=== PATIENT | female | born 1960 | race Caucasian/White ===

== ENCOUNTER 2017-01-21 18:58 | Inpatient (IN) | payer OTHER ==
[~2017-01-21] VITALS: Ht 172.7 cm; Wt 123.2 kg
[~2017-01-21 18:58] MED LIST: ALPR1TAB10 PO; ASPI81TA2 PO; Aspirin PO; BUDE10.2 IH; BUPR150T6 PO; BUPR150T8 PO; BYSTOLIC5 MG PO; CARV6.252 PO; CYCL10TA2 PO; DOXY100T9 PO; FURO-68 PO; GLIM4TAB2 PO; HYDR-2762 PO; IBUP-1060 PO; INSU100I17 SQ; INSU100I27 SQ; IPRA4AER IH; MONT10TA9 PO; NYST60PO TP; OXYC-244 PO; PANT40TA5 PO; POTA20TA4 PO; PRED-220 PO; PRED20TA PO; PREG75CA PO; PROAIR HFA8.5 GM IH; SPIR25TA PO; TIZA4CAP PO; TIZA4TAB PO; TOPI25TA32 PO; TRAM-29 PO; TRAZ150T55 PO
[2017-01-21] MEDS ORDERED: IV NORMAL SALINE 1000ML BAG 1,000 ML IV SCH (19:19)
--- NOTE | 2017-01-21 19:19 | PHYS DOC ---
Past Medical History Past Medical History: Anxiety, Asthma, Bipolar, Bronchitis, COPD, Depression, Diabetes-Type II, GERD Additional Past Medical Histor: CHRONIC BACK PAIN,spinal stenosis,edema, morbid obesity, narcotic abuse Past Surgical History: Hysterectomy, Other Additional Past Surgical Histo: Back surgery Alcohol Use: None Drug Use: None Adult General Chief Complaint Chief Complaint: MECHANICAL FALL HPI HPI Patient is a 56 year old female who presents with complaint of back injury. Patient states that she fell out of bed prior to arrival in the emergency department. Patient states that she was trying to reach out to get a pair of shoes that were away from her bed, however she lost her balance and fell off of the bed approximately 2 feet onto her knees and then rolled onto her back. Patient states that this exacerbated pain in her low back. Patient states that she has had several lower lumbar spine surgeries and has spinal stenosis. Patient's pain currently is 10 out of 10 and located in her lower back and radiates towards her right buttock. Patient states that the pain worsens with movement. Patient also states that she has been having generalized weakness. Patient has history of COPD and type 2 diabetes mellitus. The patient was noted to display increased work of breathing by EMS who gave her breathing treatment. Patient states that this did help with her breathing. Patient has had productive cough but states that she has not been paying attention to the color of her sputum. Patient denies any abdominal pain or vomiting. Review of Systems Review of Systems Constitutional: Subjective fever [] Eyes: Denies change in visual acuity, redness, or eye pain [] HENT: Nasal congestion [] Respiratory: Shortness of breath, productive cough [] Cardiovascular: Denies chest pain or edema [] GI: Denies abdominal pain, nausea, vomiting, bloody stools or diarrhea [] : Increased urinary frequency [] Musculoskeletal: Back pain [] Integument: Denies rash or skin lesions [] Neurologic: Denies headache, focal weakness or sensory changes [] Current Medications Current Medications Current Medications Medications (Trade) Dose Ordered Sig/Sunny Start Time Stop Time Status Last Admin Dose Admin Albuterol/ Ipratropium (Duoneb) 3 ml 1X ONCE 01/21/17 19:30 01/21/17 19:31 DC 01/21/17 19:32 3 ML Fentanyl Citrate (Fentanyl 2ml Vial) 50 mcg PRN Q15MIN PRN 01/21/17 19:30 01/22/17 19:29 01/21/17 20:07 50 MCG Sodium Chloride (Iv Sodium Chloride 0.9% 1000ml Bag) 1,000 ml @ 1,000 mls/hr Q1H 01/21/17 19:19 01/21/17 20:18 DC 01/21/17 20:07 1,000 MLS/HR Allergies Allergies Allergies Coded Allergies Type Severity Reaction Last Updated Verified Fish Containing Products Allergy Intermediate Itching 10/15/15 Yes Penicillins Allergy Intermediate 02/04/14 Yes Sulfa (Sulfonamide Antibiotics) Allergy Intermediate 02/04/14 Yes codeine Allergy Intermediate 02/15/16 Yes morphine Allergy Intermediate Hives 02/15/16 Yes Physical Exam Physical Exam Constitutional: Alert, afebrile, appears in chronically poor health. [] HENT: Normocephalic, atraumatic, bilateral external ears normal, oropharynx moist, no oral exudates, nose normal. [] Eyes: PERRLA, EOMI, conjunctiva normal, no discharge. [] Neck: Normal range of motion, no tenderness, supple, no stridor. [] Cardiovascular:Heart rate regular rhythm, no murmur [] Lungs & Thorax: No accessory muscle usage present, mild to moderate restriction of air movement bilaterally, expiratory wheezes bilaterally, no rales [] Abdomen: Bowel sounds normal, soft, no tenderness, no masses, no pulsatile masses. [] Skin: Warm, dry, no erythema, no rash. [] Back: Lower lumbar midline tenderness to palpation, right lower lumbar paraspinous muscle tenderness to palpation, no flank ecchymosis. [] Extremities: No tenderness, no cyanosis, no clubbing, ROM intact, no edema. [] Neurologic: Alert and oriented X 3, normal sensory function, no focal deficits noted. [] Current Patient Data Vital Signs Vital Signs Date Time Temp Pulse Resp B/P Pulse Ox O2 Delivery O2 Flow Rate FiO2 01/21/17 20:07 20 01/21/17 19:32 99 Nasal Cannula 2.0 01/21/17 19:09 98.0 67 109/71 98.0 Lab Values Laboratory Tests Test 01/21/17 19:40 01/21/17 19:53 White Blood Count 5.5x10^3/uL (4.0-11.0) Red Blood Count 4.50x10^6/uL (3.50-5.40) Hemoglobin 13.1g/dL (12.0-15.5) Hematocrit 40.5% (36.0-47.0) Mean Corpuscular Volume 90fL (79-100) Mean Corpuscular Hemoglobin 29pg (25-35) Mean Corpuscular Hemoglobin Concent 32g/dL (31-37) Red Cell Distribution Width 14.7% (11.5-14.5) H Platelet Count 116x10^3/uL (140-400) L Neutrophils (%) (Auto) 62% (31-73) Lymphocytes (%) (Auto) 29% (24-48) Monocytes (%) (Auto) 6% (0-9) Eosinophils (%) (Auto) 3% (0-3) Basophils (%) (Auto) 1% (0-3) Neutrophils # (Auto) 3.4x10^3uL (1.8-7.7) Lymphocytes # (Auto) 1.6x10^3/uL (1.0-4.8) Monocytes # (Auto) 0.3x10^3/uL (0.0-1.1) Eosinophils # (Auto) 0.1x10^3/uL (0.0-0.7) Basophils # (Auto) 0.1x10^3/uL (0.0-0.2) Sodium Level 140mmol/L (136-145) Potassium Level 4.2mmol/L (3.5-5.1) Chloride Level 105mmol/L (98-107) Carbon Dioxide Level 31mmol/L (21-32) Anion Gap 4 (6-14) L Blood Urea Nitrogen 18mg/dL (7-20) Creatinine 1.7mg/dL (0.6-1.0) H Estimated GFR (Cockcroft-Gault) 30.9 BUN/Creatinine Ratio 11 (6-20) Glucose Level 186mg/dL (70-99) H Lactic Acid Level 1.7mmol/L (0.4-2.0) Calcium Level 8.4mg/dL (8.5-10.1) L Total Bilirubin 0.3mg/dL (0.2-1.0) Aspartate Amino Transferase (AST) 11U/L (15-37) L Alanine Aminotransferase (ALT) 13U/L (14-59) L Alkaline Phosphatase 77U/L (46-116) Creatine Kinase 29U/L (26-192) Creatine Kinase MB (Mass) 0.7ng/mL (0.0-3.6) Creatine Kinase MB Relative Index % (0-4) Troponin I Quantitative < 0.017ng/mL (0.000-0.055) RP-Jye-A-Type Natriuretic Peptide 179pg/mL (0-124) H Total Protein 6.7g/dL (6.4-8.2) Albumin 3.0g/dL (3.4-5.0) L Albumin/Globulin Ratio 0.8 (1.0-1.7) L Influenza Type A Antigen Negative (NEGATIVE) Influenza Type B Antigen Negative (NEGATIVE) Urine Collection Type Unknown Urine Color Yellow Urine Clarity Clear Urine pH 5.5 Urine Specific [place] >=1.030 Urine Protein Negativemg/dL (NEG-TRACE) Urine Glucose (UA) Negativemg/dL (NEG) Urine Ketones (Stick) Negativemg/dL (NEG) Urine Blood Negative (NEG) Urine Nitrite Negative (NEG) Urine Bilirubin Small (NEG) Urine Urobilinogen Dipstick 1.0mg/dL (0.2 mg/dL) Urine Leukocyte Esterase Negative (NEG) Urine RBC 1-2/HPF (0-2) Urine WBC 1-4/HPF (0-4) Urine Squamous Epithelial Cells Mod/LPF Urine Bacteria Few/HPF (0-FEW) Urine Mucus Marked/LPF Laboratory Tests 01/21/17 19:40 Laboratory Tests 01/21/17 19:40 EKG EKG Interpreted by me: Heart 63, sinus rhythm, normal intervals, leftward axis, no acute ST/T-wave abnormalities present [] Radiology/Procedures Radiology/Procedures One view AP chest x-ray interpreted by me: No infiltrate, no effusion, normal cardiac silhouette [] Course & Med Decision Making Course & Med Decision Making Pertinent Labs and Imaging studies reviewed. (See chart for details) Patient was given IV fentanyl, fluids, and Zofran. Patient continues to complain of severe low back pain despite treatment with fentanyl. The patient is unable to function at her baseline status at this time and states that she was in too much pain to be able to go home at this time. The patient was admitted to Dr. Pulido for further care. Dragon Disclaimer Dragon Disclaimer This electronic medical record was generated, in whole or in part, using a voice recognition dictation system. Departure Departure Impression: Primary Impression: Intractable low back pain Additional Impressions: COPD (chronic obstructive pulmonary disease) DM (diabetes mellitus) Dehydration Disposition: ADMITTED INPATIENT Admitting Physician: Margret Pulido Condition: STABLE Referrals: KIRBY GIRON Jr, MD (PCP) Problem Qualifiers Additional Impressions: COPD (chronic obstructive pulmonary disease) COPD type: unspecified COPD Qualified Code: J44.9 - Chronic obstructive pulmonary disease, unspecified DM (diabetes mellitus) Diabetes mellitus type: type 2 Diabetes mellitus complication status: without complication Diabetes mellitus intermodal customer service insulin use: unspecified intermodal customer service insulin use status Qualified Code: E11.9 - Type 2 diabetes mellitus without complications CELI BAHENA MD Jan 21, 2017 19:19
[2017-01-21] MEDS ORDERED: IPRATRPIUM/ALBUTEROL 0.5/2.5MG 3 ML NEBU. NEB ONE (19:30)
[2017-01-21 20:01] LABS: BASO # 0.1 x10^3/uL (0.0-0.2); BASO % 1 % (0-3); EOS % 3 % (0-3); HEMATOCRIT 40.5 % (36.0-47.0); HEMOGLOBIN 13.1 g/dL (12.0-15.5); LYMPH # 1.6 x10^3/uL (1.0-4.8); LYMPH % 29 % (24-48); MEAN CORPUSCULAR HEMOGLOBIN 29 pg (25-35); MEAN CORPUSCULAR HGB CONC 32 g/dL (31-37); MEAN CORPUSCULAR VOLUME 90 fL (79-100); MONO % 6 % (0-9); NEUT % 62 % (31-73); PLATELET COUNT 116 x10^3/uL (140-400); RED CELL DISTRIBUTION WIDTH 14.7 % (11.5-14.5); WHITE BLOOD COUNT 5.5 x10^3/uL (4.0-11.0)
[2017-01-21 20:04] LABS: BILIRUBIN,URINE SMALL (NEG); GLUCOSE,URINE NEGATIVE (NEG); NITRITE,URINE NEGATIVE (NEG); PH,URINE 5.5; PROTEIN,URINE NEGATIVE (NEG-TRACE)
[2017-01-21] MEDS: FENTANYL PF 100 MCG/2 ML VIAL. IV PRN (20:07)
[2017-01-21 20:14] LABS: CALCIUM 8.4 mg/dL (8.5-10.1); CREATININE 1.7 mg/dL (0.6-1.0); GFR 30.9; POTASSIUM 4.2 mmol/L (3.5-5.1)
[2017-01-21 20:18] LABS: BACTERIA,URINE FEW /HPF (0-FEW); SQUAMOUS EPITHELIAL CELL,UR MOD /LPF
[2017-01-21 20:20] LABS: ALBUMIN/GLOBULIN RATIO 0.8 (1.0-1.7); TOTAL BILIRUBIN 0.3 mg/dL (0.2-1.0); TOTAL PROTEIN 6.7 g/dL (6.4-8.2)
[2017-01-21 20:25] LABS: OBC FLU VALID
[2017-01-21 20:30] LABS: CKMB MASS 0.7 ng/mL (0.0-3.6); CREATINE KINASE 29 U/L (26-192)
[2017-01-21] MEDS ORDERED: ACETAMINOPHEN 325 MG TABLET. PO PRN (21:00)
[2017-01-21] MEDS ORDERED: ONDANSETRON PF 4 MG/2 ML VIAL. IV PRN (21:00)
[2017-01-21 21:10] VITALS: BP 124/52
[2017-01-21] MEDS ORDERED: TRAMADOL 50 MG TABLET. PO PRN (22:30)
[2017-01-21] MEDS ORDERED: ALBUTEROL SULFATE 2.5 MG/3 ML NEBU. NEB PRN (22:30)
[2017-01-21] MEDS ORDERED: NYSTATIN TOPICAL POWDER 15GM BOTTLE. TP PRN (22:30)
--- NOTE | 2017-01-21 22:36 | PDOC1 ---
History and Physical Date of Admission Date of Admission DATE: 01/21/17 TIME: 22:23 Identification/Chief Complaint Chief Complaint back pain Source Source: Caregiver, Chart review, Patient History of Present Illness History of Present Illness Ms. Tomlinson, is a 56 year old female admit with acute back injury. She has prior history of back pain and weakness, and takes Zanaflex at home, Today, she fell out of bed trying to reach out to get a pair of shoes. Fell and landed on her knees, rolled to her back, severe pain and could not walk. Brought to ER by Pain was 10./ in ER, now / in room 408 pain does not radiate down her legs, and she has no new leg weakness, but pain is limiting and she cannot stand or walk she asked is she could have her home dose of Xanax Past Medical History Cardiovascular: CHF, HTN Pulmonary: Asthma, COPD CENTRAL NERVOUS SYSTEM: Other GI: GERD Heme/Onc: No pertinent hx Hepatobiliary: No pertinent hx Psych: Anxiety, Depression Musculoskeletal: Osteoarthritis, Other Rheumatologic: No pertinent hx Infectious disease: No pertinent hx Renal/: Chronic renal insuff, Urinary Incontinence Endocrine: No pertinent hx Past Surgical History Past Surgical History: Tonsillectomy, Hysterectomy, Other Family History Family History: Diabetes Social History Smoke: Quit ALCOHOL: none Drugs: None Current Problem List Problem List Problems Medical Problems: (1) COPD (chronic obstructive pulmonary disease) Status: Acute (2) Dehydration Status: Acute (3) DM (diabetes mellitus) Status: Acute (4) Intractable back pain Status: Acute (5) Intractable low back pain Status: Acute Problems: Current Medications Current Medications Current Medications Sodium Chloride (Iv Sodium Chloride 0.9% 1000ml Bag) 1,000 ml @ 1,000 mls/hr Q1H IV Last administered on 01/21/17 20:07; Start 01/21/17 at 19:19; Stop at 20:18; Status DC Albuterol/ Ipratropium (Duoneb) 3 ml 1X ONCE NEB Last administered on 19:32; Start 01/21/17 at 19:30; Stop 01/21/17 at 19:31; Status DC Fentanyl Citrate (Fentanyl 2ml Vial) 50 mcg PRN Q15MIN PRN IV PAIN GREATER THAN 3/10 Last administered on 4/7/17at 20:07; Start 01/21/17 at 19:30; Stop 01/22 at 19:29 Ondansetron HCl (Zofran) 4 mg PRN Q8HRS PRN IV NAUSEA/VOMITING; Start 01/21/17 at 21:00; Stop 01/22/17 at 20:59 Fentanyl Citrate 50 mcg 50 mcg PRN Q2HR PRN IV PAIN; Start 01/21/17 at 21:00; Stop 01/22/17 at 20:59 Sodium Chloride (Iv Sodium Chloride 0.9% 1000ml Bag) 1,000 ml @ 100 mls/hr Q10H IV ; Start 01/21/17 at 20:55; Stop 01/22/17 at 20:54 Acetaminophen (Tylenol) 650 mg PRN Q4HRS PRN PO FEVER; Start 01/21/17 at 21:00; Stop 01/22/17 at 20:59 Active Scripts Active Prednisone 10 Mg Tablet 10 Mg PO UD Take 3 tablets by mouth twice a day for 3 days, then take 2 tablets by mouth twice a day for 3 days, then take 1 tablet by mouth twice a day for 3 days, then take 1 tablet by mouth daily x 3 days, then stop. Levemir Flextouch (Insulin Detemir) 100 Unit/1 Ml Insuln.pen 18 Units SQ QHS Novolog Flexpen (Insulin Aspart) 100 Unit/1 Ml Insuln.pen 10 Units SQ TIDAC Topamax (Topiramate) 25 Mg Tablet 25 Mg PO HS Combivent Respimat Inhal (Ipratropium/Albuterol Sulfate) 4 Gm Aer.w.adap 2 Inh IH QID Lasix (Furosemide) 40 Mg Tablet 1 Tab PO DAILY Ultram (Tramadol Hcl) 50 Mg Tablet 50 Mg PO PRN Q6HRS PRN Aldactone (Spironolactone) 25 Mg Tablet 25 Mg PO DAILY Klor-Con M20 (Potassium Chloride) 20 Meq Tablet.er 40 Meq PO DAILY Nystop (Nystatin) 1 Omid Omid 1 Omid TP BID PRN [Aspirin] 325 MG Tablet. 325 Mg PO DAILYWBKFT Reported Wellbutrin Sr (Bupropion Hcl) 150 Mg Tablet.er 1 Tab PO BID Aspirin 81 Mg Tab.chew 1 Tab PO DAILY Montelukast Sodium Tablet (Montelukast Sodium) 10 Mg Tablet 10 Mg PO HS Tizanidine Hcl 4 Mg Tablet 1 Tab PO BID Carvedilol 6.25 Mg Tablet 6.25 Mg PO BIDWMEALS Pantoprazole Sodium 40 Mg Tablet.dr 40 Mg PO DAILY Trazodone Hcl 150 Mg Tablet 150 Mg PO QHS Alprazolam 1 Mg Tab.rapdis 1 Mg PO Q4HRS PRN Allergies Allergies: Coded Allergies: Fish Containing Products (Verified Allergy, Intermediate, Itching, ) allergic to fish itching Penicillins (Verified Allergy, Intermediate, 02/04/14) Sulfa (Sulfonamide Antibiotics) (Verified Allergy, Intermediate, 02/04/14) codeine (Verified Allergy, Intermediate, 02/15/16) Has tolerated oxycodone morphine (Verified Allergy, Intermediate, Hives, 02/15/16) Has tolerated oxycodone ROS Review of System difficult to obtain due to chronic encephalopathy General: No: Appetite, Chills, Fatigue, Malaise, Night Sweats, Other PSYCHOLOGICAL ROS: YES: Disorientation, Memory difficulties, Sleep disturbances , No: Anxiety, Behavioral Disorder, Concentration difficultie, Decreased libido , Depression, Hallucinations, Hostility, Mood Swings Eyes: Yes Dry eyes, No Other, No Uses contacts, No Uses glasses HEENT: YES: Heacaches Respiratory: YES: Shortness of breath, No: Other, SOB with excertion, Tachypnea, Wheezing Cardiovascular: No Chest Pain, No Edema, No Lt Headedness, No Orthopnea, No Other, No Palpitations, No Paroxysmal Noc. Dyspnea Gastrointestinal: No Abdominal Pain, No Constipation, No Diarrhea, No Hematochezia, No Melena, No Nausea, No Other, No Vomiting Genitourinary: No , No , No , No , No , No , No , No Dysuria, No Urgency Musculoskeletal: Yes Gait Disturbance, Yes Joint Pain, Yes Joint Stiffness, Yes Muscle Pain, Yes Pain In: Neurological: Yes Confusion, Yes Dizziness, Yes Gait Disturbance Skin: Yes Dry Skin Physical Exam Physical Exam , pulse 56, RR 16, but reported pain 9/10, seemed very comfortable General: Alert, Cooperative, No acute distress, Other (hirsuitism) HEENT: EOMI, Mucous membr. moist/pink Lungs: Other (poor volume and coarse rales, ) Abdomen: Normal bowel sounds, Soft Rectal Exam: not examined Extremities: No clubbing, No edema, Normal pulses Skin: No breakdown, No significant lesion Neuro: Normal speech, Normal tone, Sensation intact Psych/Mental Status: Mental status NL, Mood NL Vitals Vitals Vital Signs Date Time Temp Pulse Resp B/P Pulse Ox O2 Delivery O2 Flow Rate FiO2 01/21/17 21:10 97.6 56 18 124/52 98 Nasal Cannula 2.0 97.6 Labs Labs Laboratory Tests Test 01/21/17 19:40 01/21/17 19:53 White Blood Count 5.5x10^3/uL (4.0-11.0) Red Blood Count 4.50x10^6/uL (3.50-5.40) Hemoglobin 13.1g/dL (12.0-15.5) Hematocrit 40.5% (36.0-47.0) Mean Corpuscular Volume 90fL (79-100) Mean Corpuscular Hemoglobin 29pg (25-35) Mean Corpuscular Hemoglobin Concent 32g/dL (31-37) Red Cell Distribution Width 14.7% (11.5-14.5) Platelet Count 116x10^3/uL (140-400) Neutrophils (%) (Auto) 62% (31-73) Lymphocytes (%) (Auto) 29% (24-48) Monocytes (%) (Auto) 6% (0-9) Eosinophils (%) (Auto) 3% (0-3) Basophils (%) (Auto) 1% (0-3) Neutrophils # (Auto) 3.4x10^3uL (1.8-7.7) Lymphocytes # (Auto) 1.6x10^3/uL (1.0-4.8) Monocytes # (Auto) 0.3x10^3/uL (0.0-1.1) Eosinophils # (Auto) 0.1x10^3/uL (0.0-0.7) Basophils # (Auto) 0.1x10^3/uL (0.0-0.2) Sodium Level 140mmol/L (136-145) Potassium Level 4.2mmol/L (3.5-5.1) Chloride Level 105mmol/L (98-107) Carbon Dioxide Level 31mmol/L (21-32) Anion Gap 4 (6-14) Blood Urea Nitrogen 18mg/dL (7-20) Creatinine 1.7mg/dL (0.6-1.0) Estimated GFR (Cockcroft-Gault) 30.9 BUN/Creatinine Ratio 11 (6-20) Glucose Level 186mg/dL (70-99) Lactic Acid Level 1.7mmol/L (0.4-2.0) Calcium Level 8.4mg/dL (8.5-10.1) Total Bilirubin 0.3mg/dL (0.2-1.0) Aspartate Amino Transf (AST/SGOT) 11U/L (15-37) Alanine Aminotransferase (ALT/SGPT) 13U/L (14-59) Alkaline Phosphatase 77U/L (46-116) Creatine Kinase 29U/L (26-192) Creatine Kinase MB (Mass) 0.7ng/mL (0.0-3.6) Creatine Kinase MB Relative Index % (0-4) Troponin I Quantitative < 0.017ng/mL (0.000-0.055) JP-Hqz-C-Type Natriuretic Peptide 179pg/mL (0-124) Total Protein 6.7g/dL (6.4-8.2) Albumin 3.0g/dL (3.4-5.0) Albumin/Globulin Ratio 0.8 (1.0-1.7) Influenza Type A Antigen Negative (NEGATIVE) Influenza Type B Antigen Negative (NEGATIVE) Urine Collection Type Unknown Urine Color Yellow Urine Clarity Clear Urine pH 5.5 Urine Specific [place] >=1.030 Urine Protein Negativemg/dL (NEG-TRACE) Urine Glucose (UA) Negativemg/dL (NEG) Urine Ketones (Stick) Negativemg/dL (NEG) Urine Blood Negative (NEG) Urine Nitrite Negative (NEG) Urine Bilirubin Small (NEG) Urine Urobilinogen Dipstick 1.0mg/dL (0.2 mg/dL) Urine Leukocyte Esterase Negative (NEG) Urine RBC 1-2/HPF (0-2) Urine WBC 1-4/HPF (0-4) Urine Squamous Epithelial Cells Mod/LPF Urine Bacteria Few/HPF (0-FEW) Urine Mucus Marked/LPF Laboratory Tests Test 01/21/17 19:40 01/21/17 19:53 White Blood Count 5.5x10^3/uL (4.0-11.0) Red Blood Count 4.50x10^6/uL (3.50-5.40) Hemoglobin 13.1g/dL (12.0-15.5) Hematocrit 40.5% (36.0-47.0) Mean Corpuscular Volume 90fL (79-100) Mean Corpuscular Hemoglobin 29pg (25-35) Mean Corpuscular Hemoglobin Concent 32g/dL (31-37) Red Cell Distribution Width 14.7% (11.5-14.5) Platelet Count 116x10^3/uL (140-400) Neutrophils (%) (Auto) 62% (31-73) Lymphocytes (%) (Auto) 29% (24-48) Monocytes (%) (Auto) 6% (0-9) Eosinophils (%) (Auto) 3% (0-3) Basophils (%) (Auto) 1% (0-3) Neutrophils # (Auto) 3.4x10^3uL (1.8-7.7) Lymphocytes # (Auto) 1.6x10^3/uL (1.0-4.8) Monocytes # (Auto) 0.3x10^3/uL (0.0-1.1) Eosinophils # (Auto) 0.1x10^3/uL (0.0-0.7) Basophils # (Auto) 0.1x10^3/uL (0.0-0.2) Sodium Level 140mmol/L (136-145) Potassium Level 4.2mmol/L (3.5-5.1) Chloride Level 105mmol/L (98-107) Carbon Dioxide Level 31mmol/L (21-32) Anion Gap 4 (6-14) Blood Urea Nitrogen 18mg/dL (7-20) Creatinine 1.7mg/dL (0.6-1.0) Estimated GFR (Cockcroft-Gault) 30.9 BUN/Creatinine Ratio 11 (6-20) Glucose Level 186mg/dL (70-99) Lactic Acid Level 1.7mmol/L (0.4-2.0) Calcium Level 8.4mg/dL (8.5-10.1) Total Bilirubin 0.3mg/dL (0.2-1.0) Aspartate Amino Transf (AST/SGOT) 11U/L (15-37) Alanine Aminotransferase (ALT/SGPT) 13U/L (14-59) Alkaline Phosphatase 77U/L (46-116) Creatine Kinase 29U/L (26-192) Creatine Kinase MB (Mass) 0.7ng/mL (0.0-3.6) Creatine Kinase MB Relative Index % (0-4) Troponin I Quantitative < 0.017ng/mL (0.000-0.055) XO-Xgg-C-Type Natriuretic Peptide 179pg/mL (0-124) Total Protein 6.7g/dL (6.4-8.2) Albumin 3.0g/dL (3.4-5.0) Albumin/Globulin Ratio 0.8 (1.0-1.7) Influenza Type A Antigen Negative (NEGATIVE) Influenza Type B Antigen Negative (NEGATIVE) Urine Collection Type Unknown Urine Color Yellow Urine Clarity Clear Urine pH 5.5 Urine Specific [place] >=1.030 Urine Protein Negativemg/dL (NEG-TRACE) Urine Glucose (UA) Negativemg/dL (NEG) Urine Ketones (Stick) Negativemg/dL (NEG) Urine Blood Negative (NEG) Urine Nitrite Negative (NEG) Urine Bilirubin Small (NEG) Urine Urobilinogen Dipstick 1.0mg/dL (0.2 mg/dL) Urine Leukocyte Esterase Negative (NEG) Urine RBC 1-2/HPF (0-2) Urine WBC 1-4/HPF (0-4) Urine Squamous Epithelial Cells Mod/LPF Urine Bacteria Few/HPF (0-FEW) Urine Mucus Marked/LPF VTE Prophylaxis Ordered VTE Prophylaxis Devices: Yes VTE Pharmacological Prophylaxi: Yes Assessment/Plan Assessment/Plan fall, back pain, intractable and cannot walk consult physiatry, try lidoderm and systemic pain meds COPD, stable, chronic combined resp failure Obesity, BMI 41 DM2 CKD 3-4 at baseline from previous admits moderate malnutrition, serum alb 3.0, about the same as prior admits anxiety D/o, home dose of Xanax, PRN admit STEFFANY QUINTERO MD Jan 21, 2017 22:36
[2017-01-21] MEDS ORDERED: BUDESONIDE 0.5 MG/2 ML NEBU. NEB ONE (22:45)
[2017-01-21] MEDS: traZODone 50 MG TABLET. PO SCH (23:04)
[2017-01-21] MEDS: MONTELUKAST SODIUM 10 MG TABLET. PO SCH (23:04)
[2017-01-21] MEDS: TOPIRAMATE 25 MG TABLET. PO SCH (23:04)
[2017-01-21] MEDS: ALPRAZOLAM 1 MG TABLET PO PRN (23:04)
[2017-01-21] MEDS: LIDOCAINE (700MG/PATCH) PATCH. TD SCH (23:05)
[2017-01-21] MEDS: IV NORMAL SALINE 1000ML BAG 1,000 ML IV SCH (23:10)
[2017-01-21] MEDS: INSULIN DETEMIR 300 UNITS/3 ML INSULN.PEN. SQ SCH (23:11)
[2017-01-22 03:34] VITALS: BP 118/58
[2017-01-22 05:27] LABS: BASO % 1 % (0-3); EOS % 3 % (0-3); HEMATOCRIT 33.8 % (36.0-47.0); HEMOGLOBIN 11.2 g/dL (12.0-15.5); LYMPH # 1.3 x10^3/uL (1.0-4.8); LYMPH % 33 % (24-48); MEAN CORPUSCULAR HEMOGLOBIN 29 pg (25-35); MEAN CORPUSCULAR HGB CONC 33 g/dL (31-37); MEAN CORPUSCULAR VOLUME 89 fL (79-100); MONO % 8 % (0-9); NEUT % 56 % (31-73); PLATELET COUNT 88 x10^3/uL (140-400); RED BLOOD COUNT 3.81 x10^6/uL (3.50-5.40); RED CELL DISTRIBUTION WIDTH 14.3 % (11.5-14.5); WHITE BLOOD COUNT 3.8 x10^3/uL (4.0-11.0)
[2017-01-22 05:59] LABS: CALCIUM 7.9 mg/dL (8.5-10.1); CREATININE 1.4 mg/dL (0.6-1.0); GFR 38.6; POTASSIUM 4.1 mmol/L (3.5-5.1)
--- NOTE | 2017-01-22 06:37 | ACF ---
Admit Criteria Forms Admit Criteria Forms Admit Criteria Forms BACK PAIN Clinical Indications for Admission to Inpatient Care (Place 'X' for any and all applicable criteria): Admission is indicated for ANY ONE of the following (1)(2)(3)(4)(5)(6): [X]I. Inpatient admission required rather than observation care (Also use Back Pain: Observation Care as appropriate) because of ANY ONE of the following [X]a) Severe pain requiring acute inpatient management [ ]b) Immediate inpatient surgery [ ]c) Other condition, treatment or monitoring requiring inpatient admission [ ]II. Spine fracture with significant damage or threat of damage to vertebral column or spinal cord [ ]III. Progressive or severe neurologic deficit [ ]IV. Suspected spinal infection (e.g., epidural abscess, vertebral osteomyelitis)(10) [ ]V. Suspected cause requires inpatient treatment (eg, aortic dissection) [ ]. Cauda equina syndrome as indicated by ANY ONE of the following (9): [ ]a) Bowel dysfunction [ ]b) Bladder dysfunction [ ]c) Saddle anesthesia [ ]d) Neurologic abnormality suggesting cauda equina impingement Extended stay beyond goal length of stay may be needed for (3)(25): [ ]a) Spinal cord compression from stenosis, disk, or tumor (8)(9) [ ]b) Traumatic or pathologic vertebral fracture (33) [ ]c) Vertebral infection(10) [ ]d) Severe pain that is difficult to control [ ]e) Older patients(65 years or older) The original [employer] content created by [employer] has been revised. The portions of the content which have been revised are identified through the use of italic text or in bold, and [employer] [facility] has neither reviewed nor approved the modified material. All other unmodified content is copyright [employer]. Please see references footnoted in the original [employer] edition 2016 PALLAVI HEREDIA Jan 22, 2017 06:37
[2017-01-22 07:00] VITALS: BP 108/50
[2017-01-22] MEDS: IV NORMAL SALINE 1000ML BAG 1,000 ML IV SCH ×2 (07:22→16:55)
[2017-01-22] MEDS: BUDESONIDE 0.5 MG/2 ML NEBU. NEB SCH ×2 (07:39→19:47)
[2017-01-22] MEDS: IPRATRPIUM/ALBUTEROL 0.5/2.5MG 3 ML NEBU. NEB SCH ×4 (07:39→19:47)
[2017-01-22] MEDS ORDERED: POTASSIUM CHLORIDE 20 MEQ TABLET.ER. PO SCH (09:00)
[2017-01-22] MEDS ORDERED: NON FORMULARY ITEM (Ipratropium/Albuterol Sulfate (Combivent Respimat Inhal) 2 INH) IH SCH (09:00)
[2017-01-22] MEDS ORDERED: ASPIRIN CHEWABLE 81 MG TABLET. PO SCH (09:00)
--- NOTE | 2017-01-22 09:04 | RAD ---
Portable AP upright view CXR: Clinical indications: Shortness of breath. Cough. Comparison: February 14, 2016 Findings: No acute lung infiltrate or pleural effusion or pulmonary edema or lung mass or pneumothorax is seen. The heart size, pulmonary vasculature, mediastinum and both carol are unremarkable. Impression: No acute radiographic abnormality is seen.
[2017-01-22] MEDS: FENTANYL PF 100 MCG/2 ML VIAL. IV PRN ×4 (09:10→20:12)
[2017-01-22] MEDS: tiZANidine 4 MG TABLET. PO SCH ×2 (09:12→21:26)
[2017-01-22] MEDS: CARVEDILOL 6.25 MG TABLET. PO SCH ×2 (09:12→17:02)
[2017-01-22] MEDS: buPROPion SR 150 MG TABLET.SA PO SCH ×2 (09:12→21:26)
[2017-01-22] MEDS: PANTOPRAZOLE 40 MG TABLET.DR. PO SCH (09:12)
[2017-01-22] MEDS: ASPIRIN ENTERIC COATED 325 MG TABLET.DR. PO SCH (09:12)
[2017-01-22] MEDS: SPIRONOLACTONE 25 MG TABLET PO SCH (09:13)
[2017-01-22] MEDS: POTASSIUM CHLORIDE 20 MEQ TABLET.ER. PO SCH (09:13)
[2017-01-22] MEDS: FUROSEMIDE 40 MG TABLET. PO SCH (09:13)
[2017-01-22] MEDS: PREDNISONE 10 MG TABLET PO SCH (09:13)
[2017-01-22] MEDS ORDERED: DEXTROSE 50% 25 GM / 50ML DISP.SYRIN. IV PRN (09:15)
[2017-01-22] MEDS: LIDOCAINE (700MG/PATCH) PATCH. TD SCH (09:15)
[2017-01-22] MEDS: INSULIN ASPART 300 UNITS/3 ML INSULN.PEN SQ SCH ×5 (09:20→17:09)
--- NOTE | 2017-01-22 10:11 | EKG ---
[facility] [address] [place] [address] Test Date: 2017-01-21 Test Time: 19:47:39 Pat Name: JERMAN MORALES Department: Room: Gender: F [employer] Operator: : [id number] Requested By: CELI BAHENA Order Number: [id number] Reading MD: Measurements Intervals [place] Rate: 63 P: 54 IA: 170 QRS: -5 QRSD: 76 T: 52 QT: 448 QTc: 462 Interpretive Statements SINUS RHYTHM LEFTWARD AXIS LOW LIMB LEAD VOLTAGE NO SPECIFIC ECG ABNORMALITIES RI6.01 No previous ECG available for comparison
[2017-01-22 11:00] VITALS: BP 113/53
--- NOTE | 2017-01-22 11:15 | CONS ---
DATE OF CONSULTATION: 01/22/2017 LOCATION: The patient is in room 408. ATTENDING PHYSICIAN: Dr. Pulido. The patient was seen at the request of Dr. Pulido for rehab evaluation. HISTORY OF PRESENT ILLNESS: This is a 56-year-old right-handed female with chronic lower back pain status post lumbar spine surgery done in 2012. She usually walks using a roller walker. She also had lumbar corset. The patient fell out of the bed, trying to reach out to get paid up shoes on 01/21/2017. She landed on her knees, rolled her back, had severe pain in her back and had difficulty to get up and walk, admitted to the Emergency Room and she admits some easing of the pain with fentanyl patch. She denies any trouble with her bowel or bladder control. The patient admits some pain in her knees. PAST MEDICAL HISTORY: Significant for congestive heart failure, hypertension, asthmatic bronchitis, chronic obstructive pulmonary disease, uses oxygen by nasal cannula on a 24-hour basis, gastroesophageal reflux disease, anxiety, depression, degenerative joint disease, chronic renal insufficiency, urinary incontinence, status post tonsillectomy, hysterectomy and family history of diabetes mellitus, ____ quit smoking in the past, also history of diabetes mellitus. ALLERGIES: KNOWN ALLERGIC TO FISH CONTAINING PRODUCTS, PENICILLIN, SULFA, CODEINE AND MORPHINE. SOCIAL HISTORY: The patient lives with her family in [place], home had steps to manage. PHYSICAL EXAMINATION: Today revealed a middle-aged female. She is alert, in no acute distress, oriented to time, place, person and circumstance and follows commands appropriately, moves all 4 extremities voluntarily where she had 4+/5 grade muscle strength. Deep tendon reflexes are decreased overall with absent knee and ankle jerks. She had equal perception of touch and pinprick sensation bilaterally. She had painful limited movements of her lumbar spine. Straight leg raising test is negative bilaterally. Tenderness to palpation over lumbar paraspinal muscles extending over to sacroiliac joint area, gluteal muscles, trochanteric bursa and over medial aspect of both knees. She had crepitus on range of motion of both knee joints without any obvious knee joint effusion. She had-pain free range of motion on both hip joints. She is using oxygen by nasal cannula. She is independent with bed mobility. I have not tested her transfers or ambulation skills at present time. Her skin is intact at this time. She is receiving IV fluids. ASSESSMENT: Exacerbation of chronic lower back pain in a patient with degenerative disk disease and degenerative joint disease of lumbar vertebrae without any clinical evidence of ongoing lumbar radiculopathy. The patient presents with lumbar paraspinal and gluteal muscle strain, bilateral trochanteric bursitis, sprain knees, superimposed on degenerative joint disease of both knees, obesity and diabetes mellitus with peripheral neuropathy. The patient is status post previous lumbar spine surgery, hypertension, congestive heart failure, chronic obstructive pulmonary disease, asthmatic bronchitis, oxygen dependent, gastroesophageal reflux disease, anxiety, depression, chronic renal insufficiency and urinary incontinence. RECOMMENDATIONS: To obtain MRI scan of her lumbar vertebrae to make sure she does not have any new problems. To obtain x-rays of her knees. Agree with the plan for physical therapy and occupational therapy. She had a lumbar corset at home. I have advised her to get it and use it while up, to consider injections if the pain persist. Dr. Pulido, I appreciate asking me to participate in the care of this interesting patient. I will be glad to follow her with you as needed for her rehabilitation. KIERA MOREIRA MD DR: WHITNEY/millie JOB#: [id number] / [id number]
--- NOTE | 2017-01-22 12:46 | PDOC ---
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 moderate malnutrition, anxiety D/o, History of Present Illness History of Present Illness BAck pain 01/24 Dw physiatry for mRI today Cough - chunky sounding, chronic, cont to smoke per CREa 1,4, better - baseline IVF at 100cc.hr running Claims some dc on IV site - flushing fine per RN PT recs [facility] Lives at home CAnt walk bec of back pain PLAn: IS COnt present pain med MRI back SW for [facility] screen - they are agreeable Nicotine patch prn Current IVF to consume REcheck BMP cheryl make sure crea not worsening off IVF Cough med prn Dw RN and pt and Vitals Vitals Vital Signs Date Time Temp Pulse Resp B/P Pulse Ox O2 Delivery O2 Flow Rate FiO2 01/22/17 12:28 20 Nasal Cannula 2.0 01/22/17 11:04 98 01/22/17 11:00 97.4 66 113/53 97.4 Physical Exam General: Alert, Cooperative, No acute distress, Other (hirsuitism) Lungs: Clear, Other Abdomen: Normal bowel sounds, Soft Extremities: No clubbing, No edema, Normal pulses Skin: No breakdown, No significant lesion Labs LABS Laboratory Tests Test 01/21/17 19:40 01/21/17 19:53 01/22/17 04:44 01/22/17 11:47 White Blood Count 5.5x10^3/uL (4.0-11.0) 3.8x10^3/uL (4.0-11.0) Red Blood Count 4.50x10^6/uL (3.50-5.40) 3.81x10^6/uL (3.50-5.40) Hemoglobin 13.1g/dL (12.0-15.5) 11.2g/dL (12.0-15.5) Hematocrit 40.5% (36.0-47.0) 33.8% (36.0-47.0) Mean Corpuscular Volume 90fL (79-100) 89fL (79-100) Mean Corpuscular Hemoglobin 29pg (25-35) 29pg (25-35) Mean Corpuscular Hemoglobin Concent 32g/dL (31-37) 33g/dL (31-37) Red Cell Distribution Width 14.7% (11.5-14.5) 14.3% (11.5-14.5) Platelet Count 116x10^3/uL (140-400) 88x10^3/uL (140-400) Neutrophils (%) (Auto) 62% (31-73) 56% (31-73) Lymphocytes (%) (Auto) 29% (24-48) 33% (24-48) Monocytes (%) (Auto) 6% (0-9) 8% (0-9) Eosinophils (%) (Auto) 3% (0-3) 3% (0-3) Basophils (%) (Auto) 1% (0-3) 1% (0-3) Neutrophils # (Auto) 3.4x10^3uL (1.8-7.7) 2.2x10^3uL (1.8-7.7) Lymphocytes # (Auto) 1.6x10^3/uL (1.0-4.8) 1.3x10^3/uL (1.0-4.8) Monocytes # (Auto) 0.3x10^3/uL (0.0-1.1) 0.3x10^3/uL (0.0-1.1) Eosinophils # (Auto) 0.1x10^3/uL (0.0-0.7) 0.1x10^3/uL (0.0-0.7) Basophils # (Auto) 0.1x10^3/uL (0.0-0.2) 0.0x10^3/uL (0.0-0.2) Sodium Level 140mmol/L (136-145) 142mmol/L (136-145) Potassium Level 4.2mmol/L (3.5-5.1) 4.1mmol/L (3.5-5.1) Chloride Level 105mmol/L (98-107) 108mmol/L (98-107) Carbon Dioxide Level 31mmol/L (21-32) 28mmol/L (21-32) Anion Gap 4 (6-14) 6 (6-14) Blood Urea Nitrogen 18mg/dL (7-20) 16mg/dL (7-20) Creatinine 1.7mg/dL (0.6-1.0) 1.4mg/dL (0.6-1.0) Estimated GFR (Cockcroft-Gault) 30.9 38.6 BUN/Creatinine Ratio 11 (6-20) Glucose Level 186mg/dL (70-99) 136mg/dL (70-99) Lactic Acid Level 1.7mmol/L (0.4-2.0) Calcium Level 8.4mg/dL (8.5-10.1) 7.9mg/dL (8.5-10.1) Total Bilirubin 0.3mg/dL (0.2-1.0) Aspartate Amino Transf (AST/SGOT) 11U/L (15-37) Alanine Aminotransferase (ALT/SGPT) 13U/L (14-59) Alkaline Phosphatase 77U/L (46-116) Creatine Kinase 29U/L (26-192) Creatine Kinase MB (Mass) 0.7ng/mL (0.0-3.6) Creatine Kinase MB Relative Index % (0-4) Troponin I Quantitative < 0.017ng/mL (0.000-0.055) NC-Mtz-G-Type Natriuretic Peptide 179pg/mL (0-124) Total Protein 6.7g/dL (6.4-8.2) Albumin 3.0g/dL (3.4-5.0) Albumin/Globulin Ratio 0.8 (1.0-1.7) Influenza Type A Antigen Negative (NEGATIVE) Influenza Type B Antigen Negative (NEGATIVE) Urine Collection Type Unknown Urine Color Yellow Urine Clarity Clear Urine pH 5.5 Urine Specific [place] >=1.030 Urine Protein Negativemg/dL (NEG-TRACE) Urine Glucose (UA) Negativemg/dL (NEG) Urine Ketones (Stick) Negativemg/dL (NEG) Urine Blood Negative (NEG) Urine Nitrite Negative (NEG) Urine Bilirubin Small (NEG) Urine Urobilinogen Dipstick 1.0mg/dL (0.2 mg/dL) Urine Leukocyte Esterase Negative (NEG) Urine RBC 1-2/HPF (0-2) Urine WBC 1-4/HPF (0-4) Urine Squamous Epithelial Cells Mod/LPF Urine Bacteria Few/HPF (0-FEW) Urine Mucus Marked/LPF Glucose (Fingerstick) 186mg/dL (70-99) Review of Systems Review of Systems cough, back pain, cant walk, no n.v.d. Assessment and Plan Assessmemt and Plan Problems Medical Problems: (1) COPD (chronic obstructive pulmonary disease) Status: Acute (2) Dehydration Status: Acute (3) DM (diabetes mellitus) Status: Acute (4) Intractable back pain Status: Acute (5) Intractable low back pain Status: Acute Problems: Comment Review of Relevant I have reviewed the following items kylee (where applicable) has been applied. Labs Laboratory Tests Test 01/21/17 19:40 01/21/17 19:53 01/22/17 04:44 01/22/17 11:47 White Blood Count 5.5x10^3/uL (4.0-11.0) 3.8x10^3/uL (4.0-11.0) Red Blood Count 4.50x10^6/uL (3.50-5.40) 3.81x10^6/uL (3.50-5.40) Hemoglobin 13.1g/dL (12.0-15.5) 11.2g/dL (12.0-15.5) Hematocrit 40.5% (36.0-47.0) 33.8% (36.0-47.0) Mean Corpuscular Volume 90fL (79-100) 89fL (79-100) Mean Corpuscular Hemoglobin 29pg (25-35) 29pg (25-35) Mean Corpuscular Hemoglobin Concent 32g/dL (31-37) 33g/dL (31-37) Red Cell Distribution Width 14.7% (11.5-14.5) 14.3% (11.5-14.5) Platelet Count 116x10^3/uL (140-400) 88x10^3/uL (140-400) Neutrophils (%) (Auto) 62% (31-73) 56% (31-73) Lymphocytes (%) (Auto) 29% (24-48) 33% (24-48) Monocytes (%) (Auto) 6% (0-9) 8% (0-9) Eosinophils (%) (Auto) 3% (0-3) 3% (0-3) Basophils (%) (Auto) 1% (0-3) 1% (0-3) Neutrophils # (Auto) 3.4x10^3uL (1.8-7.7) 2.2x10^3uL (1.8-7.7) Lymphocytes # (Auto) 1.6x10^3/uL (1.0-4.8) 1.3x10^3/uL (1.0-4.8) Monocytes # (Auto) 0.3x10^3/uL (0.0-1.1) 0.3x10^3/uL (0.0-1.1) Eosinophils # (Auto) 0.1x10^3/uL (0.0-0.7) 0.1x10^3/uL (0.0-0.7) Basophils # (Auto) 0.1x10^3/uL (0.0-0.2) 0.0x10^3/uL (0.0-0.2) Sodium Level 140mmol/L (136-145) 142mmol/L (136-145) Potassium Level 4.2mmol/L (3.5-5.1) 4.1mmol/L (3.5-5.1) Chloride Level 105mmol/L (98-107) 108mmol/L (98-107) Carbon Dioxide Level 31mmol/L (21-32) 28mmol/L (21-32) Anion Gap 4 (6-14) 6 (6-14) Blood Urea Nitrogen 18mg/dL (7-20) 16mg/dL (7-20) Creatinine 1.7mg/dL (0.6-1.0) 1.4mg/dL (0.6-1.0) Estimated GFR (Cockcroft-Gault) 30.9 38.6 BUN/Creatinine Ratio 11 (6-20) Glucose Level 186mg/dL (70-99) 136mg/dL (70-99) Lactic Acid Level 1.7mmol/L (0.4-2.0) Calcium Level 8.4mg/dL (8.5-10.1) 7.9mg/dL (8.5-10.1) Total Bilirubin 0.3mg/dL (0.2-1.0) Aspartate Amino Transf (AST/SGOT) 11U/L (15-37) Alanine Aminotransferase (ALT/SGPT) 13U/L (14-59) Alkaline Phosphatase 77U/L (46-116) Creatine Kinase 29U/L (26-192) Creatine Kinase MB (Mass) 0.7ng/mL (0.0-3.6) Creatine Kinase MB Relative Index % (0-4) Troponin I Quantitative < 0.017ng/mL (0.000-0.055) YD-Hji-K-Type Natriuretic Peptide 179pg/mL (0-124) Total Protein 6.7g/dL (6.4-8.2) Albumin 3.0g/dL (3.4-5.0) Albumin/Globulin Ratio 0.8 (1.0-1.7) Influenza Type A Antigen Negative (NEGATIVE) Influenza Type B Antigen Negative (NEGATIVE) Urine Collection Type Unknown Urine Color Yellow Urine Clarity Clear Urine pH 5.5 Urine Specific [place] >=1.030 Urine Protein Negativemg/dL (NEG-TRACE) Urine Glucose (UA) Negativemg/dL (NEG) Urine Ketones (Stick) Negativemg/dL (NEG) Urine Blood Negative (NEG) Urine Nitrite Negative (NEG) Urine Bilirubin Small (NEG) Urine Urobilinogen Dipstick 1.0mg/dL (0.2 mg/dL) Urine Leukocyte Esterase Negative (NEG) Urine RBC 1-2/HPF (0-2) Urine WBC 1-4/HPF (0-4) Urine Squamous Epithelial Cells Mod/LPF Urine Bacteria Few/HPF (0-FEW) Urine Mucus Marked/LPF Glucose (Fingerstick) 186mg/dL (70-99) Laboratory Tests Test 01/21/17 19:40 01/21/17 19:53 01/22/17 04:44 01/22/17 11:47 White Blood Count 5.5x10^3/uL (4.0-11.0) 3.8x10^3/uL (4.0-11.0) Red Blood Count 4.50x10^6/uL (3.50-5.40) 3.81x10^6/uL (3.50-5.40) Hemoglobin 13.1g/dL (12.0-15.5) 11.2g/dL (12.0-15.5) Hematocrit 40.5% (36.0-47.0) 33.8% (36.0-47.0) Mean Corpuscular Volume 90fL (79-100) 89fL (79-100) Mean Corpuscular Hemoglobin 29pg (25-35) 29pg (25-35) Mean Corpuscular Hemoglobin Concent 32g/dL (31-37) 33g/dL (31-37) Red Cell Distribution Width 14.7% (11.5-14.5) 14.3% (11.5-14.5) Platelet Count 116x10^3/uL (140-400) 88x10^3/uL (140-400) Neutrophils (%) (Auto) 62% (31-73) 56% (31-73) Lymphocytes (%) (Auto) 29% (24-48) 33% (24-48) Monocytes (%) (Auto) 6% (0-9) 8% (0-9) Eosinophils (%) (Auto) 3% (0-3) 3% (0-3) Basophils (%) (Auto) 1% (0-3) 1% (0-3) Neutrophils # (Auto) 3.4x10^3uL (1.8-7.7) 2.2x10^3uL (1.8-7.7) Lymphocytes # (Auto) 1.6x10^3/uL (1.0-4.8) 1.3x10^3/uL (1.0-4.8) Monocytes # (Auto) 0.3x10^3/uL (0.0-1.1) 0.3x10^3/uL (0.0-1.1) Eosinophils # (Auto) 0.1x10^3/uL (0.0-0.7) 0.1x10^3/uL (0.0-0.7) Basophils # (Auto) 0.1x10^3/uL (0.0-0.2) 0.0x10^3/uL (0.0-0.2) Sodium Level 140mmol/L (136-145) 142mmol/L (136-145) Potassium Level 4.2mmol/L (3.5-5.1) 4.1mmol/L (3.5-5.1) Chloride Level 105mmol/L (98-107) 108mmol/L (98-107) Carbon Dioxide Level 31mmol/L (21-32) 28mmol/L (21-32) Anion Gap 4 (6-14) 6 (6-14) Blood Urea Nitrogen 18mg/dL (7-20) 16mg/dL (7-20) Creatinine 1.7mg/dL (0.6-1.0) 1.4mg/dL (0.6-1.0) Estimated GFR (Cockcroft-Gault) 30.9 38.6 BUN/Creatinine Ratio 11 (6-20) Glucose Level 186mg/dL (70-99) 136mg/dL (70-99) Lactic Acid Level 1.7mmol/L (0.4-2.0) Calcium Level 8.4mg/dL (8.5-10.1) 7.9mg/dL (8.5-10.1) Total Bilirubin 0.3mg/dL (0.2-1.0) Aspartate Amino Transf (AST/SGOT) 11U/L (15-37) Alanine Aminotransferase (ALT/SGPT) 13U/L (14-59) Alkaline Phosphatase 77U/L (46-116) Creatine Kinase 29U/L (26-192) Creatine Kinase MB (Mass) 0.7ng/mL (0.0-3.6) Creatine Kinase MB Relative Index % (0-4) Troponin I Quantitative < 0.017ng/mL (0.000-0.055) DQ-Wrg-I-Type Natriuretic Peptide 179pg/mL (0-124) Total Protein 6.7g/dL (6.4-8.2) Albumin 3.0g/dL (3.4-5.0) Albumin/Globulin Ratio 0.8 (1.0-1.7) Influenza Type A Antigen Negative (NEGATIVE) Influenza Type B Antigen Negative (NEGATIVE) Urine Collection Type Unknown Urine Color Yellow Urine Clarity Clear Urine pH 5.5 Urine Specific [place] >=1.030 Urine Protein Negativemg/dL (NEG-TRACE) Urine Glucose (UA) Negativemg/dL (NEG) Urine Ketones (Stick) Negativemg/dL (NEG) Urine Blood Negative (NEG) Urine Nitrite Negative (NEG) Urine Bilirubin Small (NEG) Urine Urobilinogen Dipstick 1.0mg/dL (0.2 mg/dL) Urine Leukocyte Esterase Negative (NEG) Urine RBC 1-2/HPF (0-2) Urine WBC 1-4/HPF (0-4) Urine Squamous Epithelial Cells Mod/LPF Urine Bacteria Few/HPF (0-FEW) Urine Mucus Marked/LPF Glucose (Fingerstick) 186mg/dL (70-99) Medications Current Medications Sodium Chloride (Iv Sodium Chloride 0.9% 1000ml Bag) 1,000 ml @ 1,000 mls/hr Q1H IV Last administered on 01/21/17 20:07; Start 01/21/17 at 19:19; Stop at 20:18; Status DC Albuterol/ Ipratropium (Duoneb) 3 ml 1X ONCE NEB Last administered on 19:32; Start 01/21/17 at 19:30; Stop 01/21/17 at 19:31; Status DC Fentanyl Citrate (Fentanyl 2ml Vial) 50 mcg PRN Q15MIN PRN IV PAIN GREATER THAN 3/10 Last administered on 01/22/17 09:10; Start 01/21/17 at 19:30; Stop 01/22 at 19:29 Ondansetron HCl (Zofran) 4 mg PRN Q8HRS PRN IV NAUSEA/VOMITING; Start 01/21/17 at 21:00; Stop 01/22/17 at 20:59 Fentanyl Citrate 50 mcg 50 mcg PRN Q2HR PRN IV PAIN Last administered on 12:28; Start 01/21/17 at 21:00; Stop 01/22/17 at 20:59 Sodium Chloride (Iv Sodium Chloride 0.9% 1000ml Bag) 1,000 ml @ 100 mls/hr Q10H IV Last administered on 01/22/17 07:22; Start 01/21/17 at 20:55; Stop at 20:54 Acetaminophen (Tylenol) 650 mg PRN Q4HRS PRN PO FEVER; Start 01/21/17 at 21:00; Stop 01/22/17 at 20:59 Lidocaine (Lidoderm) 1 patch DAILY TD Last administered on 01/22/17 09:15; Start 01/21/17 at 22:45 Aspirin (Children'S Aspirin) 81 mg DAILY PO ; Start 01/22/17 at 09:00; Status Cancel Bupropion HCl (Wellbutrin Sr) 150 mg BID PO Last administered on 01/22/17 09:12 ; Start 01/22/17 at 09:00 Carvedilol (Coreg) 6.25 mg BIDWMEALS PO Last administered on 01/22/17 09:12; Start 01/22/17 at 08:00 Furosemide (Lasix) 40 mg DAILY PO Last administered on 01/22/17 09:13; Start at 09:00 Insulin Aspart (Novolog) 10 units TIDAC SQ Last administered on 01/22/17 12:35 ; Start 01/22/17 at 07:30 Insulin Detemir (Levemir) 18 units QHS SQ Last administered on 01/21/17 23:11; Start 01/21/17 at 22:45 Montelukast Sodium (Singulair) 10 mg HS PO Last administered on 01/21/17 23:04 ; Start 01/21/17 at 22:45 Nystatin (Nystop) 1 omid PRN BID PRN TP Yeast infection; Start 01/21/17 at 22:30 Pantoprazole Sodium (Protonix) 40 mg DAILYAC PO Last administered on 01/22/17 09:12; Start 01/22/17 at 07:30 Potassium Chloride (Klor-Con) 40 meq DAILY PO ; Start 01/22/17 at 09:00; Stop 01/22/17 at 09:00; Status DC Prednisone (Prednisone) 10 mg DAILY PO Last administered on 01/22/17 09:13; Start 01/22/17 at 09:00 Spironolactone (Aldactone) 25 mg DAILY PO Last administered on 01/22/17 09:13; Start 01/22/17 at 09:00 Tizanidine HCl (Zanaflex) 4 mg BID PO Last administered on 01/22/17 09:12; Start 01/22/17 at 09:00 Topiramate (Topamax) 25 mg HS PO Last administered on 01/21/17 23:04; Start 01/21/17 at 22:45 Tramadol HCl (Ultram) 50 mg PRN Q6HRS PRN PO PAIN; Start 01/21/17 at 22:30 Alprazolam (Xanax) 1 mg PRN Q4HRS PRN PO ANXIETY / AGITATION Last administered on 01/21/17 23:04; Start 01/21/17 at 22:30 Non-Formulary Medication 2 inh QID IH ; Start 01/22/17 at 09:00; Status UNV Trazodone HCl (Desyrel) 150 mg QHS PO Last administered on 01/21/17 23:04; Start 01/21/17 at 22:45 Aspirin (Ecotrin) 325 mg DAILYWBKFT PO Last administered on 01/22/17 09:12; Start 01/22/17 at 08:00 Albuterol Sulfate (Ventolin Neb Soln) 2.5 mg PRN Q4HRS PRN NEB dyspnea or wheeze Last administered on 01/21/17 23:58; Start 01/21/17 at 22:30 Budesonide (Pulmicort) 0.5 mg RTBID NEB Last administered on 01/22/17 07:39; Start 01/22/17 at 08:00 Budesonide (Pulmicort) 0.5 mg 1X ONCE NEB Last administered on 01/21/17 23:59 ; Start 01/21/17 at 22:45; Stop 01/21/17 at 22:46; Status DC Potassium Chloride (Klor-Con) 20 meq DAILY PO Last administered on 01/22/17 09: 13; Start 01/22/17 at 09:00 Albuterol/ Ipratropium (Duoneb) 3 ml RTQID NEB Last administered on 01/22/17 11 :02; Start 01/22/17 at 08:00 Insulin Aspart (Novolog) 0-9 UNITS TIDWMEALS SQ Last administered on 01/22/17 12:35; Start 01/22/17 at 12:00 Dextrose (Dextrose 50%-Water Syringe) 12.5 gm PRN Q15MIN PRN IV SEE COMMENTS; Start 01/22/17 at 09:15 Active Scripts Active Prednisone 10 Mg Tablet 10 Mg PO UD Take 3 tablets by mouth twice a day for 3 days, then take 2 tablets by mouth twice a day for 3 days, then take 1 tablet by mouth twice a day for 3 days, then take 1 tablet by mouth daily x 3 days, then stop. Levemir Flextouch (Insulin Detemir) 100 Unit/1 Ml Insuln.pen 18 Units SQ QHS Novolog Flexpen (Insulin Aspart) 100 Unit/1 Ml Insuln.pen 10 Units SQ TIDAC Topamax (Topiramate) 25 Mg Tablet 25 Mg PO HS Combivent Respimat Inhal (Ipratropium/Albuterol Sulfate) 4 Gm Aer.w.adap 2 Inh IH QID Lasix (Furosemide) 40 Mg Tablet 1 Tab PO DAILY Ultram (Tramadol Hcl) 50 Mg Tablet 50 Mg PO PRN Q6HRS PRN Aldactone (Spironolactone) 25 Mg Tablet 25 Mg PO DAILY Klor-Con M20 (Potassium Chloride) 20 Meq Tablet.er 40 Meq PO DAILY Nystop (Nystatin) 1 Omid Omid 1 Omid TP BID PRN [Aspirin] 325 MG Tablet.dr 325 Mg PO DAILYWBKFT Reported Wellbutrin Sr (Bupropion Hcl) 150 Mg Tablet.er 1 Tab PO BID Aspirin 81 Mg Tab.chew 1 Tab PO DAILY Montelukast Sodium Tablet (Montelukast Sodium) 10 Mg Tablet 10 Mg PO HS Tizanidine Hcl 4 Mg Tablet 1 Tab PO BID Carvedilol 6.25 Mg Tablet 6.25 Mg PO BIDWMEALS Pantoprazole Sodium 40 Mg Tablet.dr 40 Mg PO DAILY Trazodone Hcl 150 Mg Tablet 150 Mg PO QHS Alprazolam 1 Mg Tab.rapdis 1 Mg PO Q4HRS PRN Vitals/I & O Vital Sign - Last 24 Hours 01/21/17 01/21/17 01/21/17 01/21/17 19:09 19:32 20:00 20:07 Temp 98.0 98.0 Pulse 67 62 Resp 20 18 20 B/P 109/71 149/70 Pulse Ox 98 99 96 O2 Delivery Room Air Nasal Cannula Room Air O2 Flow Rate 2.0 2 01/21/17 01/21/17 01/21/17 01/21/17 20:58 21:08 21:08 21:10 Temp 97.6 97.6 Pulse 64 56 Resp 18 18 B/P 100/49 124/52 Pulse Ox 96 98 98 O2 Delivery Nasal Cannula Nasal Cannula Nasal Cannula O2 Flow Rate 2 2.0 2.0 01/21/17 01/22/17 01/22/17 01/22/17 23:59 03:34 07:00 07:40 Temp 98.1 98.1 Pulse 60 68 Resp 18 20 B/P 118/58 108/50 Pulse Ox 91 95 100 97 O2 Delivery Room Air Nasal Cannula Nasal Cannula Nasal Cannula O2 Flow Rate 2.0 2.0 2.0 01/22/17 01/22/17 01/22/17 01/22/17 07:47 07:50 09:10 09:12 Pulse 68 Resp 20 B/P 108/50 Pulse Ox 97 O2 Delivery Nasal Cannula Nasal Cannula Nasal Cannula O2 Flow Rate 2.0 2.0 2.0 01/22/17 01/22/17 01/22/17 01/22/17 10:00 11:00 11:04 12:28 Temp 97.4 97.4 Pulse 66 Resp 18 20 20 B/P 113/53 Pulse Ox 98 98 O2 Delivery Nasal Cannula Nasal Cannula Nasal Cannula Nasal Cannula O2 Flow Rate 2.0 2.0 2.0 2.0 Intake and Output 01/21/17 01/21/17 01/22/17 15:00 23:00 07:00 Intake Total 1000 ml 1150 ml Balance 1000 ml 1150 ml SAMEER WU MD Jan 22, 2017 12:46
[2017-01-22] MEDS ORDERED: NICOTINE 21MG PATCH. TD PRN (13:00)
--- NOTE | 2017-01-22 13:34 | RAD ---
AP standing views of both knees History: Knee pain after a fall at 6:30 PM yesterday. Findings: No acute fracture or dislocation is seen in this limited study of both knees. No osteolytic process is seen. There is mild degenerative joint space narrowing of the medial tibiofemoral joint compartment of both knees without significant spurring. IMPRESSION: Limited study. No acute fracture. 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
--- NOTE | 2017-01-22 14:46 | RAD ---
MRI study of the lumbar spine without contrast Clinical indications: Patient fell last night. Back pain. History of spinal stenosis. History of lumbar spine surgery in 2013. Comparison: None available. Findings: No compression fracture or marrow infiltrative process or discitis or anterolisthesis is seen. The conus medullaris ends at the T12 level and appears normal morphologically. Developmentally short pedicles are seen throughout the lumbar spine. This narrows the AP dimension of the spinal canal throughout the lumbar spine. No focal disc protrusion or spinal canal stenosis or neural foraminal narrowing is seen at T12-L1 and L1-L2. At L2-3, mild diffuse disc bulge and degenerative endplate spurring is seen. Moderate degenerative facet arthropathy and ligamentum flavum hypertrophy is seen. These findings combine to form a moderate to severe spinal canal stenosis worse on the right side with narrowing of the upper right lateral recess due to more prominent facet spurring. There is moderate narrowing of the right neural foramen and mild narrowing of the left neural foramen. At L3-4, mild degenerative endplate spurring and diffuse disc bulging is seen which extends into the inferior aspect of the neural foramina bilaterally. Mild facet arthropathy and ligamentum flavum hypertrophy is seen. These findings combine to form a severe spinal canal stenosis. There is narrowing of the upper lateral recesses bilaterally. There is mild narrowing of the neural foramina bilaterally. At L4-L5, mild degenerative endplate spurring and diffuse disc bulging is seen. Moderate facet arthropathy and ligamentum flavum hypertrophy is seen. These findings combine to form a moderate to severe spinal canal stenosis. However, there is a partial decompressive laminectomy and left-sided this level. There is moderate annular of the left neural foramen and mild narrowing of the right neural foramen. At L5-S1, mild denerative endplate spurring and diffuse disc bulging is seen extending into the inferior aspect of the left neural foramen. There is moderate to severe narrowing of the left neural foramen. Laminectomy is apparent on the left side. There is soft tissue thickening of the anterolateral aspect of the left side of the spinal canal which may be due to perineural and epidural fibrosis given the patient's history and the finding of apparent laminectomy on the left side. Postsurgical changes of the posterior annulus are seen on this as well. Otherwise no prominent focal disc protrusion is seen at this level. Mild facet arthropathy and ligamentum flavum hypertrophy is seen. There is a mild spinal canal stenosis at this level. There is a small intrathecal lipoma measuring 11 mm in length and 6 mm in greatest AP or transverse dimension. IMPRESSION: No acute compression fracture. Findings as discussed above. See discussion above for each level.
[2017-01-22 15:00] VITALS: BP 111/49
[2017-01-22] MEDS: GUAIFENESIN ER 600 MG TABLET.ER PO SCH ×2 (17:02→21:26)
[2017-01-22 19:00] VITALS: BP 109/56
[2017-01-22] MEDS: MONTELUKAST SODIUM 10 MG TABLET. PO SCH (21:26)
[2017-01-22] MEDS: traZODone 50 MG TABLET. PO SCH (21:26)
[2017-01-22] MEDS: TOPIRAMATE 25 MG TABLET. PO SCH (21:26)
[2017-01-22] MEDS: INSULIN DETEMIR 300 UNITS/3 ML INSULN.PEN. SQ SCH (21:31)
[2017-01-22 23:00] VITALS: BP 114/46
[2017-01-23 03:00] VITALS: BP 115/41
[2017-01-23] MEDS: ALPRAZOLAM 1 MG TABLET PO PRN ×2 (03:02→19:50)
[2017-01-23 05:19] LABS: CALCIUM 8.2 mg/dL (8.5-10.1); CREATININE 1.5 mg/dL (0.6-1.0); GFR 35.7; POTASSIUM 4.6 mmol/L (3.5-5.1)
[2017-01-23 07:00] VITALS: BP 106/45
[2017-01-23] MEDS: INSULIN ASPART 300 UNITS/3 ML INSULN.PEN SQ SCH ×6 (07:47→17:43)
[2017-01-23] MEDS: BUDESONIDE 0.5 MG/2 ML NEBU. NEB SCH ×2 (08:05→19:30)
[2017-01-23] MEDS: IPRATRPIUM/ALBUTEROL 0.5/2.5MG 3 ML NEBU. NEB SCH ×4 (08:05→19:30)
[2017-01-23] MEDS: POTASSIUM CHLORIDE 20 MEQ TABLET.ER. PO SCH (08:24)
[2017-01-23] MEDS: LIDOCAINE (700MG/PATCH) PATCH. TD SCH (08:24)
[2017-01-23] MEDS: PREDNISONE 10 MG TABLET PO SCH (08:25)
[2017-01-23] MEDS: tiZANidine 4 MG TABLET. PO SCH ×2 (08:25→19:59)
[2017-01-23] MEDS: buPROPion SR 150 MG TABLET.SA PO SCH ×2 (08:25→19:59)
[2017-01-23] MEDS: PANTOPRAZOLE 40 MG TABLET.DR. PO SCH (08:25)
[2017-01-23] MEDS: GUAIFENESIN ER 600 MG TABLET.ER PO SCH ×2 (08:25→19:58)
[2017-01-23] MEDS: ASPIRIN ENTERIC COATED 325 MG TABLET.DR. PO SCH (08:25)
[2017-01-23] MEDS: CARVEDILOL 6.25 MG TABLET. PO SCH ×2 (08:25→17:34)
[2017-01-23] MEDS: FUROSEMIDE 40 MG TABLET. PO SCH (08:25)
[2017-01-23] MEDS: SPIRONOLACTONE 25 MG TABLET PO SCH (08:25)
[2017-01-23] MEDS: FENTANYL PF 100 MCG/2 ML VIAL. IV PRN ×4 (08:26→19:58)
[2017-01-23 11:00] VITALS: BP 116/60
--- NOTE | 2017-01-23 13:24 | PDOC ---
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 moderate malnutrition, anxiety D/o, History of Present Illness History of Present Illness BAck pain 48/10 at its best AbN mRI - eseentially disc bulges L2-S1 Hx of Staph back - but none now CAnt walk Dw physiatry tuesday- back brace etc Needs rehab - pt and agreeable EARLIER ENTRY: Cough - chunky sounding, chronic, cont to smoke per CREa 1,4, better - baseline Claims some dc on IV site - flushing fine per RN PT recs [facility] Lives at home CAnt walk bec of back pain PLAn: COnt IS Consult Neurosx - known to hIM MIght be looking at IR kyphoplasty if needed just for symptom mx - can only walk 3 steps NO other red flags of back pain NO signs of active back infection this admit Trial of fenatnyl patch Can check ESR Dw pt and Vitals Vitals Vital Signs Date Time Temp Pulse Resp B/P Pulse Ox O2 Delivery O2 Flow Rate FiO2 01/23/17 11:34 98 Nasal Cannula 2.0 01/23/17 11:00 98.2 66 20 116/60 98.2 Physical Exam General: Alert, Cooperative, No acute distress, Other (hirsuitism) Lungs: Clear, Other Abdomen: Normal bowel sounds, Soft Extremities: No clubbing, No edema, Normal pulses Skin: No breakdown, No significant lesion Labs LABS Laboratory Tests Test 01/22/17 16:54 01/22/17 21:00 01/23/17 04:10 01/23/17 07:46 Glucose (Fingerstick) 139mg/dL (70-99) 199mg/dL (70-99) 120mg/dL (70-99) Sodium Level 140mmol/L (136-145) Potassium Level 4.6mmol/L (3.5-5.1) Chloride Level 105mmol/L (98-107) Carbon Dioxide Level 30mmol/L (21-32) Anion Gap 5 (6-14) Blood Urea Nitrogen 20mg/dL (7-20) Creatinine 1.5mg/dL (0.6-1.0) Estimated GFR (Cockcroft-Gault) 35.7 Glucose Level 162mg/dL (70-99) Calcium Level 8.2mg/dL (8.5-10.1) Test 01/23/17 11:50 Glucose (Fingerstick) 180mg/dL (70-99) Review of Systems Review of Systems back pain, gen w eak, cough, no n/v/d Assessment and Plan Assessmemt and Plan Problems Medical Problems: (1) COPD (chronic obstructive pulmonary disease) Status: Acute (2) Dehydration Status: Acute (3) DM (diabetes mellitus) Status: Acute (4) Intractable back pain Status: Acute (5) Intractable low back pain Status: Acute Problems: Comment Review of Relevant I have reviewed the following items kylee (where applicable) has been applied. Labs Laboratory Tests Test 01/21/17 19:40 01/21/17 19:53 01/22/17 04:44 01/22/17 11:47 White Blood Count 5.5x10^3/uL (4.0-11.0) 3.8x10^3/uL (4.0-11.0) Red Blood Count 4.50x10^6/uL (3.50-5.40) 3.81x10^6/uL (3.50-5.40) Hemoglobin 13.1g/dL (12.0-15.5) 11.2g/dL (12.0-15.5) Hematocrit 40.5% (36.0-47.0) 33.8% (36.0-47.0) Mean Corpuscular Volume 90fL (79-100) 89fL (79-100) Mean Corpuscular Hemoglobin 29pg (25-35) 29pg (25-35) Mean Corpuscular Hemoglobin Concent 32g/dL (31-37) 33g/dL (31-37) Red Cell Distribution Width 14.7% (11.5-14.5) 14.3% (11.5-14.5) Platelet Count 116x10^3/uL (140-400) 88x10^3/uL (140-400) Neutrophils (%) (Auto) 62% (31-73) 56% (31-73) Lymphocytes (%) (Auto) 29% (24-48) 33% (24-48) Monocytes (%) (Auto) 6% (0-9) 8% (0-9) Eosinophils (%) (Auto) 3% (0-3) 3% (0-3) Basophils (%) (Auto) 1% (0-3) 1% (0-3) Neutrophils # (Auto) 3.4x10^3uL (1.8-7.7) 2.2x10^3uL (1.8-7.7) Lymphocytes # (Auto) 1.6x10^3/uL (1.0-4.8) 1.3x10^3/uL (1.0-4.8) Monocytes # (Auto) 0.3x10^3/uL (0.0-1.1) 0.3x10^3/uL (0.0-1.1) Eosinophils # (Auto) 0.1x10^3/uL (0.0-0.7) 0.1x10^3/uL (0.0-0.7) Basophils # (Auto) 0.1x10^3/uL (0.0-0.2) 0.0x10^3/uL (0.0-0.2) Sodium Level 140mmol/L (136-145) 142mmol/L (136-145) Potassium Level 4.2mmol/L (3.5-5.1) 4.1mmol/L (3.5-5.1) Chloride Level 105mmol/L (98-107) 108mmol/L (98-107) Carbon Dioxide Level 31mmol/L (21-32) 28mmol/L (21-32) Anion Gap 4 (6-14) 6 (6-14) Blood Urea Nitrogen 18mg/dL (7-20) 16mg/dL (7-20) Creatinine 1.7mg/dL (0.6-1.0) 1.4mg/dL (0.6-1.0) Estimated GFR (Cockcroft-Gault) 30.9 38.6 BUN/Creatinine Ratio 11 (6-20) Glucose Level 186mg/dL (70-99) 136mg/dL (70-99) Lactic Acid Level 1.7mmol/L (0.4-2.0) Calcium Level 8.4mg/dL (8.5-10.1) 7.9mg/dL (8.5-10.1) Total Bilirubin 0.3mg/dL (0.2-1.0) Aspartate Amino Transf (AST/SGOT) 11U/L (15-37) Alanine Aminotransferase (ALT/SGPT) 13U/L (14-59) Alkaline Phosphatase 77U/L (46-116) Creatine Kinase 29U/L (26-192) Creatine Kinase MB (Mass) 0.7ng/mL (0.0-3.6) Creatine Kinase MB Relative Index % (0-4) Troponin I Quantitative < 0.017ng/mL (0.000-0.055) HV-Pqm-C-Type Natriuretic Peptide 179pg/mL (0-124) Total Protein 6.7g/dL (6.4-8.2) Albumin 3.0g/dL (3.4-5.0) Albumin/Globulin Ratio 0.8 (1.0-1.7) Influenza Type A Antigen Negative (NEGATIVE) Influenza Type B Antigen Negative (NEGATIVE) Urine Collection Type Unknown Urine Color Yellow Urine Clarity Clear Urine pH 5.5 Urine Specific Brant >=1.030 Urine Protein Negativemg/dL (NEG-TRACE) Urine Glucose (UA) Negativemg/dL (NEG) Urine Ketones (Stick) Negativemg/dL (NEG) Urine Blood Negative (NEG) Urine Nitrite Negative (NEG) Urine Bilirubin Small (NEG) Urine Urobilinogen Dipstick 1.0mg/dL (0.2 mg/dL) Urine Leukocyte Esterase Negative (NEG) Urine RBC 1-2/HPF (0-2) Urine WBC 1-4/HPF (0-4) Urine Squamous Epithelial Cells Mod/LPF Urine Bacteria Few/HPF (0-FEW) Urine Mucus Marked/LPF Glucose (Fingerstick) 186mg/dL (70-99) Test 01/22/17 16:54 01/22/17 21:00 01/23/17 04:10 01/23/17 07:46 Glucose (Fingerstick) 139mg/dL (70-99) 199mg/dL (70-99) 120mg/dL (70-99) Sodium Level 140mmol/L (136-145) Potassium Level 4.6mmol/L (3.5-5.1) Chloride Level 105mmol/L (98-107) Carbon Dioxide Level 30mmol/L (21-32) Anion Gap 5 (6-14) Blood Urea Nitrogen 20mg/dL (7-20) Creatinine 1.5mg/dL (0.6-1.0) Estimated GFR (Cockcroft-Gault) 35.7 Glucose Level 162mg/dL (70-99) Calcium Level 8.2mg/dL (8.5-10.1) Test 01/23/17 11:50 Glucose (Fingerstick) 180mg/dL (70-99) Laboratory Tests Test 01/22/17 16:54 01/22/17 21:00 01/23/17 04:10 01/23/17 07:46 Glucose (Fingerstick) 139mg/dL (70-99) 199mg/dL (70-99) 120mg/dL (70-99) Sodium Level 140mmol/L (136-145) Potassium Level 4.6mmol/L (3.5-5.1) Chloride Level 105mmol/L (98-107) Carbon Dioxide Level 30mmol/L (21-32) Anion Gap 5 (6-14) Blood Urea Nitrogen 20mg/dL (7-20) Creatinine 1.5mg/dL (0.6-1.0) Estimated GFR (Cockcroft-Gault) 35.7 Glucose Level 162mg/dL (70-99) Calcium Level 8.2mg/dL (8.5-10.1) Test 01/23/17 11:50 Glucose (Fingerstick) 180mg/dL (70-99) Microbiology 01/22/17 Blood Culture - Preliminary, Resulted NO GROWTH AFTER 1 DAY Medications Current Medications Sodium Chloride (Iv Sodium Chloride 0.9% 1000ml Bag) 1,000 ml @ 1,000 mls/hr Q1H IV Last administered on 01/21/17 20:07; Start 01/21/17 at 19:19; Stop at 20:18; Status DC Albuterol/ Ipratropium (Duoneb) 3 ml 1X ONCE NEB Last administered on 19:32; Start 01/21/17 at 19:30; Stop 01/21/17 at 19:31; Status DC Fentanyl Citrate (Fentanyl 2ml Vial) 50 mcg PRN Q15MIN PRN IV PAIN GREATER THAN 3/10 Last administered on 01/22/17 09:10; Start 01/21/17 at 19:30; Stop 01/22 at 13:40; Status DC Ondansetron HCl (Zofran) 4 mg PRN Q8HRS PRN IV NAUSEA/VOMITING; Start 01/21/17 at 21:00; Stop 01/22/17 at 20:59; Status DC Fentanyl Citrate 50 mcg 50 mcg PRN Q2HR PRN IV PAIN Last administered on 20:12; Start 01/21/17 at 21:00; Stop 01/22/17 at 20:59; Status DC Sodium Chloride (Iv Sodium Chloride 0.9% 1000ml Bag) 1,000 ml @ 100 mls/hr Q10H IV Last administered on 01/22/17 07:22; Start 01/21/17 at 20:55; Stop at 20:54; Status DC Acetaminophen (Tylenol) 650 mg PRN Q4HRS PRN PO FEVER; Start 01/21/17 at 21:00; Stop 01/22/17 at 20:59; Status DC Lidocaine (Lidoderm) 1 patch DAILY TD Last administered on 01/23/17 08:24; Start 01/21/17 at 22:45 Aspirin (Children'S Aspirin) 81 mg DAILY PO ; Start 01/22/17 at 09:00; Status Cancel Bupropion HCl (Wellbutrin Sr) 150 mg BID PO Last administered on 01/23/17 08:25 ; Start 01/22/17 at 09:00 Carvedilol (Coreg) 6.25 mg BIDWMEALS PO Last administered on 01/23/17 08:25; Start 01/22/17 at 08:00 Furosemide (Lasix) 40 mg DAILY PO Last administered on 01/23/17 08:25; Start at 09:00 Insulin Aspart (Novolog) 10 units TIDAC SQ Last administered on 01/23/17 08:36 ; Start 01/22/17 at 07:30 Insulin Detemir (Levemir) 18 units QHS SQ Last administered on 01/22/17 21:31; Start 01/21/17 at 22:45 Montelukast Sodium (Singulair) 10 mg HS PO Last administered on 01/22/17 21:26 ; Start 01/21/17 at 22:45 Nystatin (Nystop) 1 omid PRN BID PRN TP Yeast infection; Start 01/21/17 at 22:30 Pantoprazole Sodium (Protonix) 40 mg DAILYAC PO Last administered on 01/23/17 08:25; Start 01/22/17 at 07:30 Potassium Chloride (Klor-Con) 40 meq DAILY PO ; Start 01/22/17 at 09:00; Stop 01/22/17 at 09:00; Status DC Prednisone (Prednisone) 10 mg DAILY PO Last administered on 01/23/17 08:25; Start 01/22/17 at 09:00 Spironolactone (Aldactone) 25 mg DAILY PO Last administered on 01/23/17 08:25; Start 01/22/17 at 09:00 Tizanidine HCl (Zanaflex) 4 mg BID PO Last administered on 01/23/17 08:25; Start 01/22/17 at 09:00 Topiramate (Topamax) 25 mg HS PO Last administered on 01/22/17 21:26; Start 01/21/17 at 22:45 Tramadol HCl (Ultram) 50 mg PRN Q6HRS PRN PO PAIN Last administered on 02:44; Start 01/21/17 at 22:30 Alprazolam (Xanax) 1 mg PRN Q4HRS PRN PO ANXIETY / AGITATION Last administered on 01/23/17 03:02; Start 01/21/17 at 22:30 Non-Formulary Medication 2 inh QID IH ; Start 01/22/17 at 09:00; Status UNV Trazodone HCl (Desyrel) 150 mg QHS PO Last administered on 01/22/17 21:26; Start 01/21/17 at 22:45 Aspirin (Ecotrin) 325 mg DAILYWBKFT PO Last administered on 01/23/17 08:25; Start 01/22/17 at 08:00 Albuterol Sulfate (Ventolin Neb Soln) 2.5 mg PRN Q4HRS PRN NEB dyspnea or wheeze Last administered on 01/21/17 23:58; Start 01/21/17 at 22:30 Budesonide (Pulmicort) 0.5 mg RTBID NEB Last administered on 01/23/17 08:05; Start 01/22/17 at 08:00 Budesonide (Pulmicort) 0.5 mg 1X ONCE NEB Last administered on 01/21/17 23:59 ; Start 01/21/17 at 22:45; Stop 01/21/17 at 22:46; Status DC Potassium Chloride (Klor-Con) 20 meq DAILY PO Last administered on 01/23/17 08: 24; Start 01/22/17 at 09:00 Albuterol/ Ipratropium (Duoneb) 3 ml RTQID NEB Last administered on 01/23/17 11 :33; Start 01/22/17 at 08:00 Insulin Aspart (Novolog) 0-9 UNITS TIDWMEALS SQ Last administered on 01/22/17 12:35; Start 01/22/17 at 12:00 Dextrose (Dextrose 50%-Water Syringe) 12.5 gm PRN Q15MIN PRN IV SEE COMMENTS; Start 01/22/17 at 09:15 Nicotine (Nicoderm Cq 21mg) 1 patch PRN DAILY PRN TD SMOKING CESSATION; Start 01/22/17 at 13:00 Guaifenesin (Mucinex) 600 mg BID PO Last administered on 01/23/17 08:25; Start 01/22/17 at 13:00 Fentanyl Citrate (Fentanyl 2ml Vial) 50 mcg PRN Q2HR PRN IV PAIN Last administered on 01/23/17 08:26; Start 01/23/17 at 08:00 Active Scripts Active Prednisone 10 Mg Tablet 10 Mg PO UD Take 3 tablets by mouth twice a day for 3 days, then take 2 tablets by mouth twice a day for 3 days, then take 1 tablet by mouth twice a day for 3 days, then take 1 tablet by mouth daily x 3 days, then stop. Levemir Flextouch (Insulin Detemir) 100 Unit/1 Ml Insuln.pen 18 Units SQ QHS Novolog Flexpen (Insulin Aspart) 100 Unit/1 Ml Insuln.pen 10 Units SQ TIDAC Topamax (Topiramate) 25 Mg Tablet 25 Mg PO HS Combivent Respimat Inhal (Ipratropium/Albuterol Sulfate) 4 Gm Aer.w.adap 2 Inh IH QID Lasix (Furosemide) 40 Mg Tablet 1 Tab PO DAILY Ultram (Tramadol Hcl) 50 Mg Tablet 50 Mg PO PRN Q6HRS PRN Aldactone (Spironolactone) 25 Mg Tablet 25 Mg PO DAILY Klor-Con M20 (Potassium Chloride) 20 Meq Tablet.er 40 Meq PO DAILY Nystop (Nystatin) 1 Oimd Omid 1 Omid TP BID PRN [Aspirin] 325 MG Tablet.dr 325 Mg PO DAILYWBKFT Reported Wellbutrin Sr (Bupropion Hcl) 150 Mg Tablet.er 1 Tab PO BID Aspirin 81 Mg Tab.chew 1 Tab PO DAILY Montelukast Sodium Tablet (Montelukast Sodium) 10 Mg Tablet 10 Mg PO HS Tizanidine Hcl 4 Mg Tablet 1 Tab PO BID Carvedilol 6.25 Mg Tablet 6.25 Mg PO BIDWMEALS Pantoprazole Sodium 40 Mg Tablet.dr 40 Mg PO DAILY Trazodone Hcl 150 Mg Tablet 150 Mg PO QHS Alprazolam 1 Mg Tab.rapdis 1 Mg PO Q4HRS PRN Vitals/I & O Vital Sign - Last 24 Hours 01/22/17 01/22/17 01/22/17 01/22/17 15:00 15:59 17:02 17:02 Temp 97.5 97.5 Pulse 77 77 Resp 20 20 B/P 111/49 111/49 Pulse Ox 95 O2 Delivery Nasal Cannula Nasal Cannula Nasal Cannula O2 Flow Rate 2.0 2.0 2.0 01/22/17 01/22/17 01/22/17 01/22/17 17:45 19:00 19:49 20:00 Temp 97.3 97.3 Pulse 56 Resp 20 20 B/P 109/56 Pulse Ox 95 99 O2 Delivery Nasal Cannula Nasal Cannula Nasal Cannula Nasal Cannula O2 Flow Rate 2.0 2.0 2.0 2.0 01/22/17 01/22/17 01/23/17 01/23/17 20:12 23:00 02:44 03:00 Temp 97.1 97.6 97.1 97.6 Pulse 53 52 Resp 18 18 16 18 B/P 114/46 115/41 Pulse Ox 95 93 O2 Delivery Nasal Cannula Nasal Cannula Nasal Cannula Nasal Cannula O2 Flow Rate 2.0 1.0 2.0 1.0 01/23/17 01/23/17 01/23/1701/23/17 03:45 07:00 07:40 08:06 Temp 97.8 97.8 Pulse 51 Resp 16 16 B/P 106/45 Pulse Ox 95 95 O2 Delivery Nasal Cannula Nasal Cannula Nasal Cannula Nasal Cannula O2 Flow Rate 2.0 1.0 2.0 2.0 01/23/17 01/23/17 01/23/17 01/23/17 08:10 08:25 08:26 11:00 Temp 98.2 98.2 Pulse 51 66 Resp 20 20 B/P 106/45 116/60 Pulse Ox 95 97 O2 Delivery Nasal Cannula Nasal Cannula Nasal Cannula O2 Flow Rate 2.0 2.0 1.0 01/23/17 11:34 Pulse Ox 98 O2 Delivery Nasal Cannula O2 Flow Rate 2.0 Intake and Output 01/22/17 01/22/17 01/23/17 15:00 23:00 07:00 Intake Total 180 ml Balance 180 ml SAMEER WU MD Jan 23, 2017 13:24
[2017-01-23] MEDS: FENTANYL 50MCG/HR PATCH. TD SCH (13:41)
[2017-01-23 15:00] VITALS: BP 100/57
[2017-01-23 19:00] VITALS: BP 119/37
[2017-01-23] MEDS: traZODone 50 MG TABLET. PO SCH (19:59)
[2017-01-23] MEDS: TOPIRAMATE 25 MG TABLET. PO SCH (19:59)
[2017-01-23] MEDS: MONTELUKAST SODIUM 10 MG TABLET. PO SCH (19:59)
[2017-01-23] MEDS: GUAIFENESIN DM 200MG/20MG 10 ML SYRUP. PO PRN (22:10)
[2017-01-23] MEDS: INSULIN DETEMIR 300 UNITS/3 ML INSULN.PEN. SQ SCH (22:13)
[2017-01-23 23:00] VITALS: BP 123/73
[2017-01-24 03:00] VITALS: BP 117/47
[2017-01-24] MEDS: FENTANYL PF 100 MCG/2 ML VIAL. IV PRN ×5 (04:09→20:37)
[2017-01-24] MEDS: GUAIFENESIN DM 200MG/20MG 10 ML SYRUP. PO PRN (04:14)
[2017-01-24 07:00] VITALS: BP 92/47
[2017-01-24] MEDS: BUDESONIDE 0.5 MG/2 ML NEBU. NEB SCH ×2 (07:03→20:22)
[2017-01-24] MEDS: IPRATRPIUM/ALBUTEROL 0.5/2.5MG 3 ML NEBU. NEB SCH ×4 (07:03→20:22)
[2017-01-24] MEDS: CARVEDILOL 6.25 MG TABLET. PO SCH ×2 (08:00→17:07)
[2017-01-24] MEDS: INSULIN ASPART 300 UNITS/3 ML INSULN.PEN SQ SCH ×6 (08:00→17:15)
[2017-01-24] MEDS: SPIRONOLACTONE 25 MG TABLET PO SCH (09:00)
[2017-01-24] MEDS: buPROPion SR 150 MG TABLET.SA PO SCH ×2 (09:05→20:35)
[2017-01-24] MEDS: POTASSIUM CHLORIDE 20 MEQ TABLET.ER. PO SCH (09:06)
[2017-01-24] MEDS: ASPIRIN ENTERIC COATED 325 MG TABLET.DR. PO SCH (09:06)
[2017-01-24] MEDS: GUAIFENESIN ER 600 MG TABLET.ER PO SCH ×2 (09:06→20:36)
[2017-01-24] MEDS: ALPRAZOLAM 1 MG TABLET PO PRN ×3 (09:06→20:36)
[2017-01-24] MEDS: tiZANidine 4 MG TABLET. PO SCH ×2 (09:07→20:36)
[2017-01-24] MEDS: PREDNISONE 10 MG TABLET PO SCH (09:07)
[2017-01-24] MEDS: FUROSEMIDE 40 MG TABLET. PO SCH (09:07)
[2017-01-24] MEDS: PANTOPRAZOLE 40 MG TABLET.DR. PO SCH (09:07)
[2017-01-24] MEDS: LIDOCAINE (700MG/PATCH) PATCH. TD SCH (09:08)
--- NOTE | 2017-01-24 10:42 | PDOC ---
PROGRESS NOTES Subjective Subjective She admits continued back pain. Objective Objective Vital Signs Date Time Temp Pulse Resp B/P Pulse Ox O2 Delivery O2 Flow Rate FiO2 01/24/17 09:07 20 Nasal Cannula 2.0 01/24/17 08:00 92/52 01/24/17 07:03 94 01/24/17 07:00 97.3 54 97.3 Intake and Output 01/24/17 07:00 Output Total 0 ml Balance 0 ml Output Stool Total 0 ml # Voids 5 Physical Exam Physical Exam She is sitting in bedside chair and is participating with therapy and she had mri scan evidence of lumbar spinal stenosi at L3-L4 level. Assessment Assessment Problems Medical Problems: (1) COPD (chronic obstructive pulmonary disease) Status: Acute (2) Dehydration Status: Acute (3) DM (diabetes mellitus) Status: Acute (4) Intractable back pain Status: Acute (5) Intractable low back pain Status: Acute Plan Plan of Care To ask for neurosurgical advise. Comment Review of Relevant I have reviewed the following items kylee (where applicable) has been applied. Labs Laboratory Tests Test 01/22/17 11:47 01/22/17 16:54 01/22/17 21:00 01/23/17 04:10 Glucose (Fingerstick) 186mg/dL (70-99) 139mg/dL (70-99) 199mg/dL (70-99) Sodium Level 140mmol/L (136-145) Potassium Level 4.6mmol/L (3.5-5.1) Chloride Level 105mmol/L (98-107) Carbon Dioxide Level 30mmol/L (21-32) Anion Gap 5 (6-14) Blood Urea Nitrogen 20mg/dL (7-20) Creatinine 1.5mg/dL (0.6-1.0) Estimated GFR (Cockcroft-Gault) 35.7 Glucose Level 162mg/dL (70-99) Calcium Level 8.2mg/dL (8.5-10.1) Test 01/23/17 07:46 01/23/17 11:50 01/23/17 16:54 01/23/17 20:56 Glucose (Fingerstick) 120mg/dL (70-99) 180mg/dL (70-99) 109mg/dL (70-99) 186mg/dL (70-99) Test 01/24/17 07:28 Glucose (Fingerstick) 124mg/dL (70-99) Laboratory Tests Test 01/23/17 11:50 01/23/17 16:54 01/23/17 20:56 01/24/17 07:28 Glucose (Fingerstick) 180mg/dL (70-99) 109mg/dL (70-99) 186mg/dL (70-99) 124mg/dL (70-99) Microbiology 01/22/17 Blood Culture - Preliminary, Resulted NO GROWTH AFTER 2 DAYS Medications Current Medications Sodium Chloride (Iv Sodium Chloride 0.9% 1000ml Bag) 1,000 ml @ 1,000 mls/hr Q1H IV Last administered on 01/21/17 20:07; Start 01/21/17 at 19:19; Stop at 20:18; Status DC Albuterol/ Ipratropium (Duoneb) 3 ml 1X ONCE NEB Last administered on 19:32; Start 01/21/17 at 19:30; Stop 01/21/17 at 19:31; Status DC Fentanyl Citrate (Fentanyl 2ml Vial) 50 mcg PRN Q15MIN PRN IV PAIN GREATER THAN 3/10 Last administered on 01/22/17 09:10; Start 01/21/17 at 19:30; Stop 01/22 at 13:40; Status DC Ondansetron HCl (Zofran) 4 mg PRN Q8HRS PRN IV NAUSEA/VOMITING; Start 01/21/17 at 21:00; Stop 01/22/17 at 20:59; Status DC Fentanyl Citrate 50 mcg 50 mcg PRN Q2HR PRN IV PAIN Last administered on 20:12; Start 01/21/17 at 21:00; Stop 01/22/17 at 20:59; Status DC Sodium Chloride (Iv Sodium Chloride 0.9% 1000ml Bag) 1,000 ml @ 100 mls/hr Q10H IV Last administered on 01/22/17 07:22; Start 01/21/17 at 20:55; Stop at 20:54; Status DC Acetaminophen (Tylenol) 650 mg PRN Q4HRS PRN PO FEVER; Start 01/21/17 at 21:00; Stop 01/22/17 at 20:59; Status DC Lidocaine (Lidoderm) 1 patch DAILY TD Last administered on 01/24/17 09:08; Start 01/21/17 at 22:45 Aspirin (Children'S Aspirin) 81 mg DAILY PO ; Start 01/22/17 at 09:00; Status Cancel Bupropion HCl (Wellbutrin Sr) 150 mg BID PO Last administered on 01/24/17 09: 05; Start 01/22/17 at 09:00 Carvedilol (Coreg) 6.25 mg BIDWMEALS PO Last administered on 01/23/17 17:34; Start 01/22/17 at 08:00 Furosemide (Lasix) 40 mg DAILY PO Last administered on 01/24/17 09:07; Start 01/22/17 at 09:00 Insulin Aspart (Novolog) 10 units TIDAC SQ Last administered on 01/24/17 09:27 ; Start 01/22/17 at 07:30 Insulin Detemir (Levemir) 18 units QHS SQ Last administered on 01/23/17 22:13; Start 01/21/17 at 22:45 Montelukast Sodium (Singulair) 10 mg HS PO Last administered on 01/23/17 19:59 ; Start 01/21/17 at 22:45 Nystatin (Nystop) 1 omid PRN BID PRN TP Yeast infection; Start 01/21/17 at 22:30 Pantoprazole Sodium (Protonix) 40 mg DAILYAC PO Last administered on 01/24/17 09:07; Start 01/22/17 at 07:30 Potassium Chloride (Klor-Con) 40 meq DAILY PO ; Start 01/22/17 at 09:00; Stop 01/22/17 at 09:00; Status DC Prednisone (Prednisone) 10 mg DAILY PO Last administered on 01/24/17 09:07; Start 01/22/17 at 09:00 Spironolactone (Aldactone) 25 mg DAILY PO Last administered on 01/23/17 08:25; Start 01/22/17 at 09:00 Tizanidine HCl (Zanaflex) 4 mg BID PO Last administered on 01/24/17 09:07; Start 01/22/17 at 09:00 Topiramate (Topamax) 25 mg HS PO Last administered on 01/23/17 19:59; Start 01/21/17 at 22:45 Tramadol HCl (Ultram) 50 mg PRN Q6HRS PRN PO PAIN Last administered on 02:44; Start 01/21/17 at 22:30 Alprazolam (Xanax) 1 mg PRN Q4HRS PRN PO ANXIETY / AGITATION Last administered on 01/24/17 09:06; Start 01/21/17 at 22:30 Non-Formulary Medication 2 inh QID IH ; Start 01/22/17 at 09:00; Status UNV Trazodone HCl (Desyrel) 150 mg QHS PO Last administered on 01/23/17 19:59; Start 01/21/17 at 22:45 Aspirin (Ecotrin) 325 mg DAILYWBKFT PO Last administered on 01/24/17 09:06; Start 01/22/17 at 08:00 Albuterol Sulfate (Ventolin Neb Soln) 2.5 mg PRN Q4HRS PRN NEB dyspnea or wheeze Last administered on 01/21/17 23:58; Start 01/21/17 at 22:30 Budesonide (Pulmicort) 0.5 mg RTBID NEB Last administered on 01/24/17 07:03; Start 01/22/17 at 08:00 Budesonide (Pulmicort) 0.5 mg 1X ONCE NEB Last administered on 01/21/17 23:59 ; Start 01/21/17 at 22:45; Stop 01/21/17 at 22:46; Status DC Potassium Chloride (Klor-Con) 20 meq DAILY PO Last administered on 01/24/17 09 :06; Start 01/22/17 at 09:00 Albuterol/ Ipratropium (Duoneb) 3 ml RTQID NEB Last administered on 01/24/17 07:03; Start 01/22/17 at 08:00 Insulin Aspart (Novolog) 0-9 UNITS TIDWMEALS SQ Last administered on 01/23/17 13:40; Start 01/22/17 at 12:00 Dextrose (Dextrose 50%-Water Syringe) 12.5 gm PRN Q15MIN PRN IV SEE COMMENTS; Start 01/22/17 at 09:15 Nicotine (Nicoderm Cq 21mg) 1 patch PRN DAILY PRN TD SMOKING CESSATION; Start 01/22/17 at 13:00 Guaifenesin (Mucinex) 600 mg BID PO Last administered on 01/24/17 09:06; Start 01/22/17 at 13:00 Fentanyl Citrate (Fentanyl 2ml Vial) 50 mcg PRN Q2HR PRN IV PAIN Last administered on 01/24/17 09:07; Start 01/23/17 at 08:00 Fentanyl (Duragesic 50mcg/ Hr Patch) 1 patch Q3DAYS TD Last administered on 01/23 13:41; Start 01/23/17 at 13:30 Guaifenesin (Robitussin Dm) 10 ml PRN Q6HRS PRN PO COUGH Last administered on 04:14; Start 01/23/17 at 20:15 Active Scripts Active Prednisone 10 Mg Tablet 10 Mg PO UD Take 3 tablets by mouth twice a day for 3 days, then take 2 tablets by mouth twice a day for 3 days, then take 1 tablet by mouth twice a day for 3 days, then take 1 tablet by mouth daily x 3 days, then stop. Levemir Flextouch (Insulin Detemir) 100 Unit/1 Ml Insuln.pen 18 Units SQ QHS Novolog Flexpen (Insulin Aspart) 100 Unit/1 Ml Insuln.pen 10 Units SQ TIDAC Topamax (Topiramate) 25 Mg Tablet 25 Mg PO HS Combivent Respimat Inhal (Ipratropium/Albuterol Sulfate) 4 Gm Aer.w.adap 2 Inh IH QID Lasix (Furosemide) 40 Mg Tablet 1 Tab PO DAILY Ultram (Tramadol Hcl) 50 Mg Tablet 50 Mg PO PRN Q6HRS PRN Aldactone (Spironolactone) 25 Mg Tablet 25 Mg PO DAILY Klor-Con M20 (Potassium Chloride) 20 Meq Tablet.er 40 Meq PO DAILY Nystop (Nystatin) 1 Omid Omid 1 Omid TP BID PRN [Aspirin] 325 MG Tablet.dr 325 Mg PO DAILYWBKFT Reported Wellbutrin Sr (Bupropion Hcl) 150 Mg Tablet.er 1 Tab PO BID Aspirin 81 Mg Tab.chew 1 Tab PO DAILY Montelukast Sodium Tablet (Montelukast Sodium) 10 Mg Tablet 10 Mg PO HS Tizanidine Hcl 4 Mg Tablet 1 Tab PO BID Carvedilol 6.25 Mg Tablet 6.25 Mg PO BIDWMEALS Pantoprazole Sodium 40 Mg Tablet.dr 40 Mg PO DAILY Trazodone Hcl 150 Mg Tablet 150 Mg PO QHS Alprazolam 1 Mg Tab.rapdis 1 Mg PO Q4HRS PRN Vitals/I & O Vital Sign - Last 24 Hours 01/23/17 01/23/17 01/23/17 01/23/17 11:00 11:34 13:36 13:41 Temp 98.2 98.2 Pulse 66 Resp 20 20 20 B/P 116/60 Pulse Ox 97 98 O2 Delivery Nasal Cannula Nasal Cannula Nasal Cannula Nasal Cannula O2 Flow Rate 1.0 2.0 2.0 2.0 01/23/17 01/23/17 01/23/17 01/23/17 15:00 15:42 17:34 17:35 Temp 97.3 97.3 Pulse 53 53 Resp 20 20 B/P 100/57 100/57 Pulse Ox 95 O2 Delivery Nasal Cannula Nasal Cannula Nasal Cannula O2 Flow Rate 1.0 2.0 2.0 01/23/17 01/23/17 01/23/17 01/23/17 17:43 19:00 19:30 19:31 Temp 97.2 97.2 Pulse 50 Resp 20 18 B/P 119/37 Pulse Ox 96 O2 Delivery Nasal Cannula Nasal Cannula Nasal Cannula Nasal Cannula O2 Flow Rate 2.0 2.0 2.0 2.0 01/23/17 01/23/17 01/23/17 01/24/17 19:58 20:00 23:00 03:00 Temp 97.8 97.8 97.8 97.8 Pulse 52 53 Resp 18 18 18 B/P 123/73 117/47 Pulse Ox 90 94 O2 Delivery Nasal Cannula Nasal Cannula Nasal Cannula Nasal Cannula O2 Flow Rate 2.0 2.0 2.0 2.0 01/24/17 01/24/17 01/24/17 01/24/17 04:09 04:40 07:00 07:03 Temp 97.3 97.3 Pulse 54 Resp 18 16 18 B/P 92/47 Pulse Ox 90 94 O2 Delivery Nasal Cannula Nasal Cannula Nasal Cannula Nasal Cannula O2 Flow Rate 2.0 2.0 2.0 2.0 01/24/17 01/24/17 01/24/17 07:40 08:00 09:07 Resp 20 B/P 92/52 O2 Delivery Nasal Cannula Nasal Cannula O2 Flow Rate 2.0 2.0 Intake and Output 01/23/17 01/23/17 01/24/17 15:00 23:00 07:00 Output Total 0 ml Balance 0 ml KIERA MOREIRA MD Jan 24, 2017 10:41
[2017-01-24 11:00] VITALS: BP 108/44
--- NOTE | 2017-01-24 11:52 | PDOC ---
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 Patient reports her back pain is currently 07/26. d/w nurse about plan of care. Patient is agreeable with rehab. Vitals Vitals Vital Signs Date Time Temp Pulse Resp B/P Pulse Ox O2 Delivery O2 Flow Rate FiO2 01/24/17 11:03 96 Nasal Cannula 2.0 01/24/17 09:07 20 01/24/17 08:00 92/52 01/24/17 07:00 97.3 54 97.3 Physical Exam General: Alert, Cooperative, No acute distress, Other (hirsuitism) Heart: Regular rate, Normal S1 Lungs: Clear, Other (coarse breath sounds bilaterally. Negative accessory muscle use. ) Abdomen: Normal bowel sounds, Soft, Other (obese) Extremities: No clubbing, No edema, Normal pulses Skin: No breakdown, No significant lesion Labs LABS Laboratory Tests Test 01/23/17 11:50 01/23/17 16:54 01/23/17 20:56 01/24/17 07:28 Glucose (Fingerstick) 180mg/dL (70-99) 109mg/dL (70-99) 186mg/dL (70-99) 124mg/dL (70-99) Review of Systems Review of Systems (+) acute on chronic back pain (+) SOA Denies chest pain, abdominal pain, n/v/d, or fever/chills. Assessment and Plan Assessmemt and Plan Problems Medical Problems: (1) COPD (chronic obstructive pulmonary disease) Status: Acute (2) Dehydration Status: Acute (3) DM (diabetes mellitus) Status: Acute (4) Intractable back pain Status: Acute (5) Intractable low back pain Status: Acute 1.) Acute on chronic back pain 2.) L2 - S1 disc bulges (abn MRI) 3.) s/p mechanical fall 4.) COPD chronic, stable 5.) current tobacco use 6.) Obesity, BMI 41 7.) DM2, relatively controlled 8.) CKD 3-4 at baseline 9.) moderate malnutrition, 10.) anxiety Plan: 1.) continue pulmonary toilet; encourage incentive spirometry. Maintain O2 saturation >90% 2.) continue home medications 3.) continue pain management 4.) appreciate subspecialty consult 5.) recheck AM labs Problems: Comment Review of Relevant I have reviewed the following items kylee (where applicable) has been applied. Labs Laboratory Tests Test 01/22/17 11:47 01/22/17 16:54 01/22/17 21:00 01/23/17 04:10 Glucose (Fingerstick) 186mg/dL (70-99) 139mg/dL (70-99) 199mg/dL (70-99) Sodium Level 140mmol/L (136-145) Potassium Level 4.6mmol/L (3.5-5.1) Chloride Level 105mmol/L (98-107) Carbon Dioxide Level 30mmol/L (21-32) Anion Gap 5 (6-14) Blood Urea Nitrogen 20mg/dL (7-20) Creatinine 1.5mg/dL (0.6-1.0) Estimated GFR (Cockcroft-Gault) 35.7 Glucose Level 162mg/dL (70-99) Calcium Level 8.2mg/dL (8.5-10.1) Test 01/23/17 07:46 01/23/17 11:50 01/23/17 16:54 01/23/17 20:56 Glucose (Fingerstick) 120mg/dL (70-99) 180mg/dL (70-99) 109mg/dL (70-99) 186mg/dL (70-99) Test 01/24/17 07:28 Glucose (Fingerstick) 124mg/dL (70-99) Laboratory Tests Test 01/23/17 11:50 01/23/17 16:54 01/23/17 20:56 01/24/17 07:28 Glucose (Fingerstick) 180mg/dL (70-99) 109mg/dL (70-99) 186mg/dL (70-99) 124mg/dL (70-99) Microbiology 01/22/17 Blood Culture - Preliminary, Resulted NO GROWTH AFTER 2 DAYS Medications Current Medications Sodium Chloride (Iv Sodium Chloride 0.9% 1000ml Bag) 1,000 ml @ 1,000 mls/hr Q1H IV Last administered on 01/21/17t 20:07; Start 01/21/17 at 19:19; Stop at 20:18; Status DC Albuterol/ Ipratropium (Duoneb) 3 ml 1X ONCE NEB Last administered on 19:32; Start 01/21/17 at 19:30; Stop 01/21/17 at 19:31; Status DC Fentanyl Citrate (Fentanyl 2ml Vial) 50 mcg PRN Q15MIN PRN IV PAIN GREATER THAN 3/10 Last administered on 01/22/17 09:10; Start 01/21/17 at 19:30; Stop 01/22 at 13:40; Status DC Ondansetron HCl (Zofran) 4 mg PRN Q8HRS PRN IV NAUSEA/VOMITING; Start 01/21/17 at 21:00; Stop 01/22/17 at 20:59; Status DC Fentanyl Citrate 50 mcg 50 mcg PRN Q2HR PRN IV PAIN Last administered on 20:12; Start 01/21/17 at 21:00; Stop 01/22/17 at 20:59; Status DC Sodium Chloride (Iv Sodium Chloride 0.9% 1000ml Bag) 1,000 ml @ 100 mls/hr Q10H IV Last administered on 01/22/17 07:22; Start 01/21/17 at 20:55; Stop at 20:54; Status DC Acetaminophen (Tylenol) 650 mg PRN Q4HRS PRN PO FEVER; Start 01/21/17 at 21:00; Stop 01/22/17 at 20:59; Status DC Lidocaine (Lidoderm) 1 patch DAILY TD Last administered on 01/24/17 09:08; Start 01/21/17 at 22:45 Aspirin (Children'S Aspirin) 81 mg DAILY PO ; Start 01/22/17 at 09:00; Status Cancel Bupropion HCl (Wellbutrin Sr) 150 mg BID PO Last administered on 01/24/17 09: 05; Start 01/22/17 at 09:00 Carvedilol (Coreg) 6.25 mg BIDWMEALS PO Last administered on 01/23/17 17:34; Start 01/22/17 at 08:00 Furosemide (Lasix) 40 mg DAILY PO Last administered on 01/24/17 09:07; Start 01/22/17 at 09:00 Insulin Aspart (Novolog) 10 units TIDAC SQ Last administered on 01/24/17 09:27 ; Start 01/22/17 at 07:30 Insulin Detemir (Levemir) 18 units QHS SQ Last administered on 01/23/17 22:13; Start 01/21/17 at 22:45 Montelukast Sodium (Singulair) 10 mg HS PO Last administered on 01/23/17 19:59 ; Start 01/21/17 at 22:45 Nystatin (Nystop) 1 omid PRN BID PRN TP Yeast infection; Start 01/21/17 at 22:30 Pantoprazole Sodium (Protonix) 40 mg DAILYAC PO Last administered on 01/24/17 09:07; Start 01/22/17 at 07:30 Potassium Chloride (Klor-Con) 40 meq DAILY PO ; Start 01/22/17 at 09:00; Stop 01/22/17 at 09:00; Status DC Prednisone (Prednisone) 10 mg DAILY PO Last administered on 01/24/17 09:07; Start 01/22/17 at 09:00 Spironolactone (Aldactone) 25 mg DAILY PO Last administered on 01/23/17 08:25; Start 01/22/17 at 09:00 Tizanidine HCl (Zanaflex) 4 mg BID PO Last administered on 01/24/17 09:07; Start 01/22/17 at 09:00 Topiramate (Topamax) 25 mg HS PO Last administered on 01/23/17 19:59; Start 01/21/17 at 22:45 Tramadol HCl (Ultram) 50 mg PRN Q6HRS PRN PO PAIN Last administered on 02:44; Start 01/21/17 at 22:30 Alprazolam (Xanax) 1 mg PRN Q4HRS PRN PO ANXIETY / AGITATION Last administered on 01/24/17 09:06; Start 01/21/17 at 22:30 Non-Formulary Medication 2 inh QID IH ; Start 01/22/17 at 09:00; Status UNV Trazodone HCl (Desyrel) 150 mg QHS PO Last administered on 01/23/17 19:59; Start 01/21/17 at 22:45 Aspirin (Ecotrin) 325 mg DAILYWBKFT PO Last administered on 01/24/17 09:06; Start 01/22/17 at 08:00 Albuterol Sulfate (Ventolin Neb Soln) 2.5 mg PRN Q4HRS PRN NEB dyspnea or wheeze Last administered on 01/21/17 23:58; Start 01/21/17 at 22:30 Budesonide (Pulmicort) 0.5 mg RTBID NEB Last administered on 01/24/17 07:03; Start 01/22/17 at 08:00 Budesonide (Pulmicort) 0.5 mg 1X ONCE NEB Last administered on 01/21/17 23:59 ; Start 01/21/17 at 22:45; Stop 01/21/17 at 22:46; Status DC Potassium Chloride (Klor-Con) 20 meq DAILY PO Last administered on 01/24/17 09 :06; Start 01/22/17 at 09:00 Albuterol/ Ipratropium (Duoneb) 3 ml RTQID NEB Last administered on 01/24/17 11:03; Start 01/22/17 at 08:00 Insulin Aspart (Novolog) 0-9 UNITS TIDWMEALS SQ Last administered on 01/23/17 13:40; Start 01/22/17 at 12:00 Dextrose (Dextrose 50%-Water Syringe) 12.5 gm PRN Q15MIN PRN IV SEE COMMENTS; Start 01/22/17 at 09:15 Nicotine (Nicoderm Cq 21mg) 1 patch PRN DAILY PRN TD SMOKING CESSATION; Start 01/22/17 at 13:00 Guaifenesin (Mucinex) 600 mg BID PO Last administered on 01/24/17 09:06; Start 01/22/17 at 13:00 Fentanyl Citrate (Fentanyl 2ml Vial) 50 mcg PRN Q2HR PRN IV PAIN Last administered on 01/24/17 09:07; Start 01/23/17 at 08:00 Fentanyl (Duragesic 50mcg/ Hr Patch) 1 patch Q3DAYS TD Last administered on 01/23 13:41; Start 01/23/17 at 13:30 Guaifenesin (Robitussin Dm) 10 ml PRN Q6HRS PRN PO COUGH Last administered on t 04:14; Start 01/23/17 at 20:15 Active Scripts Active Prednisone 10 Mg Tablet 10 Mg PO UD Take 3 tablets by mouth twice a day for 3 days, then take 2 tablets by mouth twice a day for 3 days, then take 1 tablet by mouth twice a day for 3 days, then take 1 tablet by mouth daily x 3 days, then stop. Levemir Flextouch (Insulin Detemir) 100 Unit/1 Ml Insuln.pen 18 Units SQ QHS Novolog Flexpen (Insulin Aspart) 100 Unit/1 Ml Insuln.pen 10 Units SQ TIDAC Topamax (Topiramate) 25 Mg Tablet 25 Mg PO HS Combivent Respimat Inhal (Ipratropium/Albuterol Sulfate) 4 Gm Aer.w.adap 2 Inh IH QID Lasix (Furosemide) 40 Mg Tablet 1 Tab PO DAILY Ultram (Tramadol Hcl) 50 Mg Tablet 50 Mg PO PRN Q6HRS PRN Aldactone (Spironolactone) 25 Mg Tablet 25 Mg PO DAILY Klor-Con M20 (Potassium Chloride) 20 Meq Tablet.er 40 Meq PO DAILY Nystop (Nystatin) 1 Omid Omid 1 Omid TP BID PRN [Aspirin] 325 MG Tablet. 325 Mg PO DAILYWBKFT Reported Wellbutrin Sr (Bupropion Hcl) 150 Mg Tablet.er 1 Tab PO BID Aspirin 81 Mg Tab.chew 1 Tab PO DAILY Montelukast Sodium Tablet (Montelukast Sodium) 10 Mg Tablet 10 Mg PO HS Tizanidine Hcl 4 Mg Tablet 1 Tab PO BID Carvedilol 6.25 Mg Tablet 6.25 Mg PO BIDWMEALS Pantoprazole Sodium 40 Mg Tablet.dr 40 Mg PO DAILY Trazodone Hcl 150 Mg Tablet 150 Mg PO QHS Alprazolam 1 Mg Tab.rapdis 1 Mg PO Q4HRS PRN Vitals/I & O Vital Sign - Last 24 Hours 01/23/17 01/23/17 01/23/17 01/23/17 13:36 13:41 15:00 15:42 Temp 97.3 97.3 Pulse 53 Resp 20 20 20 B/P 100/57 Pulse Ox 95 O2 Delivery Nasal Cannula Nasal Cannula Nasal Cannula Nasal Cannula O2 Flow Rate 2.0 2.0 1.0 2.0 01/23/17 01/23/17 01/23/17 01/23/17 17:34 17:35 17:43 19:00 Temp 97.2 97.2 Pulse 53 50 Resp 20 20 18 B/P 100/57 119/37 Pulse Ox 96 O2 Delivery Nasal Cannula Nasal Cannula Nasal Cannula O2 Flow Rate 2.0 2.0 2.0 01/23/17 01/23/17 01/23/17 01/23/17 19:30 19:31 19:58 20:00 Resp 18 O2 Delivery Nasal Cannula Nasal Cannula Nasal Cannula Nasal Cannula O2 Flow Rate 2.0 2.0 2.0 2.0 01/23/17 01/24/17 01/24/17 01/24/17 23:00 03:00 04:09 04:40 Temp 97.8 97.8 97.8 97.8 Pulse 52 53 Resp 18 18 18 16 B/P 123/73 117/47 Pulse Ox 90 94 O2 Delivery Nasal Cannula Nasal Cannula Nasal Cannula Nasal Cannula O2 Flow Rate 2.0 2.0 2.0 2.0 01/24/17 01/24/17 01/24/17 01/24/17 07:00 07:03 07:40 08:00 Temp 97.3 97.3 Pulse 54 Resp 18 B/P 92/47 92/52 Pulse Ox 90 94 O2 Delivery Nasal Cannula Nasal Cannula Nasal Cannula O2 Flow Rate 2.0 2.0 2.0 01/24/17 01/24/17 09:07 11:03 Resp 20 Pulse Ox 96 O2 Delivery Nasal Cannula Nasal Cannula O2 Flow Rate 2.0 2.0 Intake and Output 01/23/17 01/23/17 01/24/17 15:00 23:00 07:00 Output Total 0 ml Balance 0 ml CASTLE,NIAL K III DO Jan 24, 2017 11:52
[2017-01-24 15:00] VITALS: BP 124/61
--- NOTE | 2017-01-24 15:24 | PDOC ---
Provider Note Provider Note Patient seen and examined c/o pain all over but worse in low back. neuro intact lumbar spinal stenosis at L3-4 which has been present for a considerable period. Poor surgical candidate. Recommend conservative treatment. Full consult to follow. ADINA LAI MD Jan 24, 2017 15:24
[2017-01-24 19:17] VITALS: BP 118/43
[2017-01-24] MEDS: traZODone 50 MG TABLET. PO SCH (20:35)
[2017-01-24] MEDS: MONTELUKAST SODIUM 10 MG TABLET. PO SCH (20:35)
[2017-01-24] MEDS: TOPIRAMATE 25 MG TABLET. PO SCH (20:35)
[2017-01-24] MEDS: INSULIN DETEMIR 300 UNITS/3 ML INSULN.PEN. SQ SCH (20:47)
[2017-01-24 23:01] VITALS: BP 113/58
[2017-01-25 03:05] VITALS: BP 114/60
[2017-01-25 04:15] LABS: BASO # 0.1 x10^3/uL (0.0-0.2); BASO % 1 % (0-3); EOS % 1 % (0-3); HEMATOCRIT 35.7 % (36.0-47.0); HEMOGLOBIN 11.7 g/dL (12.0-15.5); LYMPH # 1.4 x10^3/uL (1.0-4.8); LYMPH % 27 % (24-48); MEAN CORPUSCULAR HEMOGLOBIN 30 pg (25-35); MEAN CORPUSCULAR HGB CONC 33 g/dL (31-37); MEAN CORPUSCULAR VOLUME 90 fL (79-100); MONO % 6 % (0-9); NEUT % 64 % (31-73); PLATELET COUNT 89 x10^3/uL (140-400); RED BLOOD COUNT 3.95 x10^6/uL (3.50-5.40); RED CELL DISTRIBUTION WIDTH 14.2 % (11.5-14.5); WHITE BLOOD COUNT 5.1 x10^3/uL (4.0-11.0)
[2017-01-25 04:19] LABS: CALCIUM 7.8 mg/dL (8.5-10.1); GFR 25.6; POTASSIUM 4.3 mmol/L (3.5-5.1)
[2017-01-25] MEDS: FENTANYL PF 100 MCG/2 ML VIAL. IV PRN ×5 (04:42→21:03)
[2017-01-25] MEDS: ALPRAZOLAM 1 MG TABLET PO PRN ×3 (04:54→21:03)
[2017-01-25 07:00] VITALS: BP 105/71
[2017-01-25] MEDS: BUDESONIDE 0.5 MG/2 ML NEBU. NEB SCH ×2 (07:30→20:33)
[2017-01-25] MEDS: IPRATRPIUM/ALBUTEROL 0.5/2.5MG 3 ML NEBU. NEB SCH ×4 (07:30→20:33)
[2017-01-25] MEDS: INSULIN ASPART 300 UNITS/3 ML INSULN.PEN SQ SCH ×6 (07:53→17:24)
--- NOTE | 2017-01-25 09:40 | PDOC ---
PROGRESS NOTES Subjective Subjective She admits continued low back pain. Objective Objective Vital Signs Date Time Temp Pulse Resp B/P Pulse Ox O2 Delivery O2 Flow Rate FiO2 01/25/17 08:00 Nasal Cannula 2.0 01/25/17 07:36 87 01/25/17 07:00 97.3 72 16 105/71 97.3 Intake and Output 01/25/17 06:59 Intake Total 520 ml Balance 520 ml Intake Oral 520 ml # Voids 3 Physical Exam Physical Exam She is moving under supervision and did walk for short distances with physical therapy with roller walker.Dr Lehman felt she is a poor surgical candidate for further lumbar spine surgery. Assessment Assessment Problems Medical Problems: (1) COPD (chronic obstructive pulmonary disease) Status: Acute (2) Dehydration Status: Acute (3) DM (diabetes mellitus) Status: Acute (4) Intractable back pain Status: Acute (5) Intractable low back pain Status: Acute Plan Plan of Senior Care with home health follow up when medically stable. Comment Review of Relevant I have reviewed the following items kylee (where applicable) has been applied. Labs Laboratory Tests Test 01/23/17 11:50 01/23/17 16:54 01/23/17 20:56 01/24/17 07:28 Glucose (Fingerstick) 180mg/dL (70-99) 109mg/dL (70-99) 186mg/dL (70-99) 124mg/dL (70-99) Test 01/24/17 11:38 01/24/17 16:34 01/24/17 20:41 01/25/17 03:40 Glucose (Fingerstick) 95mg/dL (70-99) 156mg/dL (70-99) 136mg/dL (70-99) White Blood Count 5.1x10^3/uL (4.0-11.0) Red Blood Count 3.95x10^6/uL (3.50-5.40) Hemoglobin 11.7g/dL (12.0-15.5) Hematocrit 35.7% (36.0-47.0) Mean Corpuscular Volume 90fL (79-100) Mean Corpuscular Hemoglobin 30pg (25-35) Mean Corpuscular Hemoglobin Concent 33g/dL (31-37) Red Cell Distribution Width 14.2% (11.5-14.5) Platelet Count 89x10^3/uL (140-400) Neutrophils (%) (Auto) 64% (31-73) Lymphocytes (%) (Auto) 27% (24-48) Monocytes (%) (Auto) 6% (0-9) Eosinophils (%) (Auto) 1% (0-3) Basophils (%) (Auto) 1% (0-3) Neutrophils # (Auto) 3.3x10^3uL (1.8-7.7) Lymphocytes # (Auto) 1.4x10^3/uL (1.0-4.8) Monocytes # (Auto) 0.3x10^3/uL (0.0-1.1) Eosinophils # (Auto) 0.1x10^3/uL (0.0-0.7) Basophils # (Auto) 0.1x10^3/uL (0.0-0.2) Sodium Level 141mmol/L (136-145) Potassium Level 4.3mmol/L (3.5-5.1) Chloride Level 102mmol/L (98-107) Carbon Dioxide Level 33mmol/L (21-32) Anion Gap 6 (6-14) Blood Urea Nitrogen 35mg/dL (7-20) Creatinine 2.0mg/dL (0.6-1.0) Estimated GFR (Cockcroft-Gault) 25.6 Glucose Level 132mg/dL (70-99) Calcium Level 7.8mg/dL (8.5-10.1) Test 01/25/17 07:46 Glucose (Fingerstick) 146mg/dL (70-99) Laboratory Tests Test 01/24/17 11:38 01/24/17 16:34 01/24/17 20:41 01/25/17 03:40 Glucose (Fingerstick) 95mg/dL (70-99) 156mg/dL (70-99) 136mg/dL (70-99) White Blood Count 5.1x10^3/uL (4.0-11.0) Red Blood Count 3.95x10^6/uL (3.50-5.40) Hemoglobin 11.7g/dL (12.0-15.5) Hematocrit 35.7% (36.0-47.0) Mean Corpuscular Volume 90fL (79-100) Mean Corpuscular Hemoglobin 30pg (25-35) Mean Corpuscular Hemoglobin Concent 33g/dL (31-37) Red Cell Distribution Width 14.2% (11.5-14.5) Platelet Count 89x10^3/uL (140-400) Neutrophils (%) (Auto) 64% (31-73) Lymphocytes (%) (Auto) 27% (24-48) Monocytes (%) (Auto) 6% (0-9) Eosinophils (%) (Auto) 1% (0-3) Basophils (%) (Auto) 1% (0-3) Neutrophils # (Auto) 3.3x10^3uL (1.8-7.7) Lymphocytes # (Auto) 1.4x10^3/uL (1.0-4.8) Monocytes # (Auto) 0.3x10^3/uL (0.0-1.1) Eosinophils # (Auto) 0.1x10^3/uL (0.0-0.7) Basophils # (Auto) 0.1x10^3/uL (0.0-0.2) Sodium Level 141mmol/L (136-145) Potassium Level 4.3mmol/L (3.5-5.1) Chloride Level 102mmol/L (98-107) Carbon Dioxide Level 33mmol/L (21-32) Anion Gap 6 (6-14) Blood Urea Nitrogen 35mg/dL (7-20) Creatinine 2.0mg/dL (0.6-1.0) Estimated GFR (Cockcroft-Gault) 25.6 Glucose Level 132mg/dL (70-99) Calcium Level 7.8mg/dL (8.5-10.1) Test 01/25/17 07:46 Glucose (Fingerstick) 146mg/dL (70-99) Microbiology 01/22/17 Blood Culture - Preliminary, Resulted NO GROWTH AFTER 3 DAYS Medications Current Medications Sodium Chloride (Iv Sodium Chloride 0.9% 1000ml Bag) 1,000 ml @ 1,000 mls/hr Q1H IV Last administered on 01/21/17t 20:07; Start 01/21/17 at 19:19; Stop at 20:18; Status DC Albuterol/ Ipratropium (Duoneb) 3 ml 1X ONCE NEB Last administered on 19:32; Start 01/21/17 at 19:30; Stop 01/21/17 at 19:31; Status DC Fentanyl Citrate (Fentanyl 2ml Vial) 50 mcg PRN Q15MIN PRN IV PAIN GREATER THAN 3/10 Last administered on 01/22/17 09:10; Start 01/21/17 at 19:30; Stop 01/22 at 13:40; Status DC Ondansetron HCl (Zofran) 4 mg PRN Q8HRS PRN IV NAUSEA/VOMITING; Start 01/21/17 at 21:00; Stop 01/22/17 at 20:59; Status DC Fentanyl Citrate 50 mcg 50 mcg PRN Q2HR PRN IV PAIN Last administered on 20:12; Start 01/21/17 at 21:00; Stop 01/22/17 at 20:59; Status DC Sodium Chloride (Iv Sodium Chloride 0.9% 1000ml Bag) 1,000 ml @ 100 mls/hr Q10H IV Last administered on 01/22/17 07:22; Start 01/21/17 at 20:55; Stop at 20:54; Status DC Acetaminophen (Tylenol) 650 mg PRN Q4HRS PRN PO FEVER; Start 01/21/17 at 21:00; Stop 01/22/17 at 20:59; Status DC Lidocaine (Lidoderm) 1 patch DAILY TD Last administered on 01/24/17 09:08; Start 01/21/17 at 22:45 Aspirin (Children'S Aspirin) 81 mg DAILY PO ; Start 01/22/17 at 09:00; Status Cancel Bupropion HCl (Wellbutrin Sr) 150 mg BID PO Last administered on 01/24/17 20: 35; Start 01/22/17 at 09:00 Carvedilol (Coreg) 6.25 mg BIDWMEALS PO Last administered on 01/24/17 17:07; Start 01/22/17 at 08:00 Furosemide (Lasix) 40 mg DAILY PO Last administered on 01/24/17 09:07; Start 01/22/17 at 09:00 Insulin Aspart (Novolog) 10 units TIDAC SQ Last administered on 01/24/17 17:15 ; Start 01/22/17 at 07:30 Insulin Detemir (Levemir) 18 units QHS SQ Last administered on 01/24/17 20:47 ; Start 01/21/17 at 22:45 Montelukast Sodium (Singulair) 10 mg HS PO Last administered on 01/24/17 20:35 ; Start 01/21/17 at 22:45 Nystatin (Nystop) 1 omid PRN BID PRN TP Yeast infection; Start 01/21/17 at 22:30 Pantoprazole Sodium (Protonix) 40 mg DAILYAC PO Last administered on 01/24/17 09:07; Start 01/22/17 at 07:30 Potassium Chloride (Klor-Con) 40 meq DAILY PO ; Start 01/22/17 at 09:00; Stop 01/22/17 at 09:00; Status DC Prednisone (Prednisone) 10 mg DAILY PO Last administered on 01/24/17 09:07; Start 01/22/17 at 09:00 Spironolactone (Aldactone) 25 mg DAILY PO Last administered on 01/23/17 08:25; Start 01/22/17 at 09:00 Tizanidine HCl (Zanaflex) 4 mg BID PO Last administered on 01/24/17 20:36; Start 01/22/17 at 09:00 Topiramate (Topamax) 25 mg HS PO Last administered on 01/24/17 20:35; Start at 22:45 Tramadol HCl (Ultram) 50 mg PRN Q6HRS PRN PO PAIN Last administered on 02:44; Start 01/21/17 at 22:30 Alprazolam (Xanax) 1 mg PRN Q4HRS PRN PO ANXIETY / AGITATION Last administered on 01/25/17 04:54; Start 01/21/17 at 22:30 Non-Formulary Medication 2 inh QID IH ; Start 01/22/17 at 09:00; Status UNV Trazodone HCl (Desyrel) 150 mg QHS PO Last administered on 01/24/17 20:35; Start 01/21/17 at 22:45 Aspirin (Ecotrin) 325 mg DAILYWBKFT PO Last administered on 01/24/17 09:06; Start 01/22/17 at 08:00 Albuterol Sulfate (Ventolin Neb Soln) 2.5 mg PRN Q4HRS PRN NEB dyspnea or wheeze Last administered on 01/21/17 23:58; Start 01/21/17 at 22:30 Budesonide (Pulmicort) 0.5 mg RTBID NEB Last administered on 01/25/17 07:30; Start 01/22/17 at 08:00 Budesonide (Pulmicort) 0.5 mg 1X ONCE NEB Last administered on 01/21/17 23:59 ; Start 01/21/17 at 22:45; Stop 01/21/17 at 22:46; Status DC Potassium Chloride (Klor-Con) 20 meq DAILY PO Last administered on 01/24/17 09 :06; Start 01/22/17 at 09:00 Albuterol/ Ipratropium (Duoneb) 3 ml RTQID NEB Last administered on 01/25/17 07:30; Start 01/22/17 at 08:00 Insulin Aspart (Novolog) 0-9 UNITS TIDWMEALS SQ Last administered on 01/24/17 17:15; Start 01/22/17 at 12:00 Dextrose (Dextrose 50%-Water Syringe) 12.5 gm PRN Q15MIN PRN IV SEE COMMENTS; Start 01/22/17 at 09:15 Nicotine (Nicoderm Cq 21mg) 1 patch PRN DAILY PRN TD SMOKING CESSATION; Start 01/22/17 at 13:00 Guaifenesin (Mucinex) 600 mg BID PO Last administered on 01/24/17 20:36; Start 01/22/17 at 13:00 Fentanyl Citrate (Fentanyl 2ml Vial) 50 mcg PRN Q2HR PRN IV PAIN Last administered on 01/25/17 04:42; Start 01/23/17 at 08:00 Fentanyl (Duragesic 50mcg/ Hr Patch) 1 patch Q3DAYS TD Last administered on 01/23 13:41; Start 01/23/17 at 13:30 Guaifenesin (Robitussin Dm) 10 ml PRN Q6HRS PRN PO COUGH Last administered on 04:14; Start 01/23/17 at 20:15 Active Scripts Active Prednisone 10 Mg Tablet 10 Mg PO UD Take 3 tablets by mouth twice a day for 3 days, then take 2 tablets by mouth twice a day for 3 days, then take 1 tablet by mouth twice a day for 3 days, then take 1 tablet by mouth daily x 3 days, then stop. Levemir Flextouch (Insulin Detemir) 100 Unit/1 Ml Insuln.pen 18 Units SQ QHS Novolog Flexpen (Insulin Aspart) 100 Unit/1 Ml Insuln.pen 10 Units SQ TIDAC Topamax (Topiramate) 25 Mg Tablet 25 Mg PO HS Combivent Respimat Inhal (Ipratropium/Albuterol Sulfate) 4 Gm Aer.w.adap 2 Inh IH QID Lasix (Furosemide) 40 Mg Tablet 1 Tab PO DAILY Ultram (Tramadol Hcl) 50 Mg Tablet 50 Mg PO PRN Q6HRS PRN Aldactone (Spironolactone) 25 Mg Tablet 25 Mg PO DAILY Klor-Con M20 (Potassium Chloride) 20 Meq Tablet.er 40 Meq PO DAILY Nystop (Nystatin) 1 Omid Omid 1 Omid TP BID PRN [Aspirin] 325 MG Tablet.dr 325 Mg PO DAILYWBKFT Reported Wellbutrin Sr (Bupropion Hcl) 150 Mg Tablet.er 1 Tab PO BID Aspirin 81 Mg Tab.chew 1 Tab PO DAILY Montelukast Sodium Tablet (Montelukast Sodium) 10 Mg Tablet 10 Mg PO HS Tizanidine Hcl 4 Mg Tablet 1 Tab PO BID Carvedilol 6.25 Mg Tablet 6.25 Mg PO BIDWMEALS Pantoprazole Sodium 40 Mg Tablet.dr 40 Mg PO DAILY Trazodone Hcl 150 Mg Tablet 150 Mg PO QHS Alprazolam 1 Mg Tab.rapdis 1 Mg PO Q4HRS PRN Vitals/I & O Vital Sign - Last 24 Hours 01/24/17 01/24/17 01/24/17 01/24/17 11:00 11:03 13:12 15:00 Temp 97.7 97.4 97.7 97.4 Pulse 49 51 Resp 18 20 18 B/P 108/44 124/61 Pulse Ox 96 96 93 O2 Delivery Nasal Cannula Nasal Cannula Nasal Cannula Nasal Cannula O2 Flow Rate 2.0 2.0 2.0 2.0 4/10/17 4/10/17 4/10/17 4/10/17 15:23 17:07 17:07 19:17 Temp 97.7 97.7 Pulse 51 56 Resp 20 18 B/P 124/61 118/43 Pulse Ox 93 O2 Delivery Nasal Cannula Nasal Cannula Nasal Cannula O2 Flow Rate 2.0 2.0 2.0 01/24/17 01/24/17 01/24/17 01/24/17 20:00 20:23 20:25 20:37 Resp 20 Pulse Ox 96 96 96 O2 Delivery Nasal Cannula Nasal Cannula Nasal Cannula Nasal Cannula O2 Flow Rate 2.0 2.0 2.0 2.0 01/24/17 01/24/17 01/25/17 01/25/17 21:10 23:01 03:05 04:42 Temp 97.7 97.7 97.7 97.7 Pulse 59 52 Resp 20 18 18 B/P 113/58 114/60 Pulse Ox 94 95 95 O2 Delivery Nasal Cannula Nasal Cannula Nasal Cannula O2 Flow Rate 2.0 2.0 2.0 01/25/17 01/25/17 01/25/17 01/25/17 05:15 07:00 07:33 07:36 Temp 97.3 97.3 Pulse 72 Resp 16 B/P 105/71 Pulse Ox 95 95 87 87 O2 Delivery Nasal Cannula Nasal Cannula Room Air Room Air O2 Flow Rate 2.0 2.0 01/25/17 08:00 O2 Delivery Nasal Cannula O2 Flow Rate 2.0 Intake and Output 01/24/17 01/24/17 01/25/17 14:59 22:59 06:59 Intake Total 120 ml 400 ml Balance 120 ml 400 ml KIERA MOREIRA MD Jan 25, 2017 09:40
[2017-01-25] MEDS: LIDOCAINE (700MG/PATCH) PATCH. TD SCH (10:00)
[2017-01-25] MEDS: tiZANidine 4 MG TABLET. PO SCH ×2 (10:01→21:02)
[2017-01-25] MEDS: GUAIFENESIN ER 600 MG TABLET.ER PO SCH ×2 (10:01→21:03)
[2017-01-25] MEDS: POTASSIUM CHLORIDE 20 MEQ TABLET.ER. PO SCH (10:01)
[2017-01-25] MEDS: PREDNISONE 10 MG TABLET PO SCH (10:01)
[2017-01-25] MEDS: ASPIRIN ENTERIC COATED 325 MG TABLET.DR. PO SCH (10:01)
[2017-01-25] MEDS: FUROSEMIDE 40 MG TABLET. PO SCH (10:01)
[2017-01-25] MEDS: buPROPion SR 150 MG TABLET.SA PO SCH ×2 (10:02→21:02)
[2017-01-25] MEDS: SPIRONOLACTONE 25 MG TABLET PO SCH (10:02)
[2017-01-25] MEDS: CARVEDILOL 6.25 MG TABLET. PO SCH ×2 (10:02→17:00)
[2017-01-25] MEDS: PANTOPRAZOLE 40 MG TABLET.DR. PO SCH (10:02)
[2017-01-25 11:00] VITALS: BP 133/67
--- NOTE | 2017-01-25 12:13 | PDOC ---
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 No acute events overnight. Patient reports continued pain to her lower back; patient was able to walk and work with physical therapy. d/w Dr. Saba and nurse about plan of care. Vitals Vitals Vital Signs Date Time Temp Pulse Resp B/P Pulse Ox O2 Delivery O2 Flow Rate FiO2 01/25/17 11:00 97.5 69 16 133/67 91 Nasal Cannula 2.0 97.5 Physical Exam General: Alert, Cooperative, No acute distress, Other (hirsuitism) Heart: Regular rate, Normal S1 Lungs: Clear, Other ( Negative accessory muscle use. ) Abdomen: Normal bowel sounds, Soft, Other (obese) Extremities: No clubbing, No edema, Normal pulses, Other (neurovascularly intact. ) Skin: No breakdown, No significant lesion Labs LABS Laboratory Tests Test 01/24/17 16:34 01/24/17 20:41 01/25/17 03:40 01/25/17 07:46 Glucose (Fingerstick) 156mg/dL (70-99) 136mg/dL (70-99) 146mg/dL (70-99) White Blood Count 5.1x10^3/uL (4.0-11.0) Red Blood Count 3.95x10^6/uL (3.50-5.40) Hemoglobin 11.7g/dL (12.0-15.5) Hematocrit 35.7% (36.0-47.0) Mean Corpuscular Volume 90fL (79-100) Mean Corpuscular Hemoglobin 30pg (25-35) Mean Corpuscular Hemoglobin Concent 33g/dL (31-37) Red Cell Distribution Width 14.2% (11.5-14.5) Platelet Count 89x10^3/uL (140-400) Neutrophils (%) (Auto) 64% (31-73) Lymphocytes (%) (Auto) 27% (24-48) Monocytes (%) (Auto) 6% (0-9) Eosinophils (%) (Auto) 1% (0-3) Basophils (%) (Auto) 1% (0-3) Neutrophils # (Auto) 3.3x10^3uL (1.8-7.7) Lymphocytes # (Auto) 1.4x10^3/uL (1.0-4.8) Monocytes # (Auto) 0.3x10^3/uL (0.0-1.1) Eosinophils # (Auto) 0.1x10^3/uL (0.0-0.7) Basophils # (Auto) 0.1x10^3/uL (0.0-0.2) Sodium Level 141mmol/L (136-145) Potassium Level 4.3mmol/L (3.5-5.1) Chloride Level 102mmol/L (98-107) Carbon Dioxide Level 33mmol/L (21-32) Anion Gap 6 (6-14) Blood Urea Nitrogen 35mg/dL (7-20) Creatinine 2.0mg/dL (0.6-1.0) Estimated GFR (Cockcroft-Gault) 25.6 Glucose Level 132mg/dL (70-99) Calcium Level 7.8mg/dL (8.5-10.1) Test 01/25/17 11:16 Glucose (Fingerstick) 111mg/dL (70-99) Review of Systems Review of Systems (+) acute on chronic back pain (+) sob, improved Denies chest pain, numbness/tingling, abdominal pain, n/v/d, or fever/chills. Assessment and Plan Assessmemt and Plan Problems Medical Problems: (1) COPD (chronic obstructive pulmonary disease) Status: Acute (2) Dehydration Status: Acute (3) DM (diabetes mellitus) Status: Acute (4) Intractable back pain Status: Acute (5) Intractable low back pain Status: Acute 1.) Acute on chronic back pain 2.) L2 - S1 disc bulges (abn MRI) 3.) s/p mechanical fall 4.) COPD chronic, stable 5.) current tobacco use 6.) Obesity, BMI 41 7.) DM2, relatively controlled 8.) MUKESH/CKD 3-4 at baseline 9.) moderate malnutrition, 10.) anxiety Plan: 1.) continue pulmonary toilet; encourage incentive spirometry. Maintain O2 saturation >90% 2.) continue home medications 3.) continue pain management 4.) appreciate subspecialty consult 5.) recheck AM labs 6.) nephrology consult for MUKESH, elevated creatinine. appreciate recommendations. 7.) continue discharge planning to SNF vs. Home with Home Health. Problems: Comment Review of Relevant I have reviewed the following items kylee (where applicable) has been applied. Labs Laboratory Tests Test 01/23/17 16:54 01/23/17 20:56 01/24/17 07:28 01/24/17 11:38 Glucose (Fingerstick) 109mg/dL (70-99) 186mg/dL (70-99) 124mg/dL (70-99) 95mg/dL (70-99) Test 01/24/17 16:34 01/24/17 20:41 01/25/17 03:40 01/25/17 07:46 Glucose (Fingerstick) 156mg/dL (70-99) 136mg/dL (70-99) 146mg/dL (70-99) White Blood Count 5.1x10^3/uL (4.0-11.0) Red Blood Count 3.95x10^6/uL (3.50-5.40) Hemoglobin 11.7g/dL (12.0-15.5) Hematocrit 35.7% (36.0-47.0) Mean Corpuscular Volume 90fL (79-100) Mean Corpuscular Hemoglobin 30pg (25-35) Mean Corpuscular Hemoglobin Concent 33g/dL (31-37) Red Cell Distribution Width 14.2% (11.5-14.5) Platelet Count 89x10^3/uL (140-400) Neutrophils (%) (Auto) 64% (31-73) Lymphocytes (%) (Auto) 27% (24-48) Monocytes (%) (Auto) 6% (0-9) Eosinophils (%) (Auto) 1% (0-3) Basophils (%) (Auto) 1% (0-3) Neutrophils # (Auto) 3.3x10^3uL (1.8-7.7) Lymphocytes # (Auto) 1.4x10^3/uL (1.0-4.8) Monocytes # (Auto) 0.3x10^3/uL (0.0-1.1) Eosinophils # (Auto) 0.1x10^3/uL (0.0-0.7) Basophils # (Auto) 0.1x10^3/uL (0.0-0.2) Sodium Level 141mmol/L (136-145) Potassium Level 4.3mmol/L (3.5-5.1) Chloride Level 102mmol/L (98-107) Carbon Dioxide Level 33mmol/L (21-32) Anion Gap 6 (6-14) Blood Urea Nitrogen 35mg/dL (7-20) Creatinine 2.0mg/dL (0.6-1.0) Estimated GFR (Cockcroft-Gault) 25.6 Glucose Level 132mg/dL (70-99) Calcium Level 7.8mg/dL (8.5-10.1) Test 01/25/17 11:16 Glucose (Fingerstick) 111mg/dL (70-99) Laboratory Tests Test 01/24/17 16:34 01/24/17 20:41 01/25/17 03:40 01/25/17 07:46 Glucose (Fingerstick) 156mg/dL (70-99) 136mg/dL (70-99) 146mg/dL (70-99) White Blood Count 5.1x10^3/uL (4.0-11.0) Red Blood Count 3.95x10^6/uL (3.50-5.40) Hemoglobin 11.7g/dL (12.0-15.5) Hematocrit 35.7% (36.0-47.0) Mean Corpuscular Volume 90fL (79-100) Mean Corpuscular Hemoglobin 30pg (25-35) Mean Corpuscular Hemoglobin Concent 33g/dL (31-37) Red Cell Distribution Width 14.2% (11.5-14.5) Platelet Count 89x10^3/uL (140-400) Neutrophils (%) (Auto) 64% (31-73) Lymphocytes (%) (Auto) 27% (24-48) Monocytes (%) (Auto) 6% (0-9) Eosinophils (%) (Auto) 1% (0-3) Basophils (%) (Auto) 1% (0-3) Neutrophils # (Auto) 3.3x10^3uL (1.8-7.7) Lymphocytes # (Auto) 1.4x10^3/uL (1.0-4.8) Monocytes # (Auto) 0.3x10^3/uL (0.0-1.1) Eosinophils # (Auto) 0.1x10^3/uL (0.0-0.7) Basophils # (Auto) 0.1x10^3/uL (0.0-0.2) Sodium Level 141mmol/L (136-145) Potassium Level 4.3mmol/L (3.5-5.1) Chloride Level 102mmol/L (98-107) Carbon Dioxide Level 33mmol/L (21-32) Anion Gap 6 (6-14) Blood Urea Nitrogen 35mg/dL (7-20) Creatinine 2.0mg/dL (0.6-1.0) Estimated GFR (Cockcroft-Gault) 25.6 Glucose Level 132mg/dL (70-99) Calcium Level 7.8mg/dL (8.5-10.1) Test 01/25/17 11:16 Glucose (Fingerstick) 111mg/dL (70-99) Microbiology 01/22/17 Blood Culture - Preliminary, Resulted NO GROWTH AFTER 3 DAYS Medications Current Medications Sodium Chloride (Iv Sodium Chloride 0.9% 1000ml Bag) 1,000 ml @ 1,000 mls/hr Q1H IV Last administered on 01/21/17 20:07; Start 01/21/17 at 19:19; Stop at 20:18; Status DC Albuterol/ Ipratropium (Duoneb) 3 ml 1X ONCE NEB Last administered on 19:32; Start 01/21/17 at 19:30; Stop 01/21/17 at 19:31; Status DC Fentanyl Citrate (Fentanyl 2ml Vial) 50 mcg PRN Q15MIN PRN IV PAIN GREATER THAN 3/10 Last administered on 01/22/17 09:10; Start 01/21/17 at 19:30; Stop 01/22 at 13:40; Status DC Ondansetron HCl (Zofran) 4 mg PRN Q8HRS PRN IV NAUSEA/VOMITING; Start 01/21/17 at 21:00; Stop 01/22/17 at 20:59; Status DC Fentanyl Citrate 50 mcg 50 mcg PRN Q2HR PRN IV PAIN Last administered on 20:12; Start 01/21/17 at 21:00; Stop 01/22/17 at 20:59; Status DC Sodium Chloride (Iv Sodium Chloride 0.9% 1000ml Bag) 1,000 ml @ 100 mls/hr Q10H IV Last administered on 01/22/17 07:22; Start 01/21/17 at 20:55; Stop at 20:54; Status DC Acetaminophen (Tylenol) 650 mg PRN Q4HRS PRN PO FEVER; Start 01/21/17 at 21:00; Stop 01/22/17 at 20:59; Status DC Lidocaine (Lidoderm) 1 patch DAILY TD Last administered on 01/25/17 10:00; Start 01/21/17 at 22:45 Aspirin (Children'S Aspirin) 81 mg DAILY PO ; Start 01/22/17 at 09:00; Status Cancel Bupropion HCl (Wellbutrin Sr) 150 mg BID PO Last administered on 01/25/17 10: 02; Start 01/22/17 at 09:00 Carvedilol (Coreg) 6.25 mg BIDWMEALS PO Last administered on 01/25/17 10:02; Start 01/22/17 at 08:00 Furosemide (Lasix) 40 mg DAILY PO Last administered on 01/25/17 10:01; Start 01/22/17 at 09:00 Insulin Aspart (Novolog) 10 units TIDAC SQ Last administered on 01/25/17 10:13 ; Start 01/22/17 at 07:30 Insulin Detemir (Levemir) 18 units QHS SQ Last administered on 01/24/17 20:47 ; Start 01/21/17 at 22:45 Montelukast Sodium (Singulair) 10 mg HS PO Last administered on 01/24/17 20:35 ; Start 01/21/17 at 22:45 Nystatin (Nystop) 1 evelia PRN BID PRN TP Yeast infection; Start 01/21/17 at 22:30 Pantoprazole Sodium (Protonix) 40 mg DAILYAC PO Last administered on 01/25/17 10:02; Start 01/22/17 at 07:30 Potassium Chloride (Klor-Con) 40 meq DAILY PO ; Start 01/22/17 at 09:00; Stop 01/22/17 at 09:00; Status DC Prednisone (Prednisone) 10 mg DAILY PO Last administered on 01/25/17 10:01; Start 01/22/17 at 09:00 Spironolactone (Aldactone) 25 mg DAILY PO Last administered on 01/25/17 10:02 ; Start 01/22/17 at 09:00 Tizanidine HCl (Zanaflex) 4 mg BID PO Last administered on 01/25/17 10:01; Start 01/22/17 at 09:00 Topiramate (Topamax) 25 mg HS PO Last administered on 01/24/17 20:35; Start at 22:45 Tramadol HCl (Ultram) 50 mg PRN Q6HRS PRN PO PAIN Last administered on 02:44; Start 01/21/17 at 22:30 Alprazolam (Xanax) 1 mg PRN Q4HRS PRN PO ANXIETY / AGITATION Last administered on 01/25/17 10:01; Start 01/21/17 at 22:30 Non-Formulary Medication 2 inh QID IH ; Start 01/22/17 at 09:00; Status UNV Trazodone HCl (Desyrel) 150 mg QHS PO Last administered on 01/24/17 20:35; Start 01/21/17 at 22:45 Aspirin (Ecotrin) 325 mg DAILYWBKFT PO Last administered on 01/25/17 10:01; Start 01/22/17 at 08:00 Albuterol Sulfate (Ventolin Neb Soln) 2.5 mg PRN Q4HRS PRN NEB dyspnea or wheeze Last administered on 01/21/17 23:58; Start 01/21/17 at 22:30 Budesonide (Pulmicort) 0.5 mg RTBID NEB Last administered on 01/25/17 07:30; Start 01/22/17 at 08:00 Budesonide (Pulmicort) 0.5 mg 1X ONCE NEB Last administered on 01/21/17 23:59 ; Start 01/21/17 at 22:45; Stop 01/21/17 at 22:46; Status DC Potassium Chloride (Klor-Con) 20 meq DAILY PO Last administered on 01/25/17 10 :01; Start 01/22/17 at 09:00 Albuterol/ Ipratropium (Duoneb) 3 ml RTQID NEB Last administered on 01/25/17 11:05; Start 01/22/17 at 08:00 Insulin Aspart (Novolog) 0-9 UNITS TIDWMEALS SQ Last administered on 01/24/17 17:15; Start 01/22/17 at 12:00 Dextrose (Dextrose 50%-Water Syringe) 12.5 gm PRN Q15MIN PRN IV SEE COMMENTS; Start 01/22/17 at 09:15 Nicotine (Nicoderm Cq 21mg) 1 patch PRN DAILY PRN TD SMOKING CESSATION; Start 01/22/17 at 13:00 Guaifenesin (Mucinex) 600 mg BID PO Last administered on 01/25/17 10:01; Start 01/22/17 at 13:00 Fentanyl Citrate (Fentanyl 2ml Vial) 50 mcg PRN Q2HR PRN IV PAIN Last administered on 01/25/17 10:01; Start 01/23/17 at 08:00 Fentanyl (Duragesic 50mcg/ Hr Patch) 1 patch Q3DAYS TD Last administered on 01/23 13:41; Start 01/23/17 at 13:30 Guaifenesin (Robitussin Dm) 10 ml PRN Q6HRS PRN PO COUGH Last administered on 04:14; Start 01/23/17 at 20:15 Active Scripts Active Prednisone 10 Mg Tablet 10 Mg PO UD Take 3 tablets by mouth twice a day for 3 days, then take 2 tablets by mouth twice a day for 3 days, then take 1 tablet by mouth twice a day for 3 days, then take 1 tablet by mouth daily x 3 days, then stop. Levemir Flextouch (Insulin Detemir) 100 Unit/1 Ml Insuln.pen 18 Units SQ QHS Novolog Flexpen (Insulin Aspart) 100 Unit/1 Ml Insuln.pen 10 Units SQ TIDAC Topamax (Topiramate) 25 Mg Tablet 25 Mg PO HS Combivent Respimat Inhal (Ipratropium/Albuterol Sulfate) 4 Gm Aer.w.adap 2 Inh IH QID Lasix (Furosemide) 40 Mg Tablet 1 Tab PO DAILY Ultram (Tramadol Hcl) 50 Mg Tablet 50 Mg PO PRN Q6HRS PRN Aldactone (Spironolactone) 25 Mg Tablet 25 Mg PO DAILY Klor-Con M20 (Potassium Chloride) 20 Meq Tablet.er 40 Meq PO DAILY Nystop (Nystatin) 1 Evelia Evelia 1 Evelia TP BID PRN [Aspirin] 325 MG Tablet.dr 325 Mg PO DAILYWBKFT Reported Wellbutrin Sr (Bupropion Hcl) 150 Mg Tablet.er 1 Tab PO BID Aspirin 81 Mg Tab.chew 1 Tab PO DAILY Montelukast Sodium Tablet (Montelukast Sodium) 10 Mg Tablet 10 Mg PO HS Tizanidine Hcl 4 Mg Tablet 1 Tab PO BID Carvedilol 6.25 Mg Tablet 6.25 Mg PO BIDWMEALS Pantoprazole Sodium 40 Mg Tablet.dr 40 Mg PO DAILY Trazodone Hcl 150 Mg Tablet 150 Mg PO QHS Alprazolam 1 Mg Tab.rapdis 1 Mg PO Q4HRS PRN Vitals/I & O Vital Sign - Last 24 Hours 01/24/17 01/24/17 01/24/17 01/24/17 13:12 15:00 15:23 17:07 Temp 97.4 97.4 Pulse 51 51 Resp 20 18 B/P 124/61 124/61 Pulse Ox 93 O2 Delivery Nasal Cannula Nasal Cannula Nasal Cannula O2 Flow Rate 2.0 2.0 2.0 01/24/17 01/24/17 01/24/17 01/24/17 17:07 19:17 20:00 20:23 Temp 97.7 97.7 Pulse 56 Resp 20 18 B/P 118/43 Pulse Ox 93 96 O2 Delivery Nasal Cannula Nasal Cannula Nasal Cannula Nasal Cannula O2 Flow Rate 2.0 2.0 2.0 2.0 01/24/17 01/24/17 01/24/17 01/24/17 20:25 20:37 21:10 23:01 Temp 97.7 97.7 Pulse 59 Resp 20 20 18 B/P 113/58 Pulse Ox 96 96 94 O2 Delivery Nasal Cannula Nasal Cannula Nasal Cannula O2 Flow Rate 2.0 2.0 2.0 01/25/17 01/25/17 01/25/17 01/25/17 03:05 04:42 05:15 07:00 Temp 97.7 97.3 97.7 97.3 Pulse 52 72 Resp 18 16 B/P 114/60 105/71 Pulse Ox 95 95 95 95 O2 Delivery Nasal Cannula Nasal Cannula Nasal Cannula Nasal Cannula O2 Flow Rate 2.0 2.0 2.0 2.0 01/25/17 01/25/17 01/25/17 01/25/17 07:33 07:36 08:00 10:01 Resp 20 Pulse Ox 87 87 O2 Delivery Room Air Room Air Nasal Cannula Nasal Cannula O2 Flow Rate 2.0 2.0 01/25/17 01/25/17 10:02 11:00 Temp 97.5 97.5 Pulse 72 69 Resp 16 B/P 105/71 133/67 Pulse Ox 91 O2 Delivery Nasal Cannula O2 Flow Rate 2.0 Intake and Output 01/24/17 01/24/17 01/25/17 14:59 22:59 06:59 Intake Total 120 ml 400 ml Balance 120 ml 400 ml NISSA NEVAREZ III DO Jan 25, 2017 12:13
[2017-01-25 15:00] VITALS: BP 117/45
[2017-01-25 19:00] VITALS: BP 140/76
[2017-01-25] MEDS: TOPIRAMATE 25 MG TABLET. PO SCH (21:01)
[2017-01-25] MEDS: GUAIFENESIN DM 200MG/20MG 10 ML SYRUP. PO PRN (21:01)
[2017-01-25] MEDS: MONTELUKAST SODIUM 10 MG TABLET. PO SCH (21:02)
[2017-01-25] MEDS: traZODone 50 MG TABLET. PO SCH (21:02)
[2017-01-25] MEDS: INSULIN DETEMIR 300 UNITS/3 ML INSULN.PEN. SQ SCH (21:20)
[2017-01-25 23:00] VITALS: BP 126/66
[2017-01-26] MEDS: FENTANYL PF 100 MCG/2 ML VIAL. IV PRN ×3 (00:52→08:39)
[2017-01-26 03:00] VITALS: BP 101/53
[2017-01-26 05:12] LABS: CREATININE 2.3 mg/dL (0.6-1.0); GFR 21.8; POTASSIUM 4.6 mmol/L (3.5-5.1)
[2017-01-26] MEDS: ALPRAZOLAM 1 MG TABLET PO PRN (05:30)
[2017-01-26 07:00] VITALS: BP 110/55
[2017-01-26 07:09] LABS: BASO % 1 % (0-3); EOS % 1 % (0-3); HEMATOCRIT 36.8 % (36.0-47.0); LYMPH # 1.6 x10^3/uL (1.0-4.8); LYMPH % 27 % (24-48); MEAN CORPUSCULAR HEMOGLOBIN 30 pg (25-35); MEAN CORPUSCULAR HGB CONC 33 g/dL (31-37); MEAN CORPUSCULAR VOLUME 91 fL (79-100); MONO % 6 % (0-9); NEUT % 65 % (31-73); PLATELET COUNT 94 x10^3/uL (140-400); RED BLOOD COUNT 4.06 x10^6/uL (3.50-5.40); RED CELL DISTRIBUTION WIDTH 14.3 % (11.5-14.5); WHITE BLOOD COUNT 5.9 x10^3/uL (4.0-11.0)
[2017-01-26] MEDS: IPRATRPIUM/ALBUTEROL 0.5/2.5MG 3 ML NEBU. NEB SCH ×2 (07:13→10:58)
[2017-01-26] MEDS: BUDESONIDE 0.5 MG/2 ML NEBU. NEB SCH (07:14)
[2017-01-26] MEDS: LIDOCAINE (700MG/PATCH) PATCH. TD SCH (08:35)
[2017-01-26] MEDS: ASPIRIN ENTERIC COATED 325 MG TABLET.DR. PO SCH (08:36)
[2017-01-26] MEDS: tiZANidine 4 MG TABLET. PO SCH (08:36)
[2017-01-26] MEDS: POTASSIUM CHLORIDE 20 MEQ TABLET.ER. PO SCH (08:36)
[2017-01-26] MEDS: buPROPion SR 150 MG TABLET.SA PO SCH (08:36)
[2017-01-26] MEDS: PREDNISONE 10 MG TABLET PO SCH (08:37)
[2017-01-26] MEDS: GUAIFENESIN ER 600 MG TABLET.ER PO SCH (08:37)
[2017-01-26] MEDS: SPIRONOLACTONE 25 MG TABLET PO SCH (08:37)
[2017-01-26] MEDS: FUROSEMIDE 40 MG TABLET. PO SCH (08:37)
[2017-01-26] MEDS: PANTOPRAZOLE 40 MG TABLET.DR. PO SCH (08:37)
[2017-01-26] MEDS: CARVEDILOL 6.25 MG TABLET. PO SCH (08:37)
[2017-01-26] MEDS: FENTANYL 50MCG/HR PATCH. TD SCH (08:38)
[2017-01-26] MEDS: INSULIN ASPART 300 UNITS/3 ML INSULN.PEN SQ SCH ×4 (08:43→12:00)
--- NOTE | 2017-01-26 09:41 | PDOC ---
PROGRESS NOTES Subjective Subjective No new complaints. Objective Objective Vital Signs Date Time Temp Pulse Resp B/P Pulse Ox O2 Delivery O2 Flow Rate FiO2 01/26/17 08:39 Nasal Cannula 2.0 01/26/17 08:37 60 110/55 01/26/17 07:15 98 01/26/17 07:00 97.3 16 97.3 Intake and Output 01/26/17 07:00 Output Total 0 ml Balance 0 ml Output Urine Total 0 ml # Voids 6 Physical Exam Physical Exam She is comfortable supine in bed and she is getting up and walking with physical therapy despite continued low back pain. Assessment Assessment Problems Medical Problems: (1) COPD (chronic obstructive pulmonary disease) Status: Acute (2) Dehydration Status: Acute (3) DM (diabetes mellitus) Status: Acute (4) Intractable back pain Status: Acute (5) Intractable low back pain Status: Acute Plan Plan of Snf with home health when medically stable. Comment Review of Relevant I have reviewed the following items kylee (where applicable) has been applied. Labs Laboratory Tests Test 01/24/17 11:38 01/24/17 16:34 01/24/17 20:41 01/25/17 03:40 Glucose (Fingerstick) 95mg/dL (70-99) 156mg/dL (70-99) 136mg/dL (70-99) White Blood Count 5.1x10^3/uL (4.0-11.0) Red Blood Count 3.95x10^6/uL (3.50-5.40) Hemoglobin 11.7g/dL (12.0-15.5) Hematocrit 35.7% (36.0-47.0) Mean Corpuscular Volume 90fL (79-100) Mean Corpuscular Hemoglobin 30pg (25-35) Mean Corpuscular Hemoglobin Concent 33g/dL (31-37) Red Cell Distribution Width 14.2% (11.5-14.5) Platelet Count 89x10^3/uL (140-400) Neutrophils (%) (Auto) 64% (31-73) Lymphocytes (%) (Auto) 27% (24-48) Monocytes (%) (Auto) 6% (0-9) Eosinophils (%) (Auto) 1% (0-3) Basophils (%) (Auto) 1% (0-3) Neutrophils # (Auto) 3.3x10^3uL (1.8-7.7) Lymphocytes # (Auto) 1.4x10^3/uL (1.0-4.8) Monocytes # (Auto) 0.3x10^3/uL (0.0-1.1) Eosinophils # (Auto) 0.1x10^3/uL (0.0-0.7) Basophils # (Auto) 0.1x10^3/uL (0.0-0.2) Sodium Level 141mmol/L (136-145) Potassium Level 4.3mmol/L (3.5-5.1) Chloride Level 102mmol/L (98-107) Carbon Dioxide Level 33mmol/L (21-32) Anion Gap 6 (6-14) Blood Urea Nitrogen 35mg/dL (7-20) Creatinine 2.0mg/dL (0.6-1.0) Estimated GFR (Cockcroft-Gault) 25.6 Glucose Level 132mg/dL (70-99) Calcium Level 7.8mg/dL (8.5-10.1) Test 01/25/17 07:46 01/25/17 11:16 01/25/17 16:25 01/25/17 20:46 Glucose (Fingerstick) 146mg/dL (70-99) 111mg/dL (70-99) 159mg/dL (70-99) 92mg/dL (70-99) Test 01/26/17 03:45 01/26/17 07:32 White Blood Count 5.9x10^3/uL (4.0-11.0) Red Blood Count 4.06x10^6/uL (3.50-5.40) Hemoglobin 12.0g/dL (12.0-15.5) Hematocrit 36.8% (36.0-47.0) Mean Corpuscular Volume 91fL (79-100) Mean Corpuscular Hemoglobin 30pg (25-35) Mean Corpuscular Hemoglobin Concent 33g/dL (31-37) Red Cell Distribution Width 14.3% (11.5-14.5) Platelet Count 94x10^3/uL (140-400) Neutrophils (%) (Auto) 65% (31-73) Lymphocytes (%) (Auto) 27% (24-48) Monocytes (%) (Auto) 6% (0-9) Eosinophils (%) (Auto) 1% (0-3) Basophils (%) (Auto) 1% (0-3) Neutrophils # (Auto) 3.9x10^3uL (1.8-7.7) Lymphocytes # (Auto) 1.6x10^3/uL (1.0-4.8) Monocytes # (Auto) 0.4x10^3/uL (0.0-1.1) Eosinophils # (Auto) 0.1x10^3/uL (0.0-0.7) Basophils # (Auto) 0.0x10^3/uL (0.0-0.2) Sodium Level 139mmol/L (136-145) Potassium Level 4.6mmol/L (3.5-5.1) Chloride Level 100mmol/L (98-107) Carbon Dioxide Level 33mmol/L (21-32) Anion Gap 6 (6-14) Blood Urea Nitrogen 39mg/dL (7-20) Creatinine 2.3mg/dL (0.6-1.0) Estimated GFR (Cockcroft-Gault) 21.8 Glucose Level 134mg/dL (70-99) Calcium Level 8.0mg/dL (8.5-10.1) Glucose (Fingerstick) 189mg/dL (70-99) Laboratory Tests Test 01/25/17 11:16 01/25/17 16:25 01/25/17 20:46 01/26/17 03:45 Glucose (Fingerstick) 111mg/dL (70-99) 159mg/dL (70-99) 92mg/dL (70-99) White Blood Count 5.9x10^3/uL (4.0-11.0) Red Blood Count 4.06x10^6/uL (3.50-5.40) Hemoglobin 12.0g/dL (12.0-15.5) Hematocrit 36.8% (36.0-47.0) Mean Corpuscular Volume 91fL (79-100) Mean Corpuscular Hemoglobin 30pg (25-35) Mean Corpuscular Hemoglobin Concent 33g/dL (31-37) Red Cell Distribution Width 14.3% (11.5-14.5) Platelet Count 94x10^3/uL (140-400) Neutrophils (%) (Auto) 65% (31-73) Lymphocytes (%) (Auto) 27% (24-48) Monocytes (%) (Auto) 6% (0-9) Eosinophils (%) (Auto) 1% (0-3) Basophils (%) (Auto) 1% (0-3) Neutrophils # (Auto) 3.9x10^3uL (1.8-7.7) Lymphocytes # (Auto) 1.6x10^3/uL (1.0-4.8) Monocytes # (Auto) 0.4x10^3/uL (0.0-1.1) Eosinophils # (Auto) 0.1x10^3/uL (0.0-0.7) Basophils # (Auto) 0.0x10^3/uL (0.0-0.2) Sodium Level 139mmol/L (136-145) Potassium Level 4.6mmol/L (3.5-5.1) Chloride Level 100mmol/L (98-107) Carbon Dioxide Level 33mmol/L (21-32) Anion Gap 6 (6-14) Blood Urea Nitrogen 39mg/dL (7-20) Creatinine 2.3mg/dL (0.6-1.0) Estimated GFR (Cockcroft-Gault) 21.8 Glucose Level 134mg/dL (70-99) Calcium Level 8.0mg/dL (8.5-10.1) Test 01/26/17 07:32 Glucose (Fingerstick) 189mg/dL (70-99) Microbiology 01/22/17 Blood Culture - Preliminary, Resulted NO GROWTH AFTER 4 DAYS Medications Current Medications Sodium Chloride (Iv Sodium Chloride 0.9% 1000ml Bag) 1,000 ml @ 1,000 mls/hr Q1H IV Last administered on 01/21/17 20:07; Start 01/21/17 at 19:19; Stop at 20:18; Status DC Albuterol/ Ipratropium (Duoneb) 3 ml 1X ONCE NEB Last administered on 19:32; Start 01/21/17 at 19:30; Stop 01/21/17 at 19:31; Status DC Fentanyl Citrate (Fentanyl 2ml Vial) 50 mcg PRN Q15MIN PRN IV PAIN GREATER THAN 3/10 Last administered on 01/22/17 09:10; Start 01/21/17 at 19:30; Stop 01/22 at 13:40; Status DC Ondansetron HCl (Zofran) 4 mg PRN Q8HRS PRN IV NAUSEA/VOMITING; Start 01/21/17 at 21:00; Stop 01/22/17 at 20:59; Status DC Fentanyl Citrate 50 mcg 50 mcg PRN Q2HR PRN IV PAIN Last administered on 20:12; Start 01/21/17 at 21:00; Stop 01/22/17 at 20:59; Status DC Sodium Chloride (Iv Sodium Chloride 0.9% 1000ml Bag) 1,000 ml @ 100 mls/hr Q10H IV Last administered on 01/22/17 07:22; Start 01/21/17 at 20:55; Stop at 20:54; Status DC Acetaminophen (Tylenol) 650 mg PRN Q4HRS PRN PO FEVER; Start 01/21/17 at 21:00; Stop 01/22/17 at 20:59; Status DC Lidocaine (Lidoderm) 1 patch DAILY TD Last administered on 01/26/17 08:35; Start 01/21/17 at 22:45 Aspirin (Children'S Aspirin) 81 mg DAILY PO ; Start 01/22/17 at 09:00; Status Cancel Bupropion HCl (Wellbutrin Sr) 150 mg BID PO Last administered on 01/26/17 08: 36; Start 01/22/17 at 09:00 Carvedilol (Coreg) 6.25 mg BIDWMEALS PO Last administered on 01/26/17 08:37; Start 01/22/17 at 08:00 Furosemide (Lasix) 40 mg DAILY PO Last administered on 01/26/17 08:37; Start 01/22/17 at 09:00 Insulin Aspart (Novolog) 10 units TIDAC SQ Last administered on 01/26/17 08:43 ; Start 01/22/17 at 07:30 Insulin Detemir (Levemir) 18 units QHS SQ Last administered on 01/25/17 21:20 ; Start 01/21/17 at 22:45 Montelukast Sodium (Singulair) 10 mg HS PO Last administered on 01/25/17 21:02 ; Start 01/21/17 at 22:45 Nystatin (Nystop) 1 omid PRN BID PRN TP Yeast infection Last administered on 08:36; Start 01/21/17 at 22:30 Pantoprazole Sodium (Protonix) 40 mg DAILYAC PO Last administered on 01/26/17 08:37; Start 01/22/17 at 07:30 Potassium Chloride (Klor-Con) 40 meq DAILY PO ; Start 01/22/17 at 09:00; Stop 01/22/17 at 09:00; Status DC Prednisone (Prednisone) 10 mg DAILY PO Last administered on 01/26/17 08:37; Start 01/22/17 at 09:00 Spironolactone (Aldactone) 25 mg DAILY PO Last administered on 01/26/17 08:37 ; Start 01/22/17 at 09:00 Tizanidine HCl (Zanaflex) 4 mg BID PO Last administered on 01/26/17 08:36; Start 01/22/17 at 09:00 Topiramate (Topamax) 25 mg HS PO Last administered on 01/25/17 21:01; Start at 22:45 Tramadol HCl (Ultram) 50 mg PRN Q6HRS PRN PO PAIN Last administered on 02:44; Start 01/21/17 at 22:30 Alprazolam (Xanax) 1 mg PRN Q4HRS PRN PO ANXIETY / AGITATION Last administered on 01/26/17 05:30; Start 01/21/17 at 22:30 Non-Formulary Medication 2 inh QID IH ; Start 01/22/17 at 09:00; Status UNV Trazodone HCl (Desyrel) 150 mg QHS PO Last administered on 01/25/17 21:02; Start 01/21/17 at 22:45 Aspirin (Ecotrin) 325 mg DAILYWBKFT PO Last administered on 01/26/17 08:36; Start 01/22/17 at 08:00 Albuterol Sulfate (Ventolin Neb Soln) 2.5 mg PRN Q4HRS PRN NEB dyspnea or wheeze Last administered on 01/21/17 23:58; Start 01/21/17 at 22:30 Budesonide (Pulmicort) 0.5 mg RTBID NEB Last administered on 01/26/17 07:14; Start 01/22/17 at 08:00 Budesonide (Pulmicort) 0.5 mg 1X ONCE NEB Last administered on 01/21/17 23:59 ; Start 01/21/17 at 22:45; Stop 01/21/17 at 22:46; Status DC Potassium Chloride (Klor-Con) 20 meq DAILY PO Last administered on 01/26/17 08 :36; Start 01/22/17 at 09:00 Albuterol/ Ipratropium (Duoneb) 3 ml RTQID NEB Last administered on 01/26/17 07:13; Start 01/22/17 at 08:00 Insulin Aspart (Novolog) 0-9 UNITS TIDWMEALS SQ Last administered on 01/26/17 08:44; Start 01/22/17 at 12:00 Dextrose (Dextrose 50%-Water Syringe) 12.5 gm PRN Q15MIN PRN IV SEE COMMENTS; Start 01/22/17 at 09:15 Nicotine (Nicoderm Cq 21mg) 1 patch PRN DAILY PRN TD SMOKING CESSATION; Start 01/22/17 at 13:00 Guaifenesin (Mucinex) 600 mg BID PO Last administered on 01/26/17 08:37; Start 01/22/17 at 13:00 Fentanyl Citrate (Fentanyl 2ml Vial) 50 mcg PRN Q2HR PRN IV PAIN Last administered on 01/26/17 08:39; Start 01/23/17 at 08:00 Fentanyl (Duragesic 50mcg/ Hr Patch) 1 patch Q3DAYS TD Last administered on 08:38; Start 01/23/17 at 13:30 Guaifenesin (Robitussin Dm) 10 ml PRN Q6HRS PRN PO COUGH Last administered on 21:01; Start 01/23/17 at 20:15 Active Scripts Active Prednisone 10 Mg Tablet 10 Mg PO UD Take 3 tablets by mouth twice a day for 3 days, then take 2 tablets by mouth twice a day for 3 days, then take 1 tablet by mouth twice a day for 3 days, then take 1 tablet by mouth daily x 3 days, then stop. Levemir Flextouch (Insulin Detemir) 100 Unit/1 Ml Insuln.pen 18 Units SQ QHS Novolog Flexpen (Insulin Aspart) 100 Unit/1 Ml Insuln.pen 10 Units SQ TIDAC Topamax (Topiramate) 25 Mg Tablet 25 Mg PO HS Combivent Respimat Inhal (Ipratropium/Albuterol Sulfate) 4 Gm Aer.w.adap 2 Inh IH QID Lasix (Furosemide) 40 Mg Tablet 1 Tab PO DAILY Ultram (Tramadol Hcl) 50 Mg Tablet 50 Mg PO PRN Q6HRS PRN Aldactone (Spironolactone) 25 Mg Tablet 25 Mg PO DAILY Klor-Con M20 (Potassium Chloride) 20 Meq Tablet.er 40 Meq PO DAILY Nystop (Nystatin) 1 Omid Omid 1 Omid TP BID PRN [Aspirin] 325 MG Tablet.dr 325 Mg PO DAILYWBKFT Reported Wellbutrin Sr (Bupropion Hcl) 150 Mg Tablet.er 1 Tab PO BID Aspirin 81 Mg Tab.chew 1 Tab PO DAILY Montelukast Sodium Tablet (Montelukast Sodium) 10 Mg Tablet 10 Mg PO HS Tizanidine Hcl 4 Mg Tablet 1 Tab PO BID Carvedilol 6.25 Mg Tablet 6.25 Mg PO BIDWMEALS Pantoprazole Sodium 40 Mg Tablet.dr 40 Mg PO DAILY Trazodone Hcl 150 Mg Tablet 150 Mg PO QHS Alprazolam 1 Mg Tab.rapdis 1 Mg PO Q4HRS PRN Vitals/I & O Vital Sign - Last 24 Hours 01/25/17 01/25/17 01/25/17 01/25/17 10:01 10:02 11:00 11:10 Temp 97.5 97.5 Pulse 72 69 Resp 20 16 B/P 105/71 133/67 Pulse Ox 91 94 O2 Delivery Nasal Cannula Nasal Cannula Nasal Cannula O2 Flow Rate 2.0 2.0 2.0 01/25/17 01/25/17 01/25/17 01/25/17 12:31 15:00 15:37 17:00 Temp 97.4 97.4 Pulse 64 64 Resp 20 16 B/P 117/45 117/45 Pulse Ox 92 94 O2 Delivery Nasal Cannula Nasal Cannula Nasal Cannula O2 Flow Rate 2.0 2.0 2.0 01/25/17 01/25/17 01/25/17 01/25/17 18:00 19:00 20:00 20:35 Temp 97.4 97.4 Pulse 59 Resp 20 18 B/P 140/76 Pulse Ox 92 97 O2 Delivery Nasal Cannula Nasal Cannula Nasal Cannula O2 Flow Rate 2.0 2.0 2.0 01/25/17 01/25/17 01/25/17 01/26/17 20:39 21:03 23:00 00:52 Temp 97.7 97.7 Pulse 53 Resp 18 20 B/P 126/66 Pulse Ox 97 97 93 93 O2 Delivery Nasal Cannula Nasal Cannula Nasal Cannula Nasal Cannula O2 Flow Rate 2.0 2.0 2.0 2.0 01/26/17 01/26/17 01/26/17 01/26/17 03:00 05:30 06:00 07:00 Temp 97.3 97.3 97.3 97.3 Pulse 51 60 Resp 18 16 B/P 101/53 110/55 Pulse Ox 96 96 96 94 O2 Delivery Nasal Cannula Room Air Nasal Cannula Nasal Cannula O2 Flow Rate 2.0 2.0 2.0 01/26/17 01/26/17 01/26/17 01/26/17 07:15 08:37 08:38 08:39 Pulse 60 B/P 110/55 Pulse Ox 98 O2 Delivery Nasal Cannula Nasal Cannula Nasal Cannula O2 Flow Rate 2.0 2.0 2.0 Intake and Output 01/25/17 01/25/17 01/26/17 15:00 23:00 07:00 Output Total 0 ml Balance 0 ml KIERA MOREIRA MD Jan 26, 2017 09:41
[2017-01-26 11:00] VITALS: BP 102/59
--- NOTE | 2017-01-26 11:43 | PDOC2 ---
CONSULT Date of Consult Date of Consult DATE: 01/26/17 TIME: 11:38 Reason for Consult Reason for Consult: RENAL FAILURE Referring Physician Referring Physician: INGRID Identification/Chief Complaint Chief Complaint BACK PAIN Source Source: Chart review History of Present Illness Reason for Visit: THIS IS A 56 YR OLD WITH BACK PAIN RELATED TO SPINAL STENOSIS. SHE HAS A CR OF 2.3. SHE HAS NOT BEEN EATING. SHE DOES NOT HAVE A HX OF KIDNEY OR BLADDER SURGERIES HEMATURIA DYSURIA OR FREQUENCY NOTED. SHE DOES HAVE CKD STAGE 3 WITH A CR OF 1.5-2.0 AT BASELINE Past Medical History Cardiovascular: CHF, HTN Pulmonary: Asthma, COPD CENTRAL NERVOUS SYSTEM: Other GI: GERD Heme/Onc: No pertinent hx Hepatobiliary: No pertinent hx Psych: Anxiety, Depression Musculoskeletal: Osteoarthritis, Other Rheumatologic: No pertinent hx Infectious disease: No pertinent hx Renal/: Chronic renal insuff, Urinary Incontinence Endocrine: No pertinent hx Past Surgical History Past Surgical History: Tonsillectomy, Hysterectomy, Other Family History Family History: Diabetes Social History Quit ALCOHOL: none Drugs: None Lives: with Family Domestic Violence: Neg Current Problem List Problem List Problems Medical Problems: (1) COPD (chronic obstructive pulmonary disease) Status: Acute (2) Dehydration Status: Acute (3) DM (diabetes mellitus) Status: Acute (4) Intractable back pain Status: Acute (5) Intractable low back pain Status: Acute Current Medications Current Medications Current Medications Sodium Chloride (Iv Sodium Chloride 0.9% 1000ml Bag) 1,000 ml @ 1,000 mls/hr Q1H IV Last administered on 01/21/17 20:07; Start 01/21/17 at 19:19; Stop at 20:18; Status DC Albuterol/ Ipratropium (Duoneb) 3 ml 1X ONCE NEB Last administered on 19:32; Start 01/21/17 at 19:30; Stop 01/21/17 at 19:31; Status DC Fentanyl Citrate (Fentanyl 2ml Vial) 50 mcg PRN Q15MIN PRN IV PAIN GREATER THAN 3/10 Last administered on 01/22/17 09:10; Start 01/21/17 at 19:30; Stop 01/22 at 13:40; Status DC Ondansetron HCl (Zofran) 4 mg PRN Q8HRS PRN IV NAUSEA/VOMITING; Start 01/21/17 at 21:00; Stop 01/22/17 at 20:59; Status DC Fentanyl Citrate 50 mcg 50 mcg PRN Q2HR PRN IV PAIN Last administered on 20:12; Start 01/21/17 at 21:00; Stop 01/22/17 at 20:59; Status DC Sodium Chloride (Iv Sodium Chloride 0.9% 1000ml Bag) 1,000 ml @ 100 mls/hr Q10H IV Last administered on 01/22/17 07:22; Start 01/21/17 at 20:55; Stop at 20:54; Status DC Acetaminophen (Tylenol) 650 mg PRN Q4HRS PRN PO FEVER; Start 01/21/17 at 21:00; Stop 01/22/17 at 20:59; Status DC Lidocaine (Lidoderm) 1 patch DAILY TD Last administered on 01/26/17 08:35; Start 01/21/17 at 22:45 Aspirin (Children'S Aspirin) 81 mg DAILY PO ; Start 01/22/17 at 09:00; Status Cancel Bupropion HCl (Wellbutrin Sr) 150 mg BID PO Last administered on 01/26/17 08: 36; Start 01/22/17 at 09:00 Carvedilol (Coreg) 6.25 mg BIDWMEALS PO Last administered on 01/26/17 08:37; Start 01/22/17 at 08:00 Furosemide (Lasix) 40 mg DAILY PO Last administered on 01/26/17 08:37; Start 01/22/17 at 09:00 Insulin Aspart (Novolog) 10 units TIDAC SQ Last administered on 01/26/17 08:43 ; Start 01/22/17 at 07:30 Insulin Detemir (Levemir) 18 units QHS SQ Last administered on 01/25/17 21:20 ; Start 01/21/17 at 22:45 Montelukast Sodium (Singulair) 10 mg HS PO Last administered on 01/25/17 21:02 ; Start 01/21/17 at 22:45 Nystatin (Nystop) 1 omid PRN BID PRN TP Yeast infection Last administered on 08:36; Start 01/21/17 at 22:30 Pantoprazole Sodium (Protonix) 40 mg DAILYAC PO Last administered on 01/26/17 08:37; Start 01/22/17 at 07:30 Potassium Chloride (Klor-Con) 40 meq DAILY PO ; Start 01/22/17 at 09:00; Stop 01/22/17 at 09:00; Status DC Prednisone (Prednisone) 10 mg DAILY PO Last administered on 01/26/17 08:37; Start 01/22/17 at 09:00 Spironolactone (Aldactone) 25 mg DAILY PO Last administered on 01/26/17 08:37 ; Start 01/22/17 at 09:00 Tizanidine HCl (Zanaflex) 4 mg BID PO Last administered on 01/26/17 08:36; Start 01/22/17 at 09:00 Topiramate (Topamax) 25 mg HS PO Last administered on 01/25/17 21:01; Start at 22:45 Tramadol HCl (Ultram) 50 mg PRN Q6HRS PRN PO PAIN Last administered on 02:44; Start 01/21/17 at 22:30 Alprazolam (Xanax) 1 mg PRN Q4HRS PRN PO ANXIETY / AGITATION Last administered on 01/26/17 05:30; Start 01/21/17 at 22:30 Non-Formulary Medication 2 inh QID IH ; Start 01/22/17 at 09:00; Status UNV Trazodone HCl (Desyrel) 150 mg QHS PO Last administered on 01/25/17 21:02; Start 01/21/17 at 22:45 Aspirin (Ecotrin) 325 mg DAILYWBKFT PO Last administered on 01/26/17 08:36; Start 01/22/17 at 08:00 Albuterol Sulfate (Ventolin Neb Soln) 2.5 mg PRN Q4HRS PRN NEB dyspnea or wheeze Last administered on 01/21/17 23:58; Start 01/21/17 at 22:30 Budesonide (Pulmicort) 0.5 mg RTBID NEB Last administered on 01/26/17 07:14; Start 01/22/17 at 08:00 Budesonide (Pulmicort) 0.5 mg 1X ONCE NEB Last administered on 01/21/17 23:59 ; Start 01/21/17 at 22:45; Stop 01/21/17 at 22:46; Status DC Potassium Chloride (Klor-Con) 20 meq DAILY PO Last administered on 01/26/17 08 :36; Start 01/22/17 at 09:00 Albuterol/ Ipratropium (Duoneb) 3 ml RTQID NEB Last administered on 01/26/17 10:58; Start 01/22/17 at 08:00 Insulin Aspart (Novolog) 0-9 UNITS TIDWMEALS SQ Last administered on 01/26/17 08:44; Start 01/22/17 at 12:00 Dextrose (Dextrose 50%-Water Syringe) 12.5 gm PRN Q15MIN PRN IV SEE COMMENTS; Start 01/22/17 at 09:15 Nicotine (Nicoderm Cq 21mg) 1 patch PRN DAILY PRN TD SMOKING CESSATION; Start 01/22/17 at 13:00 Guaifenesin (Mucinex) 600 mg BID PO Last administered on 01/26/17 08:37; Start 01/22/17 at 13:00 Fentanyl Citrate (Fentanyl 2ml Vial) 50 mcg PRN Q2HR PRN IV PAIN Last administered on 01/26/17 08:39; Start 01/23/17 at 08:00 Fentanyl (Duragesic 50mcg/ Hr Patch) 1 patch Q3DAYS TD Last administered on 08:38; Start 01/23/17 at 13:30 Guaifenesin (Robitussin Dm) 10 ml PRN Q6HRS PRN PO COUGH Last administered on 21:01; Start 01/23/17 at 20:15 Active Scripts Active Prednisone 10 Mg Tablet 10 Mg PO UD Take 3 tablets by mouth twice a day for 3 days, then take 2 tablets by mouth twice a day for 3 days, then take 1 tablet by mouth twice a day for 3 days, then take 1 tablet by mouth daily x 3 days, then stop. Levemir Flextouch (Insulin Detemir) 100 Unit/1 Ml Insuln.pen 18 Units SQ QHS Novolog Flexpen (Insulin Aspart) 100 Unit/1 Ml Insuln.pen 10 Units SQ TIDAC Topamax (Topiramate) 25 Mg Tablet 25 Mg PO HS Combivent Respimat Inhal (Ipratropium/Albuterol Sulfate) 4 Gm Aer.w.adap 2 Inh IH QID Lasix (Furosemide) 40 Mg Tablet 1 Tab PO DAILY Ultram (Tramadol Hcl) 50 Mg Tablet 50 Mg PO PRN Q6HRS PRN Aldactone (Spironolactone) 25 Mg Tablet 25 Mg PO DAILY Klor-Con M20 (Potassium Chloride) 20 Meq Tablet.er 40 Meq PO DAILY Nystop (Nystatin) 1 Omid Omid 1 Omid TP BID PRN [Aspirin] 325 MG Tablet.dr 325 Mg PO DAILYWBKFT Reported Wellbutrin Sr (Bupropion Hcl) 150 Mg Tablet.er 1 Tab PO BID Aspirin 81 Mg Tab.chew 1 Tab PO DAILY Montelukast Sodium Tablet (Montelukast Sodium) 10 Mg Tablet 10 Mg PO HS Tizanidine Hcl 4 Mg Tablet 1 Tab PO BID Carvedilol 6.25 Mg Tablet 6.25 Mg PO BIDWMEALS Pantoprazole Sodium 40 Mg Tablet.dr 40 Mg PO DAILY Trazodone Hcl 150 Mg Tablet 150 Mg PO QHS Alprazolam 1 Mg Tab.rapdis 1 Mg PO Q4HRS PRN Allergies Allergies: Coded Allergies: Fish Containing Products (Verified Allergy, Intermediate, Itching, ) allergic to fish itching Penicillins (Verified Allergy, Intermediate, 02/04/14) Sulfa (Sulfonamide Antibiotics) (Verified Allergy, Intermediate, 02/04/14) codeine (Verified Allergy, Intermediate, 02/15/16) Has tolerated oxycodone morphine (Verified Allergy, Intermediate, Hives, 02/15/16) Has tolerated oxycodone ROS General: YES: Appetite, Fatigue, Malaise PSYCHOLOGICAL ROS: YES: Depression Eyes: Yes Decreased vision HEENT: YES: Heacaches Gastrointestinal: Yes Constipation, Yes Nausea Genitourinary: YES Other Musculoskeletal: Yes Muscular Weakness Neurological: Yes Weakness Skin: Yes Dry Skin Physical Exam General: Alert, Oriented X3, Cooperative, No acute distress HEENT: Atraumatic, PERRLA Lungs: Clear to auscultation Heart: Regular rate, Normal S1, Normal S2 Abdomen: Normal bowel sounds, Soft Neuro: Normal speech, Cranial nerves 3-12 NL Psych/Mental Status: Mental status NL, Mood NL MUSCULOSKELETAL: No deformity Vitals VITALS Vital Signs Date Time Temp Pulse Resp B/P Pulse Ox O2 Delivery O2 Flow Rate FiO2 01/26/17 11:00 Nasal Cannula 2.0 01/26/17 08:37 60 110/55 01/26/17 07:15 98 01/26/17 07:00 97.3 16 97.3 Labs Labs Laboratory Tests Test 01/24/17 16:34 01/24/17 20:41 01/25/17 03:40 01/25/17 07:46 Glucose (Fingerstick) 156mg/dL (70-99) 136mg/dL (70-99) 146mg/dL (70-99) White Blood Count 5.1x10^3/uL (4.0-11.0) Red Blood Count 3.95x10^6/uL (3.50-5.40) Hemoglobin 11.7g/dL (12.0-15.5) Hematocrit 35.7% (36.0-47.0) Mean Corpuscular Volume 90fL (79-100) Mean Corpuscular Hemoglobin 30pg (25-35) Mean Corpuscular Hemoglobin Concent 33g/dL (31-37) Red Cell Distribution Width 14.2% (11.5-14.5) Platelet Count 89x10^3/uL (140-400) Neutrophils (%) (Auto) 64% (31-73) Lymphocytes (%) (Auto) 27% (24-48) Monocytes (%) (Auto) 6% (0-9) Eosinophils (%) (Auto) 1% (0-3) Basophils (%) (Auto) 1% (0-3) Neutrophils # (Auto) 3.3x10^3uL (1.8-7.7) Lymphocytes # (Auto) 1.4x10^3/uL (1.0-4.8) Monocytes # (Auto) 0.3x10^3/uL (0.0-1.1) Eosinophils # (Auto) 0.1x10^3/uL (0.0-0.7) Basophils # (Auto) 0.1x10^3/uL (0.0-0.2) Sodium Level 141mmol/L (136-145) Potassium Level 4.3mmol/L (3.5-5.1) Chloride Level 102mmol/L (98-107) Carbon Dioxide Level 33mmol/L (21-32) Anion Gap 6 (6-14) Blood Urea Nitrogen 35mg/dL (7-20) Creatinine 2.0mg/dL (0.6-1.0) Estimated GFR (Cockcroft-Gault) 25.6 Glucose Level 132mg/dL (70-99) Calcium Level 7.8mg/dL (8.5-10.1) Test 01/25/17 11:16 01/25/17 16:25 01/25/17 20:46 01/26/17 03:45 Glucose (Fingerstick) 111mg/dL (70-99) 159mg/dL (70-99) 92mg/dL (70-99) White Blood Count 5.9x10^3/uL (4.0-11.0) Red Blood Count 4.06x10^6/uL (3.50-5.40) Hemoglobin 12.0g/dL (12.0-15.5) Hematocrit 36.8% (36.0-47.0) Mean Corpuscular Volume 91fL (79-100) Mean Corpuscular Hemoglobin 30pg (25-35) Mean Corpuscular Hemoglobin Concent 33g/dL (31-37) Red Cell Distribution Width 14.3% (11.5-14.5) Platelet Count 94x10^3/uL (140-400) Neutrophils (%) (Auto) 65% (31-73) Lymphocytes (%) (Auto) 27% (24-48) Monocytes (%) (Auto) 6% (0-9) Eosinophils (%) (Auto) 1% (0-3) Basophils (%) (Auto) 1% (0-3) Neutrophils # (Auto) 3.9x10^3uL (1.8-7.7) Lymphocytes # (Auto) 1.6x10^3/uL (1.0-4.8) Monocytes # (Auto) 0.4x10^3/uL (0.0-1.1) Eosinophils # (Auto) 0.1x10^3/uL (0.0-0.7) Basophils # (Auto) 0.0x10^3/uL (0.0-0.2) Sodium Level 139mmol/L (136-145) Potassium Level 4.6mmol/L (3.5-5.1) Chloride Level 100mmol/L (98-107) Carbon Dioxide Level 33mmol/L (21-32) Anion Gap 6 (6-14) Blood Urea Nitrogen 39mg/dL (7-20) Creatinine 2.3mg/dL (0.6-1.0) Estimated GFR (Cockcroft-Gault) 21.8 Glucose Level 134mg/dL (70-99) Calcium Level 8.0mg/dL (8.5-10.1) Test 01/26/17 07:32 Glucose (Fingerstick) 189mg/dL (70-99) Laboratory Tests Test 01/25/17 16:25 01/25/17 20:46 01/26/17 03:45 01/26/17 07:32 Glucose (Fingerstick) 159mg/dL (70-99) 92mg/dL (70-99) 189mg/dL (70-99) White Blood Count 5.9x10^3/uL (4.0-11.0) Red Blood Count 4.06x10^6/uL (3.50-5.40) Hemoglobin 12.0g/dL (12.0-15.5) Hematocrit 36.8% (36.0-47.0) Mean Corpuscular Volume 91fL (79-100) Mean Corpuscular Hemoglobin 30pg (25-35) Mean Corpuscular Hemoglobin Concent 33g/dL (31-37) Red Cell Distribution Width 14.3% (11.5-14.5) Platelet Count 94x10^3/uL (140-400) Neutrophils (%) (Auto) 65% (31-73) Lymphocytes (%) (Auto) 27% (24-48) Monocytes (%) (Auto) 6% (0-9) Eosinophils (%) (Auto) 1% (0-3) Basophils (%) (Auto) 1% (0-3) Neutrophils # (Auto) 3.9x10^3uL (1.8-7.7) Lymphocytes # (Auto) 1.6x10^3/uL (1.0-4.8) Monocytes # (Auto) 0.4x10^3/uL (0.0-1.1) Eosinophils # (Auto) 0.1x10^3/uL (0.0-0.7) Basophils # (Auto) 0.0x10^3/uL (0.0-0.2) Sodium Level 139mmol/L (136-145) Potassium Level 4.6mmol/L (3.5-5.1) Chloride Level 100mmol/L (98-107) Carbon Dioxide Level 33mmol/L (21-32) Anion Gap 6 (6-14) Blood Urea Nitrogen 39mg/dL (7-20) Creatinine 2.3mg/dL (0.6-1.0) Estimated GFR (Cockcroft-Gault) 21.8 Glucose Level 134mg/dL (70-99) Calcium Level 8.0mg/dL (8.5-10.1) Assessment/Plan Assessment/Plan IMP MUKESH WITH CR OF 2.3 CKD STAGE 3 WITH CR OF 1.5-2.0 BACK PAIN LUMBAR SPINAL STENOSIS DEHYDRATION DM II HTN PLAN IVF'S FOR NOW ENC PO INTAKE ZHANG SCHUMACHER MD Jan 26, 2017 11:43
[2017-01-26] MEDS ORDERED: IV NORMAL SALINE 1000ML BAG 1,000 ML IV SCH (11:45)
--- NOTE | 2017-01-26 14:30 | PDOC ---
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 No acute events overnight. Patient eating breakfast without difficulty. Patient is off O2 NC without any respiratory difficulty. patient was able to walk and work with physical therapy. She is eager to go home. d/w nurse about plan of care. Vitals Vitals Vital Signs Date Time Temp Pulse Resp B/P Pulse Ox O2 Delivery O2 Flow Rate FiO2 01/26/17 12:42 Nasal Cannula 2.0 01/26/17 11:00 97.5 68 16 102/59 96 97.5 Physical Exam General: Alert, Oriented X3, Cooperative, No acute distress Heart: Regular rate, Normal S1, Normal S2 Lungs: Clear, Other (diminished breath sounds. negative chest retractions ) Abdomen: Normal bowel sounds, Soft Extremities: No clubbing, No edema, Normal pulses, Other (neurovascularly intact. ) Skin: No breakdown, Other (discoloration to nailbed of the L third digit; possible paronychia) Labs LABS Laboratory Tests Test 01/25/17 16:25 01/25/17 20:46 01/26/17 03:45 01/26/17 07:32 Glucose (Fingerstick) 159mg/dL (70-99) 92mg/dL (70-99) 189mg/dL (70-99) White Blood Count 5.9x10^3/uL (4.0-11.0) Red Blood Count 4.06x10^6/uL (3.50-5.40) Hemoglobin 12.0g/dL (12.0-15.5) Hematocrit 36.8% (36.0-47.0) Mean Corpuscular Volume 91fL (79-100) Mean Corpuscular Hemoglobin 30pg (25-35) Mean Corpuscular Hemoglobin Concent 33g/dL (31-37) Red Cell Distribution Width 14.3% (11.5-14.5) Platelet Count 94x10^3/uL (140-400) Neutrophils (%) (Auto) 65% (31-73) Lymphocytes (%) (Auto) 27% (24-48) Monocytes (%) (Auto) 6% (0-9) Eosinophils (%) (Auto) 1% (0-3) Basophils (%) (Auto) 1% (0-3) Neutrophils # (Auto) 3.9x10^3uL (1.8-7.7) Lymphocytes # (Auto) 1.6x10^3/uL (1.0-4.8) Monocytes # (Auto) 0.4x10^3/uL (0.0-1.1) Eosinophils # (Auto) 0.1x10^3/uL (0.0-0.7) Basophils # (Auto) 0.0x10^3/uL (0.0-0.2) Sodium Level 139mmol/L (136-145) Potassium Level 4.6mmol/L (3.5-5.1) Chloride Level 100mmol/L (98-107) Carbon Dioxide Level 33mmol/L (21-32) Anion Gap 6 (6-14) Blood Urea Nitrogen 39mg/dL (7-20) Creatinine 2.3mg/dL (0.6-1.0) Estimated GFR (Cockcroft-Gault) 21.8 Glucose Level 134mg/dL (70-99) Calcium Level 8.0mg/dL (8.5-10.1) Test 01/26/17 11:37 Glucose (Fingerstick) 97mg/dL (70-99) Review of Systems Review of Systems (+) acute on chronic back pain (+) sob, improved Denies chest pain, numbness/tingling, abdominal pain, n/v/d, or fever/chills. 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 5.) f/u with pcp in 1-2 weeks; rx of ciprofloxacin for possible paronychia vs other infection to third digit Problems: Comment Review of Relevant I have reviewed the following items kylee (where applicable) has been applied. Labs Laboratory Tests Test 01/24/17 16:34 01/24/17 20:41 01/25/17 03:40 01/25/17 07:46 Glucose (Fingerstick) 156mg/dL (70-99) 136mg/dL (70-99) 146mg/dL (70-99) White Blood Count 5.1x10^3/uL (4.0-11.0) Red Blood Count 3.95x10^6/uL (3.50-5.40) Hemoglobin 11.7g/dL (12.0-15.5) Hematocrit 35.7% (36.0-47.0) Mean Corpuscular Volume 90fL (79-100) Mean Corpuscular Hemoglobin 30pg (25-35) Mean Corpuscular Hemoglobin Concent 33g/dL (31-37) Red Cell Distribution Width 14.2% (11.5-14.5) Platelet Count 89x10^3/uL (140-400) Neutrophils (%) (Auto) 64% (31-73) Lymphocytes (%) (Auto) 27% (24-48) Monocytes (%) (Auto) 6% (0-9) Eosinophils (%) (Auto) 1% (0-3) Basophils (%) (Auto) 1% (0-3) Neutrophils # (Auto) 3.3x10^3uL (1.8-7.7) Lymphocytes # (Auto) 1.4x10^3/uL (1.0-4.8) Monocytes # (Auto) 0.3x10^3/uL (0.0-1.1) Eosinophils # (Auto) 0.1x10^3/uL (0.0-0.7) Basophils # (Auto) 0.1x10^3/uL (0.0-0.2) Sodium Level 141mmol/L (136-145) Potassium Level 4.3mmol/L (3.5-5.1) Chloride Level 102mmol/L (98-107) Carbon Dioxide Level 33mmol/L (21-32) Anion Gap 6 (6-14) Blood Urea Nitrogen 35mg/dL (7-20) Creatinine 2.0mg/dL (0.6-1.0) Estimated GFR (Cockcroft-Gault) 25.6 Glucose Level 132mg/dL (70-99) Calcium Level 7.8mg/dL (8.5-10.1) Test 01/25/17 11:16 01/25/17 16:25 01/25/17 20:46 01/26/17 03:45 Glucose (Fingerstick) 111mg/dL (70-99) 159mg/dL (70-99) 92mg/dL (70-99) White Blood Count 5.9x10^3/uL (4.0-11.0) Red Blood Count 4.06x10^6/uL (3.50-5.40) Hemoglobin 12.0g/dL (12.0-15.5) Hematocrit 36.8% (36.0-47.0) Mean Corpuscular Volume 91fL (79-100) Mean Corpuscular Hemoglobin 30pg (25-35) Mean Corpuscular Hemoglobin Concent 33g/dL (31-37) Red Cell Distribution Width 14.3% (11.5-14.5) Platelet Count 94x10^3/uL (140-400) Neutrophils (%) (Auto) 65% (31-73) Lymphocytes (%) (Auto) 27% (24-48) Monocytes (%) (Auto) 6% (0-9) Eosinophils (%) (Auto) 1% (0-3) Basophils (%) (Auto) 1% (0-3) Neutrophils # (Auto) 3.9x10^3uL (1.8-7.7) Lymphocytes # (Auto) 1.6x10^3/uL (1.0-4.8) Monocytes # (Auto) 0.4x10^3/uL (0.0-1.1) Eosinophils # (Auto) 0.1x10^3/uL (0.0-0.7) Basophils # (Auto) 0.0x10^3/uL (0.0-0.2) Sodium Level 139mmol/L (136-145) Potassium Level 4.6mmol/L (3.5-5.1) Chloride Level 100mmol/L (98-107) Carbon Dioxide Level 33mmol/L (21-32) Anion Gap 6 (6-14) Blood Urea Nitrogen 39mg/dL (7-20) Creatinine 2.3mg/dL (0.6-1.0) Estimated GFR (Cockcroft-Gault) 21.8 Glucose Level 134mg/dL (70-99) Calcium Level 8.0mg/dL (8.5-10.1) Test 01/26/17 07:32 01/26/17 11:37 Glucose (Fingerstick) 189mg/dL (70-99) 97mg/dL (70-99) Laboratory Tests Test 01/25/17 16:25 01/25/17 20:46 01/26/17 03:45 01/26/17 07:32 Glucose (Fingerstick) 159mg/dL (70-99) 92mg/dL (70-99) 189mg/dL (70-99) White Blood Count 5.9x10^3/uL (4.0-11.0) Red Blood Count 4.06x10^6/uL (3.50-5.40) Hemoglobin 12.0g/dL (12.0-15.5) Hematocrit 36.8% (36.0-47.0) Mean Corpuscular Volume 91fL (79-100) Mean Corpuscular Hemoglobin 30pg (25-35) Mean Corpuscular Hemoglobin Concent 33g/dL (31-37) Red Cell Distribution Width 14.3% (11.5-14.5) Platelet Count 94x10^3/uL (140-400) Neutrophils (%) (Auto) 65% (31-73) Lymphocytes (%) (Auto) 27% (24-48) Monocytes (%) (Auto) 6% (0-9) Eosinophils (%) (Auto) 1% (0-3) Basophils (%) (Auto) 1% (0-3) Neutrophils # (Auto) 3.9x10^3uL (1.8-7.7) Lymphocytes # (Auto) 1.6x10^3/uL (1.0-4.8) Monocytes # (Auto) 0.4x10^3/uL (0.0-1.1) Eosinophils # (Auto) 0.1x10^3/uL (0.0-0.7) Basophils # (Auto) 0.0x10^3/uL (0.0-0.2) Sodium Level 139mmol/L (136-145) Potassium Level 4.6mmol/L (3.5-5.1) Chloride Level 100mmol/L (98-107) Carbon Dioxide Level 33mmol/L (21-32) Anion Gap 6 (6-14) Blood Urea Nitrogen 39mg/dL (7-20) Creatinine 2.3mg/dL (0.6-1.0) Estimated GFR (Cockcroft-Gault) 21.8 Glucose Level 134mg/dL (70-99) Calcium Level 8.0mg/dL (8.5-10.1) Test 01/26/17 11:37 Glucose (Fingerstick) 97mg/dL (70-99) Microbiology 01/22/17 Blood Culture - Preliminary, Resulted NO GROWTH AFTER 4 DAYS Medications Current Medications Sodium Chloride (Iv Sodium Chloride 0.9% 1000ml Bag) 1,000 ml @ 1,000 mls/hr Q1H IV Last administered on 01/21/17 20:07; Start 01/21/17 at 19:19; Stop at 20:18; Status DC Albuterol/ Ipratropium (Duoneb) 3 ml 1X ONCE NEB Last administered on 19:32; Start 01/21/17 at 19:30; Stop 01/21/17 at 19:31; Status DC Fentanyl Citrate (Fentanyl 2ml Vial) 50 mcg PRN Q15MIN PRN IV PAIN GREATER THAN 3/10 Last administered on 01/22/17 09:10; Start 01/21/17 at 19:30; Stop 01/22 at 13:40; Status DC Ondansetron HCl (Zofran) 4 mg PRN Q8HRS PRN IV NAUSEA/VOMITING; Start 01/21/17 at 21:00; Stop 01/22/17 at 20:59; Status DC Fentanyl Citrate 50 mcg 50 mcg PRN Q2HR PRN IV PAIN Last administered on 20:12; Start 01/21/17 at 21:00; Stop 01/22/17 at 20:59; Status DC Sodium Chloride (Iv Sodium Chloride 0.9% 1000ml Bag) 1,000 ml @ 100 mls/hr Q10H IV Last administered on 01/22/17 07:22; Start 01/21/17 at 20:55; Stop at 20:54; Status DC Acetaminophen (Tylenol) 650 mg PRN Q4HRS PRN PO FEVER; Start 01/21/17 at 21:00; Stop 01/22/17 at 20:59; Status DC Lidocaine (Lidoderm) 1 patch DAILY TD Last administered on 01/26/17 08:35; Start 01/21/17 at 22:45 Aspirin (Children'S Aspirin) 81 mg DAILY PO ; Start 01/22/17 at 09:00; Status Cancel Bupropion HCl (Wellbutrin Sr) 150 mg BID PO Last administered on 01/26/17 08: 36; Start 01/22/17 at 09:00 Carvedilol (Coreg) 6.25 mg BIDWMEALS PO Last administered on 01/26/17 08:37; Start 01/22/17 at 08:00 Furosemide (Lasix) 40 mg DAILY PO Last administered on 01/26/17 08:37; Start 01/22/17 at 09:00 Insulin Aspart (Novolog) 10 units TIDAC SQ Last administered on 01/26/17 08:43 ; Start 01/22/17 at 07:30 Insulin Detemir (Levemir) 18 units QHS SQ Last administered on 01/25/17 21:20 ; Start 01/21/17 at 22:45 Montelukast Sodium (Singulair) 10 mg HS PO Last administered on 01/25/17 21:02 ; Start 01/21/17 at 22:45 Nystatin (Nystop) 1 evelia PRN BID PRN TP Yeast infection Last administered on 08:36; Start 01/21/17 at 22:30 Pantoprazole Sodium (Protonix) 40 mg DAILYAC PO Last administered on 01/26/17 08:37; Start 01/22/17 at 07:30 Potassium Chloride (Klor-Con) 40 meq DAILY PO ; Start 01/22/17 at 09:00; Stop 01/22/17 at 09:00; Status DC Prednisone (Prednisone) 10 mg DAILY PO Last administered on 01/26/17 08:37; Start 01/22/17 at 09:00 Spironolactone (Aldactone) 25 mg DAILY PO Last administered on 01/26/17 08:37 ; Start 01/22/17 at 09:00 Tizanidine HCl (Zanaflex) 4 mg BID PO Last administered on 01/26/17 08:36; Start 01/22/17 at 09:00 Topiramate (Topamax) 25 mg HS PO Last administered on 01/25/17 21:01; Start at 22:45 Tramadol HCl (Ultram) 50 mg PRN Q6HRS PRN PO PAIN Last administered on 02:44; Start 01/21/17 at 22:30 Alprazolam (Xanax) 1 mg PRN Q4HRS PRN PO ANXIETY / AGITATION Last administered on 01/26/17 05:30; Start 01/21/17 at 22:30 Non-Formulary Medication 2 inh QID IH ; Start 01/22/17 at 09:00; Status UNV Trazodone HCl (Desyrel) 150 mg QHS PO Last administered on 01/25/17 21:02; Start 01/21/17 at 22:45 Aspirin (Ecotrin) 325 mg DAILYWBKFT PO Last administered on 01/26/17 08:36; Start 01/22/17 at 08:00 Albuterol Sulfate (Ventolin Neb Soln) 2.5 mg PRN Q4HRS PRN NEB dyspnea or wheeze Last administered on 01/21/17 23:58; Start 01/21/17 at 22:30 Budesonide (Pulmicort) 0.5 mg RTBID NEB Last administered on 01/26/17 07:14; Start 01/22/17 at 08:00 Budesonide (Pulmicort) 0.5 mg 1X ONCE NEB Last administered on 01/21/17 23:59 ; Start 01/21/17 at 22:45; Stop 01/21/17 at 22:46; Status DC Potassium Chloride (Klor-Con) 20 meq DAILY PO Last administered on 01/26/17 08 :36; Start 01/22/17 at 09:00 Albuterol/ Ipratropium (Duoneb) 3 ml RTQID NEB Last administered on 01/26/17 10:58; Start 01/22/17 at 08:00 Insulin Aspart (Novolog) 0-9 UNITS TIDWMEALS SQ Last administered on 01/26/17 08:44; Start 01/22/17 at 12:00 Dextrose (Dextrose 50%-Water Syringe) 12.5 gm PRN Q15MIN PRN IV SEE COMMENTS; Start 01/22/17 at 09:15 Nicotine (Nicoderm Cq 21mg) 1 patch PRN DAILY PRN TD SMOKING CESSATION; Start 01/22/17 at 13:00 Guaifenesin (Mucinex) 600 mg BID PO Last administered on 01/26/17 08:37; Start 01/22/17 at 13:00 Fentanyl Citrate (Fentanyl 2ml Vial) 50 mcg PRN Q2HR PRN IV PAIN Last administered on 01/26/17 08:39; Start 01/23/17 at 08:00 Fentanyl (Duragesic 50mcg/ Hr Patch) 1 patch Q3DAYS TD Last administered on 08:38; Start 01/23/17 at 13:30 Guaifenesin 10 ml 10 ml PRN Q6HRS PRN PO COUGH Last administered on 01/25/17 21:01; Start 01/23/17 at 20:15 Sodium Chloride (Iv Sodium Chloride 0.9% 1000ml Bag) 1,000 ml @ 75 mls/hr [id number] IV ; Start 01/26/17 at 11:45 Active Scripts Active Prednisone 10 Mg Tablet 10 Mg PO UD Take 3 tablets by mouth twice a day for 3 days, then take 2 tablets by mouth twice a day for 3 days, then take 1 tablet by mouth twice a day for 3 days, then take 1 tablet by mouth daily x 3 days, then stop. Levemir Flextouch (Insulin Detemir) 100 Unit/1 Ml Insuln.pen 18 Units SQ QHS Novolog Flexpen (Insulin Aspart) 100 Unit/1 Ml Insuln.pen 10 Units SQ TIDAC Topamax (Topiramate) 25 Mg Tablet 25 Mg PO HS Combivent Respimat Inhal (Ipratropium/Albuterol Sulfate) 4 Gm Aer.w.adap 2 Inh IH QID Lasix (Furosemide) 40 Mg Tablet 1 Tab PO DAILY Ultram (Tramadol Hcl) 50 Mg Tablet 50 Mg PO PRN Q6HRS PRN Aldactone (Spironolactone) 25 Mg Tablet 25 Mg PO DAILY Klor-Con M20 (Potassium Chloride) 20 Meq Tablet.er 40 Meq PO DAILY Nystop (Nystatin) 1 Evelia Evelia 1 Evelia TP BID PRN [Aspirin] 325 MG Tablet.dr 325 Mg PO DAILYWBKFT Reported Wellbutrin Sr (Bupropion Hcl) 150 Mg Tablet.er 1 Tab PO BID Aspirin 81 Mg Tab.chew 1 Tab PO DAILY Montelukast Sodium Tablet (Montelukast Sodium) 10 Mg Tablet 10 Mg PO HS Tizanidine Hcl 4 Mg Tablet 1 Tab PO BID Carvedilol 6.25 Mg Tablet 6.25 Mg PO BIDWMEALS Pantoprazole Sodium 40 Mg Tablet.dr 40 Mg PO DAILY Trazodone Hcl 150 Mg Tablet 150 Mg PO QHS Alprazolam 1 Mg Tab.rapdis 1 Mg PO Q4HRS PRN Vitals/I & O Vital Sign - Last 24 Hours 01/25/17 01/25/17 01/25/17 01/25/17 15:00 15:37 17:00 18:00 Temp 97.4 97.4 Pulse 64 64 Resp 16 20 B/P 117/45 117/45 Pulse Ox 92 94 O2 Delivery Nasal Cannula Nasal Cannula O2 Flow Rate 2.0 2.0 01/25/17 01/25/17 01/25/17 01/25/17 19:00 20:00 20:35 20:39 Temp 97.4 97.4 Pulse 59 Resp 18 B/P 140/76 Pulse Ox 92 97 97 O2 Delivery Nasal Cannula Nasal Cannula Nasal Cannula Nasal Cannula O2 Flow Rate 2.0 2.0 2.0 2.0 01/25/17 01/25/17 01/26/17 01/26/17 21:03 23:00 00:52 03:00 Temp 97.7 97.3 97.7 97.3 Pulse 53 51 Resp 18 20 18 B/P 126/66 101/53 Pulse Ox 97 93 93 96 O2 Delivery Nasal Cannula Nasal Cannula Nasal Cannula Nasal Cannula O2 Flow Rate 2.0 2.0 2.0 2.0 01/26/17 01/26/17 01/26/17 01/26/17 05:30 06:00 07:00 07:15 Temp 97.3 97.3 Pulse 60 Resp 16 B/P 110/55 Pulse Ox 96 96 94 98 O2 Delivery Room Air Nasal Cannula Nasal Cannula O2 Flow Rate 2.0 2.0 2.0 01/26/17 01/26/17 01/26/17 01/26/17 08:00 08:37 08:38 08:39 Pulse 60 B/P 110/55 O2 Delivery Nasal Cannula Nasal Cannula Nasal Cannula O2 Flow Rate 2.0 2.0 2.0 01/26/17 01/26/17 01/26/17 01/26/17 09:09 11:00 11:00 12:42 Temp 97.5 97.5 Pulse 68 Resp 16 B/P 102/59 Pulse Ox 96 O2 Delivery Room Air Nasal Cannula Nasal Cannula Nasal Cannula O2 Flow Rate 2.0 2.0 2.0 Intake and Output 01/25/17 01/25/17 01/26/17 15:00 23:00 07:00 Output Total 0 ml Balance 0 ml NISSA NEVAREZ III DO Jan 26, 2017 14:30
--- NOTE | 2017-01-26 23:53 | DS ---
DATE OF DISCHARGE: 01/26/2017 ADMISSION DIAGNOSES: Back pain and chronic obstructive pulmonary disease. DISCHARGE DIAGNOSES: Intractable back pain with chronic degenerative joint disease of the back and chronic obstructive pulmonary disease. HOSPITAL COURSE: The patient is a pleasant 56-year-old female, who has COPD. She presented with back pain. We admitted. We gave her physical therapy, occupational therapy, we consulted Dr. Saba. Did some extra imaging, but realty there is nothing we can do about her chronic back pain. She has degenerative joint disease. We did give her some narcotics and treated with breathing treatments and oxygen. She is doing better. We planned to discharge. DISPOSITION: Home. ACTIVITY: As tolerated. DIET: Low sodium. MEDICATIONS: Please see the MRAD. TOTAL TIME ON DISCHARGE: 38 minutes. NISSA NEVAREZ DO DR: HEIDY/millie JOB#: [id number] / [id number]
== END 2017-01-26 14:30 | disposition home health service (06) | DRG 551 ==
LOC: ER 18:58 → 4 NORTH 20:30
PROVIDERS: ADMIT Internal Medicine; ATTEND Internal Medicine
DX: M51.27 Other intervertebral disc displacement, lumbosacral region (principal); N17.0 Acute kidney failure with tubular necrosis; E44.0 Moderate protein-calorie malnutrition; I13.0 Hypertensive heart and chronic kidney disease with heart failure and stage 1 through stage 4 chronic kidney disease, or unspecified chronic kidney disease; N18.4 Chronic kidney disease, stage 4 (severe); Z68.41 Body mass index [BMI] 40.0-44.9, adult; J96.10 Chronic respiratory failure, unspecified whether with hypoxia or hypercapnia; E11.22 Type 2 diabetes mellitus with diabetic chronic kidney disease; E11.42 Type 2 diabetes mellitus with diabetic polyneuropathy; E86.0 Dehydration; F17.200 Nicotine dependence, unspecified, uncomplicated; F41.9 Anxiety disorder, unspecified; G89.29 Other chronic pain; I50.9 Heart failure, unspecified; J44.9 Chronic obstructive pulmonary disease, unspecified; K21.9 Gastro-esophageal reflux disease without esophagitis; M48.06 Spinal stenosis, lumbar region; E66.01 Morbid (severe) obesity due to excess calories; F11.10 Opioid abuse, uncomplicated; F32.9 Major depressive disorder, single episode, unspecified; W06.XXXA Fall from bed, initial encounter; M17.0 Bilateral primary osteoarthritis of knee; Z90.710 Acquired absence of both cervix and uterus; Z83.3 Family history of diabetes mellitus; Z99.81 Dependence on supplemental oxygen; Z88.2 Allergy status to sulfonamides; Z88.8 Allergy status to other drugs, medicaments and biological substances; Z88.5 Allergy status to narcotic agent; Z88.0 Allergy status to penicillin; Z91.013 Allergy to seafood; Y93.89 Activity, other specified; Y92.89 Other specified places as the place of occurrence of the external cause; Y99.8 Other external cause status
CPT/HCPCS: 36415; 71010; 72148; 73565; 80048; 80053; 81001; 82553; 82947; 83605; 83880; 84484; 85027; 87040; 87804; 93005; 94250; 94640; 94760; G0238; J1815; J3010; J7030; J7512; J7620; 97110; 97116; 97530; 97535

== ENCOUNTER 2017-07-24 07:12 | Inpatient (IN) | payer OTHER ==
[~2017-07-24] VITALS: Ht 170.2 cm; Wt 122.9 kg
[~2017-07-24 07:12] MED LIST changes: +ASPI-630 PO; -ASPI81TA2 PO; -OXYC-244 PO; +OXYC-327 PO; -TOPI25TA32 PO; +TOPI25TA52 PO; -TRAM-29 PO; +TRAM-48 PO; +TRAZ150T49 PO; -TRAZ150T55 PO
--- NOTE | 2017-07-24 07:19 | PHYS DOC ---
Past Medical History Past Medical History: Anxiety, Asthma, Bipolar, Bronchitis, COPD, Depression, Diabetes-Type II, GERD Additional Past Medical Histor: CHRONIC BACK PAIN,spinal stenosis,edema, morbid obesity, narcotic abuse Past Surgical History: Hysterectomy, Other Additional Past Surgical Histo: Back surgery Alcohol Use: None Drug Use: None Adult General Chief Complaint Chief Complaint: short of breath HPI HPI Patient is a 57 year old female who presents with shortness of breath. She states it started 2 days ago. She denies any productive cough fevers chills. She does have substernal chest pain is constant in nature. She states she has a history of COPD camera last time she needed steroids. She does see Dr. Echeverria as her lung doctor. Review of Systems Review of Systems Constitutional: Denies fever or chills [] Eyes: Denies change in visual acuity, redness, or eye pain [] HENT: Denies nasal congestion or sore throat [] Respiratory: Denies cough, positive for shortness of breath [] Cardiovascular: No additional information not addressed in HPI [] GI: Denies abdominal pain, nausea, vomiting, bloody stools or diarrhea [] : Denies dysuria or hematuria [] Musculoskeletal: Denies back pain or joint pain [] Integument: Denies rash or skin lesions [] Neurologic: Denies headache, focal weakness or sensory changes [] Endocrine: Denies polyuria or polydipsia [] Current Medications Current Medications Current Medications Medications (Trade) Dose Ordered Sig/Sunny Start Time Stop Time Status Last Admin Dose Admin Albuterol/ Ipratropium (Duoneb) 3 ml 1X ONCE 07/24/17 07:30 07/24/17 07:31 DC 07/24/17 07:35 3 ML Azithromycin 250 ml @ 250 mls/hr 1X ONCE 07/24/17 08:45 07/24/17 09:44 Methylprednisolone Sodium Succinate (SOLU-Medrol 125MG VIAL) 125 mg 1X ONCE 07/24/17 07:30 07/24/17 07:31 DC 07/24/17 07:39 125 MG Allergies Allergies Allergies Coded Allergies Type Severity Reaction Last Updated Verified Fish Containing Products Allergy Intermediate Itching 10/15/15 Yes Penicillins Allergy Intermediate 02/04/14 Yes Sulfa (Sulfonamide Antibiotics) Allergy Intermediate 02/04/14 Yes codeine Allergy Intermediate 02/15/16 Yes morphine Allergy Intermediate Hives 02/15/16 Yes Physical Exam Physical Exam Constitutional: Well developed, well nourished, no acute distress, non-toxic appearance. [] HENT: Normocephalic, atraumatic, bilateral external ears normal, oropharynx moist, no oral exudates, nose normal. [] Eyes: PERRLA, EOMI, conjunctiva normal, no discharge. [] Neck: Normal range of motion, no tenderness, supple, no stridor. [] Cardiovascular:Heart rate regular rhythm, no murmur [] Lungs & Thorax: Decreased breath sounds with mild expiratory wheezing bilaterally Abdomen: Bowel sounds normal, soft, no tenderness, no masses, no pulsatile masses. [] Skin: Warm, dry, no erythema, no rash. [] Back: No tenderness, no CVA tenderness. [] Extremities: No tenderness, no cyanosis, no clubbing, ROM intact, no edema. [] Neurologic: Alert and oriented X 3, normal motor function, normal sensory function, no focal deficits noted. [] Psychologic: Affect normal, judgement normal, mood normal. [] Current Patient Data Vital Signs Vital Signs Date Time Temp Pulse Resp B/P (MAP) Pulse Ox O2 Delivery O2 Flow Rate FiO2 07/24/17 07:38 96 Nasal Cannula 3.0 07/24/17 07:12 97.6 80 28 142/69 (93) 97.6 Lab Values Laboratory Tests Test 07/24/17 07:40 07/24/17 07:55 07/24/17 08:15 White Blood Count 7.2 x10^3/uL (4.0-11.0) Red Blood Count 4.04 x10^6/uL (3.50-5.40) Hemoglobin 11.9 g/dL (12.0-15.5) L Hematocrit 36.4 % (36.0-47.0) Mean Corpuscular Volume 90 fL (79-100) Mean Corpuscular Hemoglobin 30 pg (25-35) Mean Corpuscular Hemoglobin Concent 33 g/dL (31-37) Red Cell Distribution Width 13.2 % (11.5-14.5) Platelet Count 112 x10^3/uL (140-400) L Neutrophils (%) (Auto) 74 % (31-73) H Lymphocytes (%) (Auto) 16 % (24-48) L Monocytes (%) (Auto) 8 % (0-9) Eosinophils (%) (Auto) 1 % (0-3) Basophils (%) (Auto) 1 % (0-3) Neutrophils # (Auto) 5.3 x10^3uL (1.8-7.7) Lymphocytes # (Auto) 1.2 x10^3/uL (1.0-4.8) Monocytes # (Auto) 0.6 x10^3/uL (0.0-1.1) Eosinophils # (Auto) 0.1 x10^3/uL (0.0-0.7) Basophils # (Auto) 0.0 x10^3/uL (0.0-0.2) Prothrombin Time 14.1 SEC (11.7-14.0) H Prothrombin Time INR 1.2 (0.8-1.1) H Sodium Level 141 mmol/L (136-145) Potassium Level 4.9 mmol/L (3.5-5.1) Chloride Level 104 mmol/L (98-107) Carbon Dioxide Level 32 mmol/L (21-32) Anion Gap 5 (6-14) L Blood Urea Nitrogen 23 mg/dL (7-20) H Creatinine 1.7 mg/dL (0.6-1.0) H Estimated GFR (Cockcroft-Gault) 30.8 Glucose Level 168 mg/dL (70-99) H Calcium Level 8.6 mg/dL (8.5-10.1) Magnesium Level 1.2 mg/dL (1.8-2.4) L Total Bilirubin 0.6 mg/dL (0.2-1.0) Direct Bilirubin 0.1 mg/dL (0.0-0.2) Aspartate Amino Transferase (AST) 16 U/L (15-37) Alanine Aminotransferase (ALT) 12 U/L (14-59) L Alkaline Phosphatase 72 U/L (46-116) Creatine Kinase 42 U/L (26-192) Creatine Kinase MB (Mass) 0.8 ng/mL (0.0-3.6) Creatine Kinase MB Relative Index % (0-4) Troponin I Quantitative < 0.017 ng/mL (0.000-0.055) WD-Lwo-W-Type Natriuretic Peptide 181 pg/mL (0-124) H Total Protein 7.3 g/dL (6.4-8.2) Albumin 3.2 g/dL (3.4-5.0) L Urine Collection Type Unknown Urine Color Yellow Urine Clarity Clear Urine pH 6.5 Urine Specific [place] 1.025 Urine Protein Negative mg/dL (NEG-TRACE) Urine Glucose (UA) Negative mg/dL (NEG) Urine Ketones (Stick) Negative mg/dL (NEG) Urine Blood Negative (NEG) Urine Nitrite Negative (NEG) Urine Bilirubin Negative (NEG) Urine Urobilinogen Dipstick 1.0 mg/dL (0.2 mg/dL) Urine Leukocyte Esterase Negative (NEG) Urine RBC 0 /HPF (0-2) Urine WBC 0 /HPF (0-4) Urine Squamous Epithelial Cells Mod /LPF Urine Bacteria 0 /HPF (0-FEW) Urine Mucus Slight /LPF Urine Opiates Screen Pos (NEG) Urine Methadone Screen Neg (NEG) Urine Barbiturates Neg (NEG) Urine Phencyclidine Screen Neg (NEG) Urine Amphetamine/Methamphetamine Neg (NEG) Urine Benzodiazepines Screen Pos (NEG) Urine Cocaine Screen Neg (NEG) Urine Cannabinoids Screen Neg (NEG) Urine Ethyl Alcohol Neg (NEG) O2 Saturation 95 % (92-99) Arterial Blood pH 7.35 (7.35-7.45) Arterial Blood pCO2 at Patient Temp 49 mmHg (35-46) H Arterial Blood pO2 at Patient Temp 81 mmHg (65-108) Arterial Blood HCO3 26 mmol/L (21-28) Arterial Blood Base Excess 0 mmol/L (-3-3) FiO2 32 Laboratory Tests 07/24/17 07:40 Laboratory Tests 07/24/17 07:40 EKG EKG EKG shows sinus rhythm with rate of [address] elevations or concerning T-wave inversions, normal axis, QTC 436 no sinus, as interpreted by me. Radiology/Procedures Radiology/Procedures [facility] [address] [place], [place] [id number] IMAGING REPORT Signed PATIENT: JERMAN MORALES ACCOUNT: [id number] : 1960 LOCATION: ER AGE: 57 SEX: F EXAM STATUS: PRE ER ORD. PHYSICIAN: DAVID GIORDANO MD REASON: [place] PROCEDURE: PORTABLE CHEST 1V Portable chest, 07/24/2017: History: Shortness of breath Comparison is made to a study from 01/21/2017. The heart size and pulmonary vascularity are normal. No pulmonary infiltrates are seen. No pleural fluid is evident. IMPRESSION: No acute cardiopulmonary abnormality is detected. DICTATED and SIGNED BY: NILSA RAMIREZ MD DATE: 07/24/17 0805 CC: DAVID GIORDANO MD; KIRBY GIRON Jr, MD ~ Impressions: COPD exacerbation Chronic back pain Diabetes Depression chronic renal insufficiency Course & Med Decision Making Course & Med Decision Making Pertinent Labs and Imaging studies reviewed. (See chart for details) Patient presents with shortness of breath ABG does not show any acute abnormalities. She received Solu-Medrol and azithromycin is being admitted for COPD exacerbation. She is in stable condition this time be admitted to Dr. Lira with interim orders written. I feel the patient is stable to go to med telemetry at this time. She has an elevated creatinine but this appears to be lower than her normal baseline. Dragon Disclaimer Dragon Disclaimer This electronic medical record was generated, in whole or in part, using a voice recognition dictation system. Departure Departure Impression: Primary Impression: COPD exacerbation Disposition: ADMITTED INPATIENT Admitting Physician: Other Condition: STABLE Referrals: KIRBY GIRON Jr, MD (PCP) DAVID GIORDANO MD Jul 24, 2017 07:19
[2017-07-24] MEDS ORDERED: IPRATRPIUM/ALBUTEROL 0.5/2.5MG 3 ML NEBU. NEB ONE (07:30)
[2017-07-24] MEDS ORDERED: methylPREDNISolone SOD SUCC PF 125 MG/2 ML VIAL. IV ONE (07:30)
[2017-07-24 08:01] LABS: BASO % 1 % (0-3); EOS % 1 % (0-3); HEMATOCRIT 36.4 % (36.0-47.0); HEMOGLOBIN 11.9 g/dL (12.0-15.5); LYMPH # 1.2 x10^3/uL (1.0-4.8); LYMPH % 16 % (24-48); MEAN CORPUSCULAR HEMOGLOBIN 30 pg (25-35); MEAN CORPUSCULAR HGB CONC 33 g/dL (31-37); MEAN CORPUSCULAR VOLUME 90 fL (79-100); MONO % 8 % (0-9); NEUT % 74 % (31-73); PLATELET COUNT 112 x10^3/uL (140-400); RED BLOOD COUNT 4.04 x10^6/uL (3.50-5.40); RED CELL DISTRIBUTION WIDTH 13.2 % (11.5-14.5); WHITE BLOOD COUNT 7.2 x10^3/uL (4.0-11.0)
--- NOTE | 2017-07-24 08:08 | RAD ---
Portable chest, 07/24/2017: History: Shortness of breath Comparison is made to a study from 01/21/2017. The heart size and pulmonary vascularity are normal. No pulmonary infiltrates are seen. No pleural fluid is evident. IMPRESSION: No acute cardiopulmonary abnormality is detected.
[2017-07-24 08:09] LABS: BILIRUBIN,URINE NEGATIVE (NEG); GLUCOSE,URINE NEGATIVE (NEG); NITRITE,URINE NEGATIVE (NEG); PH,URINE 6.5; PROTEIN,URINE NEGATIVE (NEG-TRACE)
[2017-07-24 08:14] LABS: INR 1.2 (0.8-1.1); PROTHROMBIN TIME PATIENT 14.1 SEC (11.7-14.0)
[2017-07-24 08:18] LABS: CALCIUM 8.6 mg/dL (8.5-10.1); CREATININE 1.7 mg/dL (0.6-1.0); GFR 30.8; POTASSIUM 4.9 mmol/L (3.5-5.1)
[2017-07-24 08:22] LABS: HCO3 ABG 26 mmol/L (21-28); PCO2 ABG 49 mmHg (35-46); PH ABG 7.35 (7.35-7.45); PO2 ABG 81 mmHg (65-108); SAT O2 ABG 95 % (92-99)
[2017-07-24 08:24] LABS: FIO2 ABG 32
[2017-07-24 08:26] LABS: ALBUMIN 3.2 g/dL (3.4-5.0); DIRECT BILIRUBIN 0.1 mg/dL (0.0-0.2); MAGNESIUM 1.2 mg/dL (1.8-2.4); TOTAL BILIRUBIN 0.6 mg/dL (0.2-1.0); TOTAL PROTEIN 7.3 g/dL (6.4-8.2)
[2017-07-24 08:36] LABS: BACTERIA,URINE 0 /HPF (0-FEW); RBC,URINE 0 /HPF (0-2); SQUAMOUS EPITHELIAL CELL,UR MOD /LPF; WBC,URINE 0 /HPF (0-4)
[2017-07-24 08:36] LABS: CKMB MASS 0.8 ng/mL (0.0-3.6); CREATINE KINASE 42 U/L (26-192)
[2017-07-24 08:37] LABS: BARBITURATES NEG (NEG); BENZODIAZEPINES POS (NEG); CANNABINOIDS NEG (NEG); COCAINE NEG (NEG); METHADONE NEG (NEG); OPIATES POS (NEG); PHENCYCLIDINE NEG (NEG)
[2017-07-24] MEDS ORDERED: AZITHRMYCN 500MG IVPB FOR OMNI 250 ML IV ONE (08:45)
[2017-07-24] MEDS ORDERED: HYDROcodone/APAP 5/325MG 1 TAB TABLET PO ONE (09:00)
[2017-07-24] MEDS ORDERED: ONDANSETRON PF 4 MG/2 ML VIAL. IV PRN (09:00)
[2017-07-24] MEDS ORDERED: IPRATRPIUM/ALBUTEROL 0.5/2.5MG 3 ML NEBU. NEB PRN (09:00)
[2017-07-24 10:45] VITALS: BP 148/74
--- NOTE | 2017-07-24 11:53 | EKG ---
[facility] [address] [place] [address] Test Date: 2017-07-24 Test Time: 07:34:21 Pat Name: JERMAN MORALES Department: Room: 586 1 Gender: F Account Director: BENNY : 1960 Requested By: DAVID GIORDANO Order Number: [id number] Reading MD: Casper Childers Measurements Intervals [place] Rate: 83 P: 38 [place]: 166 QRS: 9 QRSD: 76 T: 52 QT: 366 QTc: 436 Interpretive Statements SINUS RHYTHM NONSPECIFIC ST-T WAVE CHANGES. RI6.01 Compared to ECG 01/21/2017 19:47:39 No significant changes Electronically Signed On 08-11-2017 17:18:21 CDT by Casper Childers
[2017-07-24] MEDS ORDERED: ALBUTEROL SULFATE 2.5 MG/3 ML NEBU. NEB PRN (12:30)
[2017-07-24] MEDS ORDERED: DEXTROSE 50% 25 GM / 50ML DISP.SYRIN. IV PRN ×2 (12:30→13:30)
[2017-07-24] MEDS ORDERED: NYSTATIN TOPICAL POWDER 15GM BOTTLE. TP PRN (13:30)
--- NOTE | 2017-07-24 13:48 | HP ---
ADMIT DATE: 07/24/2017 CHIEF COMPLAINT: Shortness of breath. HISTORY OF PRESENT ILLNESS: The patient is a 57-year-old obese woman with O2 dependent chronic obstructive pulmonary disease, who presented to the Emergency Room with a 5-day history of worsening shortness of breath. She relates that especially the last 2 days she has been feeling quite ill. Has subjective fevers, stuffy nose, sore throat, cough, but is unable to raise sputum. No other family members are sick around her. In the Emergency Room, she was noted not to be hypoxic with a pulse ox of 96 with 3 liters, chest x-ray was clear. She is admitted for chronic obstructive pulmonary disease exacerbation. PAST MEDICAL HISTORY: O2 dependent chronic obstructive pulmonary disease, congestive heart failure, gastroesophageal reflux disease, osteoarthritis, chronic renal insufficiency, urinary incontinence. PAST SURGICAL HISTORY: Positive for hysterectomy, tonsillectomy. FAMILY HISTORY: Diabetes. SOCIAL HISTORY: Lives with her . Quit smoking heavily 6 years ago up to 3 packs per day, still smokes a cigarette here and there. Denies any alcohol or drug use. ALLERGIES: PENICILLIN, SULFA, CODEINE, MORPHINE, AND FISH CONTAINING PRODUCTS. MEDICATIONS: MAR reconciled with home meds. REVIEW OF SYSTEMS: Positive as per history of present illness. Rest of organ system review is essentially negative. PHYSICAL EXAMINATION: VITAL SIGNS: From today show a blood pressure of 148/74, heart rate of 72, respiratory rate at 18. She is afebrile. GENERAL: This is a morbidly obese 57-year-old woman, alert and oriented, in no acute distress. HEENT: Shows no scleral icterus. NECK: Supple. LUNGS: Fairly clear bilaterally without any wheezing or crackles. HEART: Has regular rate and rhythm. ABDOMEN: Has positive bowel sounds, soft, nontender. EXTREMITIES: Show no edema. SKIN: Warm, soft and dry without any rash. LABORATORY DATA: CBC from today shows a WBC of 7.2, hemoglobin 11.9, platelets of 112. Of note, previous labs in January of this year show her platelet count between 88 and 116. Chemistries with a BUN and creatinine of 23 and 1.7. Once again, this is her baseline or even below. Electrolytes within normal limits. LFTs within normal, albumin at 3.2 and proBNP at 181. IMAGING: Chest x-ray without infiltrate in her lung pacheco. ASSESSMENT AND PLAN: The patient is a 57-year-old woman with chronic obstructive pulmonary disease, O2 dependent, as well as congestive heart failure, now presenting with respiratory failure. She does not appear to be hypoxic at this time. Suspect this is a chronic obstructive pulmonary disease exacerbation probably brought on by upper respiratory illness, possibly viral. We will treat her with IV steroids. She has been started on azithromycin in the Emergency Room for atypical respiratory infection. We will continue nebulizers, inhalers as needed and standing order DuoNeb. We will continue all her home medications for cardiac issues. She is on Lasix and potassium for heart failure. She also takes Levemir for diabetes. We will supplement with insulin sliding scale for monitoring. JASMINE MILLER MD DR: UR/nts JOB#: [id number] / [id number] KIRBY Menon MD MTDD
[2017-07-24 15:00] VITALS: BP 133/65
[2017-07-24] MEDS: tiZANidine 4 MG TABLET. PO SCH ×2 (15:35→20:27)
[2017-07-24] MEDS: ALPRAZolam 1 MG TABLET PO PRN ×2 (15:36→20:28)
[2017-07-24] MEDS: FUROSEMIDE 40 MG TABLET. PO SCH (15:36)
[2017-07-24] MEDS: ASPIRIN CHEWABLE 81 MG TABLET. PO SCH (15:36)
--- NOTE | 2017-07-24 15:52 | PDOC ---
PULMONARY PROGRESS NOTES Vitals Vital Signs Date Time Temp Pulse Resp B/P (MAP) Pulse Ox O2 Delivery O2 Flow Rate FiO2 07/24/17 12:46 Nasal Cannula 3.0 07/24/17 12:14 97 07/24/17 10:45 98.1 72 18 148/74 (98) 98.1 General: Alert, Oriented X4, No acute distress Lungs: Clear, Other Cardiovascular: S1, S2 Abdomen: Soft, Non-tender Extremities: No Edema, Other Labs Laboratory Tests Test 07/24/17 07:40 07/24/17 07:55 07/24/17 08:15 07/24/17 10:58 White Blood Count 7.2 x10^3/uL (4.0-11.0) Red Blood Count 4.04 x10^6/uL (3.50-5.40) Hemoglobin 11.9 g/dL (12.0-15.5) Hematocrit 36.4 % (36.0-47.0) Mean Corpuscular Volume 90 fL (79-100) Mean Corpuscular Hemoglobin 30 pg (25-35) Mean Corpuscular Hemoglobin Concent 33 g/dL (31-37) Red Cell Distribution Width 13.2 % (11.5-14.5) Platelet Count 112 x10^3/uL (140-400) Neutrophils (%) (Auto) 74 % (31-73) Lymphocytes (%) (Auto) 16 % (24-48) Monocytes (%) (Auto) 8 % (0-9) Eosinophils (%) (Auto) 1 % (0-3) Basophils (%) (Auto) 1 % (0-3) Neutrophils # (Auto) 5.3 x10^3uL (1.8-7.7) Lymphocytes # (Auto) 1.2 x10^3/uL (1.0-4.8) Monocytes # (Auto) 0.6 x10^3/uL (0.0-1.1) Eosinophils # (Auto) 0.1 x10^3/uL (0.0-0.7) Basophils # (Auto) 0.0 x10^3/uL (0.0-0.2) Prothrombin Time 14.1 SEC (11.7-14.0) Prothromb Time International Ratio 1.2 (0.8-1.1) Sodium Level 141 mmol/L (136-145) Potassium Level 4.9 mmol/L (3.5-5.1) Chloride Level 104 mmol/L (98-107) Carbon Dioxide Level 32 mmol/L (21-32) Anion Gap 5 (6-14) Blood Urea Nitrogen 23 mg/dL (7-20) Creatinine 1.7 mg/dL (0.6-1.0) Estimated GFR (Cockcroft-Gault) 30.8 Glucose Level 168 mg/dL (70-99) Calcium Level 8.6 mg/dL (8.5-10.1) Magnesium Level 1.2 mg/dL (1.8-2.4) Total Bilirubin 0.6 mg/dL (0.2-1.0) Direct Bilirubin 0.1 mg/dL (0.0-0.2) Aspartate Amino Transf (AST/SGOT) 16 U/L (15-37) Alanine Aminotransferase (ALT/SGPT) 12 U/L (14-59) Alkaline Phosphatase 72 U/L (46-116) Creatine Kinase 42 U/L (26-192) Creatine Kinase MB (Mass) 0.8 ng/mL (0.0-3.6) Creatine Kinase MB Relative Index % (0-4) Troponin I Quantitative < 0.017 ng/mL (0.000-0.055) LX-Zud-D-Type Natriuretic Peptide 181 pg/mL (0-124) Total Protein 7.3 g/dL (6.4-8.2) Albumin 3.2 g/dL (3.4-5.0) Urine Collection Type Unknown Urine Color Yellow Urine Clarity Clear Urine pH 6.5 Urine Specific [place] 1.025 Urine Protein Negative mg/dL (NEG-TRACE) Urine Glucose (UA) Negative mg/dL (NEG) Urine Ketones (Stick) Negative mg/dL (NEG) Urine Blood Negative (NEG) Urine Nitrite Negative (NEG) Urine Bilirubin Negative (NEG) Urine Urobilinogen Dipstick 1.0 mg/dL (0.2 mg/dL) Urine Leukocyte Esterase Negative (NEG) Urine RBC 0 /HPF (0-2) Urine WBC 0 /HPF (0-4) Urine Squamous Epithelial Cells Mod /LPF Urine Bacteria 0 /HPF (0-FEW) Urine Mucus Slight /LPF Urine Opiates Screen Pos (NEG) Urine Methadone Screen Neg (NEG) Urine Barbiturates Neg (NEG) Urine Phencyclidine Screen Neg (NEG) Urine Amphetamine/Methamphetamine Neg (NEG) Urine Benzodiazepines Screen Pos (NEG) Urine Cocaine Screen Neg (NEG) Urine Cannabinoids Screen Neg (NEG) Urine Ethyl Alcohol Neg (NEG) O2 Saturation 95 % (92-99) Arterial Blood pH 7.35 (7.35-7.45) Arterial Blood pCO2 at Patient Temp 49 mmHg (35-46) Arterial Blood pO2 at Patient Temp 81 mmHg (65-108) Arterial Blood HCO3 26 mmol/L (21-28) Arterial Blood Base Excess 0 mmol/L (-3-3) FiO2 32 Glucose (Fingerstick) 198 mg/dL (70-99) Test 07/24/17 15:00 Troponin I Quantitative < 0.017 ng/mL (0.000-0.055) Laboratory Tests Test 07/24/17 07:40 07/24/17 07:55 07/24/17 08:15 07/24/17 10:58 White Blood Count 7.2 x10^3/uL (4.0-11.0) Red Blood Count 4.04 x10^6/uL (3.50-5.40) Hemoglobin 11.9 g/dL (12.0-15.5) Hematocrit 36.4 % (36.0-47.0) Mean Corpuscular Volume 90 fL (79-100) Mean Corpuscular Hemoglobin 30 pg (25-35) Mean Corpuscular Hemoglobin Concent 33 g/dL (31-37) Red Cell Distribution Width 13.2 % (11.5-14.5) Platelet Count 112 x10^3/uL (140-400) Neutrophils (%) (Auto) 74 % (31-73) Lymphocytes (%) (Auto) 16 % (24-48) Monocytes (%) (Auto) 8 % (0-9) Eosinophils (%) (Auto) 1 % (0-3) Basophils (%) (Auto) 1 % (0-3) Neutrophils # (Auto) 5.3 x10^3uL (1.8-7.7) Lymphocytes # (Auto) 1.2 x10^3/uL (1.0-4.8) Monocytes # (Auto) 0.6 x10^3/uL (0.0-1.1) Eosinophils # (Auto) 0.1 x10^3/uL (0.0-0.7) Basophils # (Auto) 0.0 x10^3/uL (0.0-0.2) Prothrombin Time 14.1 SEC (11.7-14.0) Prothromb Time International Ratio 1.2 (0.8-1.1) Sodium Level 141 mmol/L (136-145) Potassium Level 4.9 mmol/L (3.5-5.1) Chloride Level 104 mmol/L (98-107) Carbon Dioxide Level 32 mmol/L (21-32) Anion Gap 5 (6-14) Blood Urea Nitrogen 23 mg/dL (7-20) Creatinine 1.7 mg/dL (0.6-1.0) Estimated GFR (Cockcroft-Gault) 30.8 Glucose Level 168 mg/dL (70-99) Calcium Level 8.6 mg/dL (8.5-10.1) Magnesium Level 1.2 mg/dL (1.8-2.4) Total Bilirubin 0.6 mg/dL (0.2-1.0) Direct Bilirubin 0.1 mg/dL (0.0-0.2) Aspartate Amino Transf (AST/SGOT) 16 U/L (15-37) Alanine Aminotransferase (ALT/SGPT) 12 U/L (14-59) Alkaline Phosphatase 72 U/L (46-116) Creatine Kinase 42 U/L (26-192) Creatine Kinase MB (Mass) 0.8 ng/mL (0.0-3.6) Creatine Kinase MB Relative Index % (0-4) Troponin I Quantitative < 0.017 ng/mL (0.000-0.055) HG-Ukj-T-Type Natriuretic Peptide 181 pg/mL (0-124) Total Protein 7.3 g/dL (6.4-8.2) Albumin 3.2 g/dL (3.4-5.0) Urine Collection Type Unknown Urine Color Yellow Urine Clarity Clear Urine pH 6.5 Urine Specific [place] 1.025 Urine Protein Negative mg/dL (NEG-TRACE) Urine Glucose (UA) Negative mg/dL (NEG) Urine Ketones (Stick) Negative mg/dL (NEG) Urine Blood Negative (NEG) Urine Nitrite Negative (NEG) Urine Bilirubin Negative (NEG) Urine Urobilinogen Dipstick 1.0 mg/dL (0.2 mg/dL) Urine Leukocyte Esterase Negative (NEG) Urine RBC 0 /HPF (0-2) Urine WBC 0 /HPF (0-4) Urine Squamous Epithelial Cells Mod /LPF Urine Bacteria 0 /HPF (0-FEW) Urine Mucus Slight /LPF Urine Opiates Screen Pos (NEG) Urine Methadone Screen Neg (NEG) Urine Barbiturates Neg (NEG) Urine Phencyclidine Screen Neg (NEG) Urine Amphetamine/Methamphetamine Neg (NEG) Urine Benzodiazepines Screen Pos (NEG) Urine Cocaine Screen Neg (NEG) Urine Cannabinoids Screen Neg (NEG) Urine Ethyl Alcohol Neg (NEG) O2 Saturation 95 % (92-99) Arterial Blood pH 7.35 (7.35-7.45) Arterial Blood pCO2 at Patient Temp 49 mmHg (35-46) Arterial Blood pO2 at Patient Temp 81 mmHg (65-108) Arterial Blood HCO3 26 mmol/L (21-28) Arterial Blood Base Excess 0 mmol/L (-3-3) FiO2 32 Glucose (Fingerstick) 198 mg/dL (70-99) Test 07/24/17 15:00 Troponin I Quantitative < 0.017 ng/mL (0.000-0.055) Medications Active Scripts Medications Dose Route/Sig Max Daily Dose Days Date Category Levemir Flextouch (Insulin Detemir) 100 Unit/1 Ml Insuln.pen 18 Units SQ QHS 10/17/15 Rx Novolog Flexpen (Insulin Aspart) 100 Unit/1 Ml Insuln.pen 10 Units SQ TIDAC 10/17/15 Rx Topamax (Topiramate) 25 Mg Tablet 25 Mg PO HS 03/18/15 Rx Wellbutrin Sr (Bupropion Hcl) 150 Mg Tablet.er 1 Tab PO BID 03/11/15 Reported Aspirin 81 Mg Tab.chew 1 Tab PO DAILY 03/11/15 Reported Montelukast Sodium Tablet (Montelukast Sodium) 10 Mg Tablet 10 Mg PO HS 03/11/15 Reported Tizanidine Hcl 4 Mg Tablet 1 Tab PO BID 03/11/15 Reported Combivent Respimat Inhal (Ipratropium/Albuterol Sulfate) 4 Gm Aer.w.adap 2 Inh IH QID 11/28/14 Rx Lasix (Furosemide) 40 Mg Tablet 1 Tab PO DAILY 10/25/14 Rx Aldactone (Spironolactone) 25 Mg Tablet 25 Mg PO DAILY 10/25/14 Rx Klor-Con M20 (Potassium Chloride) 20 Meq Tablet.er 40 Meq PO DAILY 10/25/14 Rx Nystop (Nystatin) 1 Omid Omid 1 Omid TP BID PRN 10/25/14 Rx [Aspirin] 325 MG Tablet.dr 325 Mg PO DAILYWBKFT 10/25/14 Rx Carvedilol 6.25 Mg Tablet 6.25 Mg PO BIDWMEALS 10/22/14 Reported Pantoprazole Sodium 40 Mg Tablet.dr 40 Mg PO DAILY 10/22/14 Reported Alprazolam 1 Mg Tab.rapdis 1 Mg PO Q4HRS PRN 02/04/14 Reported Impression . aecopd a/c rf CHA RAZA MD Jul 24, 2017 15:52
[2017-07-24] MEDS: IPRATRPIUM/ALBUTEROL 0.5/2.5MG 3 ML NEBU. NEB SCH ×4 (16:00→20:36)
--- NOTE | 2017-07-24 16:46 | CONS ---
DATE OF CONSULTATION: 07/24/2017 ATTENDING PHYSICIAN: Dr. Lira. REASON FOR CONSULTATION: The patient seen in pulmonary consultation at the request of Dr. Lira for increasing shortness of air. HISTORY OF PRESENT ILLNESS: The patient is a 57-year-old female with history of COPD, presenting with increasing shortness of breath and epigastric discomfort. She was noted to be hypoxic in the emergency room, was placed on oxygen supplementation, on 3 liters saturation was 96%. She was admitted. I was asked to see her in consultation. She has cough, mostly nonproductive. No fever, chills or night sweats. PAST MEDICAL HISTORY: 1. COPD. 2. Chronic respiratory failure. 3. Congestive heart failure. 4. Tobacco dependent. 5. Gastroesophageal reflux. 6. Osteoarthritis. 7. Chronic renal insufficiency. PAST SURGICAL HISTORY: Status post hysterectomy and tonsillectomy. FAMILY HISTORY: Remarkable for diabetes. SOCIAL HISTORY: She smokes on and off. REVIEW OF SYSTEMS: As indicated above, otherwise, a 10-point system was reviewed and negative. MEDICATIONS: List was reviewed. ALLEGIES: The patient has multiple allergies including intolerance to PENICILLIN, SULFA, CODEINE, AND MORPHINE. PHYSICAL EXAMINATION: GENERAL: The patient was lying in bed, in no respiratory distress. VITAL SIGNS: Stable. O2 saturation greater than 92%. HEENT: Eyes, the sclerae were nonicteric. NECK: Jugular venous distention could not be assessed secondary to BiPAP. CHEST: Full expansion. LUNGS: Poor airway flow with scattered wheezes. CARDIOVASCULAR: Regular rate and rhythm with S1, S2, no S3. ABDOMEN: Soft, nontender, nondistended. EXTREMITIES: No clubbing, cyanosis, or edema. LABORATORY DATA: Chest x-ray was reviewed, no acute infiltrates. White count was normal. Hemoglobin and hematocrit were noted. Arterial blood gas; pH of 7.35, PaCO2 of 49, pO2 of 81 on 32% FiO2. INR was 1.2. Electrolytes were noted. BUN and creatinine were elevated. BNP was normal. Toxicology screen was positive for opiates. UA was noted. IMPRESSION: 1. Acute on chronic hypoxemic respiratory failure. 2. Acute exacerbation of chronic obstructive pulmonary disease. 3. Chest pain, suspect reflux. 4. Morbid obesity. 5. Tobacco dependence. PLAN: 1. Concur with current medical management. 2. Titrate FiO2 down. 3. The patient instructed on the importance of discontinuing her tobacco use. 4. Nebulized treatments. 5. Monitor blood sugars while on steroids. 6. Protonix for reflux. CHA RAZA MD DR: MICHELLE/millie JOB#: [id number] / [id number]
[2017-07-24] MEDS ORDERED: INSULIN ASPART 300 UNITS/3 ML INSULN.PEN SQ SCH (17:00)
[2017-07-24] MEDS ORDERED: NON FORMULARY ITEM (Ipratropium/Albuterol Sulfate (Combivent Respimat Inhal) 2 INH) IH SCH (17:00)
[2017-07-24] MEDS: CARVEDILOL 6.25 MG TABLET. PO SCH (17:18)
[2017-07-24] MEDS: INSULIN ASPART 300 UNITS/3 ML INSULN.PEN SQ SCH ×2 (17:21→17:22)
[2017-07-24 19:00] VITALS: BP 127/62
[2017-07-24] MEDS: buPROPion SR 150 MG TABLET.SA PO SCH (20:27)
[2017-07-24] MEDS ORDERED: TOPIRAMATE 25 MG TABLET. PO SCH (21:00)
[2017-07-24] MEDS ORDERED: INSULIN DETEMIR 300 UNITS/3 ML INSULN.PEN. SQ SCH ×2 (21:00)
[2017-07-24] MEDS ORDERED: MONTELUKAST SODIUM 10 MG TABLET. PO SCH (21:00)
[2017-07-24] MEDS ORDERED: TEMAZEPAM 7.5 MG CAPSULE PO PRN (21:45)
[2017-07-24 23:00] VITALS: BP 120/57
[2017-07-25 03:00] VITALS: BP 124/52
[2017-07-25 03:48] LABS: BASO % 0 % (0-3); EOS % 0 % (0-3); HEMATOCRIT 34.6 % (36.0-47.0); HEMOGLOBIN 11.5 g/dL (12.0-15.5); LYMPH % 17 % (24-48); MEAN CORPUSCULAR HEMOGLOBIN 30 pg (25-35); MEAN CORPUSCULAR HGB CONC 33 g/dL (31-37); MEAN CORPUSCULAR VOLUME 89 fL (79-100); MONO % 6 % (0-9); NEUT % 77 % (31-73); PLATELET COUNT 95 x10^3/uL (140-400); RED CELL DISTRIBUTION WIDTH 13.1 % (11.5-14.5); WHITE BLOOD COUNT 6.3 x10^3/uL (4.0-11.0)
[2017-07-25 04:05] LABS: CALCIUM 8.4 mg/dL (8.5-10.1); CREATININE 1.9 mg/dL (0.6-1.0); GFR 27.1; POTASSIUM 4.8 mmol/L (3.5-5.1)
[2017-07-25 07:00] VITALS: BP 113/66
[2017-07-25] MEDS ORDERED: PANTOPRAZOLE 40 MG TABLET.DR. PO SCH (07:30)
[2017-07-25] MEDS: IPRATRPIUM/ALBUTEROL 0.5/2.5MG 3 ML NEBU. NEB SCH ×2 (08:00→12:35)
[2017-07-25] MEDS ORDERED: ASPIRIN ENTERIC COATED 325 MG TABLET.DR. PO SCH (08:00)
[2017-07-25] MEDS ORDERED: INSULIN DETEMIR 300 UNITS/3 ML INSULN.PEN. SQ SCH (08:00)
[2017-07-25] MEDS: ALPRAZolam 1 MG TABLET PO PRN (08:18)
[2017-07-25] MEDS: CARVEDILOL 6.25 MG TABLET. PO SCH (08:19)
[2017-07-25] MEDS: buPROPion SR 150 MG TABLET.SA PO SCH (08:22)
[2017-07-25] MEDS: FUROSEMIDE 40 MG TABLET. PO SCH (08:23)
[2017-07-25] MEDS: ASPIRIN CHEWABLE 81 MG TABLET. PO SCH (08:23)
[2017-07-25] MEDS: tiZANidine 4 MG TABLET. PO SCH (08:24)
[2017-07-25] MEDS: INSULIN ASPART 300 UNITS/3 ML INSULN.PEN SQ SCH ×4 (08:33→12:34)
[2017-07-25] MEDS ORDERED: SPIRONOLACTONE 25 MG TABLET PO SCH (09:00)
[2017-07-25] MEDS ORDERED: POTASSIUM CHLORIDE 20 MEQ TABLET.ER. PO SCH (09:00)
[2017-07-25 11:00] VITALS: BP 105/38
--- NOTE | 2017-07-25 18:16 | DS ---
DATE OF DISCHARGE: 07/25/2017 CHIEF COMPLAINT: Shortness of breath. HOSPITAL COURSE: The patient is a 57-year-old obese woman with O2 dependent COPD and noncompliance with meds who presented to the Emergency Room with increased shortness of breath. She was diagnosed with upper respiratory infection and COPD exacerbation and admitted for steroids and nebulizers. She improved very quickly and was insistent on returning to home as she felt she could handle COPD exacerbations better at home, having experienced these frequently in the past. PHYSICAL EXAMINATION: VITAL SIGNS: Showed a blood pressure of 113/66, heart rate of 90 and respiratory rate at 18. She is afebrile. GENERAL: This is a 57-year-old morbidly obese woman, alert and oriented, no acute distress, flat affect, lethargic. LUNGS: Clear bilaterally. HEART: Regular rate and rhythm. ABDOMEN: Has positive bowel sounds. EXTREMITIES: Show no edema. DISCHARGE DIAGNOSIS: Chronic obstructive pulmonary disease exacerbation. DISCHARGE DISPOSITION: To home. DISCHARGE CONDITION: Improved. DISCHARGE MEDICATIONS: Please refer to MAR. DISCHARGE INSTRUCTIONS: The patient will follow up with PCP in 1 week. JASMINE MILLER MD DR: UR/nts JOB#: [id number] / [id number] KIRBY Menon MD MTDD
== END 2017-07-25 13:15 | disposition home or self-care (01) | DRG 189 ==
LOC: ER 07:12 → 5 SOUTH 08:30
PROVIDERS: ADMIT Internal Medicine Hematology & Oncology; ATTEND Internal Medicine Hematology & Oncology
DX: J96.21 Acute and chronic respiratory failure with hypoxia (principal); E11.22 Type 2 diabetes mellitus with diabetic chronic kidney disease; I50.9 Heart failure, unspecified; Z68.41 Body mass index [BMI] 40.0-44.9, adult; J44.1 Chronic obstructive pulmonary disease with (acute) exacerbation; E66.01 Morbid (severe) obesity due to excess calories; K21.9 Gastro-esophageal reflux disease without esophagitis; N18.9 Chronic kidney disease, unspecified; Z83.3 Family history of diabetes mellitus; Z90.710 Acquired absence of both cervix and uterus; Z91.14 Patient's other noncompliance with medication regimen; Z99.81 Dependence on supplemental oxygen; F11.10 Opioid abuse, uncomplicated; F41.9 Anxiety disorder, unspecified; G89.29 Other chronic pain; M19.90 Unspecified osteoarthritis, unspecified site; M48.00 Spinal stenosis, site unspecified; F31.9 Bipolar disorder, unspecified; Z88.2 Allergy status to sulfonamides; Z88.8 Allergy status to other drugs, medicaments and biological substances; Z88.5 Allergy status to narcotic agent; Z88.0 Allergy status to penicillin; Z91.013 Allergy to seafood; F17.200 Nicotine dependence, unspecified, uncomplicated
CPT/HCPCS: 36415; 36600; 51701; 71010; 80048; 80076; 80307; 81001; 82553; 82805; 82962; 83735; 83880; 84484; 85025; 85610; 93005; 94250; 94640; 94760; 96365; 96366; 96375; J0456; J1815; J2930; J7620; 99285-25; G0479

== ENCOUNTER → 2017-11-11 | Outpatient (CLI) | payer OTHER | END | disposition home or self-care (01) | LOC: KCIC MAMMO 11:11 | DX: Z12.31 Encounter for screening mammogram for malignant neoplasm of breast (principal) | CPT/HCPCS: 77067 ==

== ENCOUNTER 2018-08-19 11:23 | Inpatient (IN) | payer OTHER ==
[2018-08-19] VITALS (14 sets, daily range): BP systolic 92–153; BP diastolic 40–80
[~2018-08-19] VITALS: Ht 167.6 cm; Wt 124.5 kg
[2018-08-19] MEDS ORDERED: IV NORMAL SALINE 1000ML BAG 1,000 ML IV SCH (11:37)
--- NOTE | 2018-08-19 11:50 | EKG ---
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 MILD ST ELEVATION, IN AVR Electronically Signed On 08-21-2018 15:16:11 [employer] by Vince Aldrich MD
[2018-08-19 11:56] LABS: BASO % 1 % (0-3); EOS # 0.2 x10^3/uL (0.0-0.7); EOS % 4 % (0-3); HEMATOCRIT 33.8 % (36.0-47.0); LYMPH # 1.2 x10^3/uL (1.0-4.8); LYMPH % 26 % (24-48); MEAN CORPUSCULAR HEMOGLOBIN 28 pg (25-35); MEAN CORPUSCULAR HGB CONC 33 g/dL (31-37); MEAN CORPUSCULAR VOLUME 85 fL (79-100); MONO # 0.3 x10^3/uL (0.0-1.1); MONO % 6 % (0-9); NEUT # 2.9 x10^3uL (1.8-7.7); NEUT % 63 % (31-73); PLATELET COUNT 109 x10^3/uL (140-400); RED BLOOD COUNT 3.99 x10^6/uL (3.50-5.40); RED CELL DISTRIBUTION WIDTH 14.6 % (11.5-14.5); WHITE BLOOD COUNT 4.6 x10^3/uL (4.0-11.0)
[2018-08-19 12:04] LABS: PROTHROMBIN TIME PATIENT 14.1 SEC (11.7-14.0)
--- NOTE | 2018-08-19 12:07 | RAD ---
EXAM: CHEST 1 VIEW History: Shortness of breath COMPARISON: 07/24/2017 TECHNIQUE: Single portable radiograph of the chest FINDINGS: The cardiac silhouette is unremarkable. The lungs are clear bilaterally. The costophrenic sulci are clear and well demarcated. IMPRESSION: No radiographic evidence of an acute cardiopulmonary process. Electronically signed by: Angel Hayes MD (08/19/2018 12:04 PM) [facility]
[2018-08-19 12:10] LABS: CALCIUM 8.3 mg/dL (8.5-10.1); CREATININE 1.7 mg/dL (0.6-1.0); GFR 30.7; POTASSIUM 4.9 mmol/L (3.5-5.1)
[2018-08-19 12:10] LABS: BILIRUBIN,URINE SMALL (NEG); CLARITY,URINE CLEAR; COLOR,URINE YELLOW; NITRITE,URINE NEGATIVE (NEG); PROTEIN,URINE NEGATIVE (NEG-TRACE)
[2018-08-19 12:14] LABS: ALBUMIN 3.2 g/dL (3.4-5.0); ALBUMIN/GLOBULIN RATIO 0.8 (1.0-1.7); MAGNESIUM 1.3 mg/dL (1.8-2.4); TOTAL BILIRUBIN 0.4 mg/dL (0.2-1.0); TOTAL PROTEIN 7.2 g/dL (6.4-8.2)
[2018-08-19] MEDS ORDERED: IPRATRPIUM/ALBUTEROL 0.5/2.5MG 3 ML NEBU. NEB ONE (12:15)
[2018-08-19 12:18] LABS: AMPHETAMINE/METHAMPHETAMINE NEG (NEG); BACTERIA,URINE FEW /HPF (0-FEW); BARBITURATES NEG (NEG); BENZODIAZEPINES POS (NEG); CANNABINOIDS NEG (NEG); COCAINE NEG (NEG); METHADONE NEG (NEG); OPIATES POS (NEG); PHENCYCLIDINE NEG (NEG); RBC,URINE OCC /HPF (0-2); SQUAMOUS EPITHELIAL CELL,UR MOD /LPF
[2018-08-19 12:23] LABS: CREATINE KINASE 36 U/L (26-192)
--- NOTE | 2018-08-19 12:57 | PHYS DOC ---
Past Medical History Past Medical History: Anxiety, Asthma, Bipolar, Bronchitis, COPD, Depression, Diabetes-Type II, GERD Additional Past Medical Histor: CHRONIC BACK PAIN,spinal stenosis,edema, morbid obesity, narcotic abuse Past Surgical History: Hysterectomy, Other Additional Past Surgical Histo: Back surgery Alcohol Use: None Drug Use: None Adult General Chief Complaint Chief Complaint: HYPERGLYCEMIA HPI HPI Patient is a 58 year old female was brought here by EMS for evaluation of confusion. Patient called EMS, due to patient was acting very sleepy. He checked her blood sugar and it was high, he went ahead, gave her 30 units of insulin at home prior to calling EMS. Patient had history of COPD, on 3 L of oxygen at home. Patient stated that she ran out of her oxygen, not sure how long. Patient is also on insulin or diabetic. Review of Systems Review of Systems Constitutional: Denies fever or chills,Positive for generalized weakness. Eyes: Denies change in visual acuity, redness, or eye pain [] HENT: Denies nasal congestion or sore throat [] Respiratory: Denies cough, positive for shortness of air. Cardiovascular: No additional information not addressed in HPI [] GI: Denies abdominal pain, nausea, vomiting, bloody stools or diarrhea [] : Denies dysuria or hematuria [] Musculoskeletal: Denies back pain or joint pain [] Integument: Denies rash or skin lesions [] Neurologic: Denies headache, focal weakness or sensory changes, positive for confusion, cannot think straight. Endocrine: Denies polyuria or polydipsia [] All other systems were reviewed and found to be within normal limits, except as documented in this note. Current Medications Current Medications Current Medications Medications (Trade) Dose Ordered Sig/Sunny Start Time Stop Time Status Last Admin Dose Admin Albuterol/ Ipratropium (Duoneb) 3 ml 1X ONCE 08/19/18 12:15 08/19/18 12:24 DC 08/19/18 12:36 3 ML Sodium Chloride 1,000 ml @ 1,000 mls/hr Q1H 08/19/18 11:37 08/19/18 12:36 DC 08/19/18 12:04 1,000 MLS/HR Allergies Allergies Allergies Coded Allergies Type Severity Reaction Last Updated Verified Fish Containing Products Allergy Intermediate Itching 10/15/15 Yes Penicillins Allergy Intermediate 02/04/14 Yes Sulfa (Sulfonamide Antibiotics) Allergy Intermediate 02/04/14 Yes codeine Allergy Intermediate 02/15/16 Yes morphine Allergy Intermediate Hives 02/15/16 Yes Physical Exam Physical Exam Constitutional: Well developed, well nourished, appeared lethargic and somnolent. HENT: Normocephalic, atraumatic, bilateral external ears normal, DRIED ORAL MUCOSA. Eyes: PERRLA, EOMI, conjunctiva normal, no discharge. [] Neck: Normal range of motion, no tenderness, supple, no stridor. [] Cardiovascular:Heart rate regular rhythm, no murmur [] Lungs & Thorax: decreased air movement in all lung pacheco. Abdomen: Bowel sounds normal, soft, no tenderness, no masses, no pulsatile masses. [] Skin: Warm, dry, no erythema, no rash. [] Back: No tenderness, no CVA tenderness. [] Extremities: No tenderness, no cyanosis, no clubbing, ROM intact, no edema. [] Neurologic: Patient is arousable, follow commands but very confused,observed to move all extremities. Psychologic: Affect normal, judgement normal, mood normal. [] Current Patient Data Vital Signs Vital Signs Date Time Temp Pulse Resp B/P (MAP) Pulse Ox O2 Delivery O2 Flow Rate FiO2 08/19/18 12:36 98 BiPAP/CPAP 08/19/18 11:23 97.6 66 18 177/73 (107) 3.0 97.6 Lab Values Laboratory Tests Test 08/19/18 11:26 08/19/18 11:30 08/19/18 11:53 08/19/18 12:00 Glucose (Fingerstick) 279 mg/dL (70-99) H White Blood Count 4.6 x10^3/uL (4.0-11.0) Red Blood Count 3.99 x10^6/uL (3.50-5.40) Hemoglobin 11.0 g/dL (12.0-15.5) L Hematocrit 33.8 % (36.0-47.0) L Mean Corpuscular Volume 85 fL (79-100) Mean Corpuscular Hemoglobin 28 pg (25-35) Mean Corpuscular Hemoglobin Concent 33 g/dL (31-37) Red Cell Distribution Width 14.6 % (11.5-14.5) H Platelet Count 109 x10^3/uL (140-400) L Neutrophils (%) (Auto) 63 % (31-73) Lymphocytes (%) (Auto) 26 % (24-48) Monocytes (%) (Auto) 6 % (0-9) Eosinophils (%) (Auto) 4 % (0-3) H Basophils (%) (Auto) 1 % (0-3) Neutrophils # (Auto) 2.9 x10^3uL (1.8-7.7) Lymphocytes # (Auto) 1.2 x10^3/uL (1.0-4.8) Monocytes # (Auto) 0.3 x10^3/uL (0.0-1.1) Eosinophils # (Auto) 0.2 x10^3/uL (0.0-0.7) Basophils # (Auto) 0.0 x10^3/uL (0.0-0.2) Prothrombin Time 14.1 SEC (11.7-14.0) H Prothrombin Time INR 1.1 (0.8-1.1) Sodium Level 142 mmol/L (136-145) Potassium Level 4.9 mmol/L (3.5-5.1) Chloride Level 104 mmol/L (98-107) Carbon Dioxide Level 33 mmol/L (21-32) H Anion Gap 5 (6-14) L Blood Urea Nitrogen 21 mg/dL (7-20) H Creatinine 1.7 mg/dL (0.6-1.0) H Estimated GFR (Cockcroft-Gault) 30.7 BUN/Creatinine Ratio 12 (6-20) Glucose Level 287 mg/dL (70-99) H Calcium Level 8.3 mg/dL (8.5-10.1) L Magnesium Level 1.3 mg/dL (1.8-2.4) L Total Bilirubin 0.4 mg/dL (0.2-1.0) Aspartate Amino Transferase (AST) 17 U/L (15-37) Alanine Aminotransferase (ALT) 16 U/L (14-59) Alkaline Phosphatase 95 U/L (46-116) Creatine Kinase 36 U/L (26-192) Creatine Kinase MB (Mass) 0.9 ng/mL (0.0-3.6) Creatine Kinase MB Relative Index % (0-4) Troponin I Quantitative < 0.017 ng/mL (0.000-0.055) TO-Mxa-S-Type Natriuretic Peptide 84 pg/mL (0-124) Total Protein 7.2 g/dL (6.4-8.2) Albumin 3.2 g/dL (3.4-5.0) L Albumin/Globulin Ratio 0.8 (1.0-1.7) L Lipase 85 U/L (73-393) Urine Collection Type U cath Urine Color Yellow Urine Clarity Clear Urine pH 6.0 Urine Specific [place] 1.025 Urine Protein Negative mg/dL (NEG-TRACE) Urine Glucose (UA) 500 mg/dL (NEG) Urine Ketones (Stick) Negative mg/dL (NEG) Urine Blood Negative (NEG) Urine Nitrite Negative (NEG) Urine Bilirubin Small (NEG) Urine Urobilinogen Dipstick 1.0 mg/dL (0.2 mg/dL) Urine Leukocyte Esterase Negative (NEG) Urine RBC Occ /HPF (0-2) Urine WBC 1-4 /HPF (0-4) Urine Squamous Epithelial Cells Mod /LPF Urine Bacteria Few /HPF (0-FEW) Urine Mucus Marked /LPF Urine Opiates Screen Pos (NEG) Urine Methadone Screen Neg (NEG) Urine Barbiturates Neg (NEG) Urine Phencyclidine Screen Neg (NEG) Urine Amphetamine/Methamphetamine Neg (NEG) Urine Benzodiazepines Screen Pos (NEG) Urine Cocaine Screen Neg (NEG) Urine Cannabinoids Screen Neg (NEG) Urine Ethyl Alcohol Neg (NEG) O2 Saturation 98 % (92-99) Arterial Blood pH 7.24 (7.35-7.45) L Arterial Blood pCO2 at Patient Temp 80 mmHg (35-46) *H Arterial Blood pO2 at Patient Temp 132 mmHg (65-108) H Arterial Blood HCO3 34 mmol/L (21-28) H Arterial Blood Base Excess 4 mmol/L (-3-3) H FiO2 32 Laboratory Tests 08/19/18 11:30 Laboratory Tests 08/19/18 11:30 EKG EKG [] Radiology/Procedures Radiology/Procedures [] Course & Med Decision Making Course & Med Decision Making Pertinent Labs and Imaging studies reviewed. (See chart for details) [] Dragon Disclaimer Dragon Disclaimer This electronic medical record was generated, in whole or in part, using a voice recognition dictation system. Departure Departure Impression: Primary Impression: COPD exacerbation Additional Impressions: Hyperglycemia Hypercapnic respiratory failure Disposition: 09 ADMITTED INPATIENT Admitting Physician: Other (Dr. Peterson) Referrals: KIRBY GIRON Jr, MD (PCP) Problem Qualifiers MARIA DE JESUS STRICKLAND DO Aug 19, 2018 12:57
[2018-08-19] MEDS ORDERED: ONDANSETRON PF 4 MG/2 ML VIAL. IV PRN ×2 (13:15→15:00)
[2018-08-19 13:35] LABS: BASE EXCESS ABG 4 mmol/L (-3-3); FIO2 ABG 32; HCO3 ABG 34 mmol/L (21-28); PCO2 ABG 80 mmHg (35-46); PO2 ABG 132 mmHg (65-108); SAT O2 ABG 98 % (92-99)
[2018-08-19] MEDS ORDERED: DEXTROSE 50% 25 GM / 50ML DISP.SYRIN. IV PRN (15:00)
[2018-08-19] MEDS ORDERED: 0.9 % SODIUM CHLORIDE 10 ML DISP.SYRIN. IV PRN (15:00)
[2018-08-19] MEDS ORDERED: LACTULOSE 20 GM/30 ML SOLUTION. PO PRN (15:00)
--- NOTE | 2018-08-19 15:25 | PDOC1 ---
History and Physical Date of Admission Date of Admission DATE: 08/19/18 TIME: 14:54 Identification/Chief Complaint Chief Complaint Encephalopathy Source Source: Caregiver, Chart review, Patient History of Present Illness History of Present Illness 58 yo F w/ PMHx HTN, DM, chronic benzo dependence, COPD on 3L NCO2 at home was brought here by EMS for evaluation of confusion at home per her . He checked her blood glucose and the meter read high (>500), gave her 30 units of lispro insulin. In ED she was difficult to arouse, ABG 7.24/80/130, started on BIPAP. Hb 11, no leukocytosis. Patient had history of COPD, on 3 L of oxygen at home. Patient and her stated that she ran out of her oxygen, not sure how long. She has 2 other COPD related admissions and has been admitted for hypercapnea in the past as well. Past Medical History Cardiovascular: CHF, HTN Pulmonary: Asthma, COPD CENTRAL NERVOUS SYSTEM: Other GI: GERD Heme/Onc: No pertinent hx Hepatobiliary: No pertinent hx Psych: Anxiety, Depression Musculoskeletal: Osteoarthritis, Other Rheumatologic: No pertinent hx Infectious disease: No pertinent hx Renal/: Chronic renal insuff, Urinary Incontinence Endocrine: No pertinent hx Past Surgical History Past Surgical History: Tonsillectomy, Hysterectomy, Other Family History Family History: Diabetes Social History ALCOHOL: none Drugs: None Current Problem List Problem List Problems Medical Problems: (1) Hypercapnic respiratory failure Status: Acute (2) Hyperglycemia Status: Acute Current Medications Current Medications Current Medications Sodium Chloride 1,000 ml @ 1,000 mls/hr Q1H IV Last administered on 08/19/18at 12:04; Start 08/19/18 at 11:37; Stop 08/19/18 at 12:36; Status DC Albuterol/ Ipratropium (Duoneb) 3 ml 1X ONCE NEB Last administered on at 12:36; Start 08/19/18 at 12:15; Stop 08/19/18 at 12:24; Status DC Ondansetron HCl (Zofran) 4 mg PRN Q8HRS PRN IV NAUSEA/VOMITING; Start 08/19/18 at 13:15; Stop 08/20/18 at 13:14 Active Scripts Active Levemir Flextouch (Insulin Detemir) 100 Unit/1 Ml Insuln.pen 18 Units SQ QHS Novolog Flexpen (Insulin Aspart) 100 Unit/1 Ml Insuln.pen 10 Units SQ TIDAC Topamax (Topiramate) 25 Mg Tablet 25 Mg PO HS Combivent Respimat Inhal (Ipratropium/Albuterol Sulfate) 4 Gm Aer.w.adap 2 Inh IH QID Lasix (Furosemide) 40 Mg Tablet 1 Tab PO DAILY Aldactone (Spironolactone) 25 Mg Tablet 25 Mg PO DAILY Klor-Con M20 (Potassium Chloride) 20 Meq Tablet.er 40 Meq PO DAILY Nystop (Nystatin) 1 Omid Omid 1 Omid TP BID PRN [Aspirin] 325 MG Tablet.dr 325 Mg PO DAILYWBKFT Reported Wellbutrin Sr (Bupropion Hcl) 150 Mg Tablet.er 1 Tab PO BID Aspirin 81 Mg Tab.chew 1 Tab PO DAILY Montelukast Sodium Tablet (Montelukast Sodium) 10 Mg Tablet 10 Mg PO HS Tizanidine Hcl 4 Mg Tablet 1 Tab PO BID Carvedilol 6.25 Mg Tablet 6.25 Mg PO BIDWMEALS Pantoprazole Sodium 40 Mg Tablet.dr 40 Mg PO DAILY Alprazolam 1 Mg Tab.rapdis 1 Mg PO Q4HRS PRN Allergies Allergies: Coded Allergies: Fish Containing Products (Verified Allergy, Intermediate, Itching, ) allergic to fish itching Penicillins (Verified Allergy, Intermediate, 02/04/14) Sulfa (Sulfonamide Antibiotics) (Verified Allergy, Intermediate, 02/04/14) codeine (Verified Allergy, Intermediate, 02/15/16) Has tolerated oxycodone morphine (Verified Allergy, Intermediate, Hives, 02/15/16) Has tolerated oxycodone ROS General: YES: Fatigue, Malaise; No: Chills, Night Sweats, Appetite, Other PSYCHOLOGICAL ROS: YES: Anxiety, Disorientation; No: Behavioral Disorder, Concentration difficultie, Decreased libido, Depression, Hallucinations, Hostility, Irritablity, Memory difficulties, Mood Swings, Obsessive thoughts, Physical abuse, Sexual abuse, Sleep disturbances, Suicidal ideation, Other Eyes: No Blurry vision, No Decreased vision, No Double vision, No Dry eyes, No Excessive tearing, No Eye Pain, No Itchy Eyes, No Loss of vision, No Photophobia , No Scotomata, No Uses contacts, No Uses glasses, No Other HEENT: No: Heacaches, Visual Changes, Hearing change, Nasal congestion, Nasal discharge, Oral lesions, Sinus pain, Sore Throat, Epistaxis, Sneezing, Snoring, Tinnitus, Vertigo, Vocal changes, Other ALLERGY AND IMMUNOLOGY: No: Hives, Insect Bite Sensitivity, Itchy/Watery Eyes, Nasal Congestion, Post Nasal Drip, Seasonal Allergies, Other Hematological and Lymphatic: No: Bleeding Problems, Blood Clots, Blood Transfusions, Brusing, Night Sweats, Pallor, Swollen Lymph Nodes, Other ENDOCRINE: No: Breast Changes, Galactorrhea, Hair Pattern Changes, Hot Flashes , Malaise/lethargy, Mood Swings, Palpitations, Polydipsia/polyuria, Skin Changes , Temperature Intolerance, Unexpected Weight Changes, Other Breast: No New/Changing Breast Lumps, No Nipple changes, No Nipple discharge, No Other Respiratory: YES: Cough, Shortness of breath, Tachypnea, Wheezing; No: Hemoptysis, Orthopnea, Pleuritic Pain, SOB with excertion, Sputum Changes , Stridor, Other Cardiovascular: yes Palpitations, yes Orthopnea; No Chest Pain, No Paroxysmal Noc. Dyspnea, No Edema, No Lt Headedness, No Other Gastrointestinal: No Nausea, No Vomiting, No Abdominal Pain, No Diarrhea, No Constipation, No Melena, No Hematochezia, No Other Genitourinary: No Dysuria, No Frequency, No Incontinence, No Hematuria, No Retention, No Discharge, No Urgency, No Pain, No Flank Pain, No Other, No , No , No , No , No , No , No Musculoskeletal: Yes Gait Disturbance, Yes Muscular Weakness; No Joint Pain, No Joint Stiffness, No Joint Swelling, No Muscle Pain, No Pain In:, No Swelling In:, No Other Neurological: Yes Behavorial Changes, Yes Confusion, Yes Dizziness, Yes Gait Disturbance, Yes Memory Loss; No Bowel/Bladder ControlChng, No Headaches, No Impaired Coord/balance, No Numbness/Tingling, No Seizures, No Speech Problems, No Tremors, No Visual Changes, No Weakness, No Other Skin: Yes Dry Skin; No Eczema, No Hair Changes, No Lumps, No Mole Changes, No Mottling, No Nail Changes, No Pruritus, No Rash, No Skin Lesion Changes, No Other, No Acne Physical Exam General: Cooperative, mild distress, Other (Confused, drowsy, easily aroused) HEENT: Atraumatic, PERRLA, EOMI, Mucous membr. moist/pink Lungs: Other (Scattered wheezing) Heart: S1S2, RRR, no murmurs Breasts: Not examined Abdomen: Normal bowel sounds, Soft, No tenderness, No hepatosplenomegaly, No masses Extremities: No clubbing, No cyanosis, Normal pulses, No tenderness/swelling, Other (Scant edema, covered in leaves and feces) Skin: No rashes, No breakdown, No significant lesion Neuro: Strength at 5/5 X4 ext, Normal tone, Sensation intact, Cranial nerves 3- 12 NL, Reflexes 2+ Psych/Mental Status: Mood NL Vitals Vitals Vital Signs Date Time Temp Pulse Resp B/P (MAP) Pulse Ox O2 Delivery O2 Flow Rate FiO2 08/19/18 13:00 66 20 108/50 (69) 100 BiPAP/CPAP 08/19/18 12:30 3.0 08/19/18 11:23 97.6 97.6 Labs Labs Laboratory Tests Test 08/19/18 11:26 08/19/18 11:30 08/19/18 11:53 08/19/18 12:00 Glucose (Fingerstick) 279 mg/dL (70-99) White Blood Count 4.6 x10^3/uL (4.0-11.0) Red Blood Count 3.99 x10^6/uL (3.50-5.40) Hemoglobin 11.0 g/dL (12.0-15.5) Hematocrit 33.8 % (36.0-47.0) Mean Corpuscular Volume 85 fL (79-100) Mean Corpuscular Hemoglobin 28 pg (25-35) Mean Corpuscular Hemoglobin Concent 33 g/dL (31-37) Red Cell Distribution Width 14.6 % (11.5-14.5) Platelet Count 109 x10^3/uL (140-400) Neutrophils (%) (Auto) 63 % (31-73) Lymphocytes (%) (Auto) 26 % (24-48) Monocytes (%) (Auto) 6 % (0-9) Eosinophils (%) (Auto) 4 % (0-3) Basophils (%) (Auto) 1 % (0-3) Neutrophils # (Auto) 2.9 x10^3uL (1.8-7.7) Lymphocytes # (Auto) 1.2 x10^3/uL (1.0-4.8) Monocytes # (Auto) 0.3 x10^3/uL (0.0-1.1) Eosinophils # (Auto) 0.2 x10^3/uL (0.0-0.7) Basophils # (Auto) 0.0 x10^3/uL (0.0-0.2) Prothrombin Time 14.1 SEC (11.7-14.0) Prothromb Time International Ratio 1.1 (0.8-1.1) Sodium Level 142 mmol/L (136-145) Potassium Level 4.9 mmol/L (3.5-5.1) Chloride Level 104 mmol/L (98-107) Carbon Dioxide Level 33 mmol/L (21-32) Anion Gap 5 (6-14) Blood Urea Nitrogen 21 mg/dL (7-20) Creatinine 1.7 mg/dL (0.6-1.0) Estimated GFR (Cockcroft-Gault) 30.7 BUN/Creatinine Ratio 12 (6-20) Glucose Level 287 mg/dL (70-99) Calcium Level 8.3 mg/dL (8.5-10.1) Magnesium Level 1.3 mg/dL (1.8-2.4) Total Bilirubin 0.4 mg/dL (0.2-1.0) Aspartate Amino Transf (AST/SGOT) 17 U/L (15-37) Alanine Aminotransferase (ALT/SGPT) 16 U/L (14-59) Alkaline Phosphatase 95 U/L (46-116) Creatine Kinase 36 U/L (26-192) Creatine Kinase MB (Mass) 0.9 ng/mL (0.0-3.6) Creatine Kinase MB Relative Index % (0-4) Troponin I Quantitative < 0.017 ng/mL (0.000-0.055) [id number]-Type Natriuretic Peptide 84 pg/mL (0-124) Total Protein 7.2 g/dL (6.4-8.2) Albumin 3.2 g/dL (3.4-5.0) Albumin/Globulin Ratio 0.8 (1.0-1.7) Lipase 85 U/L (73-393) Urine Collection Type U cath Urine Color Yellow Urine Clarity Clear Urine pH 6.0 Urine Specific [place] 1.025 Urine Protein Negative mg/dL (NEG-TRACE) Urine Glucose (UA) 500 mg/dL (NEG) Urine Ketones (Stick) Negative mg/dL (NEG) Urine Blood Negative (NEG) Urine Nitrite Negative (NEG) Urine Bilirubin Small (NEG) Urine Urobilinogen Dipstick 1.0 mg/dL (0.2 mg/dL) Urine Leukocyte Esterase Negative (NEG) Urine RBC Occ /HPF (0-2) Urine WBC 1-4 /HPF (0-4) Urine Squamous Epithelial Cells Mod /LPF Urine Bacteria Few /HPF (0-FEW) Urine Mucus Marked /LPF Urine Opiates Screen Pos (NEG) Urine Methadone Screen Neg (NEG) Urine Barbiturates Neg (NEG) Urine Phencyclidine Screen Neg (NEG) Urine Amphetamine/Methamphetamine Neg (NEG) Urine Benzodiazepines Screen Pos (NEG) Urine Cocaine Screen Neg (NEG) Urine Cannabinoids Screen Neg (NEG) Urine Ethyl Alcohol Neg (NEG) O2 Saturation 98 % (92-99) Arterial Blood pH 7.24 (7.35-7.45) Arterial Blood pCO2 at Patient Temp 80 mmHg (35-46) Arterial Blood pO2 at Patient Temp 132 mmHg (65-108) Arterial Blood HCO3 34 mmol/L (21-28) Arterial Blood Base Excess 4 mmol/L (-3-3) FiO2 32 Laboratory Tests Test 08/19/18 11:26 08/19/18 11:30 08/19/18 11:53 08/19/18 12:00 Glucose (Fingerstick) 279 mg/dL (70-99) White Blood Count 4.6 x10^3/uL (4.0-11.0) Red Blood Count 3.99 x10^6/uL (3.50-5.40) Hemoglobin 11.0 g/dL (12.0-15.5) Hematocrit 33.8 % (36.0-47.0) Mean Corpuscular Volume 85 fL (79-100) Mean Corpuscular Hemoglobin 28 pg (25-35) Mean Corpuscular Hemoglobin Concent 33 g/dL (31-37) Red Cell Distribution Width 14.6 % (11.5-14.5) Platelet Count 109 x10^3/uL (140-400) Neutrophils (%) (Auto) 63 % (31-73) Lymphocytes (%) (Auto) 26 % (24-48) Monocytes (%) (Auto) 6 % (0-9) Eosinophils (%) (Auto) 4 % (0-3) Basophils (%) (Auto) 1 % (0-3) Neutrophils # (Auto) 2.9 x10^3uL (1.8-7.7) Lymphocytes # (Auto) 1.2 x10^3/uL (1.0-4.8) Monocytes # (Auto) 0.3 x10^3/uL (0.0-1.1) Eosinophils # (Auto) 0.2 x10^3/uL (0.0-0.7) Basophils # (Auto) 0.0 x10^3/uL (0.0-0.2) Prothrombin Time 14.1 SEC (11.7-14.0) Prothromb Time International Ratio 1.1 (0.8-1.1) Sodium Level 142 mmol/L (136-145) Potassium Level 4.9 mmol/L (3.5-5.1) Chloride Level 104 mmol/L (98-107) Carbon Dioxide Level 33 mmol/L (21-32) Anion Gap 5 (6-14) Blood Urea Nitrogen 21 mg/dL (7-20) Creatinine 1.7 mg/dL (0.6-1.0) Estimated GFR (Cockcroft-Gault) 30.7 BUN/Creatinine Ratio 12 (6-20) Glucose Level 287 mg/dL (70-99) Calcium Level 8.3 mg/dL (8.5-10.1) Magnesium Level 1.3 mg/dL (1.8-2.4) Total Bilirubin 0.4 mg/dL (0.2-1.0) Aspartate Amino Transf (AST/SGOT) 17 U/L (15-37) Alanine Aminotransferase (ALT/SGPT) 16 U/L (14-59) Alkaline Phosphatase 95 U/L (46-116) Creatine Kinase 36 U/L (26-192) Creatine Kinase MB (Mass) 0.9 ng/mL (0.0-3.6) Creatine Kinase MB Relative Index % (0-4) Troponin I Quantitative < 0.017 ng/mL (0.000-0.055) [id number]-Type Natriuretic Peptide 84 pg/mL (0-124) Total Protein 7.2 g/dL (6.4-8.2) Albumin 3.2 g/dL (3.4-5.0) Albumin/Globulin Ratio 0.8 (1.0-1.7) Lipase 85 U/L (73-393) Urine Collection Type U cath Urine Color Yellow Urine Clarity Clear Urine pH 6.0 Urine Specific [place] 1.025 Urine Protein Negative mg/dL (NEG-TRACE) Urine Glucose (UA) 500 mg/dL (NEG) Urine Ketones (Stick) Negative mg/dL (NEG) Urine Blood Negative (NEG) Urine Nitrite Negative (NEG) Urine Bilirubin Small (NEG) Urine Urobilinogen Dipstick 1.0 mg/dL (0.2 mg/dL) Urine Leukocyte Esterase Negative (NEG) Urine RBC Occ /HPF (0-2) Urine WBC 1-4 /HPF (0-4) Urine Squamous Epithelial Cells Mod /LPF Urine Bacteria Few /HPF (0-FEW) Urine Mucus Marked /LPF Urine Opiates Screen Pos (NEG) Urine Methadone Screen Neg (NEG) Urine Barbiturates Neg (NEG) Urine Phencyclidine Screen Neg (NEG) Urine Amphetamine/Methamphetamine Neg (NEG) Urine Benzodiazepines Screen Pos (NEG) Urine Cocaine Screen Neg (NEG) Urine Cannabinoids Screen Neg (NEG) Urine Ethyl Alcohol Neg (NEG) O2 Saturation 98 % (92-99) Arterial Blood pH 7.24 (7.35-7.45) Arterial Blood pCO2 at Patient Temp 80 mmHg (35-46) Arterial Blood pO2 at Patient Temp 132 mmHg (65-108) Arterial Blood HCO3 34 mmol/L (21-28) Arterial Blood Base Excess 4 mmol/L (-3-3) FiO2 32 VTE Prophylaxis Ordered VTE Prophylaxis Devices: No VTE Pharmacological Prophylaxi: Yes Assessment/Plan Assessment/Plan A/P: Acute encephalopathy - likely CO2 narcosis, will hold opioids and benzos for now as well 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 hypoglycemia protocol Acute renal failure - likely vasomotor nephropathy 2/2 her prolonged confused state not eating well HTN - Will monitor, restart meds FEN - NPO, bedside swallow, can give ADA diet when mentating PPX - Heparin DNR ICU for BIPAP, seems she may need this frequently, in for at least 2 midnights RUSSEL MOREJON MD Aug 19, 2018 15:25
[2018-08-19 15:38] LABS: BASE EXCESS ABG 3 mmol/L (-3-3); HCO3 ABG 30 mmol/L (21-28); PO2 ABG 67 mmHg (65-108); SAT O2 ABG 91 % (92-99)
[2018-08-19] MEDS: IPRATRPIUM/ALBUTEROL 0.5/2.5MG 3 ML NEBU. NEB SCH ×2 (16:00→20:11)
[2018-08-19 16:21] LABS: PCO2 ABG 60 mmHg (35-46)
[2018-08-19] MEDS: CARVEDILOL 6.25 MG TABLET. PO SCH (16:26)
[2018-08-19 16:30] LABS: FIO2 ABG 26
[2018-08-19] MEDS: NYSTATIN TOPICAL POWDER 15GM BOTTLE. TP PRN (16:36)
[2018-08-19] MEDS: INSULIN LISPRO 300 UNITS/3 ML INSULN.PEN. SQ SCH ×2 (16:40→16:41)
[2018-08-19] MEDS ORDERED: NON FORMULARY ITEM (Ipratropium/Albuterol Sulfate (Combivent Respimat Inhal) 2 INH) IH SCH (17:00)
[2018-08-19] MEDS: MONTELUKAST SODIUM 10 MG TABLET. PO SCH (20:50)
[2018-08-19] MEDS: SENNOSIDES/DOCUSATE 8.6/50MG TABLET. PO SCH (20:50)
[2018-08-19] MEDS: buPROPion SR 150 MG TABLET.SA PO SCH (20:50)
[2018-08-19] MEDS: HEPARIN for SUB-Q USE 5,000 UNIT/ML VIAL. SQ SCH (20:54)
[2018-08-19] MEDS ORDERED: guaiFENesin ORAL 200 MG/10 ML LIQUID. PO PRN (21:00)
[2018-08-19] MEDS: ALPRAZolam 0.25 MG TABLET PO PRN (22:28)
[2018-08-19] MEDS: traMADol 50 MG TABLET PO PRN (22:29)
[2018-08-19] MEDS: INSULIN GLARGINE 300 UNITS/3 ML INSULN.PEN. SQ SCH (22:30)
[2018-08-20] VITALS (22 sets, daily range): BP systolic 101–163; BP diastolic 41–68
--- NOTE | 2018-08-20 07:29 | PDOC ---
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 He checked her blood glucose and the meter read high (>500), gave her 30 units of lispro insulin. In ED she was difficult to arouse, ABG 7.24/80/130, started on BIPAP. Hb 11, no leukocytosis. Patient had history of COPD, on 3 L of oxygen at home. Patient and her stated that she ran out of her oxygen, not sure how long. Improved with BIPAP yesterday and overnight, still drowsy this morning. She is asking to eat and go home, advised we need to ensure she has home O2 as that was the reason she arrived. Denies cough, no CP, no pain complaints. Mildly anxious. A/P: Acute encephalopathy - likely CO2 narcosis, will hold opioids and benzos for now as well. 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 hypoglycemia protocol Acute renal failure - likely vasomotor nephropathy 2/2 her prolonged confused state not eating well, repeat BMP today HTN - Will monitor, restart meds FEN - Bedside swallow, can give ADA diet when mentating PPX - Heparin DNR ICU for BIPAP may be ok for the flood if pulm agrees, she is asking for D/c Vitals Vitals Vital Signs Date Time Temp Pulse Resp B/P (MAP) Pulse Ox O2 Delivery O2 Flow Rate FiO2 08/20/18 05:00 76 18 116/48 (70) 25 BiPAP/CPAP 08/20/18 04:00 2.0 08/20/18 04:00 98.1 98.1 Physical Exam General: Cooperative, mild distress, Other (Confused, drowsy, easily aroused) Lungs: Clear, Other Abdomen: Normal bowel sounds, Soft, No tenderness, No hepatosplenomegaly, No masses Extremities: No clubbing, No cyanosis, Normal pulses, No tenderness/swelling, Other (Scant edema, covered in leaves and feces) Skin: No rashes, No breakdown, No significant lesion Labs LABS Laboratory Tests Test 08/19/18 11:26 08/19/18 11:30 08/19/18 11:53 08/19/18 12:00 Glucose (Fingerstick) 279 mg/dL (70-99) White Blood Count 4.6 x10^3/uL (4.0-11.0) Red Blood Count 3.99 x10^6/uL (3.50-5.40) Hemoglobin 11.0 g/dL (12.0-15.5) Hematocrit 33.8 % (36.0-47.0) Mean Corpuscular Volume 85 fL (79-100) Mean Corpuscular Hemoglobin 28 pg (25-35) Mean Corpuscular Hemoglobin Concent 33 g/dL (31-37) Red Cell Distribution Width 14.6 % (11.5-14.5) Platelet Count 109 x10^3/uL (140-400) Neutrophils (%) (Auto) 63 % (31-73) Lymphocytes (%) (Auto) 26 % (24-48) Monocytes (%) (Auto) 6 % (0-9) Eosinophils (%) (Auto) 4 % (0-3) Basophils (%) (Auto) 1 % (0-3) Neutrophils # (Auto) 2.9 x10^3uL (1.8-7.7) Lymphocytes # (Auto) 1.2 x10^3/uL (1.0-4.8) Monocytes # (Auto) 0.3 x10^3/uL (0.0-1.1) Eosinophils # (Auto) 0.2 x10^3/uL (0.0-0.7) Basophils # (Auto) 0.0 x10^3/uL (0.0-0.2) Prothrombin Time 14.1 SEC (11.7-14.0) Prothromb Time International Ratio 1.1 (0.8-1.1) Sodium Level 142 mmol/L (136-145) Potassium Level 4.9 mmol/L (3.5-5.1) Chloride Level 104 mmol/L (98-107) Carbon Dioxide Level 33 mmol/L (21-32) Anion Gap 5 (6-14) Blood Urea Nitrogen 21 mg/dL (7-20) Creatinine 1.7 mg/dL (0.6-1.0) Estimated GFR (Cockcroft-Gault) 30.7 BUN/Creatinine Ratio 12 (6-20) Glucose Level 287 mg/dL (70-99) Calcium Level 8.3 mg/dL (8.5-10.1) Magnesium Level 1.3 mg/dL (1.8-2.4) Total Bilirubin 0.4 mg/dL (0.2-1.0) Aspartate Amino Transf (AST/SGOT) 17 U/L (15-37) Alanine Aminotransferase (ALT/SGPT) 16 U/L (14-59) Alkaline Phosphatase 95 U/L (46-116) Creatine Kinase 36 U/L (26-192) Creatine Kinase MB (Mass) 0.9 ng/mL (0.0-3.6) Creatine Kinase MB Relative Index % (0-4) Troponin I Quantitative < 0.017 ng/mL (0.000-0.055) YN-[id number]-Type Natriuretic Peptide 84 pg/mL (0-124) Total Protein 7.2 g/dL (6.4-8.2) Albumin 3.2 g/dL (3.4-5.0) Albumin/Globulin Ratio 0.8 (1.0-1.7) Lipase 85 U/L (73-393) Urine Collection Type U cath Urine Color Yellow Urine Clarity Clear Urine pH 6.0 Urine Specific [place] 1.025 Urine Protein Negative mg/dL (NEG-TRACE) Urine Glucose (UA) 500 mg/dL (NEG) Urine Ketones (Stick) Negative mg/dL (NEG) Urine Blood Negative (NEG) Urine Nitrite Negative (NEG) Urine Bilirubin Small (NEG) Urine Urobilinogen Dipstick 1.0 mg/dL (0.2 mg/dL) Urine Leukocyte Esterase Negative (NEG) Urine RBC Occ /HPF (0-2) Urine WBC 1-4 /HPF (0-4) Urine Squamous Epithelial Cells Mod /LPF Urine Bacteria Few /HPF (0-FEW) Urine Mucus Marked /LPF Urine Opiates Screen Pos (NEG) Urine Methadone Screen Neg (NEG) Urine Barbiturates Neg (NEG) Urine Phencyclidine Screen Neg (NEG) Urine Amphetamine/Methamphetamine Neg (NEG) Urine Benzodiazepines Screen Pos (NEG) Urine Cocaine Screen Neg (NEG) Urine Cannabinoids Screen Neg (NEG) Urine Ethyl Alcohol Neg (NEG) O2 Saturation 98 % (92-99) Arterial Blood pH 7.24 (7.35-7.45) Arterial Blood pCO2 at Patient Temp 80 mmHg (35-46) Arterial Blood pO2 at Patient Temp 132 mmHg (65-108) Arterial Blood HCO3 34 mmol/L (21-28) Arterial Blood Base Excess 4 mmol/L (-3-3) FiO2 32 Test 08/19/18 14:58 08/19/18 15:00 08/19/18 16:35 08/19/18 21:02 Glucose (Fingerstick) 168 mg/dL (70-99) 138 mg/dL (70-99) 132 mg/dL (70-99) O2 Saturation 91 % (92-99) Arterial Blood pH 7.32 (7.35-7.45) Arterial Blood pCO2 at Patient Temp 60 mmHg (35-46) Arterial Blood pO2 at Patient Temp 67 mmHg (65-108) Arterial Blood HCO3 30 mmol/L (21-28) Arterial Blood Base Excess 3 mmol/L (-3-3) FiO2 26 Assessment and Plan Assessmemt and Plan Problems Medical Problems: (1) Hypercapnic respiratory failure Status: Acute (2) Hyperglycemia Status: Acute Comment Review of Relevant I have reviewed the following items kylee (where applicable) has been applied. Labs Laboratory Tests Test 08/19/18 11:26 08/19/18 11:30 08/19/18 11:53 08/19/18 12:00 Glucose (Fingerstick) 279 mg/dL (70-99) White Blood Count 4.6 x10^3/uL (4.0-11.0) Red Blood Count 3.99 x10^6/uL (3.50-5.40) Hemoglobin 11.0 g/dL (12.0-15.5) Hematocrit 33.8 % (36.0-47.0) Mean Corpuscular Volume 85 fL (79-100) Mean Corpuscular Hemoglobin 28 pg (25-35) Mean Corpuscular Hemoglobin Concent 33 g/dL (31-37) Red Cell Distribution Width 14.6 % (11.5-14.5) Platelet Count 109 x10^3/uL (140-400) Neutrophils (%) (Auto) 63 % (31-73) Lymphocytes (%) (Auto) 26 % (24-48) Monocytes (%) (Auto) 6 % (0-9) Eosinophils (%) (Auto) 4 % (0-3) Basophils (%) (Auto) 1 % (0-3) Neutrophils # (Auto) 2.9 x10^3uL (1.8-7.7) Lymphocytes # (Auto) 1.2 x10^3/uL (1.0-4.8) Monocytes # (Auto) 0.3 x10^3/uL (0.0-1.1) Eosinophils # (Auto) 0.2 x10^3/uL (0.0-0.7) Basophils # (Auto) 0.0 x10^3/uL (0.0-0.2) Prothrombin Time 14.1 SEC (11.7-14.0) Prothromb Time International Ratio 1.1 (0.8-1.1) Sodium Level 142 mmol/L (136-145) Potassium Level 4.9 mmol/L (3.5-5.1) Chloride Level 104 mmol/L (98-107) Carbon Dioxide Level 33 mmol/L (21-32) Anion Gap 5 (6-14) Blood Urea Nitrogen 21 mg/dL (7-20) Creatinine 1.7 mg/dL (0.6-1.0) Estimated GFR (Cockcroft-Gault) 30.7 BUN/Creatinine Ratio 12 (6-20) Glucose Level 287 mg/dL (70-99) Calcium Level 8.3 mg/dL (8.5-10.1) Magnesium Level 1.3 mg/dL (1.8-2.4) Total Bilirubin 0.4 mg/dL (0.2-1.0) Aspartate Amino Transf (AST/SGOT) 17 U/L (15-37) Alanine Aminotransferase (ALT/SGPT) 16 U/L (14-59) Alkaline Phosphatase 95 U/L (46-116) Creatine Kinase 36 U/L (26-192) Creatine Kinase MB (Mass) 0.9 ng/mL (0.0-3.6) Creatine Kinase MB Relative Index % (0-4) Troponin I Quantitative < 0.017 ng/mL (0.000-0.055) PK-Baj-D-Type Natriuretic Peptide 84 pg/mL (0-124) Total Protein 7.2 g/dL (6.4-8.2) Albumin 3.2 g/dL (3.4-5.0) Albumin/Globulin Ratio 0.8 (1.0-1.7) Lipase 85 U/L (73-393) Urine Collection Type U cath Urine Color Yellow Urine Clarity Clear Urine pH 6.0 Urine Specific [place] 1.025 Urine Protein Negative mg/dL (NEG-TRACE) Urine Glucose (UA) 500 mg/dL (NEG) Urine Ketones (Stick) Negative mg/dL (NEG) Urine Blood Negative (NEG) Urine Nitrite Negative (NEG) Urine Bilirubin Small (NEG) Urine Urobilinogen Dipstick 1.0 mg/dL (0.2 mg/dL) Urine Leukocyte Esterase Negative (NEG) Urine RBC Occ /HPF (0-2) Urine WBC 1-4 /HPF (0-4) Urine Squamous Epithelial Cells Mod /LPF Urine Bacteria Few /HPF (0-FEW) Urine Mucus Marked /LPF Urine Opiates Screen Pos (NEG) Urine Methadone Screen Neg (NEG) Urine Barbiturates Neg (NEG) Urine Phencyclidine Screen Neg (NEG) Urine Amphetamine/Methamphetamine Neg (NEG) Urine Benzodiazepines Screen Pos (NEG) Urine Cocaine Screen Neg (NEG) Urine Cannabinoids Screen Neg (NEG) Urine Ethyl Alcohol Neg (NEG) O2 Saturation 98 % (92-99) Arterial Blood pH 7.24 (7.35-7.45) Arterial Blood pCO2 at Patient Temp 80 mmHg (35-46) Arterial Blood pO2 at Patient Temp 132 mmHg (65-108) Arterial Blood HCO3 34 mmol/L (21-28) Arterial Blood Base Excess 4 mmol/L (-3-3) FiO2 32 Test 08/19/18 14:58 08/19/18 15:00 08/19/18 16:35 08/19/18 21:02 Glucose (Fingerstick) 168 mg/dL (70-99) 138 mg/dL (70-99) 132 mg/dL (70-99) O2 Saturation 91 % (92-99) Arterial Blood pH 7.32 (7.35-7.45) Arterial Blood pCO2 at Patient Temp 60 mmHg (35-46) Arterial Blood pO2 at Patient Temp 67 mmHg (65-108) Arterial Blood HCO3 30 mmol/L (21-28) Arterial Blood Base Excess 3 mmol/L (-3-3) FiO2 26 Laboratory Tests Test 08/19/18 11:26 08/19/18 11:30 08/19/18 11:53 08/19/18 12:00 Glucose (Fingerstick) 279 mg/dL (70-99) White Blood Count 4.6 x10^3/uL (4.0-11.0) Red Blood Count 3.99 x10^6/uL (3.50-5.40) Hemoglobin 11.0 g/dL (12.0-15.5) Hematocrit 33.8 % (36.0-47.0) Mean Corpuscular Volume 85 fL (79-100) Mean Corpuscular Hemoglobin 28 pg (25-35) Mean Corpuscular Hemoglobin Concent 33 g/dL (31-37) Red Cell Distribution Width 14.6 % (11.5-14.5) Platelet Count 109 x10^3/uL (140-400) Neutrophils (%) (Auto) 63 % (31-73) Lymphocytes (%) (Auto) 26 % (24-48) Monocytes (%) (Auto) 6 % (0-9) Eosinophils (%) (Auto) 4 % (0-3) Basophils (%) (Auto) 1 % (0-3) Neutrophils # (Auto) 2.9 x10^3uL (1.8-7.7) Lymphocytes # (Auto) 1.2 x10^3/uL (1.0-4.8) Monocytes # (Auto) 0.3 x10^3/uL (0.0-1.1) Eosinophils # (Auto) 0.2 x10^3/uL (0.0-0.7) Basophils # (Auto) 0.0 x10^3/uL (0.0-0.2) Prothrombin Time 14.1 SEC (11.7-14.0) Prothromb Time International Ratio 1.1 (0.8-1.1) Sodium Level 142 mmol/L (136-145) Potassium Level 4.9 mmol/L (3.5-5.1) Chloride Level 104 mmol/L (98-107) Carbon Dioxide Level 33 mmol/L (21-32) Anion Gap 5 (6-14) Blood Urea Nitrogen 21 mg/dL (7-20) Creatinine 1.7 mg/dL (0.6-1.0) Estimated GFR (Cockcroft-Gault) 30.7 BUN/Creatinine Ratio 12 (6-20) Glucose Level 287 mg/dL (70-99) Calcium Level 8.3 mg/dL (8.5-10.1) Magnesium Level 1.3 mg/dL (1.8-2.4) Total Bilirubin 0.4 mg/dL (0.2-1.0) Aspartate Amino Transf (AST/SGOT) 17 U/L (15-37) Alanine Aminotransferase (ALT/SGPT) 16 U/L (14-59) Alkaline Phosphatase 95 U/L (46-116) Creatine Kinase 36 U/L (26-192) Creatine Kinase MB (Mass) 0.9 ng/mL (0.0-3.6) Creatine Kinase MB Relative Index % (0-4) Troponin I Quantitative < 0.017 ng/mL (0.000-0.055) [id number]-Bdq-U-Type Natriuretic Peptide 84 pg/mL (0-124) Total Protein 7.2 g/dL (6.4-8.2) Albumin 3.2 g/dL (3.4-5.0) Albumin/Globulin Ratio 0.8 (1.0-1.7) Lipase 85 U/L (73-393) Urine Collection Type U cath Urine Color Yellow Urine Clarity Clear Urine pH 6.0 Urine Specific [place] 1.025 Urine Protein Negative mg/dL (NEG-TRACE) Urine Glucose (UA) 500 mg/dL (NEG) Urine Ketones (Stick) Negative mg/dL (NEG) Urine Blood Negative (NEG) Urine Nitrite Negative (NEG) Urine Bilirubin Small (NEG) Urine Urobilinogen Dipstick 1.0 mg/dL (0.2 mg/dL) Urine Leukocyte Esterase Negative (NEG) Urine RBC Occ /HPF (0-2) Urine WBC 1-4 /HPF (0-4) Urine Squamous Epithelial Cells Mod /LPF Urine Bacteria Few /HPF (0-FEW) Urine Mucus Marked /LPF Urine Opiates Screen Pos (NEG) Urine Methadone Screen Neg (NEG) Urine Barbiturates Neg (NEG) Urine Phencyclidine Screen Neg (NEG) Urine Amphetamine/Methamphetamine Neg (NEG) Urine Benzodiazepines Screen Pos (NEG) Urine Cocaine Screen Neg (NEG) Urine Cannabinoids Screen Neg (NEG) Urine Ethyl Alcohol Neg (NEG) O2 Saturation 98 % (92-99) Arterial Blood pH 7.24 (7.35-7.45) Arterial Blood pCO2 at Patient Temp 80 mmHg (35-46) Arterial Blood pO2 at Patient Temp 132 mmHg (65-108) Arterial Blood HCO3 34 mmol/L (21-28) Arterial Blood Base Excess 4 mmol/L (-3-3) FiO2 32 Test 08/19/18 14:58 08/19/18 15:00 08/19/18 16:35 08/19/18 21:02 Glucose (Fingerstick) 168 mg/dL (70-99) 138 mg/dL (70-99) 132 mg/dL (70-99) O2 Saturation 91 % (92-99) Arterial Blood pH 7.32 (7.35-7.45) Arterial Blood pCO2 at Patient Temp 60 mmHg (35-46) Arterial Blood pO2 at Patient Temp 67 mmHg (65-108) Arterial Blood HCO3 30 mmol/L (21-28) Arterial Blood Base Excess 3 mmol/L (-3-3) FiO2 26 Medications Current Medications Sodium Chloride 1,000 ml @ 1,000 mls/hr Q1H IV Last administered on 08/19/18at 12:04; Start 08/19/18 at 11:37; Stop 08/19/18 at 12:36; Status DC Albuterol/ Ipratropium (Duoneb) 3 ml 1X ONCE NEB Last administered on at 12:36; Start 08/19/18 at 12:15; Stop 08/19/18 at 12:24; Status DC Ondansetron HCl (Zofran) 4 mg PRN Q8HRS PRN IV NAUSEA/VOMITING; Start 08/19/18 at 13:15; Stop 08/20/18 at 13:14 Ondansetron HCl (Zofran) 4 mg PRN Q6HRS PRN IV NAUSEA/VOMITING; Start 08/19/18 at 15:00 Heparin Sodium (Porcine) (Heparin Sodium) 5,000 unit Q12HR SQ Last administered on 08/19/18at 20:54; Start 08/19/18 at 21:00 Sodium Chloride (Normal Saline Flush) 3 ml QSHIFT PRN IV AFTER MEDS AND BLOOD DRAWS; Start 08/19/18 at 15:00 Senna/Docusate Sodium (Senna Plus) 1 tab BID PO Last administered on 08/19/18at 20:50; Start 08/19/18 at 21:00 Lactulose (Lactulose) 20 gm PRN Q12HR PRN PO CONSTIPATION; Start 08/19/18 at 15 :00 Insulin Human Lispro (HumaLOG) 0-7 UNITS TIDWMEALS SQ ; Start 08/19/18 at 17:00 Dextrose (Dextrose 50%-Water Syringe) 12.5 gm PRN Q15MIN PRN IV SEE COMMENTS; Start 08/19/18 at 15:00 Aspirin (Children'S Aspirin) 81 mg DAILY PO ; Start 08/20/18 at 09:00 Bupropion HCl (Wellbutrin Sr) 150 mg BID PO Last administered on 08/19/18at 20: 50; Start 08/19/18 at 21:00 Carvedilol (Coreg) 6.25 mg BIDWMEALS PO ; Start 08/19/18 at 17:00 Nystatin (Nystop) 1 omid PRN BID PRN TP Yeast infection Last administered on 08/19/18at 16:36; Start 08/19/18 at 15:00 Pantoprazole Sodium (Protonix) 40 mg DAILYAC PO ; Start 08/20/18 at 07:30 Insulin Human Lispro (HumaLOG) 10 units TIDWMEALS SQ Last administered on at 16:40; Start 08/19/18 at 17:00 Insulin Glargine (Lantus) 18 units QHS SQ Last administered on 08/19/18at 22:30 ; Start 08/19/18 at 21:00 Non-Formulary Medication (Ipratropium/ Albuterol Sulfate (Combivent Respimat Inhal)) 2 inh QID IH ; Start 08/19/18 at 17:00; Stop 08/19/18 at 17:00; Status DC Montelukast Sodium (Singulair) 10 mg QHS PO Last administered on 08/19/18at 20: 50; Start 08/19/18 at 21:00 Albuterol/ Ipratropium (Duoneb) 3 ml RTQID NEB Last administered on 08/19/18at 20:11; Start 08/19/18 at 16:00 Alprazolam (Xanax) 0.25 mg PRN Q8HRS PRN PO ANXIETY / AGITATION Last administered on 08/19/18at 22:28; Start 08/19/18 at 21:00 Tramadol HCl (Ultram) 50 mg PRN Q6HRS PRN PO PAIN Last administered on at 22:29; Start 08/19/18 at 21:00 Guaifenesin (Robitussin) 200 mg PRN Q4HRS PRN PO COUGH Last administered on 08/19/18at 22:29; Start 08/19/18 at 21:00 Lorazepam (Ativan) 1 mg PRN Q6HRS PRN IV ANXIETY / AGITATION Last administered on 08/20/18at 01:56; Start 08/20/18 at 01:45 Active Scripts Active Levemir Flextouch (Insulin Detemir) 100 Unit/1 Ml Insuln.pen 18 Units SQ QHS Novolog Flexpen (Insulin Aspart) 100 Unit/1 Ml Insuln.pen 10 Units SQ TIDAC Topamax (Topiramate) 25 Mg Tablet 25 Mg PO HS Combivent Respimat Inhal (Ipratropium/Albuterol Sulfate) 4 Gm Aer.w.adap 2 Inh IH QID Lasix (Furosemide) 40 Mg Tablet 1 Tab PO DAILY Aldactone (Spironolactone) 25 Mg Tablet 25 Mg PO DAILY Klor-Con M20 (Potassium Chloride) 20 Meq Tablet.er 40 Meq PO DAILY Nystop (Nystatin) 1 Omid Omid 1 Omid TP BID PRN [Aspirin] 325 MG Tablet.dr 325 Mg PO DAILYWBKFT Reported Wellbutrin Sr (Bupropion Hcl) 150 Mg Tablet.er 1 Tab PO BID Aspirin 81 Mg Tab.chew 1 Tab PO DAILY Montelukast Sodium Tablet (Montelukast Sodium) 10 Mg Tablet 10 Mg PO HS Tizanidine Hcl 4 Mg Tablet 1 Tab PO BID Carvedilol 6.25 Mg Tablet 6.25 Mg PO BIDWMEALS Pantoprazole Sodium 40 Mg Tablet.dr 40 Mg PO DAILY Alprazolam 1 Mg Tab.rapdis 1 Mg PO Q4HRS PRN Vitals/I & O Vital Sign - Last 24 Hours 08/19/18 08/19/18 08/19/18 08/19/18 11:23 12:00 12:30 12:36 Temp 97.6 97.6 Pulse 66 70 68 Resp 18 22 16 B/P (MAP) 177/73 (107) 133/64 (87) 138/57 (84) Pulse Ox 97 92 100 98 O2 Delivery Nasal Cannula Nasal Cannula Nasal Cannula BiPAP/CPAP O2 Flow Rate 3.0 3.0 3.0 08/19/18 08/19/18 08/19/18 08/19/18 13:00 14:00 14:15 14:30 Temp 98.0 98.0 Pulse 66 70 60 62 Resp 20 16 15 14 B/P (MAP) 108/50 (69) 99/52 (68) 110/69 (83) 146/69 (94) Pulse Ox 100 97 98 95 O2 Delivery BiPAP/CPAP Nasal Cannula Nasal Cannula Nasal Cannula O2 Flow Rate 1.5 1.5 1.5 08/19/18 08/19/18 08/19/18 08/19/18 14:45 15:00 15:08 15:30 Pulse 62 59 58 Resp 15 16 15 B/P (MAP) 92/56 (68) 153/73 (99) 116/80 (92) Pulse Ox 96 97 99 O2 Delivery Nasal Cannula Nasal Cannula Nasal Cannula Nasal Cannula O2 Flow Rate 1.5 1.5 1.5 1.5 08/19/18 08/19/18 08/19/18 08/19/18 15:43 15:57 16:00 16:26 Pulse 59 58 Resp 22 B/P (MAP) 124/58 (80) Pulse Ox 98 99 O2 Delivery BiPAP/CPAP BiPAP/CPAP O2 Flow Rate 1.5 08/19/18 08/19/18 08/19/18 08/19/18 17:00 18:00 19:00 20:00 Temp 97.5 97.5 Pulse 54 67 67 62 Resp 22 17 17 17 B/P (MAP) 147/68 (94) 146/60 (88) 146/60 (88) 101/62 (75) Pulse Ox 99 99 99 99 O2 Delivery BiPAP/CPAP Nasal Cannula Nasal Cannula Nasal Cannula 08/19/18 08/19/18 08/19/18 08/19/18 20:00 20:13 21:00 22:00 Pulse 66 67 Resp 18 23 B/P (MAP) 130/49 (76) 115/40 (65) Pulse Ox 98 98 99 O2 Delivery Nasal Cannula Nasal Cannula Nasal Cannula Nasal Cannula O2 Flow Rate 2.0 2.0 2.0 2.0 08/19/18 08/19/18 08/20/18 08/20/18 22:29 23:00 00:00 01:00 Pulse 71 72 Resp 20 13 B/P (MAP) 121/47 (71) 119/41 (67) Pulse Ox 99 99 O2 Delivery Nasal Cannula Nasal Cannula Nasal Cannula Nasal Cannula O2 Flow Rate 2.0 2.0 2.0 2.0 08/20/18 08/20/18 08/20/18 08/20/18 02:00 03:00 04:00 04:00 Temp 98.1 98.1 Pulse 70 68 74 Resp 20 18 18 B/P (MAP) 127/60 (82) 144/53 (83) 150/55 (86) Pulse Ox 98 100 25 O2 Delivery Nasal Cannula Nasal Cannula BiPAP/CPAP Nasal Cannula O2 Flow Rate 2.0 2.0 2.0 08/20/18 05:00 Pulse 76 Resp 18 B/P (MAP) 116/48 (70) Pulse Ox 25 O2 Delivery BiPAP/CPAP Intake and Output 08/19/18 08/19/18 08/20/18 15:00 23:00 07:00 Intake Total 1000 ml 790 ml 480 ml Output Total 0 ml 500 ml 850 ml Balance 1000 ml 290 ml -370 ml RUSSEL MOREJON MD Aug 20, 2018 07:29
[2018-08-20] MEDS: IPRATRPIUM/ALBUTEROL 0.5/2.5MG 3 ML NEBU. NEB SCH ×4 (07:58→20:03)
[2018-08-20] MEDS: buPROPion SR 150 MG TABLET.SA PO SCH ×2 (08:36→20:30)
[2018-08-20] MEDS: ASPIRIN CHEWABLE 81 MG TABLET. PO SCH (08:36)
[2018-08-20] MEDS: SENNOSIDES/DOCUSATE 8.6/50MG TABLET. PO SCH ×2 (08:36→20:30)
[2018-08-20] MEDS: PANTOPRAZOLE 40 MG TABLET.DR. PO SCH (08:36)
[2018-08-20] MEDS: HEPARIN for SUB-Q USE 5,000 UNIT/ML VIAL. SQ SCH ×2 (08:38→20:30)
[2018-08-20] MEDS: INSULIN LISPRO 300 UNITS/3 ML INSULN.PEN. SQ SCH ×6 (08:39→17:00)
[2018-08-20] MEDS: CARVEDILOL 6.25 MG TABLET. PO SCH ×2 (08:41→17:53)
[2018-08-20 09:49] LABS: HEMATOCRIT 29.5 % (36.0-47.0); HEMOGLOBIN 9.6 g/dL (12.0-15.5); RED BLOOD COUNT 3.5 x10^6/uL (3.50-5.40); RED CELL DISTRIBUTION WIDTH 14.7 % (11.5-14.5); WHITE BLOOD COUNT 3.6 x10^3/uL (4.0-11.0)
[2018-08-20 09:56] LABS: CALCIUM 8.4 mg/dL (8.5-10.1); CREATININE 1.6 mg/dL (0.6-1.0); GFR 32.9; POTASSIUM 4.4 mmol/L (3.5-5.1)
[2018-08-20 11:00] LABS: BASE EXCESS ABG 1 mmol/L (-3-3); HCO3 ABG 27 mmol/L (21-28); PCO2 ABG 50 mmHg (35-46); PO2 ABG 81 mmHg (65-108); SAT O2 ABG 95 % (92-99)
[2018-08-20 11:02] LABS: FIO2 ABG 28
--- NOTE | 2018-08-20 11:54 | CONS ---
DATE OF CONSULTATION: ATTENDING PHYSICIAN: Dr. Gonsales. REASON FOR CONSULTATION: Encephalopathy, COPD exacerbation and respiratory failure. HISTORY OF PRESENT ILLNESS: The patient is a 58-year-old female who is morbidly obese with a BMI of 45 and history of COPD, on home oxygen at 3 liters, was brought in to the hospital by EMS for evaluation of confusion at home per her . Her blood sugar was greater than 500. She received insulin. In the ER, she was difficult to arouse. Her arterial blood gases reveal a pH of 7.24, pCO2 of 80 and pO2 of 132 and 32% FiO2. She was then kept on BiPAP and a followup ABG showed a pH of 7.32, pCO2 of 60 and pO2 of 67. The patient did not wear the BiPAP all night. This morning she still has some confusion. However, the arterial blood gases shows compensated respiratory acidosis. Her blood sugars latest are 207. It is being managed by her PCP. She has been coughing. The cough is nonproductive. No chest pain, no shortness of breath. I am unable to obtain much history from the patient due to her encephalopathy. I have reviewed the patient's chest x-ray done today and there is evidence of COPD, but no infiltrates seen. A chest x-ray from yesterday was clear as well. PAST MEDICAL HISTORY: Significant for suspected COPD, history of suspected JOSELYN/OHS with chronic hypercarbia. History of GERD, osteoarthritis. PAST SURGICAL HISTORY: Tonsillectomy, hysterectomy. ALLERGIES: All reviewed including PENICILLIN, SULFA, CODEINE, and MORPHINE. REVIEW OF SYSTEMS: Unable to obtain from the patient due to her encephalopathy. MEDICATIONS: Reviewed as listed in the MRAD including DuoNeb. PHYSICAL EXAMINATION: GENERAL: She is confused, but in no obvious respiratory distress. VITAL SIGNS: Blood pressure 134/56, pulse ox is 96% on nasal cannula. HEENT: Sclerae nonicteric. NECK: Supple. LUNGS: Diminished breath sounds. CARDIOVASCULAR: Regular rate and rhythm. ABDOMEN: Soft, obese. EXTREMITIES: With trace pitting edema. LABORATORY DATA: Reviewed. BUN and creatinine 20 and 1.6. Sodium 140. Urine drug screen positive for opiates and benzodiazepines. INR is 1.1. White cell count 3.6, hemoglobin 9.6 and platelets are 83,000. IMPRESSION: 1. [id number] hypercapnic respiratory failure secondary to multifactorial etiologies including AECOPD/worsening hypercapnia as well as hyperglycemia. 2. Acute metabolic and toxic encephalopathy. 3. Underlying chronic obstructive pulmonary disease. 4. Suspected obstructive sleep apnea/obesity hypoventilation syndrome. 5. Thrombocytopenia, needs to closely watch. 6. Suspect acute bronchitis. Chest x-ray is clear with no evidence of any pneumonia. 7. Acute kidney injury. RECOMMENDATIONS: 1. Continue present nasal cannula. Her ABGs have shown compensated respiratory acidosis. 2. Avoid benzodiazepines and narcotics. 3. Would recommend BiPAP at bedtime. 4. Bronchodilators. 5. Sleep study as an outpatient. 6. Management of hyperglycemia per PCP. 7. Monitor platelets closely. She is currently on heparin for DVT prophylaxis. 8. Discussed with RN and RT. We will monitor closely in the ICU. Critical care time 38 minutes. MILAGROS LIMA MD DR: AILIN/millie JOB#: [id number] / [id number] MADISYN
[2018-08-20] MEDS: traMADol 50 MG TABLET PO PRN ×2 (14:36→20:30)
--- NOTE | 2018-08-20 19:57 | RAD ---
CHEST AP ONLY dated 08/20/2018 5:52 AM. Comparison: 08/19/2018 Clinical Indication: Shortness of breath. COPD. Findings: Single upright portable exam performed. Heart and mediastinal contours are stable. Lungs are clear without focal consolidation. Vascular interstitium within normal limits. No pleural effusion or pneumothorax. Impression: No acute radiographic abnormality. Electronically signed by: Aureliano Breen MD (08/20/2018 7:53 PM) [facility]
[2018-08-20] MEDS: MONTELUKAST SODIUM 10 MG TABLET. PO SCH (20:39)
[2018-08-20] MEDS: INSULIN GLARGINE 300 UNITS/3 ML INSULN.PEN. SQ SCH (20:55)
[2018-08-20] MEDS: ALPRAZolam 0.25 MG TABLET PO PRN (22:09)
[2018-08-21] VITALS (17 sets, daily range): BP systolic 99–172; BP diastolic 43–88
[2018-08-21] MEDS: traMADol 50 MG TABLET PO PRN ×2 (05:49→14:20)
[2018-08-21 06:15] LABS: HEMATOCRIT 28.5 % (36.0-47.0); HEMOGLOBIN 9.2 g/dL (12.0-15.5); RED BLOOD COUNT 3.4 x10^6/uL (3.50-5.40); WHITE BLOOD COUNT 3.8 x10^3/uL (4.0-11.0)
[2018-08-21 06:44] LABS: CALCIUM 8.5 mg/dL (8.5-10.1); CREATININE 1.6 mg/dL (0.6-1.0); GFR 32.9; POTASSIUM 3.8 mmol/L (3.5-5.1)
[2018-08-21] MEDS: CARVEDILOL 6.25 MG TABLET. PO SCH ×2 (08:22→17:37)
[2018-08-21] MEDS: buPROPion SR 150 MG TABLET.SA PO SCH ×2 (08:22→19:56)
[2018-08-21] MEDS: ALPRAZolam 0.25 MG TABLET PO PRN ×2 (08:23→19:55)
[2018-08-21] MEDS: PANTOPRAZOLE 40 MG TABLET.DR. PO SCH (08:23)
[2018-08-21] MEDS: ASPIRIN CHEWABLE 81 MG TABLET. PO SCH (08:23)
[2018-08-21] MEDS: HEPARIN for SUB-Q USE 5,000 UNIT/ML VIAL. SQ SCH ×2 (08:24→20:01)
[2018-08-21] MEDS: INSULIN LISPRO 300 UNITS/3 ML INSULN.PEN. SQ SCH ×5 (08:25→17:37)
[2018-08-21] MEDS: SENNOSIDES/DOCUSATE 8.6/50MG TABLET. PO SCH ×2 (08:32→19:56)
--- NOTE | 2018-08-21 09:52 | PDOC ---
PULMONARY PROGRESS NOTES Subjective PT OFF BIPAP NO COMPLAINTS Vitals Vital Signs Date Time Temp Pulse Resp B/P (MAP) Pulse Ox O2 Delivery O2 Flow Rate FiO2 08/21/18 09:00 73 20 172/71 (104) 100 Nasal Cannula 2.0 08/21/18 07:00 97.6 97.6 ROS: No Nausea, No Chest Pain, No Abdominal Pain, No Increase Cough General: Alert, No acute distress Lungs: Clear, Other (POOR AIRFLOW) Cardiovascular: S1, S2 Abdomen: Soft, Non-tender Neuro Exam: Alert Extremities: No Edema, Other Skin: Warm Labs Laboratory Tests Test 08/19/18 11:26 08/19/18 11:30 08/19/18 11:53 08/19/18 12:00 Glucose (Fingerstick) 279 mg/dL (70-99) White Blood Count 4.6 x10^3/uL (4.0-11.0) Red Blood Count 3.99 x10^6/uL (3.50-5.40) Hemoglobin 11.0 g/dL (12.0-15.5) Hematocrit 33.8 % (36.0-47.0) Mean Corpuscular Volume 85 fL (79-100) Mean Corpuscular Hemoglobin 28 pg (25-35) Mean Corpuscular Hemoglobin Concent 33 g/dL (31-37) Red Cell Distribution Width 14.6 % (11.5-14.5) Platelet Count 109 x10^3/uL (140-400) Neutrophils (%) (Auto) 63 % (31-73) Lymphocytes (%) (Auto) 26 % (24-48) Monocytes (%) (Auto) 6 % (0-9) Eosinophils (%) (Auto) 4 % (0-3) Basophils (%) (Auto) 1 % (0-3) Neutrophils # (Auto) 2.9 x10^3uL (1.8-7.7) Lymphocytes # (Auto) 1.2 x10^3/uL (1.0-4.8) Monocytes # (Auto) 0.3 x10^3/uL (0.0-1.1) Eosinophils # (Auto) 0.2 x10^3/uL (0.0-0.7) Basophils # (Auto) 0.0 x10^3/uL (0.0-0.2) Prothrombin Time 14.1 SEC (11.7-14.0) Prothromb Time International Ratio 1.1 (0.8-1.1) Sodium Level 142 mmol/L (136-145) Potassium Level 4.9 mmol/L (3.5-5.1) Chloride Level 104 mmol/L (98-107) Carbon Dioxide Level 33 mmol/L (21-32) Anion Gap 5 (6-14) Blood Urea Nitrogen 21 mg/dL (7-20) Creatinine 1.7 mg/dL (0.6-1.0) Estimated GFR (Cockcroft-Gault) 30.7 BUN/Creatinine Ratio 12 (6-20) Glucose Level 287 mg/dL (70-99) Calcium Level 8.3 mg/dL (8.5-10.1) Magnesium Level 1.3 mg/dL (1.8-2.4) Total Bilirubin 0.4 mg/dL (0.2-1.0) Aspartate Amino Transf (AST/SGOT) 17 U/L (15-37) Alanine Aminotransferase (ALT/SGPT) 16 U/L (14-59) Alkaline Phosphatase 95 U/L (46-116) Creatine Kinase 36 U/L (26-192) Creatine Kinase MB (Mass) 0.9 ng/mL (0.0-3.6) Creatine Kinase MB Relative Index % (0-4) Troponin I Quantitative < 0.017 ng/mL (0.000-0.055) MD-Iyk-U-Type Natriuretic Peptide 84 pg/mL (0-124) Total Protein 7.2 g/dL (6.4-8.2) Albumin 3.2 g/dL (3.4-5.0) Albumin/Globulin Ratio 0.8 (1.0-1.7) Lipase 85 U/L (73-393) Urine Collection Type U cath Urine Color Yellow Urine Clarity Clear Urine pH 6.0 Urine Specific [place]art 1.025 Urine Protein Negative mg/dL (NEG-TRACE) Urine Glucose (UA) 500 mg/dL (NEG) Urine Ketones (Stick) Negative mg/dL (NEG) Urine Blood Negative (NEG) Urine Nitrite Negative (NEG) Urine Bilirubin Small (NEG) Urine Urobilinogen Dipstick 1.0 mg/dL (0.2 mg/dL) Urine Leukocyte Esterase Negative (NEG) Urine RBC Occ /HPF (0-2) Urine WBC 1-4 /HPF (0-4) Urine Squamous Epithelial Cells Mod /LPF Urine Bacteria Few /HPF (0-FEW) Urine Mucus Marked /LPF Urine Opiates Screen Pos (NEG) Urine Methadone Screen Neg (NEG) Urine Barbiturates Neg (NEG) Urine Phencyclidine Screen Neg (NEG) Urine Amphetamine/Methamphetamine Neg (NEG) Urine Benzodiazepines Screen Pos (NEG) Urine Cocaine Screen Neg (NEG) Urine Cannabinoids Screen Neg (NEG) Urine Ethyl Alcohol Neg (NEG) O2 Saturation 98 % (92-99) Arterial Blood pH 7.24 (7.35-7.45) Arterial Blood pCO2 at Patient Temp 80 mmHg (35-46) Arterial Blood pO2 at Patient Temp 132 mmHg (65-108) Arterial Blood HCO3 34 mmol/L (21-28) Arterial Blood Base Excess 4 mmol/L (-3-3) FiO2 32 Test 08/19/18 14:58 08/19/18 15:00 08/19/18 16:35 08/19/18 21:02 Glucose (Fingerstick) 168 mg/dL (70-99) 138 mg/dL (70-99) 132 mg/dL (70-99) O2 Saturation 91 % (92-99) Arterial Blood pH 7.32 (7.35-7.45) Arterial Blood pCO2 at Patient Temp 60 mmHg (35-46) Arterial Blood pO2 at Patient Temp 67 mmHg (65-108) Arterial Blood HCO3 30 mmol/L (21-28) Arterial Blood Base Excess 3 mmol/L (-3-3) FiO2 26 Test 08/20/18 08:23 08/20/18 09:25 08/20/18 10:30 08/20/18 12:34 Glucose (Fingerstick) 167 mg/dL (70-99) 145 mg/dL (70-99) White Blood Count 3.6 x10^3/uL (4.0-11.0) Red Blood Count 3.50 x10^6/uL (3.50-5.40) Hemoglobin 9.6 g/dL (12.0-15.5) Hematocrit 29.5 % (36.0-47.0) Mean Corpuscular Volume 84 fL (79-100) Mean Corpuscular Hemoglobin 28 pg (25-35) Mean Corpuscular Hemoglobin Concent 33 g/dL (31-37) Red Cell Distribution Width 14.7 % (11.5-14.5) Platelet Count 83 x10^3/uL (140-400) Sodium Level 140 mmol/L (136-145) Potassium Level 4.4 mmol/L (3.5-5.1) Chloride Level 104 mmol/L (98-107) Carbon Dioxide Level 31 mmol/L (21-32) Anion Gap 5 (6-14) Blood Urea Nitrogen 20 mg/dL (7-20) Creatinine 1.6 mg/dL (0.6-1.0) Estimated GFR (Cockcroft-Gault) 32.9 Glucose Level 207 mg/dL (70-99) Calcium Level 8.4 mg/dL (8.5-10.1) O2 Saturation 95 % (92-99) Arterial Blood pH 7.35 (7.35-7.45) Arterial Blood pCO2 at Patient Temp 50 mmHg (35-46) Arterial Blood pO2 at Patient Temp 81 mmHg (65-108) Arterial Blood HCO3 27 mmol/L (21-28) Arterial Blood Base Excess 1 mmol/L (-3-3) FiO2 28 Test 08/20/18 17:47 08/20/18 20:54 08/21/18 06:00 08/21/18 08:22 Glucose (Fingerstick) 113 mg/dL (70-99) 158 mg/dL (70-99) 155 mg/dL (70-99) White Blood Count 3.8 x10^3/uL (4.0-11.0) Red Blood Count 3.40 x10^6/uL (3.50-5.40) Hemoglobin 9.2 g/dL (12.0-15.5) Hematocrit 28.5 % (36.0-47.0) Mean Corpuscular Volume 84 fL (79-100) Mean Corpuscular Hemoglobin 27 pg (25-35) Mean Corpuscular Hemoglobin Concent 32 g/dL (31-37) Red Cell Distribution Width 15.0 % (11.5-14.5) Platelet Count 87 x10^3/uL (140-400) Sodium Level 142 mmol/L (136-145) Potassium Level 3.8 mmol/L (3.5-5.1) Chloride Level 105 mmol/L (98-107) Carbon Dioxide Level 29 mmol/L (21-32) Anion Gap 8 (6-14) Blood Urea Nitrogen 20 mg/dL (7-20) Creatinine 1.6 mg/dL (0.6-1.0) Estimated GFR (Cockcroft-Gault) 32.9 Glucose Level 137 mg/dL (70-99) Calcium Level 8.5 mg/dL (8.5-10.1) Laboratory Tests Test 08/20/18 10:30 08/20/18 12:34 08/20/18 17:47 08/20/18 20:54 O2 Saturation 95 % (92-99) Arterial Blood pH 7.35 (7.35-7.45) Arterial Blood pCO2 at Patient Temp 50 mmHg (35-46) Arterial Blood pO2 at Patient Temp 81 mmHg (65-108) Arterial Blood HCO3 27 mmol/L (21-28) Arterial Blood Base Excess 1 mmol/L (-3-3) FiO2 28 Glucose (Fingerstick) 145 mg/dL (70-99) 113 mg/dL (70-99) 158 mg/dL (70-99) Test 08/21/18 06:00 08/21/18 08:22 White Blood Count 3.8 x10^3/uL (4.0-11.0) Red Blood Count 3.40 x10^6/uL (3.50-5.40) Hemoglobin 9.2 g/dL (12.0-15.5) Hematocrit 28.5 % (36.0-47.0) Mean Corpuscular Volume 84 fL (79-100) Mean Corpuscular Hemoglobin 27 pg (25-35) Mean Corpuscular Hemoglobin Concent 32 g/dL (31-37) Red Cell Distribution Width 15.0 % (11.5-14.5) Platelet Count 87 x10^3/uL (140-400) Sodium Level 142 mmol/L (136-145) Potassium Level 3.8 mmol/L (3.5-5.1) Chloride Level 105 mmol/L (98-107) Carbon Dioxide Level 29 mmol/L (21-32) Anion Gap 8 (6-14) Blood Urea Nitrogen 20 mg/dL (7-20) Creatinine 1.6 mg/dL (0.6-1.0) Estimated GFR (Cockcroft-Gault) 32.9 Glucose Level 137 mg/dL (70-99) Calcium Level 8.5 mg/dL (8.5-10.1) Glucose (Fingerstick) 155 mg/dL (70-99) Medications Active Scripts Medications Dose Route/Sig Max Daily Dose Days Date Category Levemir Flextouch (Insulin Detemir) 100 Unit/1 Ml Insuln.pen 18 Units SQ QHS 10/17/15 Rx Novolog Flexpen (Insulin Aspart) 100 Unit/1 Ml Insuln.pen 10 Units SQ TIDAC 10/17/15 Rx Topamax (Topiramate) 25 Mg Tablet 25 Mg PO HS 03/18/15 Rx Wellbutrin Sr (Bupropion Hcl) 150 Mg Tablet.er 1 Tab PO BID 03/11/15 Reported Aspirin 81 Mg Tab.chew 1 Tab PO DAILY 03/11/15 Reported Montelukast Sodium Tablet (Montelukast Sodium) 10 Mg Tablet 10 Mg PO HS 03/11/15 Reported Tizanidine Hcl 4 Mg Tablet 1 Tab PO BID 03/11/15 Reported Combivent Respimat Inhal (Ipratropium/Albuterol Sulfate) 4 Gm Aer.w.adap 2 Inh IH QID 11/28/14 Rx Lasix (Furosemide) 40 Mg Tablet 1 Tab PO DAILY 10/25/14 Rx Aldactone (Spironolactone) 25 Mg Tablet 25 Mg PO DAILY 10/25/14 Rx Klor-Con M20 (Potassium Chloride) 20 Meq Tablet.er 40 Meq PO DAILY 10/25/14 Rx Nystop (Nystatin) 1 Omid Omid 1 Omid TP BID PRN 10/25/14 Rx [Aspirin] 325 MG Tablet.dr 325 Mg PO DAILYWBKFT 10/25/14 Rx Carvedilol 6.25 Mg Tablet 6.25 Mg PO BIDWMEALS 10/22/14 Reported Pantoprazole Sodium 40 Mg Tablet.dr 40 Mg PO DAILY 10/22/14 Reported Alprazolam 1 Mg Tab.rapdis 1 Mg PO Q4HRS PRN 02/04/14 Reported Impression . IMPRESSION: 1. [id number] hypercapnic respiratory failure 2. Acute metabolic and toxic encephalopathy. 3. Underlying chronic obstructive pulmonary disease. 4. Suspected obstructive sleep apnea/obesity hypoventilation syndrome. 5. Thrombocytopenia, needs to closely watch. 6. AECOPD 7. Acute kidney injury. Plan . PT TO AVOID NARCOTICS AND BENZO COMBINATION 02 N/C PER BIPAP SLEEP STUDY OUT PT AVOID SMOKING OK TO TRANSFER OUT OF ICU CCT 30 MINUTES CHA RAZA MD Aug 21, 2018 09:52
[2018-08-21] MEDS: IPRATRPIUM/ALBUTEROL 0.5/2.5MG 3 ML NEBU. NEB SCH ×4 (10:06→20:12)
[2018-08-21] MEDS ORDERED: INSULIN LISPRO 300 UNITS/3 ML INSULN.PEN. SQ SCH (12:00)
--- NOTE | 2018-08-21 14:08 | PDOC ---
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 on NC on duoneb, add albuterol prn decrease insulin to lantus 15u qhs, aspart 5u tid, ssi cough meds dvt ppx PTOT History of Present Illness History of Present Illness 58 yo F w/ PMHx HTN, DM, chronic benzo dependence, COPD on 3L NCO2 at home was brought here by EMS for evaluation of confusion at home per her . He checked her blood glucose and the meter read high (>500), gave her 30 units of lispro insulin. In ED she was difficult to arouse, ABG 7.24/80/130, started on BIPAP. Hb 11, no leukocytosis. Patient had history of COPD, on 3 L of oxygen at home. Patient and her stated that she ran out of her oxygen, not sure how long. Improved with BIPAP yesterday and overnight, still drowsy this morning. She is asking to eat and go home, advised we need to ensure she has home O2 as that was the reason she arrived. Denies cough, no CP, no pain complaints. Mildly anxious. refuse BIpap wants go home Vitals Vitals Vital Signs Date Time Temp Pulse Resp B/P (MAP) Pulse Ox O2 Delivery O2 Flow Rate FiO2 08/21/18 12:54 98 Nasal Cannula 2.0 08/21/18 11:00 69 19 123/61 (81) 08/21/18 07:00 97.6 97.6 Physical Exam General: Alert, Oriented X3, Cooperative, mild distress, Other (Confused, drowsy, easily aroused) Heart: Regular rate, Normal S1 Lungs: Other (POOR AIRFLOW, bl moderate decreased bs, no wheezing or rales) Abdomen: Normal bowel sounds, Soft, No tenderness, No hepatosplenomegaly, No masses Extremities: No clubbing, No cyanosis, Normal pulses, No tenderness/swelling, Other (Scant edema, covered in leaves and feces) Skin: No rashes, No breakdown, No significant lesion Labs LABS Laboratory Tests Test 08/20/18 17:47 08/20/18 20:54 08/21/18 06:00 08/21/18 08:22 Glucose (Fingerstick) 113 mg/dL (70-99) 158 mg/dL (70-99) 155 mg/dL (70-99) White Blood Count 3.8 x10^3/uL (4.0-11.0) Red Blood Count 3.40 x10^6/uL (3.50-5.40) Hemoglobin 9.2 g/dL (12.0-15.5) Hematocrit 28.5 % (36.0-47.0) Mean Corpuscular Volume 84 fL (79-100) Mean Corpuscular Hemoglobin 27 pg (25-35) Mean Corpuscular Hemoglobin Concent 32 g/dL (31-37) Red Cell Distribution Width 15.0 % (11.5-14.5) Platelet Count 87 x10^3/uL (140-400) Sodium Level 142 mmol/L (136-145) Potassium Level 3.8 mmol/L (3.5-5.1) Chloride Level 105 mmol/L (98-107) Carbon Dioxide Level 29 mmol/L (21-32) Anion Gap 8 (6-14) Blood Urea Nitrogen 20 mg/dL (7-20) Creatinine 1.6 mg/dL (0.6-1.0) Estimated GFR (Cockcroft-Gault) 32.9 Glucose Level 137 mg/dL (70-99) Calcium Level 8.5 mg/dL (8.5-10.1) Test 08/21/18 11:50 Glucose (Fingerstick) 102 mg/dL (70-99) Assessment and Plan Assessmemt and Plan Problems Medical Problems: (1) Hypercapnic respiratory failure Status: Acute (2) Hyperglycemia Status: Acute Comment Review of Relevant I have reviewed the following items kylee (where applicable) has been applied. Labs Laboratory Tests Test 08/19/18 14:58 08/19/18 15:00 08/19/18 16:35 08/19/18 21:02 Glucose (Fingerstick) 168 mg/dL (70-99) 138 mg/dL (70-99) 132 mg/dL (70-99) O2 Saturation 91 % (92-99) Arterial Blood pH 7.32 (7.35-7.45) Arterial Blood pCO2 at Patient Temp 60 mmHg (35-46) Arterial Blood pO2 at Patient Temp 67 mmHg (65-108) Arterial Blood HCO3 30 mmol/L (21-28) Arterial Blood Base Excess 3 mmol/L (-3-3) FiO2 26 Test 08/20/18 08:23 08/20/18 09:25 08/20/18 10:30 08/20/18 12:34 Glucose (Fingerstick) 167 mg/dL (70-99) 145 mg/dL (70-99) White Blood Count 3.6 x10^3/uL (4.0-11.0) Red Blood Count 3.50 x10^6/uL (3.50-5.40) Hemoglobin 9.6 g/dL (12.0-15.5) Hematocrit 29.5 % (36.0-47.0) Mean Corpuscular Volume 84 fL (79-100) Mean Corpuscular Hemoglobin 28 pg (25-35) Mean Corpuscular Hemoglobin Concent 33 g/dL (31-37) Red Cell Distribution Width 14.7 % (11.5-14.5) Platelet Count 83 x10^3/uL (140-400) Sodium Level 140 mmol/L (136-145) Potassium Level 4.4 mmol/L (3.5-5.1) Chloride Level 104 mmol/L (98-107) Carbon Dioxide Level 31 mmol/L (21-32) Anion Gap 5 (6-14) Blood Urea Nitrogen 20 mg/dL (7-20) Creatinine 1.6 mg/dL (0.6-1.0) Estimated GFR (Cockcroft-Gault) 32.9 Glucose Level 207 mg/dL (70-99) Calcium Level 8.4 mg/dL (8.5-10.1) O2 Saturation 95 % (92-99) Arterial Blood pH 7.35 (7.35-7.45) Arterial Blood pCO2 at Patient Temp 50 mmHg (35-46) Arterial Blood pO2 at Patient Temp 81 mmHg (65-108) Arterial Blood HCO3 27 mmol/L (21-28) Arterial Blood Base Excess 1 mmol/L (-3-3) FiO2 28 Test 08/20/18 17:47 08/20/18 20:54 08/21/18 06:00 08/21/18 08:22 Glucose (Fingerstick) 113 mg/dL (70-99) 158 mg/dL (70-99) 155 mg/dL (70-99) White Blood Count 3.8 x10^3/uL (4.0-11.0) Red Blood Count 3.40 x10^6/uL (3.50-5.40) Hemoglobin 9.2 g/dL (12.0-15.5) Hematocrit 28.5 % (36.0-47.0) Mean Corpuscular Volume 84 fL (79-100) Mean Corpuscular Hemoglobin 27 pg (25-35) Mean Corpuscular Hemoglobin Concent 32 g/dL (31-37) Red Cell Distribution Width 15.0 % (11.5-14.5) Platelet Count 87 x10^3/uL (140-400) Sodium Level 142 mmol/L (136-145) Potassium Level 3.8 mmol/L (3.5-5.1) Chloride Level 105 mmol/L (98-107) Carbon Dioxide Level 29 mmol/L (21-32) Anion Gap 8 (6-14) Blood Urea Nitrogen 20 mg/dL (7-20) Creatinine 1.6 mg/dL (0.6-1.0) Estimated GFR (Cockcroft-Gault) 32.9 Glucose Level 137 mg/dL (70-99) Calcium Level 8.5 mg/dL (8.5-10.1) Test 08/21/18 11:50 Glucose (Fingerstick) 102 mg/dL (70-99) Laboratory Tests Test 08/20/18 17:47 08/20/18 20:54 08/21/18 06:00 08/21/18 08:22 Glucose (Fingerstick) 113 mg/dL (70-99) 158 mg/dL (70-99) 155 mg/dL (70-99) White Blood Count 3.8 x10^3/uL (4.0-11.0) Red Blood Count 3.40 x10^6/uL (3.50-5.40) Hemoglobin 9.2 g/dL (12.0-15.5) Hematocrit 28.5 % (36.0-47.0) Mean Corpuscular Volume 84 fL (79-100) Mean Corpuscular Hemoglobin 27 pg (25-35) Mean Corpuscular Hemoglobin Concent 32 g/dL (31-37) Red Cell Distribution Width 15.0 % (11.5-14.5) Platelet Count 87 x10^3/uL (140-400) Sodium Level 142 mmol/L (136-145) Potassium Level 3.8 mmol/L (3.5-5.1) Chloride Level 105 mmol/L (98-107) Carbon Dioxide Level 29 mmol/L (21-32) Anion Gap 8 (6-14) Blood Urea Nitrogen 20 mg/dL (7-20) Creatinine 1.6 mg/dL (0.6-1.0) Estimated GFR (Cockcroft-Gault) 32.9 Glucose Level 137 mg/dL (70-99) Calcium Level 8.5 mg/dL (8.5-10.1) Test 08/21/18 11:50 Glucose (Fingerstick) 102 mg/dL (70-99) Medications Current Medications Sodium Chloride 1,000 ml @ 1,000 mls/hr Q1H IV Last administered on 08/19/18at 12:04; Start 08/19/18 at 11:37; Stop 08/19/18 at 12:36; Status DC Albuterol/ Ipratropium (Duoneb) 3 ml 1X ONCE NEB Last administered on at 12:36; Start 08/19/18 at 12:15; Stop 08/19/18 at 12:24; Status DC Ondansetron HCl (Zofran) 4 mg PRN Q8HRS PRN IV NAUSEA/VOMITING; Start 08/19/18 at 13:15; Stop 08/20/18 at 08:06; Status DC Ondansetron HCl (Zofran) 4 mg PRN Q6HRS PRN IV NAUSEA/VOMITING; Start 08/19/18 at 15:00 Heparin Sodium (Porcine) (Heparin Sodium) 5,000 unit Q12HR SQ Last administered on 08/21/18at 08:24; Start 08/19/18 at 21:00 Sodium Chloride (Normal Saline Flush) 3 ml QSHIFT PRN IV AFTER MEDS AND BLOOD DRAWS; Start 08/19/18 at 15:00 Senna/Docusate Sodium (Senna Plus) 1 tab BID PO Last administered on 08/20/18at 20:30; Start 08/19/18 at 21:00 Lactulose (Lactulose) 20 gm PRN Q12HR PRN PO CONSTIPATION; Start 08/19/18 at 15 :00 Insulin Human Lispro (HumaLOG) 0-7 UNITS TIDWMEALS SQ Last administered on 08/20 08:39; Start 08/19/18 at 17:00; Stop 08/20/18 at 18:05; Status DC Dextrose (Dextrose 50%-Water Syringe) 12.5 gm PRN Q15MIN PRN IV SEE COMMENTS; Start 08/19/18 at 15:00 Aspirin (Children'S Aspirin) 81 mg DAILY PO Last administered on 08/21/18 08: 23; Start 08/20/18 at 09:00 Bupropion HCl (Wellbutrin Sr) 150 mg BID PO Last administered on 08/21/18 08: 22; Start 08/19/18 at 21:00 Carvedilol (Coreg) 6.25 mg BIDWMEALS PO Last administered on 08/21/18 08:22; Start 08/19/18 at 17:00 Nystatin (Nystop) 1 omid PRN BID PRN TP Yeast infection Last administered on 16:36; Start 08/19/18 at 15:00 Pantoprazole Sodium (Protonix) 40 mg DAILYAC PO Last administered on 08/21/18 08:23; Start 08/20/18 at 07:30 Insulin Human Lispro (HumaLOG) 10 units TIDWMEALS SQ Last administered on at 08:25; Start 08/19/18 at 17:00; Stop 08/21/18 at 09:09; Status DC Insulin Glargine (Lantus) 18 units QHS SQ Last administered on 08/20/18at 20:55 ; Start 08/19/18 at 21:00 Non-Formulary Medication (Ipratropium/ Albuterol Sulfate (Combivent Respimat Inhal)) 2 inh QID IH ; Start 08/19/18 at 17:00; Stop 08/19/18 at 17:00; Status DC Montelukast Sodium (Singulair) 10 mg QHS PO Last administered on 08/20/18at 20: 39; Start 08/19/18 at 21:00 Albuterol/ Ipratropium (Duoneb) 3 ml RTQID NEB Last administered on 08/21/18 12:54; Start 08/19/18 at 16:00 Alprazolam (Xanax) 0.25 mg PRN Q8HRS PRN PO ANXIETY / AGITATION Last administered on 08/21/18 08:23; Start 08/19/18 at 21:00 Tramadol HCl (Ultram) 50 mg PRN Q6HRS PRN PO PAIN Last administered on 05:49; Start 08/19/18 at 21:00 Guaifenesin (Robitussin) 200 mg PRN Q4HRS PRN PO COUGH Last administered on 22:29; Start 08/19/18 at 21:00 Lorazepam (Ativan) 1 mg PRN Q6HRS PRN IV ANXIETY / AGITATION Last administered on 08/21/18 05:49; Start 08/20/18 at 01:45 Insulin Human Lispro (HumaLOG) 0-9 UNITS TIDWMEALS SQ Last administered on 08/21 08:26; Start 08/21/18 at 08:00 Insulin Human Lispro (HumaLOG) 6 units TIDWMEALS SQ Last administered on at 12:14; Start 08/21/18 at 12:00 Active Scripts Active Levemir Flextouch (Insulin Detemir) 100 Unit/1 Ml Insuln.pen 18 Units SQ QHS Novolog Flexpen (Insulin Aspart) 100 Unit/1 Ml Insuln.pen 10 Units SQ TIDAC Topamax (Topiramate) 25 Mg Tablet 25 Mg PO HS Combivent Respimat Inhal (Ipratropium/Albuterol Sulfate) 4 Gm Aer.w.adap 2 Inh IH QID Lasix (Furosemide) 40 Mg Tablet 1 Tab PO DAILY Aldactone (Spironolactone) 25 Mg Tablet 25 Mg PO DAILY Klor-Con M20 (Potassium Chloride) 20 Meq Tablet.er 40 Meq PO DAILY Nystop (Nystatin) 1 Omid Omid 1 Omid TP BID PRN [Aspirin] 325 MG Tablet. 325 Mg PO DAILYWBKFT Reported Wellbutrin Sr (Bupropion Hcl) 150 Mg Tablet.er 1 Tab PO BID Aspirin 81 Mg Tab.chew 1 Tab PO DAILY Montelukast Sodium Tablet (Montelukast Sodium) 10 Mg Tablet 10 Mg PO HS Tizanidine Hcl 4 Mg Tablet 1 Tab PO BID Carvedilol 6.25 Mg Tablet 6.25 Mg PO BIDWMEALS Pantoprazole Sodium 40 Mg Tablet.dr 40 Mg PO DAILY Alprazolam 1 Mg Tab.rapdis 1 Mg PO Q4HRS PRN Vitals/I & O Vital Sign - Last 24 Hours 08/20/18 08/20/18 08/20/18 08/20/18 14:36 15:00 15:42 16:00 Pulse 94 Resp B/P (MAP) 119/55 (76) Pulse Ox 93 95 O2 Delivery Nasal Cannula Nasal Cannula Nasal Cannula O2 Flow Rate 2.0 3.0 2.0 2.0 08/20/18 08/20/18 08/20/18 08/20/18 16:00 16:00 17:00 17:53 Temp 98.0 98.0 Pulse 68 72 77 Resp B/P (MAP) 117/54 (75) 153/68 (96) 153/68 Pulse Ox 99 95 O2 Delivery Nasal Cannula Nasal Cannula Nasal Cannula O2 Flow Rate 2.0 2.0 2.0 08/20/18 08/20/18 08/20/18 08/20/18 18:00 19:45 20:00 20:00 Temp 98.4 98.4 Pulse 82 70 Resp B/P (MAP) 149/54 (85) 135/51 (79) Pulse Ox 98 100 93 O2 Delivery Nasal Cannula Nasal Cannula Nasal Cannula Nasal Cannula O2 Flow Rate 2.0 3.0 2.0 2.0 08/20/18 08/20/18 08/21/18 08/21/18 21:00 22:00 00:00 00:00 Temp 98.6 98.6 Pulse 82 80 78 Resp B/P (MAP) 128/54 (78) 109/48 (68) 124/52 (76) Pulse Ox 98 98 95 O2 Delivery Nasal Cannula Nasal Cannula Nasal Cannula Nasal Cannula O2 Flow Rate 2.0 2.0 2.0 2.0 08/21/18 08/21/18 08/21/18 08/21/18 01:00 02:00 03:00 04:00 Pulse 80 80 80 Resp B/P (MAP) 109/48 (68) 109/48 (68) 127/49 (75) Pulse Ox 98 98 98 O2 Delivery Nasal Cannula Nasal Cannula Nasal Cannula Nasal Cannula O2 Flow Rate 2.0 2.0 2.0 2.0 08/21/18 08/21/18 08/21/18 08/21/18 04:00 05:00 06:00 06:49 Temp 98.2 98.2 98.2 98.2 Pulse 78 80 78 Resp 18 22 18 22 B/P (MAP) 124/52 (76) 130/48 (75) 116/77 (90) Pulse Ox 95 98 94 99 O2 Delivery Nasal Cannula Nasal Cannula Nasal Cannula Nasal Cannula O2 Flow Rate 2.0 2.0 2.0 2.0 08/21/18 08/21/18 08/21/18 08/21/18 07:00 07:45 08:00 08:01 Temp 97.6 97.6 Pulse 74 78 Resp 27 17 B/P (MAP) 140/50 (80) 149/62 (91) Pulse Ox 99 99 O2 Delivery Nasal Cannula Nasal Cannula Nasal Cannula O2 Flow Rate 2.0 2.0 2.0 2.0 08/21/18 08/21/18 08/21/18 08/21/18 08:22 09:00 10:00 10:06 Pulse 78 73 71 Resp 20 19 B/P (MAP) 149/62 172/71 (104) 144/84 (104) Pulse Ox 100 100 98 O2 Delivery Nasal Cannula Nasal Cannula Nasal Cannula O2 Flow Rate 2.0 2.0 2.0 08/21/18 08/21/18 11:00 12:54 Pulse 69 Resp 19 B/P (MAP) 123/61 (81) Pulse Ox 97 98 O2 Delivery Nasal Cannula Nasal Cannula O2 Flow Rate 2.0 2.0 Intake and Output 08/20/18 08/20/18 08/21/18 15:00 23:00 07:00 Intake Total 450 ml 290 ml 960 ml Output Total 0 ml 250 ml 850 ml Balance 450 ml 40 ml 110 ml SUYAPA SIMON MD Aug 21, 2018 14:08
[2018-08-21] MEDS ORDERED: ALBUTEROL SULFATE 2.5 MG/3 ML NEBU. NEB PRN (14:15)
[2018-08-21] MEDS: MONTELUKAST SODIUM 10 MG TABLET. PO SCH (19:55)
[2018-08-21] MEDS: INSULIN GLARGINE 300 UNITS/3 ML INSULN.PEN. SQ SCH (20:08)
[2018-08-21] MEDS: LIDOCAINE (700MG/PATCH) PATCH. TD SCH (21:17)
[2018-08-22] VITALS (10 sets, daily range): BP systolic 123–177; BP diastolic 48–116
[2018-08-22] MEDS: traMADol 50 MG TABLET PO PRN ×2 (02:28→09:34)
[2018-08-22 05:50] LABS: BASO % 1 % (0-3); EOS # 0.1 x10^3/uL (0.0-0.7); EOS % 3 % (0-3); HEMATOCRIT 29.5 % (36.0-47.0); HEMOGLOBIN 9.8 g/dL (12.0-15.5); LYMPH # 1.1 x10^3/uL (1.0-4.8); LYMPH % 26 % (24-48); MEAN CORPUSCULAR HEMOGLOBIN 28 pg (25-35); MEAN CORPUSCULAR HGB CONC 33 g/dL (31-37); MEAN CORPUSCULAR VOLUME 84 fL (79-100); MONO # 0.3 x10^3/uL (0.0-1.1); MONO % 7 % (0-9); NEUT # 2.7 x10^3uL (1.8-7.7); NEUT % 63 % (31-73); PLATELET COUNT 93 x10^3/uL (140-400); RED BLOOD COUNT 3.51 x10^6/uL (3.50-5.40); RED CELL DISTRIBUTION WIDTH 14.6 % (11.5-14.5); WHITE BLOOD COUNT 4.2 x10^3/uL (4.0-11.0)
[2018-08-22 06:07] LABS: CALCIUM 8.6 mg/dL (8.5-10.1); CREATININE 1.6 mg/dL (0.6-1.0); GFR 32.9; POTASSIUM 3.9 mmol/L (3.5-5.1)
[2018-08-22] MEDS: INSULIN LISPRO 300 UNITS/3 ML INSULN.PEN. SQ SCH ×6 (08:00→17:00)
--- NOTE | 2018-08-22 08:39 | PDOC ---
PULMONARY PROGRESS NOTES Subjective PT OFF BIPAP NO COMPLAINTS Vitals Vital Signs Date Time Temp Pulse Resp B/P (MAP) Pulse Ox O2 Delivery O2 Flow Rate FiO2 08/22/18 05:00 72 140/82 (101) 08/22/18 04:45 18 94 2.0 08/22/18 03:45 97.6 Nasal Cannula 97.6 ROS: No Nausea, No Chest Pain, No Abdominal Pain, No Increase Cough General: Alert, No acute distress Lungs: Other (POOR AIRFLOW, bl moderate decreased bs, no wheezing or rales) Cardiovascular: S1, S2 Abdomen: Soft, Non-tender Neuro Exam: Alert Extremities: No Edema, Other Skin: Warm Labs Laboratory Tests Test 08/20/18 09:25 08/20/18 10:30 08/20/18 12:34 08/20/18 17:47 White Blood Count 3.6 x10^3/uL (4.0-11.0) Red Blood Count 3.50 x10^6/uL (3.50-5.40) Hemoglobin 9.6 g/dL (12.0-15.5) Hematocrit 29.5 % (36.0-47.0) Mean Corpuscular Volume 84 fL (79-100) Mean Corpuscular Hemoglobin 28 pg (25-35) Mean Corpuscular Hemoglobin Concent 33 g/dL (31-37) Red Cell Distribution Width 14.7 % (11.5-14.5) Platelet Count 83 x10^3/uL (140-400) Sodium Level 140 mmol/L (136-145) Potassium Level 4.4 mmol/L (3.5-5.1) Chloride Level 104 mmol/L (98-107) Carbon Dioxide Level 31 mmol/L (21-32) Anion Gap 5 (6-14) Blood Urea Nitrogen 20 mg/dL (7-20) Creatinine 1.6 mg/dL (0.6-1.0) Estimated GFR (Cockcroft-Gault) 32.9 Glucose Level 207 mg/dL (70-99) Calcium Level 8.4 mg/dL (8.5-10.1) O2 Saturation 95 % (92-99) Arterial Blood pH 7.35 (7.35-7.45) Arterial Blood pCO2 at Patient Temp 50 mmHg (35-46) Arterial Blood pO2 at Patient Temp 81 mmHg (65-108) Arterial Blood HCO3 27 mmol/L (21-28) Arterial Blood Base Excess 1 mmol/L (-3-3) FiO2 28 Glucose (Fingerstick) 145 mg/dL (70-99) 113 mg/dL (70-99) Test 08/20/18 20:54 08/21/18 06:00 08/21/18 08:22 08/21/18 11:50 Glucose (Fingerstick) 158 mg/dL (70-99) 155 mg/dL (70-99) 102 mg/dL (70-99) White Blood Count 3.8 x10^3/uL (4.0-11.0) Red Blood Count 3.40 x10^6/uL (3.50-5.40) Hemoglobin 9.2 g/dL (12.0-15.5) Hematocrit 28.5 % (36.0-47.0) Mean Corpuscular Volume 84 fL (79-100) Mean Corpuscular Hemoglobin 27 pg (25-35) Mean Corpuscular Hemoglobin Concent 32 g/dL (31-37) Red Cell Distribution Width 15.0 % (11.5-14.5) Platelet Count 87 x10^3/uL (140-400) Sodium Level 142 mmol/L (136-145) Potassium Level 3.8 mmol/L (3.5-5.1) Chloride Level 105 mmol/L (98-107) Carbon Dioxide Level 29 mmol/L (21-32) Anion Gap 8 (6-14) Blood Urea Nitrogen 20 mg/dL (7-20) Creatinine 1.6 mg/dL (0.6-1.0) Estimated GFR (Cockcroft-Gault) 32.9 Glucose Level 137 mg/dL (70-99) Calcium Level 8.5 mg/dL (8.5-10.1) Test 08/21/18 17:21 08/21/18 20:03 08/22/18 05:25 Glucose (Fingerstick) 108 mg/dL (70-99) 137 mg/dL (70-99) White Blood Count 4.2 x10^3/uL (4.0-11.0) Red Blood Count 3.51 x10^6/uL (3.50-5.40) Hemoglobin 9.8 g/dL (12.0-15.5) Hematocrit 29.5 % (36.0-47.0) Mean Corpuscular Volume 84 fL (79-100) Mean Corpuscular Hemoglobin 28 pg (25-35) Mean Corpuscular Hemoglobin Concent 33 g/dL (31-37) Red Cell Distribution Width 14.6 % (11.5-14.5) Platelet Count 93 x10^3/uL (140-400) Neutrophils (%) (Auto) 63 % (31-73) Lymphocytes (%) (Auto) 26 % (24-48) Monocytes (%) (Auto) 7 % (0-9) Eosinophils (%) (Auto) 3 % (0-3) Basophils (%) (Auto) 1 % (0-3) Neutrophils # (Auto) 2.7 x10^3uL (1.8-7.7) Lymphocytes # (Auto) 1.1 x10^3/uL (1.0-4.8) Monocytes # (Auto) 0.3 x10^3/uL (0.0-1.1) Eosinophils # (Auto) 0.1 x10^3/uL (0.0-0.7) Basophils # (Auto) 0.0 x10^3/uL (0.0-0.2) Sodium Level 141 mmol/L (136-145) Potassium Level 3.9 mmol/L (3.5-5.1) Chloride Level 104 mmol/L (98-107) Carbon Dioxide Level 30 mmol/L (21-32) Anion Gap 7 (6-14) Blood Urea Nitrogen 19 mg/dL (7-20) Creatinine 1.6 mg/dL (0.6-1.0) Estimated GFR (Cockcroft-Gault) 32.9 Glucose Level 126 mg/dL (70-99) Calcium Level 8.6 mg/dL (8.5-10.1) Laboratory Tests Test 08/21/18 11:50 08/21/18 17:21 08/21/18 20:03 08/22/18 05:25 Glucose (Fingerstick) 102 mg/dL (70-99) 108 mg/dL (70-99) 137 mg/dL (70-99) White Blood Count 4.2 x10^3/uL (4.0-11.0) Red Blood Count 3.51 x10^6/uL (3.50-5.40) Hemoglobin 9.8 g/dL (12.0-15.5) Hematocrit 29.5 % (36.0-47.0) Mean Corpuscular Volume 84 fL (79-100) Mean Corpuscular Hemoglobin 28 pg (25-35) Mean Corpuscular Hemoglobin Concent 33 g/dL (31-37) Red Cell Distribution Width 14.6 % (11.5-14.5) Platelet Count 93 x10^3/uL (140-400) Neutrophils (%) (Auto) 63 % (31-73) Lymphocytes (%) (Auto) 26 % (24-48) Monocytes (%) (Auto) 7 % (0-9) Eosinophils (%) (Auto) 3 % (0-3) Basophils (%) (Auto) 1 % (0-3) Neutrophils # (Auto) 2.7 x10^3uL (1.8-7.7) Lymphocytes # (Auto) 1.1 x10^3/uL (1.0-4.8) Monocytes # (Auto) 0.3 x10^3/uL (0.0-1.1) Eosinophils # (Auto) 0.1 x10^3/uL (0.0-0.7) Basophils # (Auto) 0.0 x10^3/uL (0.0-0.2) Sodium Level 141 mmol/L (136-145) Potassium Level 3.9 mmol/L (3.5-5.1) Chloride Level 104 mmol/L (98-107) Carbon Dioxide Level 30 mmol/L (21-32) Anion Gap 7 (6-14) Blood Urea Nitrogen 19 mg/dL (7-20) Creatinine 1.6 mg/dL (0.6-1.0) Estimated GFR (Cockcroft-Gault) 32.9 Glucose Level 126 mg/dL (70-99) Calcium Level 8.6 mg/dL (8.5-10.1) Medications Active Scripts Medications Dose Route/Sig Max Daily Dose Days Date Category Levemir Flextouch (Insulin Detemir) 100 Unit/1 Ml Insuln.pen 18 Units SQ QHS 10/17/15 Rx Novolog Flexpen (Insulin Aspart) 100 Unit/1 Ml Insuln.pen 10 Units SQ TIDAC 10/17/15 Rx Topamax (Topiramate) 25 Mg Tablet 25 Mg PO HS 03/18/15 Rx Wellbutrin Sr (Bupropion Hcl) 150 Mg Tablet.er 1 Tab PO BID 03/11/15 Reported Aspirin 81 Mg Tab.chew 1 Tab PO DAILY 03/11/15 Reported Montelukast Sodium Tablet (Montelukast Sodium) 10 Mg Tablet 10 Mg PO HS 03/11/15 Reported Tizanidine Hcl 4 Mg Tablet 1 Tab PO BID 03/11/15 Reported Combivent Respimat Inhal (Ipratropium/Albuterol Sulfate) 4 Gm Aer.w.adap 2 Inh IH QID 11/28/14 Rx Lasix (Furosemide) 40 Mg Tablet 1 Tab PO DAILY 10/25/14 Rx Aldactone (Spironolactone) 25 Mg Tablet 25 Mg PO DAILY 10/25/14 Rx Klor-Con M20 (Potassium Chloride) 20 Meq Tablet.er 40 Meq PO DAILY 10/25/14 Rx Nystop (Nystatin) 1 Omid Omid 1 Omid TP BID PRN 10/25/14 Rx [Aspirin] 325 MG Tablet. 325 Mg PO DAILYWBKFT 10/25/14 Rx Carvedilol 6.25 Mg Tablet 6.25 Mg PO BIDWMEALS 10/22/14 Reported Pantoprazole Sodium 40 Mg Tablet. 40 Mg PO DAILY 10/22/14 Reported Alprazolam 1 Mg Tab.rapdis 1 Mg PO Q4HRS PRN 02/04/14 Reported Impression . IMPRESSION: 1. [id number] hypercapnic respiratory failure 2. Acute metabolic and toxic encephalopathy. 3. Underlying chronic obstructive pulmonary disease. 4. Suspected obstructive sleep apnea/obesity hypoventilation syndrome. 5. Thrombocytopenia, needs to closely watch. 6. AECOPD 7. Acute kidney injury. Plan . PT AT TIMES CONFUSED PT TO AVOID NARCOTICS AND BENZO COMBINATION 02 N/C PER BIPAP SLEEP STUDY OUT PT AVOID SMOKING CCT 30 MINUTES CHA RAZA MD Aug 22, 2018 08:39
[2018-08-22] MEDS: IPRATRPIUM/ALBUTEROL 0.5/2.5MG 3 ML NEBU. NEB SCH ×4 (08:57→20:08)
[2018-08-22] MEDS: SENNOSIDES/DOCUSATE 8.6/50MG TABLET. PO SCH ×2 (09:00→20:26)
[2018-08-22] MEDS: PATCH REMOVAL. MC SCH (09:00)
--- NOTE | 2018-08-22 09:07 | PDOC ---
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 on NC on duoneb, add albuterol prn decrease insulin to lantus 15u qhs, aspart 5u tid, ssi cough meds dvt ppx PTOT History of Present Illness History of Present Illness 58 yo F w/ PMHx HTN, DM, chronic benzo dependence, COPD on 3L NCO2 at home was brought here by EMS for evaluation of confusion at home per her . He checked her blood glucose and the meter read high (>500), gave her 30 units of lispro insulin. In ED she was difficult to arouse, ABG 7.24/80/130, started on BIPAP. Hb 11, no leukocytosis. Patient had history of COPD, on 3 L of oxygen at home. Patient and her stated that she ran out of her oxygen, not sure how long. Improved with BIPAP yesterday and overnight, still drowsy this morning. She is asking to eat and go home, advised we need to ensure she has home O2 as that was the reason she arrived. Denies cough, no CP, no pain complaints. Mildly anxious. refuse BIpap wants go home Vitals Vitals Vital Signs Date Time Temp Pulse Resp B/P (MAP) Pulse Ox O2 Delivery O2 Flow Rate FiO2 08/22/18 08:54 98 Nasal Cannula 2.0 08/22/18 07:45 97.6 72 156/78 (104) 97.6 08/22/18 04:45 18 Physical Exam General: Alert, Oriented X3, Cooperative, mild distress, Other (, easily aroused) Heart: Regular rate, Normal S1 Lungs: Other (POOR AIRFLOW, bl moderate decreased bs, no wheezing or rales) Abdomen: Normal bowel sounds, Soft, No tenderness, No hepatosplenomegaly, No masses Extremities: No clubbing, No cyanosis, Normal pulses, No tenderness/swelling, Other (Scant edema, covered in leaves and feces) Skin: No rashes, No breakdown, No significant lesion Labs LABS Laboratory Tests Test 08/21/18 11:50 08/21/18 17:21 08/21/18 20:03 08/22/18 05:25 Glucose (Fingerstick) 102 mg/dL (70-99) 108 mg/dL (70-99) 137 mg/dL (70-99) White Blood Count 4.2 x10^3/uL (4.0-11.0) Red Blood Count 3.51 x10^6/uL (3.50-5.40) Hemoglobin 9.8 g/dL (12.0-15.5) Hematocrit 29.5 % (36.0-47.0) Mean Corpuscular Volume 84 fL (79-100) Mean Corpuscular Hemoglobin 28 pg (25-35) Mean Corpuscular Hemoglobin Concent 33 g/dL (31-37) Red Cell Distribution Width 14.6 % (11.5-14.5) Platelet Count 93 x10^3/uL (140-400) Neutrophils (%) (Auto) 63 % (31-73) Lymphocytes (%) (Auto) 26 % (24-48) Monocytes (%) (Auto) 7 % (0-9) Eosinophils (%) (Auto) 3 % (0-3) Basophils (%) (Auto) 1 % (0-3) Neutrophils # (Auto) 2.7 x10^3uL (1.8-7.7) Lymphocytes # (Auto) 1.1 x10^3/uL (1.0-4.8) Monocytes # (Auto) 0.3 x10^3/uL (0.0-1.1) Eosinophils # (Auto) 0.1 x10^3/uL (0.0-0.7) Basophils # (Auto) 0.0 x10^3/uL (0.0-0.2) Sodium Level 141 mmol/L (136-145) Potassium Level 3.9 mmol/L (3.5-5.1) Chloride Level 104 mmol/L (98-107) Carbon Dioxide Level 30 mmol/L (21-32) Anion Gap 7 (6-14) Blood Urea Nitrogen 19 mg/dL (7-20) Creatinine 1.6 mg/dL (0.6-1.0) Estimated GFR (Cockcroft-Gault) 32.9 Glucose Level 126 mg/dL (70-99) Calcium Level 8.6 mg/dL (8.5-10.1) Assessment and Plan Assessmemt and Plan Problems Medical Problems: (1) Hypercapnic respiratory failure Status: Acute (2) Hyperglycemia Status: Acute Comment Review of Relevant I have reviewed the following items kylee (where applicable) has been applied. Labs Laboratory Tests Test 08/20/18 09:25 08/20/18 10:30 08/20/18 12:34 08/20/18 17:47 White Blood Count 3.6 x10^3/uL (4.0-11.0) Red Blood Count 3.50 x10^6/uL (3.50-5.40) Hemoglobin 9.6 g/dL (12.0-15.5) Hematocrit 29.5 % (36.0-47.0) Mean Corpuscular Volume 84 fL (79-100) Mean Corpuscular Hemoglobin 28 pg (25-35) Mean Corpuscular Hemoglobin Concent 33 g/dL (31-37) Red Cell Distribution Width 14.7 % (11.5-14.5) Platelet Count 83 x10^3/uL (140-400) Sodium Level 140 mmol/L (136-145) Potassium Level 4.4 mmol/L (3.5-5.1) Chloride Level 104 mmol/L (98-107) Carbon Dioxide Level 31 mmol/L (21-32) Anion Gap 5 (6-14) Blood Urea Nitrogen 20 mg/dL (7-20) Creatinine 1.6 mg/dL (0.6-1.0) Estimated GFR (Cockcroft-Gault) 32.9 Glucose Level 207 mg/dL (70-99) Calcium Level 8.4 mg/dL (8.5-10.1) O2 Saturation 95 % (92-99) Arterial Blood pH 7.35 (7.35-7.45) Arterial Blood pCO2 at Patient Temp 50 mmHg (35-46) Arterial Blood pO2 at Patient Temp 81 mmHg (65-108) Arterial Blood HCO3 27 mmol/L (21-28) Arterial Blood Base Excess 1 mmol/L (-3-3) FiO2 28 Glucose (Fingerstick) 145 mg/dL (70-99) 113 mg/dL (70-99) Test 08/20/18 20:54 08/21/18 06:00 08/21/18 08:22 08/21/18 11:50 Glucose (Fingerstick) 158 mg/dL (70-99) 155 mg/dL (70-99) 102 mg/dL (70-99) White Blood Count 3.8 x10^3/uL (4.0-11.0) Red Blood Count 3.40 x10^6/uL (3.50-5.40) Hemoglobin 9.2 g/dL (12.0-15.5) Hematocrit 28.5 % (36.0-47.0) Mean Corpuscular Volume 84 fL (79-100) Mean Corpuscular Hemoglobin 27 pg (25-35) Mean Corpuscular Hemoglobin Concent 32 g/dL (31-37) Red Cell Distribution Width 15.0 % (11.5-14.5) Platelet Count 87 x10^3/uL (140-400) Sodium Level 142 mmol/L (136-145) Potassium Level 3.8 mmol/L (3.5-5.1) Chloride Level 105 mmol/L (98-107) Carbon Dioxide Level 29 mmol/L (21-32) Anion Gap 8 (6-14) Blood Urea Nitrogen 20 mg/dL (7-20) Creatinine 1.6 mg/dL (0.6-1.0) Estimated GFR (Cockcroft-Gault) 32.9 Glucose Level 137 mg/dL (70-99) Calcium Level 8.5 mg/dL (8.5-10.1) Test 08/21/18 17:21 08/21/18 20:03 08/22/18 05:25 Glucose (Fingerstick) 108 mg/dL (70-99) 137 mg/dL (70-99) White Blood Count 4.2 x10^3/uL (4.0-11.0) Red Blood Count 3.51 x10^6/uL (3.50-5.40) Hemoglobin 9.8 g/dL (12.0-15.5) Hematocrit 29.5 % (36.0-47.0) Mean Corpuscular Volume 84 fL (79-100) Mean Corpuscular Hemoglobin 28 pg (25-35) Mean Corpuscular Hemoglobin Concent 33 g/dL (31-37) Red Cell Distribution Width 14.6 % (11.5-14.5) Platelet Count 93 x10^3/uL (140-400) Neutrophils (%) (Auto) 63 % (31-73) Lymphocytes (%) (Auto) 26 % (24-48) Monocytes (%) (Auto) 7 % (0-9) Eosinophils (%) (Auto) 3 % (0-3) Basophils (%) (Auto) 1 % (0-3) Neutrophils # (Auto) 2.7 x10^3uL (1.8-7.7) Lymphocytes # (Auto) 1.1 x10^3/uL (1.0-4.8) Monocytes # (Auto) 0.3 x10^3/uL (0.0-1.1) Eosinophils # (Auto) 0.1 x10^3/uL (0.0-0.7) Basophils # (Auto) 0.0 x10^3/uL (0.0-0.2) Sodium Level 141 mmol/L (136-145) Potassium Level 3.9 mmol/L (3.5-5.1) Chloride Level 104 mmol/L (98-107) Carbon Dioxide Level 30 mmol/L (21-32) Anion Gap 7 (6-14) Blood Urea Nitrogen 19 mg/dL (7-20) Creatinine 1.6 mg/dL (0.6-1.0) Estimated GFR (Cockcroft-Gault) 32.9 Glucose Level 126 mg/dL (70-99) Calcium Level 8.6 mg/dL (8.5-10.1) Laboratory Tests Test 08/21/18 11:50 08/21/18 17:21 08/21/18 20:03 08/22/18 05:25 Glucose (Fingerstick) 102 mg/dL (70-99) 108 mg/dL (70-99) 137 mg/dL (70-99) White Blood Count 4.2 x10^3/uL (4.0-11.0) Red Blood Count 3.51 x10^6/uL (3.50-5.40) Hemoglobin 9.8 g/dL (12.0-15.5) Hematocrit 29.5 % (36.0-47.0) Mean Corpuscular Volume 84 fL (79-100) Mean Corpuscular Hemoglobin 28 pg (25-35) Mean Corpuscular Hemoglobin Concent 33 g/dL (31-37) Red Cell Distribution Width 14.6 % (11.5-14.5) Platelet Count 93 x10^3/uL (140-400) Neutrophils (%) (Auto) 63 % (31-73) Lymphocytes (%) (Auto) 26 % (24-48) Monocytes (%) (Auto) 7 % (0-9) Eosinophils (%) (Auto) 3 % (0-3) Basophils (%) (Auto) 1 % (0-3) Neutrophils # (Auto) 2.7 x10^3uL (1.8-7.7) Lymphocytes # (Auto) 1.1 x10^3/uL (1.0-4.8) Monocytes # (Auto) 0.3 x10^3/uL (0.0-1.1) Eosinophils # (Auto) 0.1 x10^3/uL (0.0-0.7) Basophils # (Auto) 0.0 x10^3/uL (0.0-0.2) Sodium Level 141 mmol/L (136-145) Potassium Level 3.9 mmol/L (3.5-5.1) Chloride Level 104 mmol/L (98-107) Carbon Dioxide Level 30 mmol/L (21-32) Anion Gap 7 (6-14) Blood Urea Nitrogen 19 mg/dL (7-20) Creatinine 1.6 mg/dL (0.6-1.0) Estimated GFR (Cockcroft-Gault) 32.9 Glucose Level 126 mg/dL (70-99) Calcium Level 8.6 mg/dL (8.5-10.1) Medications Current Medications Sodium Chloride 1,000 ml @ 1,000 mls/hr Q1H IV Last administered on 08/19/18at 12:04; Start 08/19/18 at 11:37; Stop 08/19/18 at 12:36; Status DC Albuterol/ Ipratropium (Duoneb) 3 ml 1X ONCE NEB Last administered on at 12:36; Start 08/19/18 at 12:15; Stop 08/19/18 at 12:24; Status DC Ondansetron HCl (Zofran) 4 mg PRN Q8HRS PRN IV NAUSEA/VOMITING; Start 08/19/18 at 13:15; Stop 08/20/18 at 08:06; Status DC Ondansetron HCl (Zofran) 4 mg PRN Q6HRS PRN IV NAUSEA/VOMITING; Start 08/19/18 at 15:00 Heparin Sodium (Porcine) (Heparin Sodium) 5,000 unit Q12HR SQ Last administered on 08/21/18at 20:01; Start 08/19/18 at 21:00 Sodium Chloride (Normal Saline Flush) 3 ml QSHIFT PRN IV AFTER MEDS AND BLOOD DRAWS; Start 08/19/18 at 15:00 Senna/Docusate Sodium (Senna Plus) 1 tab BID PO Last administered on 08/20/18 20:30; Start 08/19/18 at 21:00 Lactulose (Lactulose) 20 gm PRN Q12HR PRN PO CONSTIPATION; Start 08/19/18 at 15 :00 Insulin Human Lispro (HumaLOG) 0-7 UNITS TIDWMEALS SQ Last administered on 08/20 08:39; Start 08/19/18 at 17:00; Stop 08/20/18 at 18:05; Status DC Dextrose (Dextrose 50%-Water Syringe) 12.5 gm PRN Q15MIN PRN IV SEE COMMENTS; Start 08/19/18 at 15:00 Aspirin (Children'S Aspirin) 81 mg DAILY PO Last administered on 08/21/18 08: 23; Start 08/20/18 at 09:00 Bupropion HCl (Wellbutrin Sr) 150 mg BID PO Last administered on 08/21/18 19: 56; Start 08/19/18 at 21:00 Carvedilol (Coreg) 6.25 mg BIDWMEALS PO Last administered on 08/21/18 17:37; Start 08/19/18 at 17:00 Nystatin (Nystop) 1 omid PRN BID PRN TP Yeast infection Last administered on 16:36; Start 08/19/18 at 15:00 Pantoprazole Sodium (Protonix) 40 mg DAILYAC PO Last administered on 08/21/18 08:23; Start 08/20/18 at 07:30 Insulin Human Lispro (HumaLOG) 10 units TIDWMEALS SQ Last administered on 08:25; Start 08/19/18 at 17:00; Stop 08/21/18 at 09:09; Status DC Insulin Glargine (Lantus) 18 units QHS SQ Last administered on 08/20/18 20:55 ; Start 08/19/18 at 21:00; Stop 08/21/18 at 14:06; Status DC Non-Formulary Medication (Ipratropium/ Albuterol Sulfate (Combivent Respimat Inhal)) 2 inh QID IH ; Start 08/19/18 at 17:00; Stop 08/19/18 at 17:00; Status DC Montelukast Sodium (Singulair) 10 mg QHS PO Last administered on 08/21/18 19: 55; Start 08/19/18 at 21:00 Albuterol/ Ipratropium (Duoneb) 3 ml RTQID NEB Last administered on 08/22/18 08:57; Start 08/19/18 at 16:00 Alprazolam (Xanax) 0.25 mg PRN Q8HRS PRN PO ANXIETY / AGITATION Last administered on 08/21/18 19:55; Start 08/19/18 at 21:00 Tramadol HCl (Ultram) 50 mg PRN Q6HRS PRN PO PAIN Last administered on 02:28; Start 08/19/18 at 21:00 Guaifenesin (Robitussin) 200 mg PRN Q4HRS PRN PO COUGH Last administered on 22:29; Start 08/19/18 at 21:00 Lorazepam (Ativan) 1 mg PRN Q6HRS PRN IV ANXIETY / AGITATION Last administered on 08/21/18at 21:16; Start 08/20/18 at 01:45 Insulin Human Lispro (HumaLOG) 0-9 UNITS TIDWMEALS SQ Last administered on 08/21 08:26; Start 08/21/18 at 08:00 Insulin Human Lispro (HumaLOG) 6 units TIDWMEALS SQ Last administered on at 12:14; Start 08/21/18 at 12:00; Stop 08/21/18 at 14:06; Status DC Insulin Glargine (Lantus) 15 units QHS SQ Last administered on 08/21/18at 20:08 ; Start 08/21/18 at 21:00 Insulin Human Lispro (HumaLOG) 5 units TIDWMEALS SQ Last administered on at 17:37; Start 08/21/18 at 17:00 Albuterol Sulfate (Ventolin Neb Soln) 2.5 mg PRN Q4HRS PRN NEB SHORTNESS OF BREATH; Start 08/21/18 at 14:15 Lidocaine (Lidoderm) 1 patch QHS TD Last administered on 08/21/18at 21:17; Start 08/21/18 at 20:30 Miscellaneous (Lidoderm Patch Removal) 1 ea DAILY MC ; Start 08/22/18 at 09:00 Active Scripts Active Levemir Flextouch (Insulin Detemir) 100 Unit/1 Ml Insuln.pen 18 Units SQ QHS Novolog Flexpen (Insulin Aspart) 100 Unit/1 Ml Insuln.pen 10 Units SQ TIDAC Topamax (Topiramate) 25 Mg Tablet 25 Mg PO HS Combivent Respimat Inhal (Ipratropium/Albuterol Sulfate) 4 Gm Aer.w.adap 2 Inh IH QID Lasix (Furosemide) 40 Mg Tablet 1 Tab PO DAILY Aldactone (Spironolactone) 25 Mg Tablet 25 Mg PO DAILY Klor-Con M20 (Potassium Chloride) 20 Meq Tablet.er 40 Meq PO DAILY Nystop (Nystatin) 1 Omid Omid 1 Omid TP BID PRN [Aspirin] 325 MG Tablet.dr 325 Mg PO DAILYWBKFT Reported Wellbutrin Sr (Bupropion Hcl) 150 Mg Tablet.er 1 Tab PO BID Aspirin 81 Mg Tab.chew 1 Tab PO DAILY Montelukast Sodium Tablet (Montelukast Sodium) 10 Mg Tablet 10 Mg PO HS Tizanidine Hcl 4 Mg Tablet 1 Tab PO BID Carvedilol 6.25 Mg Tablet 6.25 Mg PO BIDWMEALS Pantoprazole Sodium 40 Mg Tablet.dr 40 Mg PO DAILY Alprazolam 1 Mg Tab.rapdis 1 Mg PO Q4HRS PRN Vitals/I & O Vital Sign - Last 24 Hours 08/21/18 08/21/18 08/21/18 08/21/18 10:00 10:06 11:00 12:00 Pulse 71 69 Resp 19 19 B/P (MAP) 144/84 (104) 123/61 (81) Pulse Ox 100 98 97 O2 Delivery Nasal Cannula Nasal Cannula Nasal Cannula O2 Flow Rate 2.0 2.0 2.0 2.0 08/21/18 08/21/18 08/21/18 08/21/18 12:00 12:54 13:00 14:20 Temp 97.6 97.6 Pulse 69 85 Resp 23 25 B/P (MAP) 165/80 (108) 107/75 (86) Pulse Ox 100 98 100 O2 Delivery Nasal Cannula Nasal Cannula Nasal Cannula Nasal Cannula O2 Flow Rate 2.0 2.0 2.0 2.0 08/21/18 08/21/18 08/21/18 08/21/18 15:00 16:00 17:37 19:00 Temp 98.4 98.4 Pulse 70 75 82 Resp 21 22 B/P (MAP) 99/88 (92) 154/73 Pulse Ox 100 O2 Delivery Nasal Cannula Nasal Cannula O2 Flow Rate 2.0 2.0 2.0 08/21/18 08/21/18 08/21/18 08/21/18 20:00 20:00 20:00 23:00 Temp 97.5 97.5 Pulse 78 76 Resp 19 22 B/P (MAP) 128/43 (71) 133/61 (85) O2 Delivery Nasal Cannula Nasal Cannula Room Air O2 Flow Rate 2.0 2.0 2.0 08/22/18 08/22/18 08/22/18 08/22/18 00:00 00:00 00:00 02:28 Temp 97.8 97.8 Pulse 78 Resp 18 16 B/P (MAP) 155/77 (103) Pulse Ox 97 97 O2 Delivery Nasal Cannula Nasal Cannula O2 Flow Rate 2.0 2.0 2.0 2.0 08/22/18 08/22/18 08/22/18 08/22/18 02:45 03:28 03:45 04:00 Temp 97.6 97.6 Pulse 70 70 Resp 18 16 14 B/P (MAP) 140/77 (98) 164/101 (122) Pulse Ox 97 94 O2 Delivery Nasal Cannula Nasal Cannula Nasal Cannula O2 Flow Rate 2.0 2.0 2.0 2.0 08/22/18 08/22/18 08/22/18 08/22/18 04:45 05:00 07:45 08:54 Temp 97.6 97.6 Pulse 94 72 72 Resp 18 B/P (MAP) 177/116 (136) 140/82 (101) 156/78 (104) Pulse Ox 94 94 98 O2 Delivery Nasal Cannula Nasal Cannula O2 Flow Rate 2.0 2.0 2.0 Intake and Output 08/21/18 08/21/18 08/22/18 15:00 23:00 07:00 Intake Total 840 ml 50 ml Output Total 300 ml Balance 840 ml -250 ml ACE ZELAYA MD Aug 22, 2018 09:07
[2018-08-22] MEDS: PANTOPRAZOLE 40 MG TABLET.DR. PO SCH (09:29)
[2018-08-22] MEDS: buPROPion SR 150 MG TABLET.SA PO SCH ×2 (09:29→20:26)
[2018-08-22] MEDS: CARVEDILOL 6.25 MG TABLET. PO SCH ×2 (09:29→15:57)
[2018-08-22] MEDS: ALPRAZolam 0.25 MG TABLET PO PRN (09:34)
[2018-08-22] MEDS: ASPIRIN CHEWABLE 81 MG TABLET. PO SCH (09:57)
[2018-08-22] MEDS: HEPARIN for SUB-Q USE 5,000 UNIT/ML VIAL. SQ SCH ×2 (10:02→20:36)
[2018-08-22] MEDS: NYSTATIN TOPICAL POWDER 15GM BOTTLE. TP PRN (10:04)
[2018-08-22] MEDS: OXYBUTYNIN CHLORIDE 5 MG TABLET PO SCH ×2 (15:57→20:26)
[2018-08-22] MEDS: HYDROcodone/APAP 7.5/325MG 1 TAB TABLET PO PRN ×2 (15:57→22:35)
[2018-08-22] MEDS: MONTELUKAST SODIUM 10 MG TABLET. PO SCH (20:26)
[2018-08-22] MEDS: INSULIN GLARGINE 300 UNITS/3 ML INSULN.PEN. SQ SCH (20:36)
[2018-08-22] MEDS: LIDOCAINE (700MG/PATCH) PATCH. TD SCH (20:39)
--- NOTE | 2018-08-23 01:28 | CONS ---
DATE OF CONSULTATION: 08/22/2018 ATTENDING PHYSICIAN: Pablo Salas her family physician. HISTORY OF PRESENT ILLNESS: This is a 58-year-old female patient with known hypertension, recently diagnosed as having diabetes mellitus, chronic benzodiazepine dependence, chronic obstructive pulmonary disease, on 3 L of oxygen by nasal cannula at home, admitted through the emergency room on 08/19/2018 with confusion at home. The patient apparently ran out of home oxygen. She was noted with a blood sugar of more than 500 and she was found difficult to arouse. The patient was started on BiPAP. The patient with known congestive heart failure, hypertension, asthmatic bronchitis, gastroesophageal reflux disease, anxiety, depression, osteoarthritis, chronic renal insufficiency, urinary frequency, and incontinence without any dysuria, status post tonsillectomy, hysterectomy, chronic lower back pain. The patient had family history of diabetes mellitus. ALLERGIES: She is known allergic to FISH CONTAINING PRODUCTS, PENICILLIN, SULFA, CODEINE, and MORPHINE, but has taken tramadol and hydrocodone in the past. The patient lives with her , had stairs to manage. She had a cane, walker and wheelchair. As per her , she does not get up and do that much. The patient since admission is being treated for hypercapnic respiratory failure, hyperglycemia. The patient complains of lower back pain. She denies any radiation of pain to the extremities or any tingling or numbness sensation in the extremities. PHYSICAL EXAMINATION: Today revealed a middle-aged female. She is alert, oriented to time, place, person and circumstance and follows commands appropriately. She is still having some difficulty with her memory. The patient had painful limited movements of her lumbar spine with tenderness to palpation over lumbar paraspinal muscles extending over to sacroiliac joint area and to some extent over trochanteric bursa bilaterally. She had 5/5 grade muscle strength in her extremities. Deep tendon reflexes are 1-2+ and symmetrical with absent right ankle jerk. She had equal perception of touch and pinprick sensation bilaterally. She had crepitus on range of motion of both knee joints without any obvious knee joint effusion. She had pain-free range of motion on both hip joints. She is independent with bed mobility and transfers and she is using proper body mechanics during mobility. She got up and walked with physical therapy without any loss of balance. She is using oxygen by nasal cannula. ASSESSMENT: 1. A middle-aged female with chronic lower back pain from degenerative disk disease of lumbar vertebrae without any clinical evidence of ongoing lumbar radiculopathy. 2. Bilateral trochanteric bursitis. 3. Degenerative joints of both knees without much pain. 4. History of hypertension, congestive heart failure, asthmatic bronchitis, chronic obstructive pulmonary disease, oxygen dependent, gastroesophageal reflux disease, anxiety, depression, chronic renal insufficiency and urinary frequency and urgency and the patient is being treated for hypercapnic respiratory failure and hyperglycemia and she also presents with some cognitive deficits. RECOMMENDATION: To try hydrocodone for better pain control. I have reviewed with her a home program of physical modalities and stretching exercise to her lower back and proper body mechanics. She states that she could not take any steroid injections. The patient was advised to use a lumbar corset while up hopefully home with outpatient followup when medically stable. Dr. Shook, I appreciate asking me to participate in care of this interesting patient. I will be glad to follow her with you as needed for her rehabilitation. KIERA MOREIRA MD DR: WHITNEY/millie JOB#: [id number] / [id number] PABLO Menon MD
[2018-08-23 03:27] VITALS: BP 114/48
[2018-08-23] MEDS: HYDROcodone/APAP 7.5/325MG 1 TAB TABLET PO PRN ×2 (04:25→12:14)
[2018-08-23 06:09] LABS: BASO % 1 % (0-3); EOS # 0.2 x10^3/uL (0.0-0.7); EOS % 3 % (0-3); HEMATOCRIT 30.4 % (36.0-47.0); HEMOGLOBIN 9.8 g/dL (12.0-15.5); LYMPH # 1.3 x10^3/uL (1.0-4.8); LYMPH % 26 % (24-48); MEAN CORPUSCULAR HEMOGLOBIN 27 pg (25-35); MEAN CORPUSCULAR HGB CONC 32 g/dL (31-37); MEAN CORPUSCULAR VOLUME 84 fL (79-100); MONO # 0.4 x10^3/uL (0.0-1.1); MONO % 8 % (0-9); NEUT % 62 % (31-73); PLATELET COUNT 103 x10^3/uL (140-400); RED BLOOD COUNT 3.61 x10^6/uL (3.50-5.40); RED CELL DISTRIBUTION WIDTH 15.1 % (11.5-14.5); WHITE BLOOD COUNT 4.8 x10^3/uL (4.0-11.0)
[2018-08-23] MEDS: PANTOPRAZOLE 40 MG TABLET.DR. PO SCH (06:09)
[2018-08-23 06:31] LABS: ALBUMIN 2.9 g/dL (3.4-5.0); ALBUMIN/GLOBULIN RATIO 0.8 (1.0-1.7); CALCIUM 8.4 mg/dL (8.5-10.1); CREATININE 1.7 mg/dL (0.6-1.0); GFR 30.7; POTASSIUM 3.8 mmol/L (3.5-5.1); TOTAL BILIRUBIN 0.6 mg/dL (0.2-1.0); TOTAL PROTEIN 6.7 g/dL (6.4-8.2)
[2018-08-23 07:00] VITALS: BP 148/68
[2018-08-23] MEDS: IPRATRPIUM/ALBUTEROL 0.5/2.5MG 3 ML NEBU. NEB SCH ×2 (07:12→13:00)
[2018-08-23] MEDS: INSULIN LISPRO 300 UNITS/3 ML INSULN.PEN. SQ SCH ×4 (08:00→12:00)
[2018-08-23] MEDS: OXYBUTYNIN CHLORIDE 5 MG TABLET PO SCH (08:10)
[2018-08-23] MEDS: SENNOSIDES/DOCUSATE 8.6/50MG TABLET. PO SCH (08:10)
[2018-08-23] MEDS: buPROPion SR 150 MG TABLET.SA PO SCH (08:10)
[2018-08-23] MEDS: ASPIRIN CHEWABLE 81 MG TABLET. PO SCH (08:10)
[2018-08-23] MEDS: NYSTATIN TOPICAL POWDER 15GM BOTTLE. TP PRN (08:11)
[2018-08-23] MEDS: CARVEDILOL 6.25 MG TABLET. PO SCH (08:11)
[2018-08-23] MEDS: HEPARIN for SUB-Q USE 5,000 UNIT/ML VIAL. SQ SCH (08:21)
[2018-08-23] MEDS: PATCH REMOVAL. MC SCH (09:00)
--- NOTE | 2018-08-23 10:11 | PDOC ---
PROGRESS NOTES Subjective Subjective No new complaints. Objective Objective Vital Signs Date Time Temp Pulse Resp B/P (MAP) Pulse Ox O2 Delivery O2 Flow Rate FiO2 08/23/18 08:11 69 148/80 08/23/18 07:12 96 Nasal Cannula 2.0 08/23/18 05:24 16 08/23/18 03:27 97.8 97.8 Intake and Output 08/23/18 07:00 Intake Total 970 ml Output Total 1 ml Balance 969 ml Intake Oral 970 ml Output Urine Total 1 ml # Voids 3 # Bowel Movements 1 Physical Exam Physical Exam She is comfortable and supine in bed and she continues with painfully limited lumbar spine ROM with tenderness to palpation over sacroiliac joints and lumbar paraspinal muscles but got up and walking with supervision. Assessment Assessment Problems Medical Problems: (1) Hypercapnic respiratory failure Status: Acute (2) Hyperglycemia Status: Acute Plan Plan of Care Agree with plans for transfer to SNF if she qualifies. Comment Review of Relevant I have reviewed the following items kylee (where applicable) has been applied. Labs Laboratory Tests Test 08/21/18 11:50 08/21/18 17:21 08/21/18 20:03 08/22/18 05:25 Glucose (Fingerstick) 102 mg/dL (70-99) 108 mg/dL (70-99) 137 mg/dL (70-99) White Blood Count 4.2 x10^3/uL (4.0-11.0) Red Blood Count 3.51 x10^6/uL (3.50-5.40) Hemoglobin 9.8 g/dL (12.0-15.5) Hematocrit 29.5 % (36.0-47.0) Mean Corpuscular Volume 84 fL (79-100) Mean Corpuscular Hemoglobin 28 pg (25-35) Mean Corpuscular Hemoglobin Concent 33 g/dL (31-37) Red Cell Distribution Width 14.6 % (11.5-14.5) Platelet Count 93 x10^3/uL (140-400) Neutrophils (%) (Auto) 63 % (31-73) Lymphocytes (%) (Auto) 26 % (24-48) Monocytes (%) (Auto) 7 % (0-9) Eosinophils (%) (Auto) 3 % (0-3) Basophils (%) (Auto) 1 % (0-3) Neutrophils # (Auto) 2.7 x10^3uL (1.8-7.7) Lymphocytes # (Auto) 1.1 x10^3/uL (1.0-4.8) Monocytes # (Auto) 0.3 x10^3/uL (0.0-1.1) Eosinophils # (Auto) 0.1 x10^3/uL (0.0-0.7) Basophils # (Auto) 0.0 x10^3/uL (0.0-0.2) Sodium Level 141 mmol/L (136-145) Potassium Level 3.9 mmol/L (3.5-5.1) Chloride Level 104 mmol/L (98-107) Carbon Dioxide Level 30 mmol/L (21-32) Anion Gap 7 (6-14) Blood Urea Nitrogen 19 mg/dL (7-20) Creatinine 1.6 mg/dL (0.6-1.0) Estimated GFR (Cockcroft-Gault) 32.9 Glucose Level 126 mg/dL (70-99) Calcium Level 8.6 mg/dL (8.5-10.1) Test 08/22/18 09:28 08/22/18 12:18 08/22/18 17:35 08/22/18 20:28 Glucose (Fingerstick) 168 mg/dL (70-99) 126 mg/dL (70-99) 117 mg/dL (70-99) 154 mg/dL (70-99) Test 08/23/18 05:30 08/23/18 09:23 White Blood Count 4.8 x10^3/uL (4.0-11.0) Red Blood Count 3.61 x10^6/uL (3.50-5.40) Hemoglobin 9.8 g/dL (12.0-15.5) Hematocrit 30.4 % (36.0-47.0) Mean Corpuscular Volume 84 fL (79-100) Mean Corpuscular Hemoglobin 27 pg (25-35) Mean Corpuscular Hemoglobin Concent 32 g/dL (31-37) Red Cell Distribution Width 15.1 % (11.5-14.5) Platelet Count 103 x10^3/uL (140-400) Neutrophils (%) (Auto) 62 % (31-73) Lymphocytes (%) (Auto) 26 % (24-48) Monocytes (%) (Auto) 8 % (0-9) Eosinophils (%) (Auto) 3 % (0-3) Basophils (%) (Auto) 1 % (0-3) Neutrophils # (Auto) 3.0 x10^3uL (1.8-7.7) Lymphocytes # (Auto) 1.3 x10^3/uL (1.0-4.8) Monocytes # (Auto) 0.4 x10^3/uL (0.0-1.1) Eosinophils # (Auto) 0.2 x10^3/uL (0.0-0.7) Basophils # (Auto) 0.0 x10^3/uL (0.0-0.2) Sodium Level 141 mmol/L (136-145) Potassium Level 3.8 mmol/L (3.5-5.1) Chloride Level 104 mmol/L (98-107) Carbon Dioxide Level 30 mmol/L (21-32) Anion Gap 7 (6-14) Blood Urea Nitrogen 20 mg/dL (7-20) Creatinine 1.7 mg/dL (0.6-1.0) Estimated GFR (Cockcroft-Gault) 30.7 BUN/Creatinine Ratio 12 (6-20) Glucose Level 129 mg/dL (70-99) Calcium Level 8.4 mg/dL (8.5-10.1) Total Bilirubin 0.6 mg/dL (0.2-1.0) Aspartate Amino Transf (AST/SGOT) 15 U/L (15-37) Alanine Aminotransferase (ALT/SGPT) 13 U/L (14-59) Alkaline Phosphatase 71 U/L (46-116) Total Protein 6.7 g/dL (6.4-8.2) Albumin 2.9 g/dL (3.4-5.0) Albumin/Globulin Ratio 0.8 (1.0-1.7) Glucose (Fingerstick) 166 mg/dL (70-99) Laboratory Tests Test 08/22/18 12:18 08/22/18 17:35 08/22/18 20:28 08/23/18 05:30 Glucose (Fingerstick) 126 mg/dL (70-99) 117 mg/dL (70-99) 154 mg/dL (70-99) White Blood Count 4.8 x10^3/uL (4.0-11.0) Red Blood Count 3.61 x10^6/uL (3.50-5.40) Hemoglobin 9.8 g/dL (12.0-15.5) Hematocrit 30.4 % (36.0-47.0) Mean Corpuscular Volume 84 fL (79-100) Mean Corpuscular Hemoglobin 27 pg (25-35) Mean Corpuscular Hemoglobin Concent 32 g/dL (31-37) Red Cell Distribution Width 15.1 % (11.5-14.5) Platelet Count 103 x10^3/uL (140-400) Neutrophils (%) (Auto) 62 % (31-73) Lymphocytes (%) (Auto) 26 % (24-48) Monocytes (%) (Auto) 8 % (0-9) Eosinophils (%) (Auto) 3 % (0-3) Basophils (%) (Auto) 1 % (0-3) Neutrophils # (Auto) 3.0 x10^3uL (1.8-7.7) Lymphocytes # (Auto) 1.3 x10^3/uL (1.0-4.8) Monocytes # (Auto) 0.4 x10^3/uL (0.0-1.1) Eosinophils # (Auto) 0.2 x10^3/uL (0.0-0.7) Basophils # (Auto) 0.0 x10^3/uL (0.0-0.2) Sodium Level 141 mmol/L (136-145) Potassium Level 3.8 mmol/L (3.5-5.1) Chloride Level 104 mmol/L (98-107) Carbon Dioxide Level 30 mmol/L (21-32) Anion Gap 7 (6-14) Blood Urea Nitrogen 20 mg/dL (7-20) Creatinine 1.7 mg/dL (0.6-1.0) Estimated GFR (Cockcroft-Gault) 30.7 BUN/Creatinine Ratio 12 (6-20) Glucose Level 129 mg/dL (70-99) Calcium Level 8.4 mg/dL (8.5-10.1) Total Bilirubin 0.6 mg/dL (0.2-1.0) Aspartate Amino Transf (AST/SGOT) 15 U/L (15-37) Alanine Aminotransferase (ALT/SGPT) 13 U/L (14-59) Alkaline Phosphatase 71 U/L (46-116) Total Protein 6.7 g/dL (6.4-8.2) Albumin 2.9 g/dL (3.4-5.0) Albumin/Globulin Ratio 0.8 (1.0-1.7) Test 08/23/18 09:23 Glucose (Fingerstick) 166 mg/dL (70-99) Medications Current Medications Sodium Chloride 1,000 ml @ 1,000 mls/hr Q1H IV Last administered on 08/19/18at 12:04; Start 08/19/18 at 11:37; Stop 08/19/18 at 12:36; Status DC Albuterol/ Ipratropium (Duoneb) 3 ml 1X ONCE NEB Last administered on at 12:36; Start 08/19/18 at 12:15; Stop 08/19/18 at 12:24; Status DC Ondansetron HCl (Zofran) 4 mg PRN Q8HRS PRN IV NAUSEA/VOMITING; Start 08/19/18 at 13:15; Stop 08/20/18 at 08:06; Status DC Ondansetron HCl (Zofran) 4 mg PRN Q6HRS PRN IV NAUSEA/VOMITING Last administered on 08/23/18at 08:13; Start 08/19/18 at 15:00 Heparin Sodium (Porcine) (Heparin Sodium) 5,000 unit Q12HR SQ Last administered on 08/23/18at 08:21; Start 08/19/18 at 21:00 Sodium Chloride (Normal Saline Flush) 3 ml QSHIFT PRN IV AFTER MEDS AND BLOOD DRAWS; Start 08/19/18 at 15:00 Senna/Docusate Sodium (Senna Plus) 1 tab BID PO Last administered on 08/23/18at 08:10; Start 08/19/18 at 21:00 Lactulose (Lactulose) 20 gm PRN Q12HR PRN PO CONSTIPATION; Start 08/19/18 at 15 :00 Insulin Human Lispro (HumaLOG) 0-7 UNITS TIDWMEALS SQ Last administered on 08/20at 08:39; Start 08/19/18 at 17:00; Stop 08/20/18 at 18:05; Status DC Dextrose (Dextrose 50%-Water Syringe) 12.5 gm PRN Q15MIN PRN IV SEE COMMENTS; Start 08/19/18 at 15:00 Aspirin (Children'S Aspirin) 81 mg DAILY PO Last administered on 08/23/18at 08: 10; Start 08/20/18 at 09:00 Bupropion HCl (Wellbutrin Sr) 150 mg BID PO Last administered on 08/23/18at 08: 10; Start 08/19/18 at 21:00 Carvedilol (Coreg) 6.25 mg BIDWMEALS PO Last administered on 08/23/18at 08:11; Start 08/19/18 at 17:00 Nystatin (Nystop) 1 omid PRN BID PRN TP Yeast infection Last administered on 08/23/18at 08:11; Start 08/19/18 at 15:00 Pantoprazole Sodium (Protonix) 40 mg DAILYAC PO Last administered on 08/23/18at 06:09; Start 08/20/18 at 07:30 Insulin Human Lispro (HumaLOG) 10 units TIDWMEALS SQ Last administered on at 08:25; Start 08/19/18 at 17:00; Stop 08/21/18 at 09:09; Status DC Insulin Glargine (Lantus) 18 units QHS SQ Last administered on 08/20/18at 20:55 ; Start 08/19/18 at 21:00; Stop 08/21/18 at 14:06; Status DC Non-Formulary Medication (Ipratropium/ Albuterol Sulfate (Combivent Respimat Inhal)) 2 inh QID IH ; Start 08/19/18 at 17:00; Stop 08/19/18 at 17:00; Status DC Montelukast Sodium (Singulair) 10 mg QHS PO Last administered on 08/22/18at 20: 26; Start 08/19/18 at 21:00 Albuterol/ Ipratropium (Duoneb) 3 ml RTQID NEB Last administered on 08/23/18at 07:12; Start 08/19/18 at 16:00 Alprazolam (Xanax) 0.25 mg PRN Q8HRS PRN PO ANXIETY / AGITATION Last administered on 08/22/18 09:34; Start 08/19/18 at 21:00 Tramadol HCl (Ultram) 50 mg PRN Q6HRS PRN PO PAIN Last administered on 09:34; Start 08/19/18 at 21:00; Stop 08/22/18 at 11:43; Status DC Guaifenesin (Robitussin) 200 mg PRN Q4HRS PRN PO COUGH Last administered on 22:29; Start 08/19/18 at 21:00 Lorazepam (Ativan) 1 mg PRN Q6HRS PRN IV ANXIETY / AGITATION Last administered on 08/21/18 21:16; Start 08/20/18 at 01:45 Insulin Human Lispro (HumaLOG) 0-9 UNITS TIDWMEALS SQ Last administered on 08/21 08:26; Start 08/21/18 at 08:00 Insulin Human Lispro (HumaLOG) 6 units TIDWMEALS SQ Last administered on 12:14; Start 08/21/18 at 12:00; Stop 08/21/18 at 14:06; Status DC Insulin Glargine (Lantus) 15 units QHS SQ Last administered on 08/22/18 20:36 ; Start 08/21/18 at 21:00 Insulin Human Lispro (HumaLOG) 5 units TIDWMEALS SQ Last administered on 10:03; Start 08/21/18 at 17:00 Albuterol Sulfate (Ventolin Neb Soln) 2.5 mg PRN Q4HRS PRN NEB SHORTNESS OF BREATH; Start 08/21/18 at 14:15 Lidocaine (Lidoderm) 1 patch QHS TD Last administered on 08/22/18 20:39; Start 08/21/18 at 20:30 Miscellaneous (Lidoderm Patch Removal) 1 ea DAILY MC Last administered on 09:00; Start 08/22/18 at 09:00 Acetaminophen/ Hydrocodone Bitart (Lortab 7.5/325) 1 tab PRN Q6HRS PRN PO MODERATE PAIN Last administered on 08/23/18 04:25; Start 08/22/18 at 14:45 Oxybutynin Chloride (Ditropan) 5 mg [id number] PO Last administered on 08/23/18at 08 :10; Start 08/22/18 at 15:00 Active Scripts Active Levemir Flextouch (Insulin Detemir) 100 Unit/1 Ml Insuln.pen 18 Units SQ QHS Novolog Flexpen (Insulin Aspart) 100 Unit/1 Ml Insuln.pen 10 Units SQ TIDAC Topamax (Topiramate) 25 Mg Tablet 25 Mg PO HS Combivent Respimat Inhal (Ipratropium/Albuterol Sulfate) 4 Gm Aer.w.adap 2 Inh IH QID Lasix (Furosemide) 40 Mg Tablet 1 Tab PO DAILY Aldactone (Spironolactone) 25 Mg Tablet 25 Mg PO DAILY Klor-Con M20 (Potassium Chloride) 20 Meq Tablet.er 40 Meq PO DAILY Nystop (Nystatin) 1 Omid Omid 1 Omid TP BID PRN [Aspirin] 325 MG Tablet.dr 325 Mg PO DAILYWBKFT Reported Wellbutrin Sr (Bupropion Hcl) 150 Mg Tablet.er 1 Tab PO BID Aspirin 81 Mg Tab.chew 1 Tab PO DAILY Montelukast Sodium Tablet (Montelukast Sodium) 10 Mg Tablet 10 Mg PO HS Tizanidine Hcl 4 Mg Tablet 1 Tab PO BID Carvedilol 6.25 Mg Tablet 6.25 Mg PO BIDWMEALS Pantoprazole Sodium 40 Mg Tablet.dr 40 Mg PO DAILY Alprazolam 1 Mg Tab.rapdis 1 Mg PO Q4HRS PRN Vitals/I & O Vital Sign - Last 24 Hours 08/22/18 08/22/18 08/22/18 08/22/18 10:34 11:09 11:46 12:00 Temp 97.6 97.6 Pulse 72 Resp 18 B/P (MAP) 147/72 (97) Pulse Ox 98 98 O2 Delivery Nasal Cannula Nasal Cannula Nasal Cannula O2 Flow Rate 2.0 2.0 2.0 2.0 08/22/18 08/22/18 08/22/18 08/22/18 15:43 15:57 15:57 16:00 Temp 97.6 97.6 Pulse 72 72 Resp 18 B/P (MAP) 145/74 (97) 145/74 Pulse Ox 98 98 O2 Delivery Nasal Cannula Nasal Cannula O2 Flow Rate 2.0 2.0 2.0 08/22/18 08/22/18 08/22/18 08/22/18 16:28 19:00 19:05 20:08 Temp 98.2 98.2 Pulse 79 Resp 18 B/P (MAP) 133/48 (76) Pulse Ox 93 97 O2 Delivery Nasal Cannula Nasal Cannula Nasal Cannula Nasal Cannula O2 Flow Rate 2.0 2.0 2.0 2.0 08/22/18 08/22/18 08/23/18 08/23/18 22:32 22:35 03:27 04:25 Temp 98.7 97.8 98.7 97.8 Pulse 77 69 Resp 16 16 16 18 B/P (MAP) 123/49 (73) 114/48 (70) Pulse Ox 95 95 97 95 O2 Delivery Nasal Cannula Nasal Cannula Nasal Cannula Nasal Cannula O2 Flow Rate 2.0 2.0 08/23/18 08/23/18 08/23/18 05:24 07:12 08:11 Pulse 69 Resp 16 B/P (MAP) 148/80 Pulse Ox 95 96 O2 Delivery Nasal Cannula Nasal Cannula O2 Flow Rate 2.0 2.0 Intake and Output 08/22/18 08/22/18 08/23/18 15:00 23:00 07:00 Intake Total 350 ml 380 ml 240 ml Output Total 1 ml Balance 350 ml 379 ml 240 ml KIERA MOREIRA MD Aug 23, 2018 10:11
--- NOTE | 2018-08-23 10:59 | PDOC ---
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 on NC on duoneb, add albuterol prn decrease insulin to lantus 15u qhs, aspart 5u tid, ssi cough meds dvt ppx PTOT abdominal binder when up consulted dr johnson History of Present Illness History of Present Illness 58 yo F w/ PMHx HTN, DM, chronic benzo dependence, COPD on 3L NCO2 at home was brought here by EMS for evaluation of confusion at home per her . He checked her blood glucose and the meter read high (>500), gave her 30 units of lispro insulin. In ED she was difficult to arouse, ABG 7.24/80/130, started on BIPAP. Hb 11, no leukocytosis. Patient had history of COPD, on 3 L of oxygen at home. Patient and her stated that she ran out of her oxygen, not sure how long. Improved with BIPAP yesterday and overnight, still drowsy this morning. She is asking to eat and go home, advised we need to ensure she has home O2 as that was the reason she arrived. Denies cough, no CP, no pain complaints. Mildly anxious. refuse BIpap wants go home Vitals Vitals Vital Signs Date Time Temp Pulse Resp B/P (MAP) Pulse Ox O2 Delivery O2 Flow Rate FiO2 08/23/18 08:11 69 148/80 08/23/18 08:00 2.0 08/23/18 08:00 Nasal Cannula 08/23/18 07:12 96 08/23/18 07:00 97.8 16 97.8 Physical Exam General: Alert, Oriented X3, Cooperative, mild distress, Other (, easily aroused) Heart: Regular rate, Normal S1 Lungs: Other (POOR AIRFLOW, bl moderate decreased bs, no wheezing or rales) Abdomen: Normal bowel sounds, Soft, No tenderness, No hepatosplenomegaly, No masses Extremities: No clubbing, No cyanosis, Normal pulses, No tenderness/swelling, Other (Scant edema, covered in leaves and feces) Skin: No rashes, No breakdown, No significant lesion Labs LABS Laboratory Tests Test 08/22/18 12:18 08/22/18 17:35 08/22/18 20:28 08/23/18 05:30 Glucose (Fingerstick) 126 mg/dL (70-99) 117 mg/dL (70-99) 154 mg/dL (70-99) White Blood Count 4.8 x10^3/uL (4.0-11.0) Red Blood Count 3.61 x10^6/uL (3.50-5.40) Hemoglobin 9.8 g/dL (12.0-15.5) Hematocrit 30.4 % (36.0-47.0) Mean Corpuscular Volume 84 fL (79-100) Mean Corpuscular Hemoglobin 27 pg (25-35) Mean Corpuscular Hemoglobin Concent 32 g/dL (31-37) Red Cell Distribution Width 15.1 % (11.5-14.5) Platelet Count 103 x10^3/uL (140-400) Neutrophils (%) (Auto) 62 % (31-73) Lymphocytes (%) (Auto) 26 % (24-48) Monocytes (%) (Auto) 8 % (0-9) Eosinophils (%) (Auto) 3 % (0-3) Basophils (%) (Auto) 1 % (0-3) Neutrophils # (Auto) 3.0 x10^3uL (1.8-7.7) Lymphocytes # (Auto) 1.3 x10^3/uL (1.0-4.8) Monocytes # (Auto) 0.4 x10^3/uL (0.0-1.1) Eosinophils # (Auto) 0.2 x10^3/uL (0.0-0.7) Basophils # (Auto) 0.0 x10^3/uL (0.0-0.2) Sodium Level 141 mmol/L (136-145) Potassium Level 3.8 mmol/L (3.5-5.1) Chloride Level 104 mmol/L (98-107) Carbon Dioxide Level 30 mmol/L (21-32) Anion Gap 7 (6-14) Blood Urea Nitrogen 20 mg/dL (7-20) Creatinine 1.7 mg/dL (0.6-1.0) Estimated GFR (Cockcroft-Gault) 30.7 BUN/Creatinine Ratio 12 (6-20) Glucose Level 129 mg/dL (70-99) Calcium Level 8.4 mg/dL (8.5-10.1) Total Bilirubin 0.6 mg/dL (0.2-1.0) Aspartate Amino Transf (AST/SGOT) 15 U/L (15-37) Alanine Aminotransferase (ALT/SGPT) 13 U/L (14-59) Alkaline Phosphatase 71 U/L (46-116) Total Protein 6.7 g/dL (6.4-8.2) Albumin 2.9 g/dL (3.4-5.0) Albumin/Globulin Ratio 0.8 (1.0-1.7) Test 08/23/18 09:23 Glucose (Fingerstick) 166 mg/dL (70-99) Assessment and Plan Assessmemt and Plan Problems Medical Problems: (1) Hypercapnic respiratory failure Status: Acute (2) Hyperglycemia Status: Acute Comment Review of Relevant I have reviewed the following items kylee (where applicable) has been applied. Labs Laboratory Tests Test 08/21/18 11:50 08/21/18 17:21 08/21/18 20:03 08/22/18 05:25 Glucose (Fingerstick) 102 mg/dL (70-99) 108 mg/dL (70-99) 137 mg/dL (70-99) White Blood Count 4.2 x10^3/uL (4.0-11.0) Red Blood Count 3.51 x10^6/uL (3.50-5.40) Hemoglobin 9.8 g/dL (12.0-15.5) Hematocrit 29.5 % (36.0-47.0) Mean Corpuscular Volume 84 fL (79-100) Mean Corpuscular Hemoglobin 28 pg (25-35) Mean Corpuscular Hemoglobin Concent 33 g/dL (31-37) Red Cell Distribution Width 14.6 % (11.5-14.5) Platelet Count 93 x10^3/uL (140-400) Neutrophils (%) (Auto) 63 % (31-73) Lymphocytes (%) (Auto) 26 % (24-48) Monocytes (%) (Auto) 7 % (0-9) Eosinophils (%) (Auto) 3 % (0-3) Basophils (%) (Auto) 1 % (0-3) Neutrophils # (Auto) 2.7 x10^3uL (1.8-7.7) Lymphocytes # (Auto) 1.1 x10^3/uL (1.0-4.8) Monocytes # (Auto) 0.3 x10^3/uL (0.0-1.1) Eosinophils # (Auto) 0.1 x10^3/uL (0.0-0.7) Basophils # (Auto) 0.0 x10^3/uL (0.0-0.2) Sodium Level 141 mmol/L (136-145) Potassium Level 3.9 mmol/L (3.5-5.1) Chloride Level 104 mmol/L (98-107) Carbon Dioxide Level 30 mmol/L (21-32) Anion Gap 7 (6-14) Blood Urea Nitrogen 19 mg/dL (7-20) Creatinine 1.6 mg/dL (0.6-1.0) Estimated GFR (Cockcroft-Gault) 32.9 Glucose Level 126 mg/dL (70-99) Calcium Level 8.6 mg/dL (8.5-10.1) Test 08/22/18 09:28 08/22/18 12:18 08/22/18 17:35 08/22/18 20:28 Glucose (Fingerstick) 168 mg/dL (70-99) 126 mg/dL (70-99) 117 mg/dL (70-99) 154 mg/dL (70-99) Test 08/23/18 05:30 08/23/18 09:23 White Blood Count 4.8 x10^3/uL (4.0-11.0) Red Blood Count 3.61 x10^6/uL (3.50-5.40) Hemoglobin 9.8 g/dL (12.0-15.5) Hematocrit 30.4 % (36.0-47.0) Mean Corpuscular Volume 84 fL (79-100) Mean Corpuscular Hemoglobin 27 pg (25-35) Mean Corpuscular Hemoglobin Concent 32 g/dL (31-37) Red Cell Distribution Width 15.1 % (11.5-14.5) Platelet Count 103 x10^3/uL (140-400) Neutrophils (%) (Auto) 62 % (31-73) Lymphocytes (%) (Auto) 26 % (24-48) Monocytes (%) (Auto) 8 % (0-9) Eosinophils (%) (Auto) 3 % (0-3) Basophils (%) (Auto) 1 % (0-3) Neutrophils # (Auto) 3.0 x10^3uL (1.8-7.7) Lymphocytes # (Auto) 1.3 x10^3/uL (1.0-4.8) Monocytes # (Auto) 0.4 x10^3/uL (0.0-1.1) Eosinophils # (Auto) 0.2 x10^3/uL (0.0-0.7) Basophils # (Auto) 0.0 x10^3/uL (0.0-0.2) Sodium Level 141 mmol/L (136-145) Potassium Level 3.8 mmol/L (3.5-5.1) Chloride Level 104 mmol/L (98-107) Carbon Dioxide Level 30 mmol/L (21-32) Anion Gap 7 (6-14) Blood Urea Nitrogen 20 mg/dL (7-20) Creatinine 1.7 mg/dL (0.6-1.0) Estimated GFR (Cockcroft-Gault) 30.7 BUN/Creatinine Ratio 12 (6-20) Glucose Level 129 mg/dL (70-99) Calcium Level 8.4 mg/dL (8.5-10.1) Total Bilirubin 0.6 mg/dL (0.2-1.0) Aspartate Amino Transf (AST/SGOT) 15 U/L (15-37) Alanine Aminotransferase (ALT/SGPT) 13 U/L (14-59) Alkaline Phosphatase 71 U/L (46-116) Total Protein 6.7 g/dL (6.4-8.2) Albumin 2.9 g/dL (3.4-5.0) Albumin/Globulin Ratio 0.8 (1.0-1.7) Glucose (Fingerstick) 166 mg/dL (70-99) Laboratory Tests Test 08/22/18 12:18 08/22/18 17:35 08/22/18 20:28 08/23/18 05:30 Glucose (Fingerstick) 126 mg/dL (70-99) 117 mg/dL (70-99) 154 mg/dL (70-99) White Blood Count 4.8 x10^3/uL (4.0-11.0) Red Blood Count 3.61 x10^6/uL (3.50-5.40) Hemoglobin 9.8 g/dL (12.0-15.5) Hematocrit 30.4 % (36.0-47.0) Mean Corpuscular Volume 84 fL (79-100) Mean Corpuscular Hemoglobin 27 pg (25-35) Mean Corpuscular Hemoglobin Concent 32 g/dL (31-37) Red Cell Distribution Width 15.1 % (11.5-14.5) Platelet Count 103 x10^3/uL (140-400) Neutrophils (%) (Auto) 62 % (31-73) Lymphocytes (%) (Auto) 26 % (24-48) Monocytes (%) (Auto) 8 % (0-9) Eosinophils (%) (Auto) 3 % (0-3) Basophils (%) (Auto) 1 % (0-3) Neutrophils # (Auto) 3.0 x10^3uL (1.8-7.7) Lymphocytes # (Auto) 1.3 x10^3/uL (1.0-4.8) Monocytes # (Auto) 0.4 x10^3/uL (0.0-1.1) Eosinophils # (Auto) 0.2 x10^3/uL (0.0-0.7) Basophils # (Auto) 0.0 x10^3/uL (0.0-0.2) Sodium Level 141 mmol/L (136-145) Potassium Level 3.8 mmol/L (3.5-5.1) Chloride Level 104 mmol/L (98-107) Carbon Dioxide Level 30 mmol/L (21-32) Anion Gap 7 (6-14) Blood Urea Nitrogen 20 mg/dL (7-20) Creatinine 1.7 mg/dL (0.6-1.0) Estimated GFR (Cockcroft-Gault) 30.7 BUN/Creatinine Ratio 12 (6-20) Glucose Level 129 mg/dL (70-99) Calcium Level 8.4 mg/dL (8.5-10.1) Total Bilirubin 0.6 mg/dL (0.2-1.0) Aspartate Amino Transf (AST/SGOT) 15 U/L (15-37) Alanine Aminotransferase (ALT/SGPT) 13 U/L (14-59) Alkaline Phosphatase 71 U/L (46-116) Total Protein 6.7 g/dL (6.4-8.2) Albumin 2.9 g/dL (3.4-5.0) Albumin/Globulin Ratio 0.8 (1.0-1.7) Test 08/23/18 09:23 Glucose (Fingerstick) 166 mg/dL (70-99) Medications Current Medications Sodium Chloride 1,000 ml @ 1,000 mls/hr Q1H IV Last administered on 08/19/18 12:04; Start 08/19/18 at 11:37; Stop 08/19/18 at 12:36; Status DC Albuterol/ Ipratropium (Duoneb) 3 ml 1X ONCE NEB Last administered on at 12:36; Start 08/19/18 at 12:15; Stop 08/19/18 at 12:24; Status DC Ondansetron HCl (Zofran) 4 mg PRN Q8HRS PRN IV NAUSEA/VOMITING; Start 08/19/18 at 13:15; Stop 08/20/18 at 08:06; Status DC Ondansetron HCl (Zofran) 4 mg PRN Q6HRS PRN IV NAUSEA/VOMITING Last administered on 08/23/18at 08:13; Start 08/19/18 at 15:00 Heparin Sodium (Porcine) (Heparin Sodium) 5,000 unit Q12HR SQ Last administered on 08/23/18at 08:21; Start 08/19/18 at 21:00 Sodium Chloride (Normal Saline Flush) 3 ml QSHIFT PRN IV AFTER MEDS AND BLOOD DRAWS; Start 08/19/18 at 15:00 Senna/Docusate Sodium (Senna Plus) 1 tab BID PO Last administered on 08/23/18at 08:10; Start 08/19/18 at 21:00 Lactulose (Lactulose) 20 gm PRN Q12HR PRN PO CONSTIPATION; Start 08/19/18 at 15 :00 Insulin Human Lispro (HumaLOG) 0-7 UNITS TIDWMEALS SQ Last administered on 08/20at 08:39; Start 08/19/18 at 17:00; Stop 08/20/18 at 18:05; Status DC Dextrose (Dextrose 50%-Water Syringe) 12.5 gm PRN Q15MIN PRN IV SEE COMMENTS; Start 08/19/18 at 15:00 Aspirin (Children'S Aspirin) 81 mg DAILY PO Last administered on 08/23/18 08: 10; Start 08/20/18 at 09:00 Bupropion HCl (Wellbutrin Sr) 150 mg BID PO Last administered on 08/23/18at 08: 10; Start 08/19/18 at 21:00 Carvedilol (Coreg) 6.25 mg BIDWMEALS PO Last administered on 08/23/18at 08:11; Start 08/19/18 at 17:00 Nystatin (Nystop) 1 omid PRN BID PRN TP Yeast infection Last administered on 08/23/18at 08:11; Start 08/19/18 at 15:00 Pantoprazole Sodium (Protonix) 40 mg DAILYAC PO Last administered on 08/23/18at 06:09; Start 08/20/18 at 07:30 Insulin Human Lispro (HumaLOG) 10 units TIDWMEALS SQ Last administered on at 08:25; Start 08/19/18 at 17:00; Stop 08/21/18 at 09:09; Status DC Insulin Glargine (Lantus) 18 units QHS SQ Last administered on 08/20/18at 20:55 ; Start 08/19/18 at 21:00; Stop 08/21/18 at 14:06; Status DC Non-Formulary Medication (Ipratropium/ Albuterol Sulfate (Combivent Respimat Inhal)) 2 inh QID IH ; Start 08/19/18 at 17:00; Stop 08/19/18 at 17:00; Status DC Montelukast Sodium (Singulair) 10 mg QHS PO Last administered on 08/22/18at 20: 26; Start 08/19/18 at 21:00 Albuterol/ Ipratropium (Duoneb) 3 ml RTQID NEB Last administered on 08/23/18at 07:12; Start 08/19/18 at 16:00 Alprazolam (Xanax) 0.25 mg PRN Q8HRS PRN PO ANXIETY / AGITATION Last administered on 08/22/18 09:34; Start 08/19/18 at 21:00 Tramadol HCl (Ultram) 50 mg PRN Q6HRS PRN PO PAIN Last administered on 09:34; Start 08/19/18 at 21:00; Stop 08/22/18 at 11:43; Status DC Guaifenesin (Robitussin) 200 mg PRN Q4HRS PRN PO COUGH Last administered on 22:29; Start 08/19/18 at 21:00 Lorazepam (Ativan) 1 mg PRN Q6HRS PRN IV ANXIETY / AGITATION Last administered on 08/21/18 21:16; Start 08/20/18 at 01:45 Insulin Human Lispro (HumaLOG) 0-9 UNITS TIDWMEALS SQ Last administered on 08/21 08:26; Start 08/21/18 at 08:00 Insulin Human Lispro (HumaLOG) 6 units TIDWMEALS SQ Last administered on 12:14; Start 08/21/18 at 12:00; Stop 08/21/18 at 14:06; Status DC Insulin Glargine (Lantus) 15 units QHS SQ Last administered on 08/22/18 20:36 ; Start 08/21/18 at 21:00 Insulin Human Lispro (HumaLOG) 5 units TIDWMEALS SQ Last administered on at 10:03; Start 08/21/18 at 17:00 Albuterol Sulfate (Ventolin Neb Soln) 2.5 mg PRN Q4HRS PRN NEB SHORTNESS OF BREATH; Start 08/21/18 at 14:15 Lidocaine (Lidoderm) 1 patch QHS TD Last administered on 08/22/18 20:39; Start 08/21/18 at 20:30 Miscellaneous (Lidoderm Patch Removal) 1 ea DAILY MC Last administered on 09:00; Start 08/22/18 at 09:00 Acetaminophen/ Hydrocodone Bitart (Lortab 7.5/325) 1 tab PRN Q6HRS PRN PO MODERATE PAIN Last administered on 08/23/18 04:25; Start 08/22/18 at 14:45 Oxybutynin Chloride (Ditropan) 5 mg [id number] PO Last administered on 08/23/18at 08 :10; Start 08/22/18 at 15:00 Active Scripts Active Levemir Flextouch (Insulin Detemir) 100 Unit/1 Ml Insuln.pen 18 Units SQ QHS Novolog Flexpen (Insulin Aspart) 100 Unit/1 Ml Insuln.pen 10 Units SQ TIDAC Topamax (Topiramate) 25 Mg Tablet 25 Mg PO HS Combivent Respimat Inhal (Ipratropium/Albuterol Sulfate) 4 Gm Aer.w.adap 2 Inh IH QID Lasix (Furosemide) 40 Mg Tablet 1 Tab PO DAILY Aldactone (Spironolactone) 25 Mg Tablet 25 Mg PO DAILY Klor-Con M20 (Potassium Chloride) 20 Meq Tablet.er 40 Meq PO DAILY Nystop (Nystatin) 1 Omid Omid 1 Omid TP BID PRN [Aspirin] 325 MG Tablet. 325 Mg PO DAILYWBKFT Reported Wellbutrin Sr (Bupropion Hcl) 150 Mg Tablet.er 1 Tab PO BID Aspirin 81 Mg Tab.chew 1 Tab PO DAILY Montelukast Sodium Tablet (Montelukast Sodium) 10 Mg Tablet 10 Mg PO HS Tizanidine Hcl 4 Mg Tablet 1 Tab PO BID Carvedilol 6.25 Mg Tablet 6.25 Mg PO BIDWMEALS Pantoprazole Sodium 40 Mg Tablet. 40 Mg PO DAILY Alprazolam 1 Mg Tab.rapdis 1 Mg PO Q4HRS PRN Vitals/I & O Vital Sign - Last 24 Hours 08/22/18 08/22/18 08/22/18 08/22/18 11:09 11:46 12:00 15:43 Temp 97.6 97.6 97.6 97.6 Pulse 72 72 Resp 18 B/P (MAP) 147/72 (97) 145/74 (97) Pulse Ox 98 98 O2 Delivery Nasal Cannula Nasal Cannula Nasal Cannula O2 Flow Rate 2.0 2.0 2.0 2.0 08/22/18 08/22/18 08/22/18 08/22/18 15:57 15:57 16:00 16:28 Pulse 72 B/P (MAP) 145/74 Pulse Ox 98 O2 Delivery Nasal Cannula Nasal Cannula O2 Flow Rate 2.0 2.0 2.0 08/22/18 08/22/18 08/22/18 08/22/18 19:00 19:05 20:08 22:32 Temp 98.2 98.7 98.2 98.7 Pulse 79 77 Resp 18 16 B/P (MAP) 133/48 (76) 123/49 (73) Pulse Ox 93 97 95 O2 Delivery Nasal Cannula Nasal Cannula Nasal Cannula Nasal Cannula O2 Flow Rate 2.0 2.0 2.0 2.0 08/22/18 08/23/18 08/23/18 08/23/18 22:35 03:27 04:25 05:24 Temp 97.8 97.8 Pulse 69 Resp 16 16 18 16 B/P (MAP) 114/48 (70) Pulse Ox 95 97 95 95 O2 Delivery Nasal Cannula Nasal Cannula Nasal Cannula Nasal Cannula O2 Flow Rate 2.0 2.0 08/23/18 08/23/18 08/23/18 08/23/18 07:00 07:12 08:00 08:00 Temp 97.8 97.8 Pulse 69 Resp 16 B/P (MAP) 148/68 (94) Pulse Ox 95 96 O2 Delivery Nasal Cannula Nasal Cannula Nasal Cannula O2 Flow Rate 2.0 2.0 2.0 2.0 08/23/18 08:11 Pulse 69 B/P (MAP) 148/80 Intake and Output 08/22/18 08/22/18 08/23/18 15:00 23:00 07:00 Intake Total 350 ml 380 ml 240 ml Output Total 1 ml Balance 350 ml 379 ml 240 ml ACE ZELAYA MD Aug 23, 2018 10:59
--- NOTE | 2018-08-23 11:41 | PDOC3 ---
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 on NC on duoneb, add albuterol prn decrease insulin to lantus 15u qhs, aspart 5u tid, ssi cough meds dvt ppx PTOT abdominal binder when up consulted dr johnson History of Present Illness History of Present Illness 58 yo F w/ PMHx HTN, DM, chronic benzo dependence, COPD on 3L NCO2 at home was brought here by EMS for evaluation of confusion at home per her . He checked her blood glucose and the meter read high (>500), gave her 30 units of lispro insulin. In ED she was difficult to arouse, ABG 7.24/80/130, started on BIPAP. Hb 11, no leukocytosis. Patient had history of COPD, on 3 L of oxygen at home. Patient and her stated that she ran out of her oxygen, not sure how long. Improved with BIPAP yesterday and overnight, still drowsy this morning. She is asking to eat and go home, advised we need to ensure she has home O2 as that was the reason she arrived. Denies cough, no CP, no pain complaints. Mildly anxious. refuse BIpap wants go home FINAL DIAGNOSIS Problems Medical Problems: (1) Hypercapnic respiratory failure Status: Acute (2) Hyperglycemia Status: Acute Brief Hospital Course Ms. Tomlinson is a 58 old [sex] who presented with [ ] CONDITION AT DISCHARGE: Comment (guarded prognosis with noncompliance) Discharge Medications Current Medications Sodium Chloride 1,000 ml @ 1,000 mls/hr Q1H IV Last administered on 08/19/18at 12:04; Start 08/19/18 at 11:37; Stop 08/19/18 at 12:36; Status DC Albuterol/ Ipratropium (Duoneb) 3 ml 1X ONCE NEB Last administered on at 12:36; Start 08/19/18 at 12:15; Stop 08/19/18 at 12:24; Status DC Ondansetron HCl (Zofran) 4 mg PRN Q8HRS PRN IV NAUSEA/VOMITING; Start 08/19/18 at 13:15; Stop 08/20/18 at 08:06; Status DC Ondansetron HCl (Zofran) 4 mg PRN Q6HRS PRN IV NAUSEA/VOMITING Last administered on 08/23/18 08:13; Start 08/19/18 at 15:00 Heparin Sodium (Porcine) (Heparin Sodium) 5,000 unit Q12HR SQ Last administered on 08/23/18 08:21; Start 08/19/18 at 21:00 Sodium Chloride (Normal Saline Flush) 3 ml QSHIFT PRN IV AFTER MEDS AND BLOOD DRAWS; Start 08/19/18 at 15:00 Senna/Docusate Sodium (Senna Plus) 1 tab BID PO Last administered on 08/23/18at 08:10; Start 08/19/18 at 21:00 Lactulose (Lactulose) 20 gm PRN Q12HR PRN PO CONSTIPATION; Start 08/19/18 at 15 :00 Insulin Human Lispro (HumaLOG) 0-7 UNITS TIDWMEALS SQ Last administered on 08/20at 08:39; Start 08/19/18 at 17:00; Stop 08/20/18 at 18:05; Status DC Dextrose (Dextrose 50%-Water Syringe) 12.5 gm PRN Q15MIN PRN IV SEE COMMENTS; Start 08/19/18 at 15:00 Aspirin (Children'S Aspirin) 81 mg DAILY PO Last administered on 08/23/18 08: 10; Start 08/20/18 at 09:00 Bupropion HCl (Wellbutrin Sr) 150 mg BID PO Last administered on 08/23/18 08: 10; Start 08/19/18 at 21:00 Carvedilol (Coreg) 6.25 mg BIDWMEALS PO Last administered on 08/23/18 08:11; Start 08/19/18 at 17:00 Nystatin (Nystop) 1 oimd PRN BID PRN TP Yeast infection Last administered on 11/ 7/18at 08:11; Start 08/19/18 at 15:00 Pantoprazole Sodium (Protonix) 40 mg DAILYAC PO Last administered on 08/23/18 06:09; Start 08/20/18 at 07:30 Insulin Human Lispro (HumaLOG) 10 units TIDWMEALS SQ Last administered on 08:25; Start 08/19/18 at 17:00; Stop 08/21/18 at 09:09; Status DC Insulin Glargine (Lantus) 18 units QHS SQ Last administered on 08/20/18 20:55 ; Start 08/19/18 at 21:00; Stop 08/21/18 at 14:06; Status DC Non-Formulary Medication (Ipratropium/ Albuterol Sulfate (Combivent Respimat Inhal)) 2 inh QID IH ; Start 08/19/18 at 17:00; Stop 08/19/18 at 17:00; Status DC Montelukast Sodium (Singulair) 10 mg QHS PO Last administered on 08/22/18 20: 26; Start 08/19/18 at 21:00 Albuterol/ Ipratropium (Duoneb) 3 ml RTQID NEB Last administered on 08/23/18 07:12; Start 08/19/18 at 16:00 Alprazolam (Xanax) 0.25 mg PRN Q8HRS PRN PO ANXIETY / AGITATION Last administered on 08/22/18 09:34; Start 08/19/18 at 21:00 Tramadol HCl (Ultram) 50 mg PRN Q6HRS PRN PO PAIN Last administered on 09:34; Start 08/19/18 at 21:00; Stop 08/22/18 at 11:43; Status DC Guaifenesin (Robitussin) 200 mg PRN Q4HRS PRN PO COUGH Last administered on 22:29; Start 08/19/18 at 21:00 Lorazepam (Ativan) 1 mg PRN Q6HRS PRN IV ANXIETY / AGITATION Last administered on 08/21/18 21:16; Start 08/20/18 at 01:45 Insulin Human Lispro (HumaLOG) 0-9 UNITS TIDWMEALS SQ Last administered on 08/21 08:26; Start 08/21/18 at 08:00 Insulin Human Lispro (HumaLOG) 6 units TIDWMEALS SQ Last administered on 12:14; Start 08/21/18 at 12:00; Stop 08/21/18 at 14:06; Status DC Insulin Glargine (Lantus) 15 units QHS SQ Last administered on 08/22/18 20:36 ; Start 08/21/18 at 21:00 Insulin Human Lispro (HumaLOG) 5 units TIDWMEALS SQ Last administered on 10:03; Start 08/21/18 at 17:00 Albuterol Sulfate (Ventolin Neb Soln) 2.5 mg PRN Q4HRS PRN NEB SHORTNESS OF BREATH; Start 08/21/18 at 14:15 Lidocaine (Lidoderm) 1 patch QHS TD Last administered on 08/22/18at 20:39; Start 08/21/18 at 20:30 Miscellaneous (Lidoderm Patch Removal) 1 ea DAILY MC Last administered on at 09:00; Start 08/22/18 at 09:00 Acetaminophen/ Hydrocodone Bitart (Lortab 7.5/325) 1 tab PRN Q6HRS PRN PO MODERATE PAIN Last administered on 08/23/18 04:25; Start 08/22/18 at 14:45 Oxybutynin Chloride (Ditropan) 5 mg [id number] PO Last administered on 08/23/18 08 :10; Start 08/22/18 at 15:00 Active Scripts Active Levemir Flextouch (Insulin Detemir) 100 Unit/1 Ml Insuln.pen 18 Units SQ QHS Novolog Flexpen (Insulin Aspart) 100 Unit/1 Ml Insuln.pen 10 Units SQ TIDAC Topamax (Topiramate) 25 Mg Tablet 25 Mg PO HS Combivent Respimat Inhal (Ipratropium/Albuterol Sulfate) 4 Gm Aer.w.adap 2 Inh IH QID Lasix (Furosemide) 40 Mg Tablet 1 Tab PO DAILY Aldactone (Spironolactone) 25 Mg Tablet 25 Mg PO DAILY Klor-Con M20 (Potassium Chloride) 20 Meq Tablet.er 40 Meq PO DAILY Nystop (Nystatin) 1 Omid Omid 1 Omid TP BID PRN [Aspirin] 325 MG Tablet.dr 325 Mg PO DAILYWBKFT Reported Wellbutrin Sr (Bupropion Hcl) 150 Mg Tablet.er 1 Tab PO BID Aspirin 81 Mg Tab.chew 1 Tab PO DAILY Montelukast Sodium Tablet (Montelukast Sodium) 10 Mg Tablet 10 Mg PO HS Tizanidine Hcl 4 Mg Tablet 1 Tab PO BID Carvedilol 6.25 Mg Tablet 6.25 Mg PO BIDWMEALS Pantoprazole Sodium 40 Mg Tablet.dr 40 Mg PO DAILY Alprazolam 1 Mg Tab.rapdis 1 Mg PO Q4HRS PRN Vital Signs Vital Signs Date Time Temp Pulse Resp B/P (MAP) Pulse Ox O2 Delivery O2 Flow Rate FiO2 08/23/18 08:11 69 148/80 08/23/18 08:00 2.0 08/23/18 08:00 Nasal Cannula 08/23/18 07:12 96 08/23/18 07:00 97.8 16 97.8 Labs Laboratory Tests Test 08/21/18 11:50 08/21/18 17:21 08/21/18 20:03 08/22/18 05:25 Glucose (Fingerstick) 102 mg/dL (70-99) 108 mg/dL (70-99) 137 mg/dL (70-99) White Blood Count 4.2 x10^3/uL (4.0-11.0) Red Blood Count 3.51 x10^6/uL (3.50-5.40) Hemoglobin 9.8 g/dL (12.0-15.5) Hematocrit 29.5 % (36.0-47.0) Mean Corpuscular Volume 84 fL (79-100) Mean Corpuscular Hemoglobin 28 pg (25-35) Mean Corpuscular Hemoglobin Concent 33 g/dL (31-37) Red Cell Distribution Width 14.6 % (11.5-14.5) Platelet Count 93 x10^3/uL (140-400) Neutrophils (%) (Auto) 63 % (31-73) Lymphocytes (%) (Auto) 26 % (24-48) Monocytes (%) (Auto) 7 % (0-9) Eosinophils (%) (Auto) 3 % (0-3) Basophils (%) (Auto) 1 % (0-3) Neutrophils # (Auto) 2.7 x10^3uL (1.8-7.7) Lymphocytes # (Auto) 1.1 x10^3/uL (1.0-4.8) Monocytes # (Auto) 0.3 x10^3/uL (0.0-1.1) Eosinophils # (Auto) 0.1 x10^3/uL (0.0-0.7) Basophils # (Auto) 0.0 x10^3/uL (0.0-0.2) Sodium Level 141 mmol/L (136-145) Potassium Level 3.9 mmol/L (3.5-5.1) Chloride Level 104 mmol/L (98-107) Carbon Dioxide Level 30 mmol/L (21-32) Anion Gap 7 (6-14) Blood Urea Nitrogen 19 mg/dL (7-20) Creatinine 1.6 mg/dL (0.6-1.0) Estimated GFR (Cockcroft-Gault) 32.9 Glucose Level 126 mg/dL (70-99) Calcium Level 8.6 mg/dL (8.5-10.1) Test 08/22/18 09:28 08/22/18 12:18 08/22/18 17:35 08/22/18 20:28 Glucose (Fingerstick) 168 mg/dL (70-99) 126 mg/dL (70-99) 117 mg/dL (70-99) 154 mg/dL (70-99) Test 08/23/18 05:30 08/23/18 09:23 White Blood Count 4.8 x10^3/uL (4.0-11.0) Red Blood Count 3.61 x10^6/uL (3.50-5.40) Hemoglobin 9.8 g/dL (12.0-15.5) Hematocrit 30.4 % (36.0-47.0) Mean Corpuscular Volume 84 fL (79-100) Mean Corpuscular Hemoglobin 27 pg (25-35) Mean Corpuscular Hemoglobin Concent 32 g/dL (31-37) Red Cell Distribution Width 15.1 % (11.5-14.5) Platelet Count 103 x10^3/uL (140-400) Neutrophils (%) (Auto) 62 % (31-73) Lymphocytes (%) (Auto) 26 % (24-48) Monocytes (%) (Auto) 8 % (0-9) Eosinophils (%) (Auto) 3 % (0-3) Basophils (%) (Auto) 1 % (0-3) Neutrophils # (Auto) 3.0 x10^3uL (1.8-7.7) Lymphocytes # (Auto) 1.3 x10^3/uL (1.0-4.8) Monocytes # (Auto) 0.4 x10^3/uL (0.0-1.1) Eosinophils # (Auto) 0.2 x10^3/uL (0.0-0.7) Basophils # (Auto) 0.0 x10^3/uL (0.0-0.2) Sodium Level 141 mmol/L (136-145) Potassium Level 3.8 mmol/L (3.5-5.1) Chloride Level 104 mmol/L (98-107) Carbon Dioxide Level 30 mmol/L (21-32) Anion Gap 7 (6-14) Blood Urea Nitrogen 20 mg/dL (7-20) Creatinine 1.7 mg/dL (0.6-1.0) Estimated GFR (Cockcroft-Gault) 30.7 BUN/Creatinine Ratio 12 (6-20) Glucose Level 129 mg/dL (70-99) Calcium Level 8.4 mg/dL (8.5-10.1) Total Bilirubin 0.6 mg/dL (0.2-1.0) Aspartate Amino Transf (AST/SGOT) 15 U/L (15-37) Alanine Aminotransferase (ALT/SGPT) 13 U/L (14-59) Alkaline Phosphatase 71 U/L (46-116) Total Protein 6.7 g/dL (6.4-8.2) Albumin 2.9 g/dL (3.4-5.0) Albumin/Globulin Ratio 0.8 (1.0-1.7) Glucose (Fingerstick) 166 mg/dL (70-99) Laboratory Tests Test 08/22/18 12:18 08/22/18 17:35 08/22/18 20:28 08/23/18 05:30 Glucose (Fingerstick) 126 mg/dL (70-99) 117 mg/dL (70-99) 154 mg/dL (70-99) White Blood Count 4.8 x10^3/uL (4.0-11.0) Red Blood Count 3.61 x10^6/uL (3.50-5.40) Hemoglobin 9.8 g/dL (12.0-15.5) Hematocrit 30.4 % (36.0-47.0) Mean Corpuscular Volume 84 fL (79-100) Mean Corpuscular Hemoglobin 27 pg (25-35) Mean Corpuscular Hemoglobin Concent 32 g/dL (31-37) Red Cell Distribution Width 15.1 % (11.5-14.5) Platelet Count 103 x10^3/uL (140-400) Neutrophils (%) (Auto) 62 % (31-73) Lymphocytes (%) (Auto) 26 % (24-48) Monocytes (%) (Auto) 8 % (0-9) Eosinophils (%) (Auto) 3 % (0-3) Basophils (%) (Auto) 1 % (0-3) Neutrophils # (Auto) 3.0 x10^3uL (1.8-7.7) Lymphocytes # (Auto) 1.3 x10^3/uL (1.0-4.8) Monocytes # (Auto) 0.4 x10^3/uL (0.0-1.1) Eosinophils # (Auto) 0.2 x10^3/uL (0.0-0.7) Basophils # (Auto) 0.0 x10^3/uL (0.0-0.2) Sodium Level 141 mmol/L (136-145) Potassium Level 3.8 mmol/L (3.5-5.1) Chloride Level 104 mmol/L (98-107) Carbon Dioxide Level 30 mmol/L (21-32) Anion Gap 7 (6-14) Blood Urea Nitrogen 20 mg/dL (7-20) Creatinine 1.7 mg/dL (0.6-1.0) Estimated GFR (Cockcroft-Gault) 30.7 BUN/Creatinine Ratio 12 (6-20) Glucose Level 129 mg/dL (70-99) Calcium Level 8.4 mg/dL (8.5-10.1) Total Bilirubin 0.6 mg/dL (0.2-1.0) Aspartate Amino Transf (AST/SGOT) 15 U/L (15-37) Alanine Aminotransferase (ALT/SGPT) 13 U/L (14-59) Alkaline Phosphatase 71 U/L (46-116) Total Protein 6.7 g/dL (6.4-8.2) Albumin 2.9 g/dL (3.4-5.0) Albumin/Globulin Ratio 0.8 (1.0-1.7) Test 08/23/18 09:23 Glucose (Fingerstick) 166 mg/dL (70-99) Allergies Allergies Coded Allergies Type Severity Reaction Last Updated Verified Fish Containing Products Allergy Intermediate Itching 10/15/15 Yes Penicillins Allergy Intermediate 02/04/14 Yes Sulfa (Sulfonamide Antibiotics) Allergy Intermediate 02/04/14 Yes codeine Allergy Intermediate 02/15/16 Yes morphine Allergy Intermediate Hives 02/15/16 Yes Disposition/Orders: D/C to Home w/ HH Patient Instructions d/c planning 33 min ACE ZELAYA MD Aug 23, 2018 11:41
--- NOTE | 2018-08-23 11:43 | DISCH ---
DISCHARGE WITH HOME HEALTH DISCHARGE INFORMATION: Final Diagnosis: Problems Medical Problems: (1) Hypercapnic respiratory failure Status: Acute (2) Hyperglycemia Status: Acute Condition on Discharge: Guarded CODE STATUS: Code Status: Full HOME HEALTH: Face to Face: I certify this patient is under my care and that I, or a nurse practitioner or physician's bacteriology research assistant working with me, had a face to face encounter that meets the physician face to face encounter requirements with this patient on []. Medical Complications: COPD Physical Therapy For: Evalulation/Treatment Occupational Therapy For: Evaluation/Treatment Speech Language Pathology For: Evaluation/Treatment Home Health Aide For: Self-care SET UP MECHANIC For: Community Resources Pt Meets Homebound Status: Poor coordination w/ amb., Psychological condition POST DISCHARGE ORDERS: Activity Instructions for Disc: Activity as tolerated Weight Bearing Status after Di: No restrictions DIET AFTER DISCHARGE: Cardiac CHECKS AFTER DISCHARGE: Checks after discharge: Check blood press - daily, Check blood sugar, ac/hs TREATMENT/EQUIPMENT ORDERS: Adaptive Equipment Issued: None Discharge Respiratory Equipmen: Oxygen CERTIFICATION STATEMENT: Certification Statement: Certification Statement: Based on the above finding, I certify that this patient is confined to the home and needs intermittent senior care care, physical therapy and/or speech therapy, or continues to need occupational therapy.~ This patient is under my care, and I have initiated the establishment of the plan of care.~ This patient will be followed by myself or a community physician who will periodically review the plan of care. Home Meds Active Scripts Insulin Detemir (Levemir Flextouch) 100 Unit/1 Ml Insuln.pen, 18 UNITS SQ QHS, # 3 SYR 5 Refills Prov:JENNA WEINSTEIN MD 10/17/15 Insulin Aspart (NOVOLOG FLEXPEN) 100 Unit/1 Ml Insuln.pen, 10 UNITS SQ TIDAC, # 3 SYR 5 Refills Prov:JENNA WEINSTEIN MD 10/17/15 Topiramate (TOPAMAX) 25 Mg Tablet, 25 MG PO HS, #30 BOTTLE Prov:RAMILA HERNANDEZ MD 03/18/15 Ipratropium/Albuterol Sulfate (COMBIVENT RESPIMAT INHAL) 4 Gm Aer.w.adap, 2 INH IH QID, #2 INHALER 5 Refills Prov:JENNA WEINSTEIN MD 11/28/14 Furosemide (LASIX) 40 Mg Tablet, 1 TAB PO DAILY, #90 TAB 2 Refills Prov:JENNA WEINSTEIN MD 10/25/14 Spironolactone (ALDACTONE) 25 Mg Tablet, 25 MG PO DAILY, #30 TAB 2 Refills Prov:JENNA WEINSTEIN MD 10/25/14 Potassium Chloride (KLOR-CON M20) 20 Meq Tablet.er, 40 MEQ PO DAILY, #30 TAB 1 Refill Prov:JENNA WEINSTEIN MD 10/25/14 Nystatin (NYSTOP) 1 Omid Omid, 1 OMID TP BID PRN for Yeast infection, #1 PACKET 1 Refill Prov:JENNA WEINSTEIN MD 10/25/14 [Aspirin] 325 MG TABLET. No Conflict Check, 325 MG PO DAILYWBKFT, #30 TAB 3 Refills Prov:JENNA WEINSTEIN MD 10/25/14 Reported Medications Bupropion Hcl (WELLBUTRIN SR) 150 Mg Tablet.er, 1 TAB PO BID, #60 TAB 5 Refills 03/11/15 Aspirin (ASPIRIN) 81 Mg Tab.chew, 1 TAB PO DAILY, #30 TAB 3 Refills 03/11/15 Montelukast Sodium (MONTELUKAST SODIUM TABLET) 10 Mg Tablet, 10 MG PO HS for FOR ASTHMA, #30 TAB 0 Refills 03/11/15 Tizanidine Hcl (TIZANIDINE HCL) 4 Mg Tablet, 1 TAB PO BID, #60 TAB 03/11/15 Carvedilol (CARVEDILOL) 6.25 Mg Tablet, 6.25 MG PO BIDWMEALS, TAB 10/22/14 Pantoprazole Sodium (PANTOPRAZOLE SODIUM) 40 Mg Tablet.dr, 40 MG PO DAILY, TAB 10/22/14 Alprazolam (ALPRAZOLAM) 1 Mg Tab.rapdis, 1 MG PO Q4HRS PRN for ANXIETY / AGITATION 02/04/14 ACE ZELAYA MD Aug 23, 2018 11:42
[2018-08-23] MEDS ORDERED: SENN-22 PO (11:47)
[2018-08-23] MEDS ORDERED: LIDO700A39 TD (11:47)
[2018-08-23 11:58] VITALS: BP 148/80
== END 2018-08-23 14:17 | disposition home health service (06) | DRG 682 ==
LOC: ER 11:23 → 1 WEST ICU 13:02 → CVICU 08-22 07:06
PROVIDERS: ADMIT Internal Medicine; ATTEND Internal Medicine
PROC: 5A09357 Assistance with Respiratory Ventilation, Less than 24 Consecutive Hours, Continuous Positive Airway Pressure (ICD-10-PCS; principal; 2018-08-19)
PROC: 5A09357 Assistance with Respiratory Ventilation, Less than 24 Consecutive Hours, Continuous Positive Airway Pressure (ICD-10-PCS; 2018-08-20)
DX: N17.0 Acute kidney failure with tubular necrosis (principal); G92 Toxic encephalopathy; J96.22 Acute and chronic respiratory failure with hypercapnia; J96.21 Acute and chronic respiratory failure with hypoxia; J44.1 Chronic obstructive pulmonary disease with (acute) exacerbation; I13.0 Hypertensive heart and chronic kidney disease with heart failure and stage 1 through stage 4 chronic kidney disease, or unspecified chronic kidney disease; E87.2 Acidosis; F13.20 Sedative, hypnotic or anxiolytic dependence, uncomplicated; Z68.42 Body mass index [BMI] 45.0-49.9, adult; E11.65 Type 2 diabetes mellitus with hyperglycemia; E11.22 Type 2 diabetes mellitus with diabetic chronic kidney disease; I50.9 Heart failure, unspecified; N18.3 Chronic kidney disease, stage 3 (moderate); K21.9 Gastro-esophageal reflux disease without esophagitis; M19.90 Unspecified osteoarthritis, unspecified site; F41.9 Anxiety disorder, unspecified; F32.9 Major depressive disorder, single episode, unspecified; Z66 Do not resuscitate; D69.6 Thrombocytopenia, unspecified; M51.36 Other intervertebral disc degeneration, lumbar region; G89.29 Other chronic pain; M70.61 Trochanteric bursitis, right hip; M70.62 Trochanteric bursitis, left hip; R41.89 Other symptoms and signs involving cognitive functions and awareness; F11.10 Opioid abuse, uncomplicated; M48.00 Spinal stenosis, site unspecified; R35.0 Frequency of micturition; R39.15 Urgency of urination; E66.01 Morbid (severe) obesity due to excess calories; Z99.81 Dependence on supplemental oxygen; Z88.2 Allergy status to sulfonamides; Z88.6 Allergy status to analgesic agent; Z88.0 Allergy status to penicillin; Z91.013 Allergy to seafood; Z90.710 Acquired absence of both cervix and uterus; Z83.3 Family history of diabetes mellitus; Z79.4 Long term (current) use of insulin; Z91.19 Patient's noncompliance with other medical treatment and regimen
CPT/HCPCS: 36415; 36600; 71045; 80048; 80053; 80307; 81001; 82550; 82553; 82805; 82962; 83690; 83735; 83880; 84484; 85025; 85027; 85610; 93005; 94640; 94660; 94760; 96360; J1644; J1815; J2060; J2405; J7030; J7620; 97110; 97116; 97535; 99285-25

== ENCOUNTER 2018-10-17 17:02 | Emergency (ER) | payer OTHER ==
[~2018-10-17] VITALS: Ht 170.2 cm; Wt 136.1 kg
[~2018-10-17 17:02] MED LIST changes: +ALBU2.5V8 IH; +CARV6.2511 PO; -CARV6.252 PO; -HYDR-2762 PO; +HYDR-2765 PO; +LIDO700A39 TD; -OXYC-327 PO; +OXYC1TAB19 PO; -PROAIR HFA8.5 GM IH; +SENN-22 PO
[2018-10-17 17:35] VITALS: BP 157/72
--- NOTE | 2018-10-17 18:34 | RAD ---
NECK SOFT TISSUE Clinical Indication: Palpable nodule Lt buttock/low back. Pt fell one month ago. Comparison: None. Findings: Real-time ultrasound imaging in the left buttock/low back area of interest is performed. There is a complex subcutaneous fluid collection in the area of concern measuring 11.7 cm transverse by 11.2 cm longitudinal by 4.9 cm AP. The fluid is hypoechoic or anechoic. Internal septations are seen. Color Doppler interrogation is negative. There is no surrounding hyperemia. IMPRESSION: Large complex subcutaneous fluid collection in the area of concern is probably late subacute hematoma or seroma. Considerable ultrasound follow-up in 3 months to assess for resolution. Electronically signed by: Jamal Groves MD (10/17/2018 6:29 PM) [facility]
--- NOTE | 2018-10-17 18:50 | PHYS DOC ---
Past Medical History Past Medical History: Anxiety, Asthma, Bipolar, Bronchitis, COPD, Depression, Diabetes-Type II, GERD Additional Past Medical Histor: CHRONIC BACK PAIN,spinal stenosis,edema, morbid obesity, narcotic abuse Past Surgical History: Hysterectomy, Other Additional Past Surgical Histo: Back surgery Alcohol Use: None Drug Use: None Adult General Chief Complaint Chief Complaint: OTHER COMPLAINTS [facility] HPI Patient is a 58 year old [f__sex] who presents with [] Review of Systems Review of Systems Constitutional: Denies fever or chills [] Eyes: Denies change in visual acuity, redness, or eye pain [] HENT: Denies nasal congestion or sore throat [] Respiratory: Denies cough or shortness of breath [] Cardiovascular: No additional information not addressed in HPI [] GI: Denies abdominal pain, nausea, vomiting, bloody stools or diarrhea [] : Denies dysuria or hematuria [] Musculoskeletal: Denies back pain or joint pain [] Integument: Denies rash or skin lesions [] Neurologic: Denies headache, focal weakness or sensory changes [] Endocrine: Denies polyuria or polydipsia [] All other systems were reviewed and found to be within normal limits, except as documented in this note. Allergies Allergies Allergies Coded Allergies Type Severity Reaction Last Updated Verified Fish Containing Products Allergy Intermediate Itching 10/15/15 Yes Penicillins Allergy Intermediate 02/04/14 Yes Sulfa (Sulfonamide Antibiotics) Allergy Intermediate 02/04/14 Yes codeine Allergy Intermediate 02/15/16 Yes morphine Allergy Intermediate Hives 02/15/16 Yes Physical Exam Physical Exam Constitutional: Well developed, well nourished, no acute distress, non-toxic appearance. [] HENT: Normocephalic, atraumatic, bilateral external ears normal, oropharynx moist, no oral exudates, nose normal. [] Eyes: PERRLA, EOMI, conjunctiva normal, no discharge. [] Neck: Normal range of motion, no tenderness, supple, no stridor. [] Cardiovascular:Heart rate regular rhythm, no murmur [] Lungs & Thorax: Bilateral breath sounds clear to auscultation [] Abdomen: Bowel sounds normal, soft, no tenderness, no masses, no pulsatile masses. [] Skin: Warm, dry, no erythema, no rash. [] Back: No tenderness, no CVA tenderness. [] Extremities: No tenderness, no cyanosis, no clubbing, ROM intact, no edema. [] Neurologic: Alert and oriented X 3, normal motor function, normal sensory function, no focal deficits noted. [] Psychologic: Affect normal, judgement normal, mood normal. [] Current Patient Data Vital Signs Vital Signs Date Time Temp Pulse Resp B/P (MAP) Pulse Ox O2 Delivery O2 Flow Rate FiO2 10/17/18 17:35 98.8 73 20 157/72 (100) 99 Room Air 98.8 EKG EKG [] Radiology/Procedures Radiology/Procedures [] Course & Med Decision Making Course & Med Decision Making Pertinent Labs and Imaging studies reviewed. (See chart for details) [] Dragon Disclaimer Dragon Disclaimer This electronic medical record was generated, in whole or in part, using a voice recognition dictation system. Departure Departure Impression: Primary Impression: Hematoma Disposition: 01 HOME, SELF-CARE Condition: STABLE Referrals: UNKNOWN PCP NAME (PCP) Patient Instructions: Hematoma Additional Instructions: Take ibuprofen or Tylenol for your hematoma for pain. Follow-up with your primary care provider in 3 months for an ultrasound to recheck for clearing. GLADYS TEMPLETON APRN Oct 17, 2018 18:49
== END 2018-10-17 18:54 | disposition home or self-care (01) ==
LOC: ER 17:02
DX: S30.0XXA Contusion of lower back and pelvis, initial encounter (principal); J44.9 Chronic obstructive pulmonary disease, unspecified; F31.9 Bipolar disorder, unspecified; E11.9 Type 2 diabetes mellitus without complications; K21.9 Gastro-esophageal reflux disease without esophagitis; G89.29 Other chronic pain; Z90.710 Acquired absence of both cervix and uterus; Z88.0 Allergy status to penicillin; Z88.2 Allergy status to sulfonamides; Z88.5 Allergy status to narcotic agent; Z91.013 Allergy to seafood; W18.39XA Other fall on same level, initial encounter; Y93.89 Activity, other specified; Y92.89 Other specified places as the place of occurrence of the external cause; Y99.8 Other external cause status
CPT/HCPCS: 76536; 99284-25

== ENCOUNTER 2019-01-23 07:41 | Inpatient (IN) | payer OTHER ==
[~2019-01-23] VITALS: Ht 167.6 cm; Wt 151.6 kg
[2019-01-23] MEDS ORDERED: IPRATRPIUM/ALBUTEROL 0.5/2.5MG 3 ML NEBU. NEB ONE (08:00)
[2019-01-23] MEDS ORDERED: methylPREDNISolone SOD SUCC PF 125 MG/2 ML VIAL. IV ONE (08:00)
[2019-01-23 08:27] LABS: BASO % 1 % (0-3); EOS # 0.1 x10^3/uL (0.0-0.7); EOS % 3 % (0-3); HEMATOCRIT 28.6 % (36.0-47.0); HEMOGLOBIN 9.3 g/dL (12.0-15.5); LYMPH # 0.9 x10^3/uL (1.0-4.8); LYMPH % 20 % (24-48); MEAN CORPUSCULAR HEMOGLOBIN 29 pg (25-35); MEAN CORPUSCULAR HGB CONC 32 g/dL (31-37); MEAN CORPUSCULAR VOLUME 89 fL (79-100); MONO # 0.3 x10^3/uL (0.0-1.1); MONO % 7 % (0-9); NEUT # 3.2 x10^3uL (1.8-7.7); NEUT % 70 % (31-73); PLATELET COUNT 100 x10^3/uL (140-400); RED BLOOD COUNT 3.22 x10^6/uL (3.50-5.40); RED CELL DISTRIBUTION WIDTH 14.7 % (11.5-14.5); WHITE BLOOD COUNT 4.6 x10^3/uL (4.0-11.0)
--- NOTE | 2019-01-23 08:33 | RAD ---
EXAM: Chest, single view. HISTORY: Shortness of air. COMPARISON: 08/20/2018 FINDINGS: A frontal view of the chest is obtained. There is no infiltrate, pleural effusion or pneumothorax. The heart is normal in size for portable technique. IMPRESSION: No acute pulmonary finding. Electronically signed by: Cydney Feng MD (01/23/2019 8:30 AM) [facility]
[2019-01-23 08:35] LABS: CALCIUM 7.8 mg/dL (8.5-10.1); GFR 25.4; POTASSIUM 3.8 mmol/L (3.5-5.1)
[2019-01-23 08:42] LABS: ALBUMIN 2.8 g/dL (3.4-5.0); ALBUMIN/GLOBULIN RATIO 0.8 (1.0-1.7); TOTAL BILIRUBIN 0.7 mg/dL (0.2-1.0); TOTAL PROTEIN 6.3 g/dL (6.4-8.2)
[2019-01-23 08:51] LABS: BILIRUBIN,URINE NEGATIVE (NEG); CLARITY,URINE CLEAR; COLOR,URINE YELLOW; NITRITE,URINE NEGATIVE (NEG); PH,URINE 5.5; PROTEIN,URINE NEGATIVE (NEG-TRACE); UROBILINOGEN,URINE 0.2 mg/dL (0.2 mg/dL)
--- NOTE | 2019-01-23 08:56 | PHYS DOC ---
Past Medical History Past Medical History: Anxiety, Asthma, Bipolar, Bronchitis, COPD, Depression, Diabetes-Type II, GERD Additional Past Medical Histor: CHRONIC BACK PAIN,spinal stenosis,edema, morbid obesity, narcotic abuse Past Surgical History: Hysterectomy, Other Additional Past Surgical Histo: Back surgery Alcohol Use: None Drug Use: None Adult General Chief Complaint Chief Complaint: SHORTNESS OF BREATH [facility] HPI Patient is a 58 year old female who presents with complaining of hurting all over and shortness of breath. Patient has history of fibromyalgia and states she has chronic pain all over and since her doctor changed her insulin 3 months ago, her pain is getting worse. Patient rated her pain 10 over 10 and denies new focal neuro deficit, fever and chills, chest pain. Patient also complaining of chronic shortness of breath and cough and lower extremity edema that getting worse recently. Patient is on 3 L of home oxygen and walked to the hospital with her oxygen inside of her car and had O2 sat of 69% at room air that increased to 84% with 3 L of oxygen started in triage. Review of Systems Review of Systems Constitutional: Denies fever or chills [] Eyes: Denies change in visual acuity, redness, or eye pain [] HENT: Denies nasal congestion or sore throat [] Respiratory: Force cough and shortness of breath Cardiovascular: No additional information not addressed in HPI [] GI: Denies abdominal pain, nausea, vomiting, bloody stools or diarrhea [] : Denies dysuria or hematuria [] Musculoskeletal: Reports back pain and joint pain Integument: Denies rash or skin lesions [] Neurologic: Denies headache, focal weakness or sensory changes [] Endocrine: Denies polyuria or polydipsia [] All other systems were reviewed and found to be within normal limits, except as documented in this note. Current Medications Current Medications Current Medications Medications (Trade) Dose Ordered Sig/Sunny Start Time Stop Time Status Last Admin Dose Admin Albuterol/ Ipratropium (Duoneb) 3 ml 1X ONCE 01/23/19 08:00 01/23/19 08:03 DC 01/23/19 08:04 3 ML Methylprednisolone Sodium Succinate (SOLU-Medrol 125MG VIAL) 125 mg 1X ONCE 01/23/19 08:00 01/23/19 08:03 DC 01/23/19 08:25 125 MG Allergies Allergies Allergies Coded Allergies Type Severity Reaction Last Updated Verified Fish Containing Products Allergy Intermediate Itching 10/15/15 Yes Penicillins Allergy Intermediate 02/04/14 Yes Sulfa (Sulfonamide Antibiotics) Allergy Intermediate 02/04/14 Yes codeine Allergy Intermediate 02/15/16 Yes morphine Allergy Intermediate Hives 02/15/16 Yes Physical Exam Physical Exam Constitutional: Well developed, well nourished, no acute distress, non-toxic appearance. [] HENT: Normocephalic, atraumatic, bilateral external ears normal, oropharynx moist, no oral exudates, nose normal. [] Eyes: PERRLA, EOMI, conjunctiva normal, no discharge. [] Neck: Normal range of motion, no tenderness, supple, no stridor. [] Cardiovascular:Heart rate regular rhythm, no murmur [] Lungs & Thorax: Bilateral breath sounds clear to auscultation [] Abdomen: Bowel sounds normal, soft, no tenderness, no masses, no pulsatile masses. [] Skin: Warm, dry, no erythema, no rash. [] Back: No tenderness, no CVA tenderness. [] Extremities: No tenderness, no cyanosis, no clubbing, ROM intact, no edema. [] Neurologic: Alert and oriented X 3, normal motor function, normal sensory function, no focal deficits noted. [] Psychologic: Affect normal, judgement normal, mood normal. [] Current Patient Data Vital Signs Vital Signs Date Time Temp Pulse Resp B/P (MAP) Pulse Ox O2 Delivery O2 Flow Rate FiO2 01/23/19 08:30 78 126/60 (82) 97 Nasal Cannula 3.0 01/23/19 07:50 98.2 28 98.2 Lab Values Laboratory Tests Test 01/23/19 08:10 01/23/19 08:41 White Blood Count 4.6 x10^3/uL (4.0-11.0) Red Blood Count 3.22 x10^6/uL (3.50-5.40) L Hemoglobin 9.3 g/dL (12.0-15.5) L Hematocrit 28.6 % (36.0-47.0) L Mean Corpuscular Volume 89 fL (79-100) Mean Corpuscular Hemoglobin 29 pg (25-35) Mean Corpuscular Hemoglobin Concent 32 g/dL (31-37) Red Cell Distribution Width 14.7 % (11.5-14.5) H Platelet Count 100 x10^3/uL (140-400) L Neutrophils (%) (Auto) 70 % (31-73) Lymphocytes (%) (Auto) 20 % (24-48) L Monocytes (%) (Auto) 7 % (0-9) Eosinophils (%) (Auto) 3 % (0-3) Basophils (%) (Auto) 1 % (0-3) Neutrophils # (Auto) 3.2 x10^3uL (1.8-7.7) Lymphocytes # (Auto) 0.9 x10^3/uL (1.0-4.8) L Monocytes # (Auto) 0.3 x10^3/uL (0.0-1.1) Eosinophils # (Auto) 0.1 x10^3/uL (0.0-0.7) Basophils # (Auto) 0.0 x10^3/uL (0.0-0.2) Sodium Level 140 mmol/L (136-145) Potassium Level 3.8 mmol/L (3.5-5.1) Chloride Level 102 mmol/L (98-107) Carbon Dioxide Level 31 mmol/L (21-32) Anion Gap 7 (6-14) Blood Urea Nitrogen 31 mg/dL (7-20) H Creatinine 2.0 mg/dL (0.6-1.0) H Estimated GFR (Cockcroft-Gault) 25.4 BUN/Creatinine Ratio 16 (6-20) Glucose Level 258 mg/dL (70-99) H Lactic Acid Level 2.7 mmol/L (0.4-2.0) H Calcium Level 7.8 mg/dL (8.5-10.1) L Magnesium Level 1.0 mg/dL (1.8-2.4) L Total Bilirubin 0.7 mg/dL (0.2-1.0) Aspartate Amino Transferase (AST) 20 U/L (15-37) Alanine Aminotransferase (ALT) 12 U/L (14-59) L Alkaline Phosphatase 81 U/L (46-116) Creatine Kinase 131 U/L (26-192) Troponin I Quantitative < 0.017 ng/mL (0.000-0.055) NS-Ikk-G-Type Natriuretic Peptide 970 pg/mL (0-124) H Total Protein 6.3 g/dL (6.4-8.2) L Albumin 2.8 g/dL (3.4-5.0) L Albumin/Globulin Ratio 0.8 (1.0-1.7) L Urine Collection Type Unknown Urine Color Yellow Urine Clarity Clear Urine pH 5.5 Urine Specific [place] 1.010 Urine Protein Negative mg/dL (NEG-TRACE) Urine Glucose (UA) Negative mg/dL (NEG) Urine Ketones (Stick) Negative mg/dL (NEG) Urine Blood Negative (NEG) Urine Nitrite Negative (NEG) Urine Bilirubin Negative (NEG) Urine Urobilinogen Dipstick 0.2 mg/dL (0.2 mg/dL) Urine Leukocyte Esterase Negative (NEG) Urine RBC 0 /HPF (0-2) Urine WBC 0 /HPF (0-4) Urine Squamous Epithelial Cells Few /LPF Urine Bacteria 0 /HPF (0-FEW) Laboratory Tests 01/23/19 08:10 Laboratory Tests 01/23/19 08:10 EKG EKG EKG interpreted by me. EKG at 0752 showed normal sinus rhythm at rate of 82, normal voltage QRS, normal AK and QT intervals, no acute ST and T-wave abnormalities. Radiology/Procedures Radiology/Procedures [][facility] [address] [place] [address] IMAGING REPORT Signed PATIENT: JERMAN MORALES ACCOUNT: [id number] : 1960 LOCATION: ER AGE: 58 SEX: F EXAM STATUS: REG ER ORD. PHYSICIAN: MICHELLE TERRY MD REASON: shortness of breath PROCEDURE: PORTABLE CHEST 1V EXAM: Chest, single view. HISTORY: Shortness of air. COMPARISON: 08/20/2018 FINDINGS: A frontal view of the chest is obtained. There is no infiltrate, pleural effusion or pneumothorax. The heart is normal in size for portable technique. IMPRESSION: No acute pulmonary finding. Electronically signed by: Cydney Al MD (01/23/2019 8:30 AM) [facility] DICTATED and SIGNED BY: CYDNEY AL MD DATE: 01/23/19829 Course & Med Decision Making Course & Med Decision Making Pertinent Labs and Imaging studies reviewed. (See chart for details) Patient requiring admission for further evaluation and treatment. Discussed with Dr. Garsia who is in agreement with admission. Discussed findings and plan with patient and family, who acknowledge understanding and agreement. Dragon Disclaimer Dragon Disclaimer This electronic medical record was generated, in whole or in part, using a voice recognition dictation system. Departure Departure Impression: Primary Impression: Acute and chronic respiratory failure ([id number]) Additional Impressions: COPD exacerbation Renal failure Anxiety Hyperglycemia Disposition: ADMITTED INPATIENT (at 0912) Admitting Physician: Fred Garsia (accepted admission at 0911) Condition: GUARDED Referrals: DAVE LUCIO MD (PCP) Problem Qualifiers Primary Impression: Acute and chronic respiratory failure ([id number]) Respiratory failure complication: unspecified whether with hypoxia or hypercapnia Qualified Codes: J96.20 - Acute and chronic respiratory failure, unspecified whether with hypoxia or hypercapnia Additional Impressions: Renal failure Renal failure chronicity: unspecified chronicity Qualified Codes: N19 - Unspecified kidney failure MICHELLE TERRY MD Jan 23, 2019 08:55
[2019-01-23] MEDS ORDERED: cefTRIAXone IV Push 1 GM VIAL. IVP ONE (09:00)
[2019-01-23] MEDS ORDERED: oxyCODONE/APAP 5/325 1 TAB TABLET PO ONE (09:00)
[2019-01-23 09:13] LABS: BASE EXCESS COOX 3 mmol/L (-3-3); HCO3 COOX 29 mmol/L (21-28); METHEMOGLOBIN 0.5 % (0.0-1.9); PCO2 COOX 53 mmHg (35-46); PO2 COOX 115 mmHg (65-108); SAT O2 COOX 97 % (92-99)
--- NOTE | 2019-01-23 09:13 | PDOC1 ---
History and Physical Date of Admission Date of Admission DATE: 01/23/19 TIME: 09:13 Identification/Chief Complaint Chief Complaint SEEN IN ER , 58 year old female who presents with complaining of hurting all over and shortness of breath. denies new focal neuro deficit, fever and chills, chest pain. also complaining of ACUTE shortness of breath and cough and lower extremity edema that getting worse recently.,on 3 L of home oxygen and walked INTO the hospital with her oxygen inside of her car and had O2 sat of 69% at room air that increased to 84% with 3 L of oxygen started in triage. Past Medical History Past Medical History Past Medical History Past Medical History: Anxiety, Asthma, Bipolar, Bronchitis, COPD, Depression, Diabetes-Type II, GERD Additional Past Medical Histor: CHRONIC BACK PAIN,spinal stenosis,edema, morbid obesity, narcotic abuse Past Surgical History: Hysterectomy, Other Additional Past Surgical Histo: Back surgery Alcohol Use: None Drug Use: None family hx obesity Cardiovascular: CHF, HTN Pulmonary: Asthma, COPD CENTRAL NERVOUS SYSTEM: Other GI: GERD Heme/Onc: No pertinent hx Hepatobiliary: No pertinent hx Psych: Anxiety, Depression Musculoskeletal: Osteoarthritis, Other Rheumatologic: No pertinent hx Infectious disease: No pertinent hx Renal/: Chronic renal insuff, Urinary Incontinence Endocrine: No pertinent hx Past Surgical History Past Surgical History: Tonsillectomy, Hysterectomy, Other Family History Family History: Diabetes Social History Smoke: Quit ALCOHOL: none Drugs: None Current Problem List Problem List Problems Medical Problems: (1) Acute and chronic respiratory failure ([id number]) Status: Acute (2) Anxiety Status: Acute (3) Hyperglycemia Status: Acute (4) Renal failure Status: Acute Current Medications Current Medications Current Medications Albuterol/ Ipratropium (Duoneb) 3 ml 1X ONCE NEB Last administered on at 08:04; Start 01/23/19 at 08:00; Stop 01/23/19 at 08:03; Status DC Methylprednisolone Sodium Succinate (SOLU-Medrol 125MG VIAL) 125 mg 1X ONCE IV Last administered on 01/23/19at 08:25; Start 01/23/19 at 08:00; Stop 01/23/19 at 08:03; Status DC Oxycodone/ Acetaminophen (Percocet 5/325) 1 tab 1X ONCE PO Last administered on 4/9/19at 09:01; Start 01/23/19 at 09:00; Stop 01/23/19 at 09:01; Status DC Ceftriaxone Sodium (Rocephin) 1 gm 1X ONCE IVP Last administered on 01/23/19at 09:00; Start 01/23/19 at 09:00; Stop 01/23/19 at 09:01; Status DC Active Scripts Active Lidocaine 1 Each Adh..patch 1 Patch TD QHS 30 Days Senna-Time S Tablet (Sennosides/Docusate Sodium) 1 Each Tablet 1 Tab PO BID 14 Days Levemir Flextouch (Insulin Detemir) 100 Unit/1 Ml Insuln.pen 18 Units SQ QHS Novolog Flexpen (Insulin Aspart) 100 Unit/1 Ml Insuln.pen 10 Units SQ TIDAC Topamax (Topiramate) 25 Mg Tablet 25 Mg PO HS Combivent Respimat Inhal (Ipratropium/Albuterol Sulfate) 4 Gm Aer.w.adap 2 Inh IH QID Lasix (Furosemide) 40 Mg Tablet 1 Tab PO DAILY Aldactone (Spironolactone) 25 Mg Tablet 25 Mg PO DAILY Klor-Con M20 (Potassium Chloride) 20 Meq Tablet.er 40 Meq PO DAILY Nystop (Nystatin) 1 Omid Omid 1 Omid TP BID PRN [Aspirin] 325 MG Tablet. 325 Mg PO DAILYWBKFT Reported Wellbutrin Sr (Bupropion Hcl) 150 Mg Tablet.er 1 Tab PO BID Aspirin 81 Mg Tab.chew 1 Tab PO DAILY Montelukast Sodium Tablet (Montelukast Sodium) 10 Mg Tablet 10 Mg PO HS Carvedilol 6.25 Mg Tablet 6.25 Mg PO BIDWMEALS Pantoprazole Sodium 40 Mg Tablet. 40 Mg PO DAILY Allergies Allergies: Coded Allergies: Fish Containing Products (Verified Allergy, Intermediate, Itching, ) allergic to fish itching Penicillins (Verified Allergy, Intermediate, 02/04/14) Sulfa (Sulfonamide Antibiotics) (Verified Allergy, Intermediate, 02/04/14) codeine (Verified Allergy, Intermediate, 02/15/16) Has tolerated oxycodone morphine (Verified Allergy, Intermediate, Hives, 02/15/16) Has tolerated oxycodone ROS Review of System Review of Systems Review of Systems Constitutional: Denies fever or chills [] Eyes: Denies change in visual acuity, redness, or eye pain [] HENT: Denies nasal congestion or sore throat [] Respiratory: SEVERE cough and shortness of breath Cardiovascular: No additional information not addressed in HPI [] GI: Denies abdominal pain, nausea, vomiting, bloody stools or diarrhea [] : Denies dysuria or hematuria [] Musculoskeletal: Reports back pain and joint pain Integument: Denies rash or skin lesions [] Neurologic: Denies headache, focal weakness or sensory changes [] Endocrine: Denies polyuria or polydipsia [] 14 PT systems were reviewed and found to be within normal limits, except as documented Physical Exam Physical Exam Physical Exam Physical Exam Constitutional: Well developed, well nourished, MOD acute distress, non-toxic appearance. [] HENT: Normocephalic, atraumatic, bilateral external ears normal, oropharynx moist, no oral exudates, nose normal. [] Eyes: PERRLA, EOMI, conjunctiva normal, no discharge. [] Neck: Normal range of motion, no tenderness, supple, no stridor. [] Cardiovascular:Heart rate regular rhythm, no murmur [] Lungs & Thorax: Bilateral breath sounds DISTANT [] Abdomen: Bowel sounds normal, soft, no tenderness, no masses, no pulsatile masses. [] Skin: Warm, dry, no erythema, no rash. [] Back: No tenderness, no CVA tenderness. [] Extremities: No tenderness, no cyanosis, no clubbing, ROM intact, no edema. [] Neurologic: Alert and oriented X 3, normal motor function, normal sensory function, no focal deficits noted. [] Psychologic: Affect normal, judgement normal, mood normal. [] General: Oriented X3, Cooperative, moderate distress HEENT: Atraumatic, PERRLA, EOMI, Mucous membr. moist/pink Heart: no thrills Breasts: Not examined Rectal Exam: not examined PELVIC: Examination not indicated Extremities: No cyanosis Neuro: Normal speech, Cranial nerves 3-12 NL Psych/Mental Status: Mental status NL, Mood NL Vitals Vitals Vital Signs Date Time Temp Pulse Resp B/P (MAP) Pulse Ox O2 Delivery O2 Flow Rate FiO2 01/23/19 09:01 24 01/23/19 08:04 96 Nasal Cannula 3.0 01/23/19 07:50 98.2 90 127/59 (81) 98.2 Labs Labs Laboratory Tests Test 01/23/19 08:10 White Blood Count 4.6 x10^3/uL (4.0-11.0) Red Blood Count 3.22 x10^6/uL (3.50-5.40) Hemoglobin 9.3 g/dL (12.0-15.5) Hematocrit 28.6 % (36.0-47.0) Mean Corpuscular Volume 89 fL (79-100) Mean Corpuscular Hemoglobin 29 pg (25-35) Mean Corpuscular Hemoglobin Concent 32 g/dL (31-37) Red Cell Distribution Width 14.7 % (11.5-14.5) Platelet Count 100 x10^3/uL (140-400) Neutrophils (%) (Auto) 70 % (31-73) Lymphocytes (%) (Auto) 20 % (24-48) Monocytes (%) (Auto) 7 % (0-9) Eosinophils (%) (Auto) 3 % (0-3) Basophils (%) (Auto) 1 % (0-3) Neutrophils # (Auto) 3.2 x10^3uL (1.8-7.7) Lymphocytes # (Auto) 0.9 x10^3/uL (1.0-4.8) Monocytes # (Auto) 0.3 x10^3/uL (0.0-1.1) Eosinophils # (Auto) 0.1 x10^3/uL (0.0-0.7) Basophils # (Auto) 0.0 x10^3/uL (0.0-0.2) Sodium Level 140 mmol/L (136-145) Potassium Level 3.8 mmol/L (3.5-5.1) Chloride Level 102 mmol/L (98-107) Carbon Dioxide Level 31 mmol/L (21-32) Anion Gap 7 (6-14) Blood Urea Nitrogen 31 mg/dL (7-20) Creatinine 2.0 mg/dL (0.6-1.0) Estimated GFR (Cockcroft-Gault) 25.4 BUN/Creatinine Ratio 16 (6-20) Glucose Level 258 mg/dL (70-99) Lactic Acid Level 2.7 mmol/L (0.4-2.0) Calcium Level 7.8 mg/dL (8.5-10.1) Magnesium Level 1.0 mg/dL (1.8-2.4) Total Bilirubin 0.7 mg/dL (0.2-1.0) Aspartate Amino Transf (AST/SGOT) 20 U/L (15-37) Alanine Aminotransferase (ALT/SGPT) 12 U/L (14-59) Alkaline Phosphatase 81 U/L (46-116) Creatine Kinase 131 U/L (26-192) Troponin I Quantitative < 0.017 ng/mL (0.000-0.055) XC-Fqp-H-Type Natriuretic Peptide 970 pg/mL (0-124) Total Protein 6.3 g/dL (6.4-8.2) Albumin 2.8 g/dL (3.4-5.0) Albumin/Globulin Ratio 0.8 (1.0-1.7) Laboratory Tests Test 01/23/19 08:10 White Blood Count 4.6 x10^3/uL (4.0-11.0) Red Blood Count 3.22 x10^6/uL (3.50-5.40) Hemoglobin 9.3 g/dL (12.0-15.5) Hematocrit 28.6 % (36.0-47.0) Mean Corpuscular Volume 89 fL (79-100) Mean Corpuscular Hemoglobin 29 pg (25-35) Mean Corpuscular Hemoglobin Concent 32 g/dL (31-37) Red Cell Distribution Width 14.7 % (11.5-14.5) Platelet Count 100 x10^3/uL (140-400) Neutrophils (%) (Auto) 70 % (31-73) Lymphocytes (%) (Auto) 20 % (24-48) Monocytes (%) (Auto) 7 % (0-9) Eosinophils (%) (Auto) 3 % (0-3) Basophils (%) (Auto) 1 % (0-3) Neutrophils # (Auto) 3.2 x10^3uL (1.8-7.7) Lymphocytes # (Auto) 0.9 x10^3/uL (1.0-4.8) Monocytes # (Auto) 0.3 x10^3/uL (0.0-1.1) Eosinophils # (Auto) 0.1 x10^3/uL (0.0-0.7) Basophils # (Auto) 0.0 x10^3/uL (0.0-0.2) Sodium Level 140 mmol/L (136-145) Potassium Level 3.8 mmol/L (3.5-5.1) Chloride Level 102 mmol/L (98-107) Carbon Dioxide Level 31 mmol/L (21-32) Anion Gap 7 (6-14) Blood Urea Nitrogen 31 mg/dL (7-20) Creatinine 2.0 mg/dL (0.6-1.0) Estimated GFR (Cockcroft-Gault) 25.4 BUN/Creatinine Ratio 16 (6-20) Glucose Level 258 mg/dL (70-99) Lactic Acid Level 2.7 mmol/L (0.4-2.0) Calcium Level 7.8 mg/dL (8.5-10.1) Magnesium Level 1.0 mg/dL (1.8-2.4) Total Bilirubin 0.7 mg/dL (0.2-1.0) Aspartate Amino Transf (AST/SGOT) 20 U/L (15-37) Alanine Aminotransferase (ALT/SGPT) 12 U/L (14-59) Alkaline Phosphatase 81 U/L (46-116) Creatine Kinase 131 U/L (26-192) Troponin I Quantitative < 0.017 ng/mL (0.000-0.055) HB-Pum-D-Type Natriuretic Peptide 970 pg/mL (0-124) Total Protein 6.3 g/dL (6.4-8.2) Albumin 2.8 g/dL (3.4-5.0) Albumin/Globulin Ratio 0.8 (1.0-1.7) Images Images EXAM: Chest, single view. HISTORY: Shortness of air. COMPARISON: 08/20/2018 FINDINGS: A frontal view of the chest is obtained. There is no infiltrate, pleural effusion or pneumothorax. The heart is normal in size for portable technique. IMPRESSION: No acute pulmonary finding. Electronically signed by: Cydney Feng MD (01/23/2019 8:30 AM) [place] [id number] DICTATED and SIGNED BY: CYDNEY FENG MD DATE: 01/23/19 2197 VTE Prophylaxis Ordered VTE Prophylaxis Devices: Yes VTE Pharmacological Prophylaxi: Yes Assessment/Plan Assessment/Plan impression SEVERE EXAC OF COPD with extreme hypoxia on presentation/ PNEUMONITIS ACUTE SIRS hx co2 retention, JOSELYN Acute on chronic combined hypoxic and hx severe hypercapnic respiratory failure DM2 on insulin Acute renal failure, vasomotor CKD3 HTN morbid obeisty, extreme chronic pain syndrome CKD stage 3-4 plan: no narcotics due to hypercapnea consult pulm IV ROCEPHIN, VANC in er, d/c vanc due to ckd bipap at night, pt refuses. on NC duoneb, QID insulin to lantus 15u qhs, aspart 5u tid, ssi cough meds dvt ppx PTOT abdominal binder when up consulted dr johnson IV STEROIDS, taper iv fluid support nephrology consult 74 min pt exam, chart review,> 50% of time with pt exam, chart review, pt care coordination ACE ZELAYA MD Jan 23, 2019 09:13
[2019-01-23 09:14] LABS: BACTERIA,URINE 0 /HPF (0-FEW); RBC,URINE 0 /HPF (0-2); SQUAMOUS EPITHELIAL CELL,UR FEW /LPF; WBC,URINE 0 /HPF (0-4)
[2019-01-23] MEDS ORDERED: IV NORMAL SALINE 1000ML BAG 1,000 ML IV ONE (09:15)
[2019-01-23] MEDS ORDERED: MAGNESIUM SULFATE 2GM 50 ML IV ONE (09:15)
[2019-01-23] MEDS ORDERED: VANCOMYCIN 2 GM in IV NORMAL SALINE 500ML BAG 500 ML IV ONE (09:30)
[2019-01-23] MEDS ORDERED: NYSTATIN TOPICAL POWDER 15GM BOTTLE. TP PRN (09:30)
[2019-01-23] MEDS: IV NORMAL SALINE 1000ML BAG 1,000 ML IV SCH ×3 (09:30→23:18)
[2019-01-23] MEDS ORDERED: DEXTROSE 50% 25 GM / 50ML DISP.SYRIN. IV PRN (10:15)
[2019-01-23 11:00] VITALS: BP 141/60
--- NOTE | 2019-01-23 11:00 | EKG ---
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
[2019-01-23] MEDS: INSULIN LISPRO 300 UNITS/3 ML INSULN.PEN. SQ SCH ×4 (12:00→18:12)
[2019-01-23] MEDS: SPIRONOLACTONE 25 MG TABLET PO SCH (12:50)
[2019-01-23] MEDS: SENNOSIDES/DOCUSATE 8.6/50MG TABLET. PO SCH ×2 (12:50→20:54)
[2019-01-23] MEDS: CARVEDILOL 6.25 MG TABLET. PO SCH ×2 (12:50→18:00)
[2019-01-23] MEDS: POTASSIUM CHLORIDE 20 MEQ TABLET.ER. PO SCH (12:50)
[2019-01-23] MEDS: PANTOPRAZOLE 40 MG TABLET.DR. PO SCH (12:51)
[2019-01-23] MEDS: FUROSEMIDE 40 MG TABLET. PO SCH (12:51)
[2019-01-23] MEDS: ASPIRIN CHEWABLE 81 MG TABLET. PO SCH (12:51)
[2019-01-23] MEDS: buPROPion SR 150 MG TABLET.SA PO SCH ×2 (12:51→20:54)
[2019-01-23] MEDS ORDERED: NON FORMULARY ITEM (Ipratropium/Albuterol Sulfate (Combivent Respimat Inhal) 2 INH) IH SCH (13:00)
--- NOTE | 2019-01-23 13:02 | NUR ---
Entered patient's room to administer PO meds. IV was beeping. Patient said "Oh yeah, my IV came out". Previous order received for PICC line placement. Vanco, mag, and fluids on hold until IV access obtained. Dr. Garsia notified.
[2019-01-23] MEDS ORDERED: LIDOCAINE WITH 8.4% SOD BICARB 3 ML DISP.SYRIN. ONE (13:44)
[2019-01-23] MEDS ORDERED: LIDOCAINE WITH 8.4% SOD BICARB 3 ML DISP.SYRIN. INJ ONE (14:00)
[2019-01-23 15:00] VITALS: BP 145/68
--- NOTE | 2019-01-23 16:32 | PDOC2 ---
CONSULT Date of Consult Date of Consult DATE: 01/23/19 TIME: 16:13 Reason for Consult Reason for Consult: Renal failure Source Source: Chart review, Patient History of Present Illness Reason for Visit: Patient is a 58 year old CF who presented to ED with complain of hurting all over and shortness of breath. Patient has history of fibromyalgia and states she has chronic pain all over and since her doctor changed her insulin 3 months ago, her pain is getting worse. Patient rated her pain 10 over 10 and denies new focal neuro deficit, fever and chills, chest pain. Patient also complaining of chronic shortness of breath and cough and lower extremity edema that getting worse recently. Patient is on 3 L of home oxygen and walked to the hospital with her oxygen inside of her car and had O2 sat of 69% at room air that increased to 84% with 3 L of oxygen started in triage. She reports she has never seen a research scientist and doesn't know anything is wrong with her kidneys except she urinates a lot (Not new), denies any symptoms of UTI. She states her LE edema is worse She reports taking Advil 2/day, states her PCP doesnt give her any pain meds . Past Medical History Cardiovascular: CHF, HTN Pulmonary: Asthma, COPD CENTRAL NERVOUS SYSTEM: Other GI: GERD Heme/Onc: No pertinent hx Hepatobiliary: No pertinent hx Psych: Anxiety, Depression Musculoskeletal: Osteoarthritis, Other Rheumatologic: No pertinent hx Infectious disease: No pertinent hx Renal/: Chronic renal insuff, Urinary Incontinence Endocrine: No pertinent hx Past Surgical History Past Surgical History: Tonsillectomy, Hysterectomy, Other Family History Family History: Diabetes Social History Quit ALCOHOL: none Drugs: None Lives: with Family Domestic Violence: Neg Current Problem List Problem List Problems Medical Problems: (1) Acute and chronic respiratory failure ([id number]) Status: Acute (2) Anxiety Status: Acute (3) Hyperglycemia Status: Acute (4) Renal failure Status: Acute Current Medications Current Medications Current Medications Albuterol/ Ipratropium (Duoneb) 3 ml 1X ONCE NEB Last administered on at 08:04; Start 01/23/19 at 08:00; Stop 01/23/19 at 08:03; Status DC Methylprednisolone Sodium Succinate (SOLU-Medrol 125MG VIAL) 125 mg 1X ONCE IV Last administered on 01/23/19at 08:25; Start 01/23/19 at 08:00; Stop 01/23/19 at 08:03; Status DC Oxycodone/ Acetaminophen (Percocet 5/325) 1 tab 1X ONCE PO Last administered on 01/23/19 09:01; Start 01/23/19 at 09:00; Stop 01/23/19 at 09:01; Status DC Ceftriaxone Sodium (Rocephin) 1 gm 1X ONCE IVP Last administered on 01/23/19 09:00; Start 01/23/19 at 09:00; Stop 01/23/19 at 09:01; Status DC Magnesium Sulfate 50 ml @ 25 mls/hr 1X ONCE IV Last administered on 01/23/19 15:06; Start 01/23/19 at 09:15; Stop 01/23/19 at 11:14; Status DC Sodium Chloride 1,000 ml @ 1,000 mls/hr 1X ONCE IV Last administered on 15:07; Start 01/23/19 at 09:15; Stop 01/23/19 at 10:14; Status DC Vancomycin HCl 2 gm/Sodium Chloride 500 ml @ 250 mls/hr 1X ONCE IV Last administered on 01/23/19 09:52; Start 01/23/19 at 09:30; Stop 01/23/19 at 11:29; Status DC Sodium Chloride 1,000 ml @ 150 mls/hr Q6H40M IV ; Start 01/23/19 at 09:30; Stop 01/24/19 at 09:29 Aspirin (Children'S Aspirin) 81 mg DAILY PO Last administered on 01/23/19 12:51 ; Start 01/23/19 at 11:00 Bupropion HCl (Wellbutrin Sr) 150 mg BID PO Last administered on 01/23/19 12:51 ; Start 01/23/19 at 11:00 Carvedilol (Coreg) 6.25 mg BIDWMEALS PO Last administered on 01/23/19 12:50; Start 01/23/19 at 11:00 Furosemide (Lasix) 40 mg DAILY PO Last administered on 01/23/19 12:51; Start at 11:00 Nystatin (Nystop) 1 omid PRN BID PRN TP Yeast infection; Start 01/23/19 at 09:30 Potassium Chloride (Klor-Con) 40 meq DAILY PO Last administered on 01/23/19at 12: 50; Start 01/23/19 at 11:00 Senna/Docusate Sodium (Senna Plus) 1 tab BID PO Last administered on 01/23/19at 12:50; Start 01/23/19 at 11:00 Insulin Human Lispro (HumaLOG) 10 units TIDWMEALS SQ Last administered on at 12:55; Start 01/23/19 at 12:00 Insulin Glargine (Lantus) 18 units QHS SQ ; Start 01/23/19 at 21:00 Lidocaine (Lidoderm) 1 patch QHS TD ; Start 01/23/19 at 21:00 Montelukast Sodium (Singulair) 10 mg QHS PO ; Start 01/23/19 at 21:00 Spironolactone (Aldactone) 25 mg DAILY PO Last administered on 01/23/19at 12:50; Start 01/23/19 at 11:00 Topiramate (Topamax) 25 mg QHS PO ; Start 01/23/19 at 21:00 Non-Formulary Medication ([Aspirin] ) 325 mg DAILYWBKFT PO ; Start 01/24/19 at 08:00; Status UNV Pantoprazole Sodium (Protonix) 40 mg DAILYAC PO Last administered on 01/23/19at 12:51; Start 01/23/19 at 11:00 Non-Formulary Medication (Ipratropium/ Albuterol Sulfate (Combivent Respimat Inhal)) 2 inh QID IH ; Start 01/23/19 at 13:00; Status UNV Albuterol/ Ipratropium (Duoneb) 3 ml RTQID NEB ; Start 01/23/19 at 12:00 Insulin Human Lispro (HumaLOG) 0-5 UNITS TIDWMEALS SQ ; Start 01/23/19 at 12:00 Dextrose (Dextrose 50%-Water Syringe) 12.5 gm PRN Q15MIN PRN IV SEE COMMENTS; Start 01/23/19 at 10:15 Lidocaine/Sodium Bicarbonate (Buffered Lidocaine 1%) 3 ml STK-MED ONCE .ROUTE ; Start 01/23/19 at 13:44; Stop 01/23/19 at 13:45; Status DC Lidocaine/Sodium Bicarbonate (Buffered Lidocaine 1%) 3 ml 1X ONCE INJ Last administered on 01/23/19at 14:01; Start 01/23/19 at 14:00; Stop 01/23/19 at 14:01; Status DC Active Scripts Active Lidocaine 1 Each Adh..patch 1 Patch TD QHS 30 Days Senna-Time S Tablet (Sennosides/Docusate Sodium) 1 Each Tablet 1 Tab PO BID 14 Days Levemir Flextouch (Insulin Detemir) 100 Unit/1 Ml Insuln.pen 18 Units SQ QHS Novolog Flexpen (Insulin Aspart) 100 Unit/1 Ml Insuln.pen 10 Units SQ TIDAC Topamax (Topiramate) 25 Mg Tablet 25 Mg PO HS Combivent Respimat Inhal (Ipratropium/Albuterol Sulfate) 4 Gm Aer.w.adap 2 Inh IH QID Lasix (Furosemide) 40 Mg Tablet 1 Tab PO DAILY Aldactone (Spironolactone) 25 Mg Tablet 25 Mg PO DAILY Klor-Con M20 (Potassium Chloride) 20 Meq Tablet.er 40 Meq PO DAILY Nystop (Nystatin) 1 Omid Omid 1 Omid TP BID PRN [Aspirin] 325 MG Tablet. 325 Mg PO DAILYWBKFT Reported Wellbutrin Sr (Bupropion Hcl) 150 Mg Tablet.er 1 Tab PO BID Aspirin 81 Mg Tab.chew 1 Tab PO DAILY Montelukast Sodium Tablet (Montelukast Sodium) 10 Mg Tablet 10 Mg PO HS Carvedilol (Carvedilol) 6.25 Mg Tablet 6.25 Mg PO BIDWMEALS Pantoprazole Sodium 40 Mg Tablet. 40 Mg PO DAILY Allergies Allergies: Coded Allergies: Fish Containing Products (Verified Allergy, Intermediate, Itching, ) allergic to fish itching Penicillins (Verified Allergy, Intermediate, 02/04/14) Sulfa (Sulfonamide Antibiotics) (Verified Allergy, Intermediate, 02/04/14) codeine (Verified Allergy, Intermediate, 02/15/16) Has tolerated oxycodone morphine (Verified Allergy, Intermediate, Hives, 02/15/16) Has tolerated oxycodone ROS Review of System As per HPI Physical Exam Physical Exam General: NAD, Morbidly obese HEENT: OM moist, O2 by NC(Chr) NECK Thick, Supple Heart: RRR LUNGS CTA,Non labored ABD- Obese Extremities: Edema + 2-3 Neuro: Normal speech, Cranial nerves 3-12 NL No Arnett Vital Signs Vital Signs Date Time Temp Pulse Resp B/P (MAP) Pulse Ox O2 Delivery O2 Flow Rate FiO2 01/23/19 15:00 97.7 80 20 145/68 (93) 93 Nasal Cannula 3.0 97.7 Assessment & Plan ?MUKESH - Vasomotor On Lasix, Aldactone at home Takes NSAID every day UA unremarkable E-Lytes and acid base stable, Monitor I/O and daily standing weight CKD stage 3 - Baseline Creat from review of [facility] records 1.5 to 2.1 since 2013 Patient was seen last by Dr. Brown in 2017 , will Obtain records from Office COPD exacerbation with Hypoxia On Chr Home O2 3 Lts JOSELYN Acute on chronic combined hypoxic and hx severe hypercapnic respiratory failure DM2 on insulin Morbid obesity, extreme Labs Labs Laboratory Tests Test 01/23/19 08:10 01/23/19 08:41 01/23/19 09:10 01/23/19 11:05 White Blood Count 4.6 x10^3/uL (4.0-11.0) Red Blood Count 3.22 x10^6/uL (3.50-5.40) Hemoglobin 9.3 g/dL (12.0-15.5) Hematocrit 28.6 % (36.0-47.0) Mean Corpuscular Volume 89 fL (79-100) Mean Corpuscular Hemoglobin 29 pg (25-35) Mean Corpuscular Hemoglobin Concent 32 g/dL (31-37) Red Cell Distribution Width 14.7 % (11.5-14.5) Platelet Count 100 x10^3/uL (140-400) Neutrophils (%) (Auto) 70 % (31-73) Lymphocytes (%) (Auto) 20 % (24-48) Monocytes (%) (Auto) 7 % (0-9) Eosinophils (%) (Auto) 3 % (0-3) Basophils (%) (Auto) 1 % (0-3) Neutrophils # (Auto) 3.2 x10^3uL (1.8-7.7) Lymphocytes # (Auto) 0.9 x10^3/uL (1.0-4.8) Monocytes # (Auto) 0.3 x10^3/uL (0.0-1.1) Eosinophils # (Auto) 0.1 x10^3/uL (0.0-0.7) Basophils # (Auto) 0.0 x10^3/uL (0.0-0.2) Sodium Level 140 mmol/L (136-145) Potassium Level 3.8 mmol/L (3.5-5.1) Chloride Level 102 mmol/L (98-107) Carbon Dioxide Level 31 mmol/L (21-32) Anion Gap 7 (6-14) Blood Urea Nitrogen 31 mg/dL (7-20) Creatinine 2.0 mg/dL (0.6-1.0) Estimated GFR (Cockcroft-Gault) 25.4 BUN/Creatinine Ratio 16 (6-20) Glucose Level 258 mg/dL (70-99) Lactic Acid Level 2.7 mmol/L (0.4-2.0) Calcium Level 7.8 mg/dL (8.5-10.1) Magnesium Level 1.0 mg/dL (1.8-2.4) Total Bilirubin 0.7 mg/dL (0.2-1.0) Aspartate Amino Transf (AST/SGOT) 20 U/L (15-37) Alanine Aminotransferase (ALT/SGPT) 12 U/L (14-59) Alkaline Phosphatase 81 U/L (46-116) Creatine Kinase 131 U/L (26-192) Troponin I Quantitative < 0.017 ng/mL (0.000-0.055) AM-Lyc-N-Type Natriuretic Peptide 970 pg/mL (0-124) Total Protein 6.3 g/dL (6.4-8.2) Albumin 2.8 g/dL (3.4-5.0) Albumin/Globulin Ratio 0.8 (1.0-1.7) Urine Collection Type Unknown Urine Color Yellow Urine Clarity Clear Urine pH 5.5 Urine Specific [place] 1.010 Urine Protein Negative mg/dL (NEG-TRACE) Urine Glucose (UA) Negative mg/dL (NEG) Urine Ketones (Stick) Negative mg/dL (NEG) Urine Blood Negative (NEG) Urine Nitrite Negative (NEG) Urine Bilirubin Negative (NEG) Urine Urobilinogen Dipstick 0.2 mg/dL (0.2 mg/dL) Urine Leukocyte Esterase Negative (NEG) Urine RBC 0 /HPF (0-2) Urine WBC 0 /HPF (0-4) Urine Squamous Epithelial Cells Few /LPF Urine Bacteria 0 /HPF (0-FEW) O2 Saturation 97 % (92-99) Arterial Blood pH 7.37 (7.35-7.45) Arterial Blood pCO2 at Patient Temp 53 mmHg (35-46) Arterial Blood pO2 at Patient Temp 115 mmHg (65-108) Arterial Blood HCO3 29 mmol/L (21-28) Arterial Blood Base Excess 3 mmol/L (-3-3) Oxyhemoglobin 96.0 % Methemoglobin 0.5 % (0.0-1.9) Carbon Monoxide, Quantitative 0.1 % (0.0-1.9) FiO2 32 Glucose (Fingerstick) 136 mg/dL (70-99) Laboratory Tests Test 01/23/19 08:10 01/23/19 08:41 01/23/19 09:10 01/23/19 11:05 White Blood Count 4.6 x10^3/uL (4.0-11.0) Red Blood Count 3.22 x10^6/uL (3.50-5.40) Hemoglobin 9.3 g/dL (12.0-15.5) Hematocrit 28.6 % (36.0-47.0) Mean Corpuscular Volume 89 fL (79-100) Mean Corpuscular Hemoglobin 29 pg (25-35) Mean Corpuscular Hemoglobin Concent 32 g/dL (31-37) Red Cell Distribution Width 14.7 % (11.5-14.5) Platelet Count 100 x10^3/uL (140-400) Neutrophils (%) (Auto) 70 % (31-73) Lymphocytes (%) (Auto) 20 % (24-48) Monocytes (%) (Auto) 7 % (0-9) Eosinophils (%) (Auto) 3 % (0-3) Basophils (%) (Auto) 1 % (0-3) Neutrophils # (Auto) 3.2 x10^3uL (1.8-7.7) Lymphocytes # (Auto) 0.9 x10^3/uL (1.0-4.8) Monocytes # (Auto) 0.3 x10^3/uL (0.0-1.1) Eosinophils # (Auto) 0.1 x10^3/uL (0.0-0.7) Basophils # (Auto) 0.0 x10^3/uL (0.0-0.2) Sodium Level 140 mmol/L (136-145) Potassium Level 3.8 mmol/L (3.5-5.1) Chloride Level 102 mmol/L (98-107) Carbon Dioxide Level 31 mmol/L (21-32) Anion Gap 7 (6-14) Blood Urea Nitrogen 31 mg/dL (7-20) Creatinine 2.0 mg/dL (0.6-1.0) Estimated GFR (Cockcroft-Gault) 25.4 BUN/Creatinine Ratio 16 (6-20) Glucose Level 258 mg/dL (70-99) Lactic Acid Level 2.7 mmol/L (0.4-2.0) Calcium Level 7.8 mg/dL (8.5-10.1) Magnesium Level 1.0 mg/dL (1.8-2.4) Total Bilirubin 0.7 mg/dL (0.2-1.0) Aspartate Amino Transf (AST/SGOT) 20 U/L (15-37) Alanine Aminotransferase (ALT/SGPT) 12 U/L (14-59) Alkaline Phosphatase 81 U/L (46-116) Creatine Kinase 131 U/L (26-192) Troponin I Quantitative < 0.017 ng/mL (0.000-0.055) TZ-Phg-I-Type Natriuretic Peptide 970 pg/mL (0-124) Total Protein 6.3 g/dL (6.4-8.2) Albumin 2.8 g/dL (3.4-5.0) Albumin/Globulin Ratio 0.8 (1.0-1.7) Urine Collection Type Unknown Urine Color Yellow Urine Clarity Clear Urine pH 5.5 Urine Specific [place] 1.010 Urine Protein Negative mg/dL (NEG-TRACE) Urine Glucose (UA) Negative mg/dL (NEG) Urine Ketones (Stick) Negative mg/dL (NEG) Urine Blood Negative (NEG) Urine Nitrite Negative (NEG) Urine Bilirubin Negative (NEG) Urine Urobilinogen Dipstick 0.2 mg/dL (0.2 mg/dL) Urine Leukocyte Esterase Negative (NEG) Urine RBC 0 /HPF (0-2) Urine WBC 0 /HPF (0-4) Urine Squamous Epithelial Cells Few /LPF Urine Bacteria 0 /HPF (0-FEW) O2 Saturation 97 % (92-99) Arterial Blood pH 7.37 (7.35-7.45) Arterial Blood pCO2 at Patient Temp 53 mmHg (35-46) Arterial Blood pO2 at Patient Temp 115 mmHg (65-108) Arterial Blood HCO3 29 mmol/L (21-28) Arterial Blood Base Excess 3 mmol/L (-3-3) Oxyhemoglobin 96.0 % Methemoglobin 0.5 % (0.0-1.9) Carbon Monoxide, Quantitative 0.1 % (0.0-1.9) FiO2 32 Glucose (Fingerstick) 136 mg/dL (70-99) Review All relevant outside records, renal labs, imaging studies, telemetry/EKG's were reviewed. Images Images CxR-- A frontal view of the chest is obtained. There is no infiltrate, pleural effusion or pneumothorax. The heart is normal in size for portable technique. IMPRESSION: No acute pulmonary finding. Renal US 2014 Right Kidney: 10.6 cm. No hydronephrosis. Left Kidney: 11.9 cm. No hydronephrosis. Bladder: Decompressed with catheter IMPRESSION: No hydronephrosis bilaterally. GRAY PÉREZ MD Jan 23, 2019 16:32
[2019-01-23] MEDS: IPRATRPIUM/ALBUTEROL 0.5/2.5MG 3 ML NEBU. NEB SCH ×3 (17:18→20:36)
[2019-01-23] MEDS: LIDOCAINE (700MG/PATCH) PATCH. TD SCH (17:59)
[2019-01-23 19:30] VITALS: BP 158/96
[2019-01-23] MEDS: PATCH REMOVAL. MC SCH (20:54)
[2019-01-23] MEDS: MONTELUKAST SODIUM 10 MG TABLET. PO SCH (20:54)
[2019-01-23] MEDS: TOPIRAMATE 25 MG TABLET. PO SCH (20:54)
[2019-01-23] MEDS: INSULIN GLARGINE 300 UNITS/3 ML INSULN.PEN. SQ SCH (20:59)
[2019-01-23] MEDS ORDERED: LIDOCAINE (700MG/PATCH) PATCH. TD SCH (21:00)
[2019-01-23] MEDS: QUEtiapine 25 MG TABLET. PO SCH (23:17)
[2019-01-23] MEDS: oxyCODONE/APAP 5/325 1 TAB TABLET PO PRN (23:17)
[2019-01-23 23:19] VITALS: BP 166/63
[2019-01-24 03:15] VITALS: BP 140/51
[2019-01-24] MEDS: IPRATRPIUM/ALBUTEROL 0.5/2.5MG 3 ML NEBU. NEB SCH ×4 (06:15→19:42)
[2019-01-24] MEDS: IV NORMAL SALINE 1000ML BAG 1,000 ML IV SCH (06:30)
[2019-01-24] MEDS: PANTOPRAZOLE 40 MG TABLET.DR. PO SCH (06:30)
[2019-01-24 07:00] VITALS: BP 155/55
[2019-01-24] MEDS ORDERED: ASPIRIN 325 MG PO SCH (08:00)
[2019-01-24] MEDS: LIDOCAINE (700MG/PATCH) PATCH. TD SCH (08:50)
[2019-01-24] MEDS: ASPIRIN CHEWABLE 81 MG TABLET. PO SCH (08:51)
[2019-01-24] MEDS: SENNOSIDES/DOCUSATE 8.6/50MG TABLET. PO SCH ×2 (08:51→20:14)
[2019-01-24] MEDS: SPIRONOLACTONE 25 MG TABLET PO SCH (08:51)
[2019-01-24] MEDS: POTASSIUM CHLORIDE 20 MEQ TABLET.ER. PO SCH (08:51)
[2019-01-24] MEDS: buPROPion SR 150 MG TABLET.SA PO SCH ×2 (08:51→20:14)
[2019-01-24] MEDS: CARVEDILOL 6.25 MG TABLET. PO SCH ×2 (08:52→16:58)
[2019-01-24] MEDS: FUROSEMIDE 40 MG TABLET. PO SCH (08:52)
[2019-01-24] MEDS: INSULIN LISPRO 300 UNITS/3 ML INSULN.PEN. SQ SCH ×6 (08:54→17:15)
--- NOTE | 2019-01-24 09:21 | RAD ---
Exam: Fluoroscopic and ultrasound guided right percutaneous inserted central venous catheter placement 01/24/2019 9:17 AM .Indication: IVAB and electrolyte replacement. Poor veins. Technique: Informed oral and written consent were obtained. The right upper extremity was prepped and draped using sterile barrier technique. All elements of maximal sterile barrier technique including the use of a cap, mask, sterile gown, sterile gloves, large sterile sheet, appropriate hand hygiene, and 2% chlorhexidine for cutaneous antisepsis (or acceptable alternative antiseptic per current guidelines) were followed for this procedure.. Real-time ultrasound demonstrated a patent right basilic vein. The right upper extremity was prepped and draped in usual sterile fashion. 1% lidocaine used for local anesthesia. Using real-time ultrasound guidance the access needle percutaneously punctured the selected vein. Reference ultrasound images were saved to the medical record. A guidewire was advanced through the needle to the cavoatrial junction, and a peel-away sheath placed. The catheter was cut to length and inserted through the peel-away sheath such that its tip is at the cavoatrial junction. The wire and sheath were removed, and the catheter secured in place, and a sterile dressing was applied. Catheter was found to flush and aspirate normally. No immediate complications are identified. FLUORO TIME: 0.5 min DOSE AREA PRODUCT: 2 Gycm2 Impression: Ultrasound and fluoroscopically guided placement of a right upper extremity PICC line.
--- NOTE | 2019-01-24 10:57 | PDOC ---
PROGRESS NOTES History of Present Illness History of Present Illness VTE Prophylaxis Ordered VTE Prophylaxis Devices: Yes VTE Pharmacological Prophylaxi: Yes Assessment/Plan Assessment/Plan impression SEVERE EXAC OF COPD with extreme hypoxia on presentation/ PNEUMONITIS ACUTE SIRS hx co2 retention, JOSELYN Acute on chronic combined hypoxic and hx severe hypercapnic respiratory failure DM2 on insulin Acute renal failure, vasomotor CKD3 HTN morbid obeisty, extreme chronic pain syndrome CKD stage 3-4 MUKESH plan: no narcotics due to hypercapnea, SEVERE consult pulm IV ROCEPHIN, VANC in er, d/c vanc due to ckd bipap at night, pt refuses. on NC duoneb, QID insulin to lantus 15u qhs, aspart 5u tid, ssi cough meds dvt ppx PTOT abdominal binder when up consulted dr johnson IV STEROIDS, taper iv fluid support nephrology consult 47 min pt exam, chart review,> 50% of time with pt exam, chart review, pt care coordination AT HIGH RISK OF PULM ARREST, DUE TO BIPAP NONCOMPLIANCE PER MY CHART REVIEW Vitals Vitals Vital Signs Date Time Temp Pulse Resp B/P (MAP) Pulse Ox O2 Delivery O2 Flow Rate FiO2 01/24/19 08:52 77 155/55 01/24/19 08:00 Nasal Cannula 3.0 01/24/19 07:00 98.1 22 98.1 01/24/19 03:15 93 Physical Exam General: Alert, Oriented X3, Cooperative, mild distress, moderate distress Heart: Regular rate Lungs: Wheezing, Other Abdomen: Normal bowel sounds, Soft Extremities: No clubbing, No cyanosis Skin: No breakdown, No significant lesion Labs LABS Laboratory Tests Test 01/23/19 11:05 01/23/19 16:10 01/23/19 19:05 01/23/19 20:51 Glucose (Fingerstick) 136 mg/dL (70-99) 202 mg/dL (70-99) 267 mg/dL (70-99) Magnesium Level 1.4 mg/dL (1.8-2.4) Test 01/24/19 07:23 Glucose (Fingerstick) 173 mg/dL (70-99) Assessment and Plan Assessmemt and Plan Problems Medical Problems: (1) Acute and chronic respiratory failure ([id number]) Status: Acute (2) Anxiety Status: Acute (3) Hyperglycemia Status: Acute (4) Renal failure Status: Acute Comment Review of Relevant I have reviewed the following items kylee (where applicable) has been applied. Labs Laboratory Tests Test 01/23/19 08:10 01/23/19 08:41 01/23/19 09:10 01/23/19 11:05 White Blood Count 4.6 x10^3/uL (4.0-11.0) Red Blood Count 3.22 x10^6/uL (3.50-5.40) Hemoglobin 9.3 g/dL (12.0-15.5) Hematocrit 28.6 % (36.0-47.0) Mean Corpuscular Volume 89 fL (79-100) Mean Corpuscular Hemoglobin 29 pg (25-35) Mean Corpuscular Hemoglobin Concent 32 g/dL (31-37) Red Cell Distribution Width 14.7 % (11.5-14.5) Platelet Count 100 x10^3/uL (140-400) Neutrophils (%) (Auto) 70 % (31-73) Lymphocytes (%) (Auto) 20 % (24-48) Monocytes (%) (Auto) 7 % (0-9) Eosinophils (%) (Auto) 3 % (0-3) Basophils (%) (Auto) 1 % (0-3) Neutrophils # (Auto) 3.2 x10^3uL (1.8-7.7) Lymphocytes # (Auto) 0.9 x10^3/uL (1.0-4.8) Monocytes # (Auto) 0.3 x10^3/uL (0.0-1.1) Eosinophils # (Auto) 0.1 x10^3/uL (0.0-0.7) Basophils # (Auto) 0.0 x10^3/uL (0.0-0.2) Sodium Level 140 mmol/L (136-145) Potassium Level 3.8 mmol/L (3.5-5.1) Chloride Level 102 mmol/L (98-107) Carbon Dioxide Level 31 mmol/L (21-32) Anion Gap 7 (6-14) Blood Urea Nitrogen 31 mg/dL (7-20) Creatinine 2.0 mg/dL (0.6-1.0) Estimated GFR (Cockcroft-Gault) 25.4 BUN/Creatinine Ratio 16 (6-20) Glucose Level 258 mg/dL (70-99) Lactic Acid Level 2.7 mmol/L (0.4-2.0) Calcium Level 7.8 mg/dL (8.5-10.1) Magnesium Level 1.0 mg/dL (1.8-2.4) Total Bilirubin 0.7 mg/dL (0.2-1.0) Aspartate Amino Transf (AST/SGOT) 20 U/L (15-37) Alanine Aminotransferase (ALT/SGPT) 12 U/L (14-59) Alkaline Phosphatase 81 U/L (46-116) Creatine Kinase 131 U/L (26-192) Troponin I Quantitative < 0.017 ng/mL (0.000-0.055) [id number]-Type Natriuretic Peptide 970 pg/mL (0-124) Total Protein 6.3 g/dL (6.4-8.2) Albumin 2.8 g/dL (3.4-5.0) Albumin/Globulin Ratio 0.8 (1.0-1.7) Urine Collection Type Unknown Urine Color Yellow Urine Clarity Clear Urine pH 5.5 Urine Specific [place] 1.010 Urine Protein Negative mg/dL (NEG-TRACE) Urine Glucose (UA) Negative mg/dL (NEG) Urine Ketones (Stick) Negative mg/dL (NEG) Urine Blood Negative (NEG) Urine Nitrite Negative (NEG) Urine Bilirubin Negative (NEG) Urine Urobilinogen Dipstick 0.2 mg/dL (0.2 mg/dL) Urine Leukocyte Esterase Negative (NEG) Urine RBC 0 /HPF (0-2) Urine WBC 0 /HPF (0-4) Urine Squamous Epithelial Cells Few /LPF Urine Bacteria 0 /HPF (0-FEW) O2 Saturation 97 % (92-99) Arterial Blood pH 7.37 (7.35-7.45) Arterial Blood pCO2 at Patient Temp 53 mmHg (35-46) Arterial Blood pO2 at Patient Temp 115 mmHg (65-108) Arterial Blood HCO3 29 mmol/L (21-28) Arterial Blood Base Excess 3 mmol/L (-3-3) Oxyhemoglobin 96.0 % Methemoglobin 0.5 % (0.0-1.9) Carbon Monoxide, Quantitative 0.1 % (0.0-1.9) FiO2 32 Glucose (Fingerstick) 136 mg/dL (70-99) Test 01/23/19 16:10 01/23/19 19:05 01/23/19 20:51 01/24/19 07:23 Glucose (Fingerstick) 202 mg/dL (70-99) 267 mg/dL (70-99) 173 mg/dL (70-99) Magnesium Level 1.4 mg/dL (1.8-2.4) Laboratory Tests Test 01/23/19 11:05 01/23/19 16:10 01/23/19 19:05 01/23/19 20:51 Glucose (Fingerstick) 136 mg/dL (70-99) 202 mg/dL (70-99) 267 mg/dL (70-99) Magnesium Level 1.4 mg/dL (1.8-2.4) Test 01/24/19 07:23 Glucose (Fingerstick) 173 mg/dL (70-99) Microbiology 01/23/19 Blood Culture - Preliminary, Resulted NO GROWTH AFTER 1 DAY Medications Current Medications Albuterol/ Ipratropium (Duoneb) 3 ml 1X ONCE NEB Last administered on at 08:04; Start 01/23/19 at 08:00; Stop 01/23/19 at 08:03; Status DC Methylprednisolone Sodium Succinate (SOLU-Medrol 125MG VIAL) 125 mg 1X ONCE IV Last administered on 01/23/19at 08:25; Start 01/23/19 at 08:00; Stop 01/23/19 at 08:03; Status DC Oxycodone/ Acetaminophen (Percocet 5/325) 1 tab 1X ONCE PO Last administered on 01/23/19at 09:01; Start 01/23/19 at 09:00; Stop 01/23/19 at 09:01; Status DC Ceftriaxone Sodium (Rocephin) 1 gm 1X ONCE IVP Last administered on 01/23/19at 09:00; Start 01/23/19 at 09:00; Stop 01/23/19 at 09:01; Status DC Magnesium Sulfate 50 ml @ 25 mls/hr 1X ONCE IV Last administered on 01/23/19at 15:06; Start 01/23/19 at 09:15; Stop 01/23/19 at 11:14; Status DC Sodium Chloride 1,000 ml @ 1,000 mls/hr 1X ONCE IV Last administered on 15:07; Start 01/23/19 at 09:15; Stop 01/23/19 at 10:14; Status DC Vancomycin HCl 2 gm/Sodium Chloride 500 ml @ 250 mls/hr 1X ONCE IV Last administered on 01/23/19 09:52; Start 01/23/19 at 09:30; Stop 01/23/19 at 11:29; Status DC Sodium Chloride 1,000 ml @ 150 mls/hr Q6H40M IV Last administered on 06:30; Start 01/23/19 at 09:30; Stop 01/24/19 at 09:29; Status DC Aspirin (Children'S Aspirin) 81 mg DAILY PO Last administered on 01/24/19 08: 51; Start 01/23/19 at 11:00 Bupropion HCl (Wellbutrin Sr) 150 mg BID PO Last administered on 01/24/19 08: 51; Start 01/23/19 at 11:00 Carvedilol (Coreg) 6.25 mg BIDWMEALS PO Last administered on 01/24/19 08:52; Start 01/23/19 at 11:00 Furosemide (Lasix) 40 mg DAILY PO Last administered on 01/24/19 08:52; Start 01/23/19 at 11:00 Nystatin (Nystop) 1 omid PRN BID PRN TP Yeast infection; Start 01/23/19 at 09:30 Potassium Chloride (Klor-Con) 40 meq DAILY PO Last administered on 01/24/19 08 :51; Start 01/23/19 at 11:00 Senna/Docusate Sodium (Senna Plus) 1 tab BID PO Last administered on 01/24/19 08:51; Start 01/23/19 at 11:00 Insulin Human Lispro (HumaLOG) 10 units TIDWMEALS SQ Last administered on 08:54; Start 01/23/19 at 12:00 Insulin Glargine (Lantus) 18 units QHS SQ Last administered on 01/23/19 20:59; Start 01/23/19 at 21:00 Lidocaine (Lidoderm) 1 patch QHS TD ; Start 01/23/19 at 21:00; Stop 01/23/19 at 21 :00; Status DC Montelukast Sodium (Singulair) 10 mg QHS PO Last administered on 01/23/19 20:54 ; Start 01/23/19 at 21:00 Spironolactone (Aldactone) 25 mg DAILY PO Last administered on 01/24/19at 08:51 ; Start 01/23/19 at 11:00 Topiramate (Topamax) 25 mg QHS PO Last administered on 01/23/19 20:54; Start at 21:00 Non-Formulary Medication ([Aspirin] ) 325 mg DAILYWBKFT PO ; Start 01/24/19 at 08:00; Status UNV Pantoprazole Sodium (Protonix) 40 mg DAILYAC PO Last administered on 01/24/19 06:30; Start 01/23/19 at 11:00 Non-Formulary Medication (Ipratropium/ Albuterol Sulfate (Combivent Respimat Inhal)) 2 inh QID IH ; Start 01/23/19 at 13:00; Status UNV Albuterol/ Ipratropium (Duoneb) 3 ml RTQID NEB Last administered on 01/24/19 06:15; Start 01/23/19 at 12:00 Insulin Human Lispro (HumaLOG) 0-5 UNITS TIDWMEALS SQ Last administered on 01/24 08:55; Start 01/23/19 at 12:00 Dextrose (Dextrose 50%-Water Syringe) 12.5 gm PRN Q15MIN PRN IV SEE COMMENTS; Start 01/23/19 at 10:15 Lidocaine/Sodium Bicarbonate (Buffered Lidocaine 1%) 3 ml STK-MED ONCE .ROUTE ; Start 01/23/19 at 13:44; Stop 01/23/19 at 13:45; Status DC Lidocaine/Sodium Bicarbonate (Buffered Lidocaine 1%) 3 ml 1X ONCE INJ Last administered on 01/23/19 14:01; Start 01/23/19 at 14:00; Stop 01/23/19 at 14:01; Status DC Lidocaine (Lidoderm) 1 patch DAILY TD Last administered on 01/24/19at 08:50; Start 01/23/19 at 18:00 Miscellaneous (Lidoderm Patch Removal) 1 ea QHS MC Last administered on 4/9/ 19at 20:54; Start 01/23/19 at 21:00 Oxycodone/ Acetaminophen (Percocet 5/325) 1 tab PRN Q6HRS PRN PO PAIN Last administered on 01/23/19at 23:17; Start 01/23/19 at 22:45 Quetiapine Fumarate (SEROquel) 25 mg QHS PO ; Start 01/24/19 at 21:00; Stop 08/04 at 21:00; Status DC Quetiapine Fumarate (SEROquel) 25 mg QHS PO Last administered on 01/23/19at 23:17 ; Start 01/23/19 at 23:00 Enoxaparin Sodium (Lovenox 60mg Syringe) 60 mg Q12HR SQ ; Start 01/24/19 at 11: 30 Active Scripts Active Lidocaine 1 Each Adh..patch 1 Patch TD QHS 30 Days Senna-Time S Tablet (Sennosides/Docusate Sodium) 1 Each Tablet 1 Tab PO BID 14 Days Levemir Flextouch (Insulin Detemir) 100 Unit/1 Ml Insuln.pen 18 Units SQ QHS Novolog Flexpen (Insulin Aspart) 100 Unit/1 Ml Insuln.pen 10 Units SQ TIDAC Topamax (Topiramate) 25 Mg Tablet 25 Mg PO HS Combivent Respimat Inhal (Ipratropium/Albuterol Sulfate) 4 Gm Aer.w.adap 2 Inh IH QID Lasix (Furosemide) 40 Mg Tablet 1 Tab PO DAILY Aldactone (Spironolactone) 25 Mg Tablet 25 Mg PO DAILY Klor-Con M20 (Potassium Chloride) 20 Meq Tablet.er 40 Meq PO DAILY Nystop (Nystatin) 1 Omid Omid 1 Omid TP BID PRN [Aspirin] 325 MG Tablet. 325 Mg PO DAILYWBKFT Reported Wellbutrin Sr (Bupropion Hcl) 150 Mg Tablet.er 1 Tab PO BID Aspirin 81 Mg Tab.chew 1 Tab PO DAILY Montelukast Sodium Tablet (Montelukast Sodium) 10 Mg Tablet 10 Mg PO HS Carvedilol (Carvedilol) 6.25 Mg Tablet 6.25 Mg PO BIDWMEALS Pantoprazole Sodium 40 Mg Tablet. 40 Mg PO DAILY Vitals/I & O Vital Sign - Last 24 Hours 01/23/19 01/23/19 01/23/1919 11:00 12:50 15:00 17:20 Temp 97.6 97.7 97.6 97.7 Pulse 76 76 80 Resp 20 20 B/P (MAP) 141/60 (87) 141/60 145/68 (93) Pulse Ox 93 93 95 O2 Delivery Nasal Cannula Nasal Cannula Nasal Cannula O2 Flow Rate 3.0 3.0 3.0 01/23/19 01/23/19 01/23/19 01/23/19 18:00 19:30 20:00 20:38 Temp 97.3 97.3 Pulse 80 82 Resp 22 B/P (MAP) 145/68 158/96 (116) Pulse Ox 94 95 O2 Delivery Nasal Cannula Nasal Cannula Nasal Cannula O2 Flow Rate 2.0 2.0 2.0 01/23/19 01/23/19 01/24/19 01/24/19 23:17 23:19 03:15 06:16 Temp 97.8 97.9 97.8 97.9 Pulse 83 76 Resp 18 18 B/P (MAP) 166/63 (97) 140/51 (80) Pulse Ox 93 93 O2 Delivery Nasal Cannula Nasal Cannula Nasal Cannula Nasal Cannula O2 Flow Rate 2.0 2.0 2.0 2.0 01/24/19 01/24/19 01/24/19 07:00 08:00 08:52 Temp 98.1 98.1 Pulse 77 77 Resp 22 B/P (MAP) 155/55 (88) 155/55 O2 Delivery Nasal Cannula Nasal Cannula O2 Flow Rate 3.0 3.0 Intake and Output 01/23/19 01/23/19 01/24/19 15:00 23:00 07:00 Intake Total 300 ml 500 ml 2422 ml Output Total 301 ml Balance 300 ml 500 ml 2121 ml ACE ZELAYA MD Jan 24, 2019 10:57
[2019-01-24 11:00] VITALS: BP 128/45
[2019-01-24 15:00] VITALS: BP 145/67
[2019-01-24] MEDS ORDERED: MAGNESIUM SULFATE 2GM 50 ML IV ONE (16:00)
[2019-01-24] MEDS: cefTRIAXone IV Push 1 GM VIAL. IVP SCH (17:00)
[2019-01-24] MEDS: methylPREDNISolone SOD SUCC PF 40 MG/ML VIAL. IV SCH ×2 (17:10→22:15)
[2019-01-24 19:00] VITALS: BP 166/65
[2019-01-24] MEDS: MONTELUKAST SODIUM 10 MG TABLET. PO SCH (20:14)
[2019-01-24] MEDS: QUEtiapine 25 MG TABLET. PO SCH (20:14)
[2019-01-24] MEDS: TOPIRAMATE 25 MG TABLET. PO SCH (20:15)
[2019-01-24] MEDS: INSULIN GLARGINE 300 UNITS/3 ML INSULN.PEN. SQ SCH (20:20)
[2019-01-24] MEDS: PATCH REMOVAL. MC SCH (20:25)
[2019-01-24] MEDS ORDERED: QUEtiapine 25 MG TABLET. PO SCH (21:00)
[2019-01-24 23:00] VITALS: BP 163/63
[2019-01-25] MEDS: IBUPROFEN 200 MG TABLET. PO PRN ×3 (00:17→17:33)
[2019-01-25] MEDS: CYCLOBENZAPRINE 10 MG TABLET. PO PRN ×3 (00:18→17:33)
[2019-01-25 03:00] VITALS: BP 177/94
[2019-01-25] MEDS: methylPREDNISolone SOD SUCC PF 40 MG/ML VIAL. IV SCH ×3 (05:04→21:04)
[2019-01-25 06:01] LABS: ALBUMIN 3.1 g/dL (3.4-5.0); CALCIUM 7.5 mg/dL (8.5-10.1); GFR 25.4; PHOSPHORUS 2.9 mg/dL (2.6-4.7)
[2019-01-25] MEDS: IPRATRPIUM/ALBUTEROL 0.5/2.5MG 3 ML NEBU. NEB SCH ×4 (06:05→19:48)
[2019-01-25 07:25] VITALS: BP 149/49
[2019-01-25] MEDS: SENNOSIDES/DOCUSATE 8.6/50MG TABLET. PO SCH ×2 (08:51→21:00)
[2019-01-25] MEDS: buPROPion SR 150 MG TABLET.SA PO SCH ×2 (08:51→21:03)
[2019-01-25] MEDS: CARVEDILOL 6.25 MG TABLET. PO SCH ×2 (08:51→17:28)
[2019-01-25] MEDS: FUROSEMIDE 40 MG TABLET. PO SCH (08:52)
[2019-01-25] MEDS: ASPIRIN CHEWABLE 81 MG TABLET. PO SCH (08:52)
[2019-01-25] MEDS: PANTOPRAZOLE 40 MG TABLET.DR. PO SCH (08:52)
[2019-01-25] MEDS: LIDOCAINE (700MG/PATCH) PATCH. TD SCH (08:53)
[2019-01-25] MEDS: POTASSIUM CHLORIDE 20 MEQ TABLET.ER. PO SCH (09:00)
[2019-01-25] MEDS: SPIRONOLACTONE 25 MG TABLET PO SCH (09:00)
[2019-01-25] MEDS: INSULIN LISPRO 300 UNITS/3 ML INSULN.PEN. SQ SCH ×6 (09:05→17:51)
--- NOTE | 2019-01-25 10:10 | PDOC ---
PROGRESS NOTES Subjective Subjective She c/o bad night with her low back pain. Objective Objective Vital Signs Date Time Temp Pulse Resp B/P (MAP) Pulse Ox O2 Delivery O2 Flow Rate FiO2 01/25/19 08:51 89 149/49 01/25/19 07:25 97.9 20 98 Nasal Cannula 3.0 97.9 Intake and Output 01/25/19 07:00 Output Total 900 ml Balance -900 ml Output Urine Total 900 ml # Voids 5 # Bowel Movements 4 Physical Exam Physical Exam She is sitting at edge of bed and using oxygen by nasal canula and she does not seem to be in any significant distress at this time. Assessment Assessment Problems Medical Problems: (1) Acute and chronic respiratory failure (vfobh-ku-[id number]) Status: Acute (2) Anxiety Status: Acute (3) Hyperglycemia Status: Acute (4) Renal failure Status: Acute Plan Plan of Care Physical and occupational therapy to see her today. Comment Review of Relevant I have reviewed the following items kylee (where applicable) has been applied. Labs Laboratory Tests Test 01/23/19 11:05 01/23/19 16:10 01/23/19 19:05 01/23/19 20:51 Glucose (Fingerstick) 136 mg/dL (70-99) 202 mg/dL (70-99) 267 mg/dL (70-99) Magnesium Level 1.4 mg/dL (1.8-2.4) Test 01/24/19 07:23 01/24/19 10:42 01/24/19 11:55 01/24/19 16:26 Glucose (Fingerstick) 173 mg/dL (70-99) 176 mg/dL (70-99) 114 mg/dL (70-99) 186 mg/dL (70-99) Test 01/24/19 19:46 01/25/19 05:10 01/25/19 07:36 Glucose (Fingerstick) 163 mg/dL (70-99) 269 mg/dL (70-99) Sodium Level 141 mmol/L (136-145) Potassium Level 6.0 mmol/L (3.5-5.1) Chloride Level 103 mmol/L (98-107) Carbon Dioxide Level 33 mmol/L (21-32) Anion Gap 5 (6-14) Blood Urea Nitrogen 40 mg/dL (7-20) Creatinine 2.0 mg/dL (0.6-1.0) Estimated GFR (Cockcroft-Gault) 25.4 Glucose Level 282 mg/dL (70-99) Calcium Level 7.5 mg/dL (8.5-10.1) Phosphorus Level 2.9 mg/dL (2.6-4.7) Albumin 3.1 g/dL (3.4-5.0) Laboratory Tests Test 01/24/19 10:42 01/24/19 11:55 01/24/19 16:26 01/24/19 19:46 Glucose (Fingerstick) 176 mg/dL (70-99) 114 mg/dL (70-99) 186 mg/dL (70-99) 163 mg/dL (70-99) Test 01/25/19 05:10 01/25/19 07:36 Sodium Level 141 mmol/L (136-145) Potassium Level 6.0 mmol/L (3.5-5.1) Chloride Level 103 mmol/L (98-107) Carbon Dioxide Level 33 mmol/L (21-32) Anion Gap 5 (6-14) Blood Urea Nitrogen 40 mg/dL (7-20) Creatinine 2.0 mg/dL (0.6-1.0) Estimated GFR (Cockcroft-Gault) 25.4 Glucose Level 282 mg/dL (70-99) Calcium Level 7.5 mg/dL (8.5-10.1) Phosphorus Level 2.9 mg/dL (2.6-4.7) Albumin 3.1 g/dL (3.4-5.0) Glucose (Fingerstick) 269 mg/dL (70-99) Microbiology 01/23/19 Blood Culture - Preliminary, Resulted NO GROWTH AFTER 2 DAYS Medications Current Medications Albuterol/ Ipratropium (Duoneb) 3 ml 1X ONCE NEB Last administered on at 08:04; Start 01/23/19 at 08:00; Stop 01/23/19 at 08:03; Status DC Methylprednisolone Sodium Succinate (SOLU-Medrol 125MG VIAL) 125 mg 1X ONCE IV Last administered on 01/23/19at 08:25; Start 01/23/19 at 08:00; Stop 01/23/19 at 08:03; Status DC Oxycodone/ Acetaminophen (Percocet 5/325) 1 tab 1X ONCE PO Last administered on 01/23/19 09:01; Start 01/23/19 at 09:00; Stop 01/23/19 at 09:01; Status DC Ceftriaxone Sodium (Rocephin) 1 gm 1X ONCE IVP Last administered on 01/23/19 09:00; Start 01/23/19 at 09:00; Stop 01/23/19 at 09:01; Status DC Magnesium Sulfate 50 ml @ 25 mls/hr 1X ONCE IV Last administered on 01/23/19 15:06; Start 01/23/19 at 09:15; Stop 01/23/19 at 11:14; Status DC Sodium Chloride 1,000 ml @ 1,000 mls/hr 1X ONCE IV Last administered on 15:07; Start 01/23/19 at 09:15; Stop 01/23/19 at 10:14; Status DC Vancomycin HCl 2 gm/Sodium Chloride 500 ml @ 250 mls/hr 1X ONCE IV Last administered on 01/23/19 09:52; Start 01/23/19 at 09:30; Stop 01/23/19 at 11:29; Status DC Sodium Chloride 1,000 ml @ 150 mls/hr Q6H40M IV Last administered on 06:30; Start 01/23/19 at 09:30; Stop 01/24/19 at 09:29; Status DC Aspirin (Children'S Aspirin) 81 mg DAILY PO Last administered on 01/25/19 08: 52; Start 01/23/19 at 11:00 Bupropion HCl (Wellbutrin Sr) 150 mg BID PO Last administered on 01/25/19 08: 51; Start 01/23/19 at 11:00 Carvedilol (Coreg) 6.25 mg BIDWMEALS PO Last administered on 01/25/19 08:51; Start 01/23/19 at 11:00 Furosemide (Lasix) 40 mg DAILY PO Last administered on 01/25/19 08:52; Start 01/23/19 at 11:00 Nystatin (Nystop) 1 omid PRN BID PRN TP Yeast infection; Start 01/23/19 at 09:30 Potassium Chloride (Klor-Con) 40 meq DAILY PO Last administered on 01/24/19 08 :51; Start 01/23/19 at 11:00 Senna/Docusate Sodium (Senna Plus) 1 tab BID PO Last administered on 01/25/19 08:51; Start 01/23/19 at 11:00 Insulin Human Lispro (HumaLOG) 10 units TIDWMEALS SQ Last administered on 09:05; Start 01/23/19 at 12:00 Insulin Glargine (Lantus) 18 units QHS SQ Last administered on 01/24/19 20:20 ; Start 01/23/19 at 21:00 Lidocaine (Lidoderm) 1 patch QHS TD ; Start 01/23/19 at 21:00; Stop 01/23/19 at 21 :00; Status DC Montelukast Sodium (Singulair) 10 mg QHS PO Last administered on 01/24/19 20: 14; Start 01/23/19 at 21:00 Spironolactone (Aldactone) 25 mg DAILY PO Last administered on 01/24/19 08:51 ; Start 01/23/19 at 11:00 Topiramate (Topamax) 25 mg QHS PO Last administered on 01/24/19 20:15; Start 01/23/19 at 21:00 Non-Formulary Medication ([Aspirin] ) 325 mg DAILYWBKFT PO ; Start 01/24/19 at 08:00; Status UNV Pantoprazole Sodium (Protonix) 40 mg DAILYAC PO Last administered on 01/25/19 08:52; Start 01/23/19 at 11:00 Non-Formulary Medication (Ipratropium/ Albuterol Sulfate (Combivent Respimat Inhal)) 2 inh QID IH ; Start 01/23/19 at 13:00; Status UNV Albuterol/ Ipratropium (Duoneb) 3 ml RTQID NEB Last administered on 01/25/19 06:05; Start 01/23/19 at 12:00 Insulin Human Lispro (HumaLOG) 0-5 UNITS TIDWMEALS SQ Last administered on 01/25 09:06; Start 01/23/19 at 12:00 Dextrose (Dextrose 50%-Water Syringe) 12.5 gm PRN Q15MIN PRN IV SEE COMMENTS; Start 01/23/19 at 10:15 Lidocaine/Sodium Bicarbonate (Buffered Lidocaine 1%) 3 ml STK-MED ONCE .ROUTE ; Start 01/23/19 at 13:44; Stop 01/23/19 at 13:45; Status DC Lidocaine/Sodium Bicarbonate (Buffered Lidocaine 1%) 3 ml 1X ONCE INJ Last administered on 01/23/19 14:01; Start 01/23/19 at 14:00; Stop 01/23/19 at 14:01; Status DC Lidocaine (Lidoderm) 1 patch DAILY TD Last administered on 01/25/19 08:53; Start 01/23/19 at 18:00 Miscellaneous (Lidoderm Patch Removal) 1 ea QHS MC Last administered on 20:54; Start 01/23/19 at 21:00 Oxycodone/ Acetaminophen (Percocet 5/325) 1 tab PRN Q6HRS PRN PO PAIN Last administered on 01/23/19 23:17; Start 01/23/19 at 22:45 Quetiapine Fumarate (SEROquel) 25 mg QHS PO ; Start 01/24/19 at 21:00; Stop 08/04 at 21:00; Status DC Quetiapine Fumarate (SEROquel) 25 mg QHS PO Last administered on 01/24/19 20: 14; Start 01/23/19 at 23:00 Enoxaparin Sodium (Lovenox 60mg Syringe) 60 mg Q12HR SQ Last administered on 08:52; Start 01/24/19 at 11:30 Magnesium Sulfate 50 ml @ 25 mls/hr 1X ONCE IV Last administered on 01/24/19at 17:05; Start 01/24/19 at 16:00; Stop 01/24/19 at 17:59; Status DC Ceftriaxone Sodium (Rocephin) 1 gm Q24H IVP Last administered on 01/24/19 17: 00; Start 01/24/19 at 16:00 Methylprednisolone Sodium Succinate (SOLU-Medrol 40MG VIAL) 80 mg Q8HRS IV Last administered on 01/25/19 05:04; Start 01/24/19 at 17:00 Ibuprofen (Motrin) 600 mg PRN Q8HRS PRN PO INFLAMMATION Last administered on 09/04at 09:12; Start 01/24/19 at 23:15 Cyclobenzaprine HCl (Flexeril) 10 mg PRN Q12HR PRN PO MUSCLE SPASMS Last administered on 01/25/19at 09:12; Start 01/24/19 at 23:15 Active Scripts Active Lidocaine 1 Each Adh..patch 1 Patch TD QHS 30 Days Senna-Time S Tablet (Sennosides/Docusate Sodium) 1 Each Tablet 1 Tab PO BID 14 Days Levemir Flextouch (Insulin Detemir) 100 Unit/1 Ml Insuln.pen 18 Units SQ QHS Novolog Flexpen (Insulin Aspart) 100 Unit/1 Ml Insuln.pen 10 Units SQ TIDAC Topamax (Topiramate) 25 Mg Tablet 25 Mg PO HS Combivent Respimat Inhal (Ipratropium/Albuterol Sulfate) 4 Gm Aer.w.adap 2 Inh IH QID Lasix (Furosemide) 40 Mg Tablet 1 Tab PO DAILY Aldactone (Spironolactone) 25 Mg Tablet 25 Mg PO DAILY Klor-Con M20 (Potassium Chloride) 20 Meq Tablet.er 40 Meq PO DAILY Nystop (Nystatin) 1 Omid Omid 1 Omid TP BID PRN [Aspirin] 325 MG Tablet. 325 Mg PO DAILYWBKFT Reported Wellbutrin Sr (Bupropion Hcl) 150 Mg Tablet.er 1 Tab PO BID Aspirin 81 Mg Tab.chew 1 Tab PO DAILY Montelukast Sodium Tablet (Montelukast Sodium) 10 Mg Tablet 10 Mg PO HS Carvedilol (Carvedilol) 6.25 Mg Tablet 6.25 Mg PO BIDWMEALS Pantoprazole Sodium 40 Mg Tablet. 40 Mg PO DAILY Vitals/I & O Vital Sign - Last 24 Hours 01/24/19 01/24/19 01/24/19 01/24/19 11:00 11:43 15:00 16:04 Temp 98.1 98.0 98.1 98.0 Pulse 71 70 Resp 20 17 B/P (MAP) 128/45 (72) 145/67 (93) Pulse Ox 96 96 O2 Delivery Nasal Cannula Nasal Cannula Nasal Cannula Nasal Cannula O2 Flow Rate 3.0 2.0 3.0 2.0 01/24/19 01/24/19 01/24/19 01/24/19 16:58 19:00 19:44 20:00 Temp 97.9 97.9 Pulse 70 74 Resp 20 B/P (MAP) 145/67 166/65 (98) Pulse Ox 93 93 O2 Delivery Nasal Cannula Nasal Cannula Nasal Cannula O2 Flow Rate 3.0 3.0 3.0 01/24/19 01/25/19 01/25/19 01/25/19 23:00 03:00 06:05 07:25 Temp 97.9 98.0 97.9 97.9 98.0 97.9 Pulse 77 89 89 Resp 18 20 20 B/P (MAP) 163/63 (96) 177/94 (121) 149/49 (82) Pulse Ox 96 96 93 98 O2 Delivery Nasal Cannula Nasal Cannula Venturi Mask Nasal Cannula O2 Flow Rate 3.0 3.0 9.0 3.0 01/25/19 08:51 Pulse 89 B/P (MAP) 149/49 Intake and Output 01/24/19 01/24/19 01/25/19 15:00 23:00 07:00 Output Total 900 ml Balance -900 ml KIERA MOREIRA MD Jan 25, 2019 10:10
--- NOTE | 2019-01-25 10:25 | PDOC ---
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 There is moderate to severe narrowing of the left neural foramen. Laminectomy is apparent on the left side hyperkalemia CKD stage 3-4 MUKESH plan: buspar 10mg po bid no narcotics due to hypercapnea, SEVERE consult pulm IV ROCEPHIN, VANC in er, d/c vanc due to ckd bipap at night, pt refuses. on NC duoneb, QID insulin to lantus 15u qhs, aspart 5u tid, ssi cough meds dvt ppx PTOT abdominal binder when up consulted dr moreira IV STEROIDS, taper iv fluid support nephrology consult 42 min pt exam, chart review,> 50% of time with pt exam, chart review, pt care coordination AT HIGH RISK OF PULM ARREST, DUE TO BIPAP NONCOMPLIANCE PER MY CHART REVIEW Vitals Vitals Vital Signs Date Time Temp Pulse Resp B/P (MAP) Pulse Ox O2 Delivery O2 Flow Rate FiO2 01/25/19 08:51 89 149/49 01/25/19 07:25 97.9 20 98 Nasal Cannula 3.0 97.9 Physical Exam General: Alert, Oriented X3, Cooperative, mild distress, moderate distress Heart: Regular rate, Normal S1 Lungs: Wheezing, Other Abdomen: Normal bowel sounds, Soft, Other (very obese) Extremities: No clubbing, No cyanosis Skin: No breakdown, No significant lesion Labs LABS MRI study of the lumbar spine without contrast Clinical indications: Patient fell last night. Back pain. History of spinal stenosis. History of lumbar spine surgery in 2012. Comparison: None available. Findings: No compression fracture or marrow infiltrative process or discitis or anterolisthesis is seen. The conus medullaris ends at the T12 level and appears normal morphologically. Developmentally short pedicles are seen throughout the lumbar spine. This narrows the AP dimension of the spinal canal throughout the lumbar spine. No focal disc protrusion or spinal canal stenosis or neural foraminal narrowing is seen at T12-L1 and L1-L2. At L2-3, mild diffuse disc bulge and degenerative endplate spurring is seen. Moderate degenerative facet arthropathy and ligamentum flavum hypertrophy is seen. These findings combine to form a moderate to severe spinal canal stenosis worse on the right side with narrowing of the upper right lateral recess due to more prominent facet spurring. There is moderate narrowing of the right neural foramen and mild narrowing of the left neural foramen. At L3-4, mild degenerative endplate spurring and diffuse disc bulging is seen which extends into the inferior aspect of the neural foramina bilaterally. Mild facet arthropathy and ligamentum flavum hypertrophy is seen. These findings combine to form a severe spinal canal stenosis. There is narrowing of the upper lateral recesses bilaterally. There is mild narrowing of the neural foramina bilaterally. At L4-L5, mild degenerative endplate spurring and diffuse disc bulging is seen. Moderate facet arthropathy and ligamentum flavum hypertrophy is seen. These findings combine to form a moderate to severe spinal canal stenosis. However, there is a partial decompressive laminectomy and left-sided this level. There is moderate annular of the left neural foramen and mild narrowing of the right neural foramen. At L5-S1, mild denerative endplate spurring and diffuse disc bulging is seen extending into the inferior aspect of the left neural foramen. There is moderate to severe narrowing of the left neural foramen. Laminectomy is apparent on the left side. There is soft tissue thickening of the anterolateral aspect of the left side of the spinal canal which may be due to perineural and epidural fibrosis given the patient's history and the finding of apparent laminectomy on the left side. Postsurgical changes of the posterior annulus are seen on this as well. Otherwise no prominent focal disc protrusion is seen at this level. Mild facet arthropathy and ligamentum flavum hypertrophy is seen. There is a mild spinal canal stenosis at this level. There is a small intrathecal lipoma measuring 11 mm in length and 6 mm in greatest AP or transverse dimension. IMPRESSION: No acute compression fracture. Findings as discussed above. See discussion above for each level. DICTATED and SIGNED BY: HELEN BROWNE MD DATE: 01/22/17 9601 CC: KIERA MOREIRA MD; STEFFANY QUNITERO MD; KIRBY GIRON Jr, MD ~ Laboratory Tests Test 01/24/19 10:42 01/24/19 11:55 01/24/19 16:26 01/24/19 19:46 Glucose (Fingerstick) 176 mg/dL (70-99) 114 mg/dL (70-99) 186 mg/dL (70-99) 163 mg/dL (70-99) Test 01/25/19 05:10 01/25/19 07:36 Sodium Level 141 mmol/L (136-145) Potassium Level 6.0 mmol/L (3.5-5.1) Chloride Level 103 mmol/L (98-107) Carbon Dioxide Level 33 mmol/L (21-32) Anion Gap 5 (6-14) Blood Urea Nitrogen 40 mg/dL (7-20) Creatinine 2.0 mg/dL (0.6-1.0) Estimated GFR (Cockcroft-Gault) 25.4 Glucose Level 282 mg/dL (70-99) Calcium Level 7.5 mg/dL (8.5-10.1) Phosphorus Level 2.9 mg/dL (2.6-4.7) Albumin 3.1 g/dL (3.4-5.0) Glucose (Fingerstick) 269 mg/dL (70-99) Assessment and Plan Assessmemt and Plan Problems Medical Problems: (1) Acute and chronic respiratory failure ([id number]) Status: Acute (2) Anxiety Status: Acute (3) Hyperglycemia Status: Acute (4) Renal failure Status: Acute Comment Review of Relevant I have reviewed the following items kylee (where applicable) has been applied. Labs Laboratory Tests Test 01/23/19 11:05 01/23/19 16:10 01/23/19 19:05 01/23/19 20:51 Glucose (Fingerstick) 136 mg/dL (70-99) 202 mg/dL (70-99) 267 mg/dL (70-99) Magnesium Level 1.4 mg/dL (1.8-2.4) Test 01/24/19 07:23 01/24/19 10:42 01/24/19 11:55 01/24/19 16:26 Glucose (Fingerstick) 173 mg/dL (70-99) 176 mg/dL (70-99) 114 mg/dL (70-99) 186 mg/dL (70-99) Test 01/24/19 19:46 01/25/19 05:10 01/25/19 07:36 Glucose (Fingerstick) 163 mg/dL (70-99) 269 mg/dL (70-99) Sodium Level 141 mmol/L (136-145) Potassium Level 6.0 mmol/L (3.5-5.1) Chloride Level 103 mmol/L (98-107) Carbon Dioxide Level 33 mmol/L (21-32) Anion Gap 5 (6-14) Blood Urea Nitrogen 40 mg/dL (7-20) Creatinine 2.0 mg/dL (0.6-1.0) Estimated GFR (Cockcroft-Gault) 25.4 Glucose Level 282 mg/dL (70-99) Calcium Level 7.5 mg/dL (8.5-10.1) Phosphorus Level 2.9 mg/dL (2.6-4.7) Albumin 3.1 g/dL (3.4-5.0) Laboratory Tests Test 01/24/19 10:42 01/24/19 11:55 01/24/19 16:26 01/24/19 19:46 Glucose (Fingerstick) 176 mg/dL (70-99) 114 mg/dL (70-99) 186 mg/dL (70-99) 163 mg/dL (70-99) Test 01/25/19 05:10 01/25/19 07:36 Sodium Level 141 mmol/L (136-145) Potassium Level 6.0 mmol/L (3.5-5.1) Chloride Level 103 mmol/L (98-107) Carbon Dioxide Level 33 mmol/L (21-32) Anion Gap 5 (6-14) Blood Urea Nitrogen 40 mg/dL (7-20) Creatinine 2.0 mg/dL (0.6-1.0) Estimated GFR (Cockcroft-Gault) 25.4 Glucose Level 282 mg/dL (70-99) Calcium Level 7.5 mg/dL (8.5-10.1) Phosphorus Level 2.9 mg/dL (2.6-4.7) Albumin 3.1 g/dL (3.4-5.0) Glucose (Fingerstick) 269 mg/dL (70-99) Microbiology 01/23/19 Blood Culture - Preliminary, Resulted NO GROWTH AFTER 2 DAYS Medications Current Medications Albuterol/ Ipratropium (Duoneb) 3 ml 1X ONCE NEB Last administered on at 08:04; Start 01/23/19 at 08:00; Stop 01/23/19 at 08:03; Status DC Methylprednisolone Sodium Succinate (SOLU-Medrol 125MG VIAL) 125 mg 1X ONCE IV Last administered on 01/23/19at 08:25; Start 01/23/19 at 08:00; Stop 01/23/19 at 08:03; Status DC Oxycodone/ Acetaminophen (Percocet 5/325) 1 tab 1X ONCE PO Last administered on 01/23/19at 09:01; Start 01/23/19 at 09:00; Stop 01/23/19 at 09:01; Status DC Ceftriaxone Sodium (Rocephin) 1 gm 1X ONCE IVP Last administered on 01/23/19at 09:00; Start 01/23/19 at 09:00; Stop 01/23/19 at 09:01; Status DC Magnesium Sulfate 50 ml @ 25 mls/hr 1X ONCE IV Last administered on 01/23/19at 15:06; Start 01/23/19 at 09:15; Stop 01/23/19 at 11:14; Status DC Sodium Chloride 1,000 ml @ 1,000 mls/hr 1X ONCE IV Last administered on at 15:07; Start 01/23/19 at 09:15; Stop 01/23/19 at 10:14; Status DC Vancomycin HCl 2 gm/Sodium Chloride 500 ml @ 250 mls/hr 1X ONCE IV Last administered on 01/23/19at 09:52; Start 01/23/19 at 09:30; Stop 01/23/19 at 11:29; Status DC Sodium Chloride 1,000 ml @ 150 mls/hr Q6H40M IV Last administered on at 06:30; Start 01/23/19 at 09:30; Stop 01/24/19 at 09:29; Status DC Aspirin (Children'S Aspirin) 81 mg DAILY PO Last administered on 01/25/19at 08: 52; Start 01/23/19 at 11:00 Bupropion HCl (Wellbutrin Sr) 150 mg BID PO Last administered on 4/11/19at 08: 51; Start 01/23/19 at 11:00 Carvedilol (Coreg) 6.25 mg BIDWMEALS PO Last administered on 01/25/19 08:51; Start 01/23/19 at 11:00 Furosemide (Lasix) 40 mg DAILY PO Last administered on 01/25/19 08:52; Start 01/23/19 at 11:00 Nystatin (Nystop) 1 omid PRN BID PRN TP Yeast infection; Start 01/23/19 at 09:30 Potassium Chloride (Klor-Con) 40 meq DAILY PO Last administered on 01/24/19 08 :51; Start 01/23/19 at 11:00 Senna/Docusate Sodium (Senna Plus) 1 tab BID PO Last administered on 01/25/19 08:51; Start 01/23/19 at 11:00 Insulin Human Lispro (HumaLOG) 10 units TIDWMEALS SQ Last administered on 09:05; Start 01/23/19 at 12:00 Insulin Glargine (Lantus) 18 units QHS SQ Last administered on 01/24/19 20:20 ; Start 01/23/19 at 21:00 Lidocaine (Lidoderm) 1 patch QHS TD ; Start 01/23/19 at 21:00; Stop 01/23/19 at 21 :00; Status DC Montelukast Sodium (Singulair) 10 mg QHS PO Last administered on 01/24/19 20: 14; Start 01/23/19 at 21:00 Spironolactone (Aldactone) 25 mg DAILY PO Last administered on 01/24/19 08:51 ; Start 01/23/19 at 11:00 Topiramate (Topamax) 25 mg QHS PO Last administered on 01/24/19 20:15; Start 01/23/19 at 21:00 Non-Formulary Medication ([Aspirin] ) 325 mg DAILYWBKFT PO ; Start 01/24/19 at 08:00; Status UNV Pantoprazole Sodium (Protonix) 40 mg DAILYAC PO Last administered on 01/25/19 08:52; Start 01/23/19 at 11:00 Non-Formulary Medication (Ipratropium/ Albuterol Sulfate (Combivent Respimat Inhal)) 2 inh QID IH ; Start 01/23/19 at 13:00; Status UNV Albuterol/ Ipratropium (Duoneb) 3 ml RTQID NEB Last administered on 01/25/19at 06:05; Start 01/23/19 at 12:00 Insulin Human Lispro (HumaLOG) 0-5 UNITS TIDWMEALS SQ Last administered on 01/25at 09:06; Start 01/23/19 at 12:00 Dextrose (Dextrose 50%-Water Syringe) 12.5 gm PRN Q15MIN PRN IV SEE COMMENTS; Start 01/23/19 at 10:15 Lidocaine/Sodium Bicarbonate (Buffered Lidocaine 1%) 3 ml STK-MED ONCE .ROUTE ; Start 01/23/19 at 13:44; Stop 01/23/19 at 13:45; Status DC Lidocaine/Sodium Bicarbonate (Buffered Lidocaine 1%) 3 ml 1X ONCE INJ Last administered on 01/23/19at 14:01; Start 01/23/19 at 14:00; Stop 01/23/19 at 14:01; Status DC Lidocaine (Lidoderm) 1 patch DAILY TD Last administered on 01/25/19 08:53; Start 01/23/19 at 18:00 Miscellaneous (Lidoderm Patch Removal) 1 ea QHS MC Last administered on at 20:54; Start 01/23/19 at 21:00 Oxycodone/ Acetaminophen (Percocet 5/325) 1 tab PRN Q6HRS PRN PO PAIN Last administered on 01/23/19 23:17; Start 01/23/19 at 22:45 Quetiapine Fumarate (SEROquel) 25 mg QHS PO ; Start 01/24/19 at 21:00; Stop 08/04 at 21:00; Status DC Quetiapine Fumarate (SEROquel) 25 mg QHS PO Last administered on 01/24/19at 20: 14; Start 01/23/19 at 23:00 Enoxaparin Sodium (Lovenox 60mg Syringe) 60 mg Q12HR SQ Last administered on 08:52; Start 01/24/19 at 11:30 Magnesium Sulfate 50 ml @ 25 mls/hr 1X ONCE IV Last administered on 01/24/19at 17:05; Start 01/24/19 at 16:00; Stop 01/24/19 at 17:59; Status DC Ceftriaxone Sodium (Rocephin) 1 gm Q24H IVP Last administered on 01/24/19at 17: 00; Start 01/24/19 at 16:00 Methylprednisolone Sodium Succinate (SOLU-Medrol 40MG VIAL) 80 mg Q8HRS IV Last administered on 01/25/19at 05:04; Start 01/24/19 at 17:00 Ibuprofen (Motrin) 600 mg PRN Q8HRS PRN PO INFLAMMATION Last administered on 09/04at 09:12; Start 01/24/19 at 23:15 Cyclobenzaprine HCl (Flexeril) 10 mg PRN Q12HR PRN PO MUSCLE SPASMS Last administered on 01/25/19 09:12; Start 01/24/19 at 23:15 Active Scripts Active Lidocaine 1 Each Adh..patch 1 Patch TD QHS 30 Days Senna-Time S Tablet (Sennosides/Docusate Sodium) 1 Each Tablet 1 Tab PO BID 14 Days Levemir Flextouch (Insulin Detemir) 100 Unit/1 Ml Insuln.pen 18 Units SQ QHS Novolog Flexpen (Insulin Aspart) 100 Unit/1 Ml Insuln.pen 10 Units SQ TIDAC Topamax (Topiramate) 25 Mg Tablet 25 Mg PO HS Combivent Respimat Inhal (Ipratropium/Albuterol Sulfate) 4 Gm Aer.w.adap 2 Inh IH QID Lasix (Furosemide) 40 Mg Tablet 1 Tab PO DAILY Aldactone (Spironolactone) 25 Mg Tablet 25 Mg PO DAILY Klor-Con M20 (Potassium Chloride) 20 Meq Tablet.er 40 Meq PO DAILY Nystop (Nystatin) 1 Omid Omid 1 Omid TP BID PRN [Aspirin] 325 MG Tablet. 325 Mg PO DAILYWBKFT Reported Wellbutrin Sr (Bupropion Hcl) 150 Mg Tablet.er 1 Tab PO BID Aspirin 81 Mg Tab.chew 1 Tab PO DAILY Montelukast Sodium Tablet (Montelukast Sodium) 10 Mg Tablet 10 Mg PO HS Carvedilol (Carvedilol) 6.25 Mg Tablet 6.25 Mg PO BIDWMEALS Pantoprazole Sodium 40 Mg Tablet.dr 40 Mg PO DAILY Vitals/I & O Vital Sign - Last 24 Hours 01/24/19 01/24/19 01/24/19 01/24/19 11:00 11:43 15:00 16:04 Temp 98.1 98.0 98.1 98.0 Pulse 71 70 Resp 20 17 B/P (MAP) 128/45 (72) 145/67 (93) Pulse Ox 96 96 O2 Delivery Nasal Cannula Nasal Cannula Nasal Cannula Nasal Cannula O2 Flow Rate 3.0 2.0 3.0 2.0 01/24/19 01/24/19 01/24/19 01/24/19 16:58 19:00 19:44 20:00 Temp 97.9 97.9 Pulse 70 74 Resp 20 B/P (MAP) 145/67 166/65 (98) Pulse Ox 93 93 O2 Delivery Nasal Cannula Nasal Cannula Nasal Cannula O2 Flow Rate 3.0 3.0 3.0 01/24/19 01/25/19 01/25/19 01/25/19 23:00 03:00 06:05 07:25 Temp 97.9 98.0 97.9 97.9 98.0 97.9 Pulse 77 89 89 Resp 18 20 20 B/P (MAP) 163/63 (96) 177/94 (121) 149/49 (82) Pulse Ox 96 96 93 98 O2 Delivery Nasal Cannula Nasal Cannula Venturi Mask Nasal Cannula O2 Flow Rate 3.0 3.0 9.0 3.0 01/25/19 08:51 Pulse 89 B/P (MAP) 149/49 Intake and Output 01/24/19 01/24/19 01/25/19 14:59 22:59 06:59 Output Total 900 ml Balance -900 ml ACE ZELAYA MD Jan 25, 2019 10:25
[2019-01-25 11:00] VITALS: BP 169/60
[2019-01-25] MEDS ORDERED: SODIUM POLYSTYRENE SULFONATE 15 GM/60 ML ORAL.SUSP. PO ONE ×2 (11:00→14:30)
[2019-01-25] MEDS: busPIRone 10 MG TABLET. PO SCH ×2 (11:19→21:03)
--- NOTE | 2019-01-25 12:05 | PDOC ---
Provider Note Provider Note [id number] acute on chronic resp fail ae of copd acute diastolic chf prob christ see orders DEBBIE SEGUNDO MD Jan 25, 2019 12:05
--- NOTE | 2019-01-25 12:23 | PDOC ---
SUBJECTIVE ROS States I am not feeling well"getting anxiety attack and want my pain meds" OBJECTIVE Vital Signs Vital Signs Date Time Temp Pulse Resp B/P (MAP) Pulse Ox O2 Delivery O2 Flow Rate FiO2 01/25/19 11:36 97 Venturi Mask 9.0 01/25/19 11:00 97.5 82 22 169/60 (96) 97.5 I & 0 Intake and Output 01/25/19 07:00 Output Total 900 ml Balance -900 ml Output Urine Total 900 ml # Voids 5 # Bowel Movements 4 PHYSICAL EXAM Physical Exam General: NAD, Morbidly obese HEENT: OM moist, O2 by [facility]) NECK Thick, Supple Heart: RRR LUNGS CTA,Non labored ABD- Obese Extremities: Edema + 2-3 Neuro: Normal speech, Cranial nerves 3-12 NL No Arnett DIAGNOSIS/ASSESSMENT Assessment & Plan MUKESH - Vasomotor On Lasix, Aldactone at home Takes NSAID every day UA unremarkable Stable renal function Hyperkalemia- Was on K Supplementation and Aldactone Held both , Kayexalate CKD stage 3 - Baseline Creat from review of [facility] records 1.5 to 2.1 since 2013 Patient was seen last by Dr. Brown in 2017 , will Obtain records from Office COPD exacerbation with Hypoxia On [facility] Home O2 3 Lts JOSELYN Acute on chronic combined hypoxic and hx severe hypercapnic respiratory failure DM2 on insulin Morbid obesity, extreme COMMENT/RELEVANT DATA Meds Current Medications Medications (Trade) Dose Ordered Sig/Sunny Start Time Stop Time Status Last Admin Dose Admin Albuterol/ Ipratropium (Duoneb) 3 ml RTQID 01/23/19 12:00 01/25/19 11:35 3 ML Aspirin (Children'S Aspirin) 81 mg DAILY 01/23/19 11:00 01/25/19 08:52 81 MG Bupropion HCl (Wellbutrin Sr) 150 mg BID 01/23/19 11:00 01/25/19 08:51 150 MG Buspirone HCl (Buspar) 10 mg BID 01/25/19 11:00 01/25/19 11:19 10 MG Carvedilol (Coreg) 6.25 mg BIDWMEALS 01/23/19 11:00 01/25/19 08:51 6.25 MG Ceftriaxone Sodium (Rocephin) 1 gm Q24H 01/24/19 16:00 01/24/19 17:00 1 GM Cyclobenzaprine HCl (Flexeril) 10 mg PRN Q12HR PRN 01/24/19 23:15 01/25/19 09:12 10 MG Dextrose (Dextrose 50%-Water Syringe) 12.5 gm PRN Q15MIN PRN 01/23/19 10:15 Enoxaparin Sodium (Lovenox 60mg Syringe) 60 mg Q12HR 01/24/19 11:30 01/25/19 08:52 60 MG Furosemide (Lasix) 40 mg DAILY 01/23/19 11:00 01/25/19 08:52 40 MG Ibuprofen (Motrin) 600 mg PRN Q8HRS PRN 01/24/19 23:15 01/25/19 09:12 600 MG Insulin Glargine (Lantus) 18 units QHS 01/23/19 21:00 01/24/19 20:20 18 UNITS Insulin Human Lispro (HumaLOG) 0-5 UNITS TIDWMEALS 01/23/19 12:00 01/25/19 09:06 4 UNITS Lidocaine (Lidoderm) 1 patch DAILY 01/23/19 18:00 01/25/19 08:53 1 PATCH Lidocaine/Sodium Bicarbonate (Buffered Lidocaine 1%) 3 ml 1X ONCE 01/23/19 14:00 01/23/19 14:01 DC 01/23/19 14:01 3 ML Magnesium Sulfate 50 ml @ 25 mls/hr 1X ONCE 01/24/19 16:00 01/24/19 17:59 DC 01/24/19 17:05 25 MLS/HR Methylprednisolone Sodium Succinate (SOLU-Medrol 40MG VIAL) 40 mg Q8HRS 01/25/19 14:00 Methylprednisolone Sodium Succinate (SOLU-Medrol 125MG VIAL) 125 mg 1X ONCE 01/23/19 08:00 01/23/19 08:03 DC 01/23/19 08:25 125 MG Miscellaneous (Lidoderm Patch Removal) 1 ea QHS 01/23/19 21:00 01/23/19 20:54 1 EA Montelukast Sodium (Singulair) 10 mg QHS 01/23/19 21:00 01/24/19 20:14 10 MG Non-Formulary Medication (Ipratropium/ Albuterol Sulfate (Combivent Respimat Inhal)) 2 inh QID 01/23/19 13:00 UNV Non-Formulary Medication ([Aspirin] ) 325 mg DAILYWBKFT 01/24/19 08:00 UNV Nystatin (Nystop) 1 evelia PRN BID PRN 01/23/19 09:30 Oxycodone/ Acetaminophen (Percocet 5/325) 1 tab PRN Q6HRS PRN 01/23/19 22:45 01/23/19 23:17 1 TAB Pantoprazole Sodium (Protonix) 40 mg DAILYAC 01/23/19 11:00 01/25/19 08:52 40 MG Potassium Chloride (Klor-Con) 40 meq DAILY 01/23/19 11:00 01/24/19 08:51 40 MEQ Quetiapine Fumarate (SEROquel) 25 mg QHS 01/23/19 23:00 01/24/19 20:14 25 MG Senna/Docusate Sodium (Senna Plus) 1 tab BID 01/23/19 11:00 01/25/19 08:51 1 TAB Sodium Polystyrene Sulfonate (Kayexalate) 30 gm 1X ONCE 01/25/19 11:00 01/25/19 11:03 DC 01/25/19 11:19 30 GM Sodium Chloride 1,000 ml @ 150 mls/hr Q6H40M 01/23/19 09:30 01/24/19 09:29 DC 01/24/19 06:30 150 MLS/HR Spironolactone (Aldactone) 25 mg DAILY 01/23/19 11:00 01/24/19 08:51 25 MG Topiramate (Topamax) 25 mg QHS 01/23/19 21:00 01/24/19 20:15 25 MG Vancomycin HCl 2 gm/Sodium Chloride 500 ml @ 250 mls/hr 1X ONCE 01/23/19 09:30 01/23/19 11:29 DC 01/23/19 09:52 250 MLS/HR Lab Laboratory Tests Test 01/24/19 16:26 01/24/19 19:46 01/25/19 05:10 01/25/19 07:36 Glucose (Fingerstick) 186 mg/dL (70-99) 163 mg/dL (70-99) 269 mg/dL (70-99) Sodium Level 141 mmol/L (136-145) Potassium Level 6.0 mmol/L (3.5-5.1) Chloride Level 103 mmol/L (98-107) Carbon Dioxide Level 33 mmol/L (21-32) Anion Gap 5 (6-14) Blood Urea Nitrogen 40 mg/dL (7-20) Creatinine 2.0 mg/dL (0.6-1.0) Estimated GFR (Cockcroft-Gault) 25.4 Glucose Level 282 mg/dL (70-99) Calcium Level 7.5 mg/dL (8.5-10.1) Phosphorus Level 2.9 mg/dL (2.6-4.7) Albumin 3.1 g/dL (3.4-5.0) Test 01/25/19 11:34 Glucose (Fingerstick) 290 mg/dL (70-99) Results All relevant outside records, renal labs, imaging studies, telemetry/EKG's were reviewed. GRAY PÉREZ MD Jan 25, 2019 12:23
--- NOTE | 2019-01-25 12:26 | CONS ---
DATE OF CONSULTATION: 01/25/2019 I was asked to see this 58-year-old lady for acute on chronic respiratory failure. HISTORY OF PRESENT ILLNESS: She has a history of [id number] smoking, stopped smoking about a year ago. She is on oxygen at 3 liters per minute via nasal cannula continuously. She presented to the Emergency Room for increased lower extremity edema, increased shortness of breath and pain all over. She has had occasional cough and occasional runny nose. She denies fever or chills. PAST MEDICAL HISTORY: Chronic respiratory failure, COPD, diabetes mellitus, gastroesophageal reflux disease. ALLERGIES: FISH-CONTAINING PRODUCTS, PENICILLIN, SULFA, CODEINE, MORPHINE. MEDICATIONS: Currently she is on DuoNeb, Solu-Medrol 80 mg IV every 8 hours, Flexeril, ibuprofen, Rocephin, Lovenox, Topamax, Singulair, insulin, Protonix, KCl, Lasix, aspirin. SOCIAL HISTORY: History of [id number] smoking, quit smoking a year ago. FAMILY HISTORY: Hypertension. REVIEW OF SYSTEMS: As mentioned as above, she does have snoring and excessive daytime sleepiness, has not had a sleep study. Other systems are otherwise negative. PHYSICAL EXAMINATION: GENERAL: This is an obese lady. VITAL SIGNS: Her O2 saturation on 9 liters of oxygen is 97%, respiratory rate 18, heart rate 89, blood pressure 149/49, temperature 97.9. HEENT: Normocephalic, atraumatic. Pupils equal, round, reactive to light. Shallow oropharynx. Nose is clear. NECK: Positive JVD. No lymphadenopathy or thyromegaly. CARDIOVASCULAR: Regular rate and rhythm. PMI is nondisplaced. CHEST: Inspection is normal. LUNGS: There are bibasilar crackles. There is no wheezing. ABDOMEN: Soft. Bowel sounds are good. There is no mass. EXTREMITIES: There is 2-3+ edema. LYMPHATICS: There is no lymphadenopathy. NEUROLOGIC: Alert and oriented. SKIN: Chronic changes. LABORATORY DATA: I reviewed the following lab data: Chest x-ray does not show infiltrate. WBC 4.6, hemoglobin 9.3, platelets 100. ABG, pH 7.37, pCO2 of 53, pO2 of 115. Sodium 141, potassium 6, chloride 103, CO2 of 33, BUN 40, creatinine 2. BNP 970. Troponin less than 0.01. Lactic acid 2.7. IMPRESSION: 1. Acute on chronic respiratory failure, multifactorial in etiology including acute exacerbation of chronic obstructive pulmonary disease, acute diastolic congestive heart failure, ?acute bronchitis versus others. 2. ?Sepsis. 3. Acute exacerbation of chronic obstructive pulmonary disease. 4. Acute diastolic congestive heart failure. 5. Obesity. 6. Excessive daytime sleepiness and snoring, probable obstructive sleep apnea-hypopnea syndrome. 7. Acute kidney injury, chronic kidney disease. 8. Diabetes mellitus. 9. Gastroesophageal reflux disease. 10. Ex-smoker. PLAN AND RECOMMENDATIONS: 1. Titrate FiO2 to keep O2 saturation 90-91%. 2. Continue bronchodilator. 3. I will decrease Solu-Medrol to 40 mg IV every 8 hours. 4. Continue Singulair. 5. Continue antibiotic. 6. Lovenox for DVT prophylaxis. 7. Lower extremity venous Doppler. 8. Protonix for stress ulcer prophylaxis. 9. Communications Designer consulted. 10. Echocardiogram. 11. I do recommend a sleep study as an outpatient if not done. 12. The findings and recommendations were discussed with the patient and her . They understood and agreed to proceed with the plan. I have answered all of their questions. Thank you very much for allowing me to participate in care of this very nice lady. DBEBIE SEGUNDO M.D. : Med JOB#: [id number] / [id number]
--- NOTE | 2019-01-25 13:00 | NUR ---
Patient's potassium was 6.0, paged Dr. Shook at 1020, received orders to give kayexylate PO. This nurse also did not administer, potassium chloride and aldactone. Dr. Garces also updated upon her rounds with the patient.
[2019-01-25 15:00] VITALS: BP 181/72
--- NOTE | 2019-01-25 15:19 | CARD ---
MR#: [id number] Date of Study: 01/25/2019 Ordering Physician: DEBBIE SEGUNDO, Referring Physician: ACE ZELAYA Tech: Laney Pardo RDCS APPROVED REPORT EXAM: Two-dimensional and M-mode echocardiogram with Doppler and color Doppler. Other Information Quality : Fair INDICATION Dyspnea 2D DIMENSIONS RVDd2.9 (2.9-3.5cm)Left Atrium(2D)4.0 (1.6-4.0cm) IVSd0.9 (0.7-1.1cm)Aortic Root(2D)2.7 (2.0-3.7cm) LVDd6.0 (3.9-5.9cm)LVOT Diameter2.0 (1.8-2.4cm) PWd0.8 (0.7-1.1cm)LVDs4.2 (2.5-4.0cm) FS (%) 29.6 %SV100.6 ml LVEF(%)55.8 (>50%) Aortic Valve AoV Peak Denny.157.7cm/sAoV VTI32.9cm AO Peak GR.9.9mmHgLVOT Peak Denny.103.4cm/s LVOT VTI 24.28cmAO Mean GR.5mmHg NICOLLE (VMAX)2.20tv4ZCM (VTI)2.29cm2 Mitral Valve MV E Ysluvorj872.6cm/sMV DECEL SLBK357od MV A Yagajjbc422.9cm/sMV YFB87rz E/A Ratio0.9MVA (PHT)2.41cm2 TDI E/Lateral E'13.9E/Medial E'19.5 Tricuspid Valve TR P. Ypcngnjy758cf/sRAP ZNHFMJKQ7klSp TR Peak Gr.30buJaXBPO19vsIp Pulmonary Vein S1 Kahfriqu90.2cm/sD2 Wjrmokej592.3cm/s LEFT VENTRICLE The left ventricle is normal size. There is normal left ventricular wall thickness. The left ventricu lar systolic function is normal. The Ejection Fraction is 55-60%. There is normal LV segmental wall m otion. Transmitral Doppler flow pattern is Grade I-abnormal relaxation pattern. RIGHT VENTRICLE The right ventricle is normal size. The right ventricular systolic function is normal. ATRIA The left atrium is mildly dilated. The right atrium size is normal. The interatrial septum is intact with no evidence for an atrial septal defect or patent foramen ovale as noted on 2-D or Doppler imagi ng. AORTIC VALVE The aortic valve is not well visualized but appears to be functioning normally by Doppler interrogati on. Doppler and Color Flow revealed no significant aortic regurgitation. There is no significant aort ic valvular stenosis. MITRAL VALVE The mitral valve is calcified but opens well. There is no evidence of mitral valve prolapse. There is no mitral valve stenosis. Doppler and Color-flow revealed mild mitral regurgitation. TRICUSPID VALVE The tricuspid valve is normal in structure and function. Doppler and Color Flow revealed mild tricusp id regurgitation. There is moderate pulmonary hypertension. The PA pressure was estimated at 45 mmHg. There is no tricuspid valve stenosis. PULMONIC VALVE The pulmonic valve is not well visualized. Doppler and Color Flow revealed no pulmonic valvular regur gitation. There is no pulmonic valvular stenosis. GREAT VESSELS The aortic root is normal in size. The ascending aorta is normal in size. The IVC is normal in size a nd collapses >50% with inspiration. PERICARDIAL EFFUSION There is no evidence of significant pericardial effusion. Critical Notification Critical Value: No <Conclusion> The left ventricular systolic function is normal. The Ejection Fraction is 55-60%. There is normal LV segmental wall motion. Mild mitral regurgitation. Mild tricuspid regurgitation. The PA pressure was estimated at 45 mmHg. There is no evidence of significant pericardial effusion. Signed by : Cornelius Jarvis, Electronically Approved : 01/25/2019 15:18:39
[2019-01-25] MEDS: cefTRIAXone IV Push 1 GM VIAL. IVP SCH (15:54)
--- NOTE | 2019-01-25 15:54 | CONS ---
DATE OF CONSULTATION: 01/24/2019 LOCATION: She is in room 662. ATTENDING PHYSICIAN: Dr. Shook. The patient was seen at the request of Dr. Shook for rehab evaluation. HISTORY OF PRESENT ILLNESS: This is a 58-year-old female known to me in the past. The patient with chronic lower back pain from lumbar spinal stenosis and had some problems with orthostatic hypotension after she had epidural steroid injections, so she is not interested in any injections. She was told by Dr. Lehman that she is not a candidate for any surgery, also with known morbid obesity, narcotic abuse, edema, anxiety, asthmatic bronchitis, bipolar disorder, fibromyalgia, bronchitis, chronic obstructive pulmonary disease, depression, diabetes mellitus with associated peripheral neuropathy, gastroesophageal reflux disease, hysterectomy, lumbar spine surgery, KNOWN ALLERGIC TO FISH CONTAINING PRODUCTS, PENICILLIN, SULFA, CODEINE, AND MORPHINE. Family history of obesity. She also had history of congestive heart failure, hypertension, chronic obstructive pulmonary disease, gastroesophageal reflux disease, depression, osteoarthritis, chronic renal insufficiency, urinary incontinence, status post tonsillectomy, hysterectomy. Family history also includes diabetes. She quit smoking. The patient lives with her , had stairs to manage from the front and back. She had a walker and wheelchair. The patient since admission being treated for acute and chronic respiratory failure, acute on chronic anxiety, hyperglycemia and renal failure, acute. The patient is asking for hydrocodone and Xanax, which she usually takes at home. PHYSICAL EXAMINATION: Today revealed a middle-aged female. She is alert, oriented to time, place, person and circumstance and follows commands appropriately, moves all 4 extremities voluntarily where she had 4+/5 grade muscle strength and deep tendon reflexes are decreased overall with absent knee and ankle jerks and she had equal perception of touch and pinprick sensation bilaterally. Tenderness to palpation over sacroiliac joint area and adjoining trochanteric bursa bilaterally and over right shoulder anterior aspect. She had pain free range of motion on both hip and knee joints. Straight leg raising test is negative bilaterally. She is independent with bed mobility and transfers. I have not tested her ambulation skills at this time. She had generalized edema, more so of her lower extremities. She is using oxygen by nasal cannula. ASSESSMENT: A middle-aged female with chronic obstructive pulmonary disease with recent exacerbation and acute on chronic respiratory failure, morbid obesity, chronic lower back pain from degenerative disk disease and degenerative joint disease of lumbar vertebrae with associated lumbar spinal stenosis, diabetes mellitus with peripheral neuropathy, acute renal failure, hyperglycemia, anxiety, congestive heart failure, hypertension, fibromyalgia. RECOMMENDATION: To try physical modalities and to ask physical therapy and occupational therapy to see her. To consider injecting painful sacroiliac joints and trochanteric bursa if she agrees. Dr. Shook, I appreciate asking me to participate in the care of this interesting patient. I will be glad to follow her with you as needed for her rehabilitation. KIERA MOREIRA MD DR: WHITNEY/millie JOB#: [id number] / [id number] DAVE Romero MD
[2019-01-25] MEDS: hydrALAZINE 20 MG/ML VIAL. IVP PRN (17:29)
[2019-01-25 19:00] VITALS: BP 155/58
[2019-01-25] MEDS: GABAPENTIN 100 MG CAPSULE. PO SCH ×2 (19:36→21:03)
[2019-01-25] MEDS: PATCH REMOVAL. MC SCH (19:54)
[2019-01-25] MEDS: TOPIRAMATE 25 MG TABLET. PO SCH (21:03)
[2019-01-25] MEDS: LACTOBACILLUS RHAMNOSUS GG 1 CAPSULE. PO SCH (21:03)
[2019-01-25] MEDS: QUEtiapine 25 MG TABLET. PO SCH (21:03)
[2019-01-25] MEDS: MONTELUKAST SODIUM 10 MG TABLET. PO SCH (21:03)
[2019-01-25] MEDS: INSULIN GLARGINE 300 UNITS/3 ML INSULN.PEN. SQ SCH (21:21)
[2019-01-25 23:00] VITALS: BP 139/52
[2019-01-26 03:00] VITALS: BP 174/85
[2019-01-26] MEDS: methylPREDNISolone SOD SUCC PF 40 MG/ML VIAL. IV SCH ×2 (06:23→21:00)
--- NOTE | 2019-01-26 06:47 | PDOC ---
PULMONARY PROGRESS NOTES Subjective sob better, has cough, has pain all over Vitals Vital Signs Date Time Temp Pulse Resp B/P (MAP) Pulse Ox O2 Delivery O2 Flow Rate FiO2 01/26/19 03:00 97.4 80 22 174/85 (114) 99 Nasal Cannula 3.0 97.4 ROS: No Nausea General: Alert, No acute distress Lungs: Crackles, Other Cardiovascular: S1, S2 Abdomen: Soft, Non-tender Neuro Exam: Alert Extremities: Other (=edema) Skin: Warm Labs Laboratory Tests Test 01/24/19 07:23 01/24/19 10:42 01/24/19 11:55 01/24/19 16:26 Glucose (Fingerstick) 173 mg/dL (70-99) 176 mg/dL (70-99) 114 mg/dL (70-99) 186 mg/dL (70-99) Test 01/24/19 19:46 01/25/19 05:10 01/25/19 07:36 01/25/19 11:34 Glucose (Fingerstick) 163 mg/dL (70-99) 269 mg/dL (70-99) 290 mg/dL (70-99) Sodium Level 141 mmol/L (136-145) Potassium Level 6.0 mmol/L (3.5-5.1) Chloride Level 103 mmol/L (98-107) Carbon Dioxide Level 33 mmol/L (21-32) Anion Gap 5 (6-14) Blood Urea Nitrogen 40 mg/dL (7-20) Creatinine 2.0 mg/dL (0.6-1.0) Estimated GFR (Cockcroft-Gault) 25.4 Glucose Level 282 mg/dL (70-99) Calcium Level 7.5 mg/dL (8.5-10.1) Phosphorus Level 2.9 mg/dL (2.6-4.7) Albumin 3.1 g/dL (3.4-5.0) Test 01/25/19 16:52 01/25/19 17:50 01/25/19 21:11 Glucose (Fingerstick) 231 mg/dL (70-99) 240 mg/dL (70-99) Potassium Level 4.4 mmol/L (3.5-5.1) Laboratory Tests Test 01/25/19 07:36 01/25/19 11:34 01/25/19 16:52 01/25/19 17:50 Glucose (Fingerstick) 269 mg/dL (70-99) 290 mg/dL (70-99) 231 mg/dL (70-99) Potassium Level 4.4 mmol/L (3.5-5.1) Test 01/25/19 21:11 Glucose (Fingerstick) 240 mg/dL (70-99) Medications Active Scripts Medications Dose Route/Sig Max Daily Dose Days Date Category Lidocaine 1 Each Adh..patch 1 Patch TD QHS 30 08/23/18 Rx Senna-Time S Tablet (Sennosides/Docusate Sodium) 1 Each Tablet 1 Tab PO BID 14 08/23/18 Rx Levemir Flextouch (Insulin Detemir) 100 Unit/1 Ml Insuln.pen 18 Units SQ QHS 10/17/15 Rx Novolog Flexpen (Insulin Aspart) 100 Unit/1 Ml Insuln.pen 10 Units SQ TIDAC 10/17/15 Rx Topamax (Topiramate) 25 Mg Tablet 25 Mg PO HS 03/18/15 Rx Wellbutrin Sr (Bupropion Hcl) 150 Mg Tablet.er 1 Tab PO BID 03/11/15 Reported Aspirin 81 Mg Tab.chew 1 Tab PO DAILY 03/11/15 Reported Montelukast Sodium Tablet (Montelukast Sodium) 10 Mg Tablet 10 Mg PO HS 03/11/15 Reported Combivent Respimat Inhal (Ipratropium/Albuterol Sulfate) 4 Gm Aer.w.adap 2 Inh IH QID 11/28/14 Rx Lasix (Furosemide) 40 Mg Tablet 1 Tab PO DAILY 10/25/14 Rx Aldactone (Spironolactone) 25 Mg Tablet 25 Mg PO DAILY 10/25/14 Rx Klor-Con M20 (Potassium Chloride) 20 Meq Tablet.er 40 Meq PO DAILY 10/25/14 Rx Nystop (Nystatin) 1 Omid Omid 1 Omid TP BID PRN 10/25/14 Rx [Aspirin] 325 MG Tablet. 325 Mg PO DAILYWBKFT 10/25/14 Rx Carvedilol (Carvedilol) 6.25 Mg Tablet 6.25 Mg PO BIDWMEALS 10/22/14 Reported Pantoprazole Sodium 40 Mg Tablet. 40 Mg PO DAILY 10/22/14 Reported Comments echo reviewed The left ventricular systolic function is normal. The Ejection Fraction is 55-60%. There is normal LV segmental wall motion. Mild mitral regurgitation. Mild tricuspid regurgitation. The PA pressure was estimated at 45 mmHg. There is no evidence of significant pericardial effusion. Impression . IMPRESSION: 1. Acute on chronic respiratory failure, multifactorial in etiology including acute exacerbation of chronic obstructive pulmonary disease, acute diastolic congestive heart failure, ?acute bronchitis versus others. 2. ?Sepsis. 3. Acute exacerbation of chronic obstructive pulmonary disease. 4. Acute diastolic congestive heart failure. 5. Obesity. 6. Excessive daytime sleepiness and snoring, probable obstructive sleep apnea-hypopnea syndrome. 7. Acute kidney injury, chronic kidney disease. 8. Diabetes mellitus. 9. Gastroesophageal reflux disease. 10. Ex-smoker. Plan . PLAN AND RECOMMENDATIONS: 1. Titrate FiO2 to keep O2 saturation 90-91%. 2. Continue bronchodilator. 3. change Solu-Medrol to 40 mg IV every 12 hours. 4. Continue Singulair. 5. Continue antibiotic. 6. Lovenox for DVT prophylaxis. 7. fu Lower extremity venous Doppler. 8. Protonix for stress ulcer prophylaxis. 9. Director Advertising consulted. 10. Echocardiogram reviewed. 11. I do recommend a sleep study as an outpatient if not done. discussed w DEBBIE Modi MD Jan 26, 2019 06:47
[2019-01-26 07:32] LABS: BASO % 0 % (0-3); EOS % 0 % (0-3); HEMATOCRIT 28.7 % (36.0-47.0); HEMOGLOBIN 9.2 g/dL (12.0-15.5); LYMPH # 0.8 x10^3/uL (1.0-4.8); LYMPH % 13 % (24-48); MEAN CORPUSCULAR HEMOGLOBIN 28 pg (25-35); MEAN CORPUSCULAR HGB CONC 32 g/dL (31-37); MEAN CORPUSCULAR VOLUME 88 fL (79-100); MONO # 0.3 x10^3/uL (0.0-1.1); MONO % 5 % (0-9); NEUT # 5.3 x10^3uL (1.8-7.7); NEUT % 82 % (31-73); PLATELET COUNT 132 x10^3/uL (140-400); RED BLOOD COUNT 3.25 x10^6/uL (3.50-5.40); WHITE BLOOD COUNT 6.4 x10^3/uL (4.0-11.0)
[2019-01-26 07:33] LABS: ALBUMIN 2.9 g/dL (3.4-5.0); CALCIUM 7.4 mg/dL (8.5-10.1); CREATININE 1.8 mg/dL (0.6-1.0); GFR 28.7; POTASSIUM 4.4 mmol/L (3.5-5.1)
[2019-01-26 07:34] LABS: PHOSPHORUS 3.2 mg/dL (2.6-4.7)
[2019-01-26 07:50] VITALS: BP 164/97
[2019-01-26] MEDS: FUROSEMIDE 40 MG TABLET. PO SCH (08:11)
[2019-01-26] MEDS: LACTOBACILLUS RHAMNOSUS GG 1 CAPSULE. PO SCH ×2 (08:12→20:55)
[2019-01-26] MEDS: busPIRone 10 MG TABLET. PO SCH ×2 (08:12→20:55)
[2019-01-26] MEDS: CARVEDILOL 6.25 MG TABLET. PO SCH ×2 (08:12→16:47)
[2019-01-26] MEDS: PANTOPRAZOLE 40 MG TABLET.DR. PO SCH (08:12)
[2019-01-26] MEDS: LIDOCAINE (700MG/PATCH) PATCH. TD SCH (08:15)
[2019-01-26] MEDS: CYCLOBENZAPRINE 10 MG TABLET. PO PRN ×2 (08:15→16:48)
[2019-01-26] MEDS: GABAPENTIN 100 MG CAPSULE. PO SCH ×4 (08:15→20:55)
[2019-01-26] MEDS: IBUPROFEN 200 MG TABLET. PO PRN ×2 (08:16→16:48)
[2019-01-26] MEDS: ASPIRIN CHEWABLE 81 MG TABLET. PO SCH (08:16)
[2019-01-26] MEDS: buPROPion SR 150 MG TABLET.SA PO SCH ×2 (08:17→20:55)
[2019-01-26] MEDS: INSULIN LISPRO 300 UNITS/3 ML INSULN.PEN. SQ SCH ×6 (08:33→17:49)
[2019-01-26] MEDS: SENNOSIDES/DOCUSATE 8.6/50MG TABLET. PO SCH ×2 (09:00→21:00)
--- NOTE | 2019-01-26 09:52 | PDOC ---
OBJECTIVE Vital Signs Vital Signs Date Time Temp Pulse Resp B/P (MAP) Pulse Ox O2 Delivery O2 Flow Rate FiO2 01/26/19 08:12 80 164/97 01/26/19 07:50 98.1 20 98 Nasal Cannula 3.0 98.1 I & 0 Intake and Output 01/26/19 07:00 Intake Total 2000 ml Balance 2000 ml Intake Oral 2000 ml # Voids 5 # Bowel Movements 2 PHYSICAL EXAM Physical Exam General: NAD, Morbidly obese HEENT: OM moist, O2 by [facility]) NECK Thick, Supple Heart: RRR LUNGS CTA,Non labored ABD- Obese Extremities: Edema + 2-3 Neuro: Normal speech, Cranial nerves 3-12 NL No Arnett DIAGNOSIS/ASSESSMENT Assessment & Plan MUKESH - Vasomotor On Lasix, Aldactone at home Takes NSAID every day Ibuprofen listed in her med list as inpatient ,Recommend against NSAID's Pt insists that she will take NSAID's and she doesn't care if she ends up on HD as she cannot tolerate her pain UA unremarkable Stable renal function Hyperkalemia- Was on K Supplementation and Aldactone Ibuprofen listed as prn , Pt adamant she wants to continue to take it Held both , Kayexalate K Normal today CKD stage 3 - Baseline Creat from review of PMC records 1.5 to 2.1 since 2013 Patient was seen last by Dr. 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 DM2 on insulin Morbid obesity, extreme Schedule Follow up with Nephrology in 2-3 months post discharge COMMENT/RELEVANT DATA Meds Current Medications Medications (Trade) Dose Ordered Sig/Sunny Start Time Stop Time Status Last Admin Dose Admin Albuterol/ Ipratropium (Duoneb) 3 ml RTQID 01/23/19 12:00 01/25/19 19:48 3 ML Aspirin (Children'S Aspirin) 81 mg DAILY 01/23/19 11:00 01/26/19 08:16 81 MG Bupropion HCl (Wellbutrin Sr) 150 mg BID 01/23/19 11:00 01/26/19 08:17 150 MG Buspirone HCl (Buspar) 10 mg BID 01/25/19 11:00 01/26/19 08:12 10 MG Carvedilol (Coreg) 6.25 mg BIDWMEALS 01/23/19 11:00 01/26/19 08:12 6.25 MG Ceftriaxone Sodium (Rocephin) 1 gm Q24H 01/24/19 16:00 01/25/19 15:54 1 GM Cyclobenzaprine HCl (Flexeril) 10 mg PRN Q12HR PRN 01/24/19 23:15 01/26/19 08:15 10 MG Dextrose (Dextrose 50%-Water Syringe) 12.5 gm PRN Q15MIN PRN 01/23/19 10:15 Enoxaparin Sodium (Lovenox 60mg Syringe) 60 mg Q12HR 01/24/19 11:30 01/26/19 08:11 60 MG Furosemide (Lasix) 40 mg DAILY 01/23/19 11:00 01/26/19 08:11 40 MG Gabapentin (Neurontin) 200 mg QHS 01/25/19 21:00 01/25/19 21:03 200 MG Hydralazine HCl (Apresoline Inj) 10 mg PRN Q6HRS PRN 01/25/19 17:15 01/25/19 17:29 10 MG Ibuprofen (Motrin) 600 mg PRN Q8HRS PRN 01/24/19 23:15 01/26/19 08:16 600 MG Insulin Glargine (Lantus) 18 units QHS 01/23/19 21:00 01/25/19 21:21 18 UNITS Insulin Human Lispro (HumaLOG) 0-5 UNITS TIDWMEALS 01/23/19 12:00 01/26/19 08:35 4 UNITS Lactobacillus Rhamnosus (Culturelle) 1 cap BID 01/25/19 21:00 01/26/19 08:12 1 CAP Lidocaine (Lidoderm) 1 patch DAILY 01/23/19 18:00 01/26/19 08:15 1 PATCH Lidocaine/Sodium Bicarbonate (Buffered Lidocaine 1%) 3 ml 1X ONCE 01/23/19 14:00 01/23/19 14:01 DC 01/23/19 14:01 3 ML Magnesium Sulfate 50 ml @ 25 mls/hr 1X ONCE 01/24/19 16:00 01/24/19 17:59 DC 01/24/19 17:05 25 MLS/HR Methylprednisolone Sodium Succinate (SOLU-Medrol 40MG VIAL) 40 mg Q12HR 01/26/19 21:00 Methylprednisolone Sodium Succinate (SOLU-Medrol 125MG VIAL) 125 mg 1X ONCE 01/23/19 08:00 01/23/19 08:03 DC 01/23/19 08:25 125 MG Miscellaneous (Lidoderm Patch Removal) 1 ea QHS 01/23/19 21:00 01/23/19 20:54 1 EA Montelukast Sodium (Singulair) 10 mg QHS 01/23/19 21:00 01/25/19 21:03 10 MG Non-Formulary Medication (Ipratropium/ Albuterol Sulfate (Combivent Respimat Inhal)) 2 inh QID 01/23/19 13:00 UNV Non-Formulary Medication ([Aspirin] ) 325 mg DAILYWBKFT 01/24/19 08:00 UNV Nystatin (Nystop) 1 evelia PRN BID PRN 01/23/19 09:30 Oxycodone/ Acetaminophen (Percocet 5/325) 1 tab PRN Q6HRS PRN 01/23/19 22:45 01/23/19 23:17 1 TAB Pantoprazole Sodium (Protonix) 40 mg DAILYAC 01/23/19 11:00 01/26/19 08:12 40 MG Potassium Chloride (Klor-Con) 40 meq DAILY 01/23/19 11:00 01/25/19 14:17 DC 01/24/19 08:51 40 MEQ Quetiapine Fumarate (SEROquel) 25 mg QHS 01/23/19 23:00 01/25/19 21:03 25 MG Senna/Docusate Sodium (Senna Plus) 1 tab BID 01/23/19 11:00 01/25/19 08:51 1 TAB Sodium Polystyrene Sulfonate (Kayexalate) 30 gm 1X ONCE 01/25/19 14:30 01/25/19 14:31 DC Sodium Chloride 1,000 ml @ 150 mls/hr Q6H40M 01/23/19 09:30 01/24/19 09:29 DC 01/24/19 06:30 150 MLS/HR Spironolactone (Aldactone) 25 mg DAILY 01/23/19 11:00 01/25/19 14:18 DC 01/24/19 08:51 25 MG Topiramate (Topamax) 25 mg QHS 01/23/19 21:00 01/25/19 21:03 25 MG Vancomycin HCl 2 gm/Sodium Chloride 500 ml @ 250 mls/hr 1X ONCE 01/23/19 09:30 01/23/19 11:29 DC 01/23/19 09:52 250 MLS/HR Lab Laboratory Tests Test 01/25/19 11:34 01/25/19 16:52 01/25/19 17:50 01/25/19 21:11 Glucose (Fingerstick) 290 mg/dL (70-99) 231 mg/dL (70-99) 240 mg/dL (70-99) Potassium Level 4.4 mmol/L (3.5-5.1) Test 01/26/19 07:00 01/26/19 07:59 White Blood Count 6.4 x10^3/uL (4.0-11.0) Red Blood Count 3.25 x10^6/uL (3.50-5.40) Hemoglobin 9.2 g/dL (12.0-15.5) Hematocrit 28.7 % (36.0-47.0) Mean Corpuscular Volume 88 fL (79-100) Mean Corpuscular Hemoglobin 28 pg (25-35) Mean Corpuscular Hemoglobin Concent 32 g/dL (31-37) Red Cell Distribution Width 15.0 % (11.5-14.5) Platelet Count 132 x10^3/uL (140-400) Neutrophils (%) (Auto) 82 % (31-73) Lymphocytes (%) (Auto) 13 % (24-48) Monocytes (%) (Auto) 5 % (0-9) Eosinophils (%) (Auto) 0 % (0-3) Basophils (%) (Auto) 0 % (0-3) Neutrophils # (Auto) 5.3 x10^3uL (1.8-7.7) Lymphocytes # (Auto) 0.8 x10^3/uL (1.0-4.8) Monocytes # (Auto) 0.3 x10^3/uL (0.0-1.1) Eosinophils # (Auto) 0.0 x10^3/uL (0.0-0.7) Basophils # (Auto) 0.0 x10^3/uL (0.0-0.2) Sodium Level 140 mmol/L (136-145) Potassium Level 4.4 mmol/L (3.5-5.1) Chloride Level 104 mmol/L (98-107) Carbon Dioxide Level 32 mmol/L (21-32) Anion Gap 4 (6-14) Blood Urea Nitrogen 37 mg/dL (7-20) Creatinine 1.8 mg/dL (0.6-1.0) Estimated GFR (Cockcroft-Gault) 28.7 Glucose Level 275 mg/dL (70-99) Calcium Level 7.4 mg/dL (8.5-10.1) Phosphorus Level 3.2 mg/dL (2.6-4.7) Albumin 2.9 g/dL (3.4-5.0) Glucose (Fingerstick) 256 mg/dL (70-99) Results All relevant outside records, renal labs, imaging studies, telemetry/EKG's were reviewed. GRAY PÉREZ MD Jan 26, 2019 09:52
--- NOTE | 2019-01-26 10:18 | PDOC ---
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 There is moderate to severe narrowing of the left neural foramen. Laminectomy is apparent on the left side hyperkalemia CKD stage 3-4 MUKESH 01/26 states low back pain is just intolerable will order mri l/s plan: gabapentin 100mg po tid buspar 10mg po bid no narcotics due to hypercapnea, SEVERE consult pulm IV ROCEPHIN, VANC in er, d/c vanc due to ckd bipap at night, pt refuses. on NC duoneb, QID insulin to lantus 15u qhs, aspart 5u tid, ssi cough meds dvt ppx PTOT abdominal binder when up consulted dr johnson IV STEROIDS, taper iv fluid support nephrology consult MRI L/S 46 min pt exam, chart review,> 50% of time with pt exam, chart review, pt care coordination AT HIGH RISK OF PULM ARREST, DUE TO BIPAP NONCOMPLIANCE PER MY CHART REVIEW Vitals Vitals Vital Signs Date Time Temp Pulse Resp B/P (MAP) Pulse Ox O2 Delivery O2 Flow Rate FiO2 01/26/19 08:12 80 164/97 01/26/19 07:50 98.1 20 98 Nasal Cannula 3.0 98.1 Physical Exam General: Alert, Oriented X3, Cooperative, mild distress, moderate distress Heart: Regular rate, Normal S1, No murmurs Lungs: Crackles, Other Abdomen: Normal bowel sounds, Soft, Other (very obese) Extremities: No clubbing, No cyanosis Skin: No breakdown, No significant lesion Labs LABS Laboratory Tests Test 01/25/19 11:34 01/25/19 16:52 01/25/19 17:50 01/25/19 21:11 Glucose (Fingerstick) 290 mg/dL (70-99) 231 mg/dL (70-99) 240 mg/dL (70-99) Potassium Level 4.4 mmol/L (3.5-5.1) Test 01/26/19 07:00 01/26/19 07:59 White Blood Count 6.4 x10^3/uL (4.0-11.0) Red Blood Count 3.25 x10^6/uL (3.50-5.40) Hemoglobin 9.2 g/dL (12.0-15.5) Hematocrit 28.7 % (36.0-47.0) Mean Corpuscular Volume 88 fL (79-100) Mean Corpuscular Hemoglobin 28 pg (25-35) Mean Corpuscular Hemoglobin Concent 32 g/dL (31-37) Red Cell Distribution Width 15.0 % (11.5-14.5) Platelet Count 132 x10^3/uL (140-400) Neutrophils (%) (Auto) 82 % (31-73) Lymphocytes (%) (Auto) 13 % (24-48) Monocytes (%) (Auto) 5 % (0-9) Eosinophils (%) (Auto) 0 % (0-3) Basophils (%) (Auto) 0 % (0-3) Neutrophils # (Auto) 5.3 x10^3uL (1.8-7.7) Lymphocytes # (Auto) 0.8 x10^3/uL (1.0-4.8) Monocytes # (Auto) 0.3 x10^3/uL (0.0-1.1) Eosinophils # (Auto) 0.0 x10^3/uL (0.0-0.7) Basophils # (Auto) 0.0 x10^3/uL (0.0-0.2) Sodium Level 140 mmol/L (136-145) Potassium Level 4.4 mmol/L (3.5-5.1) Chloride Level 104 mmol/L (98-107) Carbon Dioxide Level 32 mmol/L (21-32) Anion Gap 4 (6-14) Blood Urea Nitrogen 37 mg/dL (7-20) Creatinine 1.8 mg/dL (0.6-1.0) Estimated GFR (Cockcroft-Gault) 28.7 Glucose Level 275 mg/dL (70-99) Calcium Level 7.4 mg/dL (8.5-10.1) Phosphorus Level 3.2 mg/dL (2.6-4.7) Albumin 2.9 g/dL (3.4-5.0) Glucose (Fingerstick) 256 mg/dL (70-99) Assessment and Plan Assessmemt and Plan Problems Medical Problems: (1) Acute and chronic respiratory failure ([id number]) Status: Acute (2) Anxiety Status: Acute (3) Hyperglycemia Status: Acute (4) Renal failure Status: Acute Comment Review of Relevant I have reviewed the following items kylee (where applicable) has been applied. Labs Laboratory Tests Test 01/24/19 10:42 01/24/19 11:55 01/24/19 16:26 01/24/19 19:46 Glucose (Fingerstick) 176 mg/dL (70-99) 114 mg/dL (70-99) 186 mg/dL (70-99) 163 mg/dL (70-99) Test 01/25/19 05:10 01/25/19 07:36 01/25/19 11:34 01/25/19 16:52 Sodium Level 141 mmol/L (136-145) Potassium Level 6.0 mmol/L (3.5-5.1) Chloride Level 103 mmol/L (98-107) Carbon Dioxide Level 33 mmol/L (21-32) Anion Gap 5 (6-14) Blood Urea Nitrogen 40 mg/dL (7-20) Creatinine 2.0 mg/dL (0.6-1.0) Estimated GFR (Cockcroft-Gault) 25.4 Glucose Level 282 mg/dL (70-99) Calcium Level 7.5 mg/dL (8.5-10.1) Phosphorus Level 2.9 mg/dL (2.6-4.7) Albumin 3.1 g/dL (3.4-5.0) Glucose (Fingerstick) 269 mg/dL (70-99) 290 mg/dL (70-99) 231 mg/dL (70-99) Test 01/25/19 17:50 01/25/19 21:11 01/26/19 07:00 01/26/19 07:59 Potassium Level 4.4 mmol/L (3.5-5.1) 4.4 mmol/L (3.5-5.1) Glucose (Fingerstick) 240 mg/dL (70-99) 256 mg/dL (70-99) White Blood Count 6.4 x10^3/uL (4.0-11.0) Red Blood Count 3.25 x10^6/uL (3.50-5.40) Hemoglobin 9.2 g/dL (12.0-15.5) Hematocrit 28.7 % (36.0-47.0) Mean Corpuscular Volume 88 fL (79-100) Mean Corpuscular Hemoglobin 28 pg (25-35) Mean Corpuscular Hemoglobin Concent 32 g/dL (31-37) Red Cell Distribution Width 15.0 % (11.5-14.5) Platelet Count 132 x10^3/uL (140-400) Neutrophils (%) (Auto) 82 % (31-73) Lymphocytes (%) (Auto) 13 % (24-48) Monocytes (%) (Auto) 5 % (0-9) Eosinophils (%) (Auto) 0 % (0-3) Basophils (%) (Auto) 0 % (0-3) Neutrophils # (Auto) 5.3 x10^3uL (1.8-7.7) Lymphocytes # (Auto) 0.8 x10^3/uL (1.0-4.8) Monocytes # (Auto) 0.3 x10^3/uL (0.0-1.1) Eosinophils # (Auto) 0.0 x10^3/uL (0.0-0.7) Basophils # (Auto) 0.0 x10^3/uL (0.0-0.2) Sodium Level 140 mmol/L (136-145) Chloride Level 104 mmol/L (98-107) Carbon Dioxide Level 32 mmol/L (21-32) Anion Gap 4 (6-14) Blood Urea Nitrogen 37 mg/dL (7-20) Creatinine 1.8 mg/dL (0.6-1.0) Estimated GFR (Cockcroft-Gault) 28.7 Glucose Level 275 mg/dL (70-99) Calcium Level 7.4 mg/dL (8.5-10.1) Phosphorus Level 3.2 mg/dL (2.6-4.7) Albumin 2.9 g/dL (3.4-5.0) Laboratory Tests Test 01/25/19 11:34 01/25/19 16:52 01/25/19 17:50 01/25/19 21:11 Glucose (Fingerstick) 290 mg/dL (70-99) 231 mg/dL (70-99) 240 mg/dL (70-99) Potassium Level 4.4 mmol/L (3.5-5.1) Test 01/26/19 07:00 01/26/19 07:59 White Blood Count 6.4 x10^3/uL (4.0-11.0) Red Blood Count 3.25 x10^6/uL (3.50-5.40) Hemoglobin 9.2 g/dL (12.0-15.5) Hematocrit 28.7 % (36.0-47.0) Mean Corpuscular Volume 88 fL (79-100) Mean Corpuscular Hemoglobin 28 pg (25-35) Mean Corpuscular Hemoglobin Concent 32 g/dL (31-37) Red Cell Distribution Width 15.0 % (11.5-14.5) Platelet Count 132 x10^3/uL (140-400) Neutrophils (%) (Auto) 82 % (31-73) Lymphocytes (%) (Auto) 13 % (24-48) Monocytes (%) (Auto) 5 % (0-9) Eosinophils (%) (Auto) 0 % (0-3) Basophils (%) (Auto) 0 % (0-3) Neutrophils # (Auto) 5.3 x10^3uL (1.8-7.7) Lymphocytes # (Auto) 0.8 x10^3/uL (1.0-4.8) Monocytes # (Auto) 0.3 x10^3/uL (0.0-1.1) Eosinophils # (Auto) 0.0 x10^3/uL (0.0-0.7) Basophils # (Auto) 0.0 x10^3/uL (0.0-0.2) Sodium Level 140 mmol/L (136-145) Potassium Level 4.4 mmol/L (3.5-5.1) Chloride Level 104 mmol/L (98-107) Carbon Dioxide Level 32 mmol/L (21-32) Anion Gap 4 (6-14) Blood Urea Nitrogen 37 mg/dL (7-20) Creatinine 1.8 mg/dL (0.6-1.0) Estimated GFR (Cockcroft-Gault) 28.7 Glucose Level 275 mg/dL (70-99) Calcium Level 7.4 mg/dL (8.5-10.1) Phosphorus Level 3.2 mg/dL (2.6-4.7) Albumin 2.9 g/dL (3.4-5.0) Glucose (Fingerstick) 256 mg/dL (70-99) Microbiology 01/23/19 Blood Culture - Preliminary, Resulted NO GROWTH AFTER 3 DAYS Medications Current Medications Albuterol/ Ipratropium (Duoneb) 3 ml 1X ONCE NEB Last administered on at 08:04; Start 01/23/19 at 08:00; Stop 01/23/19 at 08:03; Status DC Methylprednisolone Sodium Succinate (SOLU-Medrol 125MG VIAL) 125 mg 1X ONCE IV Last administered on 01/23/19at 08:25; Start 01/23/19 at 08:00; Stop 01/23/19 at 08:03; Status DC Oxycodone/ Acetaminophen (Percocet 5/325) 1 tab 1X ONCE PO Last administered on 01/23/19at 09:01; Start 01/23/19 at 09:00; Stop 01/23/19 at 09:01; Status DC Ceftriaxone Sodium (Rocephin) 1 gm 1X ONCE IVP Last administered on 01/23/19at 09:00; Start 01/23/19 at 09:00; Stop 01/23/19 at 09:01; Status DC Magnesium Sulfate 50 ml @ 25 mls/hr 1X ONCE IV Last administered on 01/23/19at 15:06; Start 01/23/19 at 09:15; Stop 01/23/19 at 11:14; Status DC Sodium Chloride 1,000 ml @ 1,000 mls/hr 1X ONCE IV Last administered on at 15:07; Start 01/23/19 at 09:15; Stop 01/23/19 at 10:14; Status DC Vancomycin HCl 2 gm/Sodium Chloride 500 ml @ 250 mls/hr 1X ONCE IV Last administered on 01/23/19at 09:52; Start 01/23/19 at 09:30; Stop 01/23/19 at 11:29; Status DC Sodium Chloride 1,000 ml @ 150 mls/hr Q6H40M IV Last administered on 06:30; Start 01/23/19 at 09:30; Stop 01/24/19 at 09:29; Status DC Aspirin (Children'S Aspirin) 81 mg DAILY PO Last administered on 01/26/19 08: 16; Start 01/23/19 at 11:00 Bupropion HCl (Wellbutrin Sr) 150 mg BID PO Last administered on 01/26/19 08: 17; Start 01/23/19 at 11:00 Carvedilol (Coreg) 6.25 mg BIDWMEALS PO Last administered on 01/26/19 08:12; Start 01/23/19 at 11:00 Furosemide (Lasix) 40 mg DAILY PO Last administered on 01/26/19 08:11; Start 01/23/19 at 11:00 Nystatin (Nystop) 1 omid PRN BID PRN TP Yeast infection; Start 01/23/19 at 09:30 Potassium Chloride (Klor-Con) 40 meq DAILY PO Last administered on 01/24/19 08 :51; Start 01/23/19 at 11:00; Stop 01/25/19 at 14:17; Status DC Senna/Docusate Sodium (Senna Plus) 1 tab BID PO Last administered on 01/25/19 08:51; Start 01/23/19 at 11:00 Insulin Human Lispro (HumaLOG) 10 units TIDWMEALS SQ Last administered on 08:33; Start 01/23/19 at 12:00 Insulin Glargine (Lantus) 18 units QHS SQ Last administered on 01/25/19 21:21 ; Start 01/23/19 at 21:00 Lidocaine (Lidoderm) 1 patch QHS TD ; Start 01/23/19 at 21:00; Stop 01/23/19 at 21 :00; Status DC Montelukast Sodium (Singulair) 10 mg QHS PO Last administered on 01/25/19 21: 03; Start 01/23/19 at 21:00 Spironolactone (Aldactone) 25 mg DAILY PO Last administered on 01/24/19 08:51 ; Start 01/23/19 at 11:00; Stop 01/25/19 at 14:18; Status DC Topiramate (Topamax) 25 mg QHS PO Last administered on 01/25/19 21:03; Start 01/23/19 at 21:00 Non-Formulary Medication ([Aspirin] ) 325 mg DAILYWBKFT PO ; Start 01/24/19 at 08:00; Status UNV Pantoprazole Sodium (Protonix) 40 mg DAILYAC PO Last administered on 01/26/19 08:12; Start 01/23/19 at 11:00 Non-Formulary Medication (Ipratropium/ Albuterol Sulfate (Combivent Respimat Inhal)) 2 inh QID IH ; Start 01/23/19 at 13:00; Status UNV Albuterol/ Ipratropium (Duoneb) 3 ml RTQID NEB Last administered on 01/25/19at 19:48; Start 01/23/19 at 12:00 Insulin Human Lispro (HumaLOG) 0-5 UNITS TIDWMEALS SQ Last administered on 01/26 08:35; Start 01/23/19 at 12:00 Dextrose (Dextrose 50%-Water Syringe) 12.5 gm PRN Q15MIN PRN IV SEE COMMENTS; Start 01/23/19 at 10:15 Lidocaine/Sodium Bicarbonate (Buffered Lidocaine 1%) 3 ml STK-MED ONCE .ROUTE ; Start 01/23/19 at 13:44; Stop 01/23/19 at 13:45; Status DC Lidocaine/Sodium Bicarbonate (Buffered Lidocaine 1%) 3 ml 1X ONCE INJ Last administered on 01/23/19 14:01; Start 01/23/19 at 14:00; Stop 01/23/19 at 14:01; Status DC Lidocaine (Lidoderm) 1 patch DAILY TD Last administered on 01/26/19 08:15; Start 01/23/19 at 18:00 Miscellaneous (Lidoderm Patch Removal) 1 ea QHS MC Last administered on 20:54; Start 01/23/19 at 21:00 Oxycodone/ Acetaminophen (Percocet 5/325) 1 tab PRN Q6HRS PRN PO PAIN Last administered on 01/23/19 23:17; Start 01/23/19 at 22:45 Quetiapine Fumarate (SEROquel) 25 mg QHS PO ; Start 01/24/19 at 21:00; Stop 08/04 at 21:00; Status DC Quetiapine Fumarate (SEROquel) 25 mg QHS PO Last administered on 01/25/19at 21: 03; Start 01/23/19 at 23:00 Enoxaparin Sodium (Lovenox 60mg Syringe) 60 mg Q12HR SQ Last administered on 10/04at 08:11; Start 01/24/19 at 11:30 Magnesium Sulfate 50 ml @ 25 mls/hr 1X ONCE IV Last administered on 01/24/19at 17:05; Start 01/24/19 at 16:00; Stop 01/24/19 at 17:59; Status DC Ceftriaxone Sodium (Rocephin) 1 gm Q24H IVP Last administered on 01/25/19at 15: 54; Start 01/24/19 at 16:00 Methylprednisolone Sodium Succinate (SOLU-Medrol 40MG VIAL) 80 mg Q8HRS IV Last administered on 01/25/19at 05:04; Start 01/24/19 at 17:00; Stop 01/25/19 at 11:55; Status DC Ibuprofen (Motrin) 600 mg PRN Q8HRS PRN PO INFLAMMATION Last administered on 10/04at 08:16; Start 01/24/19 at 23:15 Cyclobenzaprine HCl (Flexeril) 10 mg PRN Q12HR PRN PO MUSCLE SPASMS Last administered on 01/26/19at 08:15; Start 01/24/19 at 23:15 Buspirone HCl (Buspar) 10 mg BID PO Last administered on 01/26/19at 08:12; Start 01/25/19 at 11:00 Sodium Polystyrene Sulfonate (Kayexalate) 30 gm 1X ONCE PO Last administered on 01/25/19at 11:19; Start 01/25/19 at 11:00; Stop 01/25/19 at 11:03; Status DC Methylprednisolone Sodium Succinate (SOLU-Medrol 40MG VIAL) 40 mg Q8HRS IV Last administered on 01/26/19at 06:23; Start 01/25/19 at 14:00; Stop 01/26/19 at 07:00; Status DC Sodium Polystyrene Sulfonate (Kayexalate) 30 gm 1X ONCE PO ; Start 01/25/19 at 14:30; Stop 01/25/19 at 14:31; Status DC Lactobacillus Rhamnosus (Culturelle) 1 cap BID PO Last administered on at 08:12; Start 01/25/19 at 21:00 Hydralazine HCl (Apresoline Inj) 10 mg PRN Q6HRS PRN IVP ELEVATED BP, SEE COMMENTS Last administered on 01/25/19at 17:29; Start 01/25/19 at 17:15 Gabapentin (Neurontin) 100 mg TID@0900,1300,1800 PO Last administered on at 08:15; Start 01/25/19 at 18:00 Gabapentin (Neurontin) 200 mg QHS PO Last administered on 01/25/19at 21:03; Start 01/25/19 at 21:00 Methylprednisolone Sodium Succinate (SOLU-Medrol 40MG VIAL) 40 mg Q12HR IV ; Start 01/26/19 at 21:00 Active Scripts Active Lidocaine 1 Each Adh..patch 1 Patch TD QHS 30 Days Senna-Time S Tablet (Sennosides/Docusate Sodium) 1 Each Tablet 1 Tab PO BID 14 Days Levemir Flextouch (Insulin Detemir) 100 Unit/1 Ml Insuln.pen 18 Units SQ QHS Novolog Flexpen (Insulin Aspart) 100 Unit/1 Ml Insuln.pen 10 Units SQ TIDAC Topamax (Topiramate) 25 Mg Tablet 25 Mg PO HS Combivent Respimat Inhal (Ipratropium/Albuterol Sulfate) 4 Gm Aer.w.adap 2 Inh IH QID Lasix (Furosemide) 40 Mg Tablet 1 Tab PO DAILY Aldactone (Spironolactone) 25 Mg Tablet 25 Mg PO DAILY Klor-Con M20 (Potassium Chloride) 20 Meq Tablet.er 40 Meq PO DAILY Nystop (Nystatin) 1 Omid Omid 1 Omid TP BID PRN [Aspirin] 325 MG Tablet.dr 325 Mg PO DAILYWBKFT Reported Wellbutrin Sr (Bupropion Hcl) 150 Mg Tablet.er 1 Tab PO BID Aspirin 81 Mg Tab.chew 1 Tab PO DAILY Montelukast Sodium Tablet (Montelukast Sodium) 10 Mg Tablet 10 Mg PO HS Carvedilol (Carvedilol) 6.25 Mg Tablet 6.25 Mg PO BIDWMEALS Pantoprazole Sodium 40 Mg Tablet.dr 40 Mg PO DAILY Vitals/I & O Vital Sign - Last 24 Hours 01/25/19 01/25/19 01/25/19 01/25/19 11:00 11:36 15:00 15:31 Temp 97.5 97.4 97.5 97.4 Pulse 82 87 Resp 22 20 B/P (MAP) 169/60 (96) 181/72 (108) Pulse Ox 98 97 90 97 O2 Delivery Nasal Cannula Venturi Mask Nasal Cannula Nasal Cannula O2 Flow Rate 3.0 9.0 3.0 2.0 01/25/19 01/25/19 01/25/19 01/25/19 17:28 17:29 19:00 19:50 Temp 98.5 98.5 Pulse 87 87 88 Resp 20 B/P (MAP) 181/72 181/72 155/58 (90) Pulse Ox 96 97 O2 Delivery Nasal Cannula Nasal Cannula O2 Flow Rate 3.0 2.0 01/25/19 01/25/19 01/26/19 01/26/19 20:00 23:00 03:00 07:50 Temp 97.5 97.4 98.1 97.5 97.4 98.1 Pulse 91 80 80 Resp 22 22 20 B/P (MAP) 139/52 (81) 174/85 (114) 164/97 (119) Pulse Ox 92 99 98 O2 Delivery Nasal Cannula Nasal Cannula Nasal Cannula Nasal Cannula O2 Flow Rate 3.0 3.0 3.0 3.0 01/26/19 08:12 Pulse 80 B/P (MAP) 164/97 Intake and Output 01/25/19 01/25/19 01/26/19 15:00 23:00 07:00 Intake Total 400 ml 700 ml 900 ml Balance 400 ml 700 ml 900 ml ACE ZELAYA MD Jan 26, 2019 10:18
--- NOTE | 2019-01-26 10:30 | PDOC ---
PROGRESS NOTES Subjective Subjective She feels better from her breathing but admits continued back and hip area pain. Objective Objective Vital Signs Date Time Temp Pulse Resp B/P (MAP) Pulse Ox O2 Delivery O2 Flow Rate FiO2 01/26/19 08:12 80 164/97 01/26/19 08:00 Nasal Cannula 3.0 01/26/19 07:50 98.1 20 98 98.1 Intake and Output 01/26/19 07:00 Intake Total 2000 ml Balance 2000 ml Intake Oral 2000 ml # Voids 5 # Bowel Movements 2 Physical Exam Physical Exam She is sitting in bed and does not seem to be in any significant distress and she is independent with her bed mobility and transfers with roller walker. Assessment Assessment Problems Medical Problems: (1) Acute and chronic respiratory failure ([id number]) Status: Acute (2) Anxiety Status: Acute (3) Hyperglycemia Status: Acute (4) Renal failure Status: Acute Plan Plan of Alf when medically stable. Comment Review of Relevant I have reviewed the following items kylee (where applicable) has been applied. Labs Laboratory Tests Test 01/24/19 10:42 01/24/19 11:55 01/24/19 16:26 01/24/19 19:46 Glucose (Fingerstick) 176 mg/dL (70-99) 114 mg/dL (70-99) 186 mg/dL (70-99) 163 mg/dL (70-99) Test 01/25/19 05:10 01/25/19 07:36 01/25/19 11:34 01/25/19 16:52 Sodium Level 141 mmol/L (136-145) Potassium Level 6.0 mmol/L (3.5-5.1) Chloride Level 103 mmol/L (98-107) Carbon Dioxide Level 33 mmol/L (21-32) Anion Gap 5 (6-14) Blood Urea Nitrogen 40 mg/dL (7-20) Creatinine 2.0 mg/dL (0.6-1.0) Estimated GFR (Cockcroft-Gault) 25.4 Glucose Level 282 mg/dL (70-99) Calcium Level 7.5 mg/dL (8.5-10.1) Phosphorus Level 2.9 mg/dL (2.6-4.7) Albumin 3.1 g/dL (3.4-5.0) Glucose (Fingerstick) 269 mg/dL (70-99) 290 mg/dL (70-99) 231 mg/dL (70-99) Test 01/25/19 17:50 01/25/19 21:11 01/26/19 07:00 01/26/19 07:59 Potassium Level 4.4 mmol/L (3.5-5.1) 4.4 mmol/L (3.5-5.1) Glucose (Fingerstick) 240 mg/dL (70-99) 256 mg/dL (70-99) White Blood Count 6.4 x10^3/uL (4.0-11.0) Red Blood Count 3.25 x10^6/uL (3.50-5.40) Hemoglobin 9.2 g/dL (12.0-15.5) Hematocrit 28.7 % (36.0-47.0) Mean Corpuscular Volume 88 fL (79-100) Mean Corpuscular Hemoglobin 28 pg (25-35) Mean Corpuscular Hemoglobin Concent 32 g/dL (31-37) Red Cell Distribution Width 15.0 % (11.5-14.5) Platelet Count 132 x10^3/uL (140-400) Neutrophils (%) (Auto) 82 % (31-73) Lymphocytes (%) (Auto) 13 % (24-48) Monocytes (%) (Auto) 5 % (0-9) Eosinophils (%) (Auto) 0 % (0-3) Basophils (%) (Auto) 0 % (0-3) Neutrophils # (Auto) 5.3 x10^3uL (1.8-7.7) Lymphocytes # (Auto) 0.8 x10^3/uL (1.0-4.8) Monocytes # (Auto) 0.3 x10^3/uL (0.0-1.1) Eosinophils # (Auto) 0.0 x10^3/uL (0.0-0.7) Basophils # (Auto) 0.0 x10^3/uL (0.0-0.2) Sodium Level 140 mmol/L (136-145) Chloride Level 104 mmol/L (98-107) Carbon Dioxide Level 32 mmol/L (21-32) Anion Gap 4 (6-14) Blood Urea Nitrogen 37 mg/dL (7-20) Creatinine 1.8 mg/dL (0.6-1.0) Estimated GFR (Cockcroft-Gault) 28.7 Glucose Level 275 mg/dL (70-99) Calcium Level 7.4 mg/dL (8.5-10.1) Phosphorus Level 3.2 mg/dL (2.6-4.7) Albumin 2.9 g/dL (3.4-5.0) Laboratory Tests Test 01/25/19 11:34 01/25/19 16:52 01/25/19 17:50 01/25/19 21:11 Glucose (Fingerstick) 290 mg/dL (70-99) 231 mg/dL (70-99) 240 mg/dL (70-99) Potassium Level 4.4 mmol/L (3.5-5.1) Test 01/26/19 07:00 01/26/19 07:59 White Blood Count 6.4 x10^3/uL (4.0-11.0) Red Blood Count 3.25 x10^6/uL (3.50-5.40) Hemoglobin 9.2 g/dL (12.0-15.5) Hematocrit 28.7 % (36.0-47.0) Mean Corpuscular Volume 88 fL (79-100) Mean Corpuscular Hemoglobin 28 pg (25-35) Mean Corpuscular Hemoglobin Concent 32 g/dL (31-37) Red Cell Distribution Width 15.0 % (11.5-14.5) Platelet Count 132 x10^3/uL (140-400) Neutrophils (%) (Auto) 82 % (31-73) Lymphocytes (%) (Auto) 13 % (24-48) Monocytes (%) (Auto) 5 % (0-9) Eosinophils (%) (Auto) 0 % (0-3) Basophils (%) (Auto) 0 % (0-3) Neutrophils # (Auto) 5.3 x10^3uL (1.8-7.7) Lymphocytes # (Auto) 0.8 x10^3/uL (1.0-4.8) Monocytes # (Auto) 0.3 x10^3/uL (0.0-1.1) Eosinophils # (Auto) 0.0 x10^3/uL (0.0-0.7) Basophils # (Auto) 0.0 x10^3/uL (0.0-0.2) Sodium Level 140 mmol/L (136-145) Potassium Level 4.4 mmol/L (3.5-5.1) Chloride Level 104 mmol/L (98-107) Carbon Dioxide Level 32 mmol/L (21-32) Anion Gap 4 (6-14) Blood Urea Nitrogen 37 mg/dL (7-20) Creatinine 1.8 mg/dL (0.6-1.0) Estimated GFR (Cockcroft-Gault) 28.7 Glucose Level 275 mg/dL (70-99) Calcium Level 7.4 mg/dL (8.5-10.1) Phosphorus Level 3.2 mg/dL (2.6-4.7) Albumin 2.9 g/dL (3.4-5.0) Glucose (Fingerstick) 256 mg/dL (70-99) Microbiology 01/23/19 Blood Culture - Preliminary, Resulted NO GROWTH AFTER 3 DAYS Medications Current Medications Albuterol/ Ipratropium (Duoneb) 3 ml 1X ONCE NEB Last administered on at 08:04; Start 01/23/19 at 08:00; Stop 01/23/19 at 08:03; Status DC Methylprednisolone Sodium Succinate (SOLU-Medrol 125MG VIAL) 125 mg 1X ONCE IV Last administered on 01/23/19at 08:25; Start 01/23/19 at 08:00; Stop 01/23/19 at 08:03; Status DC Oxycodone/ Acetaminophen (Percocet 5/325) 1 tab 1X ONCE PO Last administered on 01/23/19at 09:01; Start 01/23/19 at 09:00; Stop 01/23/19 at 09:01; Status DC Ceftriaxone Sodium (Rocephin) 1 gm 1X ONCE IVP Last administered on 01/23/19at 09:00; Start 01/23/19 at 09:00; Stop 01/23/19 at 09:01; Status DC Magnesium Sulfate 50 ml @ 25 mls/hr 1X ONCE IV Last administered on 01/23/19at 15:06; Start 01/23/19 at 09:15; Stop 01/23/19 at 11:14; Status DC Sodium Chloride 1,000 ml @ 1,000 mls/hr 1X ONCE IV Last administered on 15:07; Start 01/23/19 at 09:15; Stop 01/23/19 at 10:14; Status DC Vancomycin HCl 2 gm/Sodium Chloride 500 ml @ 250 mls/hr 1X ONCE IV Last administered on 01/23/19 09:52; Start 01/23/19 at 09:30; Stop 01/23/19 at 11:29; Status DC Sodium Chloride 1,000 ml @ 150 mls/hr Q6H40M IV Last administered on 06:30; Start 01/23/19 at 09:30; Stop 01/24/19 at 09:29; Status DC Aspirin (Children'S Aspirin) 81 mg DAILY PO Last administered on 01/26/19 08: 16; Start 01/23/19 at 11:00 Bupropion HCl (Wellbutrin Sr) 150 mg BID PO Last administered on 01/26/19 08: 17; Start 01/23/19 at 11:00 Carvedilol (Coreg) 6.25 mg BIDWMEALS PO Last administered on 01/26/19 08:12; Start 01/23/19 at 11:00 Furosemide (Lasix) 40 mg DAILY PO Last administered on 01/26/19 08:11; Start 01/23/19 at 11:00 Nystatin (Nystop) 1 omid PRN BID PRN TP Yeast infection; Start 01/23/19 at 09:30 Potassium Chloride (Klor-Con) 40 meq DAILY PO Last administered on 01/24/19 08 :51; Start 01/23/19 at 11:00; Stop 01/25/19 at 14:17; Status DC Senna/Docusate Sodium (Senna Plus) 1 tab BID PO Last administered on 01/25/19 08:51; Start 01/23/19 at 11:00 Insulin Human Lispro (HumaLOG) 10 units TIDWMEALS SQ Last administered on 08:33; Start 01/23/19 at 12:00 Insulin Glargine (Lantus) 18 units QHS SQ Last administered on 01/25/19 21:21 ; Start 01/23/19 at 21:00 Lidocaine (Lidoderm) 1 patch QHS TD ; Start 01/23/19 at 21:00; Stop 01/23/19 at 21 :00; Status DC Montelukast Sodium (Singulair) 10 mg QHS PO Last administered on 01/25/19at 21: 03; Start 01/23/19 at 21:00 Spironolactone (Aldactone) 25 mg DAILY PO Last administered on 01/24/19at 08:51 ; Start 01/23/19 at 11:00; Stop 01/25/19 at 14:18; Status DC Topiramate (Topamax) 25 mg QHS PO Last administered on 01/25/19at 21:03; Start 01/23/19 at 21:00 Non-Formulary Medication ([Aspirin] ) 325 mg DAILYWBKFT PO ; Start 01/24/19 at 08:00; Status UNV Pantoprazole Sodium (Protonix) 40 mg DAILYAC PO Last administered on 01/26/19at 08:12; Start 01/23/19 at 11:00 Non-Formulary Medication (Ipratropium/ Albuterol Sulfate (Combivent Respimat Inhal)) 2 inh QID IH ; Start 01/23/19 at 13:00; Status UNV Albuterol/ Ipratropium (Duoneb) 3 ml RTQID NEB Last administered on 01/25/19at 19:48; Start 01/23/19 at 12:00 Insulin Human Lispro (HumaLOG) 0-5 UNITS TIDWMEALS SQ Last administered on 01/26at 08:35; Start 01/23/19 at 12:00 Dextrose (Dextrose 50%-Water Syringe) 12.5 gm PRN Q15MIN PRN IV SEE COMMENTS; Start 01/23/19 at 10:15 Lidocaine/Sodium Bicarbonate (Buffered Lidocaine 1%) 3 ml STK-MED ONCE .ROUTE ; Start 01/23/19 at 13:44; Stop 01/23/19 at 13:45; Status DC Lidocaine/Sodium Bicarbonate (Buffered Lidocaine 1%) 3 ml 1X ONCE INJ Last administered on 01/23/19at 14:01; Start 01/23/19 at 14:00; Stop 01/23/19 at 14:01; Status DC Lidocaine (Lidoderm) 1 patch DAILY TD Last administered on 01/26/19at 08:15; Start 01/23/19 at 18:00 Miscellaneous (Lidoderm Patch Removal) 1 ea QHS MC Last administered on at 20:54; Start 01/23/19 at 21:00 Oxycodone/ Acetaminophen (Percocet 5/325) 1 tab PRN Q6HRS PRN PO PAIN Last administered on 01/23/19 23:17; Start 01/23/19 at 22:45 Quetiapine Fumarate (SEROquel) 25 mg QHS PO ; Start 01/24/19 at 21:00; Stop 08/04 at 21:00; Status DC Quetiapine Fumarate (SEROquel) 25 mg QHS PO Last administered on 01/25/19at 21: 03; Start 01/23/19 at 23:00 Enoxaparin Sodium (Lovenox 60mg Syringe) 60 mg Q12HR SQ Last administered on 08:11; Start 01/24/19 at 11:30 Magnesium Sulfate 50 ml @ 25 mls/hr 1X ONCE IV Last administered on 01/24/19at 17:05; Start 01/24/19 at 16:00; Stop 01/24/19 at 17:59; Status DC Ceftriaxone Sodium (Rocephin) 1 gm Q24H IVP Last administered on 01/25/19 15: 54; Start 01/24/19 at 16:00 Methylprednisolone Sodium Succinate (SOLU-Medrol 40MG VIAL) 80 mg Q8HRS IV Last administered on 01/25/19 05:04; Start 01/24/19 at 17:00; Stop 01/25/19 at 11:55; Status DC Ibuprofen (Motrin) 600 mg PRN Q8HRS PRN PO INFLAMMATION Last administered on 08:16; Start 01/24/19 at 23:15 Cyclobenzaprine HCl (Flexeril) 10 mg PRN Q12HR PRN PO MUSCLE SPASMS Last administered on 01/26/19 08:15; Start 01/24/19 at 23:15 Buspirone HCl (Buspar) 10 mg BID PO Last administered on 01/26/19 08:12; Start 01/25/19 at 11:00 Sodium Polystyrene Sulfonate (Kayexalate) 30 gm 1X ONCE PO Last administered on 4/11/19at 11:19; Start 01/25/19 at 11:00; Stop 01/25/19 at 11:03; Status DC Methylprednisolone Sodium Succinate (SOLU-Medrol 40MG VIAL) 40 mg Q8HRS IV Last administered on 01/26/19at 06:23; Start 01/25/19 at 14:00; Stop 01/26/19 at 07:00; Status DC Sodium Polystyrene Sulfonate (Kayexalate) 30 gm 1X ONCE PO ; Start 01/25/19 at 14:30; Stop 01/25/19 at 14:31; Status DC Lactobacillus Rhamnosus (Culturelle) 1 cap BID PO Last administered on at 08:12; Start 01/25/19 at 21:00 Hydralazine HCl (Apresoline Inj) 10 mg PRN Q6HRS PRN IVP ELEVATED BP, SEE COMMENTS Last administered on 01/25/19at 17:29; Start 01/25/19 at 17:15 Gabapentin (Neurontin) 100 mg TID@0900,1300,1800 PO Last administered on at 08:15; Start 01/25/19 at 18:00 Gabapentin (Neurontin) 200 mg QHS PO Last administered on 01/25/19at 21:03; Start 01/25/19 at 21:00 Methylprednisolone Sodium Succinate (SOLU-Medrol 40MG VIAL) 40 mg Q12HR IV ; Start 01/26/19 at 21:00 Active Scripts Active Lidocaine 1 Each Adh..patch 1 Patch TD QHS 30 Days Senna-Time S Tablet (Sennosides/Docusate Sodium) 1 Each Tablet 1 Tab PO BID 14 Days Levemir Flextouch (Insulin Detemir) 100 Unit/1 Ml Insuln.pen 18 Units SQ QHS Novolog Flexpen (Insulin Aspart) 100 Unit/1 Ml Insuln.pen 10 Units SQ TIDAC Topamax (Topiramate) 25 Mg Tablet 25 Mg PO HS Combivent Respimat Inhal (Ipratropium/Albuterol Sulfate) 4 Gm Aer.w.adap 2 Inh IH QID Lasix (Furosemide) 40 Mg Tablet 1 Tab PO DAILY Aldactone (Spironolactone) 25 Mg Tablet 25 Mg PO DAILY Klor-Con M20 (Potassium Chloride) 20 Meq Tablet.er 40 Meq PO DAILY Nystop (Nystatin) 1 Omid Omid 1 Omid TP BID PRN [Aspirin] 325 MG Tablet. 325 Mg PO DAILYWBKFT Reported Wellbutrin Sr (Bupropion Hcl) 150 Mg Tablet.er 1 Tab PO BID Aspirin 81 Mg Tab.chew 1 Tab PO DAILY Montelukast Sodium Tablet (Montelukast Sodium) 10 Mg Tablet 10 Mg PO HS Carvedilol (Carvedilol) 6.25 Mg Tablet 6.25 Mg PO BIDWMEALS Pantoprazole Sodium 40 Mg Tablet.dr 40 Mg PO DAILY Vitals/I & O Vital Sign - Last 24 Hours 01/25/19 01/25/19 01/25/19 01/25/19 11:00 11:36 15:00 15:31 Temp 97.5 97.4 97.5 97.4 Pulse 82 87 Resp 20 B/P (MAP) 169/60 (96) 181/72 (108) Pulse Ox 98 97 90 97 O2 Delivery Nasal Cannula Venturi Mask Nasal Cannula Nasal Cannula O2 Flow Rate 3.0 9.0 3.0 2.0 01/25/19 01/25/19 01/25/19 01/25/19 17:28 17:29 19:00 19:50 Temp 98.5 98.5 Pulse 87 87 88 Resp 20 B/P (MAP) 181/72 181/72 155/58 (90) Pulse Ox 96 97 O2 Delivery Nasal Cannula Nasal Cannula O2 Flow Rate 3.0 2.0 01/25/19 01/25/19 01/26/19 01/26/19 20:00 23:00 03:00 07:50 Temp 97.5 97.4 98.1 97.5 97.4 98.1 Pulse 91 80 80 Resp 20 B/P (MAP) 139/52 (81) 174/85 (114) 164/97 (119) Pulse Ox 92 99 98 O2 Delivery Nasal Cannula Nasal Cannula Nasal Cannula Nasal Cannula O2 Flow Rate 3.0 3.0 3.0 3.0 01/26/19 01/26/19 08:00 08:12 Pulse 80 B/P (MAP) 164/97 O2 Delivery Nasal Cannula O2 Flow Rate 3.0 Intake and Output 01/25/19 01/25/19 01/26/19 15:00 23:00 07:00 Intake Total 400 ml 700 ml 900 ml Balance 400 ml 700 ml 900 ml KIERA MOREIRA MD Jan 26, 2019 10:30
[2019-01-26 11:05] VITALS: BP 174/58
[2019-01-26] MEDS: IPRATRPIUM/ALBUTEROL 0.5/2.5MG 3 ML NEBU. NEB SCH ×4 (12:14→21:21)
[2019-01-26] MEDS: hydrALAZINE 20 MG/ML VIAL. IVP PRN ×2 (12:41→17:26)
[2019-01-26 15:00] VITALS: BP 181/77
--- NOTE | 2019-01-26 15:51 | NUR ---
SW following pt. Spoke with pt about PT/OT recommendation for SNU. Pt reports she lives home with spouse. Pt declined SNU and stated she will go home with [facility]. SW will arrange HH if ordered by Physcian. Pt also reported she has home 02.
[2019-01-26] MEDS: cefTRIAXone IV Push 1 GM VIAL. IVP SCH (16:21)
[2019-01-26 19:00] VITALS: BP 175/63
[2019-01-26] MEDS: MONTELUKAST SODIUM 10 MG TABLET. PO SCH (20:55)
[2019-01-26] MEDS: QUEtiapine 25 MG TABLET. PO SCH (20:55)
[2019-01-26] MEDS: TOPIRAMATE 25 MG TABLET. PO SCH (20:56)
[2019-01-26] MEDS: PATCH REMOVAL. MC SCH (21:00)
[2019-01-26] MEDS: INSULIN GLARGINE 300 UNITS/3 ML INSULN.PEN. SQ SCH (21:01)
[2019-01-26 22:19] VITALS: BP 124/58
[2019-01-27] VITALS (7 sets, daily range): BP systolic 141–193; BP diastolic 46–81
[2019-01-27] MEDS: IBUPROFEN 200 MG TABLET. PO PRN (03:13)
[2019-01-27 06:24] LABS: CALCIUM 7.6 mg/dL (8.5-10.1); CREATININE 1.9 mg/dL (0.6-1.0); PHOSPHORUS 2.7 mg/dL (2.6-4.7); POTASSIUM 3.5 mmol/L (3.5-5.1)
[2019-01-27] MEDS: IPRATRPIUM/ALBUTEROL 0.5/2.5MG 3 ML NEBU. NEB SCH ×4 (07:40→20:33)
--- NOTE | 2019-01-27 07:41 | PDOC ---
PULMONARY PROGRESS NOTES Subjective sob better, has cough, has nasal congestion, has pain all over Vitals Vital Signs Date Time Temp Pulse Resp B/P (MAP) Pulse Ox O2 Delivery O2 Flow Rate FiO2 01/27/19 03:00 98.3 102 19 145/55 (85) 97 Nasal Cannula 3.0 98.3 ROS: No Nausea General: Alert, No acute distress Lungs: Crackles, Other Cardiovascular: S1, S2 Abdomen: Soft, Non-tender Neuro Exam: Alert Extremities: Other (=edema) Skin: Warm Labs Laboratory Tests Test 01/25/19 11:34 01/25/19 16:52 01/25/19 17:50 01/25/19 21:11 Glucose (Fingerstick) 290 mg/dL (70-99) 231 mg/dL (70-99) 240 mg/dL (70-99) Potassium Level 4.4 mmol/L (3.5-5.1) Test 01/26/19 07:00 01/26/19 07:59 01/26/19 11:53 01/26/19 16:32 White Blood Count 6.4 x10^3/uL (4.0-11.0) Red Blood Count 3.25 x10^6/uL (3.50-5.40) Hemoglobin 9.2 g/dL (12.0-15.5) Hematocrit 28.7 % (36.0-47.0) Mean Corpuscular Volume 88 fL (79-100) Mean Corpuscular Hemoglobin 28 pg (25-35) Mean Corpuscular Hemoglobin Concent 32 g/dL (31-37) Red Cell Distribution Width 15.0 % (11.5-14.5) Platelet Count 132 x10^3/uL (140-400) Neutrophils (%) (Auto) 82 % (31-73) Lymphocytes (%) (Auto) 13 % (24-48) Monocytes (%) (Auto) 5 % (0-9) Eosinophils (%) (Auto) 0 % (0-3) Basophils (%) (Auto) 0 % (0-3) Neutrophils # (Auto) 5.3 x10^3uL (1.8-7.7) Lymphocytes # (Auto) 0.8 x10^3/uL (1.0-4.8) Monocytes # (Auto) 0.3 x10^3/uL (0.0-1.1) Eosinophils # (Auto) 0.0 x10^3/uL (0.0-0.7) Basophils # (Auto) 0.0 x10^3/uL (0.0-0.2) Sodium Level 140 mmol/L (136-145) Potassium Level 4.4 mmol/L (3.5-5.1) Chloride Level 104 mmol/L (98-107) Carbon Dioxide Level 32 mmol/L (21-32) Anion Gap 4 (6-14) Blood Urea Nitrogen 37 mg/dL (7-20) Creatinine 1.8 mg/dL (0.6-1.0) Estimated GFR (Cockcroft-Gault) 28.7 Glucose Level 275 mg/dL (70-99) Calcium Level 7.4 mg/dL (8.5-10.1) Phosphorus Level 3.2 mg/dL (2.6-4.7) Albumin 2.9 g/dL (3.4-5.0) Glucose (Fingerstick) 256 mg/dL (70-99) 266 mg/dL (70-99) 157 mg/dL (70-99) Test 01/26/19 20:44 01/27/19 05:55 Glucose (Fingerstick) 230 mg/dL (70-99) Sodium Level 142 mmol/L (136-145) Potassium Level 3.5 mmol/L (3.5-5.1) Chloride Level 102 mmol/L (98-107) Carbon Dioxide Level 32 mmol/L (21-32) Anion Gap 8 (6-14) Blood Urea Nitrogen 40 mg/dL (7-20) Creatinine 1.9 mg/dL (0.6-1.0) Estimated GFR (Cockcroft-Gault) 27.0 Glucose Level 193 mg/dL (70-99) Calcium Level 7.6 mg/dL (8.5-10.1) Phosphorus Level 2.7 mg/dL (2.6-4.7) Albumin 3.0 g/dL (3.4-5.0) Laboratory Tests Test 01/26/19 07:59 01/26/19 11:53 01/26/19 16:32 01/26/19 20:44 Glucose (Fingerstick) 256 mg/dL (70-99) 266 mg/dL (70-99) 157 mg/dL (70-99) 230 mg/dL (70-99) Test 01/27/19 05:55 Sodium Level 142 mmol/L (136-145) Potassium Level 3.5 mmol/L (3.5-5.1) Chloride Level 102 mmol/L (98-107) Carbon Dioxide Level 32 mmol/L (21-32) Anion Gap 8 (6-14) Blood Urea Nitrogen 40 mg/dL (7-20) Creatinine 1.9 mg/dL (0.6-1.0) Estimated GFR (Cockcroft-Gault) 27.0 Glucose Level 193 mg/dL (70-99) Calcium Level 7.6 mg/dL (8.5-10.1) Phosphorus Level 2.7 mg/dL (2.6-4.7) Albumin 3.0 g/dL (3.4-5.0) Medications Active Scripts Medications Dose Route/Sig Max Daily Dose Days Date Category Lidocaine 1 Each Adh..patch 1 Patch TD QHS 30 08/23/18 Rx Senna-Time S Tablet (Sennosides/Docusate Sodium) 1 Each Tablet 1 Tab PO BID 14 08/23/18 Rx Levemir Flextouch (Insulin Detemir) 100 Unit/1 Ml Insuln.pen 18 Units SQ QHS 10/17/15 Rx Novolog Flexpen (Insulin Aspart) 100 Unit/1 Ml Insuln.pen 10 Units SQ TIDAC 10/17/15 Rx Topamax (Topiramate) 25 Mg Tablet 25 Mg PO HS 03/18/15 Rx Wellbutrin Sr (Bupropion Hcl) 150 Mg Tablet.er 1 Tab PO BID 03/11/15 Reported Aspirin 81 Mg Tab.chew 1 Tab PO DAILY 03/11/15 Reported Montelukast Sodium Tablet (Montelukast Sodium) 10 Mg Tablet 10 Mg PO HS 03/11/15 Reported Combivent Respimat Inhal (Ipratropium/Albuterol Sulfate) 4 Gm Aer.w.adap 2 Inh IH QID 11/28/14 Rx Lasix (Furosemide) 40 Mg Tablet 1 Tab PO DAILY 10/25/14 Rx Aldactone (Spironolactone) 25 Mg Tablet 25 Mg PO DAILY 10/25/14 Rx Klor-Con M20 (Potassium Chloride) 20 Meq Tablet.er 40 Meq PO DAILY 10/25/14 Rx Nystop (Nystatin) 1 Omid Omid 1 Omid TP BID PRN 10/25/14 Rx [Aspirin] 325 MG Tablet.dr 325 Mg PO DAILYWBKFT 10/25/14 Rx Carvedilol (Carvedilol) 6.25 Mg Tablet 6.25 Mg PO BIDWMEALS 10/22/14 Reported Pantoprazole Sodium 40 Mg Tablet.dr 40 Mg PO DAILY 10/22/14 Reported Comments echo reviewed The left ventricular systolic function is normal. The Ejection Fraction is 55-60%. There is normal LV segmental wall motion. Mild mitral regurgitation. Mild tricuspid regurgitation. The PA pressure was estimated at 45 mmHg. There is no evidence of significant pericardial effusion. Impression . IMPRESSION: 1. Acute on chronic respiratory failure, multifactorial in etiology including acute exacerbation of chronic obstructive pulmonary disease, acute diastolic congestive heart failure, ?acute bronchitis versus others. 2. ?Sepsis. 3. Acute exacerbation of chronic obstructive pulmonary disease. 4. Acute diastolic congestive heart failure. 5. Obesity. 6. Excessive daytime sleepiness and snoring, probable obstructive sleep apnea-hypopnea syndrome. 7. Acute kidney injury, chronic kidney disease. 8. Diabetes mellitus. 9. Gastroesophageal reflux disease. 10. Ex-smoker. Plan . PLAN AND RECOMMENDATIONS: 1. Titrate FiO2 to keep O2 saturation 90-91%. 2. Continue bronchodilator. 3. change Solu-Medrol to prednisone 40 mg daily 4. Continue Singulair. 5. Continue antibiotic. 6. Lovenox for DVT prophylaxis. 7. fu Lower extremity venous Doppler. 8. Protonix for stress ulcer prophylaxis. 9. Title Supervisor consulted. 10. Echocardiogram reviewed. 11. I do recommend a sleep study as an outpatient if not done. discussed w pt, rn DEBBIE SEGUNDO MD Jan 27, 2019 07:41
--- NOTE | 2019-01-27 09:06 | RAD ---
Lumbar spine 5 views. HISTORY: Lumbar radiculopathy 5 views were taken of the lumbar spine including both obliques. There is mild scoliosis. There is not evidence of spondylolysis on the oblique views. There is degenerative disc disease with disc space narrowing at L3-4, L4-5 and L5-S1. There is no abnormal subluxation in the lower lumbar spine. There is slight retrolisthesis of L2 relative to L3. There is facet arthritis in the lower lumbar spine. IMPRESSION: 1. Degenerative disc disease and degenerative changes in the lumbar spine. 2. Mild scoliosis.. Electronically signed by: Pablo De Leon MD (01/27/2019 9:04 AM) [facility]
--- NOTE | 2019-01-27 09:10 | PDOC ---
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 There is moderate to severe narrowing of the left neural foramen. Laminectomy is apparent on the left side hyperkalemia There is degenerative disc disease with disc space narrowing at L3-4, L4-5 and L5-S1. There is no abnormal subluxation in the lower lumbar spine. There is slight retrolisthesis of L2 relative to L3. There is facet arthritis in the lower lumbar spine. CKD stage 3-4 MUKESH 01/26 states low back pain is just intolerable will order mri l/s plan: gabapentin 100mg po tid buspar 10mg po bid no narcotics due to hypercapnea, SEVERE consult pulm IV ROCEPHIN, VANC in er, d/c vanc due to ckd bipap at night, pt refuses. on NC duoneb, QID insulin to lantus 15u qhs, aspart 5u tid, ssi cough meds dvt ppx PTOT abdominal binder when up consulted dr johnson IV STEROIDS, taper iv fluid support nephrology consult MRI L/S abg 01/28 46 min pt exam, chart review,> 50% of time with pt exam, chart review, pt care coordination AT HIGH RISK OF PULM ARREST, DUE TO BIPAP NONCOMPLIANCE PER MY CHART REVIEW Vitals Vitals Vital Signs Date Time Temp Pulse Resp B/P (MAP) Pulse Ox O2 Delivery O2 Flow Rate FiO2 01/27/19 07:45 97.9 87 17 164/46 (85) 97 Nasal Cannula 3.0 97.9 Physical Exam General: Alert, Oriented X3, Cooperative, mild distress, moderate distress Heart: Regular rate, Normal S1, Normal S2, No murmurs Lungs: Crackles, Other Abdomen: Normal bowel sounds, Soft, Other (very obese) Extremities: No clubbing, No cyanosis Skin: No breakdown, No significant lesion Labs LABS Lumbar spine 5 views. HISTORY: Lumbar radiculopathy 5 views were taken of the lumbar spine including both obliques. There is mild scoliosis. There is not evidence of spondylolysis on the oblique views. There is degenerative disc disease with disc space narrowing at L3-4, L4-5 and L5-S1. There is no abnormal subluxation in the lower lumbar spine. There is slight retrolisthesis of L2 relative to L3. There is facet arthritis in the lower lumbar spine. IMPRESSION: 1. Degenerative disc disease and degenerative changes in the lumbar spine. 2. Mild scoliosis.. Electronically signed by: Pablo De Leon MD (01/27/2019 9:04 AM) [facility] Laboratory Tests Test 01/26/19 11:53 01/26/19 16:32 01/26/19 20:44 01/27/19 05:55 Glucose (Fingerstick) 266 mg/dL (70-99) 157 mg/dL (70-99) 230 mg/dL (70-99) Sodium Level 142 mmol/L (136-145) Potassium Level 3.5 mmol/L (3.5-5.1) Chloride Level 102 mmol/L (98-107) Carbon Dioxide Level 32 mmol/L (21-32) Anion Gap 8 (6-14) Blood Urea Nitrogen 40 mg/dL (7-20) Creatinine 1.9 mg/dL (0.6-1.0) Estimated GFR (Cockcroft-Gault) 27.0 Glucose Level 193 mg/dL (70-99) Calcium Level 7.6 mg/dL (8.5-10.1) Phosphorus Level 2.7 mg/dL (2.6-4.7) Albumin 3.0 g/dL (3.4-5.0) Test 01/27/19 07:49 Glucose (Fingerstick) 168 mg/dL (70-99) Assessment and Plan Assessmemt and Plan Problems Medical Problems: (1) Acute and chronic respiratory failure ([id number]) Status: Acute (2) Anxiety Status: Acute (3) Hyperglycemia Status: Acute (4) Renal failure Status: Acute Comment Review of Relevant I have reviewed the following items kylee (where applicable) has been applied. Labs Laboratory Tests Test 01/25/19 11:34 01/25/19 16:52 01/25/19 17:50 01/25/19 21:11 Glucose (Fingerstick) 290 mg/dL (70-99) 231 mg/dL (70-99) 240 mg/dL (70-99) Potassium Level 4.4 mmol/L (3.5-5.1) Test 01/26/19 07:00 01/26/19 07:59 01/26/19 11:53 01/26/19 16:32 White Blood Count 6.4 x10^3/uL (4.0-11.0) Red Blood Count 3.25 x10^6/uL (3.50-5.40) Hemoglobin 9.2 g/dL (12.0-15.5) Hematocrit 28.7 % (36.0-47.0) Mean Corpuscular Volume 88 fL (79-100) Mean Corpuscular Hemoglobin 28 pg (25-35) Mean Corpuscular Hemoglobin Concent 32 g/dL (31-37) Red Cell Distribution Width 15.0 % (11.5-14.5) Platelet Count 132 x10^3/uL (140-400) Neutrophils (%) (Auto) 82 % (31-73) Lymphocytes (%) (Auto) 13 % (24-48) Monocytes (%) (Auto) 5 % (0-9) Eosinophils (%) (Auto) 0 % (0-3) Basophils (%) (Auto) 0 % (0-3) Neutrophils # (Auto) 5.3 x10^3uL (1.8-7.7) Lymphocytes # (Auto) 0.8 x10^3/uL (1.0-4.8) Monocytes # (Auto) 0.3 x10^3/uL (0.0-1.1) Eosinophils # (Auto) 0.0 x10^3/uL (0.0-0.7) Basophils # (Auto) 0.0 x10^3/uL (0.0-0.2) Sodium Level 140 mmol/L (136-145) Potassium Level 4.4 mmol/L (3.5-5.1) Chloride Level 104 mmol/L (98-107) Carbon Dioxide Level 32 mmol/L (21-32) Anion Gap 4 (6-14) Blood Urea Nitrogen 37 mg/dL (7-20) Creatinine 1.8 mg/dL (0.6-1.0) Estimated GFR (Cockcroft-Gault) 28.7 Glucose Level 275 mg/dL (70-99) Calcium Level 7.4 mg/dL (8.5-10.1) Phosphorus Level 3.2 mg/dL (2.6-4.7) Albumin 2.9 g/dL (3.4-5.0) Glucose (Fingerstick) 256 mg/dL (70-99) 266 mg/dL (70-99) 157 mg/dL (70-99) Test 01/26/19 20:44 01/27/19 05:55 01/27/19 07:49 Glucose (Fingerstick) 230 mg/dL (70-99) 168 mg/dL (70-99) Sodium Level 142 mmol/L (136-145) Potassium Level 3.5 mmol/L (3.5-5.1) Chloride Level 102 mmol/L (98-107) Carbon Dioxide Level 32 mmol/L (21-32) Anion Gap 8 (6-14) Blood Urea Nitrogen 40 mg/dL (7-20) Creatinine 1.9 mg/dL (0.6-1.0) Estimated GFR (Cockcroft-Gault) 27.0 Glucose Level 193 mg/dL (70-99) Calcium Level 7.6 mg/dL (8.5-10.1) Phosphorus Level 2.7 mg/dL (2.6-4.7) Albumin 3.0 g/dL (3.4-5.0) Laboratory Tests Test 01/26/19 11:53 01/26/19 16:32 01/26/19 20:44 01/27/19 05:55 Glucose (Fingerstick) 266 mg/dL (70-99) 157 mg/dL (70-99) 230 mg/dL (70-99) Sodium Level 142 mmol/L (136-145) Potassium Level 3.5 mmol/L (3.5-5.1) Chloride Level 102 mmol/L (98-107) Carbon Dioxide Level 32 mmol/L (21-32) Anion Gap 8 (6-14) Blood Urea Nitrogen 40 mg/dL (7-20) Creatinine 1.9 mg/dL (0.6-1.0) Estimated GFR (Cockcroft-Gault) 27.0 Glucose Level 193 mg/dL (70-99) Calcium Level 7.6 mg/dL (8.5-10.1) Phosphorus Level 2.7 mg/dL (2.6-4.7) Albumin 3.0 g/dL (3.4-5.0) Test 01/27/19 07:49 Glucose (Fingerstick) 168 mg/dL (70-99) Microbiology 01/23/19 Blood Culture - Preliminary, Resulted NO GROWTH AFTER 3 DAYS Medications Current Medications Albuterol/ Ipratropium (Duoneb) 3 ml 1X ONCE NEB Last administered on at 08:04; Start 01/23/19 at 08:00; Stop 01/23/19 at 08:03; Status DC Methylprednisolone Sodium Succinate (SOLU-Medrol 125MG VIAL) 125 mg 1X ONCE IV Last administered on 01/23/19at 08:25; Start 01/23/19 at 08:00; Stop 01/23/19 at 08:03; Status DC Oxycodone/ Acetaminophen (Percocet 5/325) 1 tab 1X ONCE PO Last administered on 01/23/19at 09:01; Start 01/23/19 at 09:00; Stop 01/23/19 at 09:01; Status DC Ceftriaxone Sodium (Rocephin) 1 gm 1X ONCE IVP Last administered on 01/23/19at 09:00; Start 01/23/19 at 09:00; Stop 01/23/19 at 09:01; Status DC Magnesium Sulfate 50 ml @ 25 mls/hr 1X ONCE IV Last administered on 01/23/19at 15:06; Start 01/23/19 at 09:15; Stop 01/23/19 at 11:14; Status DC Sodium Chloride 1,000 ml @ 1,000 mls/hr 1X ONCE IV Last administered on at 15:07; Start 01/23/19 at 09:15; Stop 01/23/19 at 10:14; Status DC Vancomycin HCl 2 gm/Sodium Chloride 500 ml @ 250 mls/hr 1X ONCE IV Last administered on 01/23/19at 09:52; Start 01/23/19 at 09:30; Stop 01/23/19 at 11:29; Status DC Sodium Chloride 1,000 ml @ 150 mls/hr Q6H40M IV Last administered on 4/10/ 19at 06:30; Start 01/23/19 at 09:30; Stop 01/24/19 at 09:29; Status DC Aspirin (Children'S Aspirin) 81 mg DAILY PO Last administered on 01/26/19 08: 16; Start 01/23/19 at 11:00 Bupropion HCl (Wellbutrin Sr) 150 mg BID PO Last administered on 01/26/19 20: 55; Start 01/23/19 at 11:00 Carvedilol (Coreg) 6.25 mg BIDWMEALS PO Last administered on 01/26/19 16:47; Start 01/23/19 at 11:00 Furosemide (Lasix) 40 mg DAILY PO Last administered on 01/26/19 08:11; Start 01/23/19 at 11:00 Nystatin (Nystop) 1 omid PRN BID PRN TP Yeast infection; Start 01/23/19 at 09:30 Potassium Chloride (Klor-Con) 40 meq DAILY PO Last administered on 01/24/19 08 :51; Start 01/23/19 at 11:00; Stop 01/25/19 at 14:17; Status DC Senna/Docusate Sodium (Senna Plus) 1 tab BID PO Last administered on 01/25/19 08:51; Start 01/23/19 at 11:00 Insulin Human Lispro (HumaLOG) 10 units TIDWMEALS SQ Last administered on 17:36; Start 01/23/19 at 12:00 Insulin Glargine (Lantus) 18 units QHS SQ Last administered on 01/26/19 21:01 ; Start 01/23/19 at 21:00 Lidocaine (Lidoderm) 1 patch QHS TD ; Start 01/23/19 at 21:00; Stop 01/23/19 at 21 :00; Status DC Montelukast Sodium (Singulair) 10 mg QHS PO Last administered on 01/26/19 20: 55; Start 01/23/19 at 21:00 Spironolactone (Aldactone) 25 mg DAILY PO Last administered on 01/24/19 08:51 ; Start 01/23/19 at 11:00; Stop 01/25/19 at 14:18; Status DC Topiramate (Topamax) 25 mg QHS PO Last administered on 01/26/19at 20:56; Start 01/23/19 at 21:00 Non-Formulary Medication ([Aspirin] ) 325 mg DAILYWBKFT PO ; Start 01/24/19 at 08:00; Status UNV Pantoprazole Sodium (Protonix) 40 mg DAILYAC PO Last administered on 01/26/19at 08:12; Start 01/23/19 at 11:00 Non-Formulary Medication (Ipratropium/ Albuterol Sulfate (Combivent Respimat Inhal)) 2 inh QID IH ; Start 01/23/19 at 13:00; Status UNV Albuterol/ Ipratropium (Duoneb) 3 ml RTQID NEB Last administered on 01/27/19at 07:40; Start 01/23/19 at 12:00 Insulin Human Lispro (HumaLOG) 0-5 UNITS TIDWMEALS SQ Last administered on 01/26at 17:49; Start 01/23/19 at 12:00 Dextrose (Dextrose 50%-Water Syringe) 12.5 gm PRN Q15MIN PRN IV SEE COMMENTS; Start 01/23/19 at 10:15 Lidocaine/Sodium Bicarbonate (Buffered Lidocaine 1%) 3 ml STK-MED ONCE .ROUTE ; Start 01/23/19 at 13:44; Stop 01/23/19 at 13:45; Status DC Lidocaine/Sodium Bicarbonate (Buffered Lidocaine 1%) 3 ml 1X ONCE INJ Last administered on 01/23/19at 14:01; Start 01/23/19 at 14:00; Stop 01/23/19 at 14:01; Status DC Lidocaine (Lidoderm) 1 patch DAILY TD Last administered on 01/26/19at 08:15; Start 01/23/19 at 18:00 Miscellaneous (Lidoderm Patch Removal) 1 ea QHS MC Last administered on at 21:00; Start 01/23/19 at 21:00 Oxycodone/ Acetaminophen (Percocet 5/325) 1 tab PRN Q6HRS PRN PO PAIN Last administered on 01/23/19at 23:17; Start 01/23/19 at 22:45 Quetiapine Fumarate (SEROquel) 25 mg QHS PO ; Start 01/24/19 at 21:00; Stop 08/04 at 21:00; Status DC Quetiapine Fumarate (SEROquel) 25 mg QHS PO Last administered on 01/26/19at 20: 55; Start 01/23/19 at 23:00 Enoxaparin Sodium (Lovenox 60mg Syringe) 60 mg Q12HR SQ Last administered on 10/04at 20:56; Start 01/24/19 at 11:30 Magnesium Sulfate 50 ml @ 25 mls/hr 1X ONCE IV Last administered on 01/24/19at 17:05; Start 01/24/19 at 16:00; Stop 01/24/19 at 17:59; Status DC Ceftriaxone Sodium (Rocephin) 1 gm Q24H IVP Last administered on 01/26/19 16: 21; Start 01/24/19 at 16:00 Methylprednisolone Sodium Succinate (SOLU-Medrol 40MG VIAL) 80 mg Q8HRS IV Last administered on 01/25/19at 05:04; Start 01/24/19 at 17:00; Stop 01/25/19 at 11:55; Status DC Ibuprofen (Motrin) 600 mg PRN Q8HRS PRN PO INFLAMMATION Last administered on at 03:13; Start 01/24/19 at 23:15 Cyclobenzaprine HCl (Flexeril) 10 mg PRN Q12HR PRN PO MUSCLE SPASMS Last administered on 01/26/19at 16:48; Start 01/24/19 at 23:15 Buspirone HCl (Buspar) 10 mg BID PO Last administered on 01/26/19at 20:55; Start 01/25/19 at 11:00 Sodium Polystyrene Sulfonate (Kayexalate) 30 gm 1X ONCE PO Last administered on 01/25/19at 11:19; Start 01/25/19 at 11:00; Stop 01/25/19 at 11:03; Status DC Methylprednisolone Sodium Succinate (SOLU-Medrol 40MG VIAL) 40 mg Q8HRS IV Last administered on 01/26/19at 06:23; Start 01/25/19 at 14:00; Stop 01/26/19 at 07:00; Status DC Sodium Polystyrene Sulfonate (Kayexalate) 30 gm 1X ONCE PO ; Start 01/25/19 at 14:30; Stop 01/25/19 at 14:31; Status DC Lactobacillus Rhamnosus (Culturelle) 1 cap BID PO Last administered on at 20:55; Start 01/25/19 at 21:00 Hydralazine HCl (Apresoline Inj) 10 mg PRN Q6HRS PRN IVP ELEVATED BP, SEE COMMENTS Last administered on 01/26/19at 12:41; Start 01/25/19 at 17:15; Stop 10/04 at 17:10; Status DC Gabapentin (Neurontin) 100 mg TID@0900,1300,1800 PO Last administered on at 17:26; Start 01/25/19 at 18:00 Gabapentin (Neurontin) 200 mg QHS PO Last administered on 01/26/19at 20:55; Start 01/25/19 at 21:00 Methylprednisolone Sodium Succinate (SOLU-Medrol 40MG VIAL) 40 mg Q12HR IV Last administered on 01/26/19at 21:00; Start 01/26/19 at 21:00 Hydralazine HCl (Apresoline Inj) 10 mg PRN Q4HRS PRN IVP ELEVATED BP, SEE COMMENTS Last administered on 01/26/19at 17:26; Start 01/26/19 at 17:15 Active Scripts Active Lidocaine 1 Each Adh..patch 1 Patch TD QHS 30 Days Senna-Time S Tablet (Sennosides/Docusate Sodium) 1 Each Tablet 1 Tab PO BID 14 Days Levemir Flextouch (Insulin Detemir) 100 Unit/1 Ml Insuln.pen 18 Units SQ QHS Novolog Flexpen (Insulin Aspart) 100 Unit/1 Ml Insuln.pen 10 Units SQ TIDAC Topamax (Topiramate) 25 Mg Tablet 25 Mg PO HS Combivent Respimat Inhal (Ipratropium/Albuterol Sulfate) 4 Gm Aer.w.adap 2 Inh IH QID Lasix (Furosemide) 40 Mg Tablet 1 Tab PO DAILY Aldactone (Spironolactone) 25 Mg Tablet 25 Mg PO DAILY Klor-Con M20 (Potassium Chloride) 20 Meq Tablet.er 40 Meq PO DAILY Nystop (Nystatin) 1 Omid Omid 1 Omid TP BID PRN [Aspirin] 325 MG Tablet. 325 Mg PO DAILYWBKFT Reported Wellbutrin Sr (Bupropion Hcl) 150 Mg Tablet.er 1 Tab PO BID Aspirin 81 Mg Tab.chew 1 Tab PO DAILY Montelukast Sodium Tablet (Montelukast Sodium) 10 Mg Tablet 10 Mg PO HS Carvedilol (Carvedilol) 6.25 Mg Tablet 6.25 Mg PO BIDWMEALS Pantoprazole Sodium 40 Mg Tablet.dr 40 Mg PO DAILY Vitals/I & O Vital Sign - Last 24 Hours 01/26/19 01/26/19 01/26/19 01/26/19 11:05 12:15 12:41 15:00 Temp 98.0 98.4 98.0 98.4 Pulse 78 78 85 Resp 20 20 B/P (MAP) 174/58 (96) 174/58 181/77 (111) Pulse Ox 95 90 98 O2 Delivery Nasal Cannula Nasal Cannula Nasal Cannula O2 Flow Rate 3.0 3.0 3.0 01/26/19 01/26/19 01/26/19 01/26/19 16:33 16:47 17:26 19:00 Temp 98.3 98.3 Pulse 85 85 83 Resp 21 B/P (MAP) 181/77 181/77 175/63 (100) Pulse Ox 98 O2 Delivery Nasal Cannula Room Air O2 Flow Rate 3.0 01/26/19 01/26/19 01/26/19 01/27/19 20:06 21:23 22:19 03:00 Temp 98.4 98.3 98.4 98.3 Pulse 108 102 Resp B/P (MAP) 124/58 (80) 145/55 (85) Pulse Ox 98 91 97 O2 Delivery Nasal Cannula Nasal Cannula Nasal Cannula Nasal Cannula O2 Flow Rate 3.0 3.0 3.0 3.0 01/27/19 01/27/19 07:42 07:45 Temp 97.9 97.9 Pulse 87 Resp 17 B/P (MAP) 164/46 (85) Pulse Ox 96 97 O2 Delivery Nasal Cannula Nasal Cannula O2 Flow Rate 3.0 3.0 Intake and Output 01/26/19 01/26/19 01/27/19 15:00 23:00 07:00 Intake Total 400 ml 300 ml 300 ml Output Total 300 ml Balance 400 ml 300 ml 0 ml ACE ZELAYA MD Jan 27, 2019 09:10
[2019-01-27] MEDS: INSULIN LISPRO 300 UNITS/3 ML INSULN.PEN. SQ SCH ×6 (09:31→17:17)
[2019-01-27] MEDS: busPIRone 10 MG TABLET. PO SCH ×2 (09:33→21:43)
[2019-01-27] MEDS: GABAPENTIN 100 MG CAPSULE. PO SCH ×4 (09:33→21:43)
[2019-01-27] MEDS: LACTOBACILLUS RHAMNOSUS GG 1 CAPSULE. PO SCH ×2 (09:33→21:44)
[2019-01-27] MEDS: SENNOSIDES/DOCUSATE 8.6/50MG TABLET. PO SCH ×2 (09:33→21:00)
[2019-01-27] MEDS: methylPREDNISolone SOD SUCC PF 40 MG/ML VIAL. IV SCH (09:34)
[2019-01-27] MEDS: buPROPion SR 150 MG TABLET.SA PO SCH ×2 (09:34→21:44)
[2019-01-27] MEDS: LIDOCAINE (700MG/PATCH) PATCH. TD SCH (09:35)
[2019-01-27] MEDS: ASPIRIN CHEWABLE 81 MG TABLET. PO SCH (09:36)
[2019-01-27] MEDS: FUROSEMIDE 40 MG TABLET. PO SCH (09:36)
[2019-01-27] MEDS: CARVEDILOL 6.25 MG TABLET. PO SCH ×2 (09:36→17:08)
[2019-01-27] MEDS: PANTOPRAZOLE 40 MG TABLET.DR. PO SCH (09:36)
--- NOTE | 2019-01-27 09:58 | PDOC ---
PROGRESS NOTES Subjective Subjective She is resting comfortably in bed. She refused physical therapy yesterday as she is missing her narcotic pain medication dealing with her respiratory failure. Objective Objective Vital Signs Date Time Temp Pulse Resp B/P (MAP) Pulse Ox O2 Delivery O2 Flow Rate FiO2 01/27/19 09:36 87 164/46 01/27/19 07:45 97.9 17 97 Nasal Cannula 3.0 97.9 Intake and Output 01/27/19 07:00 Intake Total 1000 ml Output Total 300 ml Balance 700 ml Intake Oral 1000 ml Output Urine Total 300 ml # Voids 6 Physical Exam Physical Exam X-rays of lumbar spine revealed no significant disc degeneration but facet degenerative changes were noted. She remains independent with bed mobility and transfers. Assessment Assessment Problems Medical Problems: (1) Acute and chronic respiratory failure ([id number]) Status: Acute (2) Anxiety Status: Acute (3) Hyperglycemia Status: Acute (4) Renal failure Status: Acute Plan Plan of Long Term when medically stable. Comment Review of Relevant I have reviewed the following items kylee (where applicable) has been applied. Labs Laboratory Tests Test 01/25/19 11:34 01/25/19 16:52 01/25/19 17:50 01/25/19 21:11 Glucose (Fingerstick) 290 mg/dL (70-99) 231 mg/dL (70-99) 240 mg/dL (70-99) Potassium Level 4.4 mmol/L (3.5-5.1) Test 01/26/19 07:00 01/26/19 07:59 01/26/19 11:53 01/26/19 16:32 White Blood Count 6.4 x10^3/uL (4.0-11.0) Red Blood Count 3.25 x10^6/uL (3.50-5.40) Hemoglobin 9.2 g/dL (12.0-15.5) Hematocrit 28.7 % (36.0-47.0) Mean Corpuscular Volume 88 fL (79-100) Mean Corpuscular Hemoglobin 28 pg (25-35) Mean Corpuscular Hemoglobin Concent 32 g/dL (31-37) Red Cell Distribution Width 15.0 % (11.5-14.5) Platelet Count 132 x10^3/uL (140-400) Neutrophils (%) (Auto) 82 % (31-73) Lymphocytes (%) (Auto) 13 % (24-48) Monocytes (%) (Auto) 5 % (0-9) Eosinophils (%) (Auto) 0 % (0-3) Basophils (%) (Auto) 0 % (0-3) Neutrophils # (Auto) 5.3 x10^3uL (1.8-7.7) Lymphocytes # (Auto) 0.8 x10^3/uL (1.0-4.8) Monocytes # (Auto) 0.3 x10^3/uL (0.0-1.1) Eosinophils # (Auto) 0.0 x10^3/uL (0.0-0.7) Basophils # (Auto) 0.0 x10^3/uL (0.0-0.2) Sodium Level 140 mmol/L (136-145) Potassium Level 4.4 mmol/L (3.5-5.1) Chloride Level 104 mmol/L (98-107) Carbon Dioxide Level 32 mmol/L (21-32) Anion Gap 4 (6-14) Blood Urea Nitrogen 37 mg/dL (7-20) Creatinine 1.8 mg/dL (0.6-1.0) Estimated GFR (Cockcroft-Gault) 28.7 Glucose Level 275 mg/dL (70-99) Calcium Level 7.4 mg/dL (8.5-10.1) Phosphorus Level 3.2 mg/dL (2.6-4.7) Albumin 2.9 g/dL (3.4-5.0) Glucose (Fingerstick) 256 mg/dL (70-99) 266 mg/dL (70-99) 157 mg/dL (70-99) Test 01/26/19 20:44 01/27/19 05:55 01/27/19 07:49 Glucose (Fingerstick) 230 mg/dL (70-99) 168 mg/dL (70-99) Sodium Level 142 mmol/L (136-145) Potassium Level 3.5 mmol/L (3.5-5.1) Chloride Level 102 mmol/L (98-107) Carbon Dioxide Level 32 mmol/L (21-32) Anion Gap 8 (6-14) Blood Urea Nitrogen 40 mg/dL (7-20) Creatinine 1.9 mg/dL (0.6-1.0) Estimated GFR (Cockcroft-Gault) 27.0 Glucose Level 193 mg/dL (70-99) Calcium Level 7.6 mg/dL (8.5-10.1) Phosphorus Level 2.7 mg/dL (2.6-4.7) Albumin 3.0 g/dL (3.4-5.0) Laboratory Tests Test 01/26/19 11:53 01/26/19 16:32 01/26/19 20:44 01/27/19 05:55 Glucose (Fingerstick) 266 mg/dL (70-99) 157 mg/dL (70-99) 230 mg/dL (70-99) Sodium Level 142 mmol/L (136-145) Potassium Level 3.5 mmol/L (3.5-5.1) Chloride Level 102 mmol/L (98-107) Carbon Dioxide Level 32 mmol/L (21-32) Anion Gap 8 (6-14) Blood Urea Nitrogen 40 mg/dL (7-20) Creatinine 1.9 mg/dL (0.6-1.0) Estimated GFR (Cockcroft-Gault) 27.0 Glucose Level 193 mg/dL (70-99) Calcium Level 7.6 mg/dL (8.5-10.1) Phosphorus Level 2.7 mg/dL (2.6-4.7) Albumin 3.0 g/dL (3.4-5.0) Test 01/27/19 07:49 Glucose (Fingerstick) 168 mg/dL (70-99) Microbiology 01/23/19 Blood Culture - Preliminary, Resulted NO GROWTH AFTER 4 DAYS Medications Current Medications Albuterol/ Ipratropium (Duoneb) 3 ml 1X ONCE NEB Last administered on at 08:04; Start 01/23/19 at 08:00; Stop 01/23/19 at 08:03; Status DC Methylprednisolone Sodium Succinate (SOLU-Medrol 125MG VIAL) 125 mg 1X ONCE IV Last administered on 01/23/19at 08:25; Start 01/23/19 at 08:00; Stop 01/23/19 at 08:03; Status DC Oxycodone/ Acetaminophen (Percocet 5/325) 1 tab 1X ONCE PO Last administered on 01/23/19at 09:01; Start 01/23/19 at 09:00; Stop 01/23/19 at 09:01; Status DC Ceftriaxone Sodium (Rocephin) 1 gm 1X ONCE IVP Last administered on 01/23/19at 09:00; Start 01/23/19 at 09:00; Stop 01/23/19 at 09:01; Status DC Magnesium Sulfate 50 ml @ 25 mls/hr 1X ONCE IV Last administered on 01/23/19at 15:06; Start 01/23/19 at 09:15; Stop 01/23/19 at 11:14; Status DC Sodium Chloride 1,000 ml @ 1,000 mls/hr 1X ONCE IV Last administered on at 15:07; Start 01/23/19 at 09:15; Stop 01/23/19 at 10:14; Status DC Vancomycin HCl 2 gm/Sodium Chloride 500 ml @ 250 mls/hr 1X ONCE IV Last administered on 01/23/19at 09:52; Start 01/23/19 at 09:30; Stop 01/23/19 at 11:29; Status DC Sodium Chloride 1,000 ml @ 150 mls/hr Q6H40M IV Last administered on at 06:30; Start 01/23/19 at 09:30; Stop 01/24/19 at 09:29; Status DC Aspirin (Children'S Aspirin) 81 mg DAILY PO Last administered on 01/27/19at 09: 36; Start 01/23/19 at 11:00 Bupropion HCl (Wellbutrin Sr) 150 mg BID PO Last administered on 01/27/19 09: 34; Start 01/23/19 at 11:00 Carvedilol (Coreg) 6.25 mg BIDWMEALS PO Last administered on 01/27/19 09:36; Start 01/23/19 at 11:00 Furosemide (Lasix) 40 mg DAILY PO Last administered on 01/27/19 09:36; Start 01/23/19 at 11:00 Nystatin (Nystop) 1 omid PRN BID PRN TP Yeast infection; Start 01/23/19 at 09:30 Potassium Chloride (Klor-Con) 40 meq DAILY PO Last administered on 01/24/19at 08 :51; Start 01/23/19 at 11:00; Stop 01/25/19 at 14:17; Status DC Senna/Docusate Sodium (Senna Plus) 1 tab BID PO Last administered on 01/27/19 09:33; Start 01/23/19 at 11:00 Insulin Human Lispro (HumaLOG) 10 units TIDWMEALS SQ Last administered on 09:31; Start 01/23/19 at 12:00 Insulin Glargine (Lantus) 18 units QHS SQ Last administered on 01/26/19 21:01 ; Start 01/23/19 at 21:00 Lidocaine (Lidoderm) 1 patch QHS TD ; Start 01/23/19 at 21:00; Stop 01/23/19 at 21 :00; Status DC Montelukast Sodium (Singulair) 10 mg QHS PO Last administered on 01/26/19 20: 55; Start 01/23/19 at 21:00 Spironolactone (Aldactone) 25 mg DAILY PO Last administered on 01/24/19 08:51 ; Start 01/23/19 at 11:00; Stop 01/25/19 at 14:18; Status DC Topiramate (Topamax) 25 mg QHS PO Last administered on 01/26/19 20:56; Start 01/23/19 at 21:00 Non-Formulary Medication ([Aspirin] ) 325 mg DAILYWBKFT PO ; Start 01/24/19 at 08:00; Status UNV Pantoprazole Sodium (Protonix) 40 mg DAILYAC PO Last administered on 01/27/19 09:36; Start 01/23/19 at 11:00 Non-Formulary Medication (Ipratropium/ Albuterol Sulfate (Combivent Respimat Inhal)) 2 inh QID IH ; Start 01/23/19 at 13:00; Status UNV Albuterol/ Ipratropium (Duoneb) 3 ml RTQID NEB Last administered on 01/27/19 07:40; Start 01/23/19 at 12:00 Insulin Human Lispro (HumaLOG) 0-5 UNITS TIDWMEALS SQ Last administered on 01/27 09:32; Start 01/23/19 at 12:00 Dextrose (Dextrose 50%-Water Syringe) 12.5 gm PRN Q15MIN PRN IV SEE COMMENTS; Start 01/23/19 at 10:15 Lidocaine/Sodium Bicarbonate (Buffered Lidocaine 1%) 3 ml STK-MED ONCE .ROUTE ; Start 01/23/19 at 13:44; Stop 01/23/19 at 13:45; Status DC Lidocaine/Sodium Bicarbonate (Buffered Lidocaine 1%) 3 ml 1X ONCE INJ Last administered on 01/23/19at 14:01; Start 01/23/19 at 14:00; Stop 01/23/19 at 14:01; Status DC Lidocaine (Lidoderm) 1 patch DAILY TD Last administered on 01/27/19at 09:35; Start 01/23/19 at 18:00 Miscellaneous (Lidoderm Patch Removal) 1 ea QHS MC Last administered on at 21:00; Start 01/23/19 at 21:00 Oxycodone/ Acetaminophen (Percocet 5/325) 1 tab PRN Q6HRS PRN PO PAIN Last administered on 01/23/19at 23:17; Start 01/23/19 at 22:45 Quetiapine Fumarate (SEROquel) 25 mg QHS PO ; Start 01/24/19 at 21:00; Stop 08/04 at 21:00; Status DC Quetiapine Fumarate (SEROquel) 25 mg QHS PO Last administered on 01/26/19at 20: 55; Start 01/23/19 at 23:00 Enoxaparin Sodium (Lovenox 60mg Syringe) 60 mg Q12HR SQ Last administered on at 09:35; Start 01/24/19 at 11:30 Magnesium Sulfate 50 ml @ 25 mls/hr 1X ONCE IV Last administered on 01/24/19at 17:05; Start 01/24/19 at 16:00; Stop 01/24/19 at 17:59; Status DC Ceftriaxone Sodium (Rocephin) 1 gm Q24H IVP Last administered on 01/26/19at 16: 21; Start 01/24/19 at 16:00 Methylprednisolone Sodium Succinate (SOLU-Medrol 40MG VIAL) 80 mg Q8HRS IV Last administered on 01/25/19at 05:04; Start 01/24/19 at 17:00; Stop 01/25/19 at 11:55; Status DC Ibuprofen (Motrin) 600 mg PRN Q8HRS PRN PO INFLAMMATION Last administered on 03:13; Start 01/24/19 at 23:15 Cyclobenzaprine HCl (Flexeril) 10 mg PRN Q12HR PRN PO MUSCLE SPASMS Last administered on 01/26/19at 16:48; Start 01/24/19 at 23:15 Buspirone HCl (Buspar) 10 mg BID PO Last administered on 01/27/19 09:33; Start 01/25/19 at 11:00 Sodium Polystyrene Sulfonate (Kayexalate) 30 gm 1X ONCE PO Last administered on 01/25/19 11:19; Start 01/25/19 at 11:00; Stop 01/25/19 at 11:03; Status DC Methylprednisolone Sodium Succinate (SOLU-Medrol 40MG VIAL) 40 mg Q8HRS IV Last administered on 01/26/19 06:23; Start 01/25/19 at 14:00; Stop 01/26/19 at 07:00; Status DC Sodium Polystyrene Sulfonate (Kayexalate) 30 gm 1X ONCE PO ; Start 01/25/19 at 14:30; Stop 01/25/19 at 14:31; Status DC Lactobacillus Rhamnosus (Culturelle) 1 cap BID PO Last administered on 09:33; Start 01/25/19 at 21:00 Hydralazine HCl (Apresoline Inj) 10 mg PRN Q6HRS PRN IVP ELEVATED BP, SEE COMMENTS Last administered on 01/26/19at 12:41; Start 01/25/19 at 17:15; Stop 10/04 at 17:10; Status DC Gabapentin (Neurontin) 100 mg TID@0900,1300,1800 PO Last administered on 09:33; Start 01/25/19 at 18:00 Gabapentin (Neurontin) 200 mg QHS PO Last administered on 01/26/19at 20:55; Start 01/25/19 at 21:00 Methylprednisolone Sodium Succinate (SOLU-Medrol 40MG VIAL) 40 mg Q12HR IV Last administered on 01/27/19 09:34; Start 01/26/19 at 21:00 Hydralazine HCl (Apresoline Inj) 10 mg PRN Q4HRS PRN IVP ELEVATED BP, SEE COMMENTS Last administered on 01/26/19at 17:26; Start 01/26/19 at 17:15 Guaifenesin (Mucinex) 600 mg BID PO ; Start 01/27/19 at 21:00 Active Scripts Active Lidocaine 1 Each Adh..patch 1 Patch TD QHS 30 Days Senna-Time S Tablet (Sennosides/Docusate Sodium) 1 Each Tablet 1 Tab PO BID 14 Days Levemir Flextouch (Insulin Detemir) 100 Unit/1 Ml Insuln.pen 18 Units SQ QHS Novolog Flexpen (Insulin Aspart) 100 Unit/1 Ml Insuln.pen 10 Units SQ TIDAC Topamax (Topiramate) 25 Mg Tablet 25 Mg PO HS Combivent Respimat Inhal (Ipratropium/Albuterol Sulfate) 4 Gm Aer.w.adap 2 Inh IH QID Lasix (Furosemide) 40 Mg Tablet 1 Tab PO DAILY Aldactone (Spironolactone) 25 Mg Tablet 25 Mg PO DAILY Klor-Con M20 (Potassium Chloride) 20 Meq Tablet.er 40 Meq PO DAILY Nystop (Nystatin) 1 Omid Omid 1 Omid TP BID PRN [Aspirin] 325 MG Tablet. 325 Mg PO DAILYWBKFT Reported Wellbutrin Sr (Bupropion Hcl) 150 Mg Tablet.er 1 Tab PO BID Aspirin 81 Mg Tab.chew 1 Tab PO DAILY Montelukast Sodium Tablet (Montelukast Sodium) 10 Mg Tablet 10 Mg PO HS Carvedilol (Carvedilol) 6.25 Mg Tablet 6.25 Mg PO BIDWMEALS Pantoprazole Sodium 40 Mg Tablet. 40 Mg PO DAILY Vitals/I & O Vital Sign - Last 24 Hours 01/26/19 01/26/19 01/26/19 01/26/19 11:05 12:15 12:41 15:00 Temp 98.0 98.4 98.0 98.4 Pulse 78 78 85 Resp 20 20 B/P (MAP) 174/58 (96) 174/58 181/77 (111) Pulse Ox 95 90 98 O2 Delivery Nasal Cannula Nasal Cannula Nasal Cannula O2 Flow Rate 3.0 3.0 3.0 01/26/19 01/26/19 01/26/19 01/26/19 16:33 16:47 17:26 19:00 Temp 98.3 98.3 Pulse 85 85 83 Resp 21 B/P (MAP) 181/77 181/77 175/63 (100) Pulse Ox 98 O2 Delivery Nasal Cannula Room Air O2 Flow Rate 3.0 01/26/19 01/26/19 01/26/19 01/27/19 20:06 21:23 22:19 03:00 Temp 98.4 98.3 98.4 98.3 Pulse 108 102 Resp 19 B/P (MAP) 124/58 (80) 145/55 (85) Pulse Ox 98 91 97 O2 Delivery Nasal Cannula Nasal Cannula Nasal Cannula Nasal Cannula O2 Flow Rate 3.0 3.0 3.0 3.0 01/27/19 01/27/19 01/27/19 07:42 07:45 09:36 Temp 97.9 97.9 Pulse 87 87 Resp 17 B/P (MAP) 164/46 (85) 164/46 Pulse Ox 96 97 O2 Delivery Nasal Cannula Nasal Cannula O2 Flow Rate 3.0 3.0 Intake and Output 01/26/19 01/26/19 01/27/19 15:00 23:00 07:00 Intake Total 400 ml 300 ml 300 ml Output Total 300 ml Balance 400 ml 300 ml 0 ml KIERA MOREIRA MD Jan 27, 2019 09:58
[2019-01-27 11:22] LABS: BASE EXCESS COOX 6 mmol/L (-3-3); HCO3 COOX 32 mmol/L (21-28); METHEMOGLOBIN 0.2 % (0.0-1.9); OXYHEMOGLOBIN 92.1 %; PCO2 COOX 52 mmHg (35-46); PO2 COOX 70 mmHg (65-108); SAT O2 COOX 93 % (92-99)
--- NOTE | 2019-01-27 11:55 | NUR ---
FACULTY CO-SIGN I have reviewed the documentation by Darryn Garcia nursing staffing coordinator, [facility]: Addendum: 01/27/19 at 1156 by NAZIA STEVENSON RN Amended: Links added.
[2019-01-27] MEDS: CYCLOBENZAPRINE 10 MG TABLET. PO PRN (12:51)
[2019-01-27] MEDS: oxyCODONE/APAP 5/325 1 TAB TABLET PO PRN ×2 (12:52→21:42)
--- NOTE | 2019-01-27 14:15 | PDOC ---
Renal-Progress Notes Subjective Notes Notes FEELING BETTER History of Present Illness Hx of present illness IMPROVED Vitals Vitals Vital Signs Date Time Temp Pulse Resp B/P (MAP) Pulse Ox O2 Delivery O2 Flow Rate FiO2 01/27/19 12:52 94 Nasal Cannula 3.0 01/27/19 11:47 97.6 113 19 193/81 (118) 97.6 Weight Weight [ ] I.O. Intake and Output Intake and Output 01/27/19 07:00 Intake Total 1000 ml Output Total 300 ml Balance 700 ml Intake Oral 1000 ml Output Urine Total 300 ml # Voids 6 Labs Labs Laboratory Tests Test 01/26/19 16:32 01/26/19 20:44 01/27/19 05:55 01/27/19 07:49 Glucose (Fingerstick) 157 mg/dL (70-99) 230 mg/dL (70-99) 168 mg/dL (70-99) Sodium Level 142 mmol/L (136-145) Potassium Level 3.5 mmol/L (3.5-5.1) Chloride Level 102 mmol/L (98-107) Carbon Dioxide Level 32 mmol/L (21-32) Anion Gap 8 (6-14) Blood Urea Nitrogen 40 mg/dL (7-20) Creatinine 1.9 mg/dL (0.6-1.0) Estimated GFR (Cockcroft-Gault) 27.0 Glucose Level 193 mg/dL (70-99) Calcium Level 7.6 mg/dL (8.5-10.1) Phosphorus Level 2.7 mg/dL (2.6-4.7) Albumin 3.0 g/dL (3.4-5.0) Test 01/27/19 11:10 01/27/19 11:26 O2 Saturation 93 % (92-99) Arterial Blood pH 7.41 (7.35-7.45) Arterial Blood pCO2 at Patient Temp 52 mmHg (35-46) Arterial Blood pO2 at Patient Temp 70 mmHg (65-108) Arterial Blood HCO3 32 mmol/L (21-28) Arterial Blood Base Excess 6 mmol/L (-3-3) Oxyhemoglobin 92.1 % Methemoglobin 0.2 % (0.0-1.9) Carbon Monoxide, Quantitative 1.0 % (0.0-1.9) FiO2 32 Glucose (Fingerstick) 215 mg/dL (70-99) Micro Micro Microbiology 01/23/19 Blood Culture - Preliminary, Resulted NO GROWTH AFTER 4 DAYS Review of Systems Constitutional: yes: weakness, alert, oriented Ears/Nose/Throat: Yes: no symptom reported Eyes: Yes: no symptom reported Pulmonary: Yes no symptom reported Cardiovascular: Yes no symptom reported Gastrointestional: Yes: constipation Genitourinary: Yes: no symptom reported Musculoskeletal: Yes: muscle stiffness Skin: Yes no symptom reported Psychiatric/Neurological: Yes: no symptom reported Endocrine: Yes: no symptom reported Physical Exam General Appearance: no apparent distress Skin: warm Respiratory: decreased breath sounds Heart: S1S2 Abdomen: soft, bowel sounds present Genitourinary: bladder flat Extremities: pulses present Neurology: alert, oriented Musculoskeletal: Osteoarthritis, Other Assessment Assessment IMP MUKESH-IMPROVED HYPERKALEMIA-RESOLVED CKD STAGE 3 - CR BASELINE OF 1.5-2.0 AECOPD OBESITY JOSELYN DM II PLAN STABLE FROM RENAL STANDPOINT WILL HAVE HER FOLLOW UP IN OFFICE AT D/C ZHANG SCHUMACHER MD Jan 27, 2019 14:15
[2019-01-27] MEDS: cefTRIAXone IV Push 1 GM VIAL. IVP SCH (17:07)
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
[2019-01-27] MEDS: PATCH REMOVAL. MC SCH (21:00)
[2019-01-27] MEDS: TOPIRAMATE 25 MG TABLET. PO SCH (21:43)
[2019-01-27] MEDS: QUEtiapine 25 MG TABLET. PO SCH (21:43)
[2019-01-27] MEDS: MONTELUKAST SODIUM 10 MG TABLET. PO SCH (21:44)
[2019-01-27] MEDS: INSULIN GLARGINE 300 UNITS/3 ML INSULN.PEN. SQ SCH (21:50)
[2019-01-28 03:25] VITALS: BP 168/74
[2019-01-28] MEDS: oxyCODONE/APAP 5/325 1 TAB TABLET PO PRN ×3 (03:56→21:08)
[2019-01-28 07:20] VITALS: BP 206/70
[2019-01-28] MEDS ORDERED: ALTEPLASE 1MG SYRINGE. INT CAT ONE (07:45)
--- NOTE | 2019-01-28 08:05 | PDOC ---
PULMONARY PROGRESS NOTES Subjective sob cough nasal congestion better, no pain Vitals Vital Signs Date Time Temp Pulse Resp B/P (MAP) Pulse Ox O2 Delivery O2 Flow Rate FiO2 01/28/19 07:20 98.1 115 16 206/70 (115) 99 Nasal Cannula 3.0 98.1 ROS: No Nausea General: Alert, No acute distress Lungs: Crackles, Other Cardiovascular: S1, S2 Abdomen: Soft, Non-tender Neuro Exam: Alert Extremities: Other (=edema) Skin: Warm Labs Laboratory Tests Test 01/26/19 07:59 01/26/19 11:53 01/26/19 16:32 01/26/19 20:44 Glucose (Fingerstick) 256 mg/dL (70-99) 266 mg/dL (70-99) 157 mg/dL (70-99) 230 mg/dL (70-99) Test 01/27/19 05:55 01/27/19 07:49 01/27/19 11:10 01/27/19 11:26 Sodium Level 142 mmol/L (136-145) Potassium Level 3.5 mmol/L (3.5-5.1) Chloride Level 102 mmol/L (98-107) Carbon Dioxide Level 32 mmol/L (21-32) Anion Gap 8 (6-14) Blood Urea Nitrogen 40 mg/dL (7-20) Creatinine 1.9 mg/dL (0.6-1.0) Estimated GFR (Cockcroft-Gault) 27.0 Glucose Level 193 mg/dL (70-99) Calcium Level 7.6 mg/dL (8.5-10.1) Phosphorus Level 2.7 mg/dL (2.6-4.7) Albumin 3.0 g/dL (3.4-5.0) Glucose (Fingerstick) 168 mg/dL (70-99) 215 mg/dL (70-99) O2 Saturation 93 % (92-99) Arterial Blood pH 7.41 (7.35-7.45) Arterial Blood pCO2 at Patient Temp 52 mmHg (35-46) Arterial Blood pO2 at Patient Temp 70 mmHg (65-108) Arterial Blood HCO3 32 mmol/L (21-28) Arterial Blood Base Excess 6 mmol/L (-3-3) Oxyhemoglobin 92.1 % Methemoglobin 0.2 % (0.0-1.9) Carbon Monoxide, Quantitative 1.0 % (0.0-1.9) FiO2 32 Test 01/27/19 16:56 01/27/19 20:29 01/28/19 07:19 Glucose (Fingerstick) 296 mg/dL (70-99) 279 mg/dL (70-99) 158 mg/dL (70-99) Laboratory Tests Test 01/27/19 11:10 01/27/19 11:26 01/27/19 16:56 01/27/19 20:29 O2 Saturation 93 % (92-99) Arterial Blood pH 7.41 (7.35-7.45) Arterial Blood pCO2 at Patient Temp 52 mmHg (35-46) Arterial Blood pO2 at Patient Temp 70 mmHg (65-108) Arterial Blood HCO3 32 mmol/L (21-28) Arterial Blood Base Excess 6 mmol/L (-3-3) Oxyhemoglobin 92.1 % Methemoglobin 0.2 % (0.0-1.9) Carbon Monoxide, Quantitative 1.0 % (0.0-1.9) FiO2 32 Glucose (Fingerstick) 215 mg/dL (70-99) 296 mg/dL (70-99) 279 mg/dL (70-99) Test 01/28/19 07:19 Glucose (Fingerstick) 158 mg/dL (70-99) Medications Active Scripts Medications Dose Route/Sig Max Daily Dose Days Date Category Lidocaine 1 Each Adh..patch 1 Patch TD QHS 30 08/23/18 Rx Senna-Time S Tablet (Sennosides/Docusate Sodium) 1 Each Tablet 1 Tab PO BID 14 08/23/18 Rx Levemir Flextouch (Insulin Detemir) 100 Unit/1 Ml Insuln.pen 18 Units SQ QHS 10/17/15 Rx Novolog Flexpen (Insulin Aspart) 100 Unit/1 Ml Insuln.pen 10 Units SQ TIDAC 10/17/15 Rx Topamax (Topiramate) 25 Mg Tablet 25 Mg PO HS 03/18/15 Rx Wellbutrin Sr (Bupropion Hcl) 150 Mg Tablet.er 1 Tab PO BID 03/11/15 Reported Aspirin 81 Mg Tab.chew 1 Tab PO DAILY 03/11/15 Reported Montelukast Sodium Tablet (Montelukast Sodium) 10 Mg Tablet 10 Mg PO HS 03/11/15 Reported Combivent Respimat Inhal (Ipratropium/Albuterol Sulfate) 4 Gm Aer.w.adap 2 Inh IH QID 11/28/14 Rx Lasix (Furosemide) 40 Mg Tablet 1 Tab PO DAILY 10/25/14 Rx Aldactone (Spironolactone) 25 Mg Tablet 25 Mg PO DAILY 10/25/14 Rx Klor-Con M20 (Potassium Chloride) 20 Meq Tablet.er 40 Meq PO DAILY 10/25/14 Rx Nystop (Nystatin) 1 Omid Omid 1 Omid TP BID PRN 10/25/14 Rx [Aspirin] 325 MG Tablet. 325 Mg PO DAILYWBKFT 10/25/14 Rx Carvedilol (Carvedilol) 6.25 Mg Tablet 6.25 Mg PO BIDWMEALS 10/22/14 Reported Pantoprazole Sodium 40 Mg Tablet.dr 40 Mg PO DAILY 10/22/14 Reported Comments echo reviewed The left ventricular systolic function is normal. The Ejection Fraction is 55-60%. There is normal LV segmental wall motion. Mild mitral regurgitation. Mild tricuspid regurgitation. The PA pressure was estimated at 45 mmHg. There is no evidence of significant pericardial effusion. Impression . IMPRESSION: 1. Acute on chronic respiratory failure, multifactorial in etiology including acute exacerbation of chronic obstructive pulmonary disease, acute diastolic congestive heart failure, ?acute bronchitis versus others. 2. ?Sepsis. 3. Acute exacerbation of chronic obstructive pulmonary disease. 4. Acute diastolic congestive heart failure. 5. Obesity. 6. Excessive daytime sleepiness and snoring, probable obstructive sleep apnea-hypopnea syndrome. 7. Acute kidney injury, chronic kidney disease. 8. Diabetes mellitus. 9. Gastroesophageal reflux disease. 10. Ex-smoker. Plan . PLAN AND RECOMMENDATIONS: 1. Titrate FiO2 to keep O2 saturation 90-91%. 2. Continue bronchodilator. 3. prednisone 40 mg daily w taper by 10 mg q 3d 4. Continue Singulair. 5. Continue antibiotic. 6. Lovenox for DVT prophylaxis. 7. fu Lower extremity venous Doppler. 8. Protonix for stress ulcer prophylaxis. 9. Neuro Ophthalmologist consulted. 10. Echocardiogram reviewed. 11. I do recommend a sleep study as an outpatient if not done. 12. lose wt, exercise discussed w pt, DEBBIE Dalton MD Jan 28, 2019 08:05
[2019-01-28] MEDS: predniSONE 20 MG TABLET PO SCH (08:43)
[2019-01-28] MEDS: PANTOPRAZOLE 40 MG TABLET.DR. PO SCH (08:43)
[2019-01-28] MEDS: CARVEDILOL 6.25 MG TABLET. PO SCH (08:44)
[2019-01-28] MEDS: busPIRone 10 MG TABLET. PO SCH ×2 (08:44→21:09)
[2019-01-28] MEDS: ASPIRIN CHEWABLE 81 MG TABLET. PO SCH (08:44)
[2019-01-28] MEDS: SENNOSIDES/DOCUSATE 8.6/50MG TABLET. PO SCH ×2 (08:44→21:00)
[2019-01-28] MEDS: LIDOCAINE (700MG/PATCH) PATCH. TD SCH (08:45)
[2019-01-28] MEDS: buPROPion SR 150 MG TABLET.SA PO SCH ×2 (08:45→21:08)
[2019-01-28] MEDS: FUROSEMIDE 40 MG TABLET. PO SCH (08:45)
[2019-01-28] MEDS: LACTOBACILLUS RHAMNOSUS GG 1 CAPSULE. PO SCH ×2 (08:45→21:08)
[2019-01-28] MEDS: GABAPENTIN 100 MG CAPSULE. PO SCH ×4 (08:45→21:08)
[2019-01-28] MEDS: INSULIN LISPRO 300 UNITS/3 ML INSULN.PEN. SQ SCH ×6 (09:00→16:54)
[2019-01-28] MEDS: IPRATRPIUM/ALBUTEROL 0.5/2.5MG 3 ML NEBU. NEB SCH ×4 (09:07→20:10)
[2019-01-28] MEDS: CYCLOBENZAPRINE 10 MG TABLET. PO PRN (10:10)
[2019-01-28 10:26] LABS: BASO % 1 % (0-3); EOS # 0.1 x10^3/uL (0.0-0.7); EOS % 1 % (0-3); HEMATOCRIT 29.3 % (36.0-47.0); HEMOGLOBIN 9.4 g/dL (12.0-15.5); LYMPH # 1.3 x10^3/uL (1.0-4.8); LYMPH % 22 % (24-48); MEAN CORPUSCULAR HEMOGLOBIN 28 pg (25-35); MEAN CORPUSCULAR HGB CONC 32 g/dL (31-37); MEAN CORPUSCULAR VOLUME 87 fL (79-100); MONO # 0.3 x10^3/uL (0.0-1.1); MONO % 5 % (0-9); NEUT # 4.4 x10^3uL (1.8-7.7); NEUT % 71 % (31-73); PLATELET COUNT 123 x10^3/uL (140-400); RED BLOOD COUNT 3.35 x10^6/uL (3.50-5.40); RED CELL DISTRIBUTION WIDTH 14.4 % (11.5-14.5); WHITE BLOOD COUNT 6.2 x10^3/uL (4.0-11.0)
[2019-01-28 10:38] LABS: ALBUMIN 2.6 g/dL (3.4-5.0); CALCIUM 7.5 mg/dL (8.5-10.1); CREATININE 1.8 mg/dL (0.6-1.0); GFR 28.7; PHOSPHORUS 3.1 mg/dL (2.6-4.7); POTASSIUM 3.9 mmol/L (3.5-5.1)
[2019-01-28 11:06] VITALS: BP 193/83
--- NOTE | 2019-01-28 11:21 | RAD ---
Bilateral lower extremity venous ultrasound: History: Bilateral lower extremity swelling, morbid obesity Sonographic evaluation including grayscale, color flow and spectral Doppler analysis of the deep veins of the lower extremities was performed. The femoral and popliteal veins demonstrate normal compressibility and normal responses to distal augmentation maneuvers. Color imaging of those vessels shows no evidence of intraluminal clot. The visualized deep veins in both calves are patent. Calf veins were not well visualized due to patient's body habitus, mildly limited study. IMPRESSION: 1. There is no sonographic evidence of deep vein thrombosis in either lower extremity. 2. Some limitation in evaluation of the calf veins. Electronically signed by: Pablo De Leon MD (01/28/2019 11:19 AM) [facility]
--- NOTE | 2019-01-28 11:45 | PDOC ---
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 There is moderate to severe narrowing of the left neural foramen. Laminectomy is apparent on the left side hyperkalemia There is degenerative disc disease with disc space narrowing at L3-4, L4-5 and L5-S1. There is no abnormal subluxation in the lower lumbar spine. There is slight retrolisthesis of L2 relative to L3. There is facet arthritis in the lower lumbar spine. CKD stage 3-4 MUKESH POORLY CONTROLLED HTN 01/26 states low back pain is just intolerable will order mri l/s 01/28 SOA AND PAIN NOT IMPROVING plan: gabapentin 100mg po tid buspar 10mg po bid no narcotics due to hypercapnea, SEVERE consult pulm IV ROCEPHIN, VANC in er, d/c vanc due to ckd bipap at night, pt refuses. on NC duoneb, QID insulin to lantus 15u qhs, aspart 5u tid, ssi cough meds dvt ppx PTOT abdominal binder when up consulted dr johnson IV STEROIDS, taper iv fluid support nephrology consult MRI L/S OUT PT abg 01/28 D/C IBUPROFEN INC COREG TO 12.5 MG PO BID ADD HYDRALAZINE 50MG PO BID 47 min pt exam, chart review,> 50% of time with pt exam, chart review, pt care coordination AT HIGH RISK OF PULM ARREST, DUE TO BIPAP NONCOMPLIANCE PER MY CHART REVIEW Vitals Vitals Vital Signs Date Time Temp Pulse Resp B/P (MAP) Pulse Ox O2 Delivery O2 Flow Rate FiO2 01/28/19 11:06 98.8 104 17 193/83 (119) 95 Nasal Cannula 3.0 98.8 Physical Exam General: Alert, Oriented X3, Cooperative, mild distress, moderate distress Heart: Regular rate, Normal S1, Normal S2, No murmurs Lungs: Crackles, Other Abdomen: Normal bowel sounds, Soft, Other (very obese) Extremities: No clubbing, No cyanosis Skin: No breakdown, No significant lesion Labs LABS Laboratory Tests Test 01/27/19 16:56 01/27/19 20:29 01/28/19 07:19 01/28/19 10:15 Glucose (Fingerstick) 296 mg/dL (70-99) 279 mg/dL (70-99) 158 mg/dL (70-99) White Blood Count 6.2 x10^3/uL (4.0-11.0) Red Blood Count 3.35 x10^6/uL (3.50-5.40) Hemoglobin 9.4 g/dL (12.0-15.5) Hematocrit 29.3 % (36.0-47.0) Mean Corpuscular Volume 87 fL (79-100) Mean Corpuscular Hemoglobin 28 pg (25-35) Mean Corpuscular Hemoglobin Concent 32 g/dL (31-37) Red Cell Distribution Width 14.4 % (11.5-14.5) Platelet Count 123 x10^3/uL (140-400) Neutrophils (%) (Auto) 71 % (31-73) Lymphocytes (%) (Auto) 22 % (24-48) Monocytes (%) (Auto) 5 % (0-9) Eosinophils (%) (Auto) 1 % (0-3) Basophils (%) (Auto) 1 % (0-3) Neutrophils # (Auto) 4.4 x10^3uL (1.8-7.7) Lymphocytes # (Auto) 1.3 x10^3/uL (1.0-4.8) Monocytes # (Auto) 0.3 x10^3/uL (0.0-1.1) Eosinophils # (Auto) 0.1 x10^3/uL (0.0-0.7) Basophils # (Auto) 0.0 x10^3/uL (0.0-0.2) Sodium Level 143 mmol/L (136-145) Potassium Level 3.9 mmol/L (3.5-5.1) Chloride Level 103 mmol/L (98-107) Carbon Dioxide Level 35 mmol/L (21-32) Anion Gap 5 (6-14) Blood Urea Nitrogen 36 mg/dL (7-20) Creatinine 1.8 mg/dL (0.6-1.0) Estimated GFR (Cockcroft-Gault) 28.7 Glucose Level 206 mg/dL (70-99) Calcium Level 7.5 mg/dL (8.5-10.1) Phosphorus Level 3.1 mg/dL (2.6-4.7) Albumin 2.6 g/dL (3.4-5.0) Assessment and Plan Assessmemt and Plan Problems Medical Problems: (1) Acute and chronic respiratory failure ([id number]) Status: Acute (2) Anxiety Status: Acute (3) Hyperglycemia Status: Acute (4) Renal failure Status: Acute Comment Review of Relevant I have reviewed the following items kylee (where applicable) has been applied. Labs Laboratory Tests Test 01/26/19 11:53 01/26/19 16:32 01/26/19 20:44 01/27/19 05:55 Glucose (Fingerstick) 266 mg/dL (70-99) 157 mg/dL (70-99) 230 mg/dL (70-99) Sodium Level 142 mmol/L (136-145) Potassium Level 3.5 mmol/L (3.5-5.1) Chloride Level 102 mmol/L (98-107) Carbon Dioxide Level 32 mmol/L (21-32) Anion Gap 8 (6-14) Blood Urea Nitrogen 40 mg/dL (7-20) Creatinine 1.9 mg/dL (0.6-1.0) Estimated GFR (Cockcroft-Gault) 27.0 Glucose Level 193 mg/dL (70-99) Calcium Level 7.6 mg/dL (8.5-10.1) Phosphorus Level 2.7 mg/dL (2.6-4.7) Albumin 3.0 g/dL (3.4-5.0) Test 01/27/19 07:49 01/27/19 11:10 01/27/19 11:26 01/27/19 16:56 Glucose (Fingerstick) 168 mg/dL (70-99) 215 mg/dL (70-99) 296 mg/dL (70-99) O2 Saturation 93 % (92-99) Arterial Blood pH 7.41 (7.35-7.45) Arterial Blood pCO2 at Patient Temp 52 mmHg (35-46) Arterial Blood pO2 at Patient Temp 70 mmHg (65-108) Arterial Blood HCO3 32 mmol/L (21-28) Arterial Blood Base Excess 6 mmol/L (-3-3) Oxyhemoglobin 92.1 % Methemoglobin 0.2 % (0.0-1.9) Carbon Monoxide, Quantitative 1.0 % (0.0-1.9) FiO2 32 Test 01/27/19 20:29 01/28/19 07:19 01/28/19 10:15 Glucose (Fingerstick) 279 mg/dL (70-99) 158 mg/dL (70-99) White Blood Count 6.2 x10^3/uL (4.0-11.0) Red Blood Count 3.35 x10^6/uL (3.50-5.40) Hemoglobin 9.4 g/dL (12.0-15.5) Hematocrit 29.3 % (36.0-47.0) Mean Corpuscular Volume 87 fL (79-100) Mean Corpuscular Hemoglobin 28 pg (25-35) Mean Corpuscular Hemoglobin Concent 32 g/dL (31-37) Red Cell Distribution Width 14.4 % (11.5-14.5) Platelet Count 123 x10^3/uL (140-400) Neutrophils (%) (Auto) 71 % (31-73) Lymphocytes (%) (Auto) 22 % (24-48) Monocytes (%) (Auto) 5 % (0-9) Eosinophils (%) (Auto) 1 % (0-3) Basophils (%) (Auto) 1 % (0-3) Neutrophils # (Auto) 4.4 x10^3uL (1.8-7.7) Lymphocytes # (Auto) 1.3 x10^3/uL (1.0-4.8) Monocytes # (Auto) 0.3 x10^3/uL (0.0-1.1) Eosinophils # (Auto) 0.1 x10^3/uL (0.0-0.7) Basophils # (Auto) 0.0 x10^3/uL (0.0-0.2) Sodium Level 143 mmol/L (136-145) Potassium Level 3.9 mmol/L (3.5-5.1) Chloride Level 103 mmol/L (98-107) Carbon Dioxide Level 35 mmol/L (21-32) Anion Gap 5 (6-14) Blood Urea Nitrogen 36 mg/dL (7-20) Creatinine 1.8 mg/dL (0.6-1.0) Estimated GFR (Cockcroft-Gault) 28.7 Glucose Level 206 mg/dL (70-99) Calcium Level 7.5 mg/dL (8.5-10.1) Phosphorus Level 3.1 mg/dL (2.6-4.7) Albumin 2.6 g/dL (3.4-5.0) Laboratory Tests Test 01/27/19 16:56 01/27/19 20:29 01/28/19 07:19 01/28/19 10:15 Glucose (Fingerstick) 296 mg/dL (70-99) 279 mg/dL (70-99) 158 mg/dL (70-99) White Blood Count 6.2 x10^3/uL (4.0-11.0) Red Blood Count 3.35 x10^6/uL (3.50-5.40) Hemoglobin 9.4 g/dL (12.0-15.5) Hematocrit 29.3 % (36.0-47.0) Mean Corpuscular Volume 87 fL (79-100) Mean Corpuscular Hemoglobin 28 pg (25-35) Mean Corpuscular Hemoglobin Concent 32 g/dL (31-37) Red Cell Distribution Width 14.4 % (11.5-14.5) Platelet Count 123 x10^3/uL (140-400) Neutrophils (%) (Auto) 71 % (31-73) Lymphocytes (%) (Auto) 22 % (24-48) Monocytes (%) (Auto) 5 % (0-9) Eosinophils (%) (Auto) 1 % (0-3) Basophils (%) (Auto) 1 % (0-3) Neutrophils # (Auto) 4.4 x10^3uL (1.8-7.7) Lymphocytes # (Auto) 1.3 x10^3/uL (1.0-4.8) Monocytes # (Auto) 0.3 x10^3/uL (0.0-1.1) Eosinophils # (Auto) 0.1 x10^3/uL (0.0-0.7) Basophils # (Auto) 0.0 x10^3/uL (0.0-0.2) Sodium Level 143 mmol/L (136-145) Potassium Level 3.9 mmol/L (3.5-5.1) Chloride Level 103 mmol/L (98-107) Carbon Dioxide Level 35 mmol/L (21-32) Anion Gap 5 (6-14) Blood Urea Nitrogen 36 mg/dL (7-20) Creatinine 1.8 mg/dL (0.6-1.0) Estimated GFR (Cockcroft-Gault) 28.7 Glucose Level 206 mg/dL (70-99) Calcium Level 7.5 mg/dL (8.5-10.1) Phosphorus Level 3.1 mg/dL (2.6-4.7) Albumin 2.6 g/dL (3.4-5.0) Microbiology 01/23/19 Blood Culture - Final, Complete NO GROWTH AFTER 5 DAYS Medications Current Medications Albuterol/ Ipratropium (Duoneb) 3 ml 1X ONCE NEB Last administered on at 08:04; Start 01/23/19 at 08:00; Stop 01/23/19 at 08:03; Status DC Methylprednisolone Sodium Succinate (SOLU-Medrol 125MG VIAL) 125 mg 1X ONCE IV Last administered on 01/23/19at 08:25; Start 01/23/19 at 08:00; Stop 01/23/19 at 08:03; Status DC Oxycodone/ Acetaminophen (Percocet 5/325) 1 tab 1X ONCE PO Last administered on 01/23/19 09:01; Start 01/23/19 at 09:00; Stop 01/23/19 at 09:01; Status DC Ceftriaxone Sodium (Rocephin) 1 gm 1X ONCE IVP Last administered on 01/23/19at 09:00; Start 01/23/19 at 09:00; Stop 01/23/19 at 09:01; Status DC Magnesium Sulfate 50 ml @ 25 mls/hr 1X ONCE IV Last administered on 01/23/19at 15:06; Start 01/23/19 at 09:15; Stop 01/23/19 at 11:14; Status DC Sodium Chloride 1,000 ml @ 1,000 mls/hr 1X ONCE IV Last administered on at 15:07; Start 01/23/19 at 09:15; Stop 01/23/19 at 10:14; Status DC Vancomycin HCl 2 gm/Sodium Chloride 500 ml @ 250 mls/hr 1X ONCE IV Last administered on 01/23/19 09:52; Start 01/23/19 at 09:30; Stop 01/23/19 at 11:29; Status DC Sodium Chloride 1,000 ml @ 150 mls/hr Q6H40M IV Last administered on at 06:30; Start 01/23/19 at 09:30; Stop 01/24/19 at 09:29; Status DC Aspirin (Children'S Aspirin) 81 mg DAILY PO Last administered on 01/28/19 08: 44; Start 01/23/19 at 11:00 Bupropion HCl (Wellbutrin Sr) 150 mg BID PO Last administered on 01/28/19 08: 45; Start 01/23/19 at 11:00 Carvedilol (Coreg) 6.25 mg BIDWMEALS PO Last administered on 01/28/19 08:44; Start 01/23/19 at 11:00 Furosemide (Lasix) 40 mg DAILY PO Last administered on 01/28/19 08:45; Start 01/23/19 at 11:00 Nystatin (Nystop) 1 omid PRN BID PRN TP Yeast infection; Start 01/23/19 at 09:30 Potassium Chloride (Klor-Con) 40 meq DAILY PO Last administered on 01/24/19 08 :51; Start 01/23/19 at 11:00; Stop 01/25/19 at 14:17; Status DC Senna/Docusate Sodium (Senna Plus) 1 tab BID PO Last administered on 01/28/19 08:44; Start 01/23/19 at 11:00 Insulin Human Lispro (HumaLOG) 10 units TIDWMEALS SQ Last administered on 09:00; Start 01/23/19 at 12:00 Insulin Glargine (Lantus) 18 units QHS SQ Last administered on 01/27/19at 21:50 ; Start 01/23/19 at 21:00 Lidocaine (Lidoderm) 1 patch QHS TD ; Start 01/23/19 at 21:00; Stop 01/23/19 at 21 :00; Status DC Montelukast Sodium (Singulair) 10 mg QHS PO Last administered on 01/27/19 21: 44; Start 01/23/19 at 21:00 Spironolactone (Aldactone) 25 mg DAILY PO Last administered on 01/24/19at 08:51 ; Start 01/23/19 at 11:00; Stop 01/25/19 at 14:18; Status DC Topiramate (Topamax) 25 mg QHS PO Last administered on 01/27/19 21:43; Start 01/23/19 at 21:00 Non-Formulary Medication ([Aspirin] ) 325 mg DAILYWBKFT PO ; Start 01/24/19 at 08:00; Status UNV Pantoprazole Sodium (Protonix) 40 mg DAILYAC PO Last administered on 01/28/19at 08:43; Start 01/23/19 at 11:00 Non-Formulary Medication (Ipratropium/ Albuterol Sulfate (Combivent Respimat Inhal)) 2 inh QID IH ; Start 01/23/19 at 13:00; Status UNV Albuterol/ Ipratropium (Duoneb) 3 ml RTQID NEB Last administered on 01/28/19 09:07; Start 01/23/19 at 12:00 Insulin Human Lispro (HumaLOG) 0-5 UNITS TIDWMEALS SQ Last administered on 01/28 09:01; Start 01/23/19 at 12:00 Dextrose (Dextrose 50%-Water Syringe) 12.5 gm PRN Q15MIN PRN IV SEE COMMENTS; Start 01/23/19 at 10:15 Lidocaine/Sodium Bicarbonate (Buffered Lidocaine 1%) 3 ml STK-MED ONCE .ROUTE ; Start 01/23/19 at 13:44; Stop 01/23/19 at 13:45; Status DC Lidocaine/Sodium Bicarbonate (Buffered Lidocaine 1%) 3 ml 1X ONCE INJ Last administered on 01/23/19at 14:01; Start 01/23/19 at 14:00; Stop 01/23/19 at 14:01; Status DC Lidocaine (Lidoderm) 1 patch DAILY TD Last administered on 01/28/19at 08:45; Start 01/23/19 at 18:00 Miscellaneous (Lidoderm Patch Removal) 1 ea QHS MC Last administered on 21:00; Start 01/23/19 at 21:00 Oxycodone/ Acetaminophen (Percocet 5/325) 1 tab PRN Q6HRS PRN PO PAIN Last administered on 01/28/19 10:10; Start 01/23/19 at 22:45; Stop 01/28/19 at 11:13 ; Status DC Quetiapine Fumarate (SEROquel) 25 mg QHS PO ; Start 01/24/19 at 21:00; Stop 08/04 at 21:00; Status DC Quetiapine Fumarate (SEROquel) 25 mg QHS PO Last administered on 01/27/19 21: 43; Start 01/23/19 at 23:00 Enoxaparin Sodium (Lovenox 60mg Syringe) 60 mg Q12HR SQ Last administered on 08:44; Start 01/24/19 at 11:30 Magnesium Sulfate 50 ml @ 25 mls/hr 1X ONCE IV Last administered on 01/24/19 17:05; Start 01/24/19 at 16:00; Stop 01/24/19 at 17:59; Status DC Ceftriaxone Sodium (Rocephin) 1 gm Q24H IVP Last administered on 01/27/19 17: 07; Start 01/24/19 at 16:00 Methylprednisolone Sodium Succinate (SOLU-Medrol 40MG VIAL) 80 mg Q8HRS IV Last administered on 01/25/19 05:04; Start 01/24/19 at 17:00; Stop 01/25/19 at 11:55; Status DC Ibuprofen (Motrin) 600 mg PRN Q8HRS PRN PO INFLAMMATION Last administered on 03:13; Start 01/24/19 at 23:15 Cyclobenzaprine HCl (Flexeril) 10 mg PRN Q12HR PRN PO MUSCLE SPASMS Last administered on 01/28/19 10:10; Start 01/24/19 at 23:15 Buspirone HCl (Buspar) 10 mg BID PO Last administered on 01/28/19 08:44; Start 01/25/19 at 11:00 Sodium Polystyrene Sulfonate (Kayexalate) 30 gm 1X ONCE PO Last administered on 4/11/19at 11:19; Start 01/25/19 at 11:00; Stop 01/25/19 at 11:03; Status DC Methylprednisolone Sodium Succinate (SOLU-Medrol 40MG VIAL) 40 mg Q8HRS IV Last administered on 01/26/19at 06:23; Start 01/25/19 at 14:00; Stop 01/26/19 at 07:00; Status DC Sodium Polystyrene Sulfonate (Kayexalate) 30 gm 1X ONCE PO ; Start 01/25/19 at 14:30; Stop 01/25/19 at 14:31; Status DC Lactobacillus Rhamnosus (Culturelle) 1 cap BID PO Last administered on at 08:45; Start 01/25/19 at 21:00 Hydralazine HCl (Apresoline Inj) 10 mg PRN Q6HRS PRN IVP ELEVATED BP, SEE COMMENTS Last administered on 01/26/19at 12:41; Start 01/25/19 at 17:15; Stop 10/04 at 17:10; Status DC Gabapentin (Neurontin) 100 mg TID@0900,1300,1800 PO Last administered on at 08:45; Start 01/25/19 at 18:00 Gabapentin (Neurontin) 200 mg QHS PO Last administered on 01/27/19at 21:43; Start 01/25/19 at 21:00 Methylprednisolone Sodium Succinate (SOLU-Medrol 40MG VIAL) 40 mg Q12HR IV Last administered on 01/27/19at 09:34; Start 01/26/19 at 21:00; Stop 01/27/19 at 13:24; Status DC Hydralazine HCl (Apresoline Inj) 10 mg PRN Q4HRS PRN IVP ELEVATED BP, SEE COMMENTS Last administered on 01/26/19at 17:26; Start 01/26/19 at 17:15 Guaifenesin (Mucinex) 600 mg BID PO Last administered on 01/28/19 08:44; Start 01/27/19 at 21:00 Prednisone (Prednisone) 40 mg DAILY PO Last administered on 01/28/19 08:43; Start 01/28/19 at 09:00 Alteplase, Recombinant (Cathflo For Central Catheter Clearance) 1 mg 1X ONCE INT CAT Last administered on 01/28/19at 08:39; Start 01/28/19 at 07:45; Stop at 07:49; Status DC Oxycodone/ Acetaminophen (Percocet 5/325) 2 tab PRN Q6HRS PRN PO PAIN; Start at 11:15 Active Scripts Active Lidocaine 1 Each Adh..patch 1 Patch TD QHS 30 Days Senna-Time S Tablet (Sennosides/Docusate Sodium) 1 Each Tablet 1 Tab PO BID 14 Days Levemir Flextouch (Insulin Detemir) 100 Unit/1 Ml Insuln.pen 18 Units SQ QHS Novolog Flexpen (Insulin Aspart) 100 Unit/1 Ml Insuln.pen 10 Units SQ TIDAC Topamax (Topiramate) 25 Mg Tablet 25 Mg PO HS Combivent Respimat Inhal (Ipratropium/Albuterol Sulfate) 4 Gm Aer.w.adap 2 Inh IH QID Lasix (Furosemide) 40 Mg Tablet 1 Tab PO DAILY Aldactone (Spironolactone) 25 Mg Tablet 25 Mg PO DAILY Klor-Con M20 (Potassium Chloride) 20 Meq Tablet.er 40 Meq PO DAILY Nystop (Nystatin) 1 Omid Omid 1 Omid TP BID PRN [Aspirin] 325 MG Tablet. 325 Mg PO DAILYWBKFT Reported Wellbutrin Sr (Bupropion Hcl) 150 Mg Tablet.er 1 Tab PO BID Aspirin 81 Mg Tab.chew 1 Tab PO DAILY Montelukast Sodium Tablet (Montelukast Sodium) 10 Mg Tablet 10 Mg PO HS Carvedilol (Carvedilol) 6.25 Mg Tablet 6.25 Mg PO BIDWMEALS Pantoprazole Sodium 40 Mg Tablet. 40 Mg PO DAILY Vitals/I & O Vital Sign - Last 24 Hours 01/27/19 01/27/19 01/27/19 01/27/19 11:47 12:52 15:34 16:48 Temp 97.6 98.1 97.6 98.1 Pulse 113 98 Resp B/P (MAP) 193/81 (118) 164/72 (102) Pulse Ox 94 94 93 O2 Delivery Nasal Cannula Nasal Cannula Nasal Cannula Nasal Cannula O2 Flow Rate 3.0 3.0 3.0 3.0 01/27/19 01/27/19 01/27/19 01/27/19 17:08 19:20 20:00 20:33 Temp 97.9 97.9 Pulse 98 77 Resp 16 B/P (MAP) 164/72 141/51 (81) Pulse Ox 97 O2 Delivery Nasal Cannula Nasal Cannula Nasal Cannula O2 Flow Rate 3.0 3.0 3.0 01/27/19 01/27/19 01/27/19 01/28/19 21:42 22:45 23:20 03:25 Temp 97.5 97.4 97.5 97.4 Pulse 78 73 Resp 18 16 16 B/P (MAP) 148/60 (89) 168/74 (105) Pulse Ox 97 97 98 O2 Delivery Nasal Cannula Nasal Cannula Nasal Cannula O2 Flow Rate 3.0 3.0 3.0 01/28/19 01/28/19 01/28/19 01/28/19 03:56 04:59 07:20 08:00 Temp 98.1 98.1 Pulse 115 Resp 16 B/P (MAP) 206/70 (115) Pulse Ox 97 97 99 O2 Delivery Nasal Cannula Nasal Cannula Nasal Cannula Nasal Cannula O2 Flow Rate 3.0 3.0 3.0 3.0 01/28/19 01/28/19 01/28/19 01/28/19 08:44 09:08 10:10 11:06 Temp 98.8 98.8 Pulse 115 104 Resp 17 B/P (MAP) 206/70 193/83 (119) Pulse Ox 100 100 95 O2 Delivery Nasal Cannula Nasal Cannula Nasal Cannula O2 Flow Rate 3.0 3.0 3.0 Intake and Output 01/27/19 01/27/19 01/28/19 14:59 22:59 06:59 Intake Total 980 ml 300 ml Output Total 1 ml Balance 979 ml 300 ml ACE ZELAYA MD Jan 28, 2019 11:44
--- NOTE | 2019-01-28 12:06 | PDOC ---
Renal-Progress Notes Subjective Notes Notes NOTHING NEW History of Present Illness Hx of present illness STABLE Vitals Vitals Vital Signs Date Time Temp Pulse Resp B/P (MAP) Pulse Ox O2 Delivery O2 Flow Rate FiO2 01/28/19 11:06 98.8 104 17 193/83 (119) 95 Nasal Cannula 3.0 98.8 Weight Weight [ ] I.O. Intake and Output Intake and Output 01/28/19 07:00 Intake Total 1280 ml Output Total 1 ml Balance 1279 ml Intake Oral 1280 ml Output Urine Total 1 ml # Voids 3 # Bowel Movements 2 Labs Labs Laboratory Tests Test 01/27/19 16:56 01/27/19 20:29 01/28/19 07:19 01/28/19 10:15 Glucose (Fingerstick) 296 mg/dL (70-99) 279 mg/dL (70-99) 158 mg/dL (70-99) White Blood Count 6.2 x10^3/uL (4.0-11.0) Red Blood Count 3.35 x10^6/uL (3.50-5.40) Hemoglobin 9.4 g/dL (12.0-15.5) Hematocrit 29.3 % (36.0-47.0) Mean Corpuscular Volume 87 fL (79-100) Mean Corpuscular Hemoglobin 28 pg (25-35) Mean Corpuscular Hemoglobin Concent 32 g/dL (31-37) Red Cell Distribution Width 14.4 % (11.5-14.5) Platelet Count 123 x10^3/uL (140-400) Neutrophils (%) (Auto) 71 % (31-73) Lymphocytes (%) (Auto) 22 % (24-48) Monocytes (%) (Auto) 5 % (0-9) Eosinophils (%) (Auto) 1 % (0-3) Basophils (%) (Auto) 1 % (0-3) Neutrophils # (Auto) 4.4 x10^3uL (1.8-7.7) Lymphocytes # (Auto) 1.3 x10^3/uL (1.0-4.8) Monocytes # (Auto) 0.3 x10^3/uL (0.0-1.1) Eosinophils # (Auto) 0.1 x10^3/uL (0.0-0.7) Basophils # (Auto) 0.0 x10^3/uL (0.0-0.2) Sodium Level 143 mmol/L (136-145) Potassium Level 3.9 mmol/L (3.5-5.1) Chloride Level 103 mmol/L (98-107) Carbon Dioxide Level 35 mmol/L (21-32) Anion Gap 5 (6-14) Blood Urea Nitrogen 36 mg/dL (7-20) Creatinine 1.8 mg/dL (0.6-1.0) Estimated GFR (Cockcroft-Gault) 28.7 Glucose Level 206 mg/dL (70-99) Calcium Level 7.5 mg/dL (8.5-10.1) Phosphorus Level 3.1 mg/dL (2.6-4.7) Albumin 2.6 g/dL (3.4-5.0) Test 01/28/19 11:44 Glucose (Fingerstick) 212 mg/dL (70-99) Micro Micro Microbiology 01/23/19 Blood Culture - Final, Complete NO GROWTH AFTER 5 DAYS Review of Systems Constitutional: yes: weakness, alert, oriented Ears/Nose/Throat: Yes: no symptom reported Eyes: Yes: no symptom reported Pulmonary: Yes no symptom reported Cardiovascular: Yes no symptom reported Gastrointestional: Yes: constipation Genitourinary: Yes: no symptom reported Musculoskeletal: Yes: muscle stiffness Skin: Yes no symptom reported Psychiatric/Neurological: Yes: no symptom reported Endocrine: Yes: no symptom reported Physical Exam General Appearance: no apparent distress Skin: warm Respiratory: decreased breath sounds Heart: S1S2 Abdomen: soft, bowel sounds present Genitourinary: bladder flat Extremities: pulses present Neurology: alert, oriented Musculoskeletal: Osteoarthritis, Other Assessment Assessment IMP MUKESH-RESOLVED HYPERKALEMIA-RESOLVED CKD STAGE 3 - CR BASELINE OF 1.5-2.0 AECOPD OBESITY JOSELYN DM II PLAN STOP IBUPROFEN LOW RASHMI LASIX STABLE FROM RENAL STANDPOINT WILL HAVE HER FOLLOW UP IN OFFICE AT D/C ZHANG SCHUMACHER MD Jan 28, 2019 12:05
[2019-01-28] MEDS ORDERED: METOPROLOL SUCC 24HR ER 25 MG TAB.ER.24H. PO ONE (13:30)
[2019-01-28] MEDS ORDERED: cloNIDine TTS-2 1 PATCH PATCH TD SCH (14:00)
[2019-01-28 15:35] VITALS: BP 207/81
[2019-01-28] MEDS: cefTRIAXone IV Push 1 GM VIAL. IVP SCH (16:39)
[2019-01-28] MEDS: CARVEDILOL 12.5 MG TABLET. PO SCH (16:49)
[2019-01-28 19:30] VITALS: BP 134/71
[2019-01-28] MEDS: PATCH REMOVAL. MC SCH (21:00)
[2019-01-28] MEDS: QUEtiapine 25 MG TABLET. PO SCH (21:08)
[2019-01-28] MEDS: TOPIRAMATE 25 MG TABLET. PO SCH (21:09)
[2019-01-28] MEDS: MONTELUKAST SODIUM 10 MG TABLET. PO SCH (21:09)
[2019-01-28] MEDS: INSULIN GLARGINE 300 UNITS/3 ML INSULN.PEN. SQ SCH (21:16)
[2019-01-28 23:35] VITALS: BP 151/62
[2019-01-29 03:35] VITALS: BP 112/73
[2019-01-29] MEDS: oxyCODONE/APAP 5/325 1 TAB TABLET PO PRN ×3 (03:35→19:00)
[2019-01-29 06:29] LABS: BASO % 0 % (0-3); EOS # 0.1 x10^3/uL (0.0-0.7); EOS % 1 % (0-3); HEMATOCRIT 29.7 % (36.0-47.0); HEMOGLOBIN 9.6 g/dL (12.0-15.5); LYMPH # 1.7 x10^3/uL (1.0-4.8); LYMPH % 25 % (24-48); MEAN CORPUSCULAR HEMOGLOBIN 28 pg (25-35); MEAN CORPUSCULAR HGB CONC 32 g/dL (31-37); MEAN CORPUSCULAR VOLUME 88 fL (79-100); MONO # 0.4 x10^3/uL (0.0-1.1); MONO % 6 % (0-9); NEUT # 4.7 x10^3uL (1.8-7.7); NEUT % 68 % (31-73); PLATELET COUNT 124 x10^3/uL (140-400); RED CELL DISTRIBUTION WIDTH 14.7 % (11.5-14.5); WHITE BLOOD COUNT 6.9 x10^3/uL (4.0-11.0)
[2019-01-29 06:48] LABS: ALBUMIN 2.8 g/dL (3.4-5.0); CALCIUM 7.7 mg/dL (8.5-10.1); CREATININE 1.8 mg/dL (0.6-1.0); GFR 28.7; PHOSPHORUS 3.8 mg/dL (2.6-4.7); POTASSIUM 4.2 mmol/L (3.5-5.1)
[2019-01-29 07:00] VITALS: BP 194/74
[2019-01-29] MEDS: IPRATRPIUM/ALBUTEROL 0.5/2.5MG 3 ML NEBU. NEB SCH ×4 (07:31→19:46)
[2019-01-29] MEDS: INSULIN LISPRO 300 UNITS/3 ML INSULN.PEN. SQ SCH ×6 (08:00→17:47)
[2019-01-29] MEDS: buPROPion SR 150 MG TABLET.SA PO SCH ×2 (08:36→20:25)
[2019-01-29] MEDS: PANTOPRAZOLE 40 MG TABLET.DR. PO SCH (08:37)
[2019-01-29] MEDS: predniSONE 20 MG TABLET PO SCH (08:37)
[2019-01-29] MEDS: ASPIRIN CHEWABLE 81 MG TABLET. PO SCH (08:37)
[2019-01-29] MEDS: busPIRone 10 MG TABLET. PO SCH ×2 (08:37→20:25)
[2019-01-29] MEDS: LACTOBACILLUS RHAMNOSUS GG 1 CAPSULE. PO SCH ×2 (08:37→20:23)
[2019-01-29] MEDS: GABAPENTIN 100 MG CAPSULE. PO SCH ×4 (08:37→20:23)
[2019-01-29] MEDS: FUROSEMIDE 40 MG TABLET. PO SCH (08:38)
[2019-01-29] MEDS: CARVEDILOL 12.5 MG TABLET. PO SCH ×2 (08:38→16:45)
[2019-01-29] MEDS: hydrALAZINE 20 MG/ML VIAL. IVP PRN (08:39)
[2019-01-29] MEDS: LIDOCAINE (700MG/PATCH) PATCH. TD SCH (08:41)
[2019-01-29] MEDS: CYCLOBENZAPRINE 10 MG TABLET. PO PRN (08:43)
[2019-01-29] MEDS: SENNOSIDES/DOCUSATE 8.6/50MG TABLET. PO SCH ×2 (08:57→20:25)
--- NOTE | 2019-01-29 09:10 | PDOC ---
PROGRESS NOTES History of Present Illness History of Present Illness VTE Prophylaxis Ordered VTE Prophylaxis Devices: Yes VTE Pharmacological Prophylaxi: Yes Assessment/Plan Assessment/Plan inc anxiety SEVERE EXAC OF COPD with extreme hypoxia on presentation/ PNEUMONITIS ACUTE SIRS hx co2 retention, JOSELYN Acute on chronic combined hypoxic and hx severe hypercapnic respiratory failure DM2 on insulin Acute renal failure, vasomotor CKD3 HTN morbid obesity, extreme chronic pain syndrome At L5-S1, mild degenerative endplate spurring and diffuse disc bulging is seen extending into the inferior aspect of the left neural foramen. There is moderate to severe narrowing of the left neural foramen. Laminectomy is apparent on the left side she has had 5 back surgeries hyperkalemia, corrected There is degenerative disc disease with disc space narrowing at L3-4, L4-5 and L5-S1. There is no abnormal subluxation in the lower lumbar spine. There is slight retrolisthesis of L2 relative to L3. There is facet arthritis in the lower lumbar spine. CKD stage 3-4 MUKESH very POORLY CONTROLLED HTN 01/26 states low back pain is just intolerable will order mri l/s 01/28 less SOA AND PAIN IMPROVING plan: home tomorrow with home health if bp stable refuses inpatient rehab gabapentin 100mg po tid buspar 10mg po bid no narcotics due to hypercapnea, SEVERE consult pulm IV ROCEPHIN, VANC in er, d/c vanc due to ckd bipap at night, pt refuses. on NC duoneb, QID insulin to lantus 15u qhs, aspart 5u tid, ssi cough meds dvt ppx PTOT abdominal binder when up consulted dr johnson STEROIDS, taper iv fluid support nephrology consult MRI L/S OUT PT likely not helpful , not a surgical candidate per neurology abg 01/28 D/C IBUPROFEN INC COREG TO 12.5 MG PO BID ADD HYDRALAZINE 50MG PO tid 44 min pt exam, d/c planning chart review,> 50% of time with pt exam, chart review, pt care coordination AT HIGH RISK OF PULM ARREST, DUE TO BIPAP NONCOMPLIANCE PER MY CHART REVIEW Vitals Vitals Vital Signs Date Time Temp Pulse Resp B/P (MAP) Pulse Ox O2 Delivery O2 Flow Rate FiO2 01/29/19 08:39 72 194/74 01/29/19 07:31 95 Nasal Cannula 3.0 01/29/19 07:00 97.7 20 97.7 Physical Exam General: Alert, Oriented X3, Cooperative, mild distress Heart: Regular rate, Normal S1, Normal S2, No murmurs Lungs: Clear, Other Abdomen: Normal bowel sounds, Soft, Other (very obese) Extremities: No clubbing, No cyanosis Skin: No breakdown, No significant lesion Labs LABS Laboratory Tests Test 01/28/19 10:15 01/28/19 11:44 01/28/19 16:27 01/28/19 20:12 White Blood Count 6.2 x10^3/uL (4.0-11.0) Red Blood Count 3.35 x10^6/uL (3.50-5.40) Hemoglobin 9.4 g/dL (12.0-15.5) Hematocrit 29.3 % (36.0-47.0) Mean Corpuscular Volume 87 fL (79-100) Mean Corpuscular Hemoglobin 28 pg (25-35) Mean Corpuscular Hemoglobin Concent 32 g/dL (31-37) Red Cell Distribution Width 14.4 % (11.5-14.5) Platelet Count 123 x10^3/uL (140-400) Neutrophils (%) (Auto) 71 % (31-73) Lymphocytes (%) (Auto) 22 % (24-48) Monocytes (%) (Auto) 5 % (0-9) Eosinophils (%) (Auto) 1 % (0-3) Basophils (%) (Auto) 1 % (0-3) Neutrophils # (Auto) 4.4 x10^3uL (1.8-7.7) Lymphocytes # (Auto) 1.3 x10^3/uL (1.0-4.8) Monocytes # (Auto) 0.3 x10^3/uL (0.0-1.1) Eosinophils # (Auto) 0.1 x10^3/uL (0.0-0.7) Basophils # (Auto) 0.0 x10^3/uL (0.0-0.2) Sodium Level 143 mmol/L (136-145) Potassium Level 3.9 mmol/L (3.5-5.1) Chloride Level 103 mmol/L (98-107) Carbon Dioxide Level 35 mmol/L (21-32) Anion Gap 5 (6-14) Blood Urea Nitrogen 36 mg/dL (7-20) Creatinine 1.8 mg/dL (0.6-1.0) Estimated GFR (Cockcroft-Gault) 28.7 Glucose Level 206 mg/dL (70-99) Calcium Level 7.5 mg/dL (8.5-10.1) Phosphorus Level 3.1 mg/dL (2.6-4.7) Albumin 2.6 g/dL (3.4-5.0) Glucose (Fingerstick) 212 mg/dL (70-99) 298 mg/dL (70-99) 270 mg/dL (70-99) Test 01/29/19 06:10 01/29/19 07:32 White Blood Count 6.9 x10^3/uL (4.0-11.0) Red Blood Count 3.40 x10^6/uL (3.50-5.40) Hemoglobin 9.6 g/dL (12.0-15.5) Hematocrit 29.7 % (36.0-47.0) Mean Corpuscular Volume 88 fL (79-100) Mean Corpuscular Hemoglobin 28 pg (25-35) Mean Corpuscular Hemoglobin Concent 32 g/dL (31-37) Red Cell Distribution Width 14.7 % (11.5-14.5) Platelet Count 124 x10^3/uL (140-400) Neutrophils (%) (Auto) 68 % (31-73) Lymphocytes (%) (Auto) 25 % (24-48) Monocytes (%) (Auto) 6 % (0-9) Eosinophils (%) (Auto) 1 % (0-3) Basophils (%) (Auto) 0 % (0-3) Neutrophils # (Auto) 4.7 x10^3uL (1.8-7.7) Lymphocytes # (Auto) 1.7 x10^3/uL (1.0-4.8) Monocytes # (Auto) 0.4 x10^3/uL (0.0-1.1) Eosinophils # (Auto) 0.1 x10^3/uL (0.0-0.7) Basophils # (Auto) 0.0 x10^3/uL (0.0-0.2) Sodium Level 142 mmol/L (136-145) Potassium Level 4.2 mmol/L (3.5-5.1) Chloride Level 101 mmol/L (98-107) Carbon Dioxide Level 36 mmol/L (21-32) Anion Gap 5 (6-14) Blood Urea Nitrogen 33 mg/dL (7-20) Creatinine 1.8 mg/dL (0.6-1.0) Estimated GFR (Cockcroft-Gault) 28.7 Glucose Level 150 mg/dL (70-99) Calcium Level 7.7 mg/dL (8.5-10.1) Phosphorus Level 3.8 mg/dL (2.6-4.7) Albumin 2.8 g/dL (3.4-5.0) Glucose (Fingerstick) 144 mg/dL (70-99) Assessment and Plan Assessmemt and Plan Problems Medical Problems: (1) Acute and chronic respiratory failure ([id number]) Status: Acute (2) Anxiety Status: Acute (3) Hyperglycemia Status: Acute (4) Renal failure Status: Acute Comment Review of Relevant I have reviewed the following items kylee (where applicable) has been applied. Labs Laboratory Tests Test 01/27/19 11:10 01/27/19 11:26 01/27/19 16:56 01/27/19 20:29 O2 Saturation 93 % (92-99) Arterial Blood pH 7.41 (7.35-7.45) Arterial Blood pCO2 at Patient Temp 52 mmHg (35-46) Arterial Blood pO2 at Patient Temp 70 mmHg (65-108) Arterial Blood HCO3 32 mmol/L (21-28) Arterial Blood Base Excess 6 mmol/L (-3-3) Oxyhemoglobin 92.1 % Methemoglobin 0.2 % (0.0-1.9) Carbon Monoxide, Quantitative 1.0 % (0.0-1.9) FiO2 32 Glucose (Fingerstick) 215 mg/dL (70-99) 296 mg/dL (70-99) 279 mg/dL (70-99) Test 01/28/19 07:19 01/28/19 10:15 01/28/19 11:44 01/28/19 16:27 Glucose (Fingerstick) 158 mg/dL (70-99) 212 mg/dL (70-99) 298 mg/dL (70-99) White Blood Count 6.2 x10^3/uL (4.0-11.0) Red Blood Count 3.35 x10^6/uL (3.50-5.40) Hemoglobin 9.4 g/dL (12.0-15.5) Hematocrit 29.3 % (36.0-47.0) Mean Corpuscular Volume 87 fL (79-100) Mean Corpuscular Hemoglobin 28 pg (25-35) Mean Corpuscular Hemoglobin Concent 32 g/dL (31-37) Red Cell Distribution Width 14.4 % (11.5-14.5) Platelet Count 123 x10^3/uL (140-400) Neutrophils (%) (Auto) 71 % (31-73) Lymphocytes (%) (Auto) 22 % (24-48) Monocytes (%) (Auto) 5 % (0-9) Eosinophils (%) (Auto) 1 % (0-3) Basophils (%) (Auto) 1 % (0-3) Neutrophils # (Auto) 4.4 x10^3uL (1.8-7.7) Lymphocytes # (Auto) 1.3 x10^3/uL (1.0-4.8) Monocytes # (Auto) 0.3 x10^3/uL (0.0-1.1) Eosinophils # (Auto) 0.1 x10^3/uL (0.0-0.7) Basophils # (Auto) 0.0 x10^3/uL (0.0-0.2) Sodium Level 143 mmol/L (136-145) Potassium Level 3.9 mmol/L (3.5-5.1) Chloride Level 103 mmol/L (98-107) Carbon Dioxide Level 35 mmol/L (21-32) Anion Gap 5 (6-14) Blood Urea Nitrogen 36 mg/dL (7-20) Creatinine 1.8 mg/dL (0.6-1.0) Estimated GFR (Cockcroft-Gault) 28.7 Glucose Level 206 mg/dL (70-99) Calcium Level 7.5 mg/dL (8.5-10.1) Phosphorus Level 3.1 mg/dL (2.6-4.7) Albumin 2.6 g/dL (3.4-5.0) Test 01/28/19 20:12 01/29/19 06:10 01/29/19 07:32 Glucose (Fingerstick) 270 mg/dL (70-99) 144 mg/dL (70-99) White Blood Count 6.9 x10^3/uL (4.0-11.0) Red Blood Count 3.40 x10^6/uL (3.50-5.40) Hemoglobin 9.6 g/dL (12.0-15.5) Hematocrit 29.7 % (36.0-47.0) Mean Corpuscular Volume 88 fL (79-100) Mean Corpuscular Hemoglobin 28 pg (25-35) Mean Corpuscular Hemoglobin Concent 32 g/dL (31-37) Red Cell Distribution Width 14.7 % (11.5-14.5) Platelet Count 124 x10^3/uL (140-400) Neutrophils (%) (Auto) 68 % (31-73) Lymphocytes (%) (Auto) 25 % (24-48) Monocytes (%) (Auto) 6 % (0-9) Eosinophils (%) (Auto) 1 % (0-3) Basophils (%) (Auto) 0 % (0-3) Neutrophils # (Auto) 4.7 x10^3uL (1.8-7.7) Lymphocytes # (Auto) 1.7 x10^3/uL (1.0-4.8) Monocytes # (Auto) 0.4 x10^3/uL (0.0-1.1) Eosinophils # (Auto) 0.1 x10^3/uL (0.0-0.7) Basophils # (Auto) 0.0 x10^3/uL (0.0-0.2) Sodium Level 142 mmol/L (136-145) Potassium Level 4.2 mmol/L (3.5-5.1) Chloride Level 101 mmol/L (98-107) Carbon Dioxide Level 36 mmol/L (21-32) Anion Gap 5 (6-14) Blood Urea Nitrogen 33 mg/dL (7-20) Creatinine 1.8 mg/dL (0.6-1.0) Estimated GFR (Cockcroft-Gault) 28.7 Glucose Level 150 mg/dL (70-99) Calcium Level 7.7 mg/dL (8.5-10.1) Phosphorus Level 3.8 mg/dL (2.6-4.7) Albumin 2.8 g/dL (3.4-5.0) Laboratory Tests Test 01/28/19 10:15 01/28/19 11:44 01/28/19 16:27 01/28/19 20:12 White Blood Count 6.2 x10^3/uL (4.0-11.0) Red Blood Count 3.35 x10^6/uL (3.50-5.40) Hemoglobin 9.4 g/dL (12.0-15.5) Hematocrit 29.3 % (36.0-47.0) Mean Corpuscular Volume 87 fL (79-100) Mean Corpuscular Hemoglobin 28 pg (25-35) Mean Corpuscular Hemoglobin Concent 32 g/dL (31-37) Red Cell Distribution Width 14.4 % (11.5-14.5) Platelet Count 123 x10^3/uL (140-400) Neutrophils (%) (Auto) 71 % (31-73) Lymphocytes (%) (Auto) 22 % (24-48) Monocytes (%) (Auto) 5 % (0-9) Eosinophils (%) (Auto) 1 % (0-3) Basophils (%) (Auto) 1 % (0-3) Neutrophils # (Auto) 4.4 x10^3uL (1.8-7.7) Lymphocytes # (Auto) 1.3 x10^3/uL (1.0-4.8) Monocytes # (Auto) 0.3 x10^3/uL (0.0-1.1) Eosinophils # (Auto) 0.1 x10^3/uL (0.0-0.7) Basophils # (Auto) 0.0 x10^3/uL (0.0-0.2) Sodium Level 143 mmol/L (136-145) Potassium Level 3.9 mmol/L (3.5-5.1) Chloride Level 103 mmol/L (98-107) Carbon Dioxide Level 35 mmol/L (21-32) Anion Gap 5 (6-14) Blood Urea Nitrogen 36 mg/dL (7-20) Creatinine 1.8 mg/dL (0.6-1.0) Estimated GFR (Cockcroft-Gault) 28.7 Glucose Level 206 mg/dL (70-99) Calcium Level 7.5 mg/dL (8.5-10.1) Phosphorus Level 3.1 mg/dL (2.6-4.7) Albumin 2.6 g/dL (3.4-5.0) Glucose (Fingerstick) 212 mg/dL (70-99) 298 mg/dL (70-99) 270 mg/dL (70-99) Test 01/29/19 06:10 01/29/19 07:32 White Blood Count 6.9 x10^3/uL (4.0-11.0) Red Blood Count 3.40 x10^6/uL (3.50-5.40) Hemoglobin 9.6 g/dL (12.0-15.5) Hematocrit 29.7 % (36.0-47.0) Mean Corpuscular Volume 88 fL (79-100) Mean Corpuscular Hemoglobin 28 pg (25-35) Mean Corpuscular Hemoglobin Concent 32 g/dL (31-37) Red Cell Distribution Width 14.7 % (11.5-14.5) Platelet Count 124 x10^3/uL (140-400) Neutrophils (%) (Auto) 68 % (31-73) Lymphocytes (%) (Auto) 25 % (24-48) Monocytes (%) (Auto) 6 % (0-9) Eosinophils (%) (Auto) 1 % (0-3) Basophils (%) (Auto) 0 % (0-3) Neutrophils # (Auto) 4.7 x10^3uL (1.8-7.7) Lymphocytes # (Auto) 1.7 x10^3/uL (1.0-4.8) Monocytes # (Auto) 0.4 x10^3/uL (0.0-1.1) Eosinophils # (Auto) 0.1 x10^3/uL (0.0-0.7) Basophils # (Auto) 0.0 x10^3/uL (0.0-0.2) Sodium Level 142 mmol/L (136-145) Potassium Level 4.2 mmol/L (3.5-5.1) Chloride Level 101 mmol/L (98-107) Carbon Dioxide Level 36 mmol/L (21-32) Anion Gap 5 (6-14) Blood Urea Nitrogen 33 mg/dL (7-20) Creatinine 1.8 mg/dL (0.6-1.0) Estimated GFR (Cockcroft-Gault) 28.7 Glucose Level 150 mg/dL (70-99) Calcium Level 7.7 mg/dL (8.5-10.1) Phosphorus Level 3.8 mg/dL (2.6-4.7) Albumin 2.8 g/dL (3.4-5.0) Glucose (Fingerstick) 144 mg/dL (70-99) Microbiology 01/23/19 Blood Culture - Final, Complete NO GROWTH AFTER 5 DAYS Medications Current Medications Albuterol/ Ipratropium (Duoneb) 3 ml 1X ONCE NEB Last administered on at 08:04; Start 01/23/19 at 08:00; Stop 01/23/19 at 08:03; Status DC Methylprednisolone Sodium Succinate (SOLU-Medrol 125MG VIAL) 125 mg 1X ONCE IV Last administered on 01/23/19at 08:25; Start 01/23/19 at 08:00; Stop 01/23/19 at 08:03; Status DC Oxycodone/ Acetaminophen (Percocet 5/325) 1 tab 1X ONCE PO Last administered on 01/23/19at 09:01; Start 01/23/19 at 09:00; Stop 01/23/19 at 09:01; Status DC Ceftriaxone Sodium (Rocephin) 1 gm 1X ONCE IVP Last administered on 01/23/19at 09:00; Start 01/23/19 at 09:00; Stop 01/23/19 at 09:01; Status DC Magnesium Sulfate 50 ml @ 25 mls/hr 1X ONCE IV Last administered on 01/23/19at 15:06; Start 01/23/19 at 09:15; Stop 01/23/19 at 11:14; Status DC Sodium Chloride 1,000 ml @ 1,000 mls/hr 1X ONCE IV Last administered on at 15:07; Start 01/23/19 at 09:15; Stop 01/23/19 at 10:14; Status DC Vancomycin HCl 2 gm/Sodium Chloride 500 ml @ 250 mls/hr 1X ONCE IV Last administered on 01/23/19at 09:52; Start 01/23/19 at 09:30; Stop 01/23/19 at 11:29; Status DC Sodium Chloride 1,000 ml @ 150 mls/hr Q6H40M IV Last administered on 06:30; Start 01/23/19 at 09:30; Stop 01/24/19 at 09:29; Status DC Aspirin (Children'S Aspirin) 81 mg DAILY PO Last administered on 01/29/19 08: 37; Start 01/23/19 at 11:00 Bupropion HCl (Wellbutrin Sr) 150 mg BID PO Last administered on 01/29/19 08: 36; Start 01/23/19 at 11:00 Carvedilol (Coreg) 6.25 mg BIDWMEALS PO Last administered on 01/28/19 08:44; Start 01/23/19 at 11:00; Stop 01/28/19 at 13:32; Status DC Furosemide (Lasix) 40 mg DAILY PO Last administered on 01/29/19 08:38; Start 01/23/19 at 11:00 Nystatin (Nystop) 1 omid PRN BID PRN TP Yeast infection; Start 01/23/19 at 09:30 Potassium Chloride (Klor-Con) 40 meq DAILY PO Last administered on 01/24/19 08 :51; Start 01/23/19 at 11:00; Stop 01/25/19 at 14:17; Status DC Senna/Docusate Sodium (Senna Plus) 1 tab BID PO Last administered on 01/28/19 08:44; Start 01/23/19 at 11:00 Insulin Human Lispro (HumaLOG) 10 units TIDWMEALS SQ Last administered on 08:57; Start 01/23/19 at 12:00 Insulin Glargine (Lantus) 18 units QHS SQ Last administered on 01/28/19 21:16 ; Start 01/23/19 at 21:00 Lidocaine (Lidoderm) 1 patch QHS TD ; Start 01/23/19 at 21:00; Stop 01/23/19 at 21 :00; Status DC Montelukast Sodium (Singulair) 10 mg QHS PO Last administered on 01/28/19 21: 09; Start 01/23/19 at 21:00 Spironolactone (Aldactone) 25 mg DAILY PO Last administered on 01/24/19 08:51 ; Start 01/23/19 at 11:00; Stop 01/25/19 at 14:18; Status DC Topiramate (Topamax) 25 mg QHS PO Last administered on 01/28/19 21:09; Start 01/23/19 at 21:00 Non-Formulary Medication ([Aspirin] ) 325 mg DAILYWBKFT PO ; Start 01/24/19 at 08:00; Status UNV Pantoprazole Sodium (Protonix) 40 mg DAILYAC PO Last administered on 01/29/19 08:37; Start 01/23/19 at 11:00 Non-Formulary Medication (Ipratropium/ Albuterol Sulfate (Combivent Respimat Inhal)) 2 inh QID IH ; Start 01/23/19 at 13:00; Status UNV Albuterol/ Ipratropium (Duoneb) 3 ml RTQID NEB Last administered on 01/29/19 07:31; Start 01/23/19 at 12:00 Insulin Human Lispro (HumaLOG) 0-5 UNITS TIDWMEALS SQ Last administered on 01/28 16:54; Start 01/23/19 at 12:00 Dextrose (Dextrose 50%-Water Syringe) 12.5 gm PRN Q15MIN PRN IV SEE COMMENTS; Start 01/23/19 at 10:15 Lidocaine/Sodium Bicarbonate (Buffered Lidocaine 1%) 3 ml STK-MED ONCE .ROUTE ; Start 01/23/19 at 13:44; Stop 01/23/19 at 13:45; Status DC Lidocaine/Sodium Bicarbonate (Buffered Lidocaine 1%) 3 ml 1X ONCE INJ Last administered on 01/23/19 14:01; Start 01/23/19 at 14:00; Stop 01/23/19 at 14:01; Status DC Lidocaine (Lidoderm) 1 patch DAILY TD Last administered on 01/29/19 08:41; Start 01/23/19 at 18:00 Miscellaneous (Lidoderm Patch Removal) 1 ea QHS MC Last administered on 21:00; Start 01/23/19 at 21:00 Oxycodone/ Acetaminophen (Percocet 5/325) 1 tab PRN Q6HRS PRN PO PAIN Last administered on 01/28/19 10:10; Start 01/23/19 at 22:45; Stop 01/28/19 at 11:13 ; Status DC Quetiapine Fumarate (SEROquel) 25 mg QHS PO ; Start 01/24/19 at 21:00; Stop 08/04 at 21:00; Status DC Quetiapine Fumarate (SEROquel) 25 mg QHS PO Last administered on 01/28/19at 21: 08; Start 01/23/19 at 23:00 Enoxaparin Sodium (Lovenox 60mg Syringe) 60 mg Q12HR SQ Last administered on at 08:40; Start 01/24/19 at 11:30 Magnesium Sulfate 50 ml @ 25 mls/hr 1X ONCE IV Last administered on 01/24/19at 17:05; Start 01/24/19 at 16:00; Stop 01/24/19 at 17:59; Status DC Ceftriaxone Sodium (Rocephin) 1 gm Q24H IVP Last administered on 01/28/19at 16: 39; Start 01/24/19 at 16:00 Methylprednisolone Sodium Succinate (SOLU-Medrol 40MG VIAL) 80 mg Q8HRS IV Last administered on 01/25/19at 05:04; Start 01/24/19 at 17:00; Stop 01/25/19 at 11:55; Status DC Ibuprofen (Motrin) 600 mg PRN Q8HRS PRN PO INFLAMMATION Last administered on at 03:13; Start 01/24/19 at 23:15; Stop 01/28/19 at 12:06; Status DC Cyclobenzaprine HCl (Flexeril) 10 mg PRN Q12HR PRN PO MUSCLE SPASMS Last administered on 01/29/19at 08:43; Start 01/24/19 at 23:15 Buspirone HCl (Buspar) 10 mg BID PO Last administered on 01/29/19 08:37; Start 01/25/19 at 11:00 Sodium Polystyrene Sulfonate (Kayexalate) 30 gm 1X ONCE PO Last administered on 01/25/19at 11:19; Start 01/25/19 at 11:00; Stop 01/25/19 at 11:03; Status DC Methylprednisolone Sodium Succinate (SOLU-Medrol 40MG VIAL) 40 mg Q8HRS IV Last administered on 4/12/19at 06:23; Start 01/25/19 at 14:00; Stop 01/26/19 at 07:00; Status DC Sodium Polystyrene Sulfonate (Kayexalate) 30 gm 1X ONCE PO ; Start 01/25/19 at 14:30; Stop 01/25/19 at 14:31; Status DC Lactobacillus Rhamnosus (Culturelle) 1 cap BID PO Last administered on at 08:37; Start 01/25/19 at 21:00 Hydralazine HCl (Apresoline Inj) 10 mg PRN Q6HRS PRN IVP ELEVATED BP, SEE COMMENTS Last administered on 01/26/19at 12:41; Start 01/25/19 at 17:15; Stop 10/04 at 17:10; Status DC Gabapentin (Neurontin) 100 mg TID@0900,1300,1800 PO Last administered on 08:37; Start 01/25/19 at 18:00 Gabapentin (Neurontin) 200 mg QHS PO Last administered on 01/28/19at 21:08; Start 01/25/19 at 21:00 Methylprednisolone Sodium Succinate (SOLU-Medrol 40MG VIAL) 40 mg Q12HR IV Last administered on 01/27/19at 09:34; Start 01/26/19 at 21:00; Stop 01/27/19 at 13:24; Status DC Hydralazine HCl (Apresoline Inj) 10 mg PRN Q4HRS PRN IVP ELEVATED BP, SEE COMMENTS Last administered on 01/29/19at 08:39; Start 01/26/19 at 17:15 Guaifenesin (Mucinex) 600 mg BID PO Last administered on 01/29/19 08:37; Start 01/27/19 at 21:00 Prednisone (Prednisone) 40 mg DAILY PO Last administered on 01/29/19 08:37; Start 01/28/19 at 09:00 Alteplase, Recombinant (Cathflo For Central Catheter Clearance) 1 mg 1X ONCE INT CAT Last administered on 01/28/19at 08:39; Start 01/28/19 at 07:45; Stop at 07:49; Status DC Oxycodone/ Acetaminophen (Percocet 5/325) 2 tab PRN Q6HRS PRN PO PAIN Last administered on 01/29/19at 03:35; Start 01/28/19 at 11:15 Metoprolol Succinate (Toprol Xl) 25 mg 1X ONCE PO ; Start 01/28/19 at 13:30; Stop 01/28/19 at 13:31; Status UNV Carvedilol (Coreg) 12.5 mg BIDWMEALS PO Last administered on 01/29/19at 08:38; Start 01/28/19 at 17:00 Clonidine HCl (Catapres Tts-2) 1 patch WEEKLY TD Last administered on at 16:40; Start 01/28/19 at 14:00 Active Scripts Active Lidocaine 1 Each Adh..patch 1 Patch TD QHS 30 Days Senna-Time S Tablet (Sennosides/Docusate Sodium) 1 Each Tablet 1 Tab PO BID 14 Days Levemir Flextouch (Insulin Detemir) 100 Unit/1 Ml Insuln.pen 18 Units SQ QHS Novolog Flexpen (Insulin Aspart) 100 Unit/1 Ml Insuln.pen 10 Units SQ TIDAC Topamax (Topiramate) 25 Mg Tablet 25 Mg PO HS Combivent Respimat Inhal (Ipratropium/Albuterol Sulfate) 4 Gm Aer.w.adap 2 Inh IH QID Lasix (Furosemide) 40 Mg Tablet 1 Tab PO DAILY Aldactone (Spironolactone) 25 Mg Tablet 25 Mg PO DAILY Klor-Con M20 (Potassium Chloride) 20 Meq Tablet.er 40 Meq PO DAILY Nystop (Nystatin) 1 Omid Omid 1 Omid TP BID PRN [Aspirin] 325 MG Tablet. 325 Mg PO DAILYWBKFT Reported Wellbutrin Sr (Bupropion Hcl) 150 Mg Tablet.er 1 Tab PO BID Aspirin 81 Mg Tab.chew 1 Tab PO DAILY Montelukast Sodium Tablet (Montelukast Sodium) 10 Mg Tablet 10 Mg PO HS Carvedilol (Carvedilol) 6.25 Mg Tablet 6.25 Mg PO BIDWMEALS Pantoprazole Sodium 40 Mg Tablet. 40 Mg PO DAILY Vitals/I & O Vital Sign - Last 24 Hours 01/28/19 01/28/19 01/28/19 01/28/19 10:10 11:06 12:39 15:35 Temp 98.8 97.7 98.8 97.7 Pulse 104 112 Resp 17 17 B/P (MAP) 193/83 (119) 207/81 (123) Pulse Ox 100 95 98 95 O2 Delivery Nasal Cannula Nasal Cannula Nasal Cannula Nasal Cannula O2 Flow Rate 3.0 3.0 2.0 3.0 01/28/19 01/28/19 01/28/19 01/28/19 16:20 16:49 19:30 20:00 Temp 98.0 98.0 Pulse 112 71 Resp 20 B/P (MAP) 207/81 134/71 (92) Pulse Ox 94 93 O2 Delivery Nasal Cannula Nasal Cannula Nasal Cannula O2 Flow Rate 2.0 3.0 3.0 01/28/19 01/28/19 01/28/19 01/29/19 20:11 21:08 23:35 03:35 Temp 98.3 98.3 Pulse 77 Resp 20 B/P (MAP) 151/62 (91) Pulse Ox 93 93 93 O2 Delivery Nasal Cannula Nasal Cannula Nasal Cannula Nasal Cannula O2 Flow Rate 3.0 3.0 3.0 3.0 01/29/19 01/29/19 01/29/19 01/29/19 03:35 04:44 07:00 07:31 Temp 97.7 97.7 97.7 97.7 Pulse 74 72 Resp 20 20 B/P (MAP) 112/73 (86) 194/74 (114) Pulse Ox 95 93 95 95 O2 Delivery Nasal Cannula Nasal Cannula Nasal Cannula Nasal Cannula O2 Flow Rate 3.0 3.0 3.0 3.0 01/29/19 01/29/19 08:38 08:39 Pulse 72 72 B/P (MAP) 194/74 194/74 Intake and Output 01/28/19 01/28/19 01/29/19 14:59 22:59 06:59 Intake Total 700 ml 600 ml 350 ml Balance 700 ml 600 ml 350 ml ACE ZELAYA MD Jan 29, 2019 09:10
--- NOTE | 2019-01-29 10:10 | PDOC ---
PROGRESS NOTES Subjective Subjective She feels better with her breathing. Objective Objective Vital Signs Date Time Temp Pulse Resp B/P (MAP) Pulse Ox O2 Delivery O2 Flow Rate FiO2 01/29/19 08:39 72 194/74 01/29/19 07:31 95 Nasal Cannula 3.0 01/29/19 07:00 97.7 20 97.7 Intake and Output 01/29/19 06:59 Intake Total 1650 ml Balance 1650 ml Intake Oral 1650 ml # Voids 4 # Bowel Movements 1 Physical Exam Physical Exam She is comfortable supine in bed and alert and continues to get up with roller walker.She continues with painfully limited lumbar spine ROM. Assessment Assessment Problems Medical Problems: (1) Acute and chronic respiratory failure ([id number]) Status: Acute (2) Anxiety Status: Acute (3) Hyperglycemia Status: Acute (4) Renal failure Status: Acute Plan Plan of [facility] when medically stable. Comment Review of Relevant I have reviewed the following items kylee (where applicable) has been applied. Labs Laboratory Tests Test 01/27/19 11:10 01/27/19 11:26 01/27/19 16:56 01/27/19 20:29 O2 Saturation 93 % (92-99) Arterial Blood pH 7.41 (7.35-7.45) Arterial Blood pCO2 at Patient Temp 52 mmHg (35-46) Arterial Blood pO2 at Patient Temp 70 mmHg (65-108) Arterial Blood HCO3 32 mmol/L (21-28) Arterial Blood Base Excess 6 mmol/L (-3-3) Oxyhemoglobin 92.1 % Methemoglobin 0.2 % (0.0-1.9) Carbon Monoxide, Quantitative 1.0 % (0.0-1.9) FiO2 32 Glucose (Fingerstick) 215 mg/dL (70-99) 296 mg/dL (70-99) 279 mg/dL (70-99) Test 01/28/19 07:19 01/28/19 10:15 01/28/19 11:44 01/28/19 16:27 Glucose (Fingerstick) 158 mg/dL (70-99) 212 mg/dL (70-99) 298 mg/dL (70-99) White Blood Count 6.2 x10^3/uL (4.0-11.0) Red Blood Count 3.35 x10^6/uL (3.50-5.40) Hemoglobin 9.4 g/dL (12.0-15.5) Hematocrit 29.3 % (36.0-47.0) Mean Corpuscular Volume 87 fL (79-100) Mean Corpuscular Hemoglobin 28 pg (25-35) Mean Corpuscular Hemoglobin Concent 32 g/dL (31-37) Red Cell Distribution Width 14.4 % (11.5-14.5) Platelet Count 123 x10^3/uL (140-400) Neutrophils (%) (Auto) 71 % (31-73) Lymphocytes (%) (Auto) 22 % (24-48) Monocytes (%) (Auto) 5 % (0-9) Eosinophils (%) (Auto) 1 % (0-3) Basophils (%) (Auto) 1 % (0-3) Neutrophils # (Auto) 4.4 x10^3uL (1.8-7.7) Lymphocytes # (Auto) 1.3 x10^3/uL (1.0-4.8) Monocytes # (Auto) 0.3 x10^3/uL (0.0-1.1) Eosinophils # (Auto) 0.1 x10^3/uL (0.0-0.7) Basophils # (Auto) 0.0 x10^3/uL (0.0-0.2) Sodium Level 143 mmol/L (136-145) Potassium Level 3.9 mmol/L (3.5-5.1) Chloride Level 103 mmol/L (98-107) Carbon Dioxide Level 35 mmol/L (21-32) Anion Gap 5 (6-14) Blood Urea Nitrogen 36 mg/dL (7-20) Creatinine 1.8 mg/dL (0.6-1.0) Estimated GFR (Cockcroft-Gault) 28.7 Glucose Level 206 mg/dL (70-99) Calcium Level 7.5 mg/dL (8.5-10.1) Phosphorus Level 3.1 mg/dL (2.6-4.7) Albumin 2.6 g/dL (3.4-5.0) Test 01/28/19 20:12 01/29/19 06:10 01/29/19 07:32 Glucose (Fingerstick) 270 mg/dL (70-99) 144 mg/dL (70-99) White Blood Count 6.9 x10^3/uL (4.0-11.0) Red Blood Count 3.40 x10^6/uL (3.50-5.40) Hemoglobin 9.6 g/dL (12.0-15.5) Hematocrit 29.7 % (36.0-47.0) Mean Corpuscular Volume 88 fL (79-100) Mean Corpuscular Hemoglobin 28 pg (25-35) Mean Corpuscular Hemoglobin Concent 32 g/dL (31-37) Red Cell Distribution Width 14.7 % (11.5-14.5) Platelet Count 124 x10^3/uL (140-400) Neutrophils (%) (Auto) 68 % (31-73) Lymphocytes (%) (Auto) 25 % (24-48) Monocytes (%) (Auto) 6 % (0-9) Eosinophils (%) (Auto) 1 % (0-3) Basophils (%) (Auto) 0 % (0-3) Neutrophils # (Auto) 4.7 x10^3uL (1.8-7.7) Lymphocytes # (Auto) 1.7 x10^3/uL (1.0-4.8) Monocytes # (Auto) 0.4 x10^3/uL (0.0-1.1) Eosinophils # (Auto) 0.1 x10^3/uL (0.0-0.7) Basophils # (Auto) 0.0 x10^3/uL (0.0-0.2) Sodium Level 142 mmol/L (136-145) Potassium Level 4.2 mmol/L (3.5-5.1) Chloride Level 101 mmol/L (98-107) Carbon Dioxide Level 36 mmol/L (21-32) Anion Gap 5 (6-14) Blood Urea Nitrogen 33 mg/dL (7-20) Creatinine 1.8 mg/dL (0.6-1.0) Estimated GFR (Cockcroft-Gault) 28.7 Glucose Level 150 mg/dL (70-99) Calcium Level 7.7 mg/dL (8.5-10.1) Phosphorus Level 3.8 mg/dL (2.6-4.7) Albumin 2.8 g/dL (3.4-5.0) Laboratory Tests Test 01/28/19 10:15 01/28/19 11:44 01/28/19 16:27 01/28/19 20:12 White Blood Count 6.2 x10^3/uL (4.0-11.0) Red Blood Count 3.35 x10^6/uL (3.50-5.40) Hemoglobin 9.4 g/dL (12.0-15.5) Hematocrit 29.3 % (36.0-47.0) Mean Corpuscular Volume 87 fL (79-100) Mean Corpuscular Hemoglobin 28 pg (25-35) Mean Corpuscular Hemoglobin Concent 32 g/dL (31-37) Red Cell Distribution Width 14.4 % (11.5-14.5) Platelet Count 123 x10^3/uL (140-400) Neutrophils (%) (Auto) 71 % (31-73) Lymphocytes (%) (Auto) 22 % (24-48) Monocytes (%) (Auto) 5 % (0-9) Eosinophils (%) (Auto) 1 % (0-3) Basophils (%) (Auto) 1 % (0-3) Neutrophils # (Auto) 4.4 x10^3uL (1.8-7.7) Lymphocytes # (Auto) 1.3 x10^3/uL (1.0-4.8) Monocytes # (Auto) 0.3 x10^3/uL (0.0-1.1) Eosinophils # (Auto) 0.1 x10^3/uL (0.0-0.7) Basophils # (Auto) 0.0 x10^3/uL (0.0-0.2) Sodium Level 143 mmol/L (136-145) Potassium Level 3.9 mmol/L (3.5-5.1) Chloride Level 103 mmol/L (98-107) Carbon Dioxide Level 35 mmol/L (21-32) Anion Gap 5 (6-14) Blood Urea Nitrogen 36 mg/dL (7-20) Creatinine 1.8 mg/dL (0.6-1.0) Estimated GFR (Cockcroft-Gault) 28.7 Glucose Level 206 mg/dL (70-99) Calcium Level 7.5 mg/dL (8.5-10.1) Phosphorus Level 3.1 mg/dL (2.6-4.7) Albumin 2.6 g/dL (3.4-5.0) Glucose (Fingerstick) 212 mg/dL (70-99) 298 mg/dL (70-99) 270 mg/dL (70-99) Test 01/29/19 06:10 01/29/19 07:32 White Blood Count 6.9 x10^3/uL (4.0-11.0) Red Blood Count 3.40 x10^6/uL (3.50-5.40) Hemoglobin 9.6 g/dL (12.0-15.5) Hematocrit 29.7 % (36.0-47.0) Mean Corpuscular Volume 88 fL (79-100) Mean Corpuscular Hemoglobin 28 pg (25-35) Mean Corpuscular Hemoglobin Concent 32 g/dL (31-37) Red Cell Distribution Width 14.7 % (11.5-14.5) Platelet Count 124 x10^3/uL (140-400) Neutrophils (%) (Auto) 68 % (31-73) Lymphocytes (%) (Auto) 25 % (24-48) Monocytes (%) (Auto) 6 % (0-9) Eosinophils (%) (Auto) 1 % (0-3) Basophils (%) (Auto) 0 % (0-3) Neutrophils # (Auto) 4.7 x10^3uL (1.8-7.7) Lymphocytes # (Auto) 1.7 x10^3/uL (1.0-4.8) Monocytes # (Auto) 0.4 x10^3/uL (0.0-1.1) Eosinophils # (Auto) 0.1 x10^3/uL (0.0-0.7) Basophils # (Auto) 0.0 x10^3/uL (0.0-0.2) Sodium Level 142 mmol/L (136-145) Potassium Level 4.2 mmol/L (3.5-5.1) Chloride Level 101 mmol/L (98-107) Carbon Dioxide Level 36 mmol/L (21-32) Anion Gap 5 (6-14) Blood Urea Nitrogen 33 mg/dL (7-20) Creatinine 1.8 mg/dL (0.6-1.0) Estimated GFR (Cockcroft-Gault) 28.7 Glucose Level 150 mg/dL (70-99) Calcium Level 7.7 mg/dL (8.5-10.1) Phosphorus Level 3.8 mg/dL (2.6-4.7) Albumin 2.8 g/dL (3.4-5.0) Glucose (Fingerstick) 144 mg/dL (70-99) Microbiology 01/23/19 Blood Culture - Final, Complete NO GROWTH AFTER 5 DAYS Medications Current Medications Albuterol/ Ipratropium (Duoneb) 3 ml 1X ONCE NEB Last administered on at 08:04; Start 01/23/19 at 08:00; Stop 01/23/19 at 08:03; Status DC Methylprednisolone Sodium Succinate (SOLU-Medrol 125MG VIAL) 125 mg 1X ONCE IV Last administered on 01/23/19at 08:25; Start 01/23/19 at 08:00; Stop 01/23/19 at 08:03; Status DC Oxycodone/ Acetaminophen (Percocet 5/325) 1 tab 1X ONCE PO Last administered on 01/23/19at 09:01; Start 01/23/19 at 09:00; Stop 01/23/19 at 09:01; Status DC Ceftriaxone Sodium (Rocephin) 1 gm 1X ONCE IVP Last administered on 01/23/19at 09:00; Start 01/23/19 at 09:00; Stop 01/23/19 at 09:01; Status DC Magnesium Sulfate 50 ml @ 25 mls/hr 1X ONCE IV Last administered on 01/23/19at 15:06; Start 01/23/19 at 09:15; Stop 01/23/19 at 11:14; Status DC Sodium Chloride 1,000 ml @ 1,000 mls/hr 1X ONCE IV Last administered on at 15:07; Start 01/23/19 at 09:15; Stop 01/23/19 at 10:14; Status DC Vancomycin HCl 2 gm/Sodium Chloride 500 ml @ 250 mls/hr 1X ONCE IV Last administered on 01/23/19at 09:52; Start 01/23/19 at 09:30; Stop 01/23/19 at 11:29; Status DC Sodium Chloride 1,000 ml @ 150 mls/hr Q6H40M IV Last administered on 06:30; Start 01/23/19 at 09:30; Stop 01/24/19 at 09:29; Status DC Aspirin (Children'S Aspirin) 81 mg DAILY PO Last administered on 01/29/19 08: 37; Start 01/23/19 at 11:00 Bupropion HCl (Wellbutrin Sr) 150 mg BID PO Last administered on 01/29/19 08: 36; Start 01/23/19 at 11:00 Carvedilol (Coreg) 6.25 mg BIDWMEALS PO Last administered on 01/28/19 08:44; Start 01/23/19 at 11:00; Stop 01/28/19 at 13:32; Status DC Furosemide (Lasix) 40 mg DAILY PO Last administered on 01/29/19 08:38; Start 01/23/19 at 11:00 Nystatin (Nystop) 1 omid PRN BID PRN TP Yeast infection; Start 01/23/19 at 09:30 Potassium Chloride (Klor-Con) 40 meq DAILY PO Last administered on 01/24/19 08 :51; Start 01/23/19 at 11:00; Stop 01/25/19 at 14:17; Status DC Senna/Docusate Sodium (Senna Plus) 1 tab BID PO Last administered on 01/28/19 08:44; Start 01/23/19 at 11:00 Insulin Human Lispro (HumaLOG) 10 units TIDWMEALS SQ Last administered on 08:57; Start 01/23/19 at 12:00 Insulin Glargine (Lantus) 18 units QHS SQ Last administered on 01/28/19 21:16 ; Start 01/23/19 at 21:00 Lidocaine (Lidoderm) 1 patch QHS TD ; Start 01/23/19 at 21:00; Stop 01/23/19 at 21 :00; Status DC Montelukast Sodium (Singulair) 10 mg QHS PO Last administered on 01/28/19 21: 09; Start 01/23/19 at 21:00 Spironolactone (Aldactone) 25 mg DAILY PO Last administered on 01/24/19 08:51 ; Start 01/23/19 at 11:00; Stop 01/25/19 at 14:18; Status DC Topiramate (Topamax) 25 mg QHS PO Last administered on 01/28/19 21:09; Start 01/23/19 at 21:00 Non-Formulary Medication ([Aspirin] ) 325 mg DAILYWBKFT PO ; Start 01/24/19 at 08:00; Status UNV Pantoprazole Sodium (Protonix) 40 mg DAILYAC PO Last administered on 01/29/19 08:37; Start 01/23/19 at 11:00 Non-Formulary Medication (Ipratropium/ Albuterol Sulfate (Combivent Respimat Inhal)) 2 inh QID IH ; Start 01/23/19 at 13:00; Status UNV Albuterol/ Ipratropium (Duoneb) 3 ml RTQID NEB Last administered on 01/29/19 07:31; Start 01/23/19 at 12:00 Insulin Human Lispro (HumaLOG) 0-5 UNITS TIDWMEALS SQ Last administered on 01/28at 16:54; Start 01/23/19 at 12:00 Dextrose (Dextrose 50%-Water Syringe) 12.5 gm PRN Q15MIN PRN IV SEE COMMENTS; Start 01/23/19 at 10:15 Lidocaine/Sodium Bicarbonate (Buffered Lidocaine 1%) 3 ml STK-MED ONCE .ROUTE ; Start 01/23/19 at 13:44; Stop 01/23/19 at 13:45; Status DC Lidocaine/Sodium Bicarbonate (Buffered Lidocaine 1%) 3 ml 1X ONCE INJ Last administered on 01/23/19 14:01; Start 01/23/19 at 14:00; Stop 01/23/19 at 14:01; Status DC Lidocaine (Lidoderm) 1 patch DAILY TD Last administered on 01/29/19 08:41; Start 01/23/19 at 18:00 Miscellaneous (Lidoderm Patch Removal) 1 ea QHS MC Last administered on 21:00; Start 01/23/19 at 21:00 Oxycodone/ Acetaminophen (Percocet 5/325) 1 tab PRN Q6HRS PRN PO PAIN Last administered on 01/28/19 10:10; Start 01/23/19 at 22:45; Stop 01/28/19 at 11:13 ; Status DC Quetiapine Fumarate (SEROquel) 25 mg QHS PO ; Start 01/24/19 at 21:00; Stop 08/04 at 21:00; Status DC Quetiapine Fumarate (SEROquel) 25 mg QHS PO Last administered on 01/28/19at 21: 08; Start 01/23/19 at 23:00 Enoxaparin Sodium (Lovenox 60mg Syringe) 60 mg Q12HR SQ Last administered on at 08:40; Start 01/24/19 at 11:30 Magnesium Sulfate 50 ml @ 25 mls/hr 1X ONCE IV Last administered on 01/24/19at 17:05; Start 01/24/19 at 16:00; Stop 01/24/19 at 17:59; Status DC Ceftriaxone Sodium (Rocephin) 1 gm Q24H IVP Last administered on 01/28/19at 16: 39; Start 01/24/19 at 16:00 Methylprednisolone Sodium Succinate (SOLU-Medrol 40MG VIAL) 80 mg Q8HRS IV Last administered on 01/25/19at 05:04; Start 01/24/19 at 17:00; Stop 01/25/19 at 11:55; Status DC Ibuprofen (Motrin) 600 mg PRN Q8HRS PRN PO INFLAMMATION Last administered on at 03:13; Start 01/24/19 at 23:15; Stop 01/28/19 at 12:06; Status DC Cyclobenzaprine HCl (Flexeril) 10 mg PRN Q12HR PRN PO MUSCLE SPASMS Last administered on 01/29/19at 08:43; Start 01/24/19 at 23:15 Buspirone HCl (Buspar) 10 mg BID PO Last administered on 01/29/19at 08:37; Start 01/25/19 at 11:00 Sodium Polystyrene Sulfonate (Kayexalate) 30 gm 1X ONCE PO Last administered on 01/25/19at 11:19; Start 01/25/19 at 11:00; Stop 01/25/19 at 11:03; Status DC Methylprednisolone Sodium Succinate (SOLU-Medrol 40MG VIAL) 40 mg Q8HRS IV Last administered on 01/26/19at 06:23; Start 01/25/19 at 14:00; Stop 01/26/19 at 07:00; Status DC Sodium Polystyrene Sulfonate (Kayexalate) 30 gm 1X ONCE PO ; Start 01/25/19 at 14:30; Stop 01/25/19 at 14:31; Status DC Lactobacillus Rhamnosus (Culturelle) 1 cap BID PO Last administered on 08:37; Start 01/25/19 at 21:00 Hydralazine HCl (Apresoline Inj) 10 mg PRN Q6HRS PRN IVP ELEVATED BP, SEE COMMENTS Last administered on 01/26/19at 12:41; Start 01/25/19 at 17:15; Stop 10/04 at 17:10; Status DC Gabapentin (Neurontin) 100 mg TID@0900,1300,1800 PO Last administered on 08:37; Start 01/25/19 at 18:00 Gabapentin (Neurontin) 200 mg QHS PO Last administered on 01/28/19at 21:08; Start 01/25/19 at 21:00 Methylprednisolone Sodium Succinate (SOLU-Medrol 40MG VIAL) 40 mg Q12HR IV Last administered on 01/27/19at 09:34; Start 01/26/19 at 21:00; Stop 01/27/19 at 13:24; Status DC Hydralazine HCl (Apresoline Inj) 10 mg PRN Q4HRS PRN IVP ELEVATED BP, SEE COMMENTS Last administered on 01/29/19at 08:39; Start 01/26/19 at 17:15 Guaifenesin (Mucinex) 600 mg BID PO Last administered on 01/29/19 08:37; Start 01/27/19 at 21:00 Prednisone (Prednisone) 40 mg DAILY PO Last administered on 01/29/19 08:37; Start 01/28/19 at 09:00 Alteplase, Recombinant (Cathflo For Central Catheter Clearance) 1 mg 1X ONCE INT CAT Last administered on 01/28/19 08:39; Start 01/28/19 at 07:45; Stop at 07:49; Status DC Oxycodone/ Acetaminophen (Percocet 5/325) 2 tab PRN Q6HRS PRN PO PAIN Last administered on 01/29/19at 03:35; Start 01/28/19 at 11:15 Metoprolol Succinate (Toprol Xl) 25 mg 1X ONCE PO ; Start 01/28/19 at 13:30; Stop 01/28/19 at 13:31; Status UNV Carvedilol (Coreg) 12.5 mg BIDWMEALS PO Last administered on 01/29/19at 08:38; Start 01/28/19 at 17:00 Clonidine HCl (Catapres Tts-2) 1 patch WEEKLY TD Last administered on at 16:40; Start 01/28/19 at 14:00 Active Scripts Active Lidocaine 1 Each Adh..patch 1 Patch TD QHS 30 Days Senna-Time S Tablet (Sennosides/Docusate Sodium) 1 Each Tablet 1 Tab PO BID 14 Days Levemir Flextouch (Insulin Detemir) 100 Unit/1 Ml Insuln.pen 18 Units SQ QHS Novolog Flexpen (Insulin Aspart) 100 Unit/1 Ml Insuln.pen 10 Units SQ TIDAC Topamax (Topiramate) 25 Mg Tablet 25 Mg PO HS Combivent Respimat Inhal (Ipratropium/Albuterol Sulfate) 4 Gm Aer.w.adap 2 Inh IH QID Lasix (Furosemide) 40 Mg Tablet 1 Tab PO DAILY Aldactone (Spironolactone) 25 Mg Tablet 25 Mg PO DAILY Klor-Con M20 (Potassium Chloride) 20 Meq Tablet.er 40 Meq PO DAILY Nystop (Nystatin) 1 Omid Omid 1 Omid TP BID PRN [Aspirin] 325 MG Tablet. 325 Mg PO DAILYWBKFT Reported Wellbutrin Sr (Bupropion Hcl) 150 Mg Tablet.er 1 Tab PO BID Aspirin 81 Mg Tab.chew 1 Tab PO DAILY Montelukast Sodium Tablet (Montelukast Sodium) 10 Mg Tablet 10 Mg PO HS Carvedilol (Carvedilol) 6.25 Mg Tablet 6.25 Mg PO BIDWMEALS Pantoprazole Sodium 40 Mg Tablet. 40 Mg PO DAILY Vitals/I & O Vital Sign - Last 24 Hours 01/28/19 01/28/19 01/28/19 01/28/19 10:10 11:06 12:39 15:35 Temp 98.8 97.7 98.8 97.7 Pulse 104 112 Resp 17 17 B/P (MAP) 193/83 (119) 207/81 (123) Pulse Ox 100 95 98 95 O2 Delivery Nasal Cannula Nasal Cannula Nasal Cannula Nasal Cannula O2 Flow Rate 3.0 3.0 2.0 3.0 01/28/19 01/28/19 01/28/19 01/28/19 16:20 16:49 19:30 20:00 Temp 98.0 98.0 Pulse 112 71 Resp 20 B/P (MAP) 207/81 134/71 (92) Pulse Ox 94 93 O2 Delivery Nasal Cannula Nasal Cannula Nasal Cannula O2 Flow Rate 2.0 3.0 3.0 01/28/19 01/28/19 01/28/19 01/29/19 20:11 21:08 23:35 03:35 Temp 98.3 98.3 Pulse 77 Resp 20 B/P (MAP) 151/62 (91) Pulse Ox 93 93 93 O2 Delivery Nasal Cannula Nasal Cannula Nasal Cannula Nasal Cannula O2 Flow Rate 3.0 3.0 3.0 3.0 01/29/19 01/29/19 01/29/19 01/29/19 03:35 04:44 07:00 07:31 Temp 97.7 97.7 97.7 97.7 Pulse 74 72 Resp 20 20 B/P (MAP) 112/73 (86) 194/74 (114) Pulse Ox 95 93 95 95 O2 Delivery Nasal Cannula Nasal Cannula Nasal Cannula Nasal Cannula O2 Flow Rate 3.0 3.0 3.0 3.0 01/29/19 01/29/19 08:38 08:39 Pulse 72 72 B/P (MAP) 194/74 194/74 Intake and Output 01/28/19 01/28/19 01/29/19 14:59 22:59 06:59 Intake Total 700 ml 600 ml 350 ml Balance 700 ml 600 ml 350 ml KIERA MOREIRA MD Jan 29, 2019 10:10
[2019-01-29 11:00] VITALS: BP 175/68
--- NOTE | 2019-01-29 12:18 | PDOC ---
PROGRESS NOTES Assessment Problems Medical Problems: (1) Acute and chronic respiratory failure ([id number]) Status: Acute (2) Anxiety Status: Acute (3) Hyperglycemia Status: Acute (4) Renal failure Status: Acute Chronic back pain Essential tremor Chronic headaches Chronic neck pain, history of cervical fracture, negative cervical MRI Generalized weakness. Hypertension, diabetes, chronic obstructive pulmonary disease Plan Continue rehabilitation modalities and current medications, I have nothing else to offer for her care Subjective Pain is better Objective Vital Signs Date Time Temp Pulse Resp B/P (MAP) Pulse Ox O2 Delivery O2 Flow Rate FiO2 01/29/19 12:03 18 96 Nasal Cannula 3.0 01/29/19 11:00 97.7 87 175/68 (103) 97.7 Intake and Output 01/29/19 07:00 Intake Total 1650 ml Balance 1650 ml Intake Oral 1650 ml # Voids 4 # Bowel Movements 1 PHYSICAL EXAM Alert. Oriented to time, place and person. PERRL. EOMI. CN: no focal findings. Muscle tone: normal. Muscle strength: 4/5 DTR: 1+ Plantar reflex: flexor Gait: not examined in bed. Sensory exam: no abnormal findings. No cerebellar signs elicited. Review of Relevant I have reviewed the following items kylee (where applicable) has been applied. Labs Laboratory Tests Test 01/27/19 16:56 01/27/19 20:29 01/28/19 07:19 01/28/19 10:15 Glucose (Fingerstick) 296 mg/dL (70-99) 279 mg/dL (70-99) 158 mg/dL (70-99) White Blood Count 6.2 x10^3/uL (4.0-11.0) Red Blood Count 3.35 x10^6/uL (3.50-5.40) Hemoglobin 9.4 g/dL (12.0-15.5) Hematocrit 29.3 % (36.0-47.0) Mean Corpuscular Volume 87 fL (79-100) Mean Corpuscular Hemoglobin 28 pg (25-35) Mean Corpuscular Hemoglobin Concent 32 g/dL (31-37) Red Cell Distribution Width 14.4 % (11.5-14.5) Platelet Count 123 x10^3/uL (140-400) Neutrophils (%) (Auto) 71 % (31-73) Lymphocytes (%) (Auto) 22 % (24-48) Monocytes (%) (Auto) 5 % (0-9) Eosinophils (%) (Auto) 1 % (0-3) Basophils (%) (Auto) 1 % (0-3) Neutrophils # (Auto) 4.4 x10^3uL (1.8-7.7) Lymphocytes # (Auto) 1.3 x10^3/uL (1.0-4.8) Monocytes # (Auto) 0.3 x10^3/uL (0.0-1.1) Eosinophils # (Auto) 0.1 x10^3/uL (0.0-0.7) Basophils # (Auto) 0.0 x10^3/uL (0.0-0.2) Sodium Level 143 mmol/L (136-145) Potassium Level 3.9 mmol/L (3.5-5.1) Chloride Level 103 mmol/L (98-107) Carbon Dioxide Level 35 mmol/L (21-32) Anion Gap 5 (6-14) Blood Urea Nitrogen 36 mg/dL (7-20) Creatinine 1.8 mg/dL (0.6-1.0) Estimated GFR (Cockcroft-Gault) 28.7 Glucose Level 206 mg/dL (70-99) Calcium Level 7.5 mg/dL (8.5-10.1) Phosphorus Level 3.1 mg/dL (2.6-4.7) Albumin 2.6 g/dL (3.4-5.0) Test 01/28/19 11:44 01/28/19 16:27 01/28/19 20:12 01/29/19 06:10 Glucose (Fingerstick) 212 mg/dL (70-99) 298 mg/dL (70-99) 270 mg/dL (70-99) White Blood Count 6.9 x10^3/uL (4.0-11.0) Red Blood Count 3.40 x10^6/uL (3.50-5.40) Hemoglobin 9.6 g/dL (12.0-15.5) Hematocrit 29.7 % (36.0-47.0) Mean Corpuscular Volume 88 fL (79-100) Mean Corpuscular Hemoglobin 28 pg (25-35) Mean Corpuscular Hemoglobin Concent 32 g/dL (31-37) Red Cell Distribution Width 14.7 % (11.5-14.5) Platelet Count 124 x10^3/uL (140-400) Neutrophils (%) (Auto) 68 % (31-73) Lymphocytes (%) (Auto) 25 % (24-48) Monocytes (%) (Auto) 6 % (0-9) Eosinophils (%) (Auto) 1 % (0-3) Basophils (%) (Auto) 0 % (0-3) Neutrophils # (Auto) 4.7 x10^3uL (1.8-7.7) Lymphocytes # (Auto) 1.7 x10^3/uL (1.0-4.8) Monocytes # (Auto) 0.4 x10^3/uL (0.0-1.1) Eosinophils # (Auto) 0.1 x10^3/uL (0.0-0.7) Basophils # (Auto) 0.0 x10^3/uL (0.0-0.2) Sodium Level 142 mmol/L (136-145) Potassium Level 4.2 mmol/L (3.5-5.1) Chloride Level 101 mmol/L (98-107) Carbon Dioxide Level 36 mmol/L (21-32) Anion Gap 5 (6-14) Blood Urea Nitrogen 33 mg/dL (7-20) Creatinine 1.8 mg/dL (0.6-1.0) Estimated GFR (Cockcroft-Gault) 28.7 Glucose Level 150 mg/dL (70-99) Calcium Level 7.7 mg/dL (8.5-10.1) Phosphorus Level 3.8 mg/dL (2.6-4.7) Albumin 2.8 g/dL (3.4-5.0) Test 01/29/19 07:32 01/29/19 10:54 Glucose (Fingerstick) 144 mg/dL (70-99) 220 mg/dL (70-99) Laboratory Tests Test 01/28/19 16:27 01/28/19 20:12 01/29/19 06:10 01/29/19 07:32 Glucose (Fingerstick) 298 mg/dL (70-99) 270 mg/dL (70-99) 144 mg/dL (70-99) White Blood Count 6.9 x10^3/uL (4.0-11.0) Red Blood Count 3.40 x10^6/uL (3.50-5.40) Hemoglobin 9.6 g/dL (12.0-15.5) Hematocrit 29.7 % (36.0-47.0) Mean Corpuscular Volume 88 fL (79-100) Mean Corpuscular Hemoglobin 28 pg (25-35) Mean Corpuscular Hemoglobin Concent 32 g/dL (31-37) Red Cell Distribution Width 14.7 % (11.5-14.5) Platelet Count 124 x10^3/uL (140-400) Neutrophils (%) (Auto) 68 % (31-73) Lymphocytes (%) (Auto) 25 % (24-48) Monocytes (%) (Auto) 6 % (0-9) Eosinophils (%) (Auto) 1 % (0-3) Basophils (%) (Auto) 0 % (0-3) Neutrophils # (Auto) 4.7 x10^3uL (1.8-7.7) Lymphocytes # (Auto) 1.7 x10^3/uL (1.0-4.8) Monocytes # (Auto) 0.4 x10^3/uL (0.0-1.1) Eosinophils # (Auto) 0.1 x10^3/uL (0.0-0.7) Basophils # (Auto) 0.0 x10^3/uL (0.0-0.2) Sodium Level 142 mmol/L (136-145) Potassium Level 4.2 mmol/L (3.5-5.1) Chloride Level 101 mmol/L (98-107) Carbon Dioxide Level 36 mmol/L (21-32) Anion Gap 5 (6-14) Blood Urea Nitrogen 33 mg/dL (7-20) Creatinine 1.8 mg/dL (0.6-1.0) Estimated GFR (Cockcroft-Gault) 28.7 Glucose Level 150 mg/dL (70-99) Calcium Level 7.7 mg/dL (8.5-10.1) Phosphorus Level 3.8 mg/dL (2.6-4.7) Albumin 2.8 g/dL (3.4-5.0) Test 01/29/19 10:54 Glucose (Fingerstick) 220 mg/dL (70-99) Microbiology 01/23/19 Blood Culture - Final, Complete NO GROWTH AFTER 5 DAYS Medications Current Medications Albuterol/ Ipratropium (Duoneb) 3 ml 1X ONCE NEB Last administered on at 08:04; Start 01/23/19 at 08:00; Stop 01/23/19 at 08:03; Status DC Methylprednisolone Sodium Succinate (SOLU-Medrol 125MG VIAL) 125 mg 1X ONCE IV Last administered on 01/23/19at 08:25; Start 01/23/19 at 08:00; Stop 01/23/19 at 08:03; Status DC Oxycodone/ Acetaminophen (Percocet 5/325) 1 tab 1X ONCE PO Last administered on 01/23/19at 09:01; Start 01/23/19 at 09:00; Stop 01/23/19 at 09:01; Status DC Ceftriaxone Sodium (Rocephin) 1 gm 1X ONCE IVP Last administered on 01/23/19at 09:00; Start 01/23/19 at 09:00; Stop 01/23/19 at 09:01; Status DC Magnesium Sulfate 50 ml @ 25 mls/hr 1X ONCE IV Last administered on 01/23/19at 15:06; Start 01/23/19 at 09:15; Stop 01/23/19 at 11:14; Status DC Sodium Chloride 1,000 ml @ 1,000 mls/hr 1X ONCE IV Last administered on at 15:07; Start 01/23/19 at 09:15; Stop 01/23/19 at 10:14; Status DC Vancomycin HCl 2 gm/Sodium Chloride 500 ml @ 250 mls/hr 1X ONCE IV Last administered on 01/23/19at 09:52; Start 01/23/19 at 09:30; Stop 01/23/19 at 11:29; Status DC Sodium Chloride 1,000 ml @ 150 mls/hr Q6H40M IV Last administered on at 06:30; Start 01/23/19 at 09:30; Stop 01/24/19 at 09:29; Status DC Aspirin (Children'S Aspirin) 81 mg DAILY PO Last administered on 01/29/19at 08: 37; Start 01/23/19 at 11:00 Bupropion HCl (Wellbutrin Sr) 150 mg BID PO Last administered on 01/29/19 08: 36; Start 01/23/19 at 11:00 Carvedilol (Coreg) 6.25 mg BIDWMEALS PO Last administered on 01/28/19 08:44; Start 01/23/19 at 11:00; Stop 01/28/19 at 13:32; Status DC Furosemide (Lasix) 40 mg DAILY PO Last administered on 01/29/19 08:38; Start 01/23/19 at 11:00 Nystatin (Nystop) 1 omid PRN BID PRN TP Yeast infection; Start 01/23/19 at 09:30 Potassium Chloride (Klor-Con) 40 meq DAILY PO Last administered on 01/24/19 08 :51; Start 01/23/19 at 11:00; Stop 01/25/19 at 14:17; Status DC Senna/Docusate Sodium (Senna Plus) 1 tab BID PO Last administered on 01/28/19 08:44; Start 01/23/19 at 11:00 Insulin Human Lispro (HumaLOG) 10 units TIDWMEALS SQ Last administered on 12:12; Start 01/23/19 at 12:00 Insulin Glargine (Lantus) 18 units QHS SQ Last administered on 01/28/19 21:16 ; Start 01/23/19 at 21:00 Lidocaine (Lidoderm) 1 patch QHS TD ; Start 01/23/19 at 21:00; Stop 01/23/19 at 21 :00; Status DC Montelukast Sodium (Singulair) 10 mg QHS PO Last administered on 01/28/19 21: 09; Start 01/23/19 at 21:00 Spironolactone (Aldactone) 25 mg DAILY PO Last administered on 01/24/19 08:51 ; Start 01/23/19 at 11:00; Stop 01/25/19 at 14:18; Status DC Topiramate (Topamax) 25 mg QHS PO Last administered on 01/28/19 21:09; Start 01/23/19 at 21:00 Non-Formulary Medication ([Aspirin] ) 325 mg DAILYWBKFT PO ; Start 01/24/19 at 08:00; Status UNV Pantoprazole Sodium (Protonix) 40 mg DAILYAC PO Last administered on 01/29/19at 08:37; Start 01/23/19 at 11:00 Non-Formulary Medication (Ipratropium/ Albuterol Sulfate (Combivent Respimat Inhal)) 2 inh QID IH ; Start 01/23/19 at 13:00; Status UNV Albuterol/ Ipratropium (Duoneb) 3 ml RTQID NEB Last administered on 01/29/19at 11:23; Start 01/23/19 at 12:00 Insulin Human Lispro (HumaLOG) 0-5 UNITS TIDWMEALS SQ Last administered on 01/29at 12:12; Start 01/23/19 at 12:00 Dextrose (Dextrose 50%-Water Syringe) 12.5 gm PRN Q15MIN PRN IV SEE COMMENTS; Start 01/23/19 at 10:15 Lidocaine/Sodium Bicarbonate (Buffered Lidocaine 1%) 3 ml STK-MED ONCE .ROUTE ; Start 01/23/19 at 13:44; Stop 01/23/19 at 13:45; Status DC Lidocaine/Sodium Bicarbonate (Buffered Lidocaine 1%) 3 ml 1X ONCE INJ Last administered on 01/23/19at 14:01; Start 01/23/19 at 14:00; Stop 01/23/19 at 14:01; Status DC Lidocaine (Lidoderm) 1 patch DAILY TD Last administered on 01/29/19 08:41; Start 01/23/19 at 18:00 Miscellaneous (Lidoderm Patch Removal) 1 ea QHS MC Last administered on at 21:00; Start 01/23/19 at 21:00 Oxycodone/ Acetaminophen (Percocet 5/325) 1 tab PRN Q6HRS PRN PO PAIN Last administered on 01/28/19at 10:10; Start 01/23/19 at 22:45; Stop 01/28/19 at 11:13 ; Status DC Quetiapine Fumarate (SEROquel) 25 mg QHS PO ; Start 01/24/19 at 21:00; Stop 08/04 at 21:00; Status DC Quetiapine Fumarate (SEROquel) 25 mg QHS PO Last administered on 01/28/19at 21: 08; Start 01/23/19 at 23:00 Enoxaparin Sodium (Lovenox 60mg Syringe) 60 mg Q12HR SQ Last administered on at 08:40; Start 01/24/19 at 11:30 Magnesium Sulfate 50 ml @ 25 mls/hr 1X ONCE IV Last administered on 01/24/19at 17:05; Start 01/24/19 at 16:00; Stop 01/24/19 at 17:59; Status DC Ceftriaxone Sodium (Rocephin) 1 gm Q24H IVP Last administered on 01/28/19at 16: 39; Start 01/24/19 at 16:00 Methylprednisolone Sodium Succinate (SOLU-Medrol 40MG VIAL) 80 mg Q8HRS IV Last administered on 01/25/19at 05:04; Start 01/24/19 at 17:00; Stop 01/25/19 at 11:55; Status DC Ibuprofen (Motrin) 600 mg PRN Q8HRS PRN PO INFLAMMATION Last administered on at 03:13; Start 01/24/19 at 23:15; Stop 01/28/19 at 12:06; Status DC Cyclobenzaprine HCl (Flexeril) 10 mg PRN Q12HR PRN PO MUSCLE SPASMS Last administered on 01/29/19at 08:43; Start 01/24/19 at 23:15 Buspirone HCl (Buspar) 10 mg BID PO Last administered on 01/29/19 08:37; Start 01/25/19 at 11:00 Sodium Polystyrene Sulfonate (Kayexalate) 30 gm 1X ONCE PO Last administered on 01/25/19at 11:19; Start 01/25/19 at 11:00; Stop 01/25/19 at 11:03; Status DC Methylprednisolone Sodium Succinate (SOLU-Medrol 40MG VIAL) 40 mg Q8HRS IV Last administered on 01/26/19at 06:23; Start 01/25/19 at 14:00; Stop 01/26/19 at 07:00; Status DC Sodium Polystyrene Sulfonate (Kayexalate) 30 gm 1X ONCE PO ; Start 01/25/19 at 14:30; Stop 01/25/19 at 14:31; Status DC Lactobacillus Rhamnosus (Culturelle) 1 cap BID PO Last administered on 08:37; Start 01/25/19 at 21:00 Hydralazine HCl (Apresoline Inj) 10 mg PRN Q6HRS PRN IVP ELEVATED BP, SEE COMMENTS Last administered on 01/26/19at 12:41; Start 01/25/19 at 17:15; Stop 10/04 at 17:10; Status DC Gabapentin (Neurontin) 100 mg TID@0900,1300,1800 PO Last administered on at 08:37; Start 01/25/19 at 18:00 Gabapentin (Neurontin) 200 mg QHS PO Last administered on 01/28/19 21:08; Start 01/25/19 at 21:00 Methylprednisolone Sodium Succinate (SOLU-Medrol 40MG VIAL) 40 mg Q12HR IV Last administered on 01/27/19at 09:34; Start 01/26/19 at 21:00; Stop 01/27/19 at 13:24; Status DC Hydralazine HCl (Apresoline Inj) 10 mg PRN Q4HRS PRN IVP ELEVATED BP, SEE COMMENTS Last administered on 01/29/19at 08:39; Start 01/26/19 at 17:15 Guaifenesin (Mucinex) 600 mg BID PO Last administered on 01/29/19 08:37; Start 01/27/19 at 21:00 Prednisone (Prednisone) 40 mg DAILY PO Last administered on 01/29/19 08:37; Start 01/28/19 at 09:00; Stop 01/29/19 at 10:19; Status DC Alteplase, Recombinant (Cathflo For Central Catheter Clearance) 1 mg 1X ONCE INT CAT Last administered on 01/28/19at 08:39; Start 01/28/19 at 07:45; Stop at 07:49; Status DC Oxycodone/ Acetaminophen (Percocet 5/325) 2 tab PRN Q6HRS PRN PO PAIN Last administered on 01/29/19at 12:03; Start 01/28/19 at 11:15 Metoprolol Succinate (Toprol Xl) 25 mg 1X ONCE PO ; Start 01/28/19 at 13:30; Stop 01/28/19 at 13:31; Status UNV Carvedilol (Coreg) 12.5 mg BIDWMEALS PO Last administered on 01/29/19at 08:38; Start 01/28/19 at 17:00 Clonidine HCl (Catapres Tts-2) 1 patch WEEKLY TD Last administered on at 16:40; Start 01/28/19 at 14:00 Hydralazine HCl (Apresoline) 50 mg TID PO ; Start 01/29/19 at 10:30 Prednisone (Prednisone) 30 mg DAILY PO ; Start 01/30/19 at 09:00 Active Scripts Active Lidocaine 1 Each Adh..patch 1 Patch TD QHS 30 Days Senna-Time S Tablet (Sennosides/Docusate Sodium) 1 Each Tablet 1 Tab PO BID 14 Days Levemir Flextouch (Insulin Detemir) 100 Unit/1 Ml Insuln.pen 18 Units SQ QHS Novolog Flexpen (Insulin Aspart) 100 Unit/1 Ml Insuln.pen 10 Units SQ TIDAC Topamax (Topiramate) 25 Mg Tablet 25 Mg PO HS Combivent Respimat Inhal (Ipratropium/Albuterol Sulfate) 4 Gm Aer.w.adap 2 Inh IH QID Lasix (Furosemide) 40 Mg Tablet 1 Tab PO DAILY Aldactone (Spironolactone) 25 Mg Tablet 25 Mg PO DAILY Klor-Con M20 (Potassium Chloride) 20 Meq Tablet.er 40 Meq PO DAILY Nystop (Nystatin) 1 Omid Omid 1 Omid TP BID PRN [Aspirin] 325 MG Tablet. 325 Mg PO DAILYWBKFT Reported Wellbutrin Sr (Bupropion Hcl) 150 Mg Tablet.er 1 Tab PO BID Aspirin 81 Mg Tab.chew 1 Tab PO DAILY Montelukast Sodium Tablet (Montelukast Sodium) 10 Mg Tablet 10 Mg PO HS Carvedilol (Carvedilol) 6.25 Mg Tablet 6.25 Mg PO BIDWMEALS Pantoprazole Sodium 40 Mg Tablet. 40 Mg PO DAILY Vitals/I & O Vital Sign - Last 24 Hours 01/28/19 01/28/19 01/28/19 01/28/19 12:39 15:35 16:20 16:49 Temp 97.7 97.7 Pulse 112 112 Resp 17 B/P (MAP) 207/81 (123) 207/81 Pulse Ox 98 95 94 O2 Delivery Nasal Cannula Nasal Cannula Nasal Cannula O2 Flow Rate 2.0 3.0 2.0 01/28/19 01/28/19 01/28/19 01/28/19 19:30 20:00 20:11 21:08 Temp 98.0 98.0 Pulse 71 Resp 20 B/P (MAP) 134/71 (92) Pulse Ox 93 93 O2 Delivery Nasal Cannula Nasal Cannula Nasal Cannula Nasal Cannula O2 Flow Rate 3.0 3.0 3.0 3.0 01/28/19 01/29/19 01/29/19 01/29/19 23:35 03:35 03:35 04:44 Temp 98.3 97.7 98.3 97.7 Pulse 77 74 Resp 20 20 B/P (MAP) 151/62 (91) 112/73 (86) Pulse Ox 93 93 95 93 O2 Delivery Nasal Cannula Nasal Cannula Nasal Cannula Nasal Cannula O2 Flow Rate 3.0 3.0 3.0 3.0 01/29/19 01/29/19 01/29/19 01/29/19 07:00 07:31 08:38 08:39 Temp 97.7 97.7 Pulse 72 72 72 Resp 20 B/P (MAP) 194/74 (114) 194/74 194/74 Pulse Ox 95 95 O2 Delivery Nasal Cannula Nasal Cannula O2 Flow Rate 3.0 3.0 01/29/19 01/29/19 01/29/19 11:00 11:23 12:03 Temp 97.7 97.7 Pulse 87 Resp 20 18 B/P (MAP) 175/68 (103) Pulse Ox 95 96 96 O2 Delivery Nasal Cannula Nasal Cannula Nasal Cannula O2 Flow Rate 3.0 3.0 3.0 Intake and Output 01/28/19 01/28/19 01/29/19 15:00 23:00 07:00 Intake Total 700 ml 600 ml 350 ml Balance 700 ml 600 ml 350 ml Images Lumbar spine 5 views, 01/26. HISTORY: Lumbar radiculopathy 5 views were taken of the lumbar spine including both obliques. There is mild scoliosis. There is not evidence of spondylolysis on the oblique views. There is degenerative disc disease with disc space narrowing at L3-4, L4-5 and L5-S1. There is no abnormal subluxation in the lower lumbar spine. There is slight retrolisthesis of L2 relative to L3. There is facet arthritis in the lower lumbar spine. IMPRESSION: 1. Degenerative disc disease and degenerative changes in the lumbar spine. 2. Mild scoliosis.. GILLES SARGENT MD Jan 29, 2019 12:18
--- NOTE | 2019-01-29 13:05 | PDOC ---
SUBJECTIVE ROS States my BP is high , Im having ENNIS OBJECTIVE Vital Signs Vital Signs Date Time Temp Pulse Resp B/P (MAP) Pulse Ox O2 Delivery O2 Flow Rate FiO2 01/29/19 12:03 18 96 Nasal Cannula 3.0 01/29/19 11:00 97.7 87 175/68 (103) 97.7 I & 0 Intake and Output 01/29/19 06:59 Intake Total 1650 ml Balance 1650 ml Intake Oral 1650 ml # Voids 4 # Bowel Movements 1 PHYSICAL EXAM Physical Exam General: NAD, Morbidly obese HEENT: OM moist, O2 by [facility]) NECK Thick, Supple Heart: RRR LUNGS CTA,Non labored ABD- Obese Extremities: Edema 1-2+ Neuro: Normal speech, Cranial nerves 3-12 NL No Arnett DIAGNOSIS/ASSESSMENT Assessment & Plan MUKESH - Vasomotor On Lasix, Aldactone at home Takes NSAID every day Ibuprofen dced Pt insists that she will take NSAID's and she doesn't care if she ends up on HD as she cannot tolerate her pain UA unremarkable Improved ,Stable back to her baseline Hyperkalemia- Was on K Supplementation and Aldactone K Normal CKD stage 3 - Baseline Creat from review of PMC records 1.5 to 2.1 since 2013 Patient was seen last by Dr. 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 DM2 on insulin Morbid obesity, extreme HTN- On Clonidine patch, restarted Lasix today Monitor Follow up with Nephrology at Discharge COMMENT/RELEVANT DATA Meds Current Medications Medications (Trade) Dose Ordered Sig/Sunny Start Time Stop Time Status Last Admin Dose Admin Albuterol/ Ipratropium (Duoneb) 3 ml RTQID 01/23/19 12:00 01/29/19 11:23 3 ML Alteplase, Recombinant (Cathflo For Central Catheter Clearance) 1 mg 1X ONCE 01/28/19 07:45 01/28/19 07:49 DC 01/28/19 08:39 1 MG Aspirin (Children'S Aspirin) 81 mg DAILY 01/23/19 11:00 01/29/19 08:37 81 MG Bupropion HCl (Wellbutrin Sr) 150 mg BID 01/23/19 11:00 01/29/19 08:36 150 MG Buspirone HCl (Buspar) 10 mg BID 01/25/19 11:00 01/29/19 08:37 10 MG Carvedilol (Coreg) 12.5 mg BIDWMEALS 01/28/19 17:00 01/29/19 08:38 12.5 MG Ceftriaxone Sodium (Rocephin) 1 gm Q24H 01/24/19 16:00 01/28/19 16:39 1 GM Clonidine HCl (Catapres Tts-2) 1 patch WEEKLY 01/28/19 14:00 01/28/19 16:40 1 PATCH Cyclobenzaprine HCl (Flexeril) 10 mg PRN Q12HR PRN 01/24/19 23:15 01/29/19 08:43 10 MG Dextrose (Dextrose 50%-Water Syringe) 12.5 gm PRN Q15MIN PRN 01/23/19 10:15 Enoxaparin Sodium (Lovenox 60mg Syringe) 60 mg Q12HR 01/24/19 11:30 01/29/19 08:40 60 MG Furosemide (Lasix) 40 mg DAILY 01/23/19 11:00 01/29/19 08:38 40 MG Gabapentin (Neurontin) 200 mg QHS 01/25/19 21:00 01/28/19 21:08 200 MG Guaifenesin (Mucinex) 600 mg BID 01/27/19 21:00 01/29/19 08:37 600 MG Hydralazine HCl (Apresoline Inj) 10 mg PRN Q4HRS PRN 01/26/19 17:15 01/29/19 08:39 10 MG Hydralazine HCl (Apresoline) 50 mg TID 01/29/19 10:30 Ibuprofen (Motrin) 600 mg PRN Q8HRS PRN 01/24/19 23:15 01/28/19 12:06 DC 01/27/19 03:13 600 MG Insulin Glargine (Lantus) 18 units QHS 01/23/19 21:00 01/28/19 21:16 18 UNITS Insulin Human Lispro (HumaLOG) 0-5 UNITS TIDWMEALS 01/23/19 12:00 01/29/19 12:12 3 UNITS Lactobacillus Rhamnosus (Culturelle) 1 cap BID 01/25/19 21:00 01/29/19 08:37 1 CAP Lidocaine (Lidoderm) 1 patch DAILY 01/23/19 18:00 01/29/19 08:41 1 PATCH Lidocaine/Sodium Bicarbonate (Buffered Lidocaine 1%) 3 ml 1X ONCE 01/23/19 14:00 01/23/19 14:01 DC 01/23/19 14:01 3 ML Magnesium Sulfate 50 ml @ 25 mls/hr 1X ONCE 01/24/19 16:00 01/24/19 17:59 DC 01/24/19 17:05 25 MLS/HR Methylprednisolone Sodium Succinate (SOLU-Medrol 40MG VIAL) 40 mg Q12HR 01/26/19 21:00 01/27/19 13:24 DC 01/27/19 09:34 40 MG Methylprednisolone Sodium Succinate (SOLU-Medrol 125MG VIAL) 125 mg 1X ONCE 01/23/19 08:00 01/23/19 08:03 DC 01/23/19 08:25 125 MG Metoprolol Succinate (Toprol Xl) 25 mg 1X ONCE 01/28/19 13:30 01/28/19 13:31 UNV Miscellaneous (Lidoderm Patch Removal) 1 ea QHS 01/23/19 21:00 01/28/19 21:00 1 EA Montelukast Sodium (Singulair) 10 mg QHS 01/23/19 21:00 01/28/19 21:09 10 MG Non-Formulary Medication (Ipratropium/ Albuterol Sulfate (Combivent Respimat Inhal)) 2 inh QID 01/23/19 13:00 UNV Non-Formulary Medication ([Aspirin] ) 325 mg DAILYWBKFT 01/24/19 08:00 UNV Nystatin (Nystop) 1 evelia PRN BID PRN 01/23/19 09:30 Oxycodone/ Acetaminophen (Percocet 5/325) 2 tab PRN Q6HRS PRN 01/28/19 11:15 01/29/19 12:03 2 TAB Pantoprazole Sodium (Protonix) 40 mg DAILYAC 01/23/19 11:00 01/29/19 08:37 40 MG Potassium Chloride (Klor-Con) 40 meq DAILY 01/23/19 11:00 01/25/19 14:17 DC 01/24/19 08:51 40 MEQ Prednisone (Prednisone) 30 mg DAILY 01/30/19 09:00 Quetiapine Fumarate (SEROquel) 25 mg QHS 01/23/19 23:00 01/28/19 21:08 25 MG Senna/Docusate Sodium (Senna Plus) 1 tab BID 01/23/19 11:00 01/28/19 08:44 1 TAB Sodium Polystyrene Sulfonate (Kayexalate) 30 gm 1X ONCE 01/25/19 14:30 01/25/19 14:31 DC Sodium Chloride 1,000 ml @ 150 mls/hr Q6H40M 01/23/19 09:30 01/24/19 09:29 DC 01/24/19 06:30 150 MLS/HR Spironolactone (Aldactone) 25 mg DAILY 01/23/19 11:00 01/25/19 14:18 DC 01/24/19 08:51 25 MG Topiramate (Topamax) 25 mg QHS 01/23/19 21:00 01/28/19 21:09 25 MG Vancomycin HCl 2 gm/Sodium Chloride 500 ml @ 250 mls/hr 1X ONCE 01/23/19 09:30 01/23/19 11:29 DC 01/23/19 09:52 250 MLS/HR Lab Laboratory Tests Test 01/28/19 16:27 01/28/19 20:12 01/29/19 06:10 01/29/19 07:32 Glucose (Fingerstick) 298 mg/dL (70-99) 270 mg/dL (70-99) 144 mg/dL (70-99) White Blood Count 6.9 x10^3/uL (4.0-11.0) Red Blood Count 3.40 x10^6/uL (3.50-5.40) Hemoglobin 9.6 g/dL (12.0-15.5) Hematocrit 29.7 % (36.0-47.0) Mean Corpuscular Volume 88 fL (79-100) Mean Corpuscular Hemoglobin 28 pg (25-35) Mean Corpuscular Hemoglobin Concent 32 g/dL (31-37) Red Cell Distribution Width 14.7 % (11.5-14.5) Platelet Count 124 x10^3/uL (140-400) Neutrophils (%) (Auto) 68 % (31-73) Lymphocytes (%) (Auto) 25 % (24-48) Monocytes (%) (Auto) 6 % (0-9) Eosinophils (%) (Auto) 1 % (0-3) Basophils (%) (Auto) 0 % (0-3) Neutrophils # (Auto) 4.7 x10^3uL (1.8-7.7) Lymphocytes # (Auto) 1.7 x10^3/uL (1.0-4.8) Monocytes # (Auto) 0.4 x10^3/uL (0.0-1.1) Eosinophils # (Auto) 0.1 x10^3/uL (0.0-0.7) Basophils # (Auto) 0.0 x10^3/uL (0.0-0.2) Sodium Level 142 mmol/L (136-145) Potassium Level 4.2 mmol/L (3.5-5.1) Chloride Level 101 mmol/L (98-107) Carbon Dioxide Level 36 mmol/L (21-32) Anion Gap 5 (6-14) Blood Urea Nitrogen 33 mg/dL (7-20) Creatinine 1.8 mg/dL (0.6-1.0) Estimated GFR (Cockcroft-Gault) 28.7 Glucose Level 150 mg/dL (70-99) Calcium Level 7.7 mg/dL (8.5-10.1) Phosphorus Level 3.8 mg/dL (2.6-4.7) Albumin 2.8 g/dL (3.4-5.0) Test 01/29/19 10:54 Glucose (Fingerstick) 220 mg/dL (70-99) Results All relevant outside records, renal labs, imaging studies, telemetry/EKG's were reviewed. GRAY PÉREZ MD Jan 29, 2019 13:05
--- NOTE | 2019-01-29 13:26 | PDOC ---
PULMONARY PROGRESS NOTES Subjective sob cough nasal congestion better, no pain Vitals Vital Signs Date Time Temp Pulse Resp B/P (MAP) Pulse Ox O2 Delivery O2 Flow Rate FiO2 01/29/19 13:10 19 96 Nasal Cannula 3.0 01/29/19 13:04 87 175/68 01/29/19 11:00 97.7 97.7 ROS: No Nausea General: Alert, No acute distress Lungs: Clear Cardiovascular: S1, S2 Abdomen: Soft, Non-tender Neuro Exam: Alert Extremities: Other (=edema) Skin: Warm Labs Laboratory Tests Test 01/27/19 16:56 01/27/19 20:29 01/28/19 07:19 01/28/19 10:15 Glucose (Fingerstick) 296 mg/dL (70-99) 279 mg/dL (70-99) 158 mg/dL (70-99) White Blood Count 6.2 x10^3/uL (4.0-11.0) Red Blood Count 3.35 x10^6/uL (3.50-5.40) Hemoglobin 9.4 g/dL (12.0-15.5) Hematocrit 29.3 % (36.0-47.0) Mean Corpuscular Volume 87 fL (79-100) Mean Corpuscular Hemoglobin 28 pg (25-35) Mean Corpuscular Hemoglobin Concent 32 g/dL (31-37) Red Cell Distribution Width 14.4 % (11.5-14.5) Platelet Count 123 x10^3/uL (140-400) Neutrophils (%) (Auto) 71 % (31-73) Lymphocytes (%) (Auto) 22 % (24-48) Monocytes (%) (Auto) 5 % (0-9) Eosinophils (%) (Auto) 1 % (0-3) Basophils (%) (Auto) 1 % (0-3) Neutrophils # (Auto) 4.4 x10^3uL (1.8-7.7) Lymphocytes # (Auto) 1.3 x10^3/uL (1.0-4.8) Monocytes # (Auto) 0.3 x10^3/uL (0.0-1.1) Eosinophils # (Auto) 0.1 x10^3/uL (0.0-0.7) Basophils # (Auto) 0.0 x10^3/uL (0.0-0.2) Sodium Level 143 mmol/L (136-145) Potassium Level 3.9 mmol/L (3.5-5.1) Chloride Level 103 mmol/L (98-107) Carbon Dioxide Level 35 mmol/L (21-32) Anion Gap 5 (6-14) Blood Urea Nitrogen 36 mg/dL (7-20) Creatinine 1.8 mg/dL (0.6-1.0) Estimated GFR (Cockcroft-Gault) 28.7 Glucose Level 206 mg/dL (70-99) Calcium Level 7.5 mg/dL (8.5-10.1) Phosphorus Level 3.1 mg/dL (2.6-4.7) Albumin 2.6 g/dL (3.4-5.0) Test 01/28/19 11:44 01/28/19 16:27 01/28/19 20:12 01/29/19 06:10 Glucose (Fingerstick) 212 mg/dL (70-99) 298 mg/dL (70-99) 270 mg/dL (70-99) White Blood Count 6.9 x10^3/uL (4.0-11.0) Red Blood Count 3.40 x10^6/uL (3.50-5.40) Hemoglobin 9.6 g/dL (12.0-15.5) Hematocrit 29.7 % (36.0-47.0) Mean Corpuscular Volume 88 fL (79-100) Mean Corpuscular Hemoglobin 28 pg (25-35) Mean Corpuscular Hemoglobin Concent 32 g/dL (31-37) Red Cell Distribution Width 14.7 % (11.5-14.5) Platelet Count 124 x10^3/uL (140-400) Neutrophils (%) (Auto) 68 % (31-73) Lymphocytes (%) (Auto) 25 % (24-48) Monocytes (%) (Auto) 6 % (0-9) Eosinophils (%) (Auto) 1 % (0-3) Basophils (%) (Auto) 0 % (0-3) Neutrophils # (Auto) 4.7 x10^3uL (1.8-7.7) Lymphocytes # (Auto) 1.7 x10^3/uL (1.0-4.8) Monocytes # (Auto) 0.4 x10^3/uL (0.0-1.1) Eosinophils # (Auto) 0.1 x10^3/uL (0.0-0.7) Basophils # (Auto) 0.0 x10^3/uL (0.0-0.2) Sodium Level 142 mmol/L (136-145) Potassium Level 4.2 mmol/L (3.5-5.1) Chloride Level 101 mmol/L (98-107) Carbon Dioxide Level 36 mmol/L (21-32) Anion Gap 5 (6-14) Blood Urea Nitrogen 33 mg/dL (7-20) Creatinine 1.8 mg/dL (0.6-1.0) Estimated GFR (Cockcroft-Gault) 28.7 Glucose Level 150 mg/dL (70-99) Calcium Level 7.7 mg/dL (8.5-10.1) Phosphorus Level 3.8 mg/dL (2.6-4.7) Albumin 2.8 g/dL (3.4-5.0) Test 01/29/19 07:32 01/29/19 10:54 Glucose (Fingerstick) 144 mg/dL (70-99) 220 mg/dL (70-99) Laboratory Tests Test 01/28/19 16:27 01/28/19 20:12 01/29/19 06:10 01/29/19 07:32 Glucose (Fingerstick) 298 mg/dL (70-99) 270 mg/dL (70-99) 144 mg/dL (70-99) White Blood Count 6.9 x10^3/uL (4.0-11.0) Red Blood Count 3.40 x10^6/uL (3.50-5.40) Hemoglobin 9.6 g/dL (12.0-15.5) Hematocrit 29.7 % (36.0-47.0) Mean Corpuscular Volume 88 fL (79-100) Mean Corpuscular Hemoglobin 28 pg (25-35) Mean Corpuscular Hemoglobin Concent 32 g/dL (31-37) Red Cell Distribution Width 14.7 % (11.5-14.5) Platelet Count 124 x10^3/uL (140-400) Neutrophils (%) (Auto) 68 % (31-73) Lymphocytes (%) (Auto) 25 % (24-48) Monocytes (%) (Auto) 6 % (0-9) Eosinophils (%) (Auto) 1 % (0-3) Basophils (%) (Auto) 0 % (0-3) Neutrophils # (Auto) 4.7 x10^3uL (1.8-7.7) Lymphocytes # (Auto) 1.7 x10^3/uL (1.0-4.8) Monocytes # (Auto) 0.4 x10^3/uL (0.0-1.1) Eosinophils # (Auto) 0.1 x10^3/uL (0.0-0.7) Basophils # (Auto) 0.0 x10^3/uL (0.0-0.2) Sodium Level 142 mmol/L (136-145) Potassium Level 4.2 mmol/L (3.5-5.1) Chloride Level 101 mmol/L (98-107) Carbon Dioxide Level 36 mmol/L (21-32) Anion Gap 5 (6-14) Blood Urea Nitrogen 33 mg/dL (7-20) Creatinine 1.8 mg/dL (0.6-1.0) Estimated GFR (Cockcroft-Gault) 28.7 Glucose Level 150 mg/dL (70-99) Calcium Level 7.7 mg/dL (8.5-10.1) Phosphorus Level 3.8 mg/dL (2.6-4.7) Albumin 2.8 g/dL (3.4-5.0) Test 01/29/19 10:54 Glucose (Fingerstick) 220 mg/dL (70-99) Medications Active Scripts Medications Dose Route/Sig Max Daily Dose Days Date Category Lidocaine 1 Each Adh..patch 1 Patch TD QHS 30 08/23/18 Rx Senna-Time S Tablet (Sennosides/Docusate Sodium) 1 Each Tablet 1 Tab PO BID 14 08/23/18 Rx Levemir Flextouch (Insulin Detemir) 100 Unit/1 Ml Insuln.pen 18 Units SQ QHS 10/17/15 Rx Novolog Flexpen (Insulin Aspart) 100 Unit/1 Ml Insuln.pen 10 Units SQ TIDAC 10/17/15 Rx Topamax (Topiramate) 25 Mg Tablet 25 Mg PO HS 03/18/15 Rx Wellbutrin Sr (Bupropion Hcl) 150 Mg Tablet.er 1 Tab PO BID 03/11/15 Reported Aspirin 81 Mg Tab.chew 1 Tab PO DAILY 03/11/15 Reported Montelukast Sodium Tablet (Montelukast Sodium) 10 Mg Tablet 10 Mg PO HS 03/11/15 Reported Combivent Respimat Inhal (Ipratropium/Albuterol Sulfate) 4 Gm Aer.w.adap 2 Inh IH QID 11/28/14 Rx Lasix (Furosemide) 40 Mg Tablet 1 Tab PO DAILY 10/25/14 Rx Aldactone (Spironolactone) 25 Mg Tablet 25 Mg PO DAILY 10/25/14 Rx Klor-Con M20 (Potassium Chloride) 20 Meq Tablet.er 40 Meq PO DAILY 10/25/14 Rx Nystop (Nystatin) 1 Omid Omid 1 Omid TP BID PRN 10/25/14 Rx [Aspirin] 325 MG Tablet. 325 Mg PO DAILYWBKFT 10/25/14 Rx Carvedilol (Carvedilol) 6.25 Mg Tablet 6.25 Mg PO BIDWMEALS 10/22/14 Reported Pantoprazole Sodium 40 Mg Tablet.dr 40 Mg PO DAILY 10/22/14 Reported Comments echo reviewed The left ventricular systolic function is normal. The Ejection Fraction is 55-60%. There is normal LV segmental wall motion. Mild mitral regurgitation. Mild tricuspid regurgitation. The PA pressure was estimated at 45 mmHg. There is no evidence of significant pericardial effusion. Impression . IMPRESSION: 1. Acute on chronic respiratory failure, multifactorial in etiology including acute exacerbation of chronic obstructive pulmonary disease, acute diastolic congestive heart failure, ?acute bronchitis 2. ?Sepsis. 3. Acute exacerbation of chronic obstructive pulmonary disease. 4. Acute diastolic congestive heart failure. 5. Obesity. 6. Excessive daytime sleepiness and snoring, probable obstructive sleep apnea-hypopnea syndrome. 7. Acute kidney injury, chronic kidney disease. 8. Diabetes mellitus. 9. Gastroesophageal reflux disease. 10. Ex-smoker. Plan . 1. Titrate FiO2 to keep O2 saturation 90-91%. 2. Continue bronchodilator. 3. prednisone 40 mg daily w taper by 10 mg q 3d 4. Continue Singulair. 5. Continue antibiotic. 6. Lovenox for DVT prophylaxis. 7. fu Lower extremity venous Doppler. 8. Protonix for stress ulcer prophylaxis. 9. Facilities Specialist consulted. 10. Echocardiogram reviewed. 12. lose wt, exercise discussed w pt, rn MILAGROS LIMA MD Jan 29, 2019 13:26
[2019-01-29 14:59] VITALS: BP 151/50
[2019-01-29] MEDS: cefTRIAXone IV Push 1 GM VIAL. IVP SCH (16:44)
[2019-01-29 18:51] VITALS: BP 144/54
[2019-01-29] MEDS: MONTELUKAST SODIUM 10 MG TABLET. PO SCH (20:22)
[2019-01-29] MEDS: TOPIRAMATE 25 MG TABLET. PO SCH (20:25)
[2019-01-29] MEDS: QUEtiapine 25 MG TABLET. PO SCH (20:25)
[2019-01-29] MEDS: PATCH REMOVAL. MC SCH (20:26)
[2019-01-29] MEDS: INSULIN GLARGINE 300 UNITS/3 ML INSULN.PEN. SQ SCH (20:35)
[2019-01-29 23:00] VITALS: BP 152/54
[2019-01-30] MEDS: oxyCODONE/APAP 5/325 1 TAB TABLET PO PRN ×3 (02:30→15:18)
[2019-01-30 03:00] VITALS: BP 150/64
[2019-01-30 05:57] LABS: BASO % 1 % (0-3); EOS # 0.1 x10^3/uL (0.0-0.7); EOS % 2 % (0-3); HEMATOCRIT 30.3 % (36.0-47.0); HEMOGLOBIN 9.7 g/dL (12.0-15.5); LYMPH # 1.7 x10^3/uL (1.0-4.8); LYMPH % 22 % (24-48); MEAN CORPUSCULAR HEMOGLOBIN 28 pg (25-35); MEAN CORPUSCULAR HGB CONC 32 g/dL (31-37); MEAN CORPUSCULAR VOLUME 87 fL (79-100); MONO # 0.5 x10^3/uL (0.0-1.1); MONO % 6 % (0-9); NEUT # 5.5 x10^3uL (1.8-7.7); NEUT % 70 % (31-73); PLATELET COUNT 122 x10^3/uL (140-400); RED BLOOD COUNT 3.47 x10^6/uL (3.50-5.40); RED CELL DISTRIBUTION WIDTH 14.8 % (11.5-14.5); WHITE BLOOD COUNT 7.9 x10^3/uL (4.0-11.0)
[2019-01-30 06:09] LABS: ALBUMIN 2.8 g/dL (3.4-5.0); ALBUMIN/GLOBULIN RATIO 0.8 (1.0-1.7); CALCIUM 8.3 mg/dL (8.5-10.1); CREATININE 1.8 mg/dL (0.6-1.0); GFR 28.7; PHOSPHORUS 4.3 mg/dL (2.6-4.7); POTASSIUM 4.1 mmol/L (3.5-5.1); TOTAL BILIRUBIN 0.5 mg/dL (0.2-1.0); TOTAL PROTEIN 6.1 g/dL (6.4-8.2)
[2019-01-30 07:00] VITALS: BP 149/49
[2019-01-30] MEDS: IPRATRPIUM/ALBUTEROL 0.5/2.5MG 3 ML NEBU. NEB SCH ×3 (07:31→15:34)
[2019-01-30] MEDS: INSULIN LISPRO 300 UNITS/3 ML INSULN.PEN. SQ SCH ×4 (08:00→12:44)
[2019-01-30] MEDS: buPROPion SR 150 MG TABLET.SA PO SCH (09:00)
[2019-01-30] MEDS ORDERED: predniSONE 20 MG TABLET PO SCH (09:00)
[2019-01-30] MEDS: SENNOSIDES/DOCUSATE 8.6/50MG TABLET. PO SCH (09:00)
[2019-01-30] MEDS: busPIRone 10 MG TABLET. PO SCH (09:01)
[2019-01-30] MEDS: FUROSEMIDE 40 MG TABLET. PO SCH (09:01)
[2019-01-30] MEDS: GABAPENTIN 100 MG CAPSULE. PO SCH ×2 (09:01→15:18)
[2019-01-30] MEDS: LACTOBACILLUS RHAMNOSUS GG 1 CAPSULE. PO SCH (09:01)
[2019-01-30] MEDS: PANTOPRAZOLE 40 MG TABLET.DR. PO SCH (09:02)
[2019-01-30] MEDS: CARVEDILOL 12.5 MG TABLET. PO SCH (09:02)
[2019-01-30] MEDS: ASPIRIN CHEWABLE 81 MG TABLET. PO SCH (09:02)
[2019-01-30] MEDS: LIDOCAINE (700MG/PATCH) PATCH. TD SCH (09:03)
--- NOTE | 2019-01-30 09:04 | PDOC ---
PROGRESS NOTES Subjective Subjective She admits continued low back pain and percocet is not helping. Objective Objective Vital Signs Date Time Temp Pulse Resp B/P (MAP) Pulse Ox O2 Delivery O2 Flow Rate FiO2 01/30/19 07:31 100 Nasal Cannula 3.0 01/30/19 07:00 98.2 70 18 149/49 (82) 98.2 Intake and Output 01/30/19 06:59 Intake Total 1720 ml Output Total 1200 ml Balance 520 ml Intake Oral 1720 ml Output Urine Total 1200 ml # Voids 3 # Bowel Movements 1 Physical Exam Physical Exam She is sitting at edge of bed and she got up and walked with roller walker for 40' yesterday. Assessment Assessment Problems Medical Problems: (1) Acute and chronic respiratory failure ([id number]) Status: Acute (2) Anxiety Status: Acute (3) Hyperglycemia Status: Acute (4) Renal failure Status: Acute Plan Plan of Detention when medically stable with home health follow up. Comment Review of Relevant I have reviewed the following items kylee (where applicable) has been applied. Labs Laboratory Tests Test 01/28/19 10:15 01/28/19 11:44 01/28/19 16:27 01/28/19 20:12 White Blood Count 6.2 x10^3/uL (4.0-11.0) Red Blood Count 3.35 x10^6/uL (3.50-5.40) Hemoglobin 9.4 g/dL (12.0-15.5) Hematocrit 29.3 % (36.0-47.0) Mean Corpuscular Volume 87 fL (79-100) Mean Corpuscular Hemoglobin 28 pg (25-35) Mean Corpuscular Hemoglobin Concent 32 g/dL (31-37) Red Cell Distribution Width 14.4 % (11.5-14.5) Platelet Count 123 x10^3/uL (140-400) Neutrophils (%) (Auto) 71 % (31-73) Lymphocytes (%) (Auto) 22 % (24-48) Monocytes (%) (Auto) 5 % (0-9) Eosinophils (%) (Auto) 1 % (0-3) Basophils (%) (Auto) 1 % (0-3) Neutrophils # (Auto) 4.4 x10^3uL (1.8-7.7) Lymphocytes # (Auto) 1.3 x10^3/uL (1.0-4.8) Monocytes # (Auto) 0.3 x10^3/uL (0.0-1.1) Eosinophils # (Auto) 0.1 x10^3/uL (0.0-0.7) Basophils # (Auto) 0.0 x10^3/uL (0.0-0.2) Sodium Level 143 mmol/L (136-145) Potassium Level 3.9 mmol/L (3.5-5.1) Chloride Level 103 mmol/L (98-107) Carbon Dioxide Level 35 mmol/L (21-32) Anion Gap 5 (6-14) Blood Urea Nitrogen 36 mg/dL (7-20) Creatinine 1.8 mg/dL (0.6-1.0) Estimated GFR (Cockcroft-Gault) 28.7 Glucose Level 206 mg/dL (70-99) Calcium Level 7.5 mg/dL (8.5-10.1) Phosphorus Level 3.1 mg/dL (2.6-4.7) Albumin 2.6 g/dL (3.4-5.0) Glucose (Fingerstick) 212 mg/dL (70-99) 298 mg/dL (70-99) 270 mg/dL (70-99) Test 01/29/19 06:10 01/29/19 07:32 01/29/19 10:54 01/29/19 16:02 White Blood Count 6.9 x10^3/uL (4.0-11.0) Red Blood Count 3.40 x10^6/uL (3.50-5.40) Hemoglobin 9.6 g/dL (12.0-15.5) Hematocrit 29.7 % (36.0-47.0) Mean Corpuscular Volume 88 fL (79-100) Mean Corpuscular Hemoglobin 28 pg (25-35) Mean Corpuscular Hemoglobin Concent 32 g/dL (31-37) Red Cell Distribution Width 14.7 % (11.5-14.5) Platelet Count 124 x10^3/uL (140-400) Neutrophils (%) (Auto) 68 % (31-73) Lymphocytes (%) (Auto) 25 % (24-48) Monocytes (%) (Auto) 6 % (0-9) Eosinophils (%) (Auto) 1 % (0-3) Basophils (%) (Auto) 0 % (0-3) Neutrophils # (Auto) 4.7 x10^3uL (1.8-7.7) Lymphocytes # (Auto) 1.7 x10^3/uL (1.0-4.8) Monocytes # (Auto) 0.4 x10^3/uL (0.0-1.1) Eosinophils # (Auto) 0.1 x10^3/uL (0.0-0.7) Basophils # (Auto) 0.0 x10^3/uL (0.0-0.2) Sodium Level 142 mmol/L (136-145) Potassium Level 4.2 mmol/L (3.5-5.1) Chloride Level 101 mmol/L (98-107) Carbon Dioxide Level 36 mmol/L (21-32) Anion Gap 5 (6-14) Blood Urea Nitrogen 33 mg/dL (7-20) Creatinine 1.8 mg/dL (0.6-1.0) Estimated GFR (Cockcroft-Gault) 28.7 Glucose Level 150 mg/dL (70-99) Calcium Level 7.7 mg/dL (8.5-10.1) Phosphorus Level 3.8 mg/dL (2.6-4.7) Albumin 2.8 g/dL (3.4-5.0) Glucose (Fingerstick) 144 mg/dL (70-99) 220 mg/dL (70-99) 188 mg/dL (70-99) Test 01/29/19 20:28 01/30/19 05:30 01/30/19 06:54 Glucose (Fingerstick) 307 mg/dL (70-99) 128 mg/dL (70-99) White Blood Count 7.9 x10^3/uL (4.0-11.0) Red Blood Count 3.47 x10^6/uL (3.50-5.40) Hemoglobin 9.7 g/dL (12.0-15.5) Hematocrit 30.3 % (36.0-47.0) Mean Corpuscular Volume 87 fL (79-100) Mean Corpuscular Hemoglobin 28 pg (25-35) Mean Corpuscular Hemoglobin Concent 32 g/dL (31-37) Red Cell Distribution Width 14.8 % (11.5-14.5) Platelet Count 122 x10^3/uL (140-400) Neutrophils (%) (Auto) 70 % (31-73) Lymphocytes (%) (Auto) 22 % (24-48) Monocytes (%) (Auto) 6 % (0-9) Eosinophils (%) (Auto) 2 % (0-3) Basophils (%) (Auto) 1 % (0-3) Neutrophils # (Auto) 5.5 x10^3uL (1.8-7.7) Lymphocytes # (Auto) 1.7 x10^3/uL (1.0-4.8) Monocytes # (Auto) 0.5 x10^3/uL (0.0-1.1) Eosinophils # (Auto) 0.1 x10^3/uL (0.0-0.7) Basophils # (Auto) 0.0 x10^3/uL (0.0-0.2) Sodium Level 140 mmol/L (136-145) Potassium Level 4.1 mmol/L (3.5-5.1) Chloride Level 100 mmol/L (98-107) Carbon Dioxide Level 37 mmol/L (21-32) Anion Gap 3 (6-14) Blood Urea Nitrogen 34 mg/dL (7-20) Creatinine 1.8 mg/dL (0.6-1.0) Estimated GFR (Cockcroft-Gault) 28.7 BUN/Creatinine Ratio 19 (6-20) Glucose Level 162 mg/dL (70-99) Calcium Level 8.3 mg/dL (8.5-10.1) Phosphorus Level 4.3 mg/dL (2.6-4.7) Total Bilirubin 0.5 mg/dL (0.2-1.0) Aspartate Amino Transf (AST/SGOT) 12 U/L (15-37) Alanine Aminotransferase (ALT/SGPT) 20 U/L (14-59) Alkaline Phosphatase 71 U/L (46-116) Total Protein 6.1 g/dL (6.4-8.2) Albumin 2.8 g/dL (3.4-5.0) Albumin/Globulin Ratio 0.8 (1.0-1.7) Laboratory Tests Test 01/29/19 10:54 01/29/19 16:02 01/29/19 20:28 01/30/19 05:30 Glucose (Fingerstick) 220 mg/dL (70-99) 188 mg/dL (70-99) 307 mg/dL (70-99) White Blood Count 7.9 x10^3/uL (4.0-11.0) Red Blood Count 3.47 x10^6/uL (3.50-5.40) Hemoglobin 9.7 g/dL (12.0-15.5) Hematocrit 30.3 % (36.0-47.0) Mean Corpuscular Volume 87 fL (79-100) Mean Corpuscular Hemoglobin 28 pg (25-35) Mean Corpuscular Hemoglobin Concent 32 g/dL (31-37) Red Cell Distribution Width 14.8 % (11.5-14.5) Platelet Count 122 x10^3/uL (140-400) Neutrophils (%) (Auto) 70 % (31-73) Lymphocytes (%) (Auto) 22 % (24-48) Monocytes (%) (Auto) 6 % (0-9) Eosinophils (%) (Auto) 2 % (0-3) Basophils (%) (Auto) 1 % (0-3) Neutrophils # (Auto) 5.5 x10^3uL (1.8-7.7) Lymphocytes # (Auto) 1.7 x10^3/uL (1.0-4.8) Monocytes # (Auto) 0.5 x10^3/uL (0.0-1.1) Eosinophils # (Auto) 0.1 x10^3/uL (0.0-0.7) Basophils # (Auto) 0.0 x10^3/uL (0.0-0.2) Sodium Level 140 mmol/L (136-145) Potassium Level 4.1 mmol/L (3.5-5.1) Chloride Level 100 mmol/L (98-107) Carbon Dioxide Level 37 mmol/L (21-32) Anion Gap 3 (6-14) Blood Urea Nitrogen 34 mg/dL (7-20) Creatinine 1.8 mg/dL (0.6-1.0) Estimated GFR (Cockcroft-Gault) 28.7 BUN/Creatinine Ratio 19 (6-20) Glucose Level 162 mg/dL (70-99) Calcium Level 8.3 mg/dL (8.5-10.1) Phosphorus Level 4.3 mg/dL (2.6-4.7) Total Bilirubin 0.5 mg/dL (0.2-1.0) Aspartate Amino Transf (AST/SGOT) 12 U/L (15-37) Alanine Aminotransferase (ALT/SGPT) 20 U/L (14-59) Alkaline Phosphatase 71 U/L (46-116) Total Protein 6.1 g/dL (6.4-8.2) Albumin 2.8 g/dL (3.4-5.0) Albumin/Globulin Ratio 0.8 (1.0-1.7) Test 01/30/19 06:54 Glucose (Fingerstick) 128 mg/dL (70-99) Microbiology 01/23/19 Blood Culture - Final, Complete NO GROWTH AFTER 5 DAYS Medications Current Medications Albuterol/ Ipratropium (Duoneb) 3 ml 1X ONCE NEB Last administered on at 08:04; Start 01/23/19 at 08:00; Stop 01/23/19 at 08:03; Status DC Methylprednisolone Sodium Succinate (SOLU-Medrol 125MG VIAL) 125 mg 1X ONCE IV Last administered on 01/23/19at 08:25; Start 01/23/19 at 08:00; Stop 01/23/19 at 08:03; Status DC Oxycodone/ Acetaminophen (Percocet 5/325) 1 tab 1X ONCE PO Last administered on 01/23/19at 09:01; Start 01/23/19 at 09:00; Stop 01/23/19 at 09:01; Status DC Ceftriaxone Sodium (Rocephin) 1 gm 1X ONCE IVP Last administered on 01/23/19at 09:00; Start 01/23/19 at 09:00; Stop 01/23/19 at 09:01; Status DC Magnesium Sulfate 50 ml @ 25 mls/hr 1X ONCE IV Last administered on 01/23/19at 15:06; Start 01/23/19 at 09:15; Stop 01/23/19 at 11:14; Status DC Sodium Chloride 1,000 ml @ 1,000 mls/hr 1X ONCE IV Last administered on at 15:07; Start 01/23/19 at 09:15; Stop 01/23/19 at 10:14; Status DC Vancomycin HCl 2 gm/Sodium Chloride 500 ml @ 250 mls/hr 1X ONCE IV Last administered on 01/23/19at 09:52; Start 01/23/19 at 09:30; Stop 01/23/19 at 11:29; Status DC Sodium Chloride 1,000 ml @ 150 mls/hr Q6H40M IV Last administered on at 06:30; Start 01/23/19 at 09:30; Stop 01/24/19 at 09:29; Status DC Aspirin (Children'S Aspirin) 81 mg DAILY PO Last administered on 01/29/19 08: 37; Start 01/23/19 at 11:00 Bupropion HCl (Wellbutrin Sr) 150 mg BID PO Last administered on 01/29/19 20: 25; Start 01/23/19 at 11:00 Carvedilol (Coreg) 6.25 mg BIDWMEALS PO Last administered on 01/28/19at 08:44; Start 01/23/19 at 11:00; Stop 01/28/19 at 13:32; Status DC Furosemide (Lasix) 40 mg DAILY PO Last administered on 01/29/19 08:38; Start 01/23/19 at 11:00 Nystatin (Nystop) 1 omid PRN BID PRN TP Yeast infection; Start 01/23/19 at 09:30 Potassium Chloride (Klor-Con) 40 meq DAILY PO Last administered on 01/24/19 08 :51; Start 01/23/19 at 11:00; Stop 01/25/19 at 14:17; Status DC Senna/Docusate Sodium (Senna Plus) 1 tab BID PO Last administered on 01/29/19 20:25; Start 01/23/19 at 11:00 Insulin Human Lispro (HumaLOG) 10 units TIDWMEALS SQ Last administered on 17:46; Start 01/23/19 at 12:00 Insulin Glargine (Lantus) 18 units QHS SQ Last administered on 01/29/19 20:35 ; Start 01/23/19 at 21:00 Lidocaine (Lidoderm) 1 patch QHS TD ; Start 01/23/19 at 21:00; Stop 01/23/19 at 21 :00; Status DC Montelukast Sodium (Singulair) 10 mg QHS PO Last administered on 01/29/19 20: 22; Start 01/23/19 at 21:00 Spironolactone (Aldactone) 25 mg DAILY PO Last administered on 01/24/19 08:51 ; Start 01/23/19 at 11:00; Stop 01/25/19 at 14:18; Status DC Topiramate (Topamax) 25 mg QHS PO Last administered on 01/29/19 20:25; Start 01/23/19 at 21:00 Non-Formulary Medication ([Aspirin] ) 325 mg DAILYWBKFT PO ; Start 01/24/19 at 08:00; Status UNV Pantoprazole Sodium (Protonix) 40 mg DAILYAC PO Last administered on 01/29/19 08:37; Start 01/23/19 at 11:00 Non-Formulary Medication (Ipratropium/ Albuterol Sulfate (Combivent Respimat Inhal)) 2 inh QID IH ; Start 01/23/19 at 13:00; Status UNV Albuterol/ Ipratropium (Duoneb) 3 ml RTQID NEB Last administered on 01/30/19 07:31; Start 01/23/19 at 12:00 Insulin Human Lispro (HumaLOG) 0-5 UNITS TIDWMEALS SQ Last administered on 01/29 17:47; Start 01/23/19 at 12:00 Dextrose (Dextrose 50%-Water Syringe) 12.5 gm PRN Q15MIN PRN IV SEE COMMENTS; Start 01/23/19 at 10:15 Lidocaine/Sodium Bicarbonate (Buffered Lidocaine 1%) 3 ml STK-MED ONCE .ROUTE ; Start 01/23/19 at 13:44; Stop 01/23/19 at 13:45; Status DC Lidocaine/Sodium Bicarbonate (Buffered Lidocaine 1%) 3 ml 1X ONCE INJ Last administered on 01/23/19at 14:01; Start 01/23/19 at 14:00; Stop 01/23/19 at 14:01; Status DC Lidocaine (Lidoderm) 1 patch DAILY TD Last administered on 01/29/19 08:41; Start 01/23/19 at 18:00 Miscellaneous (Lidoderm Patch Removal) 1 ea QHS MC Last administered on 21:00; Start 01/23/19 at 21:00 Oxycodone/ Acetaminophen (Percocet 5/325) 1 tab PRN Q6HRS PRN PO PAIN Last administered on 01/28/19 10:10; Start 01/23/19 at 22:45; Stop 01/28/19 at 11:13 ; Status DC Quetiapine Fumarate (SEROquel) 25 mg QHS PO ; Start 01/24/19 at 21:00; Stop 08/04 at 21:00; Status DC Quetiapine Fumarate (SEROquel) 25 mg QHS PO Last administered on 01/29/19 20: 25; Start 01/23/19 at 23:00 Enoxaparin Sodium (Lovenox 60mg Syringe) 60 mg Q12HR SQ Last administered on 20:25; Start 01/24/19 at 11:30 Magnesium Sulfate 50 ml @ 25 mls/hr 1X ONCE IV Last administered on 01/24/19 17:05; Start 01/24/19 at 16:00; Stop 01/24/19 at 17:59; Status DC Ceftriaxone Sodium (Rocephin) 1 gm Q24H IVP Last administered on 01/29/19 16: 44; Start 01/24/19 at 16:00 Methylprednisolone Sodium Succinate (SOLU-Medrol 40MG VIAL) 80 mg Q8HRS IV Last administered on 01/25/19 05:04; Start 01/24/19 at 17:00; Stop 01/25/19 at 11:55; Status DC Ibuprofen (Motrin) 600 mg PRN Q8HRS PRN PO INFLAMMATION Last administered on 03:13; Start 01/24/19 at 23:15; Stop 01/28/19 at 12:06; Status DC Cyclobenzaprine HCl (Flexeril) 10 mg PRN Q12HR PRN PO MUSCLE SPASMS Last administered on 01/29/19 08:43; Start 01/24/19 at 23:15 Buspirone HCl (Buspar) 10 mg BID PO Last administered on 01/29/19 20:25; Start 01/25/19 at 11:00 Sodium Polystyrene Sulfonate (Kayexalate) 30 gm 1X ONCE PO Last administered on 01/25/19at 11:19; Start 01/25/19 at 11:00; Stop 01/25/19 at 11:03; Status DC Methylprednisolone Sodium Succinate (SOLU-Medrol 40MG VIAL) 40 mg Q8HRS IV Last administered on 01/26/19at 06:23; Start 01/25/19 at 14:00; Stop 01/26/19 at 07:00; Status DC Sodium Polystyrene Sulfonate (Kayexalate) 30 gm 1X ONCE PO ; Start 01/25/19 at 14:30; Stop 01/25/19 at 14:31; Status DC Lactobacillus Rhamnosus (Culturelle) 1 cap BID PO Last administered on at 20:23; Start 01/25/19 at 21:00 Hydralazine HCl (Apresoline Inj) 10 mg PRN Q6HRS PRN IVP ELEVATED BP, SEE COMMENTS Last administered on 01/26/19at 12:41; Start 01/25/19 at 17:15; Stop 10/04 at 17:10; Status DC Gabapentin (Neurontin) 100 mg TID@0900,1300,1800 PO Last administered on at 17:43; Start 01/25/19 at 18:00 Gabapentin (Neurontin) 200 mg QHS PO Last administered on 01/29/19at 20:23; Start 01/25/19 at 21:00 Methylprednisolone Sodium Succinate (SOLU-Medrol 40MG VIAL) 40 mg Q12HR IV Last administered on 01/27/19at 09:34; Start 01/26/19 at 21:00; Stop 01/27/19 at 13:24; Status DC Hydralazine HCl (Apresoline Inj) 10 mg PRN Q4HRS PRN IVP ELEVATED BP, SEE COMMENTS Last administered on 01/29/19at 08:39; Start 01/26/19 at 17:15 Guaifenesin (Mucinex) 600 mg BID PO Last administered on 01/29/19at 20:25; Start 01/27/19 at 21:00 Prednisone (Prednisone) 40 mg DAILY PO Last administered on 01/29/19at 08:37; Start 01/28/19 at 09:00; Stop 01/29/19 at 10:19; Status DC Alteplase, Recombinant (Cathflo For Central Catheter Clearance) 1 mg 1X ONCE INT CAT Last administered on 01/28/19at 08:39; Start 01/28/19 at 07:45; Stop at 07:49; Status DC Oxycodone/ Acetaminophen (Percocet 5/325) 2 tab PRN Q6HRS PRN PO PAIN Last administered on 01/30/19at 02:30; Start 01/28/19 at 11:15 Metoprolol Succinate (Toprol Xl) 25 mg 1X ONCE PO ; Start 01/28/19 at 13:30; Stop 01/28/19 at 13:31; Status UNV Carvedilol (Coreg) 12.5 mg BIDWMEALS PO Last administered on 01/29/19at 16:45; Start 01/28/19 at 17:00 Clonidine HCl (Catapres Tts-2) 1 patch WEEKLY TD Last administered on at 16:40; Start 01/28/19 at 14:00 Hydralazine HCl (Apresoline) 50 mg TID PO Last administered on 01/29/19at 20:24 ; Start 01/29/19 at 10:30 Prednisone (Prednisone) 30 mg DAILY PO ; Start 01/30/19 at 09:00 Active Scripts Active Lidocaine 1 Each Adh..patch 1 Patch TD QHS 30 Days Senna-Time S Tablet (Sennosides/Docusate Sodium) 1 Each Tablet 1 Tab PO BID 14 Days Levemir Flextouch (Insulin Detemir) 100 Unit/1 Ml Insuln.pen 18 Units SQ QHS Novolog Flexpen (Insulin Aspart) 100 Unit/1 Ml Insuln.pen 10 Units SQ TIDAC Topamax (Topiramate) 25 Mg Tablet 25 Mg PO HS Combivent Respimat Inhal (Ipratropium/Albuterol Sulfate) 4 Gm Aer.w.adap 2 Inh IH QID Lasix (Furosemide) 40 Mg Tablet 1 Tab PO DAILY Aldactone (Spironolactone) 25 Mg Tablet 25 Mg PO DAILY Klor-Con M20 (Potassium Chloride) 20 Meq Tablet.er 40 Meq PO DAILY Nystop (Nystatin) 1 Omid Omid 1 Omid TP BID PRN [Aspirin] 325 MG Tablet.dr 325 Mg PO DAILYWBKFT Reported Wellbutrin Sr (Bupropion Hcl) 150 Mg Tablet.er 1 Tab PO BID Aspirin 81 Mg Tab.chew 1 Tab PO DAILY Montelukast Sodium Tablet (Montelukast Sodium) 10 Mg Tablet 10 Mg PO HS Carvedilol (Carvedilol) 6.25 Mg Tablet 6.25 Mg PO BIDWMEALS Pantoprazole Sodium 40 Mg Tablet.dr 40 Mg PO DAILY Vitals/I & O Vital Sign - Last 24 Hours 01/29/19 01/29/19 01/29/19 01/29/19 11:00 11:23 12:03 13:04 Temp 97.7 97.7 Pulse 87 87 Resp 20 18 B/P (MAP) 175/68 (103) 175/68 Pulse Ox 95 96 96 O2 Delivery Nasal Cannula Nasal Cannula Nasal Cannula O2 Flow Rate 3.0 3.0 3.0 01/29/19 01/29/19 01/29/19 01/29/19 13:10 14:59 15:47 16:45 Temp 97.7 97.7 Pulse 77 77 Resp 19 20 B/P (MAP) 151/50 (83) 151/50 Pulse Ox 96 95 92 O2 Delivery Nasal Cannula Nasal Cannula O2 Flow Rate 3.0 3.0 01/29/19 01/29/19 01/29/19 01/29/19 18:51 19:00 19:47 20:00 Temp 97.8 97.8 Pulse 66 Resp 20 20 B/P (MAP) 144/54 (84) Pulse Ox 95 95 96 O2 Delivery Nasal Cannula Nasal Cannula Nasal Cannula Nasal Cannula O2 Flow Rate 3.0 3.0 3.0 3.0 01/29/19 01/29/19 01/30/19 01/30/19 20:24 23:00 02:30 03:00 Temp 97.5 97.8 97.5 97.8 Pulse 66 78 80 Resp 20 20 B/P (MAP) 144/54 152/54 (86) 150/64 (92) Pulse Ox 92 93 O2 Delivery Room Air Nasal Cannula Room Air 01/30/19 01/30/19 01/30/19 03:30 07:00 07:31 Temp 98.2 98.2 Pulse 70 Resp 18 B/P (MAP) 149/49 (82) Pulse Ox 98 100 O2 Delivery Nasal Cannula Nasal Cannula Nasal Cannula O2 Flow Rate 3.0 3.0 3.0 Intake and Output 01/29/19 01/29/19 01/30/19 14:59 22:59 06:59 Intake Total 600 ml 720 ml 400 ml Output Total 600 ml 600 ml Balance 600 ml 120 ml -200 ml KIERA MOREIRA MD Jan 30, 2019 09:04
--- NOTE | 2019-01-30 09:36 | PDOC ---
PROGRESS NOTES Assessment Problems Medical Problems: (1) Acute and chronic respiratory failure ([id number]) Status: Acute (2) Anxiety Status: Acute (3) Hyperglycemia Status: Acute (4) Renal failure Status: Acute Chronic back pain Essential tremor Chronic headaches Chronic neck pain, history of cervical fracture, negative cervical MRI Generalized weakness. Hypertension, diabetes, chronic obstructive pulmonary disease Plan She is requesting stronger narcotics, I told her that we could not control her pain with stronger narcotics and it would simply lead to worse dependence Continue rehabilitation modalities and current medications, I have nothing else to offer for her care Nothing to be gained from continued hospital stay, patient is willing to go home today. Subjective Pain is 10/10 all the time, continuously Objective Vital Signs Date Time Temp Pulse Resp B/P (MAP) Pulse Ox O2 Delivery O2 Flow Rate FiO2 01/30/19 09:02 70 149/49 01/30/19 07:31 100 Nasal Cannula 3.0 01/30/19 07:00 98.2 18 98.2 Intake and Output 01/30/19 06:59 Intake Total 1720 ml Output Total 1200 ml Balance 520 ml Intake Oral 1720 ml Output Urine Total 1200 ml # Voids 3 # Bowel Movements 1 PHYSICAL EXAM Alert. Oriented to time, place and person. PERRL. EOMI. CN: no focal findings. Muscle tone: normal. Muscle strength: 4/5 DTR: 1+ Plantar reflex: flexor Gait: able to stand Sensory exam: no abnormal findings. No cerebellar signs elicited. Review of Relevant I have reviewed the following items kylee (where applicable) has been applied. Labs Laboratory Tests Test 01/28/19 10:15 01/28/19 11:44 01/28/19 16:27 01/28/19 20:12 White Blood Count 6.2 x10^3/uL (4.0-11.0) Red Blood Count 3.35 x10^6/uL (3.50-5.40) Hemoglobin 9.4 g/dL (12.0-15.5) Hematocrit 29.3 % (36.0-47.0) Mean Corpuscular Volume 87 fL (79-100) Mean Corpuscular Hemoglobin 28 pg (25-35) Mean Corpuscular Hemoglobin Concent 32 g/dL (31-37) Red Cell Distribution Width 14.4 % (11.5-14.5) Platelet Count 123 x10^3/uL (140-400) Neutrophils (%) (Auto) 71 % (31-73) Lymphocytes (%) (Auto) 22 % (24-48) Monocytes (%) (Auto) 5 % (0-9) Eosinophils (%) (Auto) 1 % (0-3) Basophils (%) (Auto) 1 % (0-3) Neutrophils # (Auto) 4.4 x10^3uL (1.8-7.7) Lymphocytes # (Auto) 1.3 x10^3/uL (1.0-4.8) Monocytes # (Auto) 0.3 x10^3/uL (0.0-1.1) Eosinophils # (Auto) 0.1 x10^3/uL (0.0-0.7) Basophils # (Auto) 0.0 x10^3/uL (0.0-0.2) Sodium Level 143 mmol/L (136-145) Potassium Level 3.9 mmol/L (3.5-5.1) Chloride Level 103 mmol/L (98-107) Carbon Dioxide Level 35 mmol/L (21-32) Anion Gap 5 (6-14) Blood Urea Nitrogen 36 mg/dL (7-20) Creatinine 1.8 mg/dL (0.6-1.0) Estimated GFR (Cockcroft-Gault) 28.7 Glucose Level 206 mg/dL (70-99) Calcium Level 7.5 mg/dL (8.5-10.1) Phosphorus Level 3.1 mg/dL (2.6-4.7) Albumin 2.6 g/dL (3.4-5.0) Glucose (Fingerstick) 212 mg/dL (70-99) 298 mg/dL (70-99) 270 mg/dL (70-99) Test 01/29/19 06:10 01/29/19 07:32 01/29/19 10:54 01/29/19 16:02 White Blood Count 6.9 x10^3/uL (4.0-11.0) Red Blood Count 3.40 x10^6/uL (3.50-5.40) Hemoglobin 9.6 g/dL (12.0-15.5) Hematocrit 29.7 % (36.0-47.0) Mean Corpuscular Volume 88 fL (79-100) Mean Corpuscular Hemoglobin 28 pg (25-35) Mean Corpuscular Hemoglobin Concent 32 g/dL (31-37) Red Cell Distribution Width 14.7 % (11.5-14.5) Platelet Count 124 x10^3/uL (140-400) Neutrophils (%) (Auto) 68 % (31-73) Lymphocytes (%) (Auto) 25 % (24-48) Monocytes (%) (Auto) 6 % (0-9) Eosinophils (%) (Auto) 1 % (0-3) Basophils (%) (Auto) 0 % (0-3) Neutrophils # (Auto) 4.7 x10^3uL (1.8-7.7) Lymphocytes # (Auto) 1.7 x10^3/uL (1.0-4.8) Monocytes # (Auto) 0.4 x10^3/uL (0.0-1.1) Eosinophils # (Auto) 0.1 x10^3/uL (0.0-0.7) Basophils # (Auto) 0.0 x10^3/uL (0.0-0.2) Sodium Level 142 mmol/L (136-145) Potassium Level 4.2 mmol/L (3.5-5.1) Chloride Level 101 mmol/L (98-107) Carbon Dioxide Level 36 mmol/L (21-32) Anion Gap 5 (6-14) Blood Urea Nitrogen 33 mg/dL (7-20) Creatinine 1.8 mg/dL (0.6-1.0) Estimated GFR (Cockcroft-Gault) 28.7 Glucose Level 150 mg/dL (70-99) Calcium Level 7.7 mg/dL (8.5-10.1) Phosphorus Level 3.8 mg/dL (2.6-4.7) Albumin 2.8 g/dL (3.4-5.0) Glucose (Fingerstick) 144 mg/dL (70-99) 220 mg/dL (70-99) 188 mg/dL (70-99) Test 01/29/19 20:28 01/30/19 05:30 01/30/19 06:54 Glucose (Fingerstick) 307 mg/dL (70-99) 128 mg/dL (70-99) White Blood Count 7.9 x10^3/uL (4.0-11.0) Red Blood Count 3.47 x10^6/uL (3.50-5.40) Hemoglobin 9.7 g/dL (12.0-15.5) Hematocrit 30.3 % (36.0-47.0) Mean Corpuscular Volume 87 fL (79-100) Mean Corpuscular Hemoglobin 28 pg (25-35) Mean Corpuscular Hemoglobin Concent 32 g/dL (31-37) Red Cell Distribution Width 14.8 % (11.5-14.5) Platelet Count 122 x10^3/uL (140-400) Neutrophils (%) (Auto) 70 % (31-73) Lymphocytes (%) (Auto) 22 % (24-48) Monocytes (%) (Auto) 6 % (0-9) Eosinophils (%) (Auto) 2 % (0-3) Basophils (%) (Auto) 1 % (0-3) Neutrophils # (Auto) 5.5 x10^3uL (1.8-7.7) Lymphocytes # (Auto) 1.7 x10^3/uL (1.0-4.8) Monocytes # (Auto) 0.5 x10^3/uL (0.0-1.1) Eosinophils # (Auto) 0.1 x10^3/uL (0.0-0.7) Basophils # (Auto) 0.0 x10^3/uL (0.0-0.2) Sodium Level 140 mmol/L (136-145) Potassium Level 4.1 mmol/L (3.5-5.1) Chloride Level 100 mmol/L (98-107) Carbon Dioxide Level 37 mmol/L (21-32) Anion Gap 3 (6-14) Blood Urea Nitrogen 34 mg/dL (7-20) Creatinine 1.8 mg/dL (0.6-1.0) Estimated GFR (Cockcroft-Gault) 28.7 BUN/Creatinine Ratio 19 (6-20) Glucose Level 162 mg/dL (70-99) Calcium Level 8.3 mg/dL (8.5-10.1) Phosphorus Level 4.3 mg/dL (2.6-4.7) Total Bilirubin 0.5 mg/dL (0.2-1.0) Aspartate Amino Transf (AST/SGOT) 12 U/L (15-37) Alanine Aminotransferase (ALT/SGPT) 20 U/L (14-59) Alkaline Phosphatase 71 U/L (46-116) Total Protein 6.1 g/dL (6.4-8.2) Albumin 2.8 g/dL (3.4-5.0) Albumin/Globulin Ratio 0.8 (1.0-1.7) Laboratory Tests Test 01/29/19 10:54 01/29/19 16:02 01/29/19 20:28 01/30/19 05:30 Glucose (Fingerstick) 220 mg/dL (70-99) 188 mg/dL (70-99) 307 mg/dL (70-99) White Blood Count 7.9 x10^3/uL (4.0-11.0) Red Blood Count 3.47 x10^6/uL (3.50-5.40) Hemoglobin 9.7 g/dL (12.0-15.5) Hematocrit 30.3 % (36.0-47.0) Mean Corpuscular Volume 87 fL (79-100) Mean Corpuscular Hemoglobin 28 pg (25-35) Mean Corpuscular Hemoglobin Concent 32 g/dL (31-37) Red Cell Distribution Width 14.8 % (11.5-14.5) Platelet Count 122 x10^3/uL (140-400) Neutrophils (%) (Auto) 70 % (31-73) Lymphocytes (%) (Auto) 22 % (24-48) Monocytes (%) (Auto) 6 % (0-9) Eosinophils (%) (Auto) 2 % (0-3) Basophils (%) (Auto) 1 % (0-3) Neutrophils # (Auto) 5.5 x10^3uL (1.8-7.7) Lymphocytes # (Auto) 1.7 x10^3/uL (1.0-4.8) Monocytes # (Auto) 0.5 x10^3/uL (0.0-1.1) Eosinophils # (Auto) 0.1 x10^3/uL (0.0-0.7) Basophils # (Auto) 0.0 x10^3/uL (0.0-0.2) Sodium Level 140 mmol/L (136-145) Potassium Level 4.1 mmol/L (3.5-5.1) Chloride Level 100 mmol/L (98-107) Carbon Dioxide Level 37 mmol/L (21-32) Anion Gap 3 (6-14) Blood Urea Nitrogen 34 mg/dL (7-20) Creatinine 1.8 mg/dL (0.6-1.0) Estimated GFR (Cockcroft-Gault) 28.7 BUN/Creatinine Ratio 19 (6-20) Glucose Level 162 mg/dL (70-99) Calcium Level 8.3 mg/dL (8.5-10.1) Phosphorus Level 4.3 mg/dL (2.6-4.7) Total Bilirubin 0.5 mg/dL (0.2-1.0) Aspartate Amino Transf (AST/SGOT) 12 U/L (15-37) Alanine Aminotransferase (ALT/SGPT) 20 U/L (14-59) Alkaline Phosphatase 71 U/L (46-116) Total Protein 6.1 g/dL (6.4-8.2) Albumin 2.8 g/dL (3.4-5.0) Albumin/Globulin Ratio 0.8 (1.0-1.7) Test 01/30/19 06:54 Glucose (Fingerstick) 128 mg/dL (70-99) Microbiology 01/23/19 Blood Culture - Final, Complete NO GROWTH AFTER 5 DAYS Medications Current Medications Albuterol/ Ipratropium (Duoneb) 3 ml 1X ONCE NEB Last administered on at 08:04; Start 01/23/19 at 08:00; Stop 01/23/19 at 08:03; Status DC Methylprednisolone Sodium Succinate (SOLU-Medrol 125MG VIAL) 125 mg 1X ONCE IV Last administered on 01/23/19at 08:25; Start 01/23/19 at 08:00; Stop 01/23/19 at 08:03; Status DC Oxycodone/ Acetaminophen (Percocet 5/325) 1 tab 1X ONCE PO Last administered on 01/23/19at 09:01; Start 01/23/19 at 09:00; Stop 01/23/19 at 09:01; Status DC Ceftriaxone Sodium (Rocephin) 1 gm 1X ONCE IVP Last administered on 01/23/19at 09:00; Start 01/23/19 at 09:00; Stop 01/23/19 at 09:01; Status DC Magnesium Sulfate 50 ml @ 25 mls/hr 1X ONCE IV Last administered on 01/23/19at 15:06; Start 01/23/19 at 09:15; Stop 01/23/19 at 11:14; Status DC Sodium Chloride 1,000 ml @ 1,000 mls/hr 1X ONCE IV Last administered on at 15:07; Start 01/23/19 at 09:15; Stop 01/23/19 at 10:14; Status DC Vancomycin HCl 2 gm/Sodium Chloride 500 ml @ 250 mls/hr 1X ONCE IV Last administered on 01/23/19 09:52; Start 01/23/19 at 09:30; Stop 01/23/19 at 11:29; Status DC Sodium Chloride 1,000 ml @ 150 mls/hr Q6H40M IV Last administered on 06:30; Start 01/23/19 at 09:30; Stop 01/24/19 at 09:29; Status DC Aspirin (Children'S Aspirin) 81 mg DAILY PO Last administered on 01/30/19 09: 02; Start 01/23/19 at 11:00 Bupropion HCl (Wellbutrin Sr) 150 mg BID PO Last administered on 01/30/19 09: 00; Start 01/23/19 at 11:00 Carvedilol (Coreg) 6.25 mg BIDWMEALS PO Last administered on 01/28/19at 08:44; Start 01/23/19 at 11:00; Stop 01/28/19 at 13:32; Status DC Furosemide (Lasix) 40 mg DAILY PO Last administered on 01/30/19 09:01; Start 01/23/19 at 11:00 Nystatin (Nystop) 1 omid PRN BID PRN TP Yeast infection; Start 01/23/19 at 09:30 Potassium Chloride (Klor-Con) 40 meq DAILY PO Last administered on 01/24/19at 08 :51; Start 01/23/19 at 11:00; Stop 01/25/19 at 14:17; Status DC Senna/Docusate Sodium (Senna Plus) 1 tab BID PO Last administered on 4/16/19at 09:00; Start 01/23/19 at 11:00 Insulin Human Lispro (HumaLOG) 10 units TIDWMEALS SQ Last administered on at 09:11; Start 01/23/19 at 12:00 Insulin Glargine (Lantus) 18 units QHS SQ Last administered on 01/29/19at 20:35 ; Start 01/23/19 at 21:00 Lidocaine (Lidoderm) 1 patch QHS TD ; Start 01/23/19 at 21:00; Stop 01/23/19 at 21 :00; Status DC Montelukast Sodium (Singulair) 10 mg QHS PO Last administered on 01/29/19at 20: 22; Start 01/23/19 at 21:00 Spironolactone (Aldactone) 25 mg DAILY PO Last administered on 01/24/19at 08:51 ; Start 01/23/19 at 11:00; Stop 01/25/19 at 14:18; Status DC Topiramate (Topamax) 25 mg QHS PO Last administered on 01/29/19at 20:25; Start 01/23/19 at 21:00 Non-Formulary Medication ([Aspirin] ) 325 mg DAILYWBKFT PO ; Start 01/24/19 at 08:00; Status UNV Pantoprazole Sodium (Protonix) 40 mg DAILYAC PO Last administered on 01/30/19at 09:02; Start 01/23/19 at 11:00 Non-Formulary Medication (Ipratropium/ Albuterol Sulfate (Combivent Respimat Inhal)) 2 inh QID IH ; Start 01/23/19 at 13:00; Status UNV Albuterol/ Ipratropium (Duoneb) 3 ml RTQID NEB Last administered on 01/30/19at 07:31; Start 01/23/19 at 12:00 Insulin Human Lispro (HumaLOG) 0-5 UNITS TIDWMEALS SQ Last administered on 01/29at 17:47; Start 01/23/19 at 12:00 Dextrose (Dextrose 50%-Water Syringe) 12.5 gm PRN Q15MIN PRN IV SEE COMMENTS; Start 01/23/19 at 10:15 Lidocaine/Sodium Bicarbonate (Buffered Lidocaine 1%) 3 ml STK-MED ONCE .ROUTE ; Start 01/23/19 at 13:44; Stop 01/23/19 at 13:45; Status DC Lidocaine/Sodium Bicarbonate (Buffered Lidocaine 1%) 3 ml 1X ONCE INJ Last administered on 01/23/19at 14:01; Start 01/23/19 at 14:00; Stop 01/23/19 at 14:01; Status DC Lidocaine (Lidoderm) 1 patch DAILY TD Last administered on 01/30/19 09:03; Start 01/23/19 at 18:00 Miscellaneous (Lidoderm Patch Removal) 1 ea QHS MC Last administered on at 21:00; Start 01/23/19 at 21:00 Oxycodone/ Acetaminophen (Percocet 5/325) 1 tab PRN Q6HRS PRN PO PAIN Last administered on 01/28/19 10:10; Start 01/23/19 at 22:45; Stop 01/28/19 at 11:13 ; Status DC Quetiapine Fumarate (SEROquel) 25 mg QHS PO ; Start 01/24/19 at 21:00; Stop 08/04 at 21:00; Status DC Quetiapine Fumarate (SEROquel) 25 mg QHS PO Last administered on 01/29/19at 20: 25; Start 01/23/19 at 23:00 Enoxaparin Sodium (Lovenox 60mg Syringe) 60 mg Q12HR SQ Last administered on 09:04; Start 01/24/19 at 11:30 Magnesium Sulfate 50 ml @ 25 mls/hr 1X ONCE IV Last administered on 01/24/19 17:05; Start 01/24/19 at 16:00; Stop 01/24/19 at 17:59; Status DC Ceftriaxone Sodium (Rocephin) 1 gm Q24H IVP Last administered on 01/29/19 16: 44; Start 01/24/19 at 16:00 Methylprednisolone Sodium Succinate (SOLU-Medrol 40MG VIAL) 80 mg Q8HRS IV Last administered on 01/25/19at 05:04; Start 01/24/19 at 17:00; Stop 01/25/19 at 11:55; Status DC Ibuprofen (Motrin) 600 mg PRN Q8HRS PRN PO INFLAMMATION Last administered on 4/ 13/19at 03:13; Start 01/24/19 at 23:15; Stop 01/28/19 at 12:06; Status DC Cyclobenzaprine HCl (Flexeril) 10 mg PRN Q12HR PRN PO MUSCLE SPASMS Last administered on 01/29/19at 08:43; Start 01/24/19 at 23:15 Buspirone HCl (Buspar) 10 mg BID PO Last administered on 01/30/19at 09:01; Start 01/25/19 at 11:00 Sodium Polystyrene Sulfonate (Kayexalate) 30 gm 1X ONCE PO Last administered on 01/25/19at 11:19; Start 01/25/19 at 11:00; Stop 01/25/19 at 11:03; Status DC Methylprednisolone Sodium Succinate (SOLU-Medrol 40MG VIAL) 40 mg Q8HRS IV Last administered on 01/26/19at 06:23; Start 01/25/19 at 14:00; Stop 01/26/19 at 07:00; Status DC Sodium Polystyrene Sulfonate (Kayexalate) 30 gm 1X ONCE PO ; Start 01/25/19 at 14:30; Stop 01/25/19 at 14:31; Status DC Lactobacillus Rhamnosus (Culturelle) 1 cap BID PO Last administered on 09:01; Start 01/25/19 at 21:00 Hydralazine HCl (Apresoline Inj) 10 mg PRN Q6HRS PRN IVP ELEVATED BP, SEE COMMENTS Last administered on 01/26/19at 12:41; Start 01/25/19 at 17:15; Stop 10/04 at 17:10; Status DC Gabapentin (Neurontin) 100 mg TID@0900,1300,1800 PO Last administered on 09:01; Start 01/25/19 at 18:00 Gabapentin (Neurontin) 200 mg QHS PO Last administered on 01/29/19at 20:23; Start 01/25/19 at 21:00 Methylprednisolone Sodium Succinate (SOLU-Medrol 40MG VIAL) 40 mg Q12HR IV Last administered on 01/27/19at 09:34; Start 01/26/19 at 21:00; Stop 01/27/19 at 13:24; Status DC Hydralazine HCl (Apresoline Inj) 10 mg PRN Q4HRS PRN IVP ELEVATED BP, SEE COMMENTS Last administered on 01/29/19at 08:39; Start 01/26/19 at 17:15 Guaifenesin (Mucinex) 600 mg BID PO Last administered on 01/30/19 09:02; Start 01/27/19 at 21:00 Prednisone (Prednisone) 40 mg DAILY PO Last administered on 01/29/19at 08:37; Start 01/28/19 at 09:00; Stop 01/29/19 at 10:19; Status DC Alteplase, Recombinant (Cathflo For Central Catheter Clearance) 1 mg 1X ONCE INT CAT Last administered on 01/28/19at 08:39; Start 01/28/19 at 07:45; Stop at 07:49; Status DC Oxycodone/ Acetaminophen (Percocet 5/325) 2 tab PRN Q6HRS PRN PO PAIN Last administered on 01/30/19at 09:01; Start 01/28/19 at 11:15 Metoprolol Succinate (Toprol Xl) 25 mg 1X ONCE PO ; Start 01/28/19 at 13:30; Stop 01/28/19 at 13:31; Status UNV Carvedilol (Coreg) 12.5 mg BIDWMEALS PO Last administered on 01/30/19 09:02; Start 01/28/19 at 17:00 Clonidine HCl (Catapres Tts-2) 1 patch WEEKLY TD Last administered on at 16:40; Start 01/28/19 at 14:00 Hydralazine HCl (Apresoline) 50 mg TID PO Last administered on 01/30/19at 09:02 ; Start 01/29/19 at 10:30 Prednisone (Prednisone) 30 mg DAILY PO Last administered on 01/30/19at 09:00; Start 01/30/19 at 09:00 Active Scripts Active Lidocaine 1 Each Adh..patch 1 Patch TD QHS 30 Days Senna-Time S Tablet (Sennosides/Docusate Sodium) 1 Each Tablet 1 Tab PO BID 14 Days Levemir Flextouch (Insulin Detemir) 100 Unit/1 Ml Insuln.pen 18 Units SQ QHS Novolog Flexpen (Insulin Aspart) 100 Unit/1 Ml Insuln.pen 10 Units SQ TIDAC Topamax (Topiramate) 25 Mg Tablet 25 Mg PO HS Combivent Respimat Inhal (Ipratropium/Albuterol Sulfate) 4 Gm Aer.w.adap 2 Inh IH QID Lasix (Furosemide) 40 Mg Tablet 1 Tab PO DAILY Aldactone (Spironolactone) 25 Mg Tablet 25 Mg PO DAILY Klor-Con M20 (Potassium Chloride) 20 Meq Tablet.er 40 Meq PO DAILY Nystop (Nystatin) 1 Omid Omid 1 Omid TP BID PRN [Aspirin] 325 MG Tablet.dr 325 Mg PO DAILYWBKFT Reported Wellbutrin Sr (Bupropion Hcl) 150 Mg Tablet.er 1 Tab PO BID Aspirin 81 Mg Tab.chew 1 Tab PO DAILY Montelukast Sodium Tablet (Montelukast Sodium) 10 Mg Tablet 10 Mg PO HS Carvedilol (Carvedilol) 6.25 Mg Tablet 6.25 Mg PO BIDWMEALS Pantoprazole Sodium 40 Mg Tablet.dr 40 Mg PO DAILY Vitals/I & O Vital Sign - Last 24 Hours 01/29/19 01/29/19 01/29/19 01/29/19 11:00 11:23 12:03 13:04 Temp 97.7 97.7 Pulse 87 87 Resp 20 18 B/P (MAP) 175/68 (103) 175/68 Pulse Ox 95 96 96 O2 Delivery Nasal Cannula Nasal Cannula Nasal Cannula O2 Flow Rate 3.0 3.0 3.0 01/29/19 01/29/19 01/29/19 01/29/19 13:10 14:59 15:47 16:45 Temp 97.7 97.7 Pulse 77 77 Resp 19 20 B/P (MAP) 151/50 (83) 151/50 Pulse Ox 96 95 92 O2 Delivery Nasal Cannula Nasal Cannula O2 Flow Rate 3.0 3.0 01/29/19 01/29/19 01/29/19 01/29/19 18:51 19:00 19:47 20:00 Temp 97.8 97.8 Pulse 66 Resp 20 20 B/P (MAP) 144/54 (84) Pulse Ox 95 95 96 O2 Delivery Nasal Cannula Nasal Cannula Nasal Cannula Nasal Cannula O2 Flow Rate 3.0 3.0 3.0 3.0 01/29/19 01/29/19 01/30/19 01/30/19 20:24 23:00 02:30 03:00 Temp 97.5 97.8 97.5 97.8 Pulse 66 78 80 Resp 20 20 B/P (MAP) 144/54 152/54 (86) 150/64 (92) Pulse Ox 92 93 O2 Delivery Room Air Nasal Cannula Room Air 01/30/19 01/30/19 01/30/19 01/30/19 03:30 07:00 07:31 09:02 Temp 98.2 98.2 Pulse 70 70 Resp 18 B/P (MAP) 149/49 (82) 149/49 Pulse Ox 98 100 O2 Delivery Nasal Cannula Nasal Cannula Nasal Cannula O2 Flow Rate 3.0 3.0 3.0 01/30/19 09:02 Pulse 70 B/P (MAP) 149/49 Intake and Output 01/29/19 01/29/19 01/30/19 14:59 22:59 06:59 Intake Total 600 ml 720 ml 400 ml Output Total 600 ml 600 ml Balance 600 ml 120 ml -200 ml GILLES SARGENT MD Jan 30, 2019 09:36
--- NOTE | 2019-01-30 09:57 | PDOC ---
SUBJECTIVE ROS stable OBJECTIVE Vital Signs Vital Signs Date Time Temp Pulse Resp B/P (MAP) Pulse Ox O2 Delivery O2 Flow Rate FiO2 01/30/19 09:02 70 149/49 01/30/19 07:31 100 Nasal Cannula 3.0 01/30/19 07:00 98.2 18 98.2 I & 0 Intake and Output 01/30/19 06:59 Intake Total 1720 ml Output Total 1200 ml Balance 520 ml Intake Oral 1720 ml Output Urine Total 1200 ml # Voids 3 # Bowel Movements 1 PHYSICAL EXAM Physical Exam General: NAD, Morbidly obese HEENT: OM moist, O2 by NC(Chr) NECK Thick, Supple Heart: RRR LUNGS CTA,Non labored ABD- Obese Extremities: Edema 1-2+ Neuro: Normal speech, Cranial nerves 3-12 NL No Arnett DIAGNOSIS/ASSESSMENT Assessment & Plan MUKESH - Vasomotor On Lasix, Aldactone at home Takes NSAID every day Pt insists that she will take NSAID's and she doesn't care if she ends up on HD as she cannot tolerate her pain UA unremarkable Improved ,Stable at her baseline Hyperkalemia- Was on K Supplementation and Aldactone K Normal CKD stage 3 - Baseline Creat from review of PMC records 1.5 to 2.1 since 2013 Patient was seen last by Dr. 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 DM2 on insulin Morbid obesity, extreme HTN- On Clonidine patch, restarted Lasix today Monitor Follow up with Nephrology at Discharge COMMENT/RELEVANT DATA Meds Current Medications Medications (Trade) Dose Ordered Sig/Sunny Start Time Stop Time Status Last Admin Dose Admin Albuterol/ Ipratropium (Duoneb) 3 ml RTQID 01/23/19 12:00 01/30/19 07:31 3 ML Alteplase, Recombinant (Cathflo For Central Catheter Clearance) 1 mg 1X ONCE 01/28/19 07:45 01/28/19 07:49 DC 01/28/19 08:39 1 MG Aspirin (Children'S Aspirin) 81 mg DAILY 01/23/19 11:00 01/30/19 09:02 81 MG Bupropion HCl (Wellbutrin Sr) 150 mg BID 01/23/19 11:00 01/30/19 09:00 150 MG Buspirone HCl (Buspar) 10 mg BID 01/25/19 11:00 01/30/19 09:01 10 MG Carvedilol (Coreg) 12.5 mg BIDWMEALS 01/28/19 17:00 01/30/19 09:02 12.5 MG Ceftriaxone Sodium (Rocephin) 1 gm Q24H 01/24/19 16:00 01/29/19 16:44 1 GM Clonidine HCl (Catapres Tts-2) 1 patch WEEKLY 01/28/19 14:00 01/28/19 16:40 1 PATCH Cyclobenzaprine HCl (Flexeril) 10 mg PRN Q12HR PRN 01/24/19 23:15 01/29/19 08:43 10 MG Dextrose (Dextrose 50%-Water Syringe) 12.5 gm PRN Q15MIN PRN 01/23/19 10:15 Enoxaparin Sodium (Lovenox 60mg Syringe) 60 mg Q12HR 01/24/19 11:30 01/30/19 09:04 60 MG Furosemide (Lasix) 40 mg DAILY 01/23/19 11:00 01/30/19 09:01 40 MG Gabapentin (Neurontin) 200 mg QHS 01/25/19 21:00 01/29/19 20:23 200 MG Guaifenesin (Mucinex) 600 mg BID 01/27/19 21:00 01/30/19 09:02 600 MG Hydralazine HCl (Apresoline Inj) 10 mg PRN Q4HRS PRN 01/26/19 17:15 01/29/19 08:39 10 MG Hydralazine HCl (Apresoline) 50 mg TID 01/29/19 10:30 01/30/19 09:02 50 MG Ibuprofen (Motrin) 600 mg PRN Q8HRS PRN 01/24/19 23:15 01/28/19 12:06 DC 01/27/19 03:13 600 MG Insulin Glargine (Lantus) 18 units QHS 01/23/19 21:00 01/29/19 20:35 18 UNITS Insulin Human Lispro (HumaLOG) 0-5 UNITS TIDWMEALS 01/23/19 12:00 01/29/19 17:47 2 UNITS Lactobacillus Rhamnosus (Culturelle) 1 cap BID 01/25/19 21:00 01/30/19 09:01 1 CAP Lidocaine (Lidoderm) 1 patch DAILY 01/23/19 18:00 01/30/19 09:03 1 PATCH Lidocaine/Sodium Bicarbonate (Buffered Lidocaine 1%) 3 ml 1X ONCE 01/23/19 14:00 01/23/19 14:01 DC 01/23/19 14:01 3 ML Magnesium Sulfate 50 ml @ 25 mls/hr 1X ONCE 01/24/19 16:00 01/24/19 17:59 DC 01/24/19 17:05 25 MLS/HR Methylprednisolone Sodium Succinate (SOLU-Medrol 40MG VIAL) 40 mg Q12HR 01/26/19 21:00 01/27/19 13:24 DC 01/27/19 09:34 40 MG Methylprednisolone Sodium Succinate (SOLU-Medrol 125MG VIAL) 125 mg 1X ONCE 01/23/19 08:00 01/23/19 08:03 DC 01/23/19 08:25 125 MG Metoprolol Succinate (Toprol Xl) 25 mg 1X ONCE 01/28/19 13:30 01/28/19 13:31 UNV Miscellaneous (Lidoderm Patch Removal) 1 ea QHS 01/23/19 21:00 01/28/19 21:00 1 EA Montelukast Sodium (Singulair) 10 mg QHS 01/23/19 21:00 01/29/19 20:22 10 MG Non-Formulary Medication (Ipratropium/ Albuterol Sulfate (Combivent Respimat Inhal)) 2 inh QID 01/23/19 13:00 UNV Non-Formulary Medication ([Aspirin] ) 325 mg DAILYWBKFT 01/24/19 08:00 UNV Nystatin (Nystop) 1 evelia PRN BID PRN 01/23/19 09:30 Oxycodone/ Acetaminophen (Percocet 5/325) 2 tab PRN Q6HRS PRN 01/28/19 11:15 01/30/19 09:01 2 TAB Pantoprazole Sodium (Protonix) 40 mg DAILYAC 01/23/19 11:00 01/30/19 09:02 40 MG Potassium Chloride (Klor-Con) 40 meq DAILY 01/23/19 11:00 01/25/19 14:17 DC 01/24/19 08:51 40 MEQ Prednisone (Prednisone) 30 mg DAILY 01/30/19 09:00 01/30/19 09:00 30 MG Quetiapine Fumarate (SEROquel) 25 mg QHS 01/23/19 23:00 01/29/19 20:25 25 MG Senna/Docusate Sodium (Senna Plus) 1 tab BID 01/23/19 11:00 01/30/19 09:00 1 TAB Sodium Polystyrene Sulfonate (Kayexalate) 30 gm 1X ONCE 01/25/19 14:30 01/25/19 14:31 DC Sodium Chloride 1,000 ml @ 150 mls/hr Q6H40M 01/23/19 09:30 01/24/19 09:29 DC 01/24/19 06:30 150 MLS/HR Spironolactone (Aldactone) 25 mg DAILY 01/23/19 11:00 01/25/19 14:18 DC 01/24/19 08:51 25 MG Topiramate (Topamax) 25 mg QHS 01/23/19 21:00 01/29/19 20:25 25 MG Vancomycin HCl 2 gm/Sodium Chloride 500 ml @ 250 mls/hr 1X ONCE 01/23/19 09:30 01/23/19 11:29 DC 01/23/19 09:52 250 MLS/HR Lab Laboratory Tests Test 01/29/19 10:54 01/29/19 16:02 01/29/19 20:28 01/30/19 05:30 Glucose (Fingerstick) 220 mg/dL (70-99) 188 mg/dL (70-99) 307 mg/dL (70-99) White Blood Count 7.9 x10^3/uL (4.0-11.0) Red Blood Count 3.47 x10^6/uL (3.50-5.40) Hemoglobin 9.7 g/dL (12.0-15.5) Hematocrit 30.3 % (36.0-47.0) Mean Corpuscular Volume 87 fL (79-100) Mean Corpuscular Hemoglobin 28 pg (25-35) Mean Corpuscular Hemoglobin Concent 32 g/dL (31-37) Red Cell Distribution Width 14.8 % (11.5-14.5) Platelet Count 122 x10^3/uL (140-400) Neutrophils (%) (Auto) 70 % (31-73) Lymphocytes (%) (Auto) 22 % (24-48) Monocytes (%) (Auto) 6 % (0-9) Eosinophils (%) (Auto) 2 % (0-3) Basophils (%) (Auto) 1 % (0-3) Neutrophils # (Auto) 5.5 x10^3uL (1.8-7.7) Lymphocytes # (Auto) 1.7 x10^3/uL (1.0-4.8) Monocytes # (Auto) 0.5 x10^3/uL (0.0-1.1) Eosinophils # (Auto) 0.1 x10^3/uL (0.0-0.7) Basophils # (Auto) 0.0 x10^3/uL (0.0-0.2) Sodium Level 140 mmol/L (136-145) Potassium Level 4.1 mmol/L (3.5-5.1) Chloride Level 100 mmol/L (98-107) Carbon Dioxide Level 37 mmol/L (21-32) Anion Gap 3 (6-14) Blood Urea Nitrogen 34 mg/dL (7-20) Creatinine 1.8 mg/dL (0.6-1.0) Estimated GFR (Cockcroft-Gault) 28.7 BUN/Creatinine Ratio 19 (6-20) Glucose Level 162 mg/dL (70-99) Calcium Level 8.3 mg/dL (8.5-10.1) Phosphorus Level 4.3 mg/dL (2.6-4.7) Total Bilirubin 0.5 mg/dL (0.2-1.0) Aspartate Amino Transf (AST/SGOT) 12 U/L (15-37) Alanine Aminotransferase (ALT/SGPT) 20 U/L (14-59) Alkaline Phosphatase 71 U/L (46-116) Total Protein 6.1 g/dL (6.4-8.2) Albumin 2.8 g/dL (3.4-5.0) Albumin/Globulin Ratio 0.8 (1.0-1.7) Test 01/30/19 06:54 Glucose (Fingerstick) 128 mg/dL (70-99) Results All relevant outside records, renal labs, imaging studies, telemetry/EKG's were reviewed. GRAY PÉREZ MD Jan 30, 2019 09:57
[2019-01-30 10:40] VITALS: BP 154/70
--- NOTE | 2019-01-30 10:49 | PDOC ---
PROGRESS NOTES History of Present Illness History of Present Illness VTE Prophylaxis Ordered VTE Prophylaxis Devices: Yes VTE Pharmacological Prophylaxi: Yes Assessment/Plan Assessment/Plan inc anxiety SEVERE EXAC OF COPD with extreme hypoxia on presentation/ PNEUMONITIS ACUTE SIRS hx co2 retention, JOSELYN Acute on chronic combined hypoxic and hx severe hypercapnic respiratory failure DM2 on insulin Acute renal failure, vasomotor CKD3 HTN morbid obesity, extreme chronic pain syndrome At L5-S1, mild degenerative endplate spurring and diffuse disc bulging is seen extending into the inferior aspect of the left neural foramen. There is moderate to severe narrowing of the left neural foramen. Laminectomy is apparent on the left side she has had 5 back surgeries hyperkalemia, corrected There is degenerative disc disease with disc space narrowing at L3-4, L4-5 and L5-S1. There is no abnormal subluxation in the lower lumbar spine. There is slight retrolisthesis of L2 relative to L3. There is facet arthritis in the lower lumbar spine. CKD stage 3-4 MUKESH very POORLY CONTROLLED HTN 01/26 states low back pain is just intolerable will order mri l/s 01/28 less SOA AND PAIN IMPROVING plan: home TODAY with home health if bp stable refuses inpatient rehab gabapentin 100mg po tid buspar 10mg po bid no narcotics due to hypercapnea, SEVERE consult pulm IV ROCEPHIN, VANC in er, d/c vanc due to ckd bipap at night, pt refuses. on NC duoneb, QID insulin to lantus 15u qhs, aspart 5u tid, ssi cough meds dvt ppx PTOT abdominal binder when up consulted dr johnson STEROIDS, taper iv fluid support nephrology consult MRI L/S OUT PT likely not helpful , not a surgical candidate per neurology abg 01/28 D/C IBUPROFEN INC COREG TO 12.5 MG PO BID ADD HYDRALAZINE 50MG PO tid 44 D/C PLANNING min pt exam, d/c planning chart review,> 50% of time with pt exam, chart review, pt care coordination AT HIGH RISK OF PULM ARREST, DUE TO BIPAP NONCOMPLIANCE PER MY CHART REVIEW Vitals Vitals Vital Signs Date Time Temp Pulse Resp B/P (MAP) Pulse Ox O2 Delivery O2 Flow Rate FiO2 01/30/19 10:40 98.0 75 18 154/70 (98) 98 Nasal Cannula 3.0 98.0 Physical Exam General: Alert, Oriented X3, Cooperative, mild distress Heart: Regular rate, Normal S1, Normal S2, No murmurs Lungs: Clear Abdomen: Normal bowel sounds, Soft, Other (very obese) Extremities: No clubbing, No cyanosis Skin: No breakdown, No significant lesion Labs LABS Laboratory Tests Test 01/29/19 10:54 01/29/19 16:02 01/29/19 20:28 01/30/19 05:30 Glucose (Fingerstick) 220 mg/dL (70-99) 188 mg/dL (70-99) 307 mg/dL (70-99) White Blood Count 7.9 x10^3/uL (4.0-11.0) Red Blood Count 3.47 x10^6/uL (3.50-5.40) Hemoglobin 9.7 g/dL (12.0-15.5) Hematocrit 30.3 % (36.0-47.0) Mean Corpuscular Volume 87 fL (79-100) Mean Corpuscular Hemoglobin 28 pg (25-35) Mean Corpuscular Hemoglobin Concent 32 g/dL (31-37) Red Cell Distribution Width 14.8 % (11.5-14.5) Platelet Count 122 x10^3/uL (140-400) Neutrophils (%) (Auto) 70 % (31-73) Lymphocytes (%) (Auto) 22 % (24-48) Monocytes (%) (Auto) 6 % (0-9) Eosinophils (%) (Auto) 2 % (0-3) Basophils (%) (Auto) 1 % (0-3) Neutrophils # (Auto) 5.5 x10^3uL (1.8-7.7) Lymphocytes # (Auto) 1.7 x10^3/uL (1.0-4.8) Monocytes # (Auto) 0.5 x10^3/uL (0.0-1.1) Eosinophils # (Auto) 0.1 x10^3/uL (0.0-0.7) Basophils # (Auto) 0.0 x10^3/uL (0.0-0.2) Sodium Level 140 mmol/L (136-145) Potassium Level 4.1 mmol/L (3.5-5.1) Chloride Level 100 mmol/L (98-107) Carbon Dioxide Level 37 mmol/L (21-32) Anion Gap 3 (6-14) Blood Urea Nitrogen 34 mg/dL (7-20) Creatinine 1.8 mg/dL (0.6-1.0) Estimated GFR (Cockcroft-Gault) 28.7 BUN/Creatinine Ratio 19 (6-20) Glucose Level 162 mg/dL (70-99) Calcium Level 8.3 mg/dL (8.5-10.1) Phosphorus Level 4.3 mg/dL (2.6-4.7) Total Bilirubin 0.5 mg/dL (0.2-1.0) Aspartate Amino Transf (AST/SGOT) 12 U/L (15-37) Alanine Aminotransferase (ALT/SGPT) 20 U/L (14-59) Alkaline Phosphatase 71 U/L (46-116) Total Protein 6.1 g/dL (6.4-8.2) Albumin 2.8 g/dL (3.4-5.0) Albumin/Globulin Ratio 0.8 (1.0-1.7) Test 01/30/19 06:54 Glucose (Fingerstick) 128 mg/dL (70-99) Assessment and Plan Assessmemt and Plan Problems Medical Problems: (1) Acute and chronic respiratory failure ([id number]) Status: Acute (2) Anxiety Status: Acute (3) Hyperglycemia Status: Acute (4) Renal failure Status: Acute Comment Review of Relevant I have reviewed the following items kylee (where applicable) has been applied. Labs Laboratory Tests Test 01/28/19 11:44 01/28/19 16:27 01/28/19 20:12 01/29/19 06:10 Glucose (Fingerstick) 212 mg/dL (70-99) 298 mg/dL (70-99) 270 mg/dL (70-99) White Blood Count 6.9 x10^3/uL (4.0-11.0) Red Blood Count 3.40 x10^6/uL (3.50-5.40) Hemoglobin 9.6 g/dL (12.0-15.5) Hematocrit 29.7 % (36.0-47.0) Mean Corpuscular Volume 88 fL (79-100) Mean Corpuscular Hemoglobin 28 pg (25-35) Mean Corpuscular Hemoglobin Concent 32 g/dL (31-37) Red Cell Distribution Width 14.7 % (11.5-14.5) Platelet Count 124 x10^3/uL (140-400) Neutrophils (%) (Auto) 68 % (31-73) Lymphocytes (%) (Auto) 25 % (24-48) Monocytes (%) (Auto) 6 % (0-9) Eosinophils (%) (Auto) 1 % (0-3) Basophils (%) (Auto) 0 % (0-3) Neutrophils # (Auto) 4.7 x10^3uL (1.8-7.7) Lymphocytes # (Auto) 1.7 x10^3/uL (1.0-4.8) Monocytes # (Auto) 0.4 x10^3/uL (0.0-1.1) Eosinophils # (Auto) 0.1 x10^3/uL (0.0-0.7) Basophils # (Auto) 0.0 x10^3/uL (0.0-0.2) Sodium Level 142 mmol/L (136-145) Potassium Level 4.2 mmol/L (3.5-5.1) Chloride Level 101 mmol/L (98-107) Carbon Dioxide Level 36 mmol/L (21-32) Anion Gap 5 (6-14) Blood Urea Nitrogen 33 mg/dL (7-20) Creatinine 1.8 mg/dL (0.6-1.0) Estimated GFR (Cockcroft-Gault) 28.7 Glucose Level 150 mg/dL (70-99) Calcium Level 7.7 mg/dL (8.5-10.1) Phosphorus Level 3.8 mg/dL (2.6-4.7) Albumin 2.8 g/dL (3.4-5.0) Test 01/29/19 07:32 01/29/19 10:54 01/29/19 16:02 01/29/19 20:28 Glucose (Fingerstick) 144 mg/dL (70-99) 220 mg/dL (70-99) 188 mg/dL (70-99) 307 mg/dL (70-99) Test 01/30/19 05:30 01/30/19 06:54 White Blood Count 7.9 x10^3/uL (4.0-11.0) Red Blood Count 3.47 x10^6/uL (3.50-5.40) Hemoglobin 9.7 g/dL (12.0-15.5) Hematocrit 30.3 % (36.0-47.0) Mean Corpuscular Volume 87 fL (79-100) Mean Corpuscular Hemoglobin 28 pg (25-35) Mean Corpuscular Hemoglobin Concent 32 g/dL (31-37) Red Cell Distribution Width 14.8 % (11.5-14.5) Platelet Count 122 x10^3/uL (140-400) Neutrophils (%) (Auto) 70 % (31-73) Lymphocytes (%) (Auto) 22 % (24-48) Monocytes (%) (Auto) 6 % (0-9) Eosinophils (%) (Auto) 2 % (0-3) Basophils (%) (Auto) 1 % (0-3) Neutrophils # (Auto) 5.5 x10^3uL (1.8-7.7) Lymphocytes # (Auto) 1.7 x10^3/uL (1.0-4.8) Monocytes # (Auto) 0.5 x10^3/uL (0.0-1.1) Eosinophils # (Auto) 0.1 x10^3/uL (0.0-0.7) Basophils # (Auto) 0.0 x10^3/uL (0.0-0.2) Sodium Level 140 mmol/L (136-145) Potassium Level 4.1 mmol/L (3.5-5.1) Chloride Level 100 mmol/L (98-107) Carbon Dioxide Level 37 mmol/L (21-32) Anion Gap 3 (6-14) Blood Urea Nitrogen 34 mg/dL (7-20) Creatinine 1.8 mg/dL (0.6-1.0) Estimated GFR (Cockcroft-Gault) 28.7 BUN/Creatinine Ratio 19 (6-20) Glucose Level 162 mg/dL (70-99) Calcium Level 8.3 mg/dL (8.5-10.1) Phosphorus Level 4.3 mg/dL (2.6-4.7) Total Bilirubin 0.5 mg/dL (0.2-1.0) Aspartate Amino Transf (AST/SGOT) 12 U/L (15-37) Alanine Aminotransferase (ALT/SGPT) 20 U/L (14-59) Alkaline Phosphatase 71 U/L (46-116) Total Protein 6.1 g/dL (6.4-8.2) Albumin 2.8 g/dL (3.4-5.0) Albumin/Globulin Ratio 0.8 (1.0-1.7) Glucose (Fingerstick) 128 mg/dL (70-99) Laboratory Tests Test 01/29/19 10:54 01/29/19 16:02 01/29/19 20:28 01/30/19 05:30 Glucose (Fingerstick) 220 mg/dL (70-99) 188 mg/dL (70-99) 307 mg/dL (70-99) White Blood Count 7.9 x10^3/uL (4.0-11.0) Red Blood Count 3.47 x10^6/uL (3.50-5.40) Hemoglobin 9.7 g/dL (12.0-15.5) Hematocrit 30.3 % (36.0-47.0) Mean Corpuscular Volume 87 fL (79-100) Mean Corpuscular Hemoglobin 28 pg (25-35) Mean Corpuscular Hemoglobin Concent 32 g/dL (31-37) Red Cell Distribution Width 14.8 % (11.5-14.5) Platelet Count 122 x10^3/uL (140-400) Neutrophils (%) (Auto) 70 % (31-73) Lymphocytes (%) (Auto) 22 % (24-48) Monocytes (%) (Auto) 6 % (0-9) Eosinophils (%) (Auto) 2 % (0-3) Basophils (%) (Auto) 1 % (0-3) Neutrophils # (Auto) 5.5 x10^3uL (1.8-7.7) Lymphocytes # (Auto) 1.7 x10^3/uL (1.0-4.8) Monocytes # (Auto) 0.5 x10^3/uL (0.0-1.1) Eosinophils # (Auto) 0.1 x10^3/uL (0.0-0.7) Basophils # (Auto) 0.0 x10^3/uL (0.0-0.2) Sodium Level 140 mmol/L (136-145) Potassium Level 4.1 mmol/L (3.5-5.1) Chloride Level 100 mmol/L (98-107) Carbon Dioxide Level 37 mmol/L (21-32) Anion Gap 3 (6-14) Blood Urea Nitrogen 34 mg/dL (7-20) Creatinine 1.8 mg/dL (0.6-1.0) Estimated GFR (Cockcroft-Gault) 28.7 BUN/Creatinine Ratio 19 (6-20) Glucose Level 162 mg/dL (70-99) Calcium Level 8.3 mg/dL (8.5-10.1) Phosphorus Level 4.3 mg/dL (2.6-4.7) Total Bilirubin 0.5 mg/dL (0.2-1.0) Aspartate Amino Transf (AST/SGOT) 12 U/L (15-37) Alanine Aminotransferase (ALT/SGPT) 20 U/L (14-59) Alkaline Phosphatase 71 U/L (46-116) Total Protein 6.1 g/dL (6.4-8.2) Albumin 2.8 g/dL (3.4-5.0) Albumin/Globulin Ratio 0.8 (1.0-1.7) Test 01/30/19 06:54 Glucose (Fingerstick) 128 mg/dL (70-99) Microbiology 01/23/19 Blood Culture - Final, Complete NO GROWTH AFTER 5 DAYS Medications Current Medications Albuterol/ Ipratropium (Duoneb) 3 ml 1X ONCE NEB Last administered on at 08:04; Start 01/23/19 at 08:00; Stop 01/23/19 at 08:03; Status DC Methylprednisolone Sodium Succinate (SOLU-Medrol 125MG VIAL) 125 mg 1X ONCE IV Last administered on 01/23/19at 08:25; Start 01/23/19 at 08:00; Stop 01/23/19 at 08:03; Status DC Oxycodone/ Acetaminophen (Percocet 5/325) 1 tab 1X ONCE PO Last administered on 01/23/19at 09:01; Start 01/23/19 at 09:00; Stop 01/23/19 at 09:01; Status DC Ceftriaxone Sodium (Rocephin) 1 gm 1X ONCE IVP Last administered on 01/23/19at 09:00; Start 01/23/19 at 09:00; Stop 01/23/19 at 09:01; Status DC Magnesium Sulfate 50 ml @ 25 mls/hr 1X ONCE IV Last administered on 01/23/19at 15:06; Start 01/23/19 at 09:15; Stop 01/23/19 at 11:14; Status DC Sodium Chloride 1,000 ml @ 1,000 mls/hr 1X ONCE IV Last administered on at 15:07; Start 01/23/19 at 09:15; Stop 01/23/19 at 10:14; Status DC Vancomycin HCl 2 gm/Sodium Chloride 500 ml @ 250 mls/hr 1X ONCE IV Last administered on 01/23/19at 09:52; Start 01/23/19 at 09:30; Stop 01/23/19 at 11:29; Status DC Sodium Chloride 1,000 ml @ 150 mls/hr Q6H40M IV Last administered on at 06:30; Start 01/23/19 at 09:30; Stop 01/24/19 at 09:29; Status DC Aspirin (Children'S Aspirin) 81 mg DAILY PO Last administered on 01/30/19at 09: 02; Start 01/23/19 at 11:00 Bupropion HCl (Wellbutrin Sr) 150 mg BID PO Last administered on 01/30/19 09: 00; Start 01/23/19 at 11:00 Carvedilol (Coreg) 6.25 mg BIDWMEALS PO Last administered on 01/28/19at 08:44; Start 01/23/19 at 11:00; Stop 01/28/19 at 13:32; Status DC Furosemide (Lasix) 40 mg DAILY PO Last administered on 01/30/19at 09:01; Start 01/23/19 at 11:00 Nystatin (Nystop) 1 omid PRN BID PRN TP Yeast infection; Start 01/23/19 at 09:30 Potassium Chloride (Klor-Con) 40 meq DAILY PO Last administered on 01/24/19at 08 :51; Start 01/23/19 at 11:00; Stop 01/25/19 at 14:17; Status DC Senna/Docusate Sodium (Senna Plus) 1 tab BID PO Last administered on 01/30/19at 09:00; Start 01/23/19 at 11:00 Insulin Human Lispro (HumaLOG) 10 units TIDWMEALS SQ Last administered on 09:11; Start 01/23/19 at 12:00 Insulin Glargine (Lantus) 18 units QHS SQ Last administered on 01/29/19at 20:35 ; Start 01/23/19 at 21:00 Lidocaine (Lidoderm) 1 patch QHS TD ; Start 01/23/19 at 21:00; Stop 01/23/19 at 21 :00; Status DC Montelukast Sodium (Singulair) 10 mg QHS PO Last administered on 01/29/19 20: 22; Start 01/23/19 at 21:00 Spironolactone (Aldactone) 25 mg DAILY PO Last administered on 01/24/19 08:51 ; Start 01/23/19 at 11:00; Stop 01/25/19 at 14:18; Status DC Topiramate (Topamax) 25 mg QHS PO Last administered on 01/29/19 20:25; Start 01/23/19 at 21:00 Non-Formulary Medication ([Aspirin] ) 325 mg DAILYWBKFT PO ; Start 01/24/19 at 08:00; Status UNV Pantoprazole Sodium (Protonix) 40 mg DAILYAC PO Last administered on 01/30/19 09:02; Start 01/23/19 at 11:00 Non-Formulary Medication (Ipratropium/ Albuterol Sulfate (Combivent Respimat Inhal)) 2 inh QID IH ; Start 01/23/19 at 13:00; Status UNV Albuterol/ Ipratropium (Duoneb) 3 ml RTQID NEB Last administered on 01/30/19 07:31; Start 01/23/19 at 12:00 Insulin Human Lispro (HumaLOG) 0-5 UNITS TIDWMEALS SQ Last administered on 01/29at 17:47; Start 01/23/19 at 12:00 Dextrose (Dextrose 50%-Water Syringe) 12.5 gm PRN Q15MIN PRN IV SEE COMMENTS; Start 01/23/19 at 10:15 Lidocaine/Sodium Bicarbonate (Buffered Lidocaine 1%) 3 ml STK-MED ONCE .ROUTE ; Start 01/23/19 at 13:44; Stop 01/23/19 at 13:45; Status DC Lidocaine/Sodium Bicarbonate (Buffered Lidocaine 1%) 3 ml 1X ONCE INJ Last administered on 01/23/19at 14:01; Start 01/23/19 at 14:00; Stop 01/23/19 at 14:01; Status DC Lidocaine (Lidoderm) 1 patch DAILY TD Last administered on 01/30/19at 09:03; Start 01/23/19 at 18:00 Miscellaneous (Lidoderm Patch Removal) 1 ea QHS MC Last administered on at 21:00; Start 01/23/19 at 21:00 Oxycodone/ Acetaminophen (Percocet 5/325) 1 tab PRN Q6HRS PRN PO PAIN Last administered on 01/28/19at 10:10; Start 01/23/19 at 22:45; Stop 01/28/19 at 11:13 ; Status DC Quetiapine Fumarate (SEROquel) 25 mg QHS PO ; Start 01/24/19 at 21:00; Stop 08/04 at 21:00; Status DC Quetiapine Fumarate (SEROquel) 25 mg QHS PO Last administered on 01/29/19at 20: 25; Start 01/23/19 at 23:00 Enoxaparin Sodium (Lovenox 60mg Syringe) 60 mg Q12HR SQ Last administered on at 09:04; Start 01/24/19 at 11:30 Magnesium Sulfate 50 ml @ 25 mls/hr 1X ONCE IV Last administered on 01/24/19at 17:05; Start 01/24/19 at 16:00; Stop 01/24/19 at 17:59; Status DC Ceftriaxone Sodium (Rocephin) 1 gm Q24H IVP Last administered on 01/29/19at 16: 44; Start 01/24/19 at 16:00 Methylprednisolone Sodium Succinate (SOLU-Medrol 40MG VIAL) 80 mg Q8HRS IV Last administered on 01/25/19at 05:04; Start 01/24/19 at 17:00; Stop 01/25/19 at 11:55; Status DC Ibuprofen (Motrin) 600 mg PRN Q8HRS PRN PO INFLAMMATION Last administered on at 03:13; Start 01/24/19 at 23:15; Stop 01/28/19 at 12:06; Status DC Cyclobenzaprine HCl (Flexeril) 10 mg PRN Q12HR PRN PO MUSCLE SPASMS Last administered on 01/29/19at 08:43; Start 01/24/19 at 23:15 Buspirone HCl (Buspar) 10 mg BID PO Last administered on 01/30/19at 09:01; Start 01/25/19 at 11:00 Sodium Polystyrene Sulfonate (Kayexalate) 30 gm 1X ONCE PO Last administered on 01/25/19at 11:19; Start 01/25/19 at 11:00; Stop 01/25/19 at 11:03; Status DC Methylprednisolone Sodium Succinate (SOLU-Medrol 40MG VIAL) 40 mg Q8HRS IV Last administered on 01/26/19at 06:23; Start 01/25/19 at 14:00; Stop 01/26/19 at 07:00; Status DC Sodium Polystyrene Sulfonate (Kayexalate) 30 gm 1X ONCE PO ; Start 01/25/19 at 14:30; Stop 01/25/19 at 14:31; Status DC Lactobacillus Rhamnosus (Culturelle) 1 cap BID PO Last administered on 09:01; Start 01/25/19 at 21:00 Hydralazine HCl (Apresoline Inj) 10 mg PRN Q6HRS PRN IVP ELEVATED BP, SEE COMMENTS Last administered on 01/26/19at 12:41; Start 01/25/19 at 17:15; Stop 10/04 at 17:10; Status DC Gabapentin (Neurontin) 100 mg TID@0900,1300,1800 PO Last administered on 09:01; Start 01/25/19 at 18:00 Gabapentin (Neurontin) 200 mg QHS PO Last administered on 01/29/19at 20:23; Start 01/25/19 at 21:00 Methylprednisolone Sodium Succinate (SOLU-Medrol 40MG VIAL) 40 mg Q12HR IV Last administered on 01/27/19at 09:34; Start 01/26/19 at 21:00; Stop 01/27/19 at 13:24; Status DC Hydralazine HCl (Apresoline Inj) 10 mg PRN Q4HRS PRN IVP ELEVATED BP, SEE COMMENTS Last administered on 01/29/19at 08:39; Start 01/26/19 at 17:15 Guaifenesin (Mucinex) 600 mg BID PO Last administered on 01/30/19 09:02; Start 01/27/19 at 21:00 Prednisone (Prednisone) 40 mg DAILY PO Last administered on 01/29/19at 08:37; Start 01/28/19 at 09:00; Stop 01/29/19 at 10:19; Status DC Alteplase, Recombinant (Cathflo For Central Catheter Clearance) 1 mg 1X ONCE INT CAT Last administered on 01/28/19at 08:39; Start 01/28/19 at 07:45; Stop at 07:49; Status DC Oxycodone/ Acetaminophen (Percocet 5/325) 2 tab PRN Q6HRS PRN PO PAIN Last administered on 01/30/19at 09:01; Start 01/28/19 at 11:15 Metoprolol Succinate (Toprol Xl) 25 mg 1X ONCE PO ; Start 01/28/19 at 13:30; Stop 01/28/19 at 13:31; Status UNV Carvedilol (Coreg) 12.5 mg BIDWMEALS PO Last administered on 01/30/19 09:02; Start 01/28/19 at 17:00 Clonidine HCl (Catapres Tts-2) 1 patch WEEKLY TD Last administered on at 16:40; Start 01/28/19 at 14:00 Hydralazine HCl (Apresoline) 50 mg TID PO Last administered on 01/30/19at 09:02 ; Start 01/29/19 at 10:30 Prednisone (Prednisone) 30 mg DAILY PO Last administered on 01/30/19at 09:00; Start 01/30/19 at 09:00 Active Scripts Active Lidocaine 1 Each Adh..patch 1 Patch TD QHS 30 Days Senna-Time S Tablet (Sennosides/Docusate Sodium) 1 Each Tablet 1 Tab PO BID 14 Days Levemir Flextouch (Insulin Detemir) 100 Unit/1 Ml Insuln.pen 18 Units SQ QHS Novolog Flexpen (Insulin Aspart) 100 Unit/1 Ml Insuln.pen 10 Units SQ TIDAC Topamax (Topiramate) 25 Mg Tablet 25 Mg PO HS Combivent Respimat Inhal (Ipratropium/Albuterol Sulfate) 4 Gm Aer.w.adap 2 Inh IH QID Lasix (Furosemide) 40 Mg Tablet 1 Tab PO DAILY Aldactone (Spironolactone) 25 Mg Tablet 25 Mg PO DAILY Klor-Con M20 (Potassium Chloride) 20 Meq Tablet.er 40 Meq PO DAILY Nystop (Nystatin) 1 Omid Omid 1 Omid TP BID PRN [Aspirin] 325 MG Tablet.dr 325 Mg PO DAILYWBKFT Reported Wellbutrin Sr (Bupropion Hcl) 150 Mg Tablet.er 1 Tab PO BID Aspirin 81 Mg Tab.chew 1 Tab PO DAILY Montelukast Sodium Tablet (Montelukast Sodium) 10 Mg Tablet 10 Mg PO HS Carvedilol (Carvedilol) 6.25 Mg Tablet 6.25 Mg PO BIDWMEALS Pantoprazole Sodium 40 Mg Tablet.dr 40 Mg PO DAILY Vitals/I & O Vital Sign - Last 24 Hours 01/29/19 01/29/19 01/29/19 01/29/19 11:00 11:23 12:03 13:04 Temp 97.7 97.7 Pulse 87 87 Resp 20 18 B/P (MAP) 175/68 (103) 175/68 Pulse Ox 95 96 96 O2 Delivery Nasal Cannula Nasal Cannula Nasal Cannula O2 Flow Rate 3.0 3.0 3.0 01/29/19 01/29/19 01/29/19 01/29/19 13:10 14:59 15:47 16:45 Temp 97.7 97.7 Pulse 77 77 Resp 19 20 B/P (MAP) 151/50 (83) 151/50 Pulse Ox 96 95 92 O2 Delivery Nasal Cannula Nasal Cannula O2 Flow Rate 3.0 3.0 01/29/19 01/29/19 01/29/19 01/29/19 18:51 19:00 19:47 20:00 Temp 97.8 97.8 Pulse 66 Resp 20 20 B/P (MAP) 144/54 (84) Pulse Ox 95 95 96 O2 Delivery Nasal Cannula Nasal Cannula Nasal Cannula Nasal Cannula O2 Flow Rate 3.0 3.0 3.0 3.0 01/29/19 01/29/19 01/30/19 01/30/19 20:24 23:00 02:30 03:00 Temp 97.5 97.8 97.5 97.8 Pulse 66 78 80 Resp 20 20 B/P (MAP) 144/54 152/54 (86) 150/64 (92) Pulse Ox 92 93 O2 Delivery Room Air Nasal Cannula Room Air 01/30/19 01/30/19 01/30/19 01/30/19 03:30 07:00 07:31 09:02 Temp 98.2 98.2 Pulse 70 70 Resp 18 B/P (MAP) 149/49 (82) 149/49 Pulse Ox 98 100 O2 Delivery Nasal Cannula Nasal Cannula Nasal Cannula O2 Flow Rate 3.0 3.0 3.0 01/30/19 01/30/19 09:02 10:40 Temp 98.0 98.0 Pulse 70 75 Resp 18 B/P (MAP) 149/49 154/70 (98) Pulse Ox 98 O2 Delivery Nasal Cannula O2 Flow Rate 3.0 Intake and Output 01/29/19 01/29/19 01/30/19 14:59 22:59 06:59 Intake Total 600 ml 720 ml 400 ml Output Total 600 ml 600 ml Balance 600 ml 120 ml -200 ml ACE ZELAYA MD Jan 30, 2019 10:49
--- NOTE | 2019-01-30 11:49 | PDOC ---
PULMONARY PROGRESS NOTES Subjective sob cough nasal congestion better, c/o back pain Vitals Vital Signs Date Time Temp Pulse Resp B/P (MAP) Pulse Ox O2 Delivery O2 Flow Rate FiO2 01/30/19 11:25 97 Nasal Cannula 3.0 01/30/19 10:40 98.0 75 18 154/70 (98) 98.0 ROS: No Nausea General: Alert, No acute distress Lungs: Clear Cardiovascular: S1, S2 Abdomen: Soft, Non-tender Neuro Exam: Alert Extremities: Other (=edema) Skin: Warm Labs Laboratory Tests Test 01/28/19 16:27 01/28/19 20:12 01/29/19 06:10 01/29/19 07:32 Glucose (Fingerstick) 298 mg/dL (70-99) 270 mg/dL (70-99) 144 mg/dL (70-99) White Blood Count 6.9 x10^3/uL (4.0-11.0) Red Blood Count 3.40 x10^6/uL (3.50-5.40) Hemoglobin 9.6 g/dL (12.0-15.5) Hematocrit 29.7 % (36.0-47.0) Mean Corpuscular Volume 88 fL (79-100) Mean Corpuscular Hemoglobin 28 pg (25-35) Mean Corpuscular Hemoglobin Concent 32 g/dL (31-37) Red Cell Distribution Width 14.7 % (11.5-14.5) Platelet Count 124 x10^3/uL (140-400) Neutrophils (%) (Auto) 68 % (31-73) Lymphocytes (%) (Auto) 25 % (24-48) Monocytes (%) (Auto) 6 % (0-9) Eosinophils (%) (Auto) 1 % (0-3) Basophils (%) (Auto) 0 % (0-3) Neutrophils # (Auto) 4.7 x10^3uL (1.8-7.7) Lymphocytes # (Auto) 1.7 x10^3/uL (1.0-4.8) Monocytes # (Auto) 0.4 x10^3/uL (0.0-1.1) Eosinophils # (Auto) 0.1 x10^3/uL (0.0-0.7) Basophils # (Auto) 0.0 x10^3/uL (0.0-0.2) Sodium Level 142 mmol/L (136-145) Potassium Level 4.2 mmol/L (3.5-5.1) Chloride Level 101 mmol/L (98-107) Carbon Dioxide Level 36 mmol/L (21-32) Anion Gap 5 (6-14) Blood Urea Nitrogen 33 mg/dL (7-20) Creatinine 1.8 mg/dL (0.6-1.0) Estimated GFR (Cockcroft-Gault) 28.7 Glucose Level 150 mg/dL (70-99) Calcium Level 7.7 mg/dL (8.5-10.1) Phosphorus Level 3.8 mg/dL (2.6-4.7) Albumin 2.8 g/dL (3.4-5.0) Test 01/29/19 10:54 01/29/19 16:02 01/29/19 20:28 01/30/19 05:30 Glucose (Fingerstick) 220 mg/dL (70-99) 188 mg/dL (70-99) 307 mg/dL (70-99) White Blood Count 7.9 x10^3/uL (4.0-11.0) Red Blood Count 3.47 x10^6/uL (3.50-5.40) Hemoglobin 9.7 g/dL (12.0-15.5) Hematocrit 30.3 % (36.0-47.0) Mean Corpuscular Volume 87 fL (79-100) Mean Corpuscular Hemoglobin 28 pg (25-35) Mean Corpuscular Hemoglobin Concent 32 g/dL (31-37) Red Cell Distribution Width 14.8 % (11.5-14.5) Platelet Count 122 x10^3/uL (140-400) Neutrophils (%) (Auto) 70 % (31-73) Lymphocytes (%) (Auto) 22 % (24-48) Monocytes (%) (Auto) 6 % (0-9) Eosinophils (%) (Auto) 2 % (0-3) Basophils (%) (Auto) 1 % (0-3) Neutrophils # (Auto) 5.5 x10^3uL (1.8-7.7) Lymphocytes # (Auto) 1.7 x10^3/uL (1.0-4.8) Monocytes # (Auto) 0.5 x10^3/uL (0.0-1.1) Eosinophils # (Auto) 0.1 x10^3/uL (0.0-0.7) Basophils # (Auto) 0.0 x10^3/uL (0.0-0.2) Sodium Level 140 mmol/L (136-145) Potassium Level 4.1 mmol/L (3.5-5.1) Chloride Level 100 mmol/L (98-107) Carbon Dioxide Level 37 mmol/L (21-32) Anion Gap 3 (6-14) Blood Urea Nitrogen 34 mg/dL (7-20) Creatinine 1.8 mg/dL (0.6-1.0) Estimated GFR (Cockcroft-Gault) 28.7 BUN/Creatinine Ratio 19 (6-20) Glucose Level 162 mg/dL (70-99) Calcium Level 8.3 mg/dL (8.5-10.1) Phosphorus Level 4.3 mg/dL (2.6-4.7) Total Bilirubin 0.5 mg/dL (0.2-1.0) Aspartate Amino Transf (AST/SGOT) 12 U/L (15-37) Alanine Aminotransferase (ALT/SGPT) 20 U/L (14-59) Alkaline Phosphatase 71 U/L (46-116) Total Protein 6.1 g/dL (6.4-8.2) Albumin 2.8 g/dL (3.4-5.0) Albumin/Globulin Ratio 0.8 (1.0-1.7) Test 01/30/19 06:54 01/30/19 11:02 Glucose (Fingerstick) 128 mg/dL (70-99) 163 mg/dL (70-99) Laboratory Tests Test 01/29/19 16:02 01/29/19 20:28 01/30/19 05:30 01/30/19 06:54 Glucose (Fingerstick) 188 mg/dL (70-99) 307 mg/dL (70-99) 128 mg/dL (70-99) White Blood Count 7.9 x10^3/uL (4.0-11.0) Red Blood Count 3.47 x10^6/uL (3.50-5.40) Hemoglobin 9.7 g/dL (12.0-15.5) Hematocrit 30.3 % (36.0-47.0) Mean Corpuscular Volume 87 fL (79-100) Mean Corpuscular Hemoglobin 28 pg (25-35) Mean Corpuscular Hemoglobin Concent 32 g/dL (31-37) Red Cell Distribution Width 14.8 % (11.5-14.5) Platelet Count 122 x10^3/uL (140-400) Neutrophils (%) (Auto) 70 % (31-73) Lymphocytes (%) (Auto) 22 % (24-48) Monocytes (%) (Auto) 6 % (0-9) Eosinophils (%) (Auto) 2 % (0-3) Basophils (%) (Auto) 1 % (0-3) Neutrophils # (Auto) 5.5 x10^3uL (1.8-7.7) Lymphocytes # (Auto) 1.7 x10^3/uL (1.0-4.8) Monocytes # (Auto) 0.5 x10^3/uL (0.0-1.1) Eosinophils # (Auto) 0.1 x10^3/uL (0.0-0.7) Basophils # (Auto) 0.0 x10^3/uL (0.0-0.2) Sodium Level 140 mmol/L (136-145) Potassium Level 4.1 mmol/L (3.5-5.1) Chloride Level 100 mmol/L (98-107) Carbon Dioxide Level 37 mmol/L (21-32) Anion Gap 3 (6-14) Blood Urea Nitrogen 34 mg/dL (7-20) Creatinine 1.8 mg/dL (0.6-1.0) Estimated GFR (Cockcroft-Gault) 28.7 BUN/Creatinine Ratio 19 (6-20) Glucose Level 162 mg/dL (70-99) Calcium Level 8.3 mg/dL (8.5-10.1) Phosphorus Level 4.3 mg/dL (2.6-4.7) Total Bilirubin 0.5 mg/dL (0.2-1.0) Aspartate Amino Transf (AST/SGOT) 12 U/L (15-37) Alanine Aminotransferase (ALT/SGPT) 20 U/L (14-59) Alkaline Phosphatase 71 U/L (46-116) Total Protein 6.1 g/dL (6.4-8.2) Albumin 2.8 g/dL (3.4-5.0) Albumin/Globulin Ratio 0.8 (1.0-1.7) Test 01/30/19 11:02 Glucose (Fingerstick) 163 mg/dL (70-99) Medications Active Scripts Medications Dose Route/Sig Max Daily Dose Days Date Category Lidocaine 1 Each Adh..patch 1 Patch TD QHS 30 08/23/18 Rx Senna-Time S Tablet (Sennosides/Docusate Sodium) 1 Each Tablet 1 Tab PO BID 14 08/23/18 Rx Levemir Flextouch (Insulin Detemir) 100 Unit/1 Ml Insuln.pen 18 Units SQ QHS 10/17/15 Rx Novolog Flexpen (Insulin Aspart) 100 Unit/1 Ml Insuln.pen 10 Units SQ TIDAC 10/17/15 Rx Topamax (Topiramate) 25 Mg Tablet 25 Mg PO HS 03/18/15 Rx Wellbutrin Sr (Bupropion Hcl) 150 Mg Tablet.er 1 Tab PO BID 03/11/15 Reported Aspirin 81 Mg Tab.chew 1 Tab PO DAILY 03/11/15 Reported Montelukast Sodium Tablet (Montelukast Sodium) 10 Mg Tablet 10 Mg PO HS 03/11/15 Reported Combivent Respimat Inhal (Ipratropium/Albuterol Sulfate) 4 Gm Aer.w.adap 2 Inh IH QID 11/28/14 Rx Lasix (Furosemide) 40 Mg Tablet 1 Tab PO DAILY 10/25/14 Rx Aldactone (Spironolactone) 25 Mg Tablet 25 Mg PO DAILY 10/25/14 Rx Klor-Con M20 (Potassium Chloride) 20 Meq Tablet.er 40 Meq PO DAILY 10/25/14 Rx Nystop (Nystatin) 1 Omid Omid 1 Omid TP BID PRN 10/25/14 Rx [Aspirin] 325 MG Tablet. 325 Mg PO DAILYWBKFT 10/25/14 Rx Carvedilol (Carvedilol) 6.25 Mg Tablet 6.25 Mg PO BIDWMEALS 10/22/14 Reported Pantoprazole Sodium 40 Mg Tablet. 40 Mg PO DAILY 10/22/14 Reported Comments echo reviewed The left ventricular systolic function is normal. The Ejection Fraction is 55-60%. There is normal LV segmental wall motion. Mild mitral regurgitation. Mild tricuspid regurgitation. The PA pressure was estimated at 45 mmHg. There is no evidence of significant pericardial effusion. Impression . IMPRESSION: 1. Acute on chronic respiratory failure, multifactorial in etiology including acute exacerbation of chronic obstructive pulmonary disease, acute diastolic congestive heart failure, ?acute bronchitis 2. ?Sepsis. 3. Acute exacerbation of chronic obstructive pulmonary disease. 4. Acute diastolic congestive heart failure. 5. Obesity. 6. Excessive daytime sleepiness and snoring, probable obstructive sleep apnea-hypopnea syndrome. 7. Acute kidney injury, chronic kidney disease. 8. Diabetes mellitus. 9. Gastroesophageal reflux disease. 10. Ex-smoker. Plan . 1. Titrate FiO2 to keep O2 saturation 90-91%. 2. Continue bronchodilator. 3. prednisone daily w taper 4. Continue Singulair. 5. Continue antibiotic. 6. Lovenox for DVT prophylaxis. 7. fu Lower extremity venous Doppler. 8. Protonix for stress ulcer prophylaxis. 9. Phys Asst consulted. 10. Echocardiogram reviewed. 12. lose wt, exercise discussed w pt, rn MILAGROS LIMA MD Jan 30, 2019 11:49
[2019-01-30] MEDS: CYCLOBENZAPRINE 10 MG TABLET. PO PRN (12:41)
[2019-01-30 14:42] VITALS: BP 151/56
--- NOTE | 2019-01-30 14:59 | PDOC3 ---
Discharge Summary Date of Admission: Jan 23, 2019 Date of Discharge: Jan 30, 2019 Follow-Up: 1-2 days Admitting Diagnosis comment: discharge dx Assessment/Plan anxiety SEVERE EXAC OF COPD with extreme hypoxia on presentation/ PNEUMONITIS ACUTE SIRS hx co2 retention, JOSELYN Acute on chronic combined hypoxic and hx severe hypercapnic respiratory failure DM2 on insulin Acute renal failure, vasomotor CKD3 HTN morbid obesity, extreme chronic pain syndrome At L5-S1, mild degenerative endplate spurring and diffuse disc bulging is seen extending into the inferior aspect of the left neural foramen. There is moderate to severe narrowing of the left neural foramen. Laminectomy is apparent on the left side she has had 5 back surgeries hyperkalemia, corrected There is degenerative disc disease with disc space narrowing at L3-4, L4-5 and L5-S1. There is no abnormal subluxation in the lower lumbar spine. There is slight retrolisthesis of L2 relative to L3. There is facet arthritis in the lower lumbar spine. CKD stage 3-4 MUKESH very POORLY CONTROLLED HTN bipolar disorder, which complicates her care 01/26 states low back pain is just intolerable will order mri l/s 01/28 less SOA AND PAIN IMPROVING plan: home TODAY with home health if bp stable refuses inpatient rehab gabapentin 100mg po tid buspar 10mg po bid no narcotics due to hypercapnea, SEVERE consult pulm IV ROCEPHIN, VANC in er, d/c vanc due to ckd bipap at night, pt refuses. on NC duoneb, QID insulin to lantus 15u qhs, aspart 5u tid, ssi cough meds dvt ppx PTOT abdominal binder when up consulted dr johnson STEROIDS, taper iv fluid support nephrology consult MRI L/S OUT PT likely not helpful , not a surgical candidate per neurology abg 01/28 D/C IBUPROFEN INC COREG TO 12.5 MG PO BID ADD HYDRALAZINE 50MG PO tid 44 D/C PLANNING min pt exam, d/c planning chart review,> 50% of time with pt exam, chart review, pt care coordination AT HIGH RISK OF PULM ARREST, DUE TO BIPAP NONCOMPLIANCE PER MY CHART REVIEW Vitals Vitals Vital Signs Date Time Temp Pulse Resp B/P (MAP) Pulse Ox O2 Delivery O2 Flow Rate FiO2 4/16/19 10:40 98.0 75 18 154/70 (98) 98 Nasal Cannula 3.0 98.0 Physical Exam General: Alert, Oriented X3, Cooperative, mild distress Heart: Regular rate, Normal S1, Normal S2, No murmurs Lungs: Clear Abdomen: Normal bowel sounds, Soft, Other (very obese) Extremities: No clubbing, No cyanosis Skin: No breakdown, No significant lesion FINAL DIAGNOSIS Problems Medical Problems: (1) Acute and chronic respiratory failure ([id number]) Status: Acute (2) Anxiety Status: Acute (3) Hyperglycemia Status: Acute (4) Renal failure Status: Acute Brief Hospital Course Ms. Tomlinson is a 58 old [sex] who presented with [ ] Discharge Medications Current Medications Albuterol/ Ipratropium (Duoneb) 3 ml 1X ONCE NEB Last administered on at 08:04; Start 01/23/19 at 08:00; Stop 01/23/19 at 08:03; Status DC Methylprednisolone Sodium Succinate (SOLU-Medrol 125MG VIAL) 125 mg 1X ONCE IV Last administered on 01/23/19at 08:25; Start 01/23/19 at 08:00; Stop 01/23/19 at 08:03; Status DC Oxycodone/ Acetaminophen (Percocet 5/325) 1 tab 1X ONCE PO Last administered on 01/23/19at 09:01; Start 01/23/19 at 09:00; Stop 01/23/19 at 09:01; Status DC Ceftriaxone Sodium (Rocephin) 1 gm 1X ONCE IVP Last administered on 01/23/19at 09:00; Start 01/23/19 at 09:00; Stop 01/23/19 at 09:01; Status DC Magnesium Sulfate 50 ml @ 25 mls/hr 1X ONCE IV Last administered on 01/23/19at 15:06; Start 01/23/19 at 09:15; Stop 01/23/19 at 11:14; Status DC Sodium Chloride 1,000 ml @ 1,000 mls/hr 1X ONCE IV Last administered on at 15:07; Start 01/23/19 at 09:15; Stop 01/23/19 at 10:14; Status DC Vancomycin HCl 2 gm/Sodium Chloride 500 ml @ 250 mls/hr 1X ONCE IV Last administered on 01/23/19 09:52; Start 01/23/19 at 09:30; Stop 01/23/19 at 11:29; Status DC Sodium Chloride 1,000 ml @ 150 mls/hr Q6H40M IV Last administered on 06:30; Start 01/23/19 at 09:30; Stop 01/24/19 at 09:29; Status DC Aspirin (Children'S Aspirin) 81 mg DAILY PO Last administered on 01/30/19 09: 02; Start 01/23/19 at 11:00 Bupropion HCl (Wellbutrin Sr) 150 mg BID PO Last administered on 01/30/19 09: 00; Start 01/23/19 at 11:00 Carvedilol (Coreg) 6.25 mg BIDWMEALS PO Last administered on 01/28/19 08:44; Start 01/23/19 at 11:00; Stop 01/28/19 at 13:32; Status DC Furosemide (Lasix) 40 mg DAILY PO Last administered on 01/30/19 09:01; Start 01/23/19 at 11:00 Nystatin (Nystop) 1 omid PRN BID PRN TP Yeast infection; Start 01/23/19 at 09:30 Potassium Chloride (Klor-Con) 40 meq DAILY PO Last administered on 01/24/19 08 :51; Start 01/23/19 at 11:00; Stop 01/25/19 at 14:17; Status DC Senna/Docusate Sodium (Senna Plus) 1 tab BID PO Last administered on 01/30/19 09:00; Start 01/23/19 at 11:00 Insulin Human Lispro (HumaLOG) 10 units TIDWMEALS SQ Last administered on 12:44; Start 01/23/19 at 12:00 Insulin Glargine (Lantus) 18 units QHS SQ Last administered on 01/29/19 20:35 ; Start 01/23/19 at 21:00 Lidocaine (Lidoderm) 1 patch QHS TD ; Start 01/23/19 at 21:00; Stop 01/23/19 at 21 :00; Status DC Montelukast Sodium (Singulair) 10 mg QHS PO Last administered on 01/29/19 20: 22; Start 01/23/19 at 21:00 Spironolactone (Aldactone) 25 mg DAILY PO Last administered on 01/24/19at 08:51 ; Start 01/23/19 at 11:00; Stop 01/25/19 at 14:18; Status DC Topiramate (Topamax) 25 mg QHS PO Last administered on 01/29/19 20:25; Start 01/23/19 at 21:00 Non-Formulary Medication ([Aspirin] ) 325 mg DAILYWBKFT PO ; Start 01/24/19 at 08:00; Status UNV Pantoprazole Sodium (Protonix) 40 mg DAILYAC PO Last administered on 01/30/19 09:02; Start 01/23/19 at 11:00 Non-Formulary Medication (Ipratropium/ Albuterol Sulfate (Combivent Respimat Inhal)) 2 inh QID IH ; Start 01/23/19 at 13:00; Status UNV Albuterol/ Ipratropium (Duoneb) 3 ml RTQID NEB Last administered on 01/30/19at 11:24; Start 01/23/19 at 12:00 Insulin Human Lispro (HumaLOG) 0-5 UNITS TIDWMEALS SQ Last administered on 01/30at 12:44; Start 01/23/19 at 12:00 Dextrose (Dextrose 50%-Water Syringe) 12.5 gm PRN Q15MIN PRN IV SEE COMMENTS; Start 01/23/19 at 10:15 Lidocaine/Sodium Bicarbonate (Buffered Lidocaine 1%) 3 ml STK-MED ONCE .ROUTE ; Start 01/23/19 at 13:44; Stop 01/23/19 at 13:45; Status DC Lidocaine/Sodium Bicarbonate (Buffered Lidocaine 1%) 3 ml 1X ONCE INJ Last administered on 01/23/19 14:01; Start 01/23/19 at 14:00; Stop 01/23/19 at 14:01; Status DC Lidocaine (Lidoderm) 1 patch DAILY TD Last administered on 01/30/19at 09:03; Start 01/23/19 at 18:00 Miscellaneous (Lidoderm Patch Removal) 1 ea QHS MC Last administered on at 21:00; Start 01/23/19 at 21:00 Oxycodone/ Acetaminophen (Percocet 5/325) 1 tab PRN Q6HRS PRN PO PAIN Last administered on 01/28/19 10:10; Start 01/23/19 at 22:45; Stop 01/28/19 at 11:13 ; Status DC Quetiapine Fumarate (SEROquel) 25 mg QHS PO ; Start 01/24/19 at 21:00; Stop 08/04 at 21:00; Status DC Quetiapine Fumarate (SEROquel) 25 mg QHS PO Last administered on 01/29/19at 20: 25; Start 01/23/19 at 23:00 Enoxaparin Sodium (Lovenox 60mg Syringe) 60 mg Q12HR SQ Last administered on at 09:04; Start 01/24/19 at 11:30 Magnesium Sulfate 50 ml @ 25 mls/hr 1X ONCE IV Last administered on 01/24/19at 17:05; Start 01/24/19 at 16:00; Stop 01/24/19 at 17:59; Status DC Ceftriaxone Sodium (Rocephin) 1 gm Q24H IVP Last administered on 01/29/19at 16: 44; Start 01/24/19 at 16:00 Methylprednisolone Sodium Succinate (SOLU-Medrol 40MG VIAL) 80 mg Q8HRS IV Last administered on 01/25/19at 05:04; Start 01/24/19 at 17:00; Stop 01/25/19 at 11:55; Status DC Ibuprofen (Motrin) 600 mg PRN Q8HRS PRN PO INFLAMMATION Last administered on at 03:13; Start 01/24/19 at 23:15; Stop 01/28/19 at 12:06; Status DC Cyclobenzaprine HCl (Flexeril) 10 mg PRN Q12HR PRN PO MUSCLE SPASMS Last administered on 01/30/19at 12:41; Start 01/24/19 at 23:15 Buspirone HCl (Buspar) 10 mg BID PO Last administered on 01/30/19at 09:01; Start 01/25/19 at 11:00 Sodium Polystyrene Sulfonate (Kayexalate) 30 gm 1X ONCE PO Last administered on 01/25/19at 11:19; Start 01/25/19 at 11:00; Stop 01/25/19 at 11:03; Status DC Methylprednisolone Sodium Succinate (SOLU-Medrol 40MG VIAL) 40 mg Q8HRS IV Last administered on 01/26/19 06:23; Start 01/25/19 at 14:00; Stop 01/26/19 at 07:00; Status DC Sodium Polystyrene Sulfonate (Kayexalate) 30 gm 1X ONCE PO ; Start 01/25/19 at 14:30; Stop 01/25/19 at 14:31; Status DC Lactobacillus Rhamnosus (Culturelle) 1 cap BID PO Last administered on 09:01; Start 01/25/19 at 21:00 Hydralazine HCl (Apresoline Inj) 10 mg PRN Q6HRS PRN IVP ELEVATED BP, SEE COMMENTS Last administered on 01/26/19at 12:41; Start 01/25/19 at 17:15; Stop 10/04 at 17:10; Status DC Gabapentin (Neurontin) 100 mg TID@0900,1300,1800 PO Last administered on 09:01; Start 01/25/19 at 18:00 Gabapentin (Neurontin) 200 mg QHS PO Last administered on 01/29/19 20:23; Start 01/25/19 at 21:00 Methylprednisolone Sodium Succinate (SOLU-Medrol 40MG VIAL) 40 mg Q12HR IV Last administered on 01/27/19 09:34; Start 01/26/19 at 21:00; Stop 01/27/19 at 13:24; Status DC Hydralazine HCl (Apresoline Inj) 10 mg PRN Q4HRS PRN IVP ELEVATED BP, SEE COMMENTS Last administered on 01/29/19at 08:39; Start 01/26/19 at 17:15 Guaifenesin (Mucinex) 600 mg BID PO Last administered on 01/30/19 09:02; Start 01/27/19 at 21:00 Prednisone (Prednisone) 40 mg DAILY PO Last administered on 01/29/19 08:37; Start 01/28/19 at 09:00; Stop 01/29/19 at 10:19; Status DC Alteplase, Recombinant (Cathflo For Central Catheter Clearance) 1 mg 1X ONCE INT CAT Last administered on 4/14/19at 08:39; Start 01/28/19 at 07:45; Stop at 07:49; Status DC Oxycodone/ Acetaminophen (Percocet 5/325) 2 tab PRN Q6HRS PRN PO PAIN Last administered on 01/30/19 09:01; Start 01/28/19 at 11:15 Metoprolol Succinate (Toprol Xl) 25 mg 1X ONCE PO ; Start 01/28/19 at 13:30; Stop 01/28/19 at 13:31; Status UNV Carvedilol (Coreg) 12.5 mg BIDWMEALS PO Last administered on 01/30/19 09:02; Start 01/28/19 at 17:00 Clonidine HCl (Catapres Tts-2) 1 patch WEEKLY TD Last administered on at 16:40; Start 01/28/19 at 14:00 Hydralazine HCl (Apresoline) 50 mg TID PO Last administered on 01/30/19 09:02 ; Start 01/29/19 at 10:30 Prednisone (Prednisone) 30 mg DAILY PO Last administered on 01/30/19at 09:00; Start 01/30/19 at 09:00 Active Scripts Active Lidocaine 1 Each Adh..patch 1 Patch TD QHS 30 Days Senna-Time S Tablet (Sennosides/Docusate Sodium) 1 Each Tablet 1 Tab PO BID 14 Days Levemir Flextouch (Insulin Detemir) 100 Unit/1 Ml Insuln.pen 18 Units SQ QHS Novolog Flexpen (Insulin Aspart) 100 Unit/1 Ml Insuln.pen 10 Units SQ TIDAC Topamax (Topiramate) 25 Mg Tablet 25 Mg PO HS Combivent Respimat Inhal (Ipratropium/Albuterol Sulfate) 4 Gm Aer.w.adap 2 Inh IH QID Lasix (Furosemide) 40 Mg Tablet 1 Tab PO DAILY Aldactone (Spironolactone) 25 Mg Tablet 25 Mg PO DAILY Klor-Con M20 (Potassium Chloride) 20 Meq Tablet.er 40 Meq PO DAILY Nystop (Nystatin) 1 Omid Omid 1 Omid TP BID PRN [Aspirin] 325 MG Tablet.dr 325 Mg PO DAILYWBKFT Reported Wellbutrin Sr (Bupropion Hcl) 150 Mg Tablet.er 1 Tab PO BID Aspirin 81 Mg Tab.chew 1 Tab PO DAILY Montelukast Sodium Tablet (Montelukast Sodium) 10 Mg Tablet 10 Mg PO HS Carvedilol (Carvedilol) 6.25 Mg Tablet 6.25 Mg PO BIDWMEALS Pantoprazole Sodium 40 Mg Tablet.dr 40 Mg PO DAILY Vital Signs Vital Signs Date Time Temp Pulse Resp B/P (MAP) Pulse Ox O2 Delivery O2 Flow Rate FiO2 01/30/19 14:42 98.0 75 18 151/56 (87) 98 Nasal Cannula 3.0 98.0 Labs Laboratory Tests Test 01/28/19 16:27 01/28/19 20:12 01/29/19 06:10 01/29/19 07:32 Glucose (Fingerstick) 298 mg/dL (70-99) 270 mg/dL (70-99) 144 mg/dL (70-99) White Blood Count 6.9 x10^3/uL (4.0-11.0) Red Blood Count 3.40 x10^6/uL (3.50-5.40) Hemoglobin 9.6 g/dL (12.0-15.5) Hematocrit 29.7 % (36.0-47.0) Mean Corpuscular Volume 88 fL (79-100) Mean Corpuscular Hemoglobin 28 pg (25-35) Mean Corpuscular Hemoglobin Concent 32 g/dL (31-37) Red Cell Distribution Width 14.7 % (11.5-14.5) Platelet Count 124 x10^3/uL (140-400) Neutrophils (%) (Auto) 68 % (31-73) Lymphocytes (%) (Auto) 25 % (24-48) Monocytes (%) (Auto) 6 % (0-9) Eosinophils (%) (Auto) 1 % (0-3) Basophils (%) (Auto) 0 % (0-3) Neutrophils # (Auto) 4.7 x10^3uL (1.8-7.7) Lymphocytes # (Auto) 1.7 x10^3/uL (1.0-4.8) Monocytes # (Auto) 0.4 x10^3/uL (0.0-1.1) Eosinophils # (Auto) 0.1 x10^3/uL (0.0-0.7) Basophils # (Auto) 0.0 x10^3/uL (0.0-0.2) Sodium Level 142 mmol/L (136-145) Potassium Level 4.2 mmol/L (3.5-5.1) Chloride Level 101 mmol/L (98-107) Carbon Dioxide Level 36 mmol/L (21-32) Anion Gap 5 (6-14) Blood Urea Nitrogen 33 mg/dL (7-20) Creatinine 1.8 mg/dL (0.6-1.0) Estimated GFR (Cockcroft-Gault) 28.7 Glucose Level 150 mg/dL (70-99) Calcium Level 7.7 mg/dL (8.5-10.1) Phosphorus Level 3.8 mg/dL (2.6-4.7) Albumin 2.8 g/dL (3.4-5.0) Test 01/29/19 10:54 01/29/19 16:02 01/29/19 20:28 01/30/19 05:30 Glucose (Fingerstick) 220 mg/dL (70-99) 188 mg/dL (70-99) 307 mg/dL (70-99) White Blood Count 7.9 x10^3/uL (4.0-11.0) Red Blood Count 3.47 x10^6/uL (3.50-5.40) Hemoglobin 9.7 g/dL (12.0-15.5) Hematocrit 30.3 % (36.0-47.0) Mean Corpuscular Volume 87 fL (79-100) Mean Corpuscular Hemoglobin 28 pg (25-35) Mean Corpuscular Hemoglobin Concent 32 g/dL (31-37) Red Cell Distribution Width 14.8 % (11.5-14.5) Platelet Count 122 x10^3/uL (140-400) Neutrophils (%) (Auto) 70 % (31-73) Lymphocytes (%) (Auto) 22 % (24-48) Monocytes (%) (Auto) 6 % (0-9) Eosinophils (%) (Auto) 2 % (0-3) Basophils (%) (Auto) 1 % (0-3) Neutrophils # (Auto) 5.5 x10^3uL (1.8-7.7) Lymphocytes # (Auto) 1.7 x10^3/uL (1.0-4.8) Monocytes # (Auto) 0.5 x10^3/uL (0.0-1.1) Eosinophils # (Auto) 0.1 x10^3/uL (0.0-0.7) Basophils # (Auto) 0.0 x10^3/uL (0.0-0.2) Sodium Level 140 mmol/L (136-145) Potassium Level 4.1 mmol/L (3.5-5.1) Chloride Level 100 mmol/L (98-107) Carbon Dioxide Level 37 mmol/L (21-32) Anion Gap 3 (6-14) Blood Urea Nitrogen 34 mg/dL (7-20) Creatinine 1.8 mg/dL (0.6-1.0) Estimated GFR (Cockcroft-Gault) 28.7 BUN/Creatinine Ratio 19 (6-20) Glucose Level 162 mg/dL (70-99) Calcium Level 8.3 mg/dL (8.5-10.1) Phosphorus Level 4.3 mg/dL (2.6-4.7) Total Bilirubin 0.5 mg/dL (0.2-1.0) Aspartate Amino Transf (AST/SGOT) 12 U/L (15-37) Alanine Aminotransferase (ALT/SGPT) 20 U/L (14-59) Alkaline Phosphatase 71 U/L (46-116) Total Protein 6.1 g/dL (6.4-8.2) Albumin 2.8 g/dL (3.4-5.0) Albumin/Globulin Ratio 0.8 (1.0-1.7) Test 01/30/19 06:54 01/30/19 11:02 Glucose (Fingerstick) 128 mg/dL (70-99) 163 mg/dL (70-99) Laboratory Tests Test 01/29/19 16:02 01/29/19 20:28 01/30/19 05:30 01/30/19 06:54 Glucose (Fingerstick) 188 mg/dL (70-99) 307 mg/dL (70-99) 128 mg/dL (70-99) White Blood Count 7.9 x10^3/uL (4.0-11.0) Red Blood Count 3.47 x10^6/uL (3.50-5.40) Hemoglobin 9.7 g/dL (12.0-15.5) Hematocrit 30.3 % (36.0-47.0) Mean Corpuscular Volume 87 fL (79-100) Mean Corpuscular Hemoglobin 28 pg (25-35) Mean Corpuscular Hemoglobin Concent 32 g/dL (31-37) Red Cell Distribution Width 14.8 % (11.5-14.5) Platelet Count 122 x10^3/uL (140-400) Neutrophils (%) (Auto) 70 % (31-73) Lymphocytes (%) (Auto) 22 % (24-48) Monocytes (%) (Auto) 6 % (0-9) Eosinophils (%) (Auto) 2 % (0-3) Basophils (%) (Auto) 1 % (0-3) Neutrophils # (Auto) 5.5 x10^3uL (1.8-7.7) Lymphocytes # (Auto) 1.7 x10^3/uL (1.0-4.8) Monocytes # (Auto) 0.5 x10^3/uL (0.0-1.1) Eosinophils # (Auto) 0.1 x10^3/uL (0.0-0.7) Basophils # (Auto) 0.0 x10^3/uL (0.0-0.2) Sodium Level 140 mmol/L (136-145) Potassium Level 4.1 mmol/L (3.5-5.1) Chloride Level 100 mmol/L (98-107) Carbon Dioxide Level 37 mmol/L (21-32) Anion Gap 3 (6-14) Blood Urea Nitrogen 34 mg/dL (7-20) Creatinine 1.8 mg/dL (0.6-1.0) Estimated GFR (Cockcroft-Gault) 28.7 BUN/Creatinine Ratio 19 (6-20) Glucose Level 162 mg/dL (70-99) Calcium Level 8.3 mg/dL (8.5-10.1) Phosphorus Level 4.3 mg/dL (2.6-4.7) Total Bilirubin 0.5 mg/dL (0.2-1.0) Aspartate Amino Transf (AST/SGOT) 12 U/L (15-37) Alanine Aminotransferase (ALT/SGPT) 20 U/L (14-59) Alkaline Phosphatase 71 U/L (46-116) Total Protein 6.1 g/dL (6.4-8.2) Albumin 2.8 g/dL (3.4-5.0) Albumin/Globulin Ratio 0.8 (1.0-1.7) Test 01/30/19 11:02 Glucose (Fingerstick) 163 mg/dL (70-99) Allergies Allergies Coded Allergies Type Severity Reaction Last Updated Verified Fish Containing Products Allergy Intermediate Itching 10/15/15 Yes Penicillins Allergy Intermediate 02/04/14 Yes Sulfa (Sulfonamide Antibiotics) Allergy Intermediate 02/04/14 Yes codeine Allergy Intermediate 02/15/16 Yes morphine Allergy Intermediate Hives 02/15/16 Yes Disposition/Orders: D/C to Home w/ HH Patient Instructions d/c planning 44 min ACE ZELAYA MD Jan 30, 2019 14:59
[2019-01-30] MEDS ORDERED: GUAI600T47 PO (15:04)
[2019-01-30] MEDS ORDERED: CLON1PAT2 TD (15:04)
[2019-01-30] MEDS ORDERED: LACT1CAP19 PO (15:04)
[2019-01-30] MEDS ORDERED: HYDR-2869 PO (15:04)
[2019-01-30] MEDS ORDERED: BUSP10TA PO (15:04)
[2019-01-30] MEDS ORDERED: CARV12.511 PO (15:04)
[2019-01-30] MEDS ORDERED: GABA-585 PO ×2 (15:04)
[2019-01-30 15:18] VITALS: BP 151/56
--- NOTE | 2019-01-30 16:39 | SNU/HH DC ---
DISCHARGE WITH HOME HEALTH DISCHARGE INFORMATION: Final Diagnosis: Problems Medical Problems: (1) Acute and chronic respiratory failure ([id number]) Status: Acute (2) Anxiety Status: Acute (3) Hyperglycemia Status: Acute (4) Renal failure Status: Acute Condition on Discharge: Guarded CODE STATUS: Code Status: Full HOME HEALTH: Face to Face: I certify this patient is under my care and that I, or a nurse practitioner or physician's assistant pressman working with me, had a face to face encounter that meets the physician face to face encounter requirements with this patient on []. Medical Complications: COPD, DJD, HTN RN For Eval/Treatment: Yes Physical Therapy For: Evalulation/Treatment Occupational Therapy For: Evaluation/Treatment Speech Language Pathology For: Evaluation/Treatment Home Health Aide For: Self-care LASER ENGINEER For: Community Resources Pt Meets Homebound Status: Unsteady balance w/ amb,, Limited distance walking, Psychological condition POST DISCHARGE ORDERS: Activity Instructions for Disc: Activity as tolerated Weight Bearing Status after Di: No restrictions DIET AFTER DISCHARGE: Cardiac CHECKS AFTER DISCHARGE: Checks after discharge: Check blood press - daily, Check blood sugar, ac/hs TREATMENT/EQUIPMENT ORDERS: Adaptive Equipment Issued: None, Front wheeled walker Discharge Respiratory Equipmen: Oxygen CERTIFICATION STATEMENT: Certification Statement: Certification Statement: Based on the above finding, I certify that this patient is confined to the home and needs intermittent half-way care, physical therapy and/or speech therapy, or continues to need occupational therapy.~ This patient is under my care, and I have initiated the establishment of the plan of care.~ This patient will be followed by myself or a community physician who will periodically review the plan of care. Home Meds Active Scripts Lactobacillus Rhamnosus Gg (CULTURELLE) 1 Each Cap.sprink, 1 CAP PO BID for supplement for 30 Days, #60 CAP Prov:ACE ZELAYA MD 01/30/19 Guaifenesin (MUCINEX) 600 Mg Tablet.er, 600 MG PO BID for cough for 30 Days, # 60 TAB.SR Prov:ACE ZELAYA MD 01/30/19 Buspirone Hcl (BUSPIRONE HCL) 10 Mg Tablet, 10 MG PO BID for anxiety for 30 Days , #60 TAB Prov:ACE ZELAYA MD 01/30/19 Gabapentin (GABAPENTIN ) 100 Mg Capsule, 100 MG PO TID@0900,1300,1800 for pain for 30 Days, #100 CAP Prov:ACE ZELAYA MD 01/30/19 Gabapentin (GABAPENTIN ) 100 Mg Capsule, 200 MG PO QHS for pain for 30 Days, # 60 CAP Prov:ACE ZELAYA MD 01/30/19 Carvedilol (CARVEDILOL ) 12.5 Mg Tablet, 12.5 MG PO BIDWMEALS for bp for 30 Days, #60 TAB Prov:ACE ZELAAY MD 01/30/19 Hydralazine Hcl (HYDRALAZINE HCL) 50 Mg Tablet, 50 MG PO TID for blood pressure for 30 Days, #90 TAB Prov:ACE ZELAYA MD 01/30/19 Clonidine (CLONIDINE TTS-2) 1 Each Patch.tdwk, 1 PATCH TD WEEKLY for blood pressure for 14 Days, #14 PATCH Prov:ACE ZELAYA MD 01/30/19 Lidocaine (Lidocaine) 1 Each Adh..patch, 1 PATCH TD QHS for back pain for 30 Days, #30 PATCH Prov:ACE ZELAYA MD 08/23/18 Sennosides/Docusate Sodium (SENNA-TIME S TABLET) 1 Each Tablet, 1 TAB PO BID for constipation for 14 Days, #28 TAB Prov:ACE ZELAYA MD 08/23/18 Insulin Detemir (Levemir Flextouch) 100 Unit/1 Ml Insuln.pen, 18 UNITS SQ QHS, # 3 SYR 5 Refills Prov:JENNA WEINSTEIN MD 10/17/15 Insulin Aspart (NOVOLOG FLEXPEN) 100 Unit/1 Ml Insuln.pen, 10 UNITS SQ TIDAC, # 3 SYR 5 Refills Prov:JENNA WEINSTEIN MD 10/17/15 Topiramate (TOPAMAX) 25 Mg Tablet, 25 MG PO HS, #30 BOTTLE Prov:RAMILA HERNANDEZ MD 03/18/15 Ipratropium/Albuterol Sulfate (COMBIVENT RESPIMAT INHAL) 4 Gm Aer.w.adap, 2 INH IH QID, #2 INHALER 5 Refills Prov:JENNA WEINSTEIN MD 11/28/14 Furosemide (LASIX) 40 Mg Tablet, 1 TAB PO DAILY, #90 TAB 2 Refills Prov:JENNA WEINSTEIN MD 10/25/14 Potassium Chloride (KLOR-CON M20) 20 Meq Tablet.er, 40 MEQ PO DAILY, #30 TAB 1 Refill Prov:JENNA WEINSTEIN MD 10/25/14 Nystatin (NYSTOP) 1 Omid Omid, 1 OMID TP BID PRN for Yeast infection, #1 PACKET 1 Refill Prov:JENNA WEINSTEIN MD 10/25/14 [Aspirin] 325 MG TABLET. No Conflict Check, 325 MG PO DAILYWBKFT, #30 TAB 3 Refills Prov:JENNA WEINSTEIN MD 10/25/14 Reported Medications Bupropion Hcl (WELLBUTRIN SR) 150 Mg Tablet.er, 1 TAB PO BID, #60 TAB 5 Refills 03/11/15 Aspirin (ASPIRIN) 81 Mg Tab.chew, 1 TAB PO DAILY, #30 TAB 3 Refills 03/11/15 Montelukast Sodium (MONTELUKAST SODIUM TABLET) 10 Mg Tablet, 10 MG PO HS for FOR ASTHMA, #30 TAB 0 Refills 03/11/15 Pantoprazole Sodium (PANTOPRAZOLE SODIUM) 40 Mg Tablet.dr, 40 MG PO DAILY, TAB 10/22/14 Discontinued Reported Medications Carvedilol (CARVEDILOL ) 6.25 Mg Tablet, 6.25 MG PO BIDWMEALS, TAB 10/22/14 Discontinued Scripts Spironolactone (ALDACTONE) 25 Mg Tablet, 25 MG PO DAILY, #30 TAB 2 Refills Prov:JENNA WEINSTEIN MD 10/25/14 ACE ZELAYA MD Jan 30, 2019 16:39
[2019-02-20] MEDS ORDERED: PROAIR RESPICL90 MCG IH (17:31)
[2019-02-20] MEDS ORDERED: ARFO15VI NEB (17:32)
[2019-02-20] MEDS ORDERED: FLUT1BLS3 IH (17:36)
[2019-02-20] MEDS ORDERED: ROFL500T7 PO (17:38)
[2019-02-20] MEDS ORDERED: DULO60CA6 PO (17:39)
[2019-02-20] MEDS ORDERED: FLECTOR1 EACH TP (17:39)
[2019-02-20] MEDS ORDERED: FURO80TA3 PO (17:40)
[2019-02-20] MEDS ORDERED: GABA300C18 PO (17:41)
[2019-02-20] MEDS ORDERED: INSU100I7 SQ (17:42)
[2019-02-20] MEDS ORDERED: NALT50TA PO (17:43)
[2019-02-20] MEDS ORDERED: QUET300T7 PO (17:45)
[2019-02-20] MEDS ORDERED: DULA1.5P SQ (17:45)
[2019-02-20] MEDS ORDERED: META-21 PO (17:46)
== END 2019-01-30 16:45 | disposition home health service (06) | DRG 682 ==
LOC: ER 07:41 → 6 SOUTH 08:53
PROVIDERS: ADMIT Family Medicine; ATTEND Family Medicine
PROC: 02HV33Z Insertion of Infusion Device into Superior Vena Cava, Percutaneous Approach (ICD-10-PCS; principal; 2019-01-24)
PROC: B5181ZA Fluoroscopy of Superior Vena Cava using Low Osmolar Contrast, Guidance (ICD-10-PCS; 2019-01-24)
PROC: B548ZZA Ultrasonography of Superior Vena Cava, Guidance (ICD-10-PCS; 2019-01-24)
DX: N17.0 Acute kidney failure with tubular necrosis (principal); J96.21 Acute and chronic respiratory failure with hypoxia; I50.31 Acute diastolic (congestive) heart failure; J18.9 Pneumonia, unspecified organism; I13.0 Hypertensive heart and chronic kidney disease with heart failure and stage 1 through stage 4 chronic kidney disease, or unspecified chronic kidney disease; J44.1 Chronic obstructive pulmonary disease with (acute) exacerbation; J44.0 Chronic obstructive pulmonary disease with (acute) lower respiratory infection; R65.10 Systemic inflammatory response syndrome (SIRS) of non-infectious origin without acute organ dysfunction; N18.4 Chronic kidney disease, stage 4 (severe); E87.5 Hyperkalemia; E11.22 Type 2 diabetes mellitus with diabetic chronic kidney disease; E11.42 Type 2 diabetes mellitus with diabetic polyneuropathy; E11.65 Type 2 diabetes mellitus with hyperglycemia; E66.01 Morbid (severe) obesity due to excess calories; F31.9 Bipolar disorder, unspecified; F41.0 Panic disorder [episodic paroxysmal anxiety]; F41.1 Generalized anxiety disorder; G25.0 Essential tremor; G47.33 Obstructive sleep apnea (adult) (pediatric); G89.4 Chronic pain syndrome; I95.1 Orthostatic hypotension; J20.9 Acute bronchitis, unspecified; M41.9 Scoliosis, unspecified; K21.9 Gastro-esophageal reflux disease without esophagitis; M19.90 Unspecified osteoarthritis, unspecified site; M46.90 Unspecified inflammatory spondylopathy, site unspecified; M47.816 Spondylosis without myelopathy or radiculopathy, lumbar region; M51.37 Other intervertebral disc degeneration, lumbosacral region; M48.061 Spinal stenosis, lumbar region without neurogenic claudication; M79.7 Fibromyalgia; Z53.20 Procedure and treatment not carried out because of patient's decision for unspecified reasons; Z82.49 Family history of ischemic heart disease and other diseases of the circulatory system; Z79.4 Long term (current) use of insulin; Z83.3 Family history of diabetes mellitus; Z87.891 Personal history of nicotine dependence; Z90.710 Acquired absence of both cervix and uterus; Z99.81 Dependence on supplemental oxygen; Z88.2 Allergy status to sulfonamides; Z88.0 Allergy status to penicillin; Z91.013 Allergy to seafood
CPT/HCPCS: 36415; 36569; 36600; 71045; 72110; 76937; 77001; 80053; 80069; 81001; 82550; 82805; 82962; 83605; 83735; 83880; 84100; 84132; 84484; 85025; 87040; 93005; 93306; 93970; 94640; 94760; 96374; 96375; C1751; C1769; C1892; J0360; J0696; J1650; J1815; J2920; J2930; J3370; J3475; J7030; J7040; J7512; J7620; 97110; 97116; 97530; 97535; 99285-25

== ENCOUNTER → 2019-02-21 | Day surgery (SDC) | payer OTHER ==
[~2019-02-21] VITALS: Ht 167.6 cm; Wt 137.4 kg
[~2019-02-21] MED LIST changes: +ARFO15VI NEB; +BUPIVAC MPF-EPI 0.5%-1:200000 30 ML VIAL. ONE; +BUSP10TA PO; +CARV12.511 PO; +CHLORHEXIDINE 0.12% 15 ML MOUTHWASH. SWSP ONE; +CLINDAMYCIN 900MG PREMIX 50 ML IV PRN; +CLON1PAT2 TD; +DESFLURANE 61 TO 120 MINUTES IH ONE; +DEXAMETHASONE SOD PHOS 4 MG/ML VIAL ONE; +DULA1.5P SQ; +DULO60CA6 PO; +FLECTOR1 EACH TP; +FLUT1BLS3 IH; +FURO80TA3 PO; +GABA-585 PO; +GABA300C18 PO; +GELATIN SPONGE SIZE 100. ONE; +GLYCOPYRROLATE 1 MG/5 ML VIAL. ONE; +GUAI600T47 PO; +HYDR-2761 PO; +HYDR-2869 PO; +HYDROmorphone 2 MG/ML VIAL IV PRN; +INSU100I7 SQ; +IPRATRPIUM/ALBUTEROL 0.5/2.5MG 3 ML NEBU. NEB ONE; +IV RINGERS,LACTATED 1000ML 1,000 ML IV SCH; +LACT1CAP19 PO; +LIDOCAINE 1% PF 2 ML VIAL. ID PRN; +LIDOCAINE 2% PF 5 ML VIAL. ONE; +META-21 PO; +NALT50TA PO; +NEOSTIGMINE METHYLSULFATE 5 MG/5 ML SYRINGE. ONE; +ONDANSETRON PF 4 MG/2 ML VIAL. IV PRN; +ONDANSETRON PF 4 MG/2 ML VIAL. ONE; +PHENYLEPHRINE in 0.9% NACL PF 1 MG/10 ML SYRINGE. IV ONE; +PROAIR RESPICL90 MCG IH; +PROCHLORPERAZINE 10 MG/2 ML VIAL. IV PRN; +PROPOFOL 20 ML IV ONE; +QUET300T7 PO; +ROCURONIUM 50 MG/5 ML VIAL. ONE; +ROFL500T7 PO; +fentaNYL PF VIAL 100 MCG/2 ML VIAL IV PRN; +fentaNYL PF VIAL 100 MCG/2 ML VIAL ONE
--- NOTE | 2019-02-21 10:03 | NUR ---
PT HERE FOR TEETH REMOVAL WITH DR DAVIS. PT REQUESTED TO HAVE OR STAFF KEEP HER GOLD TOOTH SO SHE CAN TAKE IT HOME. DR DAVIS APPROVED AND OR STAFF NOTIFIED. VOICED UNDERSTANDING
--- NOTE | 2019-02-21 11:45 | PDOC4 ---
OPERATIVE NOTE Date: Date: February 21, 2019 Pre-Op Diagnosis: carious, non restorable 4,6,7,8,9,10,14,22,23,31 Post-Op Diagnosis: same Procedure Performed: surgical removal of carious, non restorable 4,6,7,8,9,10,14,22,23,31 upper right and upper left alveoloplasty Surgeon: anna Anesthesia Type: b Blood Loss: 10ml Specimans Obtained: teeth disposed of in OR Findings: see dictation Complications: none Operative Note: see dictation carious, non restorable 4,6,7,8,9,10,14,22,23,31 ANA DAVIS DMD February 21, 2019 11:45
[2019-02-21 12:30] VITALS: BP 116/60
--- NOTE | 2019-02-21 13:51 | OP ---
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 ATTENDING PHYSICIAN: Jamal Davis DMD PREOPERATIVE DIAGNOSIS: Caries, nonrestorable dentition, numbers 4, 6, 7, 8, 9, 10, 14, 22, 23 31. POSTOPERATIVE DIAGNOSIS: Caries, nonrestorable teeth, numbers 4, 6, 7, 8, 9, 10, 14, 22, 23 31. PROCEDURES PERFORMED: Extraction of #4, 6, 7, 8, 9, 10, 14, 22, 23 31, alveoloplasty upper right, upper left and surgical removal of those teeth. BRIEF HISTORY: The patient is a 58-year-old female with multiple nonrestorable dentition, teeth and need for surgical removal of these teeth. She has a significant past medical history with significant COPD, hypertension and morbid obesity. After history and physical and evaluation was performed in my clinic, we discussed her and considered her case more considering for later the need for the setting of care, it should be escalated to the operating suite. The patient was affable with our plan. Consent was obtained. SPECIMEN SENT: None. ESTIMATED BLOOD LOSS: Approximately 10 mL. DRAINS PLACED: None. COMPLICATIONS: None noted at the time of surgery. DESCRIPTION OF PROCEDURE: After the history and physical was updated in the preoperative holding area, the patient was transported by the Operating Service today in the operating suite, placed in the supine position. General anesthesia was induced. The patient was then intubated without complications. Tube was secured to the upper left side of the face. Treatment began with an upper right quadrant and lower right quadrants with a 15 blade. A full thickness mucoperiosteal flap was reflected buccally. The teeth were luxated, elevated and extracted with hand instruments without complication. Alveoloplasty was performed with rongeur, bone file and curettage and copious normal sterile saline to irrigate and all bony undercuts were removed. The sites were then packed with independent pieces of Gelfoam and oversewn with 3-0 chromic gut suture in a running locked fashion. The bite block was then changed to the right side and the procedure was continued and teeth #14, 22, 23 were then addressed. A #15 blade was utilized to create a full thickness mucoperiosteal flap, which was reflected buccally. These teeth were luxated, elevated and extracted with forceps and alveoloplasty was performed with a rongeur, bone file, curettage and copious normal sterile saline. These sites were also packed with Gelfoam and oversewn with a 3-0 chromic gut suture in a running locked fashion. These sites were found to be hemostatic. The local anesthesia in the form of 0.5% Marcaine, 1:200,000 epinephrine was administered throughout the procedure, approximately 23 mL at the beginning of the procedure and the remaining 7 mL at the culmination of the procedure to assist in the patient's comfort. The patient was then lavaged and suctioned. The moistened throat pack was removed. The throat pack was placed prior to the beginning of the procedure and Peridex was placed into the mouth and the teeth were cleansed. After the removal of the throat pack, an OG was passed and the stomach was decompressed. The patient was then awakened and extubated without complication and transported to the PACU in stable condition. JAMAL DAVIS DMD DR: Daya JOB#: [id number] / [id number]
== END | disposition home or self-care (01) ==
LOC: SURG 07:46
PROVIDERS: ATTEND Dentist Oral and Maxillofacial Surgery
DX: K02.9 Dental caries, unspecified (principal); K00.7 Teething syndrome; I10 Essential (primary) hypertension; J44.9 Chronic obstructive pulmonary disease, unspecified; E66.01 Morbid (severe) obesity due to excess calories; Z88.0 Allergy status to penicillin; Z88.2 Allergy status to sulfonamides; Z88.5 Allergy status to narcotic agent; Z91.013 Allergy to seafood; E11.9 Type 2 diabetes mellitus without complications; G47.33 Obstructive sleep apnea (adult) (pediatric); F41.9 Anxiety disorder, unspecified; F32.9 Major depressive disorder, single episode, unspecified; Z79.899 Other long term (current) drug therapy; Z98.890 Other specified postprocedural states; Z79.84 Long term (current) use of oral hypoglycemic drugs; Z68.42 Body mass index [BMI] 45.0-49.9, adult
CPT/HCPCS: 41874; 41899; 82962; A7015; J1100; J2001; J2370; J2405; J2704; J2710; J3010; J3490; J7620

== ENCOUNTER 2019-02-23 02:45 | Emergency (ER) | payer OTHER ==
[~2019-02-23] VITALS: Ht 167.6 cm; Wt 136.1 kg
[~2019-02-23 02:45] MED LIST changes: -BUPIVAC MPF-EPI 0.5%-1:200000 30 ML VIAL. ONE; -CHLORHEXIDINE 0.12% 15 ML MOUTHWASH. SWSP ONE; -CLINDAMYCIN 900MG PREMIX 50 ML IV PRN; -DESFLURANE 61 TO 120 MINUTES IH ONE; -DEXAMETHASONE SOD PHOS 4 MG/ML VIAL ONE; -GELATIN SPONGE SIZE 100. ONE; -GLYCOPYRROLATE 1 MG/5 ML VIAL. ONE; -HYDR-2761 PO; -HYDROmorphone 2 MG/ML VIAL IV PRN; -IPRATRPIUM/ALBUTEROL 0.5/2.5MG 3 ML NEBU. NEB ONE; -IV RINGERS,LACTATED 1000ML 1,000 ML IV SCH; -LIDOCAINE 1% PF 2 ML VIAL. ID PRN; -LIDOCAINE 2% PF 5 ML VIAL. ONE; -NEOSTIGMINE METHYLSULFATE 5 MG/5 ML SYRINGE. ONE; -ONDANSETRON PF 4 MG/2 ML VIAL. IV PRN; -ONDANSETRON PF 4 MG/2 ML VIAL. ONE; -PHENYLEPHRINE in 0.9% NACL PF 1 MG/10 ML SYRINGE. IV ONE; -PROCHLORPERAZINE 10 MG/2 ML VIAL. IV PRN; -PROPOFOL 20 ML IV ONE; -ROCURONIUM 50 MG/5 ML VIAL. ONE; -fentaNYL PF VIAL 100 MCG/2 ML VIAL IV PRN; -fentaNYL PF VIAL 100 MCG/2 ML VIAL ONE
--- NOTE | 2019-02-23 03:50 | PHYS DOC ---
Past Medical History Past Medical History: COPD, Depression, Diabetes-Type II, Hypertension Additional Past Medical Histor: CHRONIC BACK PAIN,spinal stenosis,edema, morbid obesity, narcotic abuse Past Surgical History: Other Additional Past Surgical Histo: Back surgery Smoking: Quit Greater Than 1 Year Alcohol Use: None Drug Use: None Adult General Chief Complaint Chief Complaint: MECHANICAL FALL HPI HPI Patient is a 58 year old female who presents with right knee and ankle pain following two mechanical falls tonight. On both occasions, the patient was walking to the restroom when her right knee caught, became painful, and buckled causing her to drop to the floor. On the second event, she states that she felt a "crunch" in her right ankle after having it invert during the fall which prompted her to call EMS. She does have a history of osteoarthritis of the right knee and states that her knee has caught like this in the past as well. Currently, she rates her pain at 10/10 worst in her right ankle localized to the lateral malleolus. The pain is sharp and made worse with movement. She takes a daily aspirin and no other blood thinners. Patient denies any loss of consciousness, trauma to the neck or head, dizziness or presyncope. Review of Systems Review of Systems Constitutional: Denies fever or chills [] HENT: Denies nasal congestion or sore throat [] Respiratory: Denies cough or shortness of breath [] Cardiovascular: Denies chest pain, palpitations, lightheadedness [] GI: Denies abdominal pain, nausea, vomiting, diarrhea [] : Denies dysuria or hematuria [] Musculoskeletal: Reports right knee pain and right ankle pain [] Integument: Reports bruising over right knee [] Neurologic: Denies dizziness, focal weakness or sensory changes [] Complete review of systems found to be within normal limits, except as documented in this note. Current Medications Current Medications Current Medications Medications (Trade) Dose Ordered Sig/Sunny Start Time Stop Time Status Last Admin Dose Admin Fentanyl Citrate (Fentanyl 2ml Vial) 50 mcg 1X ONCE 02/23/19 04:00 02/23/19 04:01 DC 02/23/19 03:39 50 MCG Allergies Allergies Allergies Coded Allergies Type Severity Reaction Last Updated Verified Fish Containing Products Allergy Intermediate Itching 02/21/19 Yes Penicillins Allergy Intermediate 02/21/19 Yes Sulfa (Sulfonamide Antibiotics) Allergy Intermediate 02/21/19 Yes codeine Allergy Intermediate 02/21/19 Yes morphine Allergy Intermediate Hives 02/21/19 Yes Physical Exam Physical Exam Constitutional: Morbidly obese female in obvious pain but no acute distress. [] HENT: Normocephalic, atraumatic. [] Eyes: EOMI, conjunctiva normal, no discharge. [] Neck: Supple, nontender, normal range of motion. [] Cardiovascular: Heart rate regular rhythm, no murmur [] Lungs & Thorax: Bilateral breath sounds clear to auscultation [] Abdomen: Soft and nontender. [] Skin: Small 2 cm ecchymosis overlying right knee. No erythema or swelling. [] Extremities: Painful but full range of motion in right knee. Right ankle without ecchymosis or joint laxity. Dorsal aspect of right foot exquisitely tender to palpation at metatarsal bases. [] Neurologic: Alert and oriented, no focal deficits noted. [] Psychologic: Affect normal, judgement normal, mood normal. [] Current Patient Data Vital Signs Vital Signs Date Time Temp Pulse Resp B/P (MAP) Pulse Ox O2 Delivery O2 Flow Rate FiO2 02/23/19 04:19 86 18 98 02/23/19 03:39 Nasal Cannula 3.0 02/23/19 02:50 98.7 119/58 (78) 98.7 EKG EKG [] Radiology/Procedures Radiology/Procedures Procedure: Right Foot 3 View, Right Ankle 3 View, Right Knee 2 View: Nondisplaced fracture of 2nd metatarsal base. No evidence of acute osseous deformity or fracture of knee or ankle. Preliminary report by ED Physician. [] Course & Med Decision Making Course & Med Decision Making Pertinent Imaging studies reviewed. (See chart for details) Patient is a 58 year old female who presents with knee, ankle and foot pain following two mechanical falls this evening. She states she inverted her right foot on the second fall and felt a crunch. X-ray of foot shows fracture at the base of the 2nd metatarsal on the right. No evidence of osseous abnormality noted in ankle or knee. Pain was addressed with interval improvement. Knee was TED wrapped, foot was splinted with post-op shoe. Patient was instructed to use her walker at home, elevate the extremity and apply cold compresses. Will provide Rx for pain medication upon discharge to home. Patient instructed to follow up with orthopedic surgeon. Patient stable for discharge with outpatient follow-up with PCP. Discussed findings and plan with patient, who acknowledge understanding and agreement. [] Dragon Disclaimer Dragon Disclaimer This electronic medical record was generated, in whole or in part, using a voice recognition dictation system. Splinting Splinting #1: Location: R knee Pre-Made Type: TED bandage Pre-Proc Neuro Vasc Exam: normal Post-Proc Neuro Vasc Exam: normal, unchanged from pre-exam Splinting #2: Location: R foot Pre-Made Type: Post op shoe Pre-Proc Neuro Vasc Exam: normal Post-Proc Neuro Vasc Exam: normal, unchanged from pre-exam Departure Departure Impression: Primary Impression: Fracture of 2nd metatarsal Disposition: HOME, SELF-CARE Condition: STABLE Referrals: DAVE LUCIO MD (PCP) MARI ORELLANA II, MD Patient Instructions: Foot Fracture-Brief, Walker Use Scripts Hydrocodone Bit/Acetaminophen (HYDROCODONE-APAP 5-325 ) 1 Tab Tablet 1 TAB PO PRN Q6HRS PRN for PAIN, #10 TAB 0 Refills Take 1/2 tablet Q6HRS PRN Pain Prov: ANIBAL LINO DO 02/23/19 Problem Qualifiers Primary Impression: Fracture of 2nd metatarsal Encounter type: initial encounter Fracture type: closed Fracture alignment: nondisplaced Laterality: right Qualified Codes: S92.324A - Nondisplaced fracture of second metatarsal bone, right foot, initial encounter for closed fracture ANIBAL LINO DO February 23, 2019 03:50
[2019-02-23] MEDS ORDERED: HYDR-2761 PO (03:55)
[2019-02-23] MEDS ORDERED: fentaNYL PF VIAL 100 MCG/2 ML VIAL IM ONE (04:00)
[2019-02-23 04:19] VITALS: BP 102/51
--- NOTE | 2019-02-23 08:17 | RAD ---
Right knee, 2 views, 02/23/2019: HISTORY: Fall No fracture or dislocation is identified. There is minimal degenerative change at the patellofemoral articulation. Moderate subcutaneous edema is present. IMPRESSION: No acute bony abnormality is detected. Electronically signed by: Jarrett Mora MD (02/23/2019 8:14 AM) [facility]
--- NOTE | 2019-02-23 08:24 | RAD ---
Right ankle, 3 views, 02/23/2019: HISTORY: Fall No ankle fracture or dislocation is identified. There is moderate diffuse soft tissue swelling. IMPRESSION: No acute bony abnormality is detected. Right foot, 3 views, 02/23/2019: There is a fracture of the proximal end of the second metatarsal with involvement of its proximal articular surface.There is very little displacement at that fracture site. No other definite fracture or dislocation is identified. There is diffuse soft tissue swelling. IMPRESSION: Acute fracture of the proximal end of the second metatarsal. Note: The findings were discussed with personnel in the [facility] ER at 8:20 AM on 02/23/2019 Electronically signed by: Jarrett Mora MD (02/23/2019 8:21 AM) [facility]
--- NOTE | 2019-02-23 08:24 | RAD ---
Right ankle, 3 views, 02/23/2019: HISTORY: Fall No ankle fracture or dislocation is identified. There is moderate diffuse soft tissue swelling. IMPRESSION: No acute bony abnormality is detected. Right foot, 3 views, 02/23/2019: There is a fracture of the proximal end of the second metatarsal with involvement of its proximal articular surface.There is very little displacement at that fracture site. No other definite fracture or dislocation is identified. There is diffuse soft tissue swelling. IMPRESSION: Acute fracture of the proximal end of the second metatarsal. Note: The findings were discussed with personnel in the [facility] ER at 8:20 AM on 02/23/2019 Electronically signed by: Jarrett Mora MD (02/23/2019 8:21 AM) [facility]
== END 2019-02-23 04:30 | disposition home or self-care (01) ==
LOC: ER 02:45
DX: S92.324A Nondisplaced fracture of second metatarsal bone, right foot, initial encounter for closed fracture (principal); J44.9 Chronic obstructive pulmonary disease, unspecified; M25.561 Pain in right knee; E11.9 Type 2 diabetes mellitus without complications; I10 Essential (primary) hypertension; M17.11 Unilateral primary osteoarthritis, right knee; G89.29 Other chronic pain; Z98.890 Other specified postprocedural states; Z87.891 Personal history of nicotine dependence; Z88.0 Allergy status to penicillin; Z88.2 Allergy status to sulfonamides; Z88.5 Allergy status to narcotic agent; Z88.6 Allergy status to analgesic agent; Z91.013 Allergy to seafood; W18.39XA Other fall on same level, initial encounter; Y93.01 Activity, walking, marching and hiking; Y92.89 Other specified places as the place of occurrence of the external cause; Y99.8 Other external cause status
CPT/HCPCS: 73560; 73610; 73630; 96372; 99284; J3010

== ENCOUNTER 2019-03-29 03:59 | Emergency (ER) | payer OTHER ==
[~2019-03-29] VITALS: Ht 162.6 cm; Wt 136.1 kg
[~2019-03-29 03:59] MED LIST changes: +HYDR-2761 PO; +LIDO700A21 TD; -LIDO700A39 TD; +MONT10TA49 PO; -MONT10TA9 PO
[2019-03-29] MEDS ORDERED: oxyCODONE/APAP 5/325 1 TAB TABLET PO ONE (04:30)
[2019-03-29] MEDS ORDERED: ONDANSETRON ODT 4 MG TAB.RAPDIS. PO ONE (04:30)
[2019-03-29 05:06] VITALS: BP 114/61
--- NOTE | 2019-03-29 05:22 | RAD ---
Pelvis and right hip 2 views: Reason for examination: Trauma. No acute fractures seen. The bone density is normal. There are some degenerative changes in the lower lumbar spine. Proximal femur are intact. No abnormality seen at the sacroiliac joints are hip joints. 2 views of the right hip show no evidence of fracture or dislocation. The bone density is normal. Joint space is maintained. IMPRESSION: No acute bony abnormality at the pelvis or right hip. Right knee 3 views: No acute fracture or dislocation is seen. The bone density is normal. No abnormal periosteal reaction is seen. Joint spaces are maintained. There are some mild degenerative changes. No joint effusion is present. IMPRESSION: Mild degenerative changes but no acute abnormality evident at the right knee. Right foot 3 views: There appears to be a fracture at the base of the second metatarsal bone with mild displacement. No other site of fracture or dislocation is seen. Joint spaces are maintained. No abnormal periosteal reaction is seen. There is some soft tissue swelling over the dorsum of the foot. IMPRESSION: Fracture at the base of the second metatarsal bone with mild displacement. No other focal bony abnormalities in the right foot. Soft tissue swelling over the dorsum of the foot. Electronically signed by: Hayley Anaya MD (03/29/2019 5:19 AM) [facility]
--- NOTE | 2019-03-29 05:36 | PHYS DOC ---
Past Medical History Past Medical History: COPD, Depression, Diabetes-Type II, Hypertension Additional Past Medical Histor: CHRONIC BACK PAIN,spinal stenosis,edema, morbid obesity, narcotic abuse Past Surgical History: Other Additional Past Surgical Histo: Back surgery Alcohol Use: None Drug Use: None Adult General Chief Complaint Chief Complaint: MECHANICAL FALL HPI HPI Patient is a 58 year old female brought in by embolus after mechanical fall. Apparently she was walking she has a broken foot she felt pain in the right foot her knee buckled and gave out she landed on her right leg and sciatic pain was exacerbated by that so she called 911 for evaluation. She is a chronic pain patient she has a pain management appointment at in 2 days. She was seen here 3 weeks ago due to a metatarsal fracture she has not been wearing her orthopedics shoe she has not gotten orthopedics follow-up she tells me she's been having some complicated dental procedures that have precluded her from taking any other appointments at this time. Patient is currently slightly better at rest mostly at the dorsum of the foot. Review of Systems Review of Systems Constitutional: Denies fever or chills [] Eyes: Denies change in visual acuity, redness, or eye pain [] HENT: Denies nasal congestion or sore throat [] GI: Denies abdominal pain, nausea, vomiting, bloody stools or diarrhea [] : Denies dysuria or hematuria [] Musculoskeletal: Neurologic: Denies headache, focal weakness or sensory changes [] Endocrine: Denies polyuria or polydipsia [] All other systems were reviewed and found to be within normal limits, except as documented in this note. Current Medications Current Medications Current Medications Medications (Trade) Dose Ordered Sig/Sunny Start Time Stop Time Status Last Admin Dose Admin Ondansetron HCl (Zofran Odt) 4 mg 1X ONCE 03/29/19 04:30 03/29/19 04:31 DC 03/29/19 04:43 4 MG Oxycodone/ Acetaminophen (Percocet 5/325) 2 tab 1X ONCE 03/29/19 04:30 03/29/19 04:31 DC 03/29/19 04:43 2 TAB Allergies Allergies Allergies Coded Allergies Type Severity Reaction Last Updated Verified Fish Containing Products Allergy Intermediate Itching 02/21/19 Yes Penicillins Allergy Intermediate 02/21/19 Yes Sulfa (Sulfonamide Antibiotics) Allergy Intermediate 02/21/19 Yes codeine Allergy Intermediate 02/21/19 Yes morphine Allergy Intermediate Hives 02/21/19 Yes Physical Exam Physical Exam Constitutional: Well developed, well nourished, no acute distress, non-toxic appearance. [] HENT: Normocephalic, atraumatic, bilateral external ears normal, oropharynx moist, no oral exudates, nose normal. [] Eyes: PERRLA, EOMI, conjunctiva normal, no discharge. [] Neck: Normal range of motion, no tenderness, supple, no stridor. [] Pulmonary: Normal respiratory effort no increased work of breathing no obvious chest wall trauma Abdomen: Bowel sounds normal, soft, no tenderness, no masses, no pulsatile masses. [] ext: there is ttp dorsum of foot at second metatarsal area, pedal pulse intact. mild ttp throughout the right extermity as well. Neurologic: Alert and oriented X 3, normal motor function, normal sensory function, no focal deficits noted. [] Psychologic: Affect normal, judgement normal, mood normal. [] Current Patient Data Vital Signs Vital Signs Date Time Temp Pulse Resp B/P (MAP) Pulse Ox O2 Delivery O2 Flow Rate FiO2 03/29/19 04:43 18 Nasal Cannula 3.0 03/29/19 04:05 97.6 88 120/66 (84) 97 97.6 EKG EKG [] Radiology/Procedures Radiology/Procedures [] Course & Med Decision Making Course & Med Decision Making Pertinent Labs and Imaging studies reviewed. (See chart for details) []X-ray show persistent second metatarsal fracture she had this 3 weeks ago as well she has not gotten follow-up. I tried to tell her the importance of getting regular follow-up and using the orthopedic shoe as prescribed. Limited weight- bearing as much as possible. She also spoke with pain management couple days which I think is a good idea. Hip and knee x-ray were negative acute the patient we picked up by her shortly and would be will be discharged in stable condition Dragon Disclaimer Dragon Disclaimer This electronic medical record was generated, in whole or in part, using a voice recognition dictation system. Departure Departure Impression: Primary Impression: Metatarsal fracture Disposition: 01 HOME, SELF-CARE Condition: STABLE Referrals: JOAN DAVISON MD Patient Instructions: Metatarsal Fracture, Undisplaced FILEMON FERRER MD 13, 2019 05:36
== END 2019-03-29 05:52 | disposition home or self-care (01) ==
LOC: ER 03:59
DX: S92.321A Displaced fracture of second metatarsal bone, right foot, initial encounter for closed fracture (principal); M25.561 Pain in right knee; M54.31 Sciatica, right side; I10 Essential (primary) hypertension; E11.9 Type 2 diabetes mellitus without complications; J44.9 Chronic obstructive pulmonary disease, unspecified; G89.29 Other chronic pain; Z88.0 Allergy status to penicillin; Z88.2 Allergy status to sulfonamides; Z88.5 Allergy status to narcotic agent; Z91.013 Allergy to seafood; W18.39XA Other fall on same level, initial encounter; Y93.89 Activity, other specified; Y92.89 Other specified places as the place of occurrence of the external cause; Y99.8 Other external cause status
CPT/HCPCS: 73502; 73562; 73630; 99284; Q0162

== ENCOUNTER 2019-03-30 23:35 | Emergency (ER) | payer OTHER ==
[~2019-03-30] VITALS: Ht 175.3 cm; Wt 136.1 kg
[2019-03-31] MEDS ORDERED: KETOROLAC 15 MG/ML VIAL. IM ONE (00:45)
[2019-03-31] MEDS ORDERED: NAPR-695 PO (01:36)
[2019-03-31] MEDS ORDERED: TRAM50TA PO (01:36)
--- NOTE | 2019-03-31 01:36 | PHYS DOC ---
Past Medical History Past Medical History: COPD, Depression, Diabetes-Type II, Hypertension Additional Past Medical Histor: CHRONIC BACK PAIN, spinal stenosis, edema, morbid obesity, narcotic abuse Past Surgical History: Other Additional Past Surgical Histo: Back surgery Smoking: Cigarettes Alcohol Use: None Drug Use: None Adult General Chief Complaint Chief Complaint: KNEE INJURY HPI HPI 58-year-old female presents via EMS with report of right knee pain status post fall when patient got up to use the restroom. Patient reports history of frequent falls recently. Patient reports she deals like her legs "give out". Denies head trauma or neck pain. Denies loss of consciousness. Denies laceration. Patient was recently diagnosed with a right metatarsal fracture. Patient does report she uses her cane with ambulation. Patient reports history of chronic back pain/spinal stenosis. He should also reports small abrasion to her left lateral ankle. Review of Systems Review of Systems Constitutional: Denies fever or chills Eyes: Denies redness or eye pain HENT: Denies nasal congestion or sore throat Respiratory: Denies cough or shortness of breath Cardiovascular: Denies chest pain or palpitations GI: Denies abdominal pain, nausea, or vomiting : Denies dysuria or hematuria Musculoskeletal: Reports knee pain Integument: Denies rash or skin lesions; reports abrasion to left ankle Neurologic: Denies headache, focal weakness or sensory changes Complete systems were reviewed and found to be within normal limits, except as documented in this note. Current Medications Current Medications Current Medications Medications (Trade) Dose Ordered Sig/Sunny Start Time Stop Time Status Last Admin Dose Admin Ketorolac Tromethamine (Toradol 15mg Vial) 15 mg 1X ONCE 03/31/19 00:45 03/31/19 00:46 DC 03/31/19 00:42 15 MG Neomycin/ Polymyxin/ Bacitracin (Triple Antibiotic Ointment) 1 pkt STK-MED ONCE 03/31/19 01:48 03/31/19 02:03 DC Tramadol HCl (Ultram) 50 mg STK-MED ONCE 03/31/19 01:48 03/31/19 02:03 DC Allergies Allergies Allergies Coded Allergies Type Severity Reaction Last Updated Verified Fish Containing Products Allergy Intermediate Itching 02/21/19 Yes Penicillins Allergy Intermediate 02/21/19 Yes Sulfa (Sulfonamide Antibiotics) Allergy Intermediate 02/21/19 Yes codeine Allergy Intermediate 02/21/19 Yes morphine Allergy Intermediate Hives 02/21/19 Yes Physical Exam Physical Exam Constitutional: Well developed, well nourished, no acute distress, non-toxic appearance HENT: Normocephalic, atraumatic, oropharynx moist Eyes: PERRL, EOMI, conjunctiva normal, no discharge Neck: Normal range of motion, no midline tenderness, supple Cardiovascular: Heart rate normal, regular rhythm Lungs & Thorax: Bilateral breath sounds clear to auscultation, no wheezing Abdomen: Soft, no tenderness, obese Skin: Warm, dry, no erythema, small 1 cm abrasion to left lateral ankle-nonbl eeding Back: No midline tenderness, low lumbar paraspinal tenderness, no CVA tenderness Extremities: Range of motion intact, right knee tenderness with range of motion, anterior drawer test negative. Joint appears stable. No obvious deformity, distal sensation and pulses intact Neurologic: Alert and oriented X 3, normal motor function, normal sensory function, no focal deficits noted Psychologic: Affect normal, judgement normal Current Patient Data Vital Signs Vital Signs Date Time Temp Pulse Resp B/P (MAP) Pulse Ox O2 Delivery O2 Flow Rate FiO2 03/31/19 01:51 18 96 03/31/19 01:45 74 98/56 (70) Room Air 03/30/19 23:40 97.9 97.9 EKG EKG [] Radiology/Procedures Radiology/Procedures R knee pain 3 views (preliminary interpretation by ED physician): No acute fracture/dislocation noted Course & Med Decision Making Course & Med Decision Making Pertinent Imaging studies reviewed. (See chart for details) Patient presents with report of fall this evening with right knee pain. Patient reports she injured the same knee 2 days ago. Patient also at that time had fractured a right metatarsal. Patient reports frequent falls. Patient offered admission due to frequent falls. Patient denies offer. Patient wants to make sure her knee is not fractured and is requesting pain medication. X-ray obtained without acute fracture or dislocation. Juwan wrap applied. Small left ankle abrasion cleaned and dressed. IM ketorolac and by mouth tramadol provided. K [facility] reports obtained. Last narcotic pain meds filled 1 month ago. Rx for tramadol and naproxen provided. Patient stable for discharge with outpatient follow-up with PCP/orthopedics. Orthopedic referral provided. Discussed findings and plan with patient and family, who acknowledge understanding and agreement. Dragon Disclaimer Dragon Disclaimer This electronic medical record was generated, in whole or in part, using a voice recognition dictation system. Splinting Splinting : Location: right knee Pre-Made Type: Juwan bandage Pre-Proc Neuro Vasc Exam: normal Post-Proc Neuro Vasc Exam: normal, unchanged from pre-exam Departure Departure Impression: Primary Impression: Fall Additional Impression: Knee pain, right Disposition: HOME, SELF-CARE Condition: STABLE Referrals: NO PCP (PCP) JOAN DAVISON MD Patient Instructions: Fall Prevention and Home Safety, [id number], Knee Pain, [id number], Knee Wraps (Elastic Bandage) and RICE Scripts Naproxen (NAPROXEN) 375 Mg Tablet 1 TAB PO BID PRN for PAIN, #30 TAB Prov: ANIBAL LINO DO 03/31/19 Tramadol Hcl (TRAMADOL HCL) 50 Mg Tablet 50 MG PO Q6HRS PRN for PAIN, #10 TAB Take each tablet with one (1) regular strength Tylenol 325mg. Prov: ANIBAL LINO DO 03/31/19 Problem Qualifiers Primary Impression: Fall Encounter type: initial encounter Qualified Codes: W19.XXXA - Unspecified fall, initial encounter Additional Impression: Knee pain, right Chronicity: acute Qualified Codes: M25.561 - Pain in right knee ANIBAL LINO DO Mar 31, 2019 01:36
[2019-03-31 01:45] VITALS: BP 98/56
[2019-03-31] MEDS ORDERED: traMADol 50 MG TABLET ONE (01:48)
[2019-03-31] MEDS ORDERED: NEOMY/BACITR/POLYMYXIN OINT PACKET. TP ONE ×2 (01:48→02:00)
[2019-03-31] MEDS ORDERED: traMADol 50 MG TABLET PO ONE (02:00)
--- NOTE | 2019-03-31 10:40 | RAD ---
EXAM: RIGHT KNEE, 3 VIEWS. HISTORY: Right knee pain, fall. COMPARISON: None. FINDINGS: No fractures are identified. Joint spaces are maintained. There are small osteophytes along all 3 compartments. Alignment is normal. There is no joint effusion. A Nikole-Stieda lesion suggests a chronic medial collateral ligament injury. IMPRESSION: 1. No fracture. Mild tricompartmental osteoarthritis. Electronically signed by: Darryl Howell MD (03/31/2019 10:36 AM) [facility]
== END 2019-03-31 01:50 | disposition home or self-care (01) ==
LOC: ER 23:35
DX: S90.512A Abrasion, left ankle, initial encounter (principal); M25.561 Pain in right knee; G89.29 Other chronic pain; M54.5 Low back pain; E11.9 Type 2 diabetes mellitus without complications; I10 Essential (primary) hypertension; J44.9 Chronic obstructive pulmonary disease, unspecified; F17.210 Nicotine dependence, cigarettes, uncomplicated; Z98.890 Other specified postprocedural states; E66.01 Morbid (severe) obesity due to excess calories; Z68.41 Body mass index [BMI] 40.0-44.9, adult; Z88.0 Allergy status to penicillin; Z88.2 Allergy status to sulfonamides; Z88.5 Allergy status to narcotic agent; Z91.013 Allergy to seafood; W18.39XA Other fall on same level, initial encounter; Y93.89 Activity, other specified; Y92.89 Other specified places as the place of occurrence of the external cause; Y99.8 Other external cause status
CPT/HCPCS: 73562; 96372; 99284; J1885

== ENCOUNTER 2019-05-03 16:22 | Emergency (ER) | payer OTHER, MEDICAID ==
[~2019-05-03] VITALS: Ht 170.2 cm; Wt 136.1 kg
[~2019-05-03 16:22] MED LIST changes: +NAPR-695 PO; -PANT40TA5 PO; +PANT40TA77 PO; -TIZA4TAB PO; +TIZA4TAB2 PO; +TRAM50TA PO
[2019-05-03 16:39] VITALS: BP 147/64
[2019-05-03] MEDS ORDERED: ACETAMINOPHEN 500 MG TABLET PO ONE (17:15)
--- NOTE | 2019-05-03 18:07 | PHYS DOC ---
Past Medical History Past Medical History: COPD, Depression, Diabetes-Type II, Hypertension Additional Past Medical Histor: CHRONIC BACK PAIN, spinal stenosis, edema, morbid obesity, narcotic abuse Past Surgical History: Other Additional Past Surgical Histo: Back surgery Alcohol Use: None Drug Use: None Adult General Chief Complaint Chief Complaint: MECHANICAL FALL HPI HPI Patient is a 59 year old female with history of diabetes type 2, hypertension, COPD, who presents to the ED today complaining of sharp intermittent 7 out of 10 bilateral knee pain and right foot pain status post falling. No loss of consciousness. Patient states the pain is worse on weight bearing. Review of Systems Review of Systems Constitutional: Denies fever or chills [] Musculoskeletal: Reports bilateral knee pain and right foot pain Integument: Denies rash or skin lesions [] Neurologic: Denies headache, focal weakness or sensory changes [] All other systems were reviewed and found to be within normal limits, except as documented in this note. Current Medications Current Medications Current Medications Medications (Trade) Dose Ordered Sig/Sunny Start Time Stop Time Status Last Admin Dose Admin Acetaminophen (Tylenol) 1,000 mg 1X ONCE 05/03/19 17:15 05/03/19 17:16 DC 05/03/19 17:08 1,000 MG Fentanyl Citrate (Fentanyl 2ml Vial) 50 mcg 1X ONCE 05/03/19 18:30 05/03/19 18:31 05/03/19 18:07 50 MCG Allergies Allergies Allergies Coded Allergies Type Severity Reaction Last Updated Verified Fish Containing Products Allergy Intermediate Itching 02/21/19 Yes Penicillins Allergy Intermediate 02/21/19 Yes Sulfa (Sulfonamide Antibiotics) Allergy Intermediate 02/21/19 Yes codeine Allergy Intermediate 02/21/19 Yes morphine Allergy Intermediate Hives 02/21/19 Yes Physical Exam Physical Exam Constitutional: Well developed, well nourished, no acute distress, non-toxic appearance. [] Skin: Warm, dry, no erythema, no rash. [] Back: No tenderness, no CVA tenderness. [] Extremities: Morbidly obese patient, bilateral knees with no obvious deformity, bilateral lower extremities with no obvious deformity. Tenderness diffusely on palpation of bilateral knees. Full range of motion to bilateral knees +2 bilateral pedal pulses. Right foot with diffuse tenderness on top of the foot as well as the right toes. Full range of motion to the right toes. Cap refill less than 2 seconds bilateral tonsils. Neurologic: Alert and oriented X 3, normal motor function, normal sensory function, no focal deficits noted. [] Psychologic: Affect normal, judgement normal, mood normal. [] Current Patient Data Vital Signs Vital Signs Date Time Temp Pulse Resp B/P (MAP) Pulse Ox O2 Delivery O2 Flow Rate FiO2 05/03/19 16:39 97.9 86 20 147/64 (91) 94 Nasal Cannula 3.0 97.9 EKG EKG [] Radiology/Procedures Radiology/Procedures [] Course & Med Decision Making Course & Med Decision Making Pertinent Labs and Imaging studies reviewed. (See chart for details) This is a 59-year-old female patient presenting to the ED today with bilateral knee pain and right foot pain status post falling. Bilateral knee x-rays interpreted by Dr. Singer are negative for any acute findings. Right foot x-rays interpreted by Dr. Singer noted for right fifth proximal phalanx fracture-acute, orthopedic shoe applied to the right foot, Juwan bandages to bilateral knees. Ice elevation encouraged. OTC pain relievers. Follow-up with orthopedic doctor in the course of this week. Dragon Disclaimer Dragon Disclaimer This electronic medical record was generated, in whole or in part, using a voice recognition dictation system. Departure Departure Impression: Primary Impression: Knee contusion Additional Impressions: Fall from standing Toe fracture, right Disposition: 01 HOME, SELF-CARE Condition: STABLE Referrals: NO PCP (PCP) SEAN NICHOLAS MD Follow-up in the course of this week Patient Instructions: Contusion, [id number], Foot Fracture-Brief Additional Instructions: You were evaluated in the emergency room for bilateral knee contusions and right foot fracture. Please follow-up with the orthopedic doctor provided in the course of this week. Try to ice and elevate the affected areas. Problem Qualifiers Primary Impression: Knee contusion Encounter type: initial encounter Laterality: right Qualified Codes: S80.01XA - Contusion of right knee, initial encounter Additional Impressions: Fall from standing Encounter type: initial encounter Qualified Codes: W19.XXXA - Unspecified fall, initial encounter Toe fracture, right Encounter type: initial encounter Toe: lesser toe Fracture type: closed Phalanx: proximal Fracture alignment: nondisplaced Qualified Codes: S92.514A - Nondisplaced fracture of proximal phalanx of right lesser toe(s), initial encounter for closed fracture CARLA ROSARIO APRN May 03, 2019 18:07
[2019-05-03] MEDS ORDERED: fentaNYL PF VIAL 100 MCG/2 ML VIAL IM ONE (18:30)
--- NOTE | 2019-05-04 05:24 | RAD ---
Three-view right foot radiographs 05/03/2019 CLINICAL HISTORY: Right foot pain post fall. AP, lateral and oblique digital radiographs of the right foot were obtained. Comparison study is dated 02/20/2019. A nonunited fracture of the medial aspect of the proximal metaphysis of the right second metatarsal is again seen. An acute transverse fracture is seen involving the distal metaphysis of the proximal phalanx of the right fourth toe. The alignment of the fracture fragments is near-anatomic. An acute oblique fracture is seen involving the medial aspect of the proximal metaphysis of the proximal phalanx of the right fifth toe. The fracture fragment is mildly displaced medially. The fracture extends to the MTP joint. No additional acute fracture is seen. Degenerative changes are seen throughout the interphalangeal joints, first MTP joint and tarsometatarsal joints throughout the right foot. IMPRESSION: Acute fractures are seen involving the proximal phalanges of the right fourth and fifth toes as discussed above. Electronically signed by: Jose A Chaudhry MD (05/04/2019 5:21 AM) [facility]
--- NOTE | 2019-05-04 05:58 | RAD ---
4 view left knee radiographs 05/03/2019 CLINICAL HISTORY: Fall with left knee pain. AP, lateral, oblique and sunrise digital radiographs of the left knee were obtained. No fracture or dislocation left knee is seen. Mild degenerative changes are seen involving all 3 compartments of the left knee. IMPRESSION: No fracture or dislocation of the left knee is seen. Electronically signed by: Jose A Chaudhry MD (05/04/2019 5:55 AM) [facility]
--- NOTE | 2019-05-04 06:01 | RAD ---
4 view right knee radiographs 05/03/2019 CLINICAL HISTORY: Fall with right-sided knee pain. AP, oblique, lateral and sunrise digital radiographs of the right knee were obtained. No fracture or dislocation right knee is seen. Mild to moderate degenerative changes are seen involving all 3 compartments of the right knee. IMPRESSION: No fracture or dislocation of the right knee is seen. Electronically signed by: Jose A Chaudhry MD (05/04/2019 5:58 AM) [facility]
== END 2019-05-03 18:24 | disposition home or self-care (01) ==
LOC: ER 16:22
DX: S92.514A Nondisplaced fracture of proximal phalanx of right lesser toe(s), initial encounter for closed fracture (principal); S80.01XA Contusion of right knee, initial encounter; M25.562 Pain in left knee; E11.9 Type 2 diabetes mellitus without complications; I10 Essential (primary) hypertension; J44.9 Chronic obstructive pulmonary disease, unspecified; G89.29 Other chronic pain; E66.01 Morbid (severe) obesity due to excess calories; Z68.42 Body mass index [BMI] 45.0-49.9, adult; Z98.890 Other specified postprocedural states; Z88.0 Allergy status to penicillin; Z88.2 Allergy status to sulfonamides; Z88.5 Allergy status to narcotic agent; Z91.013 Allergy to seafood; W18.39XA Other fall on same level, initial encounter; Y93.89 Activity, other specified; Y92.89 Other specified places as the place of occurrence of the external cause; Y99.8 Other external cause status
CPT/HCPCS: 73564; 73630; 96372; 99284; J3010

== ENCOUNTER → 2019-07-30 | Outpatient (CLI) | payer OTHER, MEDICAID ==
[2019-07-01 13:20] VITALS: BP 130/95
[~2019-07-30] MED LIST changes: -CLON1PAT2 TD; +CLON1PAT6 TD; +DOXY-96 PO; -DOXY100T9 PO; -GLIM4TAB2 PO; +GLIM4TAB4 PO; +HYDR-3164 PO; +MELA3TAB56 PO; +[UNRECOGNIZED DRUG - CODE] INH
--- NOTE | 2019-07-31 01:53 | PAIN ---
DATE OF SERVICE: 07/30/2019 INITIAL CONSULTATION FOR PAIN CLINIC CHIEF COMPLAINT: Low back and right lower extremity pain and neck and right upper extremity pain. HISTORY OF PRESENT ILLNESS: This is a 59-year-old female who presents with history of pain for many years since 1976 by her report. The patient reports she has had 5 back surgeries with pain in the low back, right lower extremity, persistent radiculopathy and also in the right arm and shoulder. The patient reports she has been gaining weight, she has not been able to exercises because the pain and is getting much worse over time. The patient reports she has had epidural injections in the past, trigger point injections in the past, some of which have helped but has mostly just been temporary. Again, the patient had 5 lumbar surgeries, most recently in 2004. The patient reports this awakens her from sleep, at least 6 times a night, affects her bowel and bladder control, but no loss of continence. She is using a wheelchair, cane or walker, and whenever she cannot, it does affect her walking significantly. She is in a wheelchair today. The patient did have MRI scan of the lumbar and cervical spine. Cervical spine is showing multilevel degenerative disk disease with no significant mass effect on the cord or cord signal abnormality. No high-grade stenoses. Lumbar spine shows multiple levels of previous surgery with degenerative disk disease and degenerative changes of the lumbar spine with endplate spurring at L2-L3, L3-L4, L4-L5 and L5-S1 with [id number] spinal canal stenosis at L4-L5, [id number]-[id number] narrowing of left neural foramen at L5-S1, severe spinal canal stenosis at L3-L4 and moderate narrowing at L2-L3. The patient rates the disability from 0-10, 10 being the worst, is a 10 in all categories, family home responsibilities, recreation, occupation, social activity, sexual behavior, self-care and life-support activities. PAST MEDICAL HISTORY: Significant for COPD, diabetes, obesity, dizziness, irritable bowel syndrome and seizures. PREVIOUS SURGERIES: Hysterectomy in 1978, bilateral eye surgeries and then lumbar surgery x 5, most recently in 2004. CURRENT MEDICATIONS: The patient's medications are complete and well listed on the patient's chart. ALLERGIES: THE PATIENT IS ALLERGIC TO PENICILLIN, SULFA, CODEINE AND MORPHINE. FAMILY HISTORY: Positive for cancer, heart disease, strokes and diabetes. SOCIAL HISTORY: The patient does not drink alcohol, does not smoke and does not use illegal, illicit or recreational drugs. Is and lives with her spouse, lives locally in [place], [place]. REVIEW OF SYSTEMS: The patient's review of systems is positive for those items mentioned in the history of present illness. All systems reviewed and otherwise negative. It is complete, full and well documented on the patient's chart. PHYSICAL EXAMINATION: VITAL SIGNS: The patient's blood pressure is 200/109, pulse is 82, respirations 18, temperature is 98.8 degrees Fahrenheit, height is 5 feet 6 inches and weight is 275 pounds. GENERAL: The patient is awake, alert, oriented, appropriate, very pleasant demeanor. HEENT: Shows normocephalic, atraumatic. Extraocular movements are intact and symmetrical. Oral cavity: Mucous membranes moist and pink. Dentition is intact. NECK: Shows anterior throat supple without palpable lymphadenopathy noted. Swallow reflex symmetrical. Neck shows full rotational motion of the cervical spine without significant tenderness or difficulty. CHEST: Shows normal on inspection. Breath sounds clear to auscultation bilaterally. HEART: Shows S1, S2 clear. No murmurs auscultated. ABDOMEN: Obese, soft, nontender and nondistended. No palpable organomegaly is noted. No rebound or guarding demonstrated. BACK: Shows spine grossly in the midline, normal-appearing cervical lordotic curvature, slightly increased thoracic kyphotic curvature and flattening of lumbar lordotic curvature with well-healed surgical scarring noted in the lumbar distribution. Cervical paraspinous muscle shows symmetrical on inspection. On palpation, some moderate tenderness diffusely bilaterally noting diffusely without significant radiation in the low cervical paraspinous muscles and superior medial trapezius, more tender on the right than the left but without evidence of atrophy, hypertrophy or trigger points. The patient's lower back shows well-healed surgical scarring. Once again, lumbar paraspinous muscles are symmetrical on inspection. With palpation, some moderate tenderness diffusely throughout the upper, middle and lower distribution of the paraspinous muscles bilaterally without significant radiation. The patient has good rotational motion of lumbar spine, both laterally as well as extension and flexion without significant increase in pain. EXTREMITIES: The patient's extremities show upper extremity deep tendon reflexes at 2+ in the biceps and triceps tendons. Motor exam is 5/5 with railway shunter strength, bicep and tricep flexion. Lower extremities show deep tendon reflexes 1+ in the patellar and tendo-calcaneus tendons. Motor exam is approximately 4 on a scale of 5 but symmetrical with dorsiflexion, extension, quadriceps and hamstring flexion. Peripheral pulses are 2+ radial, 1+ posterior tibial. No peripheral edema is noted bilaterally in the upper or lower extremities. The patient is able to stand, but has difficulty getting up from the seated position and again prefers to stay in the wheelchair. She is using this for her travel today. SKIN: Shows warm and dry, good turgor. No edema. No sores, rashes or bruising. IMPRESSION: 1. This is a 59-year-old female with long history of low back and radicular pain status post lumbar surgeries x 5 with no further surgical evaluation recently. 2. Obesity. 3. Diabetes. 4. Chronic obstructive pulmonary disease with oxygen dependency. PLAN: Options were discussed with the patient and the patient's at length today including conservative medical management, physical therapies, interventional techniques and she would like to pursue most conservative manner and we discussed significant weight loss and how important this may be with not only her back, but also with her hips and knees as she is having significant pain in these as well. The patient understands. We will set the patient up for water therapy, as I feel interventional techniques at this time may be very limited if effective at all. The patient is agreeable and would like to try the water therapy. We also recommend following up with Neurosurgery in light of recent MRI study to make sure there are no other interventional surgeries that might help if therapy is not successful. The patient understands and agrees, will follow up after physical therapy. JOEL THAPA MD DR: JOANNE/millie JOB#: [id number] / [id number]
== END | disposition home or self-care (01) ==
LOC: PNCL 13:23
PROVIDERS: ATTEND Anesthesiology
DX: M54.5 Low back pain (principal); M79.604 Pain in right leg; M54.2 Cervicalgia; M79.601 Pain in right arm; J44.9 Chronic obstructive pulmonary disease, unspecified; E11.9 Type 2 diabetes mellitus without complications; E66.9 Obesity, unspecified; Z90.710 Acquired absence of both cervix and uterus; Z88.0 Allergy status to penicillin
CPT/HCPCS: G0463

== ENCOUNTER → 2019-09-04 | Outpatient (CLI) | payer OTHER, MEDICAID ==
[2019-07-01 13:20] VITALS: BP 130/95
--- NOTE | 2019-09-04 13:44 | KCIC ---
EXAMINATION: Magnetic resonance imaging (MRI) of the lumbar spine without contrast 09/04/2019 11:45 AM HISTORY: Low back pain with previous surgery in 2005 with postoperative infection. TECHNIQUE: Multiplanar multi-weighted MRI of the lumbar spine was performed without intravenous contrast using the standard lumbar spine protocol. Contrast information: None administered. COMPARISON: None available. FINDINGS: There is minimal retrolisthesis of L2 on L3. Vertebral body heights are maintained. Schmorl's nodes are identified involving the superior endplate of L1, superior endplate of L2, superior and inferior endplate of L3, and superior endplates of L4 and L5. Modic type II endplate degenerative changes are identified at both legs were L5-S1. Calcified disc space noted at L5-S1 with minimal edema. There is congenital narrowing of the spinal canal secondary to shortened pedicles. Abdominal aorta is normal in course and caliber. Visualized portions of the retroperitoneum appear normal. Conus medullaris terminates at T12-L1. Distal spinal cord signal intensity is normal in all sequences. L2-L3: There is a moderate disc bulge with right foraminal disc protrusion. There is mild facet arthropathy ligamentum flavum infolding. There is moderate right and mild left neuroforaminal stenosis. Right lateral recess stenosis. Moderate spinal canal stenosis, exacerbated by epidural lipomatosis. 3-4: There is a moderate circumferential disc bulge with right central disc extrusion. There is severe facet arthropathy ligamentum flavum infolding. Moderate left and severe right neuroforaminal stenosis. Severe right lateral recess stenosis with moderate to severe spinal canal stenosis. L4-L5: There is a moderate circumferential disc bulge with left foraminal disc protrusion. There is moderate facet arthropathy, left greater than right. There is ligamentum flavum infolding. There is left lateral recess stenosis. There is severe left and moderate right neuroforaminal stenosis. Mild to moderate spinal canal stenosis. L5-S1: Partial discectomy changes are identified on the left. There is moderate facet arthropathy with partial laminectomy changes. No definite recurrent disc herniation. Epidural lipomatosis effaces the thecal sac at this level. Moderate left neuroforaminal stenosis. No spinal canal stenosis. IMPRESSION: Moderate to advanced degenerative changes of the lumbar spine are present, as described in detail above. Electronically signed by: Radha Loo MD (09/04/2019 1:41 PM) [facility]
== END | disposition home or self-care (01) ==
LOC: KCIC MRI 11:25
PROVIDERS: ATTEND Internal Medicine
DX: M47.816 Spondylosis without myelopathy or radiculopathy, lumbar region (principal); M48.07 Spinal stenosis, lumbosacral region; M51.26 Other intervertebral disc displacement, lumbar region; M12.88 Other specific arthropathies, not elsewhere classified, other specified site; E88.2 Lipomatosis, not elsewhere classified
CPT/HCPCS: 72148

== ENCOUNTER → 2019-09-21 | Outpatient (CLI) | payer OTHER, MEDICAID ==
[2019-07-01 13:20] VITALS: BP 130/95
[2019-09-21 13:28] LABS: BASO # 0.1 x10^3/uL (0.0-0.2); BASO % 1 % (0-3); EOS # 0.2 x10^3/uL (0.0-0.7); EOS % 3 % (0-3); HEMATOCRIT 31.4 % (36.0-47.0); HEMOGLOBIN 10.3 g/dL (12.0-15.5); LYMPH # 1.6 x10^3/uL (1.0-4.8); LYMPH % 20 % (24-48); MEAN CORPUSCULAR HEMOGLOBIN 29 pg (25-35); MEAN CORPUSCULAR HGB CONC 33 g/dL (31-37); MEAN CORPUSCULAR VOLUME 87 fL (79-100); MONO # 0.6 x10^3/uL (0.0-1.1); MONO % 8 % (0-9); NEUT # 5.5 x10^3/uL (1.8-7.7); NEUT % 68 % (31-73); PLATELET COUNT 133 x10^3/uL (140-400)
[2019-09-21 13:47] LABS: ALBUMIN 3.3 g/dL (3.4-5.0); ALBUMIN/GLOBULIN RATIO 0.7 (1.0-1.7); CALCIUM 9.7 mg/dL (8.5-10.1); CREATININE 2.7 mg/dL (0.6-1.0); GFR 17.9; POTASSIUM 3.4 mmol/L (3.5-5.1); TOTAL BILIRUBIN 0.5 mg/dL (0.2-1.0); TOTAL PROTEIN 8.1 g/dL (6.4-8.2)
--- NOTE | 2019-09-21 18:06 | EEG ---
DATE OF SERVICE: 09/21/2019 EEG NUMBER: [id number]. OBJECTIVE: This is a 59-year-old female patient with history of abnormal movements. EEG was requested to evaluate cerebral activity and help rule out seizure. METHODS: Twenty electrodes were applied according to the international 10-20 electrode placement system. EKG monitoring, hyperventilation, intermittent photic stimulation, monopolar and bipolar montages are routinely utilized. The record was obtained on a digital system with video monitoring. FINDINGS: 1. Background: The patient was recorded in the awake, drowsy, and sleep states. The overall background amplitude is 10-20 microvolts. A posterior dominant rhythm of 7-8 Hz is observed, but is in the 8 Hz range most time. 2. Abnormalities: No specific epileptiform discharge or electrographic seizure is seen. No focal or diffuse slowing. 3. Activation: Hyperventilation was not performed because the patient was unable to perform the technique. Intermittent photic stimulation was performed with photic driving. IMPRESSION: This EEG is a borderline study for the awake, drowsy, and sleep states. No focal, lateralizing, specific epileptiform discharge, or electrographic seizure is seen. YOKASTA FLORES MD DR: JEIMY/millie JOB#: [id number] / [id number] MADISYN
== END | disposition home or self-care (01) ==
LOC: RT 10:54
PROVIDERS: ATTEND Psychiatry & Neurology Neurology
DX: G25.9 Extrapyramidal and movement disorder, unspecified (principal); M81.0 Age-related osteoporosis without current pathological fracture
CPT/HCPCS: 36415; 80053; 82306; 82550; 82607; 84443; 85025; 95816

== ENCOUNTER 2020-04-02 12:17 | Emergency (ER) | payer OTHER, MEDICAID ==
[2019-07-01 13:20] VITALS: BP 130/95
[~2020-04-02 12:17] MED LIST changes: +EPINEPHrine SYRINGE 1 MG/10 ML SYRINGE ONE; -GLIM4TAB4 PO; +GLIM4TAB8 PO; +MELA3TAB4 PO; -MELA3TAB56 PO; +PREG-9 PO; -PREG75CA PO; -QUET300T7 PO; +QUET300T89 PO; +SODIUM BICARB ADULT 8.4% 50 MEQ/50 ML DISP.SYRIN. ONE
--- NOTE | 2020-04-02 12:35 | PHYS DOC ---
Past Medical History Past Medical History: COPD, Depression, Diabetes-Type II, Hypertension Additional Past Medical Histor: CHRONIC BACK PAIN, spinal stenosis, edema, morbid obesity, narcotic abuse Past Surgical History: Other Additional Past Surgical Histo: Back surgery Smoking Status: Former Smoker Alcohol Use: None Drug Use: None General Adult HPI: HPI: Patient is a 59 year old female who presents as a code blue. Patient reportedly was found down at home by her who had seen her 10 minutes prior to finding her. She was given epi x4 en route. CPR initiated by EMS. She reportedly felt well prior to being found down. Review of Systems: Review of Systems: Unable to obtain Heart Score: Risk Factors: Risk Factors: DM, Current or recent (<one month) smoker, HTN, HLP, family history of CAD, obesity. Risk Scores: Score 0 - 3: 2.5% MACE over next 6 weeks - Discharge Home Score 4 - 6: 20.3% MACE over next 6 weeks - Admit for Clinical Observation Score 7 - 10: 72.7% MACE over next 6 weeks - Early Invasive Strategies Allergies: Allergies: Allergies Coded Allergies Type Severity Reaction Last Updated Verified Fish Containing Products Allergy Intermediate Itching 02/21/19 Yes Penicillins Allergy Intermediate 02/21/19 Yes Sulfa (Sulfonamide Antibiotics) Allergy Intermediate 02/21/19 Yes codeine Allergy Intermediate 02/21/19 Yes morphine Allergy Intermediate Hives 02/21/19 Yes Physical Exam: PE: General: unresponsive, toxic appearing HEENT: Normocephalic, atraumatic, no drainage from eyes Cardiology: No radial/femoral pulses bilaterally, no heart sounds Pulmonary: Bilateral breath sounds Abdomen: soft, nondistended Skin: intact, dry, cool Extremities: No deformities Neurology: nonresponsive, nonverbal, no movement, GCS 3 EKG: EKG: [] Radiology/Procedures: Radiology/Procedures: [] Course & Med Decision Making: Course & Med Decision Making Pertinent Labs and Imaging studies reviewed. (See chart for details) Patient is 59-year-old female who presents to the emergency room after being found without a pulse at home. At arrival patient was pulseless. She was not intubated. Intubation was done without any difficulty. She did have food in her airway. This was suctioned out. Compressions were continued. Patient was given epinephrine, calcium, bicarb. She was in PEA or asystole during her arrest. Bedside ultrasound was done and shows no cardiac activity. She does not have pneumothorax or pericardial effusion on ultrasound. Time of was called at 1231 Dragon Disclaimer: Dragon Disclaimer: This electronic medical record was generated, in whole or in part, using a voice recognition dictation system. Departure Departure Disposition: 20 Referrals: DONNIE ELIZONDO COMBATANT SWIMMER (PCP) Justicifation of Admission Dx: Justifications for Admission: Justification of Admission Dx: No Procedure Note Procedure: Intubation Performed by: Ekaterina Zhou MD Consent: Verbal consent not obtained. The procedure was performed in an emergent situation. Required items: required blood products, implants, devices, and special equipment available Patient identity confirmed: arm band Time out: Immediately prior to procedure a "time out" was called to verify the correct patient, procedure, equipment, support teacher and site/side marked as req uired. Indications: respiratory failure and airway protection Intubation method: [place] scope Patient status: paralyzed (RSI) Preoxygenation: BVM Sedatives: etomidate Paralytic: succinylcoline Laryngoscope size: Mac 4 Tube size: 7 mm Tube type: cuffed Number of attempts: 1 Cords visualized: yes Post-procedure assessment: chest rise, BS = bilaterally none over epigastrum, + CO2 detector Breath sounds: equal and absent over the epigastrium Cuff inflated: yes Tube secured with: adhesive tape Chest x-ray interpreted by me. Chest x-ray findings: endotracheal tube in appropriate position Patient tolerance: Patient tolerated the procedure well with no immediate complications. EKATERINA ZHOU MD Apr 02, 2020 12:34
== END 2020-04-02 14:25 | disposition expired ==
LOC: ER 12:17
DX: I46.9 Cardiac arrest, cause unspecified (principal); J44.9 Chronic obstructive pulmonary disease, unspecified; E11.9 Type 2 diabetes mellitus without complications; I10 Essential (primary) hypertension; G89.29 Other chronic pain; Z87.891 Personal history of nicotine dependence; Z88.0 Allergy status to penicillin; Z88.2 Allergy status to sulfonamides; Z88.5 Allergy status to narcotic agent; Z91.013 Allergy to seafood
CPT/HCPCS: 31500; 99285; J0171; J3490